=== PATIENT | male | born 1950 | race Caucasian/White ===

== ENCOUNTER 2022-04-16 14:15 | Outpatient (RCR) | payer OTHER, SELFPAY ==
[2022-03-26 13:40] VITALS: BP 141/83; PULSE 83; TEMP 36.6
--- NOTE | 2022-03-26 15:01 | HP.PCM_ITS ---
History of Present Illness Date of Service: 03/26/22 Chief Complaint: Non healing right leg ulcer History of Wound: Patient is 71 year old male who has had a non healing wound on his right anterior leg. He has had this ulcer for approximately 9 months. He has been cleaning it daily with hydrogen peroxide and then placing antibiotic ointment. He has issues with bilateral lower extremity edema. He states he wears compression socks and an MATT wrap to help his chronic edema. He does sleep in a recliner. He has a history of spinal stenosis with surgeries 12/05, 10/08, and 02/09 and hypothyroidism and polyneuropathy from the back pain, and also has lower extremity leg weakness from his back pain. Obtained a wound culture today, 03/26/22. Today he denies fever, chills, nausea and vomiting. He states he has a good appetite. Progress of Wound: Right leg ulcer is pink. He has significant edema present. [facility] Medical History (Updated 03/29/22 @ 22:28 by Adele Stanford SPICE ROOM WORKER, SPICE ROOM WORKER-C) Back pain with history of spinal surgery Edema of both lower extremities Hypothyroidism Polyneuropathy Spinal stenosis ROS Constitutional Constitutional: Denies chills or fever(s) Eyes Eyes: Reports none ENT HEENT: Reports none Cardiovascular Cardiovascular: Reports leg edema and leg ulcers; Denies chest pain, dyspnea or vomiting Respiratory/Chest Respiratory/Chest: Reports none Gastrointestinal Gastrointestinal: Denies diarrhea, nausea or vomiting Musculoskeletal Musculoskeletal: Reports back pain and muscle weakness Integumentary Integumentary: Reports skin ulcer and skin swelling Neurologic Neurologic: Reports weakness and other Details: History of polyneuropathy Psychiatric Psychiatric: Reports none Endocrine Endocrinology: Reports other Details: History of hypothyroidism Vital Signs Vital Signs Vital Signs: 03/26/22 13:40 Temperature 97.8 F Temperature Source Temporal Pulse Rate 83 Blood Pressure 141/83 H Blood Pressure Mean 102 Blood Pressure Source Monitor Blood Pressure Position Sitting Blood Pressure Location Right Arm Physical Exam Const alert, oriented x3 and no apparent distress General Appearance: cooperative HEENT normocephalic Neck full ROM Resp normal respiratory effort, normal air movement and clear to auscultation bilaterally Effort and Inspection: able to speak in complete sentences Cardio regular rate and regular rhythm GI normal to inspection, nondistended, normoactive bowel sounds, soft to palpation and non-tender Extremity normal capillary refill Extremity Narrative: Bilateral lower extremity edema which is worse on the the right than the left Skin Wound Narrative: Right anterior leg ulcer is superficial in depth. It is tender to palpation. Neuro oriented x3 and moves all extremities Psych mental status grossly normal Debridement Note Debridement Note Wound debrided: anterior leg ulcer Laterality: Right Type of Debridement: Excisional debridement Anesthesia Used: 5% Lidocaine Gel Depth: Down to and including healthy tissue and in the subcutaneous layer Percentage of wound debrided: 100 Instrument Used: 5mm curette Tissue Removed: Devitalized tissue and slough Severity: Fat Layer Exposed Amount of bleeding with debridement: Mild Bleeding Controlled with: Pressure and Compression and gauze Patient tolerated procedure: Patient tolerated procedure well Post-Debridement Measurements and Additional Note: Post-Debridement Measurements/Treatment - Nurse 1 - General Ulcer Assessment Start: 03/26/22 13:40 Freq: Status: Active Protocol: GREGORY Activity Type Activity Date Activity User E-sign Co-sign Detail Recorded Client Recorded Date Recorded By Document 03/26/22 13:40 CHUCK [id number] 03/26/22 13:51 CHUCK 03/26/22 13:40 WC - Today's Visit Information Type of service Follow-up Visit (Physician/PROCESS ENVIRONMENTAL TECHNICIAN ) Arrival Mode Ambulatory Patient Identification Verified (Name & Yes ) Vital Signs Temperature (97.8 F-99.1 F) 97.8 F Temperature Source Temporal Pulse Rate (60-100) 83 Pulse Location Monitor Blood Pressure (90/60-120/80) 141/83 H Blood Pressure Mean 102 Source Monitor Position Sitting Blood Pressure Location Right Arm History Since Last Visit- (Skip if this is Patient's initial visit) Have you changed medications since your No last visit? Any new allergies or adverse reactions No Had a fall/change in ADL's that may No increase risk of falls Signs or symptoms of abuse and/or No neglect since last visit Have you been in the hospital since your No last visit? Has dressing in place as prescribed No Has compression in place as prescribed N/A Has offloadiing in place as prescribed N/A Experienced any changes in pain level or No management Left Footwear Regular Shoe Right Footwear Regular Shoe Pain Scale: 0-10 Numeric Is Patient Pain Free? Yes - Nurse 1 - General Ulcer Measurement Start: 03/26/22 13:40 Freq: Status: Active Protocol: Activity Type Activity Date Activity User E-sign Co-sign Detail Recorded Client Recorded Date Recorded By Document 03/26/22 13:40 [id number] 03/26/22 13:51 03/26/22 13:40 Wound Center Nurse 1 #1 Right Gallegos -Current Size (cm) - Length 3.6 -Current Size (cm) - Width 2.2 -Current Size (cm) - Depth 0.1 -Total Square Cm 7.92 -Exudate Amt Medium -Exudate Type Serosanguineous -Wound Margin Distinct, Outline Attached -Granulation Amt Medium (34-66%) -Granulation Quality [place] -Necrosis Amt Small (1-33%) -Necrotic Tissue Type Adherent Slough -Texture (Taylor-wound Skin Appearance) Assessed, Scarring -Moisture (Taylor-wound Skin Appearance) No Abnormality, Assessed -Color (Taylor-wound Skin Appearance) No Abnormality, Assessed -Temperature (Taylor-wound Skin No Abnormality Appearance) (Pt Warm) -Tenderness on Palpation (Taylor-wound No Skin Appearance) -Ulcer Cleansing Rinsed/ Irrigated with Saline -Foul Odor after Cleansing No -Anesthetic Used 5% Lidocaine Gel Right Calf (cm) 44 Right Ankle (cm) 28.5 Left Calf (cm) 37.5 Left Ankle (cm) 24 - Nurse 3 - General Ulcer D/C NN Start: 03/26/22 13:40 Freq: Status: Active Protocol: Activity Type Activity Date Activity User E-sign Co-sign Detail Recorded Client Recorded Date Recorded By Document 03/26/22 14:44 [facility] [id number] 03/26/22 14:45 [facility] 03/26/22 14:44 Wound Care Nurse 3 #1 Right Gallegos -Ulcer Cleansing Rinsed/ Irrigated with Saline -Foul Odor after Cleansing No -Primary Dressing Applied Promogran Jayna Matter -Other Dressing DRSG PER [place] ELEVATOR INSTALLER APPRENTICE -Primary Dressing Covered/Secured with Dry Gauze & Roll Gauze, Secured with Tape -Promogran Jayna Matter 1 Treatment Response Procedure Tolerated Well Pain Scale: 0-10 Numeric Is Patient Pain Free? Yes WC - Visit Discharge Discharge Condition Stable Ambulatory Status Wheelchair Transportation Private Auto Accompanied by Charges/Coding Visit Charges Office Visits / Consults: 45847 OV L4 Est (25 modifier) Procedures Integumentary 111xxx-113xx: [id number] Ani subq tissue 20 sq cm/< Assessment/Plan Assessment/Plan (1) Ulcer of right lower extremity with fat layer exposed: CODE(S): L97.912 - Non-pressure chronic ulcer of unspecified part of right lower leg with fat layer exposed (2) Edema of both lower extremities: CODE(S): R60.0 - Localized edema (3) Polyneuropathy: CODE(S): G62.9 - Polyneuropathy, unspecified PLAN: Plan Patient was evaluated at the wound healing center and a subcutaneous debridement was performed as documented. Wound care - Wash ulcer with soap and water daily and pat dry. Place Jayna to the ulcer and cover with dry gauze daily. Compression - Continue compression socks with MATT wraps as previously have been applying. Wound culture obtained today, 03/26/22. Depending on the results of the culture, it may necessitate the need for treatment with antibiotics. Will order vascular studies since he has had this non healing ulcer for at least 9 months. Follow up on week.
[2022-04-02 13:36] VITALS: BP 145/91; PULSE 86; RESP 16
--- NOTE | 2022-04-02 14:25 | PCM.WC.PN ---
History of Present Illness Date of Service: 04/02/22 Chief Complaint: Non healing right leg ulcer History of Wound: Patient is 71 year old male who has had a non healing wound on his right anterior leg. He has had this ulcer for approximately 9 months. He has been cleaning it daily with hydrogen peroxide and then placing antibiotic ointment. He has issues with bilateral lower extremity edema. He states he wears compression socks and an MATT wrap to help his chronic edema. He does sleep in a recliner. He has a history of spinal stenosis with surgeries 12/05, 10/08, and 02/09 and hypothyroidism and polyneuropathy from the back pain, and also has lower extremity leg weakness from his back pain. Obtained a wound culture today, 03/26/22. Today he denies fever, chills, nausea and vomiting. He states he has a good appetite. Progress of Wound: Right leg ulcer is pink. He has significant edema present. Objective Data Objective Data Vital Signs: Vital Signs Temp Pulse Resp BP O2 Del Method 97.8 F 86 16 145/91 H Room Air 03/26/22 13:40 04/02/22 13:36 04/02/22 13:36 04/02/22 13:36 04/02/22 13:36 Oxygen Delivery Method Room Air Lab / Micro Data Micro: Microbiology 03/26/22 14:30 Wound - Leg, Right Gram Stain - Final 03/26/22 14:30 Wound - Leg, Right Wound Culture - Final Staphylococcus aureus 03/26/22 14:30 Wound - Leg, Right Anaerobic Culture - Final Debridement Note Debridement Note Post-Debridement Measurements and Additional Note: Post-Debridement Measurements/Treatment - Nurse 1 - General Ulcer Assessment Start: 03/26/22 13:40 Freq: Status: Active Protocol: LUIZ.LOWLUKET Activity Type Activity Date Activity User E-sign Co-sign Detail Recorded Client Recorded Date Recorded By Document 03/26/22 13:40 KR [id number] 03/26/22 13:51 KR Document 04/02/22 13:[address] [facility] [id number] 04/02/22 13:51 BMF 03/26/22 04/02/22 13:40 13:36 - Today's Visit Information Type of service Follow-up Visit Follow-up Visit (Physician/SYSTEMS TEST ANALYST (Physician/SYSTEMS TEST ANALYST ) ) Arrival Mode Ambulatory Wheelchair Transfer Assistance Other Transfer Assist (Other) 1 Patient Identification Verified (Name & Yes Yes ) Patient Requires Transmission-Based No Precautions Vital Signs Temperature (97.8 F-99.1 F) 97.8 F Temperature Source Temporal Pulse Rate (60-100) 83 86 Pulse Location Monitor Monitor Respiratory Rate (12-18) 16 Respiratory rate source Observation Oxygen Delivery Method Room Air Blood Pressure (90/60-120/80) 141/83 H 145/91 H Blood Pressure Mean (mm Hg) 102 109 Source Monitor Monitor Position Sitting Sitting Blood Pressure Location Right Arm Left Arm History Since Last Visit- (Skip if this is Patient's initial visit) Have you changed medications since your No No last visit? Any new allergies or adverse reactions No No Had a fall/change in ADL's that may No No increase risk of falls Signs or symptoms of abuse and/or No No neglect since last visit Have you been in the hospital since your No No last visit? Has dressing in place as prescribed No No Has compression in place as prescribed N/A No Has offloadiing in place as prescribed N/A N/A Experienced any changes in pain level or No No management Left Footwear Regular Shoe Regular Shoe Right Footwear Regular Shoe Regular Shoe Pain Scale: 0-10 Numeric Is Patient Pain Free? Yes Yes - Nurse 1 - General Ulcer Measurement Start: 03/26/22 13:40 Freq: Status: Active Protocol: Activity Type Activity Date Activity User E-sign Co-sign Detail Recorded Client Recorded Date Recorded By Document 03/26/22 13:40 [id number] 03/26/22 13:51 KR Document 04/02/22 13:[address] [facility] [id number] 04/02/22 13:[address] [facility] 03/26/22 04/02/22 13:40 13:36 Wound Center Nurse 1 #1 Right Gallegos -Combined with other wound No -Current Size (cm) - Length 3.6 3.5 -Current Size (cm) - Width 2.2 5.8 -Current Size (cm) - Depth 0.1 0.1 -Total Square Cm 7.92 20.30 -Photo Taken No -Epithelialization None Present -Tunneling No -Undermining/Tunneling No -Circular Undermining No -Exudate Amt Medium Large -Exudate Type Serosanguineous Serosanguineous -Wound Margin Distinct, Distinct, Outline Outline Attached Attached -Granulation Amt Medium (34-66%) Large (67-100%) -Granulation Quality [place] Red -Slough/Fibrin Yes -Necrosis Amt Small (1-33%) Small (1-33%) -Necrotic Tissue Type Adherent Slough Adherent Slough -Texture (Taylor-wound Skin Appearance) Assessed, Assessed, Scarring Excoriation, Scarring -Moisture (Taylor-wound Skin Appearance) No Abnormality, Assessed, Assessed Maceration -Color (Taylor-wound Skin Appearance) No Abnormality, Assessed, Assessed Erythema,Palor -Temperature (Taylor-wound Skin No Abnormality No Abnormality Appearance) (Pt Warm) (Pt Warm) -Tenderness on Palpation (Taylor-wound No No Skin Appearance) -Ulcer Cleansing Rinsed/ Soap and Water Irrigated with Saline -Foul Odor after Cleansing No No -Anesthetic Used 5% Lidocaine 4% Lidocaine Gel Solution Lower Limb Edema Present Yes Right Calf (cm) 44 Right Ankle (cm) 28.5 Left Calf (cm) 37.5 43.8 Left Ankle (cm) 24 28.5 WC - Nurse 2 - General Ulcer CM Notes Start: 03/26/22 13:40 Freq: Status: Active Protocol: Activity Type Activity Date Activity User E-sign Co-sign Detail Recorded Client Recorded Date Recorded By Document 03/26/22 15:21 PL [id number] 03/26/22 15:22 PL Document 04/02/22 14:14 MW [id number] 04/02/22 14:21 MW 03/26/22 04/02/22 15:21 14:14 Wound Center Nurse 2 #2 RIGHT LATERAL GALLEGOS -Time 14:20 -Correct Patient Yes -Correct Side, Site, Position Yes -Correct Procedure Yes -Procedure Performed Yes -Type of Procedure Debridement -Clinical Debridement Subcutaneous -Tissue Removed Subcutaneous -Post Debridement (cm) - Length 0.6 -Post Debridement (cm) - Width 0.6 -Post Debridement (cm) - Depth 0.1 -Total Square (Post) (cm) 0.36 -Area of Debridement (cm) - Length 0.6 -Area of Debridement (cm) - Width 0.6 -Total Square (Area) (cm) 0.36 -Tunneling No -Undermining/Tunneling No -Circular Undermining No -Wound/Ulcer Outcome Not Healed -Ulcer Cleansing Rinsed/ Irrigated with Saline -Foul Odor after Cleansing No -Bioengineered Tissue No -Bleeding Controlled with Pressure -Treatment Response Procedure Tolerated Well -Offloading No -Debridement - Subq, 1st 20sq cm No #1 Right Gallegos -Time 14:22 14:15 -Correct Patient Yes Yes -Correct Side, Site, Position Yes Yes -Correct Procedure Yes Yes -Procedure Performed Yes Yes -Type of Procedure Debridement Debridement -Clinical Debridement Subcutaneous Subcutaneous -Tissue Removed Subcutaneous Subcutaneous -Post Debridement (cm) - Length 3.8 3.8 -Post Debridement (cm) - Width 3.2 2.6 -Post Debridement (cm) - Depth 0.1 0.1 -Total Square (Post) (cm) 12.16 9.88 -Area of Debridement (cm) - Length 3.8 3.8 -Area of Debridement (cm) - Width 3.2 2.6 -Total Square (Area) (cm) 12.16 9.88 -Tunneling No No -Undermining/Tunneling No No -Circular Undermining No No -Wound/Ulcer Outcome Not Healed Not Healed -Ulcer Cleansing Rinsed/ Rinsed/ Irrigated with Irrigated with Saline Saline -Foul Odor after Cleansing No No -Bioengineered Tissue No No -Bleeding Controlled with Pressure Pressure -Treatment Response Procedure Procedure Tolerated Well Tolerated Well -Offloading No -Debridement - Subq, 1st 20sq cm Yes Yes Pain Scale: 0-10 Numeric Is Patient Pain Free? Yes Yes - Nurse 3 - General Ulcer D/C NN Start: 03/26/22 13:40 Freq: Status: Active Protocol: Activity Type Activity Date Activity User E-sign Co-sign Detail Recorded Client Recorded Date Recorded By Document 03/26/22 14:[address] [facility] [id number] 03/26/22 14:[address] [facility] 03/26/22 14:44 Wound Care Nurse 3 #1 Right Gallegos -Ulcer Cleansing Rinsed/ Irrigated with Saline -Foul Odor after Cleansing No -Primary Dressing Applied Promogran Jayna Matter -Other Dressing DRSG PER [place] MAINTENANCE PERSON -Primary Dressing Covered/Secured with Dry Gauze & Roll Gauze, Secured with Tape -Promogran Jayna Matter 1 Treatment Response Procedure Tolerated Well Pain Scale: 0-10 Numeric Is Patient Pain Free? Yes - Visit Discharge Discharge Condition Stable Ambulatory Status Wheelchair Transportation Private Auto Accompanied by
[2022-04-09 13:26] VITALS: BP 150/86; PULSE 82; RESP 18; TEMP 36.6
--- NOTE | 2022-04-09 15:15 | PN.PCM_ITS ---
History of Present Illness Date of Service: 04/09/22 Chief Complaint: Non healing right leg ulcer History of Wound: Patient is 71 year old male who has had a non healing wound on his right anterior leg. He has had this ulcer for approximately 9 months. He has been cleaning it daily with hydrogen peroxide and then placing antibiotic ointment. He has issues with bilateral lower extremity edema. He states he wears compression socks and an MATT wrap to help his chronic edema. He does sleep in a recliner. He has a history of spinal stenosis with surgeries 12/05, 10/08, and 02/09 and hypothyroidism and polyneuropathy from the back pain, and also has lower extremity leg weakness from his back pain. Obtained a wound culture today, 03/26/22. Wound care - Alireza covered with superabsorber/ABD. Wear compression stockings with and MATT wrap over the the right compression stocking. Today he denies fever, chills, nausea and vomiting. He states he has a good appetite. Progress of Wound: Right leg lateral leg ulcer and anterior leg ulcers are stable. . He continues to have significant edema present. Objective Data Objective Data Vital Signs: Vital Signs Temp Pulse Resp BP O2 Del Method 97.8 F 82 18 150/86 H Room Air 04/09/22 13:26 04/09/22 13:26 04/09/22 13:26 04/09/22 13:26 04/02/22 13:36 Oxygen Delivery Method Room Air Lab / Micro Data Micro: Microbiology 03/26/22 14:30 Wound - Leg, Right Gram Stain - Final 03/26/22 14:30 Wound - Leg, Right Wound Culture - Final Staphylococcus aureus 03/26/22 14:30 Wound - Leg, Right Anaerobic Culture - Final Charges/Coding Procedures Integumentary [id number]: [id number] Ani subq tissue 20 sq cm/< Physical Exam Const alert and oriented x3 General Appearance: cooperative HEENT normocephalic Neck full ROM Resp normal respiratory effort Effort and Inspection: able to speak in complete sentences Cardio regular rate Extremity normal capillary refill Extremity Narrative: Bilateral lower extremity edema which is worse on the the right than the left. Right has +3 pitting edema. Skin Wound Narrative: Right anterior leg ulcer is stable, the base is pink. The right lateral leg ulcer is stable and the base is pink. Neuro oriented x3 and moves all extremities Psych mental status grossly normal Debridement Note Debridement Note Wound debrided: anterior leg ulcer Laterality: Right Type of Debridement: Excisional debridement Anesthesia Used: 5% Lidocaine Gel Depth: Down to and including healthy tissue and in the subcutaneous layer Percentage of wound debrided: 100 Instrument Used: 5mm curette Tissue Removed: Devitalized tissue and slough Severity: Fat Layer Exposed Amount of bleeding with debridement: Mild Bleeding Controlled with: Pressure and Compression and gauze Patient tolerated procedure: Patient tolerated procedure well Post-Debridement Measurements and Additional Note: Post-Debridement Measurements/Treatment - Nurse 1 - General Ulcer Assessment Start: 03/26/22 13:40 Freq: Status: Active Protocol: LUIZSnooxNarcisa Activity Type Activity Date Activity User E-sign Co-sign Detail Recorded Client Recorded Date Recorded By Document 03/26/22 13:40 KR [id number] 03/26/22 13:51 KR Document 04/02/22 13:36 BMF [id number] 04/02/22 13:51 BMF Document 04/09/22 13:26 DL [id number] 04/09/22 13:32 DL 03/26/22 04/02/22 04/09/22 13:40 13:36 13:26 - Today's Visit Information Type of service Follow-up Visit Follow-up Visit Follow-up Visit (Physician/CHAIR INSPECTOR AND LEVELER (Physician/CHAIR INSPECTOR AND LEVELER (Physician/CHAIR INSPECTOR AND LEVELER ) ) ) Arrival Mode Ambulatory Wheelchair Wheelchair Transfer Assistance Other Transfer Assist (Other) 1 x1 Patient Identification Verified (Name & Yes Yes Yes ) Patient Requires Transmission-Based No No Precautions Vital Signs Temperature (97.8 F-99.1 F) 97.8 F 97.8 F Temperature Source Temporal Temporal Pulse Rate (60-100) 83 86 82 Pulse Location Monitor Monitor Monitor Respiratory Rate (12-18) 16 18 Respiratory rate source Observation Observation Oxygen Delivery Method Room Air Blood Pressure (90/60-120/80) 141/83 H 145/91 H 150/86 H Blood Pressure Mean (mm Hg) 102 109 107 Source Monitor Monitor Monitor Position Sitting Sitting Blood Pressure Location Right Arm Left Arm History Since Last Visit- (Skip if this is Patient's initial visit) Have you changed medications since your No No No last visit? Any new allergies or adverse reactions No No No Had a fall/change in ADL's that may No No No increase risk of falls Signs or symptoms of abuse and/or No No No neglect since last visit Have you been in the hospital since your No No Yes last visit? Has dressing in place as prescribed No No Has compression in place as prescribed N/A No N/A Has offloadiing in place as prescribed N/A N/A Yes Experienced any changes in pain level or No No No management Left Footwear Regular Shoe Regular Shoe Right Footwear Regular Shoe Regular Shoe Pain Scale: 0-10 Numeric Is Patient Pain Free? Yes Yes Yes WC - Nurse 1 - General Ulcer Measurement Start: 03/26/22 13:40 Freq: Status: Active Protocol: Activity Type Activity Date Activity User E-sign Co-sign Detail Recorded Client Recorded Date Recorded By Document 03/26/22 13:40 KR [id number] 03/26/22 13:51 KR Document 04/02/22 13:36 BMF [id number] 04/02/22 13:51 BMF Document 04/09/22 13:26 DL [id number] 04/09/22 13:32 DL 03/26/22 04/02/22 04/09/22 13:40 13:36 13:26 Wound Center Nurse 1 #2 RIGHT LATERAL GALLEGOS -Current Size (cm) - Length 0.4 -Current Size (cm) - Width 0.8 -Current Size (cm) - Depth 0.1 -Total Square Cm 0.32 -Photo Taken No -Exudate Amt Medium -Exudate Type Serosanguineous -Wound Margin Distinct, Outline Attached -Granulation Quality Pale -Necrosis Amt None Present (0 %) -Structure Exposed N/A -Texture (Taylor-wound Skin Appearance) Scarring -Moisture (Taylor-wound Skin Appearance) Dry/Scaly -Color (Taylor-wound Skin Appearance) Hemosiderin Staining -Temperature (Taylor-wound Skin No Abnormality Appearance) (Pt Warm) -Tenderness on Palpation (Taylor-wound No Skin Appearance) -Ulcer Cleansing Soap and Water -Foul Odor after Cleansing No -Anesthetic Used 5% Lidocaine Gel #1 Right Gallegos -Combined with other wound No -Current Size (cm) - Length 3.6 3.5 3.8 -Current Size (cm) - Width 2.2 5.8 3 -Current Size (cm) - Depth 0.1 0.1 0.1 -Total Square Cm 7.92 20.30 11.4 -Photo Taken No No -Epithelialization None Present -Tunneling No -Undermining/Tunneling No -Circular Undermining No -Exudate Amt Medium Large Medium -Exudate Type Serosanguineous Serosanguineous Serosanguineous -Wound Margin Distinct, Distinct, Distinct, Outline Outline Outline Attached Attached Attached -Granulation Amt Medium (34-66%) Large (67-100%) Large (67-100%) -Granulation Quality [employer] Red Red -Slough/Fibrin Yes -Necrosis Amt Small (1-33%) Small (1-33%) -Necrotic Tissue Type Adherent Slough Adherent Slough Adherent Slough -Structure Exposed N/A -Texture (Taylor-wound Skin Appearance) Assessed, Assessed, Scarring Scarring Excoriation, Scarring -Moisture (Taylor-wound Skin Appearance) No Abnormality, Assessed, Dry/Scaly Assessed Maceration -Color (Taylor-wound Skin Appearance) No Abnormality, Assessed, Hemosiderin Assessed Erythema,Palor Staining -Temperature (Taylor-wound Skin No Abnormality No Abnormality No Abnormality Appearance) (Pt Warm) (Pt Warm) (Pt Warm) -Tenderness on Palpation (Taylor-wound No No No Skin Appearance) -Ulcer Cleansing Rinsed/ Soap and Water Soap and Water Irrigated with Saline -Foul Odor after Cleansing No No Yes, Due to Product Use -Anesthetic Used 5% Lidocaine 4% Lidocaine 5% Lidocaine Gel Solution Gel Lower Limb Edema Present Yes Right Calf (cm) 44 Right Ankle (cm) 28.5 Left Calf (cm) 37.5 43.8 Left Ankle (cm) 24 28.5 WC - Nurse 2 - General Ulcer CM Notes Start: 03/26/22 13:40 Freq: Status: Active Protocol: Activity Type Activity Date Activity User E-sign Co-sign Detail Recorded Client Recorded Date Recorded By Document 03/26/22 15:21 PL [id number] 03/26/22 15:22 PL Document 04/02/22 14:14 MW [id number] 04/02/22 14:21 MW Document 04/09/22 13:48 MW [id number] 08/18/22 14:08 MW 03/26/22 04/02/22 08 15:21 14:14 13:48 Wound Center Nurse 2 #2 RIGHT LATERAL GALLEGOS -Time 14:20 13:49 -Correct Patient Yes Yes -Correct Side, Site, Position Yes Yes -Correct Procedure Yes Yes -Procedure Performed Yes Yes -Type of Procedure Debridement Debridement -Clinical Debridement Subcutaneous Subcutaneous -Tissue Removed Subcutaneous Subcutaneous -Post Debridement (cm) - Length 0.6 0.8 -Post Debridement (cm) - Width 0.6 0.8 -Post Debridement (cm) - Depth 0.1 0.2 -Total Square (Post) (cm) 0.36 0.64 -Area of Debridement (cm) - Length 0.6 0.8 -Area of Debridement (cm) - Width 0.6 0.8 -Total Square (Area) (cm) 0.36 0.64 -Tunneling No No -Undermining/Tunneling No No -Circular Undermining No No -Wound/Ulcer Outcome Not Healed Not Healed -Ulcer Cleansing Rinsed/ Rinsed/ Irrigated with Irrigated with Saline Saline -Foul Odor after Cleansing No No -Bioengineered Tissue No No -Bleeding Controlled with Pressure Pressure -Treatment Response Procedure Procedure Tolerated Well Tolerated Well -Offloading No No -Debridement - Subq, 1st 20sq cm No Yes #1 Right Gallegos -Time 14:22 14:15 13:50 -Correct Patient Yes Yes Yes -Correct Side, Site, Position Yes Yes Yes -Correct Procedure Yes Yes Yes -Procedure Performed Yes Yes Yes -Type of Procedure Debridement Debridement Debridement -Clinical Debridement Subcutaneous Subcutaneous Subcutaneous -Tissue Removed Subcutaneous Subcutaneous Subcutaneous -Post Debridement (cm) - Length 3.8 3.8 3.8 -Post Debridement (cm) - Width 3.2 2.6 2.7 -Post Debridement (cm) - Depth 0.1 0.1 0.1 -Total Square (Post) (cm) 12.16 9.88 10.26 -Area of Debridement (cm) - Length 3.8 3.8 3.8 -Area of Debridement (cm) - Width 3.2 2.6 2.7 -Total Square (Area) (cm) 12.16 9.88 10.26 -Tunneling No No No -Undermining/Tunneling No No No -Circular Undermining No No No -Wound/Ulcer Outcome Not Healed Not Healed Not Healed -Ulcer Cleansing Rinsed/ Rinsed/ Rinsed/ Irrigated with Irrigated with Irrigated with Saline Saline Saline -Foul Odor after Cleansing No No No -Bioengineered Tissue No No No -Bleeding Controlled with Pressure Pressure Pressure -Treatment Response Procedure Procedure Procedure Tolerated Well Tolerated Well Tolerated Well -Offloading No No -Debridement - Subq, 1st 20sq cm Yes Yes No Pain Scale: 0-10 Numeric Is Patient Pain Free? Yes Yes Yes - Nurse 3 - General Ulcer D/C NN Start: 03/26/22 13:40 Freq: Status: Active Protocol: Activity Type Activity Date Activity User E-sign Co-sign Detail Recorded Client Recorded Date Recorded By Document 03/26/22 14:44 [facility] [id number] 03/26/22 14:45 BM Document 04/02/22 14:35 DL [id number] 04/02/22 14:37 DL 03/26/22 04/02/22 14:44 14:35 Wound Care Nurse 3 #2 RIGHT LATERAL GALLEGOS -Ulcer Cleansing Rinsed/ Irrigated with Saline -Foul Odor after Cleansing No -Primary Dressing Applied Promogran Alireza Matter -Primary Dressing Covered/Secured with Dry Gauze & Roll Gauze, Secured with Tape -Promogran Alireza Matter 1 #1 Right Gallegos -Ulcer Cleansing Rinsed/ Rinsed/ Irrigated with Irrigated with Saline Saline -Foul Odor after Cleansing No No -Primary Dressing Applied Promogran Alireza Matter -Other Dressing DRSG [employer] alireza -Primary Dressing Covered/Secured with Dry Gauze & Dry Gauze & Roll Gauze, Roll Gauze, Secured with Secured with Tape Tape -Promogran Alireza Matter 1 Right -Stockings Yes Treatment Response Procedure Procedure Tolerated Well Tolerated Well Pain Scale: 0-10 Numeric Is Patient Pain Free? Yes Yes WC - Visit Discharge Discharge Condition Stable Stable Ambulatory Status Wheelchair Wheelchair Transportation Private Auto Private Auto Accompanied by Facility Type Home Health Orders Sent Yes Additional Wound Wound debrided: lateral leg ulcer Laterality: Right Type of Debridement: Excisional debridement Anesthesia Used: 5% Lidocaine Gel Depth: Down to and including healthy tissue and in the subcutaneous layer Percentage of wound debrided: 100 Instrument Used: 3mm curette Tissue Removed: Devitalized tissue and slough Severity: Fat Layer Exposed Amount of bleeding with debridement: Mild Bleeding Controlled with: Pressure and Compression and gauze Patient tolerated procedure: Patient tolerated procedure well Assessment/Plan Assessment/Plan (1) Ulcer of right lower extremity with fat layer exposed: CODE(S): L97.912 - Non-pressure chronic ulcer of unspecified part of right lower leg with fat layer exposed (2) Edema of both lower extremities: CODE(S): R60.0 - Localized edema (3) Polyneuropathy: CODE(S): G62.9 - Polyneuropathy, unspecified PLAN: Plan Patient was evaluated at the wound healing center and a subcutaneous debridement was performed as documented. Wound care - Wash ulcer with soap and water daily and pat dry. Place Alireza (do not moisten) to the ulcer and cover with dry gauze daily. Compression - Continue compression socks with MATT wraps as previously have been applying, on the right leg place MATT wrap over the compression stocking. Wound culture obtained on 03/26/22, which was positive for Staphylococcus aureus.? He is taking Doxycycline. Will order vascular studies since he has had this non healing ulcer for at least 9 months. Follow up on week.
[2022-04-16 14:23] VITALS: BP 132/68; PULSE 88; TEMP 36.5
--- NOTE | 2022-04-16 16:36 | PN.PCM_ITS ---
History of Present Illness Date of Service: 04/16/22 Chief Complaint: Non healing right leg ulcer History of Wound: Patient is 71 year old male who has had a non healing wound on his right anterior leg. He has had this ulcer for approximately 9 months. He has been cleaning it daily with hydrogen peroxide and then placing antibiotic ointment. He has issues with bilateral lower extremity edema. He states he wears compression socks and an KRISH wrap to help his chronic edema. He does sleep in a recliner. He has a history of spinal stenosis with surgeries 12/05, 10/08, and 02/09 and hypothyroidism and polyneuropathy from the back pain, and also has lower extremity leg weakness from his back pain. Obtained a wound culture today, 03/26/22. Wound care - Alireza covered with superabsorber/ABD. Wear compression stockings with and KRISH wrap over the the right compression stocking. Today he denies fever, chills, nausea and vomiting. He states he has a good appetite. Progress of Wound: Right lateral leg ulcer and right anterior leg ulcers are stable. . His edema is showing some improvement with the edema. Objective Data Objective Data Vital Signs: Vital Signs Temp Pulse Resp BP O2 Del Method 97.7 F L 88 18 132/68 H Room Air 04/16/22 14:23 04/16/22 14:23 04/09/22 13:26 04/16/22 14:23 04/02/22 13:36 Oxygen Delivery Method Room Air Lab / Micro Data Micro: Microbiology 03/26/22 14:30 Wound - Leg, Right Gram Stain - Final 03/26/22 14:30 Wound - Leg, Right Wound Culture - Final Staphylococcus aureus 03/26/22 14:30 Wound - Leg, Right Anaerobic Culture - Final Charges/Coding Procedures Integumentary 111xxx-113xx: [id number] Ani subq tissue 20 sq cm/< Physical Exam Const alert and oriented x3 General Appearance: cooperative HEENT normocephalic Neck full ROM Resp normal respiratory effort Effort and Inspection: able to speak in complete sentences Cardio regular rate Extremity normal capillary refill Extremity Narrative: Bilateral lower extremity edema which is worse on the the right than the left. Right has +2 pitting edema, which is an improvement compared to last week. Skin Wound Narrative: Right anterior leg ulcer and the right lateral leg ulcers are smaller in size with pink bases. Neuro oriented x3 and moves all extremities Psych mental status grossly normal Debridement Note Debridement Note Wound debrided: anterior leg ulcer Laterality: Right Type of Debridement: Excisional debridement Anesthesia Used: 5% Lidocaine Gel Depth: Down to and including healthy tissue and in the subcutaneous layer Percentage of wound debrided: 100 Instrument Used: 5mm curette Tissue Removed: Devitalized tissue and slough Severity: Fat Layer Exposed Amount of bleeding with debridement: Mild Bleeding Controlled with: Pressure and Compression and gauze Patient tolerated procedure: Patient tolerated procedure well Post-Debridement Measurements and Additional Note: Post-Debridement Measurements/Treatment - Nurse 1 - General Ulcer Assessment Start: 03/26/22 13:40 Freq: Status: Active Protocol: GREGORY Activity Type Activity Date Activity User E-sign Co-sign Detail Recorded Client Recorded Date Recorded By Document 03/26/22 13:40 KR [id number] 03/26/22 13:51 KR Document 04/02/22 13:36 BMF [id number] 04/02/22 13:51 BMF Document 04/09/22 13:26 DL [id number] 04/09/22 13:32 DL Document 04/16/22 14:23 AK [id number] 04/16/22 14:25 AK 03/26/22 04/02/22 04/09/22 13:40 13:36 13:26 - Today's Visit Information Type of service Follow-up Visit Follow-up Visit Follow-up Visit (Physician/UPTWIST SPINNER (Physician/UPTWIST SPINNER (Physician/UPTWIST SPINNER ) ) ) Arrival Mode Ambulatory Wheelchair Wheelchair Transfer Assistance Other Transfer Assist (Other) 1 x1 Patient Identification Verified (Name & Yes Yes Yes ) Patient Requires Transmission-Based No No Precautions Vital Signs Temperature (97.8 F-99.1 F) 97.8 F 97.8 F Temperature Source Temporal Temporal Pulse Rate (60-100) 83 86 82 Pulse Location Monitor Monitor Monitor Respiratory Rate (12-18) 16 18 Respiratory rate source Observation Observation Oxygen Delivery Method Room Air Blood Pressure (90/60-120/80) 141/83 H 145/91 H 150/86 H Blood Pressure Mean (mm Hg) 102 109 107 Source Monitor Monitor Monitor Position Sitting Sitting Blood Pressure Location Right Arm Left Arm History Since Last Visit- (Skip if this is Patient's initial visit) Have you changed medications since your No No No last visit? Any new allergies or adverse reactions No No No Had a fall/change in ADL's that may No No No increase risk of falls Signs or symptoms of abuse and/or No No No neglect since last visit Have you been in the hospital since your No No Yes last visit? Has dressing in place as prescribed No No Has compression in place as prescribed N/A No N/A Has offloadiing in place as prescribed N/A N/A Yes Experienced any changes in pain level or No No No management Left Footwear Regular Shoe Regular Shoe Right Footwear Regular Shoe Regular Shoe Pain Scale: 0-10 Numeric Is Patient Pain Free? Yes Yes Yes 04/16/22 14:23 WC - Today's Visit Information Type of service Follow-up Visit (Physician/UPTWIST SPINNER ) Arrival Mode Transfer Assistance Transfer Assist (Other) Patient Identification Verified (Name & ) Patient Requires Transmission-Based Precautions Vital Signs Temperature (97.8 F-99.1 F) 97.7 F L Temperature Source Temporal Pulse Rate (60-100) 88 Pulse Location Monitor Respiratory Rate (12-18) Respiratory rate source Oxygen Delivery Method Blood Pressure (90/60-120/80) 132/68 H Blood Pressure Mean (mm Hg) 89 Source Monitor Position Blood Pressure Location History Since Last Visit- (Skip if this is Patient's initial visit) Have you changed medications since your No last visit? Any new allergies or adverse reactions No Had a fall/change in ADL's that may No increase risk of falls Signs or symptoms of abuse and/or No neglect since last visit Have you been in the hospital since your No last visit? Has dressing in place as prescribed Yes Has compression in place as prescribed N/A Has offloadiing in place as prescribed N/A Experienced any changes in pain level or No management Left Footwear Regular Shoe Right Footwear Regular Shoe Pain Scale: 0-10 Numeric Is Patient Pain Free? Yes - Nurse 1 - General Ulcer Measurement Start: 03/26/22 13:40 Freq: Status: Active Protocol: Activity Type Activity Date Activity User E-sign Co-sign Detail Recorded Client Recorded Date Recorded By Document 03/26/22 13:40 KR [id number] 03/26/22 13:51 KR Document 04/02/22 13:36 BMF [id number] 04/02/22 13:51 BMF Document 04/09/22 13:26 DL [id number] 04/09/22 13:32 DL Document 04/16/22 14:23 AK [id number] 04/16/22 14:25 AK 03/26/22 04/02/22 04/09/22 13:40 13:36 13:26 Wound Center Nurse 1 #2 RIGHT LATERAL GALLEGOS -Combined with other wound -Current Size (cm) - Length 0.4 -Current Size (cm) - Width 0.8 -Current Size (cm) - Depth 0.1 -Total Square Cm 0.32 -Photo Taken No -Tunneling -Undermining/Tunneling -Circular Undermining -Change in Wound Grade/Stage -Exudate Amt Medium -Exudate Type Serosanguineous -Wound Margin Distinct, Outline Attached -Granulation Amt -Granulation Quality Pale -Slough/Fibrin -Necrosis Amt None Present (0 %) -Necrotic Tissue Type -Structure Exposed N/A -Texture (Taylor-wound Skin Appearance) Scarring -Moisture (Taylor-wound Skin Appearance) Dry/Scaly -Color (Taylor-wound Skin Appearance) Hemosiderin Staining -Temperature (Taylor-wound Skin No Abnormality Appearance) (Pt Warm) -Tenderness on Palpation (Taylor-wound No Skin Appearance) -Ulcer Cleansing Soap and Water -Foul Odor after Cleansing No -Anesthetic Used 5% Lidocaine Gel #1 Right Gal[place]os -Combined with other wound No -Current Size (cm) - Length 3.6 3.5 3.8 -Current Size (cm) - Width 2.2 5.8 3 -Current Size (cm) - Depth 0.1 0.1 0.1 -Total Square Cm 7.92 20.30 11.4 -Photo Taken No No -Epithelialization None Present -Tunneling No -Undermining/Tunneling No -Circular Undermining No -Change in Wound Grade/Stage -Exudate Amt Medium Large Medium -Exudate Type Serosanguineous Serosanguineous Serosanguineous -Wound Margin Distinct, Distinct, Distinct, Outline Outline Outline Attached Attached Attached -Granulation Amt Medium (34-66%) Large (67-100%) Large (67-100%) -Granulation Quality [place] Red Red -Slough/Fibrin Yes -Necrosis Amt Small (1-33%) Small (1-33%) -Necrotic Tissue Type Adherent Slough Adherent Slough Adherent Slough -Structure Exposed N/A -Texture (Taylor-wound Skin Appearance) Assessed, Assessed, Scarring Scarring Excoriation, Scarring -Moisture (Taylor-wound Skin Appearance) No Abnormality, Assessed, Dry/Scaly Assessed Maceration -Color (Taylor-wound Skin Appearance) No Abnormality, Assessed, Hemosiderin Assessed Erythema,Palor Staining -Temperature (Taylor-wound Skin No Abnormality No Abnormality No Abnormality Appearance) (Pt Warm) (Pt Warm) (Pt Warm) -Tenderness on Palpation (Taylor-wound No No No Skin Appearance) -Ulcer Cleansing Rinsed/ Soap and Water Soap and Water Irrigated with Saline -Foul Odor after Cleansing No No Yes, Due to Product Use -Anesthetic Used 5% Lidocaine 4% Lidocaine 5% Lidocaine Gel Solution Gel Lower Limb Edema Present Yes Right Calf (cm) 44 Right Ankle (cm) 28.5 Left Calf (cm) 37.5 43.8 Left Ankle (cm) 24 28.5 04/16/22 14:23 Wound Center Nurse 1 #2 RIGHT LATERAL GALLEGOS -Combined with other wound No -Current Size (cm) - Length 0.5 -Current Size (cm) - Width 0.6 -Current Size (cm) - Depth 0.1 -Total Square Cm 0.30 -Photo Taken No -Tunneling No -Undermining/Tunneling No -Circular Undermining No -Change in Wound Grade/Stage No -Exudate Amt Medium -Exudate Type Serosanguineous -Wound Margin Distinct, Outline Attached -Granulation Amt Medium (34-66%) -Granulation Quality [place] -Slough/Fibrin Yes -Necrosis Amt Small (1-33%) -Necrotic Tissue Type Adherent Slough -Structure Exposed N/A -Texture (Taylor-wound Skin Appearance) No Abnormality, Assessed -Moisture (Taylor-wound Skin Appearance) No Abnormality, Assessed -Color (Taylor-wound Skin Appearance) No Abnormality, Assessed -Temperature (Taylor-wound Skin No Abnormality Appearance) (Pt Warm) -Tenderness on Palpation (Taylor-wound No Skin Appearance) -Ulcer Cleansing Rinsed/ Irrigated with Saline -Foul Odor after Cleansing No -Anesthetic Used 5% Lidocaine Gel #1 Right [place] -Combined with other wound No -Current Size (cm) - Length 3.6 -Current Size (cm) - Width 2.5 -Current Size (cm) - Depth 0.1 -Total Square Cm 9.00 -Photo Taken No -Epithelialization -Tunneling No -Undermining/Tunneling No -Circular Undermining No -Change in Wound Grade/Stage No -Exudate Amt Medium -Exudate Type Serosanguineous -Wound Margin Distinct, Outline Attached -Granulation Amt Medium (34-66%) -Granulation Quality [place],Red -Slough/Fibrin Yes -Necrosis Amt Medium (34-66%) -Necrotic Tissue Type Adherent Slough -Structure Exposed N/A -Texture (Taylor-wound Skin Appearance) No Abnormality, Assessed -Moisture (Taylor-wound Skin Appearance) No Abnormality, Assessed -Color (Taylor-wound Skin Appearance) No Abnormality, Assessed -Temperature (Taylor-wound Skin No Abnormality Appearance) (Pt Warm) -Tenderness on Palpation (Taylor-wound No Skin Appearance) -Ulcer Cleansing Rinsed/ Irrigated with Saline -Foul Odor after Cleansing No -Anesthetic Used 5% Lidocaine Gel Lower Limb Edema Present No Right Calf (cm) Right Ankle (cm) Left Calf (cm) 40 Left Ankle (cm) 24.5 WC - Nurse 2 - General Ulcer CM Notes Start: 03/26/22 13:40 Freq: Status: Active Protocol: Activity Type Activity Date Activity User E-sign Co-sign Detail Recorded Client Recorded Date Recorded By Document 03/26/22 15:21 PL [id number] 03/26/22 15:22 PL Document 04/02/22 14:14 MW [id number] 04/02/22 14:21 MW Document 04/09/22 13:48 MW [id number] 04/09/22 14:08 MW Document 04/16/22 14:38 PL [id number] 04/16/22 14:40 PL 03/26/22 04/02/22 04/09/22 15:21 14:14 13:48 Wound Center Nurse 2 #2 RIGHT LATERAL GALLEGOS -Time 14:20 13:49 -Correct Patient Yes Yes -Correct Side, Site, Position Yes Yes -Correct Procedure Yes Yes -Procedure Performed Yes Yes -Type of Procedure Debridement Debridement -Clinical Debridement Subcutaneous Subcutaneous -Tissue Removed Subcutaneous Subcutaneous -Post Debridement (cm) - Length 0.6 0.8 -Post Debridement (cm) - Width 0.6 0.8 -Post Debridement (cm) - Depth 0.1 0.2 -Total Square (Post) (cm) 0.36 0.64 -Area of Debridement (cm) - Length 0.6 0.8 -Area of Debridement (cm) - Width 0.6 0.8 -Total Square (Area) (cm) 0.36 0.64 -Tunneling No No -Undermining/Tunneling No No -Circular Undermining No No -Wound/Ulcer Outcome Not Healed Not Healed -Ulcer Cleansing Rinsed/ Rinsed/ Irrigated with Irrigated with Saline Saline -Foul Odor after Cleansing No No -Bioengineered Tissue No No -Bleeding Controlled with Pressure Pressure -Treatment Response Procedure Procedure Tolerated Well Tolerated Well -Offloading No No -Debridement - Subq, 1st 20sq cm No Yes #1 Right Gallegos -Time 14:22 14:15 13:50 -Correct Patient Yes Yes Yes -Correct Side, Site, Position Yes Yes Yes -Correct Procedure Yes Yes Yes -Procedure Performed Yes Yes Yes -Type of Procedure Debridement Debridement Debridement -Clinical Debridement Subcutaneous Subcutaneous Subcutaneous -Tissue Removed Subcutaneous Subcutaneous Subcutaneous -Post Debridement (cm) - Length 3.8 3.8 3.8 -Post Debridement (cm) - Width 3.2 2.6 2.7 -Post Debridement (cm) - Depth 0.1 0.1 0.1 -Total Square (Post) (cm) 12.16 9.88 10.26 -Area of Debridement (cm) - Length 3.8 3.8 3.8 -Area of Debridement (cm) - Width 3.2 2.6 2.7 -Total Square (Area) (cm) 12.16 9.88 10.26 -Tunneling No No No -Undermining/Tunneling No No No -Circular Undermining No No No -Wound/Ulcer Outcome Not Healed Not Healed Not Healed -Ulcer Cleansing Rinsed/ Rinsed/ Rinsed/ Irrigated with Irrigated with Irrigated with Saline Saline Saline -Foul Odor after Cleansing No No No -Bioengineered Tissue No No No -Bleeding Controlled with Pressure Pressure Pressure -Treatment Response Procedure Procedure Procedure Tolerated Well Tolerated Well Tolerated Well -Offloading No No -Debridement - Subq, 1st 20sq cm Yes Yes No Pain Scale: 0-10 Numeric Is Patient Pain Free? Yes Yes Yes 04/16/22 14:38 Wound Center Nurse 2 #2 RIGHT LATERAL GALLEGOS -Time 14:17 -Correct Patient Yes -Correct Side, Site, Position Yes -Correct Procedure Yes -Procedure Performed Yes -Type of Procedure Debridement -Clinical Debridement Subcutaneous -Tissue Removed Subcutaneous -Post Debridement (cm) - Length 0.6 -Post Debridement (cm) - Width 0.6 -Post Debridement (cm) - Depth 0.1 -Total Square (Post) (cm) 0.36 -Area of Debridement (cm) - Length 0.6 -Area of Debridement (cm) - Width 0.6 -Total Square (Area) (cm) 0.36 -Tunneling No -Undermining/Tunneling No -Circular Undermining No -Wound/Ulcer Outcome Not Healed -Ulcer Cleansing Rinsed/ Irrigated with Saline -Foul Odor after Cleansing No -Bioengineered Tissue No -Bleeding Controlled with Pressure -Treatment Response Procedure Tolerated Well -Offloading -Debridement - Subq, 1st 20sq cm No #1 Right Gal[place]os -Time 14:17 -Correct Patient Yes -Correct Side, Site, Position Yes -Correct Procedure Yes -Procedure Performed Yes -Type of Procedure Debridement -Clinical Debridement Subcutaneous -Tissue Removed Subcutaneous -Post Debridement (cm) - Length 3.5 -Post Debridement (cm) - Width 2.6 -Post Debridement (cm) - Depth 0.1 -Total Square (Post) (cm) 9.10 -Area of Debridement (cm) - Length 3.5 -Area of Debridement (cm) - Width 2.6 -Total Square (Area) (cm) 9.10 -Tunneling No -Undermining/Tunneling No -Circular Undermining No -Wound/Ulcer Outcome Not Healed -Ulcer Cleansing Rinsed/ Irrigated with Saline -Foul Odor after Cleansing No -Bioengineered Tissue No -Bleeding Controlled with Pressure -Treatment Response Procedure Tolerated Well -Offloading -Debridement - Subq, 1st 20sq cm Yes Pain Scale: 0-10 Numeric Is Patient Pain Free? Yes - Nurse 3 - General Ulcer D/C NN Start: 03/26/22 13:40 Freq: Status: Active Protocol: Activity Type Activity Date Activity User E-sign Co-sign Detail Recorded Client Recorded Date Recorded By Document 03/26/22 14:44 [facility] [id number] 03/26/22 14:45 BMF Document 04/02/22 14:35 DL [id number] 04/02/22 14:37 DL Document 04/16/22 15:02 VT [id number] 04/16/22 15:08 AK 03/26/22 04/02/22 04/16/22 14:44 14:35 15:02 Wound Care Nurse 3 #2 RIGHT LATERAL GALLEGOS -Ulcer Cleansing Rinsed/ Rinsed/ Irrigated with Irrigated with Saline Saline -Foul Odor after Cleansing No No -Negative Pressure Wound Therapy N/A -Primary Dressing Applied Promogran Promogran Alireza Matter Alireza Matter -Other Dressing ABD -Primary Dressing Covered/Secured with Dry Gauze & Secured with Roll Gauze, Tape Secured with Tape -Promogran Alireza Matter 1 1 #1 Right [place] -Ulcer Cleansing Rinsed/ Rinsed/ Rinsed/ Irrigated with Irrigated with Irrigated with Saline Saline Saline -Foul Odor after Cleansing No No No -Negative Pressure Wound Therapy N/A -Primary Dressing Applied Promogran Promogran Alireza Matter Alireza Matter -Other Dressing DRSG PER [place] MONKEY KEEPER alireza -Primary Dressing Covered/Secured with Dry Gauze & Dry Gauze & Dry Gauze & Roll Gauze, Roll Gauze, Roll Gauze, Secured with Secured with Secured with Tape Tape Tape -Promogran Alireza Matter 1 1 Right -Lotion applied to leg before No compression wrap -Compression Wrap Krish Wrap -Stockings Yes -Other own tubi Treatment Response Procedure Procedure Tolerated Well Tolerated Well Pain Scale: 0-10 Numeric Is Patient Pain Free? Yes Yes Yes WC - Visit Discharge Discharge Condition Stable Stable Stable Ambulatory Status Wheelchair Wheelchair Ambulatory Transportation Private Auto Private Auto Private Auto Accompanied by Medication Reconcilliation completed & No provided to patient/care provider Clinical Summary of Care Provided No Facility Type Home Health Orders Sent Yes Additional Wound Wound debrided: lateral leg ulcer Laterality: Right Type of Debridement: Excisional debridement Anesthesia Used: 5% Lidocaine Gel Depth: Down to and including healthy tissue and in the subcutaneous layer Percentage of wound debrided: 100 Instrument Used: 3mm curette Tissue Removed: Devitalized tissue and slough Severity: Fat Layer Exposed Amount of bleeding with debridement: Mild Bleeding Controlled with: Pressure and Compression and gauze Patient tolerated procedure: Patient tolerated procedure well Assessment/Plan Assessment/Plan (1) Ulcer of right lower extremity with fat layer exposed: CODE(S): L97.912 - Non-pressure chronic ulcer of unspecified part of right lower leg with fat layer exposed (2) Edema of both lower extremities: CODE(S): R60.0 - Localized edema (3) Polyneuropathy: CODE(S): G62.9 - Polyneuropathy, unspecified PLAN: Plan Patient was evaluated at the wound healing center and a subcutaneous debridement was performed as documented. Wound care - Wash ulcer with soap and water daily and pat dry. Place Alireza (do not moisten) to the ulcer and cover with dry gauze and kerlix daily. Compression - Continue compression socks with KRISH wraps as previously have been applying, on the right leg place KRISH wrap over the compression stocking. Wound culture obtained on 03/26/22, which was positive for Staphylococcus aureus.? He is taking Doxycycline. Will order vascular studies since he has had this non healing ulcer for at least 9 months. Follow up on week.
== END 2022-04-22 23:59 | disposition home or self-care (01) ==
LOC: WC 14:15
PROVIDERS: PCP Family Medicine; Visit Provider Nurse Practitioner Family
DX: L97.912 Non-pressure chronic ulcer of unspecified part of right lower leg with fat layer exposed (principal); M62.81 Muscle weakness (generalized); M54.9 Dorsalgia, unspecified; R60.0 Localized edema; G62.9 Polyneuropathy, unspecified
CPT/HCPCS: 11042; 87070; 87075; 87077; 87186; 87205; 99213; G0463

== ENCOUNTER 2022-05-20 14:45 | Outpatient (RCR) | payer OTHER, SELFPAY ==
[2022-04-23 00:42] VITALS: BP 132/68; PULSE 88; RESP 18; TEMP 36.5
[2022-04-23 13:23] VITALS: BP 144/75; PULSE 79; RESP 18; TEMP 36.1
--- NOTE | 2022-04-23 14:54 | PCM.WC.PN ---
History of Present Illness Date of Service: 04/23/22 Chief Complaint: Non healing right leg ulcer History of Wound: Patient is 71 year old male who has had a non healing wound on his right anterior leg. He has had this ulcer for approximately 9 months. He has been cleaning it daily with hydrogen peroxide and then placing antibiotic ointment. He has issues with bilateral lower extremity edema. He states he wears compression socks and an MATT wrap to help his chronic edema. He does sleep in a recliner. He has a history of spinal stenosis with surgeries 12/05, 10/08, and 02/09 and hypothyroidism and polyneuropathy from the back pain, and also has lower extremity leg weakness from his back pain. Obtained a wound culture today, 03/26/22. Wound care - Jayna covered with superabsorber/ABD. Wear compression stockings with and MATT wrap over the the right compression stocking. Today he denies fever, chills, nausea and vomiting. He states he has a good appetite. Progress of Wound: Right lateral leg ulcer and right anterior leg ulcer are improving in size, they have a beefy pink base. Edema is also improving Objective Data Objective Data Vital Signs: Vital Signs Temp Pulse Resp BP O2 Del Method 97 F L 79 18 144/75 H Room Air 04/23/22 13:23 04/23/22 13:23 04/23/22 13:23 04/23/22 13:23 04/23/22 13:23 Oxygen Delivery Method Room Air Charges/Coding Procedures Integumentary 111xxx-113xx: 89666 Ani subq tissue 20 sq cm/< Physical Exam Const alert and oriented x3 General Appearance: cooperative HEENT normocephalic Neck full ROM Resp normal respiratory effort Effort and Inspection: able to speak in complete sentences Cardio regular rate Extremity normal capillary refill Extremity Narrative: Bilateral lower extremity edema which is worse on the the right than the left. Right has +2 pitting edema, which is an improvement compared to last week. Skin Wound Narrative: Right anterior leg ulcer and the right lateral leg ulcers are smaller in size with pink bases. Neuro oriented x3 and moves all extremities Psych mental status grossly normal Debridement Note Debridement Note Wound debrided: anterior leg ulcer Laterality: Right Type of Debridement: Excisional debridement Anesthesia Used: 5% Lidocaine Gel Depth: Down to and including healthy tissue and in the subcutaneous layer Percentage of wound debrided: 100 Instrument Used: 5mm curette Tissue Removed: Devitalized tissue and slough Severity: Fat Layer Exposed Amount of bleeding with debridement: Mild Bleeding Controlled with: Pressure and Compression and gauze Patient tolerated procedure: Patient tolerated procedure well Post-Debridement Measurements and Additional Note: Post-Debridement Measurements/Treatment - Nurse 1 - General Ulcer Assessment Start: 04/23/22 13:23 Freq: Status: Active Protocol: GREGORY Activity Type Activity Date Activity User E-sign Co-sign Detail Recorded Client Recorded Date Recorded By Document 04/23/22 13:23 CA [id number] 04/23/22 13:31 CA 04/23/22 13:23 - Today's Visit Information Type of service 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 ) Arrival Mode Walker, Wheelchair Accompanied by Patient Identification Verified (Name & Yes ) Vital Signs Temperature (97.8 F-99.1 F) 97 F L Temperature Source Temporal Pulse Rate (60-100) 79 Pulse Location Monitor Respiratory Rate (12-18) 18 Respiratory rate source Observation Oxygen Delivery Method Room Air Blood Pressure (90/60-120/80) 144/75 H Blood Pressure Mean (mm Hg) 98 Source Monitor Position Sitting Blood Pressure Location Right Arm History Since Last Visit- (Skip if this is Patient's initial visit) Has dressing in place as prescribed Yes Has compression in place as prescribed Yes Has offloadiing in place as prescribed Yes Experienced any changes in pain level or Yes management Left Footwear Regular Shoe Right Footwear Regular Shoe Pain Scale: 0-10 Numeric Is Patient Pain Free? Yes [facility] Nurse 1 - General Ulcer Measurement Start: 04/23/22 13:23 Freq: Status: Active Protocol: Activity Type Activity Date Activity User E-sign Co-sign Detail Recorded Client Recorded Date Recorded By Document 04/23/22 13:23 CA [id number] 04/23/22 13:31 CA 04/23/22 13:23 Wound Center Nurse 1 #2 RIGHT LATERAL GALLEGOS -Current Size (cm) - Length 0.5 -Current Size (cm) - Width 0.5 -Current Size (cm) - Depth 0.1 -Total Square Cm 0.25 -Exudate Amt Small -Exudate Type Serosanguineous -Wound Margin Flat & Intact -Granulation Amt Large (67-100%) -Granulation Quality Red -Texture (Taylor-wound Skin Appearance) Assessed -Moisture (Taylor-wound Skin Appearance) Assessed -Color (Taylor-wound Skin Appearance) Assessed, Hemosiderin Staining -Temperature (Taylor-wound Skin No Abnormality Appearance) (Pt Warm) -Tenderness on Palpation (Taylor-wound No Skin Appearance) -Ulcer Cleansing Rinsed/ Irrigated with Saline -Foul Odor after Cleansing No -Anesthetic Used 4% Lidocaine Solution #1 Right Gallegos -Current Size (cm) - Length 3.5 -Current Size (cm) - Width 2.5 -Current Size (cm) - Depth 0.1 -Total Square Cm 8.75 -Exudate Amt Small -Exudate Type Serosanguineous -Wound Margin Flat & Intact -Granulation Amt Large (67-100%) -Granulation Quality Red -Necrosis Amt None Present (0 %) -Texture (Taylor-wound Skin Appearance) Assessed -Moisture (Taylor-wound Skin Appearance) Assessed -Color (Taylor-wound Skin Appearance) Assessed, Hemosiderin Staining -Temperature (Taylor-wound Skin No Abnormality Appearance) (Pt Warm) -Tenderness on Palpation (Taylor-wound No Skin Appearance) -Ulcer Cleansing Rinsed/ Irrigated with Saline -Foul Odor after Cleansing No -Anesthetic Used 4% Lidocaine Solution Right Calf (cm) 40 Right Ankle (cm) 24 WC - Nurse 2 - General Ulcer CM Notes Start: 04/23/22 13:23 Freq: Status: Active Protocol: Activity Type Activity Date Activity User E-sign Co-sign Detail Recorded Client Recorded Date Recorded By Document 04/23/22 14:11 MW [id number] 04/23/22 14:17 MW 04/23/22 14:11 Wound Center Nurse 2 #2 RIGHT LATERAL GALLEGOS -Time 14:11 -Correct Patient Yes -Correct Side, Site, Position Yes -Correct Procedure Yes -Procedure Performed Yes -Type of Procedure Debridement -Clinical Debridement Subcutaneous -Tissue Removed Subcutaneous -Post Debridement (cm) - Length 0.6 -Post Debridement (cm) - Width 0.6 -Post Debridement (cm) - Depth 0.1 -Total Square (Post) (cm) 0.36 -Area of Debridement (cm) - Length 0.6 -Area of Debridement (cm) - Width 0.6 -Total Square (Area) (cm) 0.36 -Tunneling No -Undermining/Tunneling No -Circular Undermining No -Wound/Ulcer Outcome Not Healed -Ulcer Cleansing Rinsed/ Irrigated with Saline -Foul Odor after Cleansing No -Bioengineered Tissue No -Bleeding Controlled with Pressure -Treatment Response Procedure Tolerated Well -Offloading No -Debridement - Subq, 1st 20sq cm Yes #1 Right Gallegos -Time 14:12 -Correct Patient Yes -Correct Side, Site, Position Yes -Correct Procedure Yes -Procedure Performed Yes -Type of Procedure Debridement -Clinical Debridement Subcutaneous -Tissue Removed Subcutaneous -Post Debridement (cm) - Length 3.5 -Post Debridement (cm) - Width 2.6 -Post Debridement (cm) - Depth 0.1 -Total Square (Post) (cm) 9.10 -Area of Debridement (cm) - Length 3.5 -Area of Debridement (cm) - Width 2.6 -Total Square (Area) (cm) 9.10 -Tunneling No -Undermining/Tunneling No -Circular Undermining No -Wound/Ulcer Outcome Not Healed -Ulcer Cleansing Rinsed/ Irrigated with Saline -Foul Odor after Cleansing No -Bioengineered Tissue No -Bleeding Controlled with Pressure -Treatment Response Procedure Tolerated Well -Offloading No -Debridement - Subq, 1st 20sq cm No Pain Scale: 0-10 Numeric Is Patient Pain Free? Yes Additional Wound Wound debrided: lateral leg ulcer Laterality: Right Type of Debridement: Excisional debridement Anesthesia Used: 5% Lidocaine Gel Depth: Down to and including healthy tissue and in the subcutaneous layer Percentage of wound debrided: 100 Instrument Used: 3mm curette Tissue Removed: Devitalized tissue and slough Severity: Fat Layer Exposed Amount of bleeding with debridement: Mild Bleeding Controlled with: Pressure and Compression and gauze Patient tolerated procedure: Patient tolerated procedure well Assessment/Plan Assessment/Plan (1) Ulcer of right lower extremity with fat layer exposed: CODE(S): L97.912 - Non-pressure chronic ulcer of unspecified part of right lower leg with fat layer exposed (2) Edema of both lower extremities: CODE(S): R60.0 - Localized edema (3) Polyneuropathy: CODE(S): G62.9 - Polyneuropathy, unspecified PLAN: Plan Patient was evaluated at the wound healing center and a subcutaneous debridement was performed as documented. Wound care - Wash ulcer with soap and water daily and pat dry. Place Jayna to the ulcer and cover with dry gauze and kerlix daily. Compression - Continue compression socks with MATT wraps as previously have been applying, on the right leg place MATT wrap over the compression stocking. Wound culture obtained on 03/26/22, which was positive for Staphylococcus aureus.? He completed Doxycycline. Vascular studies scheduled for 05/13/22. Follow up on week.
[2022-05-07 13:53] VITALS: BP 131/75; PULSE 87; TEMP 36.1
--- NOTE | 2022-05-07 14:25 | PN.PCM_ITS ---
History of Present Illness Date of Service: 05/07/22 Chief Complaint: Non healing right leg ulcer History of Wound: Patient is 71 year old male who has had a non healing wound on his right anterior leg. He has had this ulcer for approximately 9 months. He has been cleaning it daily with hydrogen peroxide and then placing antibiotic ointment. He has issues with bilateral lower extremity edema. He states he wears compression socks and an MATT wrap to help his chronic edema. He does sleep in a recliner. He has a history of spinal stenosis with surgeries 12/05, 10/08, and 02/09 and hypothyroidism and polyneuropathy from the back pain, and also has lower extremity leg weakness from his back pain. Obtained a wound culture today, 03/26/22. Wound care - Jayna covered with superabsorber/ABD. Wear compression stockings with and MATT wrap over the the right compression stocking. Today he denies fever, chills, nausea and vomiting. He states he has a good appetite. Progress of Wound: Right lateral leg ulcer is healed. Right anterior leg ulcer is smaller in size, it have a beefy pink base. Edema is also improving with compression. Objective Data Objective Data Vital Signs: Vital Signs Temp Pulse Resp BP O2 Del Method 97.0 F L 87 18 131/75 H Room Air 05/07/22 13:53 05/07/22 13:53 04/23/22 13:23 05/07/22 13:53 04/23/22 13:23 Oxygen Delivery Method Room Air Charges/Coding Procedures Integumentary 111xxx-113xx: 99272 Ani subq tissue 20 sq cm/< Physical Exam Const alert and oriented x3 General Appearance: cooperative HEENT normocephalic Neck full ROM Resp normal respiratory effort Effort and Inspection: able to speak in complete sentences Cardio regular rate Extremity normal capillary refill Extremity Narrative: Bilateral lower extremity edema which is worse on the the right than the left. Right has +2 pitting edema, which is an improvement compared to last week. Skin Wound Narrative: Right anterior leg ulcer and the right lateral leg ulcers are smaller in size with pink bases. Neuro oriented x3 and moves all extremities Psych mental status grossly normal Debridement Note Debridement Note Wound debrided: anterior leg ulcer Laterality: Right Type of Debridement: Excisional debridement Anesthesia Used: 5% Lidocaine Gel Depth: Down to and including healthy tissue and in the subcutaneous layer Percentage of wound debrided: 100 Instrument Used: 5mm curette Tissue Removed: Devitalized tissue and slough Severity: Fat Layer Exposed Amount of bleeding with debridement: Mild Bleeding Controlled with: Pressure and Compression and gauze Patient tolerated procedure: Patient tolerated procedure well Post-Debridement Measurements and Additional Note: Post-Debridement Measurements/Treatment LUIZ [facility] Nurse 1 - General Ulcer Assessment Start: 04/23/22 13:23 Freq: Status: Active Protocol: GREGORY Activity Type Activity Date Activity User E-sign Co-sign Detail Recorded Client Recorded Date Recorded By Document 04/23/22 13:23 MT [id number] 04/23/22 13:31 MT Document 05/07/22 13:53 KR [id number] 05/07/22 13:59 KR 04/23/22 05/07/22 13:23 13:53 LUIZ - Today's Visit Information Type of service Follow-up Visit 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/WIND POWER PROJECT MANAGER ) ) Arrival Mode Walker, Ambulatory Wheelchair Accompanied by Patient Identification Verified (Name & Yes Yes ) Vital Signs Temperature (97.8 F-99.1 F) 97 F L 97.0 F L Temperature Source Temporal Temporal Pulse Rate (60-100) 79 87 Pulse Location Monitor Monitor Respiratory Rate (12-18) 18 Respiratory rate source Observation Oxygen Delivery Method Room Air Blood Pressure (90/60-120/80) 144/75 H 131/75 H Blood Pressure Mean (mm Hg) 98 93 Source Monitor Monitor Position Sitting Sitting Blood Pressure Location Right Arm Right Arm History Since Last Visit- (Skip if this is Patient's initial visit) Have you changed medications since your No last visit? Any new allergies or adverse reactions No Had a fall/change in ADL's that may No increase risk of falls Signs or symptoms of abuse and/or No neglect since last visit Have you been in the hospital since your No last visit? Has dressing in place as prescribed Yes Yes Has compression in place as prescribed Yes Yes Has offloadiing in place as prescribed Yes N/A Experienced any changes in pain level or Yes No management Left Footwear Regular Shoe Regular Shoe Right Footwear Regular Shoe Regular Shoe Pain Scale: 0-10 Numeric Is Patient Pain Free? Yes Yes LUIZ [facility] Nurse 1 - General Ulcer Measurement Start: 04/23/22 13:23 Freq: Status: Active Protocol: Activity Type Activity Date Activity User E-sign Co-sign Detail Recorded Client Recorded Date Recorded By Document 04/23/22 13:23 MT [id number] 04/23/22 13:31 MT Document 05/07/22 13:53 KR [id number] 05/07/22 13:59 KR 04/23/22 05/07/22 13:23 13:53 Wound Center Nurse 1 #2 RIGHT LATERAL GALLEGOS -Current Size (cm) - Length 0.5 0.1 -Current Size (cm) - Width 0.5 0.1 -Current Size (cm) - Depth 0.1 0.1 -Total Square Cm 0.25 0.01 -Exudate Amt Small None Present -Exudate Type Serosanguineous -Wound Margin Flat & Intact Distinct, Outline Attached -Granulation Amt Large (67-100%) None Present (0 %) -Granulation Quality Red -Necrosis Amt None Present (0 %) -Texture (Taylor-wound Skin Appearance) Assessed Assessed, Scarring -Moisture (Taylor-wound Skin Appearance) Assessed Assessed,Dry/ Scaly -Color (Taylor-wound Skin Appearance) Assessed, No Abnormality, Hemosiderin Assessed Staining -Temperature (Taylor-wound Skin No Abnormality No Abnormality Appearance) (Pt Warm) (Pt Warm) -Tenderness on Palpation (Taylor-wound No No Skin Appearance) -Ulcer Cleansing Rinsed/ Rinsed/ Irrigated with Irrigated with Saline Saline -Foul Odor after Cleansing No No -Anesthetic Used 4% Lidocaine 5% Lidocaine Solution Gel #1 Right Gallegos -Current Size (cm) - Length 3.5 2.8 -Current Size (cm) - Width 2.5 1 -Current Size (cm) - Depth 0.1 1 -Total Square Cm 8.75 2.8 -Exudate Amt Small Medium -Exudate Type Serosanguineous Serosanguineous -Wound Margin Flat & Intact Distinct, Outline Attached -Granulation Amt Large (67-100%) Large (67-100%) -Granulation Quality Red Red -Necrosis Amt None Present (0 None Present (0 %) %) -Texture (Taylor-wound Skin Appearance) Assessed Assessed, Scarring -Moisture (Taylor-wound Skin Appearance) Assessed No Abnormality, Assessed -Color (Taylor-wound Skin Appearance) Assessed, No Abnormality, Hemosiderin Assessed Staining -Temperature (Taylor-wound Skin No Abnormality No Abnormality Appearance) (Pt Warm) (Pt Warm) -Tenderness on Palpation (Taylor-wound No No Skin Appearance) -Ulcer Cleansing Rinsed/ Rinsed/ Irrigated with Irrigated with Saline Saline -Foul Odor after Cleansing No No -Anesthetic Used 4% Lidocaine 5% Lidocaine Solution Gel Right Calf (cm) 40 36 Right Ankle (cm) 24 24.8 WC - Nurse 2 - General Ulcer CM Notes Start: 04/23/22 13:23 Freq: Status: Active Protocol: Activity Type Activity Date Activity User E-sign Co-sign Detail Recorded Client Recorded Date Recorded By Document 04/23/22 14:11 MW [id number] 04/23/22 14:17 MW Document 05/07/22 14:16 MW [id number] 05/07/22 14:21 MW 04/23/22 05/07/22 14:11 14:16 Wound Center Nurse 2 #2 RIGHT LATERAL GALLEGOS -Time 14:11 14:18 -Correct Patient Yes Yes -Correct Side, Site, Position Yes Yes -Correct Procedure Yes Yes -Procedure Performed Yes No -Type of Procedure Debridement -Clinical Debridement Subcutaneous -Tissue Removed Subcutaneous -Post Debridement (cm) - Length 0.6 0 -Post Debridement (cm) - Width 0.6 0 -Post Debridement (cm) - Depth 0.1 0 -Total Square (Post) (cm) 0.36 0 -Area of Debridement (cm) - Length 0.6 -Area of Debridement (cm) - Width 0.6 -Total Square (Area) (cm) 0.36 -Tunneling No -Undermining/Tunneling No -Circular Undermining No -Wound/Ulcer Outcome Not Healed Healed- Epithelialized -Ulcer Cleansing Rinsed/ Irrigated with Saline -Foul Odor after Cleansing No -Bioengineered Tissue No -Bleeding Controlled with Pressure -Treatment Response Procedure Tolerated Well -Offloading No -Debridement - Subq, 1st 20sq cm Yes #1 Right Gallegos -Time 14:12 14:18 -Correct Patient Yes Yes -Correct Side, Site, Position Yes Yes -Correct Procedure Yes Yes -Procedure Performed Yes Yes -Type of Procedure Debridement Debridement -Clinical Debridement Subcutaneous Subcutaneous -Tissue Removed Subcutaneous Subcutaneous -Post Debridement (cm) - Length 3.5 3.2 -Post Debridement (cm) - Width 2.6 2.5 -Post Debridement (cm) - Depth 0.1 0.1 -Total Square (Post) (cm) 9.10 8.00 -Area of Debridement (cm) - Length 3.5 3.2 -Area of Debridement (cm) - Width 2.6 2.5 -Total Square (Area) (cm) 9.10 8.00 -Tunneling No No -Undermining/Tunneling No No -Circular Undermining No No -Wound/Ulcer Outcome Not Healed Not Healed -Ulcer Cleansing Rinsed/ Rinsed/ Irrigated with Irrigated with Saline Saline -Foul Odor after Cleansing No No -Bioengineered Tissue No No -Bleeding Controlled with Pressure Pressure -Treatment Response Procedure Procedure Tolerated Well Tolerated Well -Offloading No No -Debridement - Subq, 1st 20sq cm No Yes Pain Scale: 0-10 Numeric Is Patient Pain Free? Yes Yes Assessment/Plan Assessment/Plan (1) Ulcer of right lower extremity with fat layer exposed: CODE(S): L97.912 - Non-pressure chronic ulcer of unspecified part of right lower leg with fat layer exposed (2) Edema of both lower extremities: CODE(S): R60.0 - Localized edema (3) Polyneuropathy: CODE(S): G62.9 - Polyneuropathy, unspecified PLAN: Plan Patient was evaluated at the wound healing center and a subcutaneous debridement was performed as documented. Wound care - Wash ulcer with soap and water daily and pat dry. Place Jayna to the ulcer and cover with dry gauze and kerlix daily. Compression - Continue compression socks with MATT wraps as previously have been applying, on the right leg place MATT wrap over the compression stocking. Wound culture obtained on 03/26/22, which was positive for Staphylococcus aureus.? He completed Doxycycline. Vascular studies scheduled for 05/13/22. Follow up on week.
--- NOTE | 2022-05-13 12:33 | ART_ITS ---
Reason For Study: Edema Procedure A bilateral lower extremity continuous wave Doppler with analog waveform analysis,segmental pressures,and ankle brachial indexes without exercise. Left Segmental Pressures Left brachial= 132mmHg. Left posterior tibial artery = 194mmHg. Left dorsalis pedis artery = 170mmHg. Left digit = 156 mmHg. Right Segmental Pressures Right brachial= 133mmHg. Right posterior tibial artery = 197mmHg. Right dorsalis pedis artery = 165mmHg. Right digit = 129 mmHg. Indices The right ankle brachial index by the posterior tibial artery is 1.48. The right ankle brachial index by the dorsalis pedis is 1.24. The right digital-brachial index is 0.97. The left ankle brachial index by the posterior tibial artery is 1.46. The left ankle brachial index by the dorsalis pedis is 1.28. The left digital-brachial index is 1.17. VL/Lower Ext Art Exam w/o Exercis Interpretation Summary Right SINDY 1.48, normal. Doppler/PVR waveforms of the right leg normal at rest. Left SINDY 1.46, normal. Doppler/PVR waveforms of the left leg normal at rest. Ordering Physician: Adele Stanford Referring Physician: Channing Clement Performed By: Mai Baptiste RDCS/RVT
--- NOTE | 2022-05-13 12:33 | VDLE_ITS ---
Reason For Study: Edema RIGHT LEFT CFV is compressible, spontaneous, phasic, CFV is compressible, spontaneous, phasic, competent and demonstrates normal competent, and demonstrates normal augmentation. augmentation. FV is compressible, spontaneous, phasic, FV is compressible, spontaneous, phasic, competent and demonstrates normal competent and demonstrates normal augmentation. augmentation. POP V is compressible, spontaneous, phasic, POP V is compressible, spontaneous, phasic, competent and demonstrates normal competent and demonstrates normal augmentation. augmentation. T/P Trunk is compressible. T/P Trunk is compressible. PTV is compressible. PTV is compressible. RT PerV is compressible. LT PerV is compressible. SFJ is competent and measures 0.55cm x 0.53 SFJ is INCOMPETENT and measures 0.65cmx 0.65 cm. cm. GSV proximal thigh measures 0.46cm x 0.48 cm. GSV proximal thigh measures 0.48cm x 0.47 cm. GSV at knee measures 0.45cm x 0.42 cm. GSV at knee measures 0.42cm x 0.41 cm. GSV above knee is competent. GSV INCOMPETENT throughout for greater than GSV below knee is INCOMPETENT for greater 0.5 seconds. than 0.5 seconds. SSV proximal calf is competent and measures SSV proximal calf is competent and measures 0.31cm x 0.31 cm. 0.23cm x 0.22 cm. Lt GSV is partially compressible with bright Rt T/P Trunk is partially compressible with intraluminal echoes consistent with chronic bright intraluminal echoes consistent with SVT chronic DVT Lt ASV prox calf is Incompetent. Rt ASV mid calf is Incompetent. Procedure This is a venous duplex using B-mode, color flow and spectral Doppler. Exam performed in department. A preliminary report was called and/or faxed to [facility]. VL/Venous Duplex US - Ronnie Extrem Interpretation Summary Chronic deep vein thrombosis is noted in the right tibio-peroneal trunk. Chronic superficial vein thrombosis is noted in the left greater saphenous vein Deep veins of the left lower extremity are patent and compressible segmentally. There is no evidence of left lower extremity deep vein thrombosis. The right greater saphenous vein demonstrates valvular incompetence below the k nee. The right accessory saphenous vein demonstrates valvular incompetence The left saphenofemoral junction, greater saphenous vein, and accessory sapheno us vein demonstrate valvular incompetence Ordering Physician: Adele Stanford Referring Physician: Channing Clement Performed By: Mai Baptiste, RAMON, RVT
[2022-05-13 14:44] VITALS: BP 141/81; PULSE 91; RESP 16; TEMP 36.9
--- NOTE | 2022-05-13 15:22 | PCM.WC.PN ---
History of Present Illness Date of Service: 05/13/22 Chief Complaint: Non healing right leg ulcer History of Wound: Patient is 71 year old male who has had a non healing wound on his right anterior leg. He has had this ulcer for approximately 9 months. He has been cleaning it daily with hydrogen peroxide and then placing antibiotic ointment. He has issues with bilateral lower extremity edema. He states he wears compression socks and an KRISH wrap to help his chronic edema. He does sleep in a recliner. He has a history of spinal stenosis with surgeries 12/05, 10/08, and 02/09 and hypothyroidism and polyneuropathy from the back pain, and also has lower extremity leg weakness from his back pain. Obtained a wound culture on 03/26/22 which was positive for Staphylococcus aureus and he was treated Doxycycline. Venous studies obtained 05/13/22 which showed Chronic deep vein thrombosis is noted in the right tibio-peroneal trunk. Chronic superficial vein thrombosis is noted in the left greater saphenous vein. The right greater saphenous vein demonstrates valvular incompetence below the knee. The right accessory saphenous vein demonstrates valvular incompetence. The left saphenofemoral junction, greater saphenous vein, and accessory saphenous vein demonstrate valvular incompetence. Arterial studies obtained on 05/13/22 show Right SINDY 1.48 and Left SINDY 1.46 with Dopppler/PVR waveforms normal at rest bilaterally. Wound care - Jayan covered with Mantador SAP dressing. Wear compression stockings with and KRISH wrap over the the right compression stocking. Today he denies fever, chills, nausea and vomiting. He states he has a good appetite. Progress of Wound: Right lateral leg ulcer is healed. Right anterior leg ulcer is smaller in size, it have a beefy pink base. Edema is also improving with compression. Objective Data Objective Data Vital Signs: Vital Signs Temp Pulse Resp BP O2 Del Method 98.5 F 91 16 141/81 H Room Air 05/13/22 14:44 05/13/22 14:44 05/13/22 14:44 05/13/22 14:44 05/13/22 14:44 Oxygen Delivery Method Room Air Charges/Coding Procedures Integumentary 111xxx-113xx: [id number] Ani subq tissue 20 sq cm/< Physical Exam Const alert and oriented x3 General Appearance: cooperative HEENT normocephalic Neck full ROM Resp normal respiratory effort Effort and Inspection: able to speak in complete sentences Cardio regular rate Extremity normal capillary refill Extremity Narrative: Bilateral lower extremity edema is improving. +1 pitting edema bilaterally. Skin Wound Narrative: Right anterior leg ulcer is smaller in size with pink base. Neuro oriented x3 and moves all extremities Psych mental status grossly normal Debridement Note Debridement Note Wound debrided: anterior leg ulcer Laterality: Right Type of Debridement: Excisional debridement Anesthesia Used: 5% Lidocaine Gel Depth: Down to and including healthy tissue and in the subcutaneous layer Percentage of wound debrided: 100 Instrument Used: 3mm curette Tissue Removed: Devitalized tissue and slough Severity: Fat Layer Exposed Amount of bleeding with debridement: Mild Bleeding Controlled with: Pressure and Compression and gauze Patient tolerated procedure: Patient tolerated procedure well Post-Debridement Measurements and Additional Note: Post-Debridement Measurements/Treatment - Nurse 1 - General Ulcer Assessment Start: 04/23/22 13:23 Freq: Status: Active Protocol: GREGORY Activity Type Activity Date Activity User E-sign Co-sign Detail Recorded Client Recorded Date Recorded By Document 04/23/22 13:23 VT [id number] 04/23/22 13:31 VT Document 05/07/22 13:53 [id number] 05/07/22 13:59 KR Document 05/13/22 14:44 [facility] [id number] 05/13/22 14:55 [facility] 04/23/22 05/07/22 05/13/22 13:23 13:53 14:44 - Today's Visit Information Type of service Follow-up Visit Follow-up Visit Follow-up Visit (Physician/RETAIL [employer]AD (Physician/RETAIL COVERAGE [employer]CH[employer]IS[employer] LEAD (Physician/RETAIL C[employer]AGE [employer] LEAD ) ) ) Arrival Mode Walker, Ambulatory Wheelchair Wheelchair Transfer Assistance None Transfer Assist (Other) 2 Accompanied by Patient Identification Verified (Name & Yes Yes Yes ) Patient Requires Transmission-Based No Precautions Height and Weight Weight Measurement Method Estimated by Patient Vital Signs Temperature (97.8 F-99.1 F) 97 F L 97.0 F L 98.5 F Temperature Source Temporal Temporal Temporal Pulse Rate (60-100) 79 87 91 Pulse Location Monitor Monitor Monitor Respiratory Rate (12-18) 18 16 Respiratory rate source Observation Observation Oxygen Delivery Method Room Air Room Air Blood Pressure (90/60-120/80) 144/75 H 131/75 H 141/81 H Blood Pressure Mean (mm Hg) 98 93 101 Source Monitor Monitor Monitor Position Sitting Sitting Sitting Blood Pressure Location Right Arm Right Arm Right Forearm History Since Last Visit- (Skip if this is Patient's initial visit) Have you changed medications since your No No last visit? Any new allergies or adverse reactions No No Had a fall/change in ADL's that may No No increase risk of falls Signs or symptoms of abuse and/or No No neglect since last visit Have you been in the hospital since your No No last visit? Has dressing in place as prescribed Yes Yes Yes Has compression in place as prescribed Yes Yes No Has offloadiing in place as prescribed Yes N/A N/A Experienced any changes in pain level or Yes No No management Left Footwear Regular Shoe Regular Shoe Custom Shoe Right Footwear Regular Shoe Regular Shoe Custom Shoe Other Footwear DRSGS REMOVED IN VASCULAR PRIOR TO VISIT Pain Scale: 0-10 Numeric Is Patient Pain Free? Yes Yes Yes - Nurse 1 - General Ulcer Measurement Start: 04/23/22 13:23 Freq: Status: Active Protocol: Activity Type Activity Date Activity User E-sign Co-sign Detail Recorded Client Recorded Date Recorded By Document 04/23/22 13:23 VT [id number] 04/23/22 13:31 VT Document 05/07/22 13:53 [id number] 05/07/22 13:59 KR Document 05/13/22 14:44 [facility] [id number] 05/13/22 14:55 [facility] 04/23/22 05/07/22 05/13/22 13:23 13:53 14:44 Wound Center Nurse 1 #2 RIGHT LATERAL GALLEGOS -Current Size (cm) - Length 0.5 0.1 -Current Size (cm) - Width 0.5 0.1 -Current Size (cm) - Depth 0.1 0.1 -Total Square Cm 0.25 0.01 -Exudate Amt Small None Present -Exudate Type Serosanguineous -Wound Margin Flat & Intact Distinct, Outline Attached -Granulation Amt Large (67-100%) None Present (0 %) -Granulation Quality Red -Necrosis Amt None Present (0 %) -Texture (Taylor-wound Skin Appearance) Assessed Assessed, Scarring -Moisture (Taylor-wound Skin Appearance) Assessed Assessed,Dry/ Scaly -Color (Taylor-wound Skin Appearance) Assessed, No Abnormality, Hemosiderin Assessed Staining -Temperature (Taylor-wound Skin No Abnormality No Abnormality Appearance) (Pt Warm) (Pt Warm) -Tenderness on Palpation (Taylor-wound No No Skin Appearance) -Ulcer Cleansing Rinsed/ Rinsed/ Irrigated with Irrigated with Saline Saline -Foul Odor after Cleansing No No -Anesthetic Used 4% Lidocaine 5% Lidocaine Solution Gel #1 Right Gallegos -Combined with other wound No -Current Size (cm) - Length 3.5 2.8 3 -Current Size (cm) - Width 2.5 1 2.1 -Current Size (cm) - Depth 0.1 1 0.2 -Total Square Cm 8.75 2.8 6.3 -Date of Last Picture (Recall this 05/13/22 field) -Photo Taken Yes -Epithelialization None Present -Tunneling No -Undermining/Tunneling No -Circular Undermining No -Exudate Amt Small Medium Medium -Exudate Type Serosanguineous Serosanguineous Serosanguineous -Wound Margin Flat & Intact Distinct, Distinct, Outline Outline Attached Attached -Granulation Amt Large (67-100%) Large (67-100%) Medium (34-66%) -Granulation Quality Red Red Red -Slough/Fibrin Yes -Necrosis Amt None Present (0 None Present (0 Medium (34-66%) %) %) -Necrotic Tissue Type Adherent Slough -Texture (Taylor-wound Skin Appearance) Assessed Assessed, Assessed, Scarring Scarring -Moisture (Taylor-wound Skin Appearance) Assessed No Abnormality, Assessed Assessed -Color (Taylor-wound Skin Appearance) Assessed, No Abnormality, Assessed, Hemosiderin Assessed Hemosiderin Staining Staining -Temperature (Taylor-wound Skin No Abnormality No Abnormality No Abnormality Appearance) (Pt Warm) (Pt Warm) (Pt Warm) -Tenderness on Palpation (Taylor-wound No No No Skin Appearance) -Ulcer Cleansing Rinsed/ Rinsed/ Rinsed/ Irrigated with Irrigated with Irrigated with Saline Saline Saline -Foul Odor after Cleansing No No No -Anesthetic Used 4% Lidocaine 5% Lidocaine 5% Lidocaine Solution Gel Gel Lower Limb Edema Present Yes Right Calf (cm) 40 36 41.4 Right Ankle (cm) 24 24.8 24.5 WC - Nurse 2 - General Ulcer CM Notes Start: 04/23/22 13:23 Freq: Status: Active Protocol: Activity Type Activity Date Activity User E-sign Co-sign Detail Recorded Client Recorded Date Recorded By Document 04/23/22 14:11 [id number] 04/23/22 14:17 MW Document 05/07/22 14:16 [id number] 05/07/22 14:21 MW Document 05/13/22 15:09 [id number] 05/13/22 15:12 04/23/22 05/07/22 05/13/22 14:11 14:16 15:09 Wound Center Nurse 2 #2 RIGHT LATERAL GALLEGOS -Time 14:11 14:18 -Correct Patient Yes Yes -Correct Side, Site, Position Yes Yes -Correct Procedure Yes Yes -Procedure Performed Yes No -Type of Procedure Debridement -Clinical Debridement Subcutaneous -Tissue Removed Subcutaneous -Post Debridement (cm) - Length 0.6 0 -Post Debridement (cm) - Width 0.6 0 -Post Debridement (cm) - Depth 0.1 0 -Total Square (Post) (cm) 0.36 0 -Area of Debridement (cm) - Length 0.6 -Area of Debridement (cm) - Width 0.6 -Total Square (Area) (cm) 0.36 -Tunneling No -Undermining/Tunneling No -Circular Undermining No -Wound/Ulcer Outcome Not Healed Healed- Epithelialized -Ulcer Cleansing Rinsed/ Irrigated with Saline -Foul Odor after Cleansing No -Bioengineered Tissue No -Bleeding Controlled with Pressure -Treatment Response Procedure Tolerated Well -Offloading No -Debridement - Subq, 1st 20sq cm Yes #1 Right Gallegos -Time 14:12 14:18 15:11 -Correct Patient Yes Yes Yes -Correct Side, Site, Position Yes Yes Yes -Correct Procedure Yes Yes Yes -Procedure Performed Yes Yes Yes -Type of Procedure Debridement Debridement Debridement -Clinical Debridement Subcutaneous Subcutaneous Subcutaneous -Tissue Removed Subcutaneous Subcutaneous Subcutaneous -Post Debridement (cm) - Length 3.5 3.2 3.0 -Post Debridement (cm) - Width 2.6 2.5 2.3 -Post Debridement (cm) - Depth 0.1 0.1 0.1 -Total Square (Post) (cm) 9.10 8.00 6.90 -Area of Debridement (cm) - Length 3.5 3.2 3.0 -Area of Debridement (cm) - Width 2.6 2.5 2.3 -Total Square (Area) (cm) 9.10 8.00 6.90 -Tunneling No No No -Undermining/Tunneling No No No -Circular Undermining No No No -Wound/Ulcer Outcome Not Healed Not Healed Not Healed -Ulcer Cleansing Rinsed/ Rinsed/ Rinsed/ Irrigated with Irrigated with Irrigated with Saline Saline Saline -Foul Odor after Cleansing No No No -Bioengineered Tissue No No No -Bleeding Controlled with Pressure Pressure Pressure -Treatment Response Procedure Procedure Procedure Tolerated Well Tolerated Well Tolerated Well -Offloading No No No -Debridement - Subq, 1st 20sq cm No Yes Yes Pain Scale: 0-10 Numeric Is Patient Pain Free? Yes Yes Yes - Nurse 3 - General Ulcer D/C NN Start: 04/23/22 13:23 Freq: Status: Active Protocol: Activity Type Activity Date Activity User E-sign Co-sign Detail Recorded Client Recorded Date Recorded By Document 05/07/22 14:28 [facility] [id number] 05/07/22 14:29 [facility] Document 05/13/22 15:18 [facility] [id number] 05/13/22 15:19 [facility] 05/07/22 05/13/22 14:28 15:18 Wound Care Nurse 3 #1 Right Gallegos -Ulcer Cleansing Rinsed/ Rinsed/ Irrigated with Irrigated with Saline Saline -Foul Odor after Cleansing No No -Primary Dressing Applied Optilok 6.5x10, Promogran Promogran Jayna Matter Jayna Matter -Other Dressing EXCEL SAP BORDER SAMPLE -Primary Dressing Covered/Secured with Dry Gauze & Roll Gauze, Secured with Tape -Other Covering drsg per [place] lawn service worker DRSG PER MW RN -Optilok 6.5x10 1 -Promogran Jayna Matter 1 1 Right -Compression Wrap Krish Wrap Krish Wrap -Other pts own PLUS PTS OWN compression COMPRESSION stocking STOCKING, PER applied MW RN Treatment Response Procedure Tolerated Well Pain Scale: 0-10 Numeric Is Patient Pain Free? Yes Yes WC - Visit Discharge Discharge Condition Stable Stable Ambulatory Status Wheelchair Wheelchair Transportation Private Auto Private Auto Accompanied by Assessment/Plan Assessment/Plan (1) Ulcer of right lower extremity with fat layer exposed: CODE(S): L97.912 - Non-pressure chronic ulcer of unspecified part of right lower leg with fat layer exposed (2) Edema of both lower extremities: CODE(S): R60.0 - Localized edema (3) Polyneuropathy: CODE(S): G62.9 - Polyneuropathy, unspecified PLAN: Plan Patient was evaluated at the wound healing center and a subcutaneous debridement was performed as documented. Wound care - Wash ulcer with soap and water daily and pat dry. Place Jayna to the ulcer and cover with dry gauze and kerlix daily. Compression - Continue compression socks with KRISH wraps as previously have been applying, on the right leg place KRISH wrap over the compression stocking. Wound culture obtained on 03/26/22, which was positive for Staphylococcus aureus.? He completed Doxycycline. Vascular studies obtained today, 05/13/22 results noted in HPI, will discuss further with patient next week. Follow up on week.
[2022-05-20 14:21] VITALS: BP 153/62; PULSE 49; TEMP 36.6
--- NOTE | 2022-05-21 09:30 | PCM.WC.PN ---
History of Present Illness Date of Service: 05/20/22 Chief Complaint: Non healing right leg ulcer History of Wound: Patient is 71 year old male who has had a non healing wound on his right anterior leg. He has had this ulcer for approximately 9 months. He has been cleaning it daily with hydrogen peroxide and then placing antibiotic ointment. He has issues with bilateral lower extremity edema. He states he wears compression socks and an KRISH wrap to help his chronic edema. He does sleep in a recliner. He has a history of spinal stenosis with surgeries 12/05, 10/08, and 02/09 and hypothyroidism and polyneuropathy from the back pain, and also has lower extremity leg weakness from his back pain. Obtained a wound culture on 03/26/22 which was positive for Staphylococcus aureus and he was treated Doxycycline. Venous studies obtained 05/13/22 which showed Chronic deep vein thrombosis is noted in the right tibio-peroneal trunk. Chronic superficial vein thrombosis is noted in the left greater saphenous vein. The right greater saphenous vein demonstrates valvular incompetence below the knee. The right accessory saphenous vein demonstrates valvular incompetence. The left saphenofemoral junction, greater saphenous vein, and accessory saphenous vein demonstrate valvular incompetence. Arterial studies obtained on 05/13/22 show Right SINDY 1.48 and Left SINDY 1.46 with Dopppler/PVR waveforms normal at rest bilaterally. Will refer him to Dr. Pang for further evaluation. Wound care - Jayna covered with Eagle SAP dressing. Wear compression stockings with and KRISH wrap over the the right compression stocking. Today he denies fever, chills, nausea and vomiting. He states he has a good appetite. Progress of Wound: Right anterior leg ulcer is smaller in size, it have a beefy pink base. He has a new wound on the right medial leg where his compression rubbed against his leg. It is very superficial. Edema is also improving with compression. Objective Data Objective Data Vital Signs: Vital Signs Temp Pulse Resp BP O2 Del Method 97.8 F 49 L 16 153/62 H Room Air 05/20/22 14:21 05/20/22 14:21 05/13/22 14:44 05/20/22 14:05/13/22 14:44 Oxygen Delivery Method Room Air Charges/Coding Procedures Integumentary 111xxx-113xx: 37210 Ani subq tissue 20 sq cm/< Physical Exam Const alert and oriented x3 General Appearance: cooperative HEENT normocephalic Neck full ROM Resp normal respiratory effort Effort and Inspection: able to speak in complete sentences Cardio regular rate Extremity normal capillary refill Extremity Narrative: Bilateral lower extremity edema is improving. +1 pitting edema bilaterally. Skin Wound Narrative: Right anterior leg ulcer is smaller in size, it have a beefy pink base. He has a new wound on the right medial leg where his compression rubbed against his leg. It is very superficial. Neuro oriented x3 and moves all extremities Psych mental status grossly normal Debridement Note Debridement Note Wound debrided: anterior leg ulcer Laterality: Right Type of Debridement: Excisional debridement Anesthesia Used: 5% Lidocaine Gel Depth: Down to and including healthy tissue and in the subcutaneous layer Percentage of wound debrided: 100 Instrument Used: 3mm curette Tissue Removed: Devitalized tissue and slough Severity: Fat Layer Exposed Amount of bleeding with debridement: Mild Bleeding Controlled with: Pressure and Compression and gauze Patient tolerated procedure: Patient tolerated procedure well Post-Debridement Measurements and Additional Note: Post-Debridement Measurements/Treatment - Nurse 1 - General Ulcer Assessment Start: 04/23/22 13:23 Freq: Status: Active Protocol: GREGORY Activity Type Activity Date Activity User E-sign Co-sign Detail Recorded Client Recorded Date Recorded By Document 04/23/22 13:23 NE [id number] 04/23/22 13:31 NE Document 05/07/22 13:53 KR [id number] 05/07/22 13:59 KR Document 05/13/22 14:44 [facility] [id number] 05/13/22 14:55 [facility] Document 05/20/22 14:21 AK [id number] 05/20/22 14:26 AK 04/23/22 05/07/22 05/13/22 13:23 13:53 14:44 - Today's Visit Information Type of service Follow-up Visit Follow-up Visit Follow-up Visit (Physician/MECHANICAL ARTIST (Physician/MECHANICAL ARTIST (Physician/MECHANICAL ARTIST ) ) ) Arrival Mode Walker, Ambulatory Wheelchair Wheelchair Transfer Assistance None Transfer Assist (Other) 2 Accompanied by Patient Identification Verified (Name & Yes Yes Yes ) Patient Requires Transmission-Based No Precautions Height and Weight Weight Measurement Method Estimated by Patient Vital Signs Temperature (97.8 F-99.1 F) 97 F L 97.0 F L 98.5 F Temperature Source Temporal Temporal Temporal Pulse Rate (60-100) 79 87 91 Pulse Location Monitor Monitor Monitor Respiratory Rate (12-18) 18 16 Respiratory rate source Observation Observation Oxygen Delivery Method Room Air Room Air Blood Pressure (90/60-120/80) 144/75 H 131/75 H 141/81 H Blood Pressure Mean (mm Hg) 98 93 101 Source Monitor Monitor Monitor Position Sitting Sitting Sitting Blood Pressure Location Right Arm Right Arm Right Forearm History Since Last Visit- (Skip if this is Patient's initial visit) Have you changed medications since your No No last visit? Any new allergies or adverse reactions No No Had a fall/change in ADL's that may No No increase risk of falls Signs or symptoms of abuse and/or No No neglect since last visit Have you been in the hospital since your No No last visit? Has dressing in place as prescribed Yes Yes Yes Has compression in place as prescribed Yes Yes No Has offloadiing in place as prescribed Yes N/A N/A Experienced any changes in pain level or Yes No No management Left Footwear Regular Shoe Regular Shoe Custom Shoe Right Footwear Regular Shoe Regular Shoe Custom Shoe Other Footwear DRSGS REMOVED IN VASCULAR PRIOR TO VISIT Pain Scale: 0-10 Numeric Is Patient Pain Free? Yes Yes Yes 05/20/22 14:21 WC - Today's Visit Information Type of service Follow-up Visit (Physician/MECHANICAL ARTIST ) Arrival Mode Walker, Wheelchair Transfer Assistance Transfer Assist (Other) 2 assist Accompanied by Patient Identification Verified (Name & Yes ) Patient Requires Transmission-Based No Precautions Height and Weight Weight Measurement Method Vital Signs Temperature (97.8 F-99.1 F) 97.8 F Temperature Source Temporal Pulse Rate (60-100) 49 L Pulse Location Monitor Respiratory Rate (12-18) Respiratory rate source Oxygen Delivery Method Blood Pressure (90/60-120/80) 153/62 H Blood Pressure Mean (mm Hg) 92 Source Monitor Position Blood Pressure Location History Since Last Visit- (Skip if this is Patient's initial visit) Have you changed medications since your No last visit? Any new allergies or adverse reactions No Had a fall/change in ADL's that may No increase risk of falls Signs or symptoms of abuse and/or No neglect since last visit Have you been in the hospital since your No last visit? Has dressing in place as prescribed Yes Has compression in place as prescribed Yes Has offloadiing in place as prescribed Yes Experienced any changes in pain level or No management Left Footwear Regular Shoe Right Footwear Regular Shoe Other Footwear Pain Scale: 0-10 Numeric Is Patient Pain Free? Yes WC - Nurse 1 - General Ulcer Measurement Start: 04/23/22 13:23 Freq: Status: Active Protocol: Activity Type Activity Date Activity User E-sign Co-sign Detail Recorded Client Recorded Date Recorded By Document 04/23/22 13:23 MT [id number] 04/23/22 13:31 MT Document 05/07/22 13:53 KR [id number] 05/07/22 13:59 KR Document 05/13/22 14:44 BM [id number] 05/13/22 14:55 BMF Document 05/20/22 14:21 AK [id number] 05/20/22 14:26 AK Document 05/20/22 14:32 AK [id number] 05/20/22 14:34 AK 04/23/22 05/07/22 05/13/22 13:23 13:53 14:44 Wound Center Nurse 1 #2 RIGHT medial GALLEGOS -Current Size (cm) - Length 0.5 0.1 -Current Size (cm) - Width 0.5 0.1 -Current Size (cm) - Depth 0.1 0.1 -Total Square Cm 0.25 0.01 -Photo Taken -Tunneling -Undermining/Tunneling -Circular Undermining -Change in Wound Grade/Stage -Exudate Amt Small None Present -Exudate Type Serosanguineous -Wound Margin Flat & Intact Distinct, Outline Attached -Granulation Amt Large (67-100%) None Present (0 %) -Granulation Quality Red -Slough/Fibrin -Necrosis Amt None Present (0 %) -Necrotic Tissue Type -Structure Exposed -Texture (Taylor-wound Skin Appearance) Assessed Assessed, Scarring -Moisture (Taylor-wound Skin Appearance) Assessed Assessed,Dry/ Scaly -Color (Taylor-wound Skin Appearance) Assessed, No Abnormality, Hemosiderin Assessed Staining -Temperature (Taylor-wound Skin No Abnormality No Abnormality Appearance) (Pt Warm) (Pt Warm) -Tenderness on Palpation (Taylor-wound No No Skin Appearance) -Ulcer Cleansing Rinsed/ Rinsed/ Irrigated with Irrigated with Saline Saline -Foul Odor after Cleansing No No -Anesthetic Used 4% Lidocaine 5% Lidocaine Solution Gel #1 Right Gal[place]os -Combined with other wound No -Current Size (cm) - Length 3.5 2.8 3 -Current Size (cm) - Width 2.5 1 2.1 -Current Size (cm) - Depth 0.1 1 0.2 -Total Square Cm 8.75 2.8 6.3 -Date of Last Picture (Recall this 05/13/22 field) -Photo Taken Yes -Epithelialization None Present -Tunneling No -Undermining/Tunneling No -Circular Undermining No -Change in Wound Grade/Stage -Exudate Amt Small Medium Medium -Exudate Type Serosanguineous Serosanguineous Serosanguineous -Wound Margin Flat & Intact Distinct, Distinct, Outline Outline Attached Attached -Granulation Amt Large (67-100%) Large (67-100%) Medium (34-66%) -Granulation Quality Red Red Red -Slough/Fibrin Yes -Necrosis Amt None Present (0 None Present (0 Medium (34-66%) %) %) -Necrotic Tissue Type Adherent Slough -Structure Exposed -Texture (Taylor-wound Skin Appearance) Assessed Assessed, Assessed, Scarring Scarring -Moisture (Taylor-wound Skin Appearance) Assessed No Abnormality, Assessed Assessed -Color (Taylor-wound Skin Appearance) Assessed, No Abnormality, Assessed, Hemosiderin Assessed Hemosiderin Staining Staining -Temperature (Taylor-wound Skin No Abnormality No Abnormality No Abnormality Appearance) (Pt Warm) (Pt Warm) (Pt Warm) -Tenderness on Palpation (Taylor-wound No No No Skin Appearance) -Ulcer Cleansing Rinsed/ Rinsed/ Rinsed/ Irrigated with Irrigated with Irrigated with Saline Saline Saline -Foul Odor after Cleansing No No No -Anesthetic Used 4% Lidocaine 5% Lidocaine 5% Lidocaine Solution Gel Gel Lower Limb Edema Present Yes Right Calf (cm) 40 36 41.4 Right Ankle (cm) 24 24.8 24.5 05/20/22 05/20/22 14:21 14:32 Wound Center Nurse 1 #2 RIGHT medial GALLEGOS -Current Size (cm) - Length 1 -Current Size (cm) - Width 0.5 -Current Size (cm) - Depth 0.1 -Total Square Cm 0.5 -Photo Taken No -Tunneling No -Undermining/Tunneling No -Circular Undermining No -Change in Wound Grade/Stage No -Exudate Amt Medium -Exudate Type Serosanguineous -Wound Margin Distinct, Outline Attached -Granulation Amt None Present (0 %) -Granulation Quality N/A -Slough/Fibrin Yes -Necrosis Amt Small (1-33%) -Necrotic Tissue Type Adherent Slough -Structure Exposed N/A -Texture (Taylor-wound Skin Appearance) No Abnormality, Assessed -Moisture (Taylor-wound Skin Appearance) No Abnormality, Assessed -Color (Taylor-wound Skin Appearance) No Abnormality, Assessed -Temperature (Taylor-wound Skin No Abnormality Appearance) (Pt Warm) -Tenderness on Palpation (Taylor-wound No Skin Appearance) -Ulcer Cleansing Rinsed/ Irrigated with Saline -Foul Odor after Cleansing No -Anesthetic Used 5% Lidocaine Gel #1 Right [place]os -Combined with other wound No -Current Size (cm) - Length 3 -Current Size (cm) - Width 2 -Current Size (cm) - Depth 0.1 -Total Square Cm 6 -Date of Last Picture (Recall this field) -Photo Taken No -Epithelialization -Tunneling No -Undermining/Tunneling No -Circular Undermining No -Change in Wound Grade/Stage No -Exudate Amt Medium -Exudate Type Serosanguineous -Wound Margin Distinct, Outline Attached -Granulation Amt Medium (34-66%) -Granulation Quality [place],Red -Slough/Fibrin Yes -Necrosis Amt Small (1-33%) -Necrotic Tissue Type Adherent Slough -Structure Exposed N/A -Texture (Taylor-wound Skin Appearance) No Abnormality, Assessed -Moisture (Taylor-wound Skin Appearance) No Abnormality, Assessed -Color (Taylor-wound Skin Appearance) No Abnormality, Assessed -Temperature (Taylor-wound Skin No Abnormality Appearance) (Pt Warm) -Tenderness on Palpation (Taylor-wound No Skin Appearance) -Ulcer Cleansing Rinsed/ Irrigated with Saline -Foul Odor after Cleansing No -Anesthetic Used 5% Lidocaine Gel Lower Limb Edema Present No Right Calf (cm) 42 Right Ankle (cm) 23 WC - Nurse 2 - General Ulcer CM Notes Start: 04/23/22 13:23 Freq: Status: Active Protocol: Activity Type Activity Date Activity User E-sign Co-sign Detail Recorded Client Recorded Date Recorded By Document 04/23/22 14:11 [id number] 04/23/22 14:17 MW Document 05/07/22 14:16 [id number] 05/07/22 14:21 MW Document 05/13/22 15:09 [id number] 05/13/22 15:12 Document 05/20/22 15:05 [id number] 05/20/22 15:09 04/23/22 05/07/22 05/13/22 14:11 14:16 15:09 Wound Center Nurse 2 #2 RIGHT medial GALLEGOS -Time 14:11 14:18 -Correct Patient Yes Yes -Correct Side, Site, Position Yes Yes -Correct Procedure Yes Yes -Procedure Performed Yes No -Type of Procedure Debridement -Clinical Debridement Subcutaneous -Tissue Removed Subcutaneous -Post Debridement (cm) - Length 0.6 0 -Post Debridement (cm) - Width 0.6 0 -Post Debridement (cm) - Depth 0.1 0 -Total Square (Post) (cm) 0.36 0 -Area of Debridement (cm) - Length 0.6 -Area of Debridement (cm) - Width 0.6 -Total Square (Area) (cm) 0.36 -Tunneling No -Undermining/Tunneling No -Circular Undermining No -Wound/Ulcer Outcome Not Healed Healed- Epithelialized -Ulcer Cleansing Rinsed/ Irrigated with Saline -Foul Odor after Cleansing No -Bioengineered Tissue No -Bleeding Controlled with Pressure -Treatment Response Procedure Tolerated Well -Offloading No -Debridement - Subq, 1st 20sq cm Yes #1 Right Gallegos -Time 14:12 14:18 15:11 -Correct Patient Yes Yes Yes -Correct Side, Site, Position Yes Yes Yes -Correct Procedure Yes Yes Yes -Procedure Performed Yes Yes Yes -Type of Procedure Debridement Debridement Debridement -Clinical Debridement Subcutaneous Subcutaneous Subcutaneous -Tissue Removed Subcutaneous Subcutaneous Subcutaneous -Post Debridement (cm) - Length 3.5 3.2 3.0 -Post Debridement (cm) - Width 2.6 2.5 2.3 -Post Debridement (cm) - Depth 0.1 0.1 0.1 -Total Square (Post) (cm) 9.10 8.00 6.90 -Area of Debridement (cm) - Length 3.5 3.2 3.0 -Area of Debridement (cm) - Width 2.6 2.5 2.3 -Total Square (Area) (cm) 9.10 8.00 6.90 -Tunneling No No No -Undermining/Tunneling No No No -Circular Undermining No No No -Wound/Ulcer Outcome Not Healed Not Healed Not Healed -Ulcer Cleansing Rinsed/ Rinsed/ Rinsed/ Irrigated with Irrigated with Irrigated with Saline Saline Saline -Foul Odor after Cleansing No No No -Bioengineered Tissue No No No -Bleeding Controlled with Pressure Pressure Pressure -Treatment Response Procedure Procedure Procedure Tolerated Well Tolerated Well Tolerated Well -Offloading No No No -Debridement - Subq, 1st 20sq cm No Yes Yes Pain Scale: 0-10 Numeric Is Patient Pain Free? Yes Yes Yes 05/20/22 15:05 Wound Center Nurse 2 #2 RIGHT medial GALLEGOS -Time 15:07 -Correct Patient Yes -Correct Side, Site, Position Yes -Correct Procedure Yes -Procedure Performed Yes -Type of Procedure Debridement -Clinical Debridement Subcutaneous -Tissue Removed Subcutaneous -Post Debridement (cm) - Length 2.2 -Post Debridement (cm) - Width 0.7 -Post Debridement (cm) - Depth 0.1 -Total Square (Post) (cm) 1.54 -Area of Debridement (cm) - Length 2.2 -Area of Debridement (cm) - Width 0.7 -Total Square (Area) (cm) 1.54 -Tunneling No -Undermining/Tunneling No -Circular Undermining No -Wound/Ulcer Outcome Not Healed -Ulcer Cleansing Rinsed/ Irrigated with Saline -Foul Odor after Cleansing No -Bioengineered Tissue No -Bleeding Controlled with Pressure -Treatment Response Procedure Tolerated Well -Offloading No -Debridement - Subq, 1st 20sq cm No #1 Right Gallegos -Time 15:08 -Correct Patient Yes -Correct Side, Site, Position Yes -Correct Procedure Yes -Procedure Performed Yes -Type of Procedure Debridement -Clinical Debridement Subcutaneous -Tissue Removed Subcutaneous -Post Debridement (cm) - Length 2.9 -Post Debridement (cm) - Width 2.0 -Post Debridement (cm) - Depth 0.1 -Total Square (Post) (cm) 5.80 -Area of Debridement (cm) - Length 2.9 -Area of Debridement (cm) - Width 2.0 -Total Square (Area) (cm) 5.80 -Tunneling No -Undermining/Tunneling No -Circular Undermining No -Wound/Ulcer Outcome Not Healed -Ulcer Cleansing Rinsed/ Irrigated with Saline -Foul Odor after Cleansing No -Bioengineered Tissue No -Bleeding Controlled with Pressure -Treatment Response Procedure Tolerated Well -Offloading No -Debridement - Subq, 1st 20sq cm Yes Pain Scale: 0-10 Numeric Is Patient Pain Free? Yes WC - Nurse 3 - General Ulcer D/C NN Start: 04/23/22 13:23 Freq: Status: Active Protocol: Activity Type Activity Date Activity User E-sign Co-sign Detail Recorded Client Recorded Date Recorded By Document 05/07/22 14:28 [facility] [id number] 05/07/22 14:29 [facility] Document 05/13/22 15:18 BMF [id number] 05/13/22 15:19 BM Document 05/20/22 15:25 DL [id number] 05/20/22 15:28 DL 05/07/22 05/13/22 05/20/22 14:28 15:18 15:25 Wound Care Nurse 3 #2 RIGHT medial GALLEGOS -Ulcer Cleansing Rinsed/ Irrigated with Saline -Foul Odor after Cleansing No -Primary Dressing Applied C Hydrogel ($) -Primary Dressing Covered/Secured with Dry Gauze & Roll Gauze, Secured with Tape #1 Right Gal[place] -Ulcer Cleansing Rinsed/ Rinsed/ Rinsed/ Irrigated with Irrigated with Irrigated with Saline Saline Saline -Foul Odor after Cleansing No No No -Primary Dressing Applied Optilok 6.5x10, Promogran Promogran Promogran Jayna Matter Jayna Matter Jayna Matter -Other Dressing EXCEL SAP BORDER SAMPLE -Primary Dressing Covered/Secured with Dry Gauze & Dry Gauze & Roll Gauze, Roll Gauze, Secured with Secured with Tape Tape -Other Covering drsg per [place] clinical operations consultant DRSG PER MW RN -Optilok 6.5x10 1 -Promogran Jayna Matter 1 1 1 Right -Compression Wrap Krish Wrap Krish Wrap Krish Wrap -Stockings Yes -Other pts own PLUS PTS OWN compression COMPRESSION stocking STOCKING, PER applied TK RN Treatment Response Procedure Procedure Tolerated Well Tolerated Well Pain Scale: 0-10 Numeric Is Patient Pain Free? Yes Yes Yes WC - Visit Discharge Discharge Condition Stable Stable Stable Ambulatory Status Wheelchair Wheelchair Ambulatory Transportation Private Auto Private Auto Private Auto Accompanied by Notes: Dressing applied per Lauri Kahn LPN today. Additional Wound Wound debrided: medial leg wound Laterality: Right Type of Debridement: Excisional debridement Anesthesia Used: 5% Lidocaine Gel Depth: Down to and including healthy tissue and in the subcutaneous layer Percentage of wound debrided: 100 Instrument Used: 3mm curette Tissue Removed: Devitalized tissue and slough Severity: Limited To Skin Breakdown Amount of bleeding with debridement: Mild Bleeding Controlled with: Compression and gauze Patient tolerated procedure: Patient tolerated procedure well Assessment/Plan Assessment/Plan (1) Ulcer of right lower extremity with fat layer exposed: CODE(S): L97.912 - Non-pressure chronic ulcer of unspecified part of right lower leg with fat layer exposed (2) Wound of right lower extremity: CODE(S): S81.801A - Unspecified open wound, right lower leg, initial encounter (3) Edema of both lower extremities: CODE(S): R60.0 - Localized edema (4) Polyneuropathy: CODE(S): G62.9 - Polyneuropathy, unspecified PLAN: Plan Patient was evaluated at the wound healing center and a subcutaneous debridement was performed as documented. Wound care - Wash ulcer with soap and water daily and pat dry. Place Jayna to the right anterior leg ulcer and cover with dry gauze and kerlix daily. To the right medial leg wound place collagen hydrogel covered with adaptic and topped with dry gauze daily. Compression - Continue compression socks with KRISH wraps as previously have been applying, on the right leg place KRISH wrap over the compression stocking. Wound culture obtained on 03/26/22, which was positive for Staphylococcus aureus.? He completed Doxycycline. Vascular studies obtained today, 05/13/22 results noted in HPI. Discussed results with patient and his . Will refer him to Dr. Pang for further evaluation. Follow up on week.
== END 2022-05-22 23:59 | disposition home or self-care (01) ==
LOC: WC 14:45
PROVIDERS: PCP Family Medicine; Referring Provider Nurse Practitioner Family; Visit Provider Nurse Practitioner Family
DX: L97.912 Non-pressure chronic ulcer of unspecified part of right lower leg with fat layer exposed (principal); I82.551 Chronic embolism and thrombosis of right peroneal vein; G62.9 Polyneuropathy, unspecified; R60.0 Localized edema; I82.811 Embolism and thrombosis of superficial veins of right lower extremity; R53.1 Weakness
CPT/HCPCS: 11042; 93923; 93970

== ENCOUNTER 2022-06-09 14:15 | Outpatient (RCR) | payer MEDICARE, SELFPAY ==
[2022-05-23 01:34] VITALS: BP 153/62; PULSE 49; RESP 16; TEMP 36.6
[2022-05-27 14:20] VITALS: BP 153/71; PULSE 88; TEMP 36.7
--- NOTE | 2022-05-27 14:40 | PCM.WC.PN ---
History of Present Illness Date of Service: 05/27/22 Chief Complaint: Non healing right leg ulcer History of Wound: Patient is 71 year old male who has had a non healing wound on his right anterior leg. He has had this ulcer for approximately 9 months. He has been cleaning it daily with hydrogen peroxide and then placing antibiotic ointment. He has issues with bilateral lower extremity edema. He states he wears compression socks and an MATT wrap to help his chronic edema. He does sleep in a recliner. He has a history of spinal stenosis with surgeries 12/05, 10/08, and 02/09 and hypothyroidism and polyneuropathy from the back pain, and also has lower extremity leg weakness from his back pain. Obtained a wound culture on 03/26/22 which was positive for Staphylococcus aureus and he was treated Doxycycline. Venous studies obtained 05/13/22 which showed Chronic deep vein thrombosis is noted in the right tibio-peroneal trunk. Chronic superficial vein thrombosis is noted in the left greater saphenous vein. The right greater saphenous vein demonstrates valvular incompetence below the knee. The right accessory saphenous vein demonstrates valvular incompetence. The left saphenofemoral junction, greater saphenous vein, and accessory saphenous vein demonstrate valvular incompetence. Arterial studies obtained on 05/13/22 show Right SINDY 1.48 and Left SINDY 1.46 with Dopppler/PVR waveforms normal at rest bilaterally. Will refer him to Dr. Pang for further evaluation. Wound care - Jayna covered with [place] SAP dressing. Wear compression stockings with and MATT wrap over the the right compression stocking. Today he denies fever, chills, nausea and vomiting. He states he has a good appetite. Progress of Wound: Right medial leg ulcer is smaller in size. Right anterior leg ulcer is healed. Objective Data Objective Data Vital Signs: Vital Signs Temp Pulse Resp BP 98.1 F 88 16 153/71 H 05/27/22 14:20 05/27/22 14:20 05/23/22 01:34 05/27/22 14:20 Charges/Coding Procedures Integumentary 111xxx-113xx: [id number] Ani subq tissue 20 sq cm/< Physical Exam Const alert and oriented x3 General Appearance: cooperative HEENT normocephalic Neck full ROM Resp normal respiratory effort Effort and Inspection: able to speak in complete sentences Cardio regular rate Extremity normal capillary refill Extremity Narrative: Bilateral lower extremity edema is improving. +1 pitting edema bilaterally. Skin Wound Narrative: Right anterior leg ulcer is healed. The right medial leg where his compression rubbed against his leg is smaller. Neuro oriented x3 and moves all extremities Psych mental status grossly normal Debridement Note Debridement Note Wound debrided: Medial leg ulcer Laterality: Right Type of Debridement: Excisional debridement Anesthesia Used: 5% Lidocaine Gel Depth: Down to and including healthy tissue and in the subcutaneous layer Percentage of wound debrided: 100 Instrument Used: 3mm curette Tissue Removed: Devitalized tissue and slough Severity: Fat Layer Exposed Amount of bleeding with debridement: Mild Bleeding Controlled with: Pressure and Compression and gauze Patient tolerated procedure: Patient tolerated procedure well Post-Debridement Measurements and Additional Note: Post-Debridement Measurements/Treatment - Nurse 1 - General Ulcer Assessment Start: 05/27/22 14:19 Freq: Status: Active Protocol: LUIZ.TOBY Activity Type Activity Date Activity User E-sign Co-sign Detail Recorded Client Recorded Date Recorded By Document 05/27/22 14:20 FAWAD [id number] 05/27/22 14:23 FAWAD 05/27/22 14:20 - Today's Visit Information Type of service 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 Any new allergies or adverse reactions No Had a fall/change in ADL's that may No increase risk of falls Signs or symptoms of abuse and/or No neglect since last visit Have you been in the hospital since your No last visit? Has dressing in place as prescribed Yes Has compression in place as prescribed Yes Has offloadiing in place as prescribed N/A Experienced any changes in pain level or No management Left Footwear Regular Shoe Right Footwear Regular Shoe Pain Scale: 0-10 Numeric Is Patient Pain Free? Yes - Nurse 1 - General Ulcer Measurement Start: 05/27/22 14:19 Freq: Status: Active Protocol: Activity Type Activity Date Activity User E-sign Co-sign Detail Recorded Client Recorded Date Recorded By Document 05/27/22 14:20 FAWAD [id number] 05/27/22 14:23 FAWAD 05/27/22 14:20 Wound Center Nurse 1 #1 Right Gallegos -Current Size (cm) - Length 1.2 -Current Size (cm) - Width 0.4 -Current Size (cm) - Depth 0.1 -Total Square Cm 0.48 -Photo Taken No -Tunneling No -Undermining/Tunneling No -Circular Undermining No -Change in Wound Grade/Stage No -Exudate Amt Small -Exudate Type Serosanguineous -Wound Margin Distinct, Outline Attached -Granulation Amt None Present (0 %) -Granulation Quality N/A -Slough/Fibrin No -Necrosis Amt None Present (0 %) -Structure Exposed N/A -Texture (Taylor-wound Skin Appearance) No Abnormality, Assessed -Moisture (Taylor-wound Skin Appearance) No Abnormality, Assessed -Color (Taylor-wound Skin Appearance) No Abnormality, Assessed -Temperature (Taylor-wound Skin No Abnormality Appearance) (Pt Warm) -Tenderness on Palpation (Taylor-wound No Skin Appearance) -Ulcer Cleansing Rinsed/ Irrigated with Saline -Foul Odor after Cleansing No -Anesthetic Used 4% Lidocaine Solution #2 RIGHT medial GALLEGOS -Combined with other wound No -Current Size (cm) - Length 2.4 -Current Size (cm) - Width 1.5 -Current Size (cm) - Depth 0.1 -Total Square Cm 3.60 -Photo Taken No -Tunneling No -Undermining/Tunneling No -Circular Undermining No -Change in Wound Grade/Stage No -Exudate Amt Medium -Exudate Type Serosanguineous -Wound Margin Distinct, Outline Attached -Granulation Amt Small (1-33%) -Granulation Quality [place] -Slough/Fibrin Yes -Necrosis Amt Small (1-33%) -Necrotic Tissue Type Adherent Slough -Structure Exposed N/A -Texture (Taylor-wound Skin Appearance) No Abnormality, Assessed -Moisture (Taylor-wound Skin Appearance) No Abnormality, Assessed -Color (Taylor-wound Skin Appearance) No Abnormality, Assessed -Temperature (Taylor-wound Skin No Abnormality Appearance) (Pt Warm) -Tenderness on Palpation (Taylor-wound No Skin Appearance) -Ulcer Cleansing Rinsed/ Irrigated with Saline -Foul Odor after Cleansing No -Anesthetic Used 4% Lidocaine Solution Right Calf (cm) 41 Right Ankle (cm) 23 WC - Nurse 2 - General Ulcer CM Notes Start: 05/27/22 14:19 Freq: Status: Active Protocol: Activity Type Activity Date Activity User E-sign Co-sign Detail Recorded Client Recorded Date Recorded By Document 05/27/22 14:29 [id number] 05/27/22 14:31 05/27/22 14:29 Wound Center Nurse 2 #2 RIGHT medial GALLEGOS -Time 14:30 -Correct Patient Yes -Correct Side, Site, Position Yes -Correct Procedure Yes -Procedure Performed Yes -Type of Procedure Debridement -Clinical Debridement Subcutaneous -Tissue Removed Subcutaneous -Post Debridement (cm) - Length 2.7 -Post Debridement (cm) - Width 1.8 -Post Debridement (cm) - Depth 0.1 -Total Square (Post) (cm) 4.86 -Area of Debridement (cm) - Length 2.7 -Area of Debridement (cm) - Width 1.8 -Total Square (Area) (cm) 4.86 -Tunneling No -Undermining/Tunneling No -Circular Undermining No -Wound/Ulcer Outcome Not Healed -Ulcer Cleansing Rinsed/ Irrigated with Saline -Foul Odor after Cleansing No -Bioengineered Tissue No -Bleeding Controlled with Pressure -Treatment Response Procedure Tolerated Well -Offloading No -Debridement - Subq, 1st 20sq cm Yes Pain Scale: 0-10 Numeric Is Patient Pain Free? Yes Assessment/Plan Assessment/Plan (1) Ulcer of right lower extremity with fat layer exposed: CODE(S): L97.912 - Non-pressure chronic ulcer of unspecified part of right lower leg with fat layer exposed (2) Wound of right lower extremity: CODE(S): S81.801A - Unspecified open wound, right lower leg, initial encounter (3) Edema of both lower extremities: CODE(S): R60.0 - Localized edema (4) Polyneuropathy: CODE(S): G62.9 - Polyneuropathy, unspecified PLAN: Plan Patient was evaluated at the wound healing center and a subcutaneous debridement was performed as documented. Wound care - Wash ulcer with soap and water daily and pat dry. Place Jayna to the right anterior leg ulcer and cover with dry gauze and kerlix daily. To the right medial leg wound place collagen hydrogel covered with adaptic and topped with dry gauze daily. Compression - Continue compression socks with MATT wraps as previously have been applying, on the right leg place MATT wrap over the compression stocking. Wound culture obtained on 03/26/22, which was positive for Staphylococcus aureus.? He completed Doxycycline. Vascular studies obtained today, 05/13/22 results noted in HPI. Discussed results with patient and his . Will refer him to Dr. Pang for further evaluation. Follow up on week.
[2022-06-02 13:49] VITALS: BP 138/86; PULSE 80; RESP 20; TEMP 36.1
--- NOTE | 2022-06-02 16:32 | PCM.WC.PN ---
History of Present Illness Date of Service: 06/02/22 Chief Complaint: Non healing right leg ulcer History of Wound: Patient is 71 year old male who has had a non healing wound on his right anterior leg. He has had this ulcer for approximately 9 months. He has been cleaning it daily with hydrogen peroxide and then placing antibiotic ointment. He has issues with bilateral lower extremity edema. He states he wears compression socks and an KRISH wrap to help his chronic edema. He does sleep in a recliner. He has a history of spinal stenosis with surgeries 12/05, 10/08, and 02/09 and hypothyroidism and polyneuropathy from the back pain, and also has lower extremity leg weakness from his back pain. Obtained a wound culture on 03/26/22 which was positive for Staphylococcus aureus and he was treated Doxycycline. Venous studies obtained 05/13/22 which showed Chronic deep vein thrombosis is noted in the right tibio-peroneal trunk. Chronic superficial vein thrombosis is noted in the left greater saphenous vein. The right greater saphenous vein demonstrates valvular incompetence below the knee. The right accessory saphenous vein demonstrates valvular incompetence. The left saphenofemoral junction, greater saphenous vein, and accessory saphenous vein demonstrate valvular incompetence. Arterial studies obtained on 05/13/22 show Right SINDY 1.48 and Left SINDY 1.46 with Dopppler/PVR waveforms normal at rest bilaterally. Will refer him to Dr. Pang for further evaluation. Wound care - Moistened Jayna covered with gauze. Wear compression stockings with and KRISH wrap over the the right compression stocking. Today he denies fever, chills, nausea and vomiting. He states he has a good appetite. Progress of Wound: Right medial leg ulcer is smaller in size. His wound bed is beefy pink. Objective Data Objective Data Vital Signs: Vital Signs Temp Pulse Resp BP 97 F L 80 20 H 138/86 H 06/02/22 13:49 06/02/22 13:49 06/02/22 13:49 06/02/22 13:49 Charges/Coding Procedures Integumentary 111xxx-113xx: [id number] Ani subq tissue 20 sq cm/< Debridement Note Debridement Note Wound debrided: Medial leg ulcer Laterality: Right Type of Debridement: Excisional debridement Anesthesia Used: 5% Lidocaine Gel Depth: Down to and including healthy tissue and in the subcutaneous layer Percentage of wound debrided: 100 Instrument Used: 3mm curette Tissue Removed: Devitalized tissue and slough Severity: Fat Layer Exposed Amount of bleeding with debridement: Mild Bleeding Controlled with: Pressure and Compression and gauze Patient tolerated procedure: Patient tolerated procedure well Post-Debridement Measurements and Additional Note: Post-Debridement Measurements/Treatment LUIZ - Nurse 1 - General Ulcer Assessment Start: 05/27/22 14:19 Freq: Status: Active Protocol: GREGORY Activity Type Activity Date Activity User E-sign Co-sign Detail Recorded Client Recorded Date Recorded By Document 05/27/22 14:20 [place] [id number] 05/27/22 14:23 AK Document 06/02/22 13:49 DL [id number] 06/02/22 13:55 DL 05/27/22 06/02/22 14:20 13:49 LUIZ - Today's Visit Information Type of service Follow-up Visit 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 ) ) Arrival Mode Wheelchair Wheelchair Arrival Mode (Other) 1 person assist Transfer Assistance None Accompanied by Patient Identification Verified (Name & Yes Yes ) Patient Requires Transmission-Based No Precautions Vital Signs Temperature (97.8 F-99.1 F) 98.1 F 97 F L Temperature Source Temporal Temporal Pulse Rate (60-100) 88 80 Pulse Location Monitor Monitor Respiratory Rate (12-18) 20 H Respiratory rate source Observation Blood Pressure (90/60-120/80) 153/71 H 138/86 H Blood Pressure Mean (mm Hg) 98 103 Source Monitor Monitor History Since Last Visit- (Skip if this is Patient's initial visit) Have you changed medications since your No No last visit? Any new allergies or adverse reactions No No Had a fall/change in ADL's that may No No increase risk of falls Signs or symptoms of abuse and/or No No neglect since last visit Have you been in the hospital since your No No last visit? Has dressing in place as prescribed Yes Yes Has compression in place as prescribed Yes Yes Has offloadiing in place as prescribed N/A N/A Experienced any changes in pain level or No No management Left Footwear Regular Shoe Right Footwear Regular Shoe Pain Scale: 0-10 Numeric Is Patient Pain Free? Yes Yes LUIZ - Nurse 1 - General Ulcer Measurement Start: 05/27/22 14:19 Freq: Status: Active Protocol: Activity Type Activity Date Activity User E-sign Co-sign Detail Recorded Client Recorded Date Recorded By Document 05/27/22 14:20 AK [id number] 05/27/22 14:23 AK Document 06/02/22 13:49 DL [id number] 06/02/22 13:55 DL 05/27/22 06/02/22 14:20 13:49 Wound Center Nurse 1 #1 Right Gallegos -Current Size (cm) - Length 1.2 -Current Size (cm) - Width 0.4 -Current Size (cm) - Depth 0.1 -Total Square Cm 0.48 -Photo Taken No -Tunneling No -Undermining/Tunneling No -Circular Undermining No -Change in Wound Grade/Stage No -Exudate Amt Small -Exudate Type Serosanguineous -Wound Margin Distinct, Outline Attached -Granulation Amt None Present (0 %) -Granulation Quality N/A -Slough/Fibrin No -Necrosis Amt None Present (0 %) -Structure Exposed N/A -Texture (Taylor-wound Skin Appearance) No Abnormality, Assessed -Moisture (Taylor-wound Skin Appearance) No Abnormality, Assessed -Color (Taylor-wound Skin Appearance) No Abnormality, Assessed -Temperature (Taylor-wound Skin No Abnormality Appearance) (Pt Warm) -Tenderness on Palpation (Taylor-wound No Skin Appearance) -Ulcer Cleansing Rinsed/ Irrigated with Saline -Foul Odor after Cleansing No -Anesthetic Used 4% Lidocaine Solution #2 RIGHT medial GALLEGSO -Combined with other wound No -Current Size (cm) - Length 2.4 2 -Current Size (cm) - Width 1.5 1.5 -Current Size (cm) - Depth 0.1 0.1 -Total Square Cm 3.60 3.0 -Photo Taken No Yes -Tunneling No -Undermining/Tunneling No -Circular Undermining No -Change in Wound Grade/Stage No -Exudate Amt Medium Medium -Exudate Type Serosanguineous -Wound Margin Distinct, Distinct, Outline Outline Attached Attached -Granulation Amt Small (1-33%) Large (67-100%) -Granulation Quality [place] Red -Slough/Fibrin Yes -Necrosis Amt Small (1-33%) Small (1-33%) -Necrotic Tissue Type Adherent Slough Adherent Slough -Structure Exposed N/A -Texture (Taylor-wound Skin Appearance) No Abnormality, Scarring Assessed -Moisture (Taylor-wound Skin Appearance) No Abnormality, Maceration Assessed -Color (Taylor-wound Skin Appearance) No Abnormality, Hemosiderin Assessed Staining -Temperature (Taylor-wound Skin No Abnormality No Abnormality Appearance) (Pt Warm) (Pt Warm) -Tenderness on Palpation (Taylor-wound No No Skin Appearance) -Ulcer Cleansing Rinsed/ Rinsed/ Irrigated with Irrigated with Saline Saline -Foul Odor after Cleansing No No -Anesthetic Used 4% Lidocaine 5% Lidocaine Solution Gel Right Calf (cm) 41 38 Right Ankle (cm) 23 23 WC - Nurse 2 - General Ulcer CM Notes Start: 05/27/22 14:19 Freq: Status: Active Protocol: Activity Type Activity Date Activity User E-sign Co-sign Detail Recorded Client Recorded Date Recorded By Document 05/27/22 14:29 [id number] 05/27/22 14:31 Document 06/02/22 14:14 [id number] 06/02/22 14:18 05/27/22 06/02/22 14:29 14:14 Wound Center Nurse 2 #2 RIGHT medial GALLEGOS -Time 14:30 14:14 -Correct Patient Yes Yes -Correct Side, Site, Position Yes Yes -Correct Procedure Yes Yes -Procedure Performed Yes Yes -Type of Procedure Debridement Debridement -Clinical Debridement Subcutaneous Subcutaneous -Tissue Removed Subcutaneous Subcutaneous -Post Debridement (cm) - Length 2.7 2.5 -Post Debridement (cm) - Width 1.8 1.8 -Post Debridement (cm) - Depth 0.1 0.1 -Total Square (Post) (cm) 4.86 4.50 -Area of Debridement (cm) - Length 2.7 2.5 -Area of Debridement (cm) - Width 1.8 1.8 -Total Square (Area) (cm) 4.86 4.50 -Tunneling No No -Undermining/Tunneling No No -Circular Undermining No No -Wound/Ulcer Outcome Not Healed Not Healed -Ulcer Cleansing Rinsed/ Rinsed/ Irrigated with Irrigated with Saline Saline -Foul Odor after Cleansing No No -Bioengineered Tissue No No -Bleeding Controlled with Pressure Pressure -Treatment Response Procedure Procedure Tolerated Well Tolerated Well -Offloading No No -Debridement - Subq, 1st 20sq cm Yes Yes Pain Scale: 0-10 Numeric Is Patient Pain Free? Yes Yes - Nurse 3 - General Ulcer D/C NN Start: 05/27/22 14:19 Freq: Status: Active Protocol: Activity Type Activity Date Activity User E-sign Co-sign Detail Recorded Client Recorded Date Recorded By Document 06/02/22 14:25 [facility] [id number] 06/02/22 14:26 [facility] 06/02/22 14:25 Wound Care Nurse 3 #2 RIGHT medial GALLEGOS -Ulcer Cleansing Rinsed/ Irrigated with Saline -Foul Odor after Cleansing No -Primary Dressing Applied Optilok 6.5x10, Promogran Jayna Matter -Primary Dressing Covered/Secured with Dry Gauze & Roll Gauze, Secured with Tape -Other Covering DRSG PER [place] INTERACTIVE DIGITAL MEDIA SPECIALIST -Optilok 6.5x10 1 -Promogran Jayna Matter 1 Right -Compression Wrap Krish Wrap -Other PTS OWN COMPRESSION STOCKING Treatment Response Procedure Tolerated Well Pain Scale: 0-10 Numeric Is Patient Pain Free? Yes - Visit Discharge Discharge Condition Stable Ambulatory Status Ambulatory Transportation Private Auto Assessment/Plan Assessment/Plan (1) Ulcer of right lower extremity with fat layer exposed: CODE(S): L97.912 - Non-pressure chronic ulcer of unspecified part of right lower leg with fat layer exposed (2) Wound of right lower extremity: CODE(S): S81.801A - Unspecified open wound, right lower leg, initial encounter (3) Edema of both lower extremities: CODE(S): R60.0 - Localized edema (4) Polyneuropathy: CODE(S): G62.9 - Polyneuropathy, unspecified PLAN: Plan Patient was evaluated at the wound healing center and a subcutaneous debridement was performed as documented. Wound care - Wash ulcer with soap and water daily and pat dry. Place Moistened Jayna to the right anterior leg ulcer and cover with dry gauze daily. Massage the healed right medial leg ulcer with lotion daily to help soften the scarring. Compression - Continue compression socks with KRISH wraps as previously have been applying, on the right leg place KRISH wrap over the compression stocking. Wound culture obtained on 03/26/22, which was positive for Staphylococcus aureus.? He completed Doxycycline. Vascular studies obtained today, 05/13/22 results noted in HPI. He saw Dr. Pang 05/28/22 for evaluation and will continue to monitor and will have him follow up in 2 months. He would benefit from an advanced wound healing product such as Epifix to help expedite his wound healing. We will apply to his insurance company for approval. The patient would like more information about the cost before he would consider using the product. Follow up on week.
[2022-06-09 14:09] VITALS: BP 149/85; PULSE 81; TEMP 36.4
--- NOTE | 2022-06-09 16:15 | PCM.WC.PN ---
History of Present Illness Date of Service: 06/09/22 Chief Complaint: Non healing right leg ulcer History of Wound: Patient is 71 year old male who has had a non healing wound on his right anterior leg. He has had this ulcer for approximately 9 months. He has been cleaning it daily with hydrogen peroxide and then placing antibiotic ointment. He has issues with bilateral lower extremity edema. He states he wears compression socks and an KRISH wrap to help his chronic edema. He does sleep in a recliner. He has a history of spinal stenosis with surgeries 12/05, 10/08, and 02/09 and hypothyroidism and polyneuropathy from the back pain, and also has lower extremity leg weakness from his back pain. Obtained a wound culture on 03/26/22 which was positive for Staphylococcus aureus and he was treated Doxycycline. Venous studies obtained 05/13/22 which showed Chronic deep vein thrombosis is noted in the right tibio-peroneal trunk. Chronic superficial vein thrombosis is noted in the left greater saphenous vein. The right greater saphenous vein demonstrates valvular incompetence below the knee. The right accessory saphenous vein demonstrates valvular incompetence. The left saphenofemoral junction, greater saphenous vein, and accessory saphenous vein demonstrate valvular incompetence. Arterial studies obtained on 05/13/22 show Right SINDY 1.48 and Left SINDY 1.46 with Dopppler/PVR waveforms normal at rest bilaterally. He saw Dr. Pang on 05/28/22 and he states that the patient's wounds are improving with compression, he will hold further imaging/intervention unless wounds regress or recur and the patient is to follow up with him in 2 months or sooner if things worsen. Wound care - Moistened Jayna covered with gauze. Wear compression stockings with and KRISH wrap over the the right compression stocking. Today he denies fever, chills, nausea and vomiting. He states he has a good appetite. Progress of Wound: Right medial leg ulcer is smaller in size. His wound bed is beefy pink. Objective Data Objective Data Vital Signs: Vital Signs Temp Pulse Resp BP 97.6 F L 81 20 H 149/85 H 06/09/22 14:09 06/09/22 14:09 06/02/22 13:49 06/09/22 14:09 Charges/Coding Procedures Integumentary [id number]: [id number] Ani subq tissue 20 sq cm/< Debridement Note Debridement Note Wound debrided: Medial leg ulcer Laterality: Right Type of Debridement: Excisional debridement Anesthesia Used: 5% Lidocaine Gel Depth: Down to and including healthy tissue and in the subcutaneous layer Percentage of wound debrided: 100 Instrument Used: 3mm curette Tissue Removed: Devitalized tissue and slough Severity: Fat Layer Exposed Amount of bleeding with debridement: Mild Bleeding Controlled with: Pressure and Compression and gauze Patient tolerated procedure: Patient tolerated procedure well Post-Debridement Measurements and Additional Note: Post-Debridement Measurements/Treatment - Nurse 1 - General Ulcer Assessment Start: 05/27/22 14:19 Freq: Status: Active Protocol: GREGORY Activity Type Activity Date Activity User E-sign Co-sign Detail Recorded Client Recorded Date Recorded By Document 05/27/22 14:20 AK [id number] 05/27/22 14:23 AK Document 06/02/22 13:49 DL [id number] 06/02/22 13:55 DL Document 06/09/22 14:09 KR [id number] 06/09/22 14:12 KR 05/27/22 06/02/22 06/09/22 14:20 13:49 14:09 - Today's Visit Information Type of service Follow-up Visit Follow-up Visit Follow-up Visit (Physician/WOMEN'S HEALTH CARE NURSE PRACTITIONER (Physician/WOMEN'S HEALTH CARE NURSE PRACTITIONER (Physician/WOMEN'S HEALTH CARE NURSE PRACTITIONER ) ) ) Arrival Mode Wheelchair Wheelchair Wheelchair Arrival Mode (Other) 1 person assist Transfer Assistance None Accompanied by Patient Identification Verified (Name & Yes Yes Yes ) Patient Requires Transmission-Based No Precautions Vital Signs Temperature (97.8 F-99.1 F) 98.1 F 97 F L 97.6 F L Temperature Source Temporal Temporal Temporal Pulse Rate (60-100) 88 80 81 Pulse Location Monitor Monitor Monitor Respiratory Rate (12-18) 20 H Respiratory rate source Observation Blood Pressure (90/60-120/80) 153/71 H 138/86 H 149/85 H Blood Pressure Mean (mm Hg) 98 103 106 Source Monitor Monitor Monitor Position Sitting Blood Pressure Location Right Arm History Since Last Visit- (Skip if this is Patient's initial visit) Have you changed medications since your No No No last visit? Any new allergies or adverse reactions No No No Had a fall/change in ADL's that may No No No increase risk of falls Signs or symptoms of abuse and/or No No No neglect since last visit Have you been in the hospital since your No No No last visit? Has dressing in place as prescribed Yes Yes Yes Has compression in place as prescribed Yes Yes Yes Has offloadiing in place as prescribed N/A N/A N/A Experienced any changes in pain level or No No No management Left Footwear Regular Shoe Regular Shoe Right Footwear Regular Shoe Regular Shoe Pain Scale: 0-10 Numeric Is Patient Pain Free? Yes Yes Yes WC - Nurse 1 - General Ulcer Measurement Start: 05/27/22 14:19 Freq: Status: Active Protocol: Activity Type Activity Date Activity User E-sign Co-sign Detail Recorded Client Recorded Date Recorded By Document 05/27/22 14:20 AK [id number] 05/27/22 14:23 AK Document 06/02/22 13:49 DL [id number] 06/02/22 13:55 DL Document 06/09/22 14:09 KR [id number] 06/09/22 14:12 KR 05/27/22 06/02/22 06/09/22 14:20 13:49 14:09 Wound Center Nurse 1 #1 Right Gal[place]os -Current Size (cm) - Length 1.2 -Current Size (cm) - Width 0.4 -Current Size (cm) - Depth 0.1 -Total Square Cm 0.48 -Photo Taken No -Tunneling No -Undermining/Tunneling No -Circular Undermining No -Change in Wound Grade/Stage No -Exudate Amt Small -Exudate Type Serosanguineous -Wound Margin Distinct, Outline Attached -Granulation Amt None Present (0 %) -Granulation Quality N/A -Slough/Fibrin No -Necrosis Amt None Present (0 %) -Structure Exposed N/A -Texture (Taylor-wound Skin Appearance) No Abnormality, Assessed -Moisture (Taylor-wound Skin Appearance) No Abnormality, Assessed -Color (Taylor-wound Skin Appearance) No Abnormality, Assessed -Temperature (Taylor-wound Skin No Abnormality Appearance) (Pt Warm) -Tenderness on Palpation (Taylor-wound No Skin Appearance) -Ulcer Cleansing Rinsed/ Irrigated with Saline -Foul Odor after Cleansing No -Anesthetic Used 4% Lidocaine Solution #2 RIGHT medial GALLEGOS -Combined with other wound No -Current Size (cm) - Length 2.4 2 2.1 -Current Size (cm) - Width 1.5 1.5 1.3 -Current Size (cm) - Depth 0.1 0.1 0.1 -Total Square Cm 3.60 3.0 2.73 -Photo Taken No Yes -Tunneling No -Undermining/Tunneling No -Circular Undermining No -Change in Wound Grade/Stage No -Exudate Amt Medium Medium Small -Exudate Type Serosanguineous Serosanguineous -Wound Margin Distinct, Distinct, Distinct, Outline Outline Outline Attached Attached Attached -Granulation Amt Small (1-33%) Large (67-100%) Medium (34-66%) -Granulation Quality [place] Red Red -Slough/Fibrin Yes -Necrosis Amt Small (1-33%) Small (1-33%) Medium (34-66%) -Necrotic Tissue Type Adherent Slough Adherent Slough Adherent Slough -Structure Exposed N/A -Texture (Taylor-wound Skin Appearance) No Abnormality, Scarring Assessed, Assessed Scarring -Moisture (Taylor-wound Skin Appearance) No Abnormality, Maceration No Abnormality, Assessed Assessed -Color (Taylor-wound Skin Appearance) No Abnormality, Hemosiderin No Abnormality, Assessed Staining Assessed -Temperature (Taylor-wound Skin No Abnormality No Abnormality No Abnormality Appearance) (Pt Warm) (Pt Warm) (Pt Warm) -Tenderness on Palpation (Taylor-wound No No No Skin Appearance) -Ulcer Cleansing Rinsed/ Rinsed/ Soap and Water Irrigated with Irrigated with Saline Saline -Foul Odor after Cleansing No No No -Anesthetic Used 4% Lidocaine 5% Lidocaine 5% Lidocaine Solution Gel Gel Right Calf (cm) 41 38 Right Ankle (cm) 23 23 WC - Nurse 2 - General Ulcer CM Notes Start: 05/27/22 14:19 Freq: Status: Active Protocol: Activity Type Activity Date Activity User E-sign Co-sign Detail Recorded Client Recorded Date Recorded By Document 05/27/22 14:29 HILL [id number] 05/27/22 14:31 HILL Document 06/02/22 14:14 HILL [id number] 06/02/22 14:18 Document 06/09/22 14:49 HILL [id number] 06/09/22 14:56 JF 05/27/22 06/02/22 06/09/22 14:29 14:14 14:49 Wound Center Nurse 2 #2 RIGHT medial GALLEGOS -Time 14:30 14:14 14:49 -Correct Patient Yes Yes Yes -Correct Side, Site, Position Yes Yes Yes -Correct Procedure Yes Yes Yes -Procedure Performed Yes Yes Yes -Type of Procedure Debridement Debridement Debridement -Clinical Debridement Subcutaneous Subcutaneous Subcutaneous -Tissue Removed Subcutaneous Subcutaneous Subcutaneous -Post Debridement (cm) - Length 2.7 2.5 2.2 -Post Debridement (cm) - Width 1.8 1.8 1.5 -Post Debridement (cm) - Depth 0.1 0.1 0.1 -Total Square (Post) (cm) 4.86 4.50 3.30 -Area of Debridement (cm) - Length 2.7 2.5 2.2 -Area of Debridement (cm) - Width 1.8 1.8 1.5 -Total Square (Area) (cm) 4.86 4.50 3.30 -Tunneling No No No -Undermining/Tunneling No No No -Circular Undermining No No No -Wound/Ulcer Outcome Not Healed Not Healed Not Healed -Ulcer Cleansing Rinsed/ Rinsed/ Rinsed/ Irrigated with Irrigated with Irrigated with Saline Saline Saline -Foul Odor after Cleansing No No No -Bioengineered Tissue No No No -Bleeding Controlled with Pressure Pressure Pressure -Treatment Response Procedure Procedure Procedure Tolerated Well Tolerated Well Tolerated Well -Offloading No No No -Debridement - Subq, 1st 20sq cm Yes Yes Yes Pain Scale: 0-10 Numeric Is Patient Pain Free? Yes Yes Yes - Nurse 3 - General Ulcer D/C NN Start: 05/27/22 14:19 Freq: Status: Active Protocol: Activity Type Activity Date Activity User E-sign Co-sign Detail Recorded Client Recorded Date Recorded By Document 06/02/22 14:25 [facility] [id number] 06/02/22 14:26 [facility] 06/02/22 14:25 Wound Care Nurse 3 #2 RIGHT medial GALLEGOS -Ulcer Cleansing Rinsed/ Irrigated with Saline -Foul Odor after Cleansing No -Primary Dressing Applied Optilok 6.5x10, Promogran Jayna Matter -Primary Dressing Covered/Secured with Dry Gauze & Roll Gauze, Secured with Tape -Other Covering DRSG PER [place] MEDICAL RECORDS COORDINATOR -Optilok 6.5x10 1 -Promogran Jayna Matter 1 Right -Compression Wrap Krish Wrap -Other PTS OWN COMPRESSION STOCKING Treatment Response Procedure Tolerated Well Pain Scale: 0-10 Numeric Is Patient Pain Free? Yes WC - Visit Discharge Discharge Condition Stable Ambulatory Status Ambulatory Transportation Private Auto Assessment/Plan Assessment/Plan (1) Ulcer of right lower extremity with fat layer exposed: CODE(S): L97.912 - Non-pressure chronic ulcer of unspecified part of right lower leg with fat layer exposed (2) Wound of right lower extremity: CODE(S): S81.801A - Unspecified open wound, right lower leg, initial encounter (3) Edema of both lower extremities: CODE(S): R60.0 - Localized edema (4) Polyneuropathy: CODE(S): G62.9 - Polyneuropathy, unspecified PLAN: Plan Patient was evaluated at the wound healing center and a subcutaneous debridement was performed as documented. Wound care - Wash ulcer with soap and water daily and pat dry. Place Moistened Jayna to the right anterior leg ulcer and cover with [place] SAP dressing daily. Massage the healed right medial leg ulcer with lotion daily to help soften the scarring. Compression - Continue compression socks with KRISH wraps as previously have been applying, on the right leg place KRISH wrap over the compression stocking. Wound culture obtained on 03/26/22, which was positive for Staphylococcus aureus.? He completed Doxycycline. Vascular studies obtained today, 05/13/22 results noted in HPI. He saw Dr. Pang 05/28/22 for evaluation and will continue to monitor and will have him follow up in 2 months. He would benefit from an advanced wound healing product such as Epifix to help expedite his wound healing. We applied for approval, but the patient would like to continue conservative treatment at this time since his ulcer continues to make progress. Follow up two weeks, per patient request.
== END 2022-06-22 23:59 | disposition home or self-care (01) ==
LOC: WC 14:15
PROVIDERS: PCP Family Medicine; Referring Provider Nurse Practitioner Family; Visit Provider Nurse Practitioner Family
DX: L97.912 Non-pressure chronic ulcer of unspecified part of right lower leg with fat layer exposed (principal); I82.551 Chronic embolism and thrombosis of right peroneal vein; G62.9 Polyneuropathy, unspecified; R60.0 Localized edema; I82.811 Embolism and thrombosis of superficial veins of right lower extremity; R53.1 Weakness
CPT/HCPCS: 11042

== ENCOUNTER 2022-07-21 13:45 | Outpatient (RCR) | payer MEDICARE, SELFPAY ==
[2022-06-23 00:31] VITALS: BP 149/85; PULSE 81; RESP 20; TEMP 36.4
[2022-06-23 13:45] VITALS: BP 152/78; PULSE 81; RESP 16; TEMP 36.3
--- NOTE | 2022-06-23 17:16 | PN.PCM_ITS ---
History of Present Illness Date of Service: 06/23/22 Chief Complaint: Non healing right leg ulcer History of Wound: Patient is 71 year old male who has had a non healing wound on his right anterior leg. He has had this ulcer for approximately 9 months. He has been cleaning it daily with hydrogen peroxide and then placing antibiotic ointment. He has issues with bilateral lower extremity edema. He states he wears compression socks and an MATT wrap to help his chronic edema. He does sleep in a recliner. He has a history of spinal stenosis with surgeries 12/05, 10/08, and 02/09 and hypothyroidism and polyneuropathy from the back pain, and also has lower extremity leg weakness from his back pain. Obtained a wound culture on 03/26/22 which was positive for Staphylococcus aureus and he was treated Doxycycline. Venous studies obtained 05/13/22 which showed Chronic deep vein thrombosis is noted in the right tibio-peroneal trunk. Chronic superficial vein thrombosis is noted in the left greater saphenous vein. The right greater saphenous vein demonstrates valvular incompetence below the knee. The right accessory saphenous vein demonstrates valvular incompetence. The left saphenofemoral junction, greater saphenous vein, and accessory saphenous vein demonstrate valvular incompetence. Arterial studies obtained on 05/13/22 show Right SINDY 1.48 and Left SINDY 1.46 with Dopppler/PVR waveforms normal at rest bilaterally. He saw Dr. Pang on 05/28/22 and he states that the patient's wounds are im proving with compression, he will hold further imaging/intervention unless wounds regress or recur and the patient is to follow up with him in 2 months or sooner if things worsen. Wound care - Moistened Jayna covered with gauze. Wear compression stockings with and MATT wrap over the the right compression stocking. Today he denies fever, chills, nausea and vomiting. He states he has a good ap petite. Progress of Wound: Right leg ulcer is smaller in size. His wound bed is beefy pink. Objective Data Objective Data Vital Signs: Vital Signs Temp Pulse Resp BP O2 Del Method 97.3 F L 81 16 152/78 H Room Air 06/23/22 13:45 06/23/22 13:45 06/23/22 13:45 06/23/22 13:45 06/23/22 13:45 Oxygen Delivery Method Room Air Charges/Coding Procedures Integumentary 111xxx-113xx: [id number] Ani subq tissue 20 sq cm/< Debridement Note Debridement Note Wound debrided: Medial leg ulcer Laterality: Right Type of Debridement: Excisional debridement Anesthesia Used: 5% Lidocaine Gel Depth: Down to and including healthy tissue and in the subcutaneous layer Percentage of wound debrided: 100 Instrument Used: 3mm curette Tissue Removed: Devitalized tissue and slough Severity: Fat Layer Exposed Amount of bleeding with debridement: Mild Bleeding Controlled with: Pressure and Compression and gauze Patient tolerated procedure: Patient tolerated procedure well Post-Debridement Measurements and Additional Note: Post-Debridement Measurements/Treatment - Nurse 1 - General Ulcer Assessment Start: 06/23/22 13:45 Freq: Status: Active Protocol: GREGORY Activity Type Activity Date Activity User E-sign Co-sign Detail Recorded Client Recorded Date Recorded By Document 06/23/22 13:45 [id number] 06/23/22 14:02 06/23/22 13:45 WC - Today's Visit Information Type of service Follow-up Visit (Physician/MATHEMATICS DEPARTMENT CHAIR ) Arrival Mode Ambulatory Transfer Assistance None Accompanied by Patient Identification Verified (Name & Yes ) Patient Requires Transmission-Based No Precautions Safety Precautions Fall Prevention Vital Signs Temperature (97.8 F-99.1 F) 97.3 F L Temperature Source Temporal Pulse Rate (60-100) 81 Pulse Location Monitor Respiratory Rate (12-18) 16 Respiratory rate source Observation Oxygen Delivery Method Room Air Blood Pressure (90/60-120/80) 152/78 H Blood Pressure Mean (mm Hg) 102 Source Monitor Position Sitting Blood Pressure Location Right Arm History Since Last Visit- (Skip if this is Patient's initial visit) Have you changed medications since your No last visit? Any new allergies or adverse reactions No Had a fall/change in ADL's that may No increase risk of falls Signs or symptoms of abuse and/or No neglect since last visit Have you been in the hospital since your No last visit? Has dressing in place as prescribed Yes Has compression in place as prescribed Yes Has offloadiing in place as prescribed N/A Experienced any changes in pain level or No management Left Footwear Regular Shoe Right Footwear Regular Shoe Pain Scale: 0-10 Numeric Is Patient Pain Free? Yes - Nurse 1 - General Ulcer Measurement Start: 06/23/22 13:45 Freq: Status: Active Protocol: Activity Type Activity Date Activity User E-sign Co-sign Detail Recorded Client Recorded Date Recorded By Document 06/23/22 13:45 [id number] 06/23/22 14:02 MW 06/23/22 13:45 Wound Center Nurse 1 #2 RIGHT medial SAHA -Combined with other wound No -Current Size (cm) - Length 1.3 -Current Size (cm) - Width 0.8 -Current Size (cm) - Depth 0.1 -Total Square Cm 1.04 -Date of Last Picture (Recall this 06/23/22 field) -Photo Taken Yes -Epithelialization Small 1-33% -Tunneling No -Undermining/Tunneling No -Circular Undermining No -Exudate Amt Medium -Exudate Type Serosanguineous -Wound Margin Flat & Intact -Granulation Amt Large (67-100%) -Granulation Quality Red -Slough/Fibrin Yes -Necrosis Amt Small (1-33%) -Necrotic Tissue Type Adherent Slough -Structure Exposed Fat Layer Exposed -Texture (Taylor-wound Skin Appearance) Assessed, Localized Edema ,Scarring -Moisture (Taylor-wound Skin Appearance) Assessed, Maceration -Color (Taylor-wound Skin Appearance) Assessed -Temperature (Taylor-wound Skin No Abnormality Appearance) (Pt Warm) -Tenderness on Palpation (Taylor-wound No Skin Appearance) -Ulcer Cleansing Soap and Water -Foul Odor after Cleansing No -Anesthetic Used 5% Lidocaine Gel Lower Limb Edema Present Yes Right Calf (cm) 41.0 Right Ankle (cm) 23.4 - Nurse 2 - General Ulcer CM Notes Start: 06/23/22 13:45 Freq: Status: Active Protocol: Activity Type Activity Date Activity User E-sign Co-sign Detail Recorded Client Recorded Date Recorded By Document 06/23/22 14:15 [id number] 06/23/22 14:18 HILL 06/23/22 14:15 Wound Center Nurse 2 #2 RIGHT medial SAHA -Time 14:15 -Correct Patient Yes -Correct Side, Site, Position Yes -Correct Procedure Yes -Procedure Performed Yes -Type of Procedure Debridement -Clinical Debridement Subcutaneous -Tissue Removed Subcutaneous -Post Debridement (cm) - Length 1.3 -Post Debridement (cm) - Width 0.9 -Post Debridement (cm) - Depth 0.1 -Total Square (Post) (cm) 1.17 -Area of Debridement (cm) - Length 1.3 -Area of Debridement (cm) - Width 0.9 -Total Square (Area) (cm) 1.17 -Tunneling No -Undermining/Tunneling No -Circular Undermining No -Wound/Ulcer Outcome Not Healed -Ulcer Cleansing Rinsed/ Irrigated with Saline -Foul Odor after Cleansing No -Bioengineered Tissue No -Bleeding Controlled with Pressure -Treatment Response Procedure Tolerated Well -Offloading No -Debridement - Subq, 1st 20sq cm Yes Pain Scale: 0-10 Numeric Is Patient Pain Free? Yes - Nurse 3 - General Ulcer D/C NN Start: 06/23/22 13:45 Freq: Status: Active Protocol: Activity Type Activity Date Activity User E-sign Co-sign Detail Recorded Client Recorded Date Recorded By Document 06/23/22 14:35 [facility] [id number] 06/23/22 14:36 [facility] 06/23/22 14:35 Wound Care Nurse 3 #2 RIGHT medial SAHA -Ulcer Cleansing Rinsed/ Irrigated with Saline -Foul Odor after Cleansing No -Primary Dressing Applied Promogran Jayna Matter -Other Dressing DRSG PER MW RN -Primary Dressing Covered/Secured with Dry Gauze & Roll Gauze, Secured with Tape -Promogran Jayna Matter 1 Right -Other PTS OWN COMPRESSION AND MATT APPLIED PER MW RN Treatment Response Procedure Tolerated Well Pain Scale: 0-10 Numeric Is Patient Pain Free? Yes - Visit Discharge Discharge Condition Stable Ambulatory Status Wheelchair Transportation Private Auto Accompanied by Assessment/Plan Assessment/Plan (1) Ulcer of right lower extremity with fat layer exposed: CODE(S): L97.912 - Non-pressure chronic ulcer of unspecified part of right lower leg with fat layer exposed (2) Wound of right lower extremity: CODE(S): S81.801A - Unspecified open wound, right lower leg, initial encounter (3) Edema of both lower extremities: CODE(S): R60.0 - Localized edema (4) Polyneuropathy: CODE(S): G62.9 - Polyneuropathy, unspecified PLAN: Plan Patient was evaluated at the wound healing center and a subcutaneous debridement was performed as documented. Wound care - Wash ulcer with soap and water daily and pat dry. Place Moistened Jayna to the right anterior leg ulcer and cover with [place] SAP dressing daily. Massage the healed right medial leg ulcer with lotion daily to help soften the scarring. Compression - Continue compression socks with MATT wraps as previously have been applying, on the right leg place MATT wrap over the compression stocking. Wound culture obtained on 03/26/22, which was positive for Staphylococcus aureus.? He completed Doxycycline. Vascular studies obtained today, 05/13/22 results noted in HPI. He saw Dr. Pang 05/28/22 for evaluation and will continue to monitor and will have him follow up in 2 months. He would benefit from an advanced wound healing product such as Epifix to help expedite his wound healing. We applied for approval, but the patient would like to continue conservative treatment at this time since his ulcer continues to make progress. Follow up two weeks, per patient request.
[2022-07-07 13:20] VITALS: BP 141/82; PULSE 80; RESP 16
--- NOTE | 2022-07-07 15:22 | PCM.WC.PN ---
History of Present Illness Date of Service: 07/07/22 Chief Complaint: Non healing right leg ulcer History of Wound: Patient is 71 year old male who has had a non healing wound on his right anterior leg. He has had this ulcer for approximately 9 months. He has been cleaning it daily with hydrogen peroxide and then placing antibiotic ointment. He has issues with bilateral lower extremity edema. He states he wears compression socks and an MATT wrap to help his chronic edema. He does sleep in a recliner. He has a history of spinal stenosis with surgeries 12/05, 10/08, and 02/09 and hypothyroidism and polyneuropathy from the back pain, and also has lower extremity leg weakness from his back pain. Obtained a wound culture on 03/26/22 which was positive for Staphylococcus aureus and he was treated Doxycycline. Venous studies obtained 05/13/22 which showed Chronic deep vein thrombosis is noted in the right tibio-peroneal trunk. Chronic superficial vein thrombosis is noted in the left greater saphenous vein. The right greater saphenous vein demonstrates valvular incompetence below the knee. The right accessory saphenous vein demonstrates valvular incompetence. The left saphenofemoral junction, greater saphenous vein, and accessory saphenous vein demonstrate valvular incompetence. Arterial studies obtained on 05/13/22 show Right SINDY 1.48 and Left SINDY 1.46 with Dopppler/PVR waveforms normal at rest bilaterally. He saw Dr. Pang on 05/28/22 and he states that the patient's wounds are improving with compression, he will hold further imaging/intervention unless wounds regress or recur and the patient is to follow up with him in 2 months or sooner if things worsen. Wound care - Moistened Jayna covered with gauze. Wear compression stockings with and MATT wrap over the the right compression stocking. Today he denies fever, chills, nausea and vomiting. He states he has a good appetite. Progress of Wound: Right leg ulcer is smaller in size. His wound bed is beefy pink. His edema is well controlled. Objective Data Objective Data Vital Signs: Vital Signs Temp Pulse Resp BP O2 Del Method 97.3 F L 80 16 141/82 H Room Air 06/23/22 13:45 07/07/22 13:20 07/07/22 13:20 07/07/22 13:20 07/07/22 13:20 Oxygen Delivery Method Room Air Charges/Coding Procedures Integumentary 111xxx-113xx: 09095 Ani subq tissue 20 sq cm/< Debridement Note Debridement Note Wound debrided: Medial leg ulcer Laterality: Right Type of Debridement: Excisional debridement Anesthesia Used: 5% Lidocaine Gel Depth: Down to and including healthy tissue and in the subcutaneous layer Percentage of wound debrided: 100 Instrument Used: 3mm curette Tissue Removed: Devitalized tissue and slough Severity: Fat Layer Exposed Amount of bleeding with debridement: Mild Bleeding Controlled with: Pressure and Compression and gauze Patient tolerated procedure: Patient tolerated procedure well Post-Debridement Measurements and Additional Note: Post-Debridement Measurements/Treatment - Nurse 1 - General Ulcer Assessment Start: 06/23/22 13:45 Freq: Status: Active Protocol: GREGORY Activity Type Activity Date Activity User E-sign Co-sign Detail Recorded Client Recorded Date Recorded By Document 06/23/22 13:45 [id number] 06/23/22 14:02 Document 07/07/22 13:20 [facility] [id number] 07/07/22 13:31 [facility] 06/23/22 07/07/22 13:45 13:20 - Today's Visit Information Type of service Follow-up Visit Follow-up Visit (Physician/COMPUTER AIDED DESIGN TECHNICIAN (Physician/COMPUTER AIDED DESIGN TECHNICIAN ) ) Arrival Mode Ambulatory Wheelchair Transfer Assistance None None Accompanied by Patient Identification Verified (Name & Yes Yes ) Patient Requires Transmission-Based No No Precautions Safety Precautions Fall Prevention Vital Signs Temperature (97.8 F-99.1 F) 97.3 F L Temperature Source Temporal Pulse Rate (60-100) 81 80 Pulse Location Monitor Monitor Respiratory Rate (12-18) 16 16 Respiratory rate source Observation Observation Oxygen Delivery Method Room Air Room Air Blood Pressure (90/60-120/80) 152/78 H 141/82 H Blood Pressure Mean (mm Hg) 102 101 Source Monitor Monitor Position Sitting Sitting Blood Pressure Location Right Arm Right Forearm History Since Last Visit- (Skip if this is Patient's initial visit) Have you changed medications since your No No last visit? Any new allergies or adverse reactions No No Had a fall/change in ADL's that may No No increase risk of falls Signs or symptoms of abuse and/or No No neglect since last visit Have you been in the hospital since your No No last visit? Has dressing in place as prescribed Yes Yes Has compression in place as prescribed Yes Yes Has offloadiing in place as prescribed N/A N/A Experienced any changes in pain level or No No management Left Footwear Regular Shoe Custom Shoe Right Footwear Regular Shoe Custom Shoe Pain Scale: 0-10 Numeric Is Patient Pain Free? Yes Yes WC - Nurse 1 - General Ulcer Measurement Start: 06/23/22 13:45 Freq: Status: Active Protocol: Activity Type Activity Date Activity User E-sign Co-sign Detail Recorded Client Recorded Date Recorded By Document 06/23/22 13:45 MW [id number] 06/23/22 14:02 MW Document 07/07/22 13:20 BMF [id number] 07/07/22 13:31 BMF 06/23/22 07/07/22 13:45 13:20 Wound Center Nurse 1 #2 RIGHT medial SAHA -Combined with other wound No No -Current Size (cm) - Length 1.3 0.5 -Current Size (cm) - Width 0.8 0.3 -Current Size (cm) - Depth 0.1 0.1 -Total Square Cm 1.04 0.15 -Date of Last Picture (Recall this 06/23/22 07/07/22 field) -Photo Taken Yes Yes -Epithelialization Small 1-33% Small 1-33% -Tunneling No No -Undermining/Tunneling No No -Circular Undermining No No -Exudate Amt Medium Small -Exudate Type Serosanguineous Serosanguineous -Wound Margin Flat & Intact Distinct, Outline Attached -Granulation Amt Large (67-100%) Large (67-100%) -Granulation Quality Red Red -Slough/Fibrin Yes Yes -Necrosis Amt Small (1-33%) Small (1-33%) -Necrotic Tissue Type Adherent Slough Adherent Slough -Structure Exposed Fat Layer Exposed -Texture (Taylor-wound Skin Appearance) Assessed, Assessed, Localized Edema Scarring ,Scarring -Moisture (Taylor-wound Skin Appearance) Assessed, Assessed Maceration -Color (Taylor-wound Skin Appearance) Assessed Assessed -Temperature (Taylor-wound Skin No Abnormality No Abnormality Appearance) (Pt Warm) (Pt Warm) -Tenderness on Palpation (Taylor-wound No No Skin Appearance) -Ulcer Cleansing Soap and Water Rinsed/ Irrigated with Saline -Foul Odor after Cleansing No No -Anesthetic Used 5% Lidocaine 5% Lidocaine Gel Gel Lower Limb Edema Present Yes Yes Right Calf (cm) 41.0 43 Right Ankle (cm) 23.4 23 - Nurse 2 - General Ulcer CM Notes Start: 06/23/22 13:45 Freq: Status: Active Protocol: Activity Type Activity Date Activity User E-sign Co-sign Detail Recorded Client Recorded Date Recorded By Document 06/23/22 14:15 [id number] 06/23/22 14:18 Document 07/07/22 14:04 [id number] 07/07/22 14:06 06/23/22 07/07/22 14:15 14:04 Wound Center Nurse 2 #2 RIGHT medial SAHA -Time 14:15 14:04 -Correct Patient Yes Yes -Correct Side, Site, Position Yes Yes -Correct Procedure Yes Yes -Procedure Performed Yes Yes -Type of Procedure Debridement Debridement -Clinical Debridement Subcutaneous Subcutaneous -Tissue Removed Subcutaneous Subcutaneous -Post Debridement (cm) - Length 1.3 0.7 -Post Debridement (cm) - Width 0.9 0.6 -Post Debridement (cm) - Depth 0.1 0.1 -Total Square (Post) (cm) 1.17 0.42 -Area of Debridement (cm) - Length 1.3 0.7 -Area of Debridement (cm) - Width 0.9 0.6 -Total Square (Area) (cm) 1.17 0.42 -Tunneling No No -Undermining/Tunneling No No -Circular Undermining No No -Wound/Ulcer Outcome Not Healed Not Healed -Ulcer Cleansing Rinsed/ Rinsed/ Irrigated with Irrigated with Saline Saline -Foul Odor after Cleansing No No -Bioengineered Tissue No No -Bleeding Controlled with Pressure Pressure -Treatment Response Procedure Procedure Tolerated Well Tolerated Well -Offloading No No -Debridement - Subq, 1st 20sq cm Yes Yes Pain Scale: 0-10 Numeric Is Patient Pain Free? Yes Yes - Nurse 3 - General Ulcer D/C NN Start: 06/23/22 13:45 Freq: Status: Active Protocol: Activity Type Activity Date Activity User E-sign Co-sign Detail Recorded Client Recorded Date Recorded By Document 06/23/22 14:35 [facility] [id number] 06/23/22 14:36 [facility] Document 07/07/22 14:17 [facility] [id number] 07/07/22 14:18 [facility] 06/23/22 07/07/22 14:35 14:17 Wound Care Nurse 3 #2 RIGHT medial SAHA -Ulcer Cleansing Rinsed/ Rinsed/ Irrigated with Irrigated with Saline Saline -Foul Odor after Cleansing No No -Primary Dressing Applied Promogran Jayna Matter -Other Dressing DRSG PER MW RN hydrogel -Primary Dressing Covered/Secured with Dry Gauze & Dry Gauze & Roll Gauze, Roll Gauze, Secured with Secured with Tape Tape -Promogran Jayna Matter 1 Right -Other PTS OWN pts own COMPRESSION AND compression and MATT APPLIED matt applied; PER MW RN refuses matt over foot Treatment Response Procedure Procedure Tolerated Well Tolerated Well Pain Scale: 0-10 Numeric Is Patient Pain Free? Yes Yes WC - Visit Discharge Discharge Condition Stable Stable Ambulatory Status Wheelchair Wheelchair Transportation Private Auto Private Auto Accompanied by Assessment/Plan Assessment/Plan (1) Ulcer of right lower extremity with fat layer exposed: CODE(S): L97.912 - Non-pressure chronic ulcer of unspecified part of right lower leg with fat layer exposed (2) Wound of right lower extremity: CODE(S): S81.801A - Unspecified open wound, right lower leg, initial encounter (3) Edema of both lower extremities: CODE(S): R60.0 - Localized edema (4) Polyneuropathy: CODE(S): G62.9 - Polyneuropathy, unspecified PLAN: Plan Patient was evaluated at the wound healing center and a subcutaneous debridement was performed as documented. Wound care - Wash ulcer with soap and water daily and pat dry. Place Moistened Jayna to the right anterior leg ulcer and cover with [place] SAP dressing daily. Massage the healed right medial leg ulcer with lotion daily to help soften the scarring. Compression - Continue compression socks with MATT wraps as previously have been applying, on the right leg place MATT wrap over the compression stocking. Wound culture obtained on 03/26/22, which was positive for Staphylococcus aureus.? He completed Doxycycline. Vascular studies obtained today, 05/13/22 results noted in HPI. He saw Dr. Pang 05/28/22 for evaluation and will continue to monitor and will have him follow up in 2 months. He would benefit from an advanced wound healing product such as Epifix to help expedite his wound healing. We applied for approval, but the patient would like to continue conservative treatment at this time since his ulcer continues to make progress. Follow up two weeks, per patient request.
[2022-07-21 13:39] VITALS: BP 149/91; PULSE 88; RESP 16; TEMP 36.4
--- NOTE | 2022-07-21 15:24 | PCM.WC.PN ---
History of Present Illness Date of Service: 07/21/22 Chief Complaint: Non healing right leg ulcer History of Wound: Patient is 71 year old male who has had a non healing wound on his right anterior leg. He has had this ulcer for approximately 9 months. He has been cleaning it daily with hydrogen peroxide and then placing antibiotic ointment. He has issues with bilateral lower extremity edema. He states he wears compression socks and an KRISH wrap to help his chronic edema. He does sleep in a recliner. He has a history of spinal stenosis with surgeries 12/05, 10/08, and 02/09 and hypothyroidism and polyneuropathy from the back pain, and also has lower extremity leg weakness from his back pain. Obtained a wound culture on 03/26/22 which was positive for Staphylococcus aureus and he was treated Doxycycline. Venous studies obtained 05/13/22 which showed Chronic deep vein thrombosis is noted in the right tibio-peroneal trunk. Chronic superficial vein thrombosis is noted in the left greater saphenous vein. The right greater saphenous vein demonstrates valvular incompetence below the knee. The right accessory saphenous vein demonstrates valvular incompetence. The left saphenofemoral junction, greater saphenous vein, and accessory saphenous vein demonstrate valvular incompetence. Arterial studies obtained on 05/13/22 show Right SINDY 1.48 and Left SINDY 1.46 with Dopppler/PVR waveforms normal at rest bilaterally. He saw Dr. Pang on 05/28/22 and he states that the patient's wounds are improving with compression, he will hold further imaging/intervention unless wounds regress or recur and the patient is to follow up with him in 2 months or sooner if things worsen. Wound care - Moistened Jayna covered with gauze. Wear compression stockings with and KRISH wrap over the the right compression stocking. Today he denies fever, chills, nausea and vomiting. He states he has a good appetite. Progress of Wound: Right leg ulcer is now a cluster due to multiple areas that were caused from removing tape. Objective Data Objective Data Vital Signs: Vital Signs Temp Pulse Resp BP O2 Del Method 97.5 F L 88 16 149/91 H Room Air 07/21/22 13:39 07/21/22 13:39 07/21/22 13:39 07/21/22 13:39 07/21/22 13:39 Oxygen Delivery Method Room Air Charges/Coding Procedures Integumentary 111xxx-113xx: 37089 Ani subq tissue 20 sq cm/< Add On Codes: 87157 Ani subq tissue add-on (x2) Debridement Note Debridement Note Wound debrided: Medial leg ulcer Laterality: Right Type of Debridement: Excisional debridement Anesthesia Used: 5% Lidocaine Gel Depth: Down to and including healthy tissue and in the subcutaneous layer Percentage of wound debrided: 100 Instrument Used: 3mm curette Tissue Removed: Devitalized tissue and slough Severity: Fat Layer Exposed Amount of bleeding with debridement: Mild Bleeding Controlled with: Pressure and Compression and gauze Patient tolerated procedure: Patient tolerated procedure well Post-Debridement Measurements and Additional Note: Post-Debridement Measurements/Treatment - Nurse 1 - General Ulcer Assessment Start: 06/23/22 13:45 Freq: Status: Active Protocol: GREGORY Activity Type Activity Date Activity User E-sign Co-sign Detail Recorded Client Recorded Date Recorded By Document 06/23/22 13:45 [id number] 06/23/22 14:02 Document 07/07/22 13:20 [facility] [id number] 07/07/22 13:31 [facility] Document 07/21/22 13:39 [facility] [id number] 07/21/22 13:49 [facility] 06/23/22 07/07/22 07/21/22 13:45 13:20 13:39 - Today's Visit Information Type of service Follow-up Visit Follow-up Visit Follow-up Visit (Physician/FIRST COOK (Physician/FIRST COOK (Physician/FIRST COOK ) ) ) Arrival Mode Ambulatory Wheelchair Wheelchair Transfer Assistance None None None Accompanied by Patient Identification Verified (Name & Yes Yes Yes ) Patient Requires Transmission-Based No No No Precautions Safety Precautions Fall Prevention Vital Signs Temperature (97.8 F-99.1 F) 97.3 F L 97.5 F L Temperature Source Temporal Temporal Pulse Rate (60-100) 81 80 88 Pulse Location Monitor Monitor Monitor Respiratory Rate (12-18) 16 16 16 Respiratory rate source Observation Observation Observation Oxygen Delivery Method Room Air Room Air Room Air Blood Pressure (90/60-120/80) 152/78 H 141/82 H 149/91 H Blood Pressure Mean (mm Hg) 102 101 110 Source Monitor Monitor Monitor Position Sitting Sitting Sitting Blood Pressure Location Right Arm Right Forearm Left Arm History Since Last Visit- (Skip if this is Patient's initial visit) Have you changed medications since your No No No last visit? Any new allergies or adverse reactions No No No Had a fall/change in ADL's that may No No No increase risk of falls Signs or symptoms of abuse and/or No No No neglect since last visit Have you been in the hospital since your No No No last visit? Has dressing in place as prescribed Yes Yes Yes Has compression in place as prescribed Yes Yes Yes Has offloadiing in place as prescribed N/A N/A N/A Experienced any changes in pain level or No No No management Left Footwear Regular Shoe Custom Shoe Custom Shoe Right Footwear Regular Shoe Custom Shoe Custom Shoe Pain Scale: 0-10 Numeric Is Patient Pain Free? Yes Yes Yes WC - Nurse 1 - General Ulcer Measurement Start: 06/23/22 13:45 Freq: Status: Active Protocol: Activity Type Activity Date Activity User E-sign Co-sign Detail Recorded Client Recorded Date Recorded By Document 06/23/22 13:45 [id number] 06/23/22 14:02 Document 07/07/22 13:20 BM [id number] 07/07/22 13:31 BMF Document 07/21/22 13:39 [facility] [id number] 07/21/22 13:49 BM 06/23/22 07/07/22 07/21/22 13:45 13:20 13:39 Wound Center Nurse 1 #3- R MED HOROWITZ CLUSTER -Combined with other wound No -Current Size (cm) - Length 6.7 -Current Size (cm) - Width 6.7 -Current Size (cm) - Depth 0.1 -Total Square Cm 44.89 -Date of Last Picture (Recall this 07/21/22 field) -Photo Taken Yes -Epithelialization None Present -Tunneling No -Undermining/Tunneling No -Circular Undermining No -Exudate Amt Medium -Exudate Type Sanguineous -Wound Margin Distinct, Outline Attached -Granulation Amt Large (67-100%) -Granulation Quality Red -Slough/Fibrin No -Necrosis Amt None Present (0 %) -Texture (Taylor-wound Skin Appearance) Assessed, Scarring -Moisture (Taylor-wound Skin Appearance) Assessed -Color (Taylor-wound Skin Appearance) Assessed, Erythema -Temperature (Taylor-wound Skin No Abnormality Appearance) (Pt Warm) -Tenderness on Palpation (Taylor-wound No Skin Appearance) -Ulcer Cleansing Rinsed/ Irrigated with Saline -Foul Odor after Cleansing No -Anesthetic Used 5% Lidocaine Gel #2 RIGHT anterior horowitz cluster -Combined with other wound No No No -Current Size (cm) - Length 1.3 0.5 0.8 -Current Size (cm) - Width 0.8 0.3 0.6 -Current Size (cm) - Depth 0.1 0.1 0.1 -Total Square Cm 1.04 0.15 0.48 -Date of Last Picture (Recall this 06/23/22 07/07/22 07/21/22 field) -Photo Taken Yes Yes Yes -Epithelialization Small 1-33% Small 1-33% None Present -Tunneling No No No -Undermining/Tunneling No No No -Circular Undermining No No No -Exudate Amt Medium Small Medium -Exudate Type Serosanguineous Serosanguineous Serosanguineous -Wound Margin Flat & Intact Distinct, Distinct, Outline Outline Attached Attached -Granulation Amt Large (67-100%) Large (67-100%) Large (67-100%) -Granulation Quality Red Red Red -Slough/Fibrin Yes Yes No -Necrosis Amt Small (1-33%) Small (1-33%) None Present (0 %) -Necrotic Tissue Type Adherent Slough Adherent Slough -Structure Exposed Fat Layer Exposed -Texture (Taylor-wound Skin Appearance) Assessed, Assessed, Assessed, Localized Edema Scarring Scarring ,Scarring -Moisture (Taylor-wound Skin Appearance) Assessed, Assessed Assessed Maceration -Color (Taylor-wound Skin Appearance) Assessed Assessed Assessed -Temperature (Taylor-wound Skin No Abnormality No Abnormality No Abnormality Appearance) (Pt Warm) (Pt Warm) (Pt Warm) -Tenderness on Palpation (Taylor-wound No No No Skin Appearance) -Ulcer Cleansing Soap and Water Rinsed/ Rinsed/ Irrigated with Irrigated with Saline Saline -Foul Odor after Cleansing No No No -Anesthetic Used 5% Lidocaine 5% Lidocaine 5% Lidocaine Gel Gel Gel Lower Limb Edema Present Yes Yes Yes Right Calf (cm) 41.0 43 42.1 Right Ankle (cm) 23.4 23 23.9 - Nurse 2 - General Ulcer CM Notes Start: 06/23/22 13:45 Freq: Status: Active Protocol: Activity Type Activity Date Activity User E-sign Co-sign Detail Recorded Client Recorded Date Recorded By Document 06/23/22 14:15 [id number] 06/23/22 14:18 Document 07/07/22 14:04 [id number] 07/07/22 14:06 Document 07/21/22 14:23 [id number] 07/21/22 14:29 06/23/22 07/07/22 07/21/22 14:15 14:04 14:23 Wound Center Nurse 2 #2 RIGHT anterior horowitz cluster -Time 14:15 14:04 14:26 -Correct Patient Yes Yes Yes -Correct Side, Site, Position Yes Yes Yes -Correct Procedure Yes Yes Yes -Procedure Performed Yes Yes Yes -Type of Procedure Debridement Debridement Debridement -Clinical Debridement Subcutaneous Subcutaneous Subcutaneous -Tissue Removed Subcutaneous Subcutaneous Subcutaneous -Post Debridement (cm) - Length 1.3 0.7 7.0 -Post Debridement (cm) - Width 0.9 0.6 7.4 -Post Debridement (cm) - Depth 0.1 0.1 0.1 -Total Square (Post) (cm) 1.17 0.42 51.80 -Area of Debridement (cm) - Length 1.3 0.7 7.0 -Area of Debridement (cm) - Width 0.9 0.6 7.4 -Total Square (Area) (cm) 1.17 0.42 51.80 -Tunneling No No No -Undermining/Tunneling No No No -Circular Undermining No No No -Wound/Ulcer Outcome Not Healed Not Healed Not Healed -Ulcer Cleansing Rinsed/ Rinsed/ Rinsed/ Irrigated with Irrigated with Irrigated with Saline Saline Saline -Foul Odor after Cleansing No No No -Bioengineered Tissue No No No -Bleeding Controlled with Pressure Pressure Pressure -Treatment Response Procedure Procedure Procedure Tolerated Well Tolerated Well Tolerated Well -Offloading No No No -Debridement - Subq, 1st 20sq cm Yes Yes Yes -Debridement, SubQ, ea addt'l 20sq cm 2 or part thereof Pain Scale: 0-10 Numeric Is Patient Pain Free? Yes Yes Yes WC - Nurse 3 - General Ulcer D/C NN Start: 06/23/22 13:45 Freq: Status: Active Protocol: Activity Type Activity Date Activity User E-sign Co-sign Detail Recorded Client Recorded Date Recorded By Document 06/23/22 14:35 [facility] [id number] 06/23/22 14:36 [facility] Document 07/07/22 14:17 [facility] [id number] 07/07/22 14:18 [facility] Document 07/21/22 14:52 [id number] 07/21/22 14:52 06/23/22 07/07/22 07/21/22 14:35 14:17 14:52 Wound Care Nurse 3 #2 RIGHT anterior horowitz cluster -Ulcer Cleansing Rinsed/ Rinsed/ Rinsed/ Irrigated with Irrigated with Irrigated with Saline Saline Saline -Foul Odor after Cleansing No No No -Negative Pressure Wound Therapy N/A -Primary Dressing Applied Promogran C Hydrogel ($), Jayna Matter NonAdherent Contact Layer -Other Dressing DRSG PER MW RN hydrogel -Primary Dressing Covered/Secured with Dry Gauze & Dry Gauze & Dry Gauze & Roll Gauze, Roll Gauze, Roll Gauze, Secured with Secured with Secured with Tape Tape Tape -Promogran Jayna Matter 1 Right -Lotion applied to leg before No compression wrap -Compression Wrap Krish Wrap -Stockings Yes -Other PTS OWN pts own COMPRESSION AND compression and KRISH APPLIED krish applied; PER MW RN refuses krish over foot Treatment Response Procedure Procedure Procedure Tolerated Well Tolerated Well Tolerated Well Pain Scale: 0-10 Numeric Is Patient Pain Free? Yes Yes Yes Teaching: Wound Center Dressing Your Wound -Person Taught Patient,Family -Teaching Method Discussion, Demonstration -Response to teaching Verbalize understanding WC - Visit Discharge Discharge Condition Stable Stable Stable Ambulatory Status Wheelchair Wheelchair Ambulatory Transportation Private Auto Private Auto Private Auto Accompanied by Medication Reconcilliation completed & No provided to patient/care provider Clinical Summary of Care Provided Yes Assessment/Plan Assessment/Plan (1) Ulcer of right lower extremity with fat layer exposed: CODE(S): L97.912 - Non-pressure chronic ulcer of unspecified part of right lower leg with fat layer exposed (2) Wound of right lower extremity: CODE(S): S81.801A - Unspecified open wound, right lower leg, initial encounter (3) Edema of both lower extremities: CODE(S): R60.0 - Localized edema (4) Polyneuropathy: CODE(S): G62.9 - Polyneuropathy, unspecified PLAN: Plan Patient was evaluated at the wound healing center. Wound care - Wash ulcer with soap and water daily and pat dry. Place Collagen Hydrogel covered with adaptic then wrap with conforming gauze to the right anterior leg ulcer cluster daily. Massage the healed right medial leg ulcer with lotion daily to help soften the scarring. Compression - Continue compression socks with KRISH wraps as previously have been applying, on the right leg place KIRSH wrap over the compression stocking. Wound culture obtained on 03/26/22, which was positive for Staphylococcus aureus.? He completed Doxycycline. Vascular studies obtained today, 05/13/22 results noted in HPI. He saw Dr. Pang 05/28/22 for evaluation and will continue to monitor and will have him follow up in 2 months. He would benefit from an advanced wound healing product such as Epifix to help expedite his wound healing. We applied for approval, but the patient would like to continue conservative treatment at this time since his ulcer continues to make progress. Follow up two weeks, per patient request.
== END 2022-07-22 23:59 | disposition home or self-care (01) ==
LOC: WC 13:45
PROVIDERS: PCP Family Medicine; Referring Provider Nurse Practitioner Family; Visit Provider Nurse Practitioner Family
DX: L97.912 Non-pressure chronic ulcer of unspecified part of right lower leg with fat layer exposed (principal); R60.0 Localized edema; M62.81 Muscle weakness (generalized); G62.9 Polyneuropathy, unspecified; I82.812 Embolism and thrombosis of superficial veins of left lower extremity; M54.9 Dorsalgia, unspecified
CPT/HCPCS: 11042; 11045

== ENCOUNTER 2022-08-04 13:03 | Outpatient (RCR) | payer MEDICARE, SELFPAY ==
[2022-07-23 00:29] VITALS: BP 149/91; PULSE 88; RESP 16; TEMP 36.4
[2022-08-04 13:19] VITALS: BP 131/83; PULSE 78; RESP 16; TEMP 36.1
--- NOTE | 2022-08-04 16:06 | PCM.WC.PN ---
History of Present Illness Date of Service: 08/04/22 Chief Complaint: Non healing right leg ulcer History of Wound: Patient is 71 year old male who has had a non healing wound on his right anterior leg. He has had this ulcer for approximately 9 months. He has been cleaning it daily with hydrogen peroxide and then placing antibiotic ointment. He has issues with bilateral lower extremity edema. He states he wears compression socks and an MATT wrap to help his chronic edema. He does sleep in a recliner. He has a history of spinal stenosis with surgeries 12/05, 10/08, and 02/09 and hypothyroidism and polyneuropathy from the back pain, and also has lower extremity leg weakness from his back pain. Obtained a wound culture on 03/26/22 which was positive for Staphylococcus aureus and he was treated Doxycycline. Venous studies obtained 05/13/22 which showed Chronic deep vein thrombosis is noted in the right tibio-peroneal trunk. Chronic superficial vein thrombosis is noted in the left greater saphenous vein. The right greater saphenous vein demonstrates valvular incompetence below the knee. The right accessory saphenous vein demonstrates valvular incompetence. The left saphenofemoral junction, greater saphenous vein, and accessory saphenous vein demonstrate valvular incompetence. Arterial studies obtained on 05/13/22 show Right SINDY 1.48 and Left SINDY 1.46 with Dopppler/PVR waveforms normal at rest bilaterally. He saw Dr. Pang on 05/28/22 and he states that the patient's wounds are improving with compression, he will hold further imaging/intervention unless wounds regress or recur and the patient is to follow up with him in 2 months or sooner if things worsen. Wound care - Collagen hydrogel covered with [place] SAP. Wear compression stockings with and MATT wrap over the the right compression stocking. Today he denies fever, chills, nausea and vomiting. He states he has a good appetite. Progress of Wound: Right leg original ulcer is healed. The right upper leg skin tear is smaller. He has new skin tear on his right lateral leg from a dressing that he purchased on line. Objective Data Objective Data Vital Signs: Vital Signs Temp Pulse Resp BP O2 Del Method 96.9 F L 78 16 131/83 H Room Air 08/04/22 13:19 08/04/22 13:19 08/04/22 13:19 08/04/22 13:19 08/04/22 13:19 Oxygen Delivery Method Room Air Charges/Coding Procedures Integumentary 111xxx-113xx: 69193 Ani subq tissue 20 sq cm/< Debridement Note Debridement Note Wound debrided: upper leg skin tear and right medial leg skin tear Laterality: Right Wound Grade/Stage: Stage II Type of Debridement: Excisional debridement Anesthesia Used: 5% Lidocaine Gel Depth: Down to and including healthy tissue and in the subcutaneous layer Percentage of wound debrided: 100 Instrument Used: 3mm curette Tissue Removed: Devitalized tissue and slough Severity: Limited To Skin Breakdown Amount of bleeding with debridement: Mild Bleeding Controlled with: Pressure and Compression and gauze Patient tolerated procedure: Patient tolerated procedure well Post-Debridement Measurements and Additional Note: Post-Debridement Measurements/Treatment - Nurse 1 - General Ulcer Assessment Start: 08/04/22 13:16 Freq: Status: Active Protocol: GREGORY Activity Type Activity Date Activity User E-sign Co-sign Detail Recorded Client Recorded Date Recorded By Document 08/04/22 13:19 [id number] 08/04/22 13:29 08/04/22 13:19 WC - Today's Visit Information Type of service Initial Visit Arrival Mode Wheelchair Transfer Assistance None Accompanied by Patient Identification Verified (Name & Yes ) Patient Requires Transmission-Based No Precautions Safety Precautions Fall Prevention Vital Signs Temperature (97.8 F-99.1 F) 96.9 F L Temperature Source Temporal Pulse Rate (60-100) 78 Pulse Location Monitor Respiratory Rate (12-18) 16 Respiratory rate source Observation Oxygen Delivery Method Room Air Blood Pressure (90/60-120/80) 131/83 H Blood Pressure Mean (mm Hg) 99 Source Monitor Position Sitting Blood Pressure Location Right Arm History Since Last Visit- (Skip if this is Patient's initial visit) Have you changed medications since your No last visit? Any new allergies or adverse reactions No Had a fall/change in ADL's that may No increase risk of falls Signs or symptoms of abuse and/or No neglect since last visit Have you been in the hospital since your No last visit? Has dressing in place as prescribed Yes Has compression in place as prescribed Yes Has offloadiing in place as prescribed N/A Experienced any changes in pain level or No management Left Footwear Regular Shoe Right Footwear Regular Shoe Pain Scale: 0-10 Numeric Is Patient Pain Free? Yes WC - Nurse 1 - General Ulcer Measurement Start: 08/04/22 13:16 Freq: Status: Active Protocol: Activity Type Activity Date Activity User E-sign Co-sign Detail Recorded Client Recorded Date Recorded By Document 08/04/22 13:19 MW [id number] 08/04/22 13:29 MW 08/04/22 13:19 Wound Center Nurse 1 #2 RIGHT anterior horowitz cluster -Combined with other wound No -Current Size (cm) - Length 2.0 -Current Size (cm) - Width 2.5 -Current Size (cm) - Depth 0.1 -Total Square Cm 5.00 -Date of Last Picture (Recall this 08/04/22 field) -Photo Taken Yes -Epithelialization None Present -Tunneling No -Undermining/Tunneling No -Circular Undermining No -Exudate Amt Small -Exudate Type Serosanguineous -Wound Margin Flat & Intact -Granulation Amt Large (67-100%) -Granulation Quality Red -Slough/Fibrin Yes -Necrosis Amt Small (1-33%) -Necrotic Tissue Type Adherent Slough -Structure Exposed N/A -Texture (Taylor-wound Skin Appearance) Assessed, Localized Edema ,Scarring -Moisture (Taylor-wound Skin Appearance) No Abnormality, Assessed -Color (Talyor-wound Skin Appearance) Assessed, Hemosiderin Staining -Temperature (Taylor-wound Skin No Abnormality Appearance) (Pt Warm) -Tenderness on Palpation (Taylor-wound No Skin Appearance) -Ulcer Cleansing Rinsed/ Irrigated with Saline -Foul Odor after Cleansing No -Anesthetic Used 5% Lidocaine Gel Lower Limb Edema Present Yes Right Calf (cm) 44.0 Right Ankle (cm) 22.5 WC - Nurse 2 - General Ulcer CM Notes Start: 08/04/22 13:16 Freq: Status: Active Protocol: Activity Type Activity Date Activity User E-sign Co-sign Detail Recorded Client Recorded Date Recorded By Document 08/04/22 13:49 [id number] 08/04/22 13:52 [facility] 08/04/22 13:49 Wound Center Nurse 2 #2 RIGHT anterior horowitz cluster -Time 13:50 -Correct Patient Yes -Correct Side, Site, Position Yes -Correct Procedure Yes -Procedure Performed Yes -Type of Procedure Debridement -Clinical Debridement Subcutaneous -Tissue Removed Subcutaneous -Post Debridement (cm) - Length 0.9 -Post Debridement (cm) - Width 2.7 -Post Debridement (cm) - Depth 0.1 -Total Square (Post) (cm) 2.43 -Area of Debridement (cm) - Length 0.9 -Area of Debridement (cm) - Width 2.7 -Total Square (Area) (cm) 2.43 -Tunneling No -Undermining/Tunneling No -Circular Undermining No -Wound/Ulcer Outcome Not Healed -Ulcer Cleansing Rinsed/ Irrigated with Saline -Foul Odor after Cleansing No -Bioengineered Tissue No -Bleeding Controlled with Pressure -Treatment Response Procedure Tolerated Well -Offloading No -Debridement - Subq, 1st 20sq cm Yes Pain Scale: 0-10 Numeric Is Patient Pain Free? Yes - Nurse 3 - General Ulcer D/C NN Start: 08/04/22 13:16 Freq: Status: Active Protocol: Activity Type Activity Date Activity User E-sign Co-sign Detail Recorded Client Recorded Date Recorded By Document 08/04/22 13:59 [facility] [id number] 08/04/22 14:00 [facility] 08/04/22 13:59 Wound Care Nurse 3 #2 RIGHT anterior horowitz cluster -Ulcer Cleansing Rinsed/ Irrigated with Saline -Foul Odor after Cleansing No -Primary Dressing Applied NonAdherent Contact Layer -Other Dressing HYDROGEL -Other Covering DRSG PER [employer] Treatment Response Procedure Tolerated Well Pain Scale: 0-10 Numeric Is Patient Pain Free? Yes - Visit Discharge Discharge Condition Stable Ambulatory Status Wheelchair Transportation Private Auto Accompanied by Assessment/Plan Assessment/Plan (1) Ulcer of right lower extremity with fat layer exposed: CODE(S): L97.912 - Non-pressure chronic ulcer of unspecified part of right lower leg with fat layer exposed (2) Wound of right lower extremity: CODE(S): S81.801A - Unspecified open wound, right lower leg, initial encounter (3) Edema of both lower extremities: CODE(S): R60.0 - Localized edema (4) Polyneuropathy: CODE(S): G62.9 - Polyneuropathy, unspecified (5) Tear of skin of multiple sites of right lower extremity: CODE(S): S81.811A - Laceration without foreign body, right lower leg, initial encounter QUALIFIERS: Encounter type: initial encounter Qualified Code(s): S81.811A - Laceration without foreign body, right lower leg, initial encounter PLAN: Plan Patient was evaluated at the wound healing center. Wound care - Wash ulcer with soap and water daily and pat dry. Place Collagen Hydrogel covered [place] SAP to the right upper anterior leg and right medial leg skin tears daily. Instructed to only use silicone tape or dressing with silicone to prevent further skin tears. Massage the healed ulcer with lotion daily to help soften the scarring. Compression - Continue compression socks with MATT wraps as previously have been applying, on the right leg place MATT wrap over the compression stocking. Wound culture obtained on 03/26/22, which was positive for Staphylococcus aureus.? He completed Doxycycline. Vascular studies obtained 05/13/22 results noted in HPI. He saw Dr. Pang 07/28/22 for evaluation and will continue to monitor and will have him follow up in 3 months. Follow up three weeks, per patient request.
== END 2022-08-22 23:59 | disposition home or self-care (01) ==
LOC: WC 13:03
PROVIDERS: PCP Family Medicine; Referring Provider Nurse Practitioner Family; Visit Provider Nurse Practitioner Family
DX: L97.912 Non-pressure chronic ulcer of unspecified part of right lower leg with fat layer exposed (principal); S81.811A Laceration without foreign body, right lower leg, initial encounter; M62.81 Muscle weakness (generalized); R60.0 Localized edema; G62.9 Polyneuropathy, unspecified; M54.9 Dorsalgia, unspecified
CPT/HCPCS: 11042

== ENCOUNTER 2022-09-01 13:06 | Outpatient (RCR) | payer MEDICARE, SELFPAY ==
[2022-08-23 00:24] VITALS: BP 131/83; PULSE 78; RESP 16; TEMP 36.1
[2022-09-01 13:21] VITALS: BP 140/79; PULSE 86; RESP 18; TEMP 36.3
--- NOTE | 2022-09-01 14:18 | PCM.WC.PN ---
History of Present Illness Date of Service: 09/01/22 Chief Complaint: Non healing right leg ulcer History of Wound: Patient is 71 year old male who has had a non healing wound on his right anterior leg. He has had this ulcer for approximately 9 months. He has been cleaning it daily with hydrogen peroxide and then placing antibiotic ointment. He has issues with bilateral lower extremity edema. He states he wears compression socks and an MATT wrap to help his chronic edema. He does sleep in a recliner. He has a history of spinal stenosis with surgeries 12/05, 10/08, and 02/09 and hypothyroidism and polyneuropathy from the back pain, and also has lower extremity leg weakness from his back pain. Obtained a wound culture on 03/26/22 which was positive for Staphylococcus aureus and he was treated Doxycycline. Venous studies obtained 05/13/22 which showed Chronic deep vein thrombosis is noted in the right tibio-peroneal trunk. Chronic superficial vein thrombosis is noted in the left greater saphenous vein. The right greater saphenous vein demonstrates valvular incompetence below the knee. The right accessory saphenous vein demonstrates valvular incompetence. The left saphenofemoral junction, greater saphenous vein, and accessory saphenous vein demonstrate valvular incompetence. Arterial studies obtained on 05/13/22 show Right SINDY 1.48 and Left SINDY 1.46 with Dopppler/PVR waveforms normal at rest bilaterally. He saw Dr. Pang on 05/28/22 and he states that the patient's wounds are improving with compression, he will hold further imaging/intervention unless wounds regress or recur and the patient is to follow up with him in 2 months or sooner if things worsen. Wound care - Collagen hydrogel covered with [place] SAP. Wear compression stockings with and MATT wrap over the the right compression stocking. Today he denies fever, chills, nausea and vomiting. He states he has a good appetite. Progress of Wound: Right leg ulcer and skin tears are all healed today. His edema is well controlled with his compression stockings and MATT wrap. Objective Data Objective Data Vital Signs: Vital Signs Temp Pulse Resp BP 97.4 F L 86 18 140/79 H 09/01/22 13:21 09/01/22 13:21 09/01/22 13:21 09/01/22 13:21 Charges/Coding Visit Charges Office Visits / Consults: [id number] OV L3 Est Physical Exam Const alert, oriented x3 and no apparent distress General Appearance: cooperative HEENT normocephalic Head and Scalp: atraumatic Neck full ROM Lymph Lymphatic: no lymphedema noted Resp normal respiratory effort Effort and Inspection: able to speak in complete sentences Cardio regular rate and regular rhythm GI non-tender Extremity normal capillary refill Skin Wound Narrative: Right leg ulcers and skin tears are healed today. Neuro oriented x3 and moves all extremities Psych mental status grossly normal and affect normal Appearance: well kempt Debridement Note Debridement Note No debridement was completed: No debridement was completed today Post-Debridement Measurements and Additional Note: Post-Debridement Measurements/Treatment WC - Nurse 1 - General Ulcer Assessment Start: 09/01/22 13:21 Freq: Status: Active Protocol: GREGORY Activity Type Activity Date Activity User E-sign Co-sign Detail Recorded Client Recorded Date Recorded By Document 09/01/22 13:21 DL [id number] 09/01/22 13:27 DL 09/01/22 13:21 WC - Today's Visit Information Type of service Follow-up Visit (Physician/[facility]ET[facility] ) Arrival Mode Wheelchair Transfer Assistance None Patient Identification Verified (Name & Yes ) Vital Signs Temperature (97.8 F-99.1 F) 97.4 F L Temperature Source Temporal Pulse Rate (60-100) 86 Pulse Location Monitor Respiratory Rate (12-18) 18 Respiratory rate source Observation Blood Pressure (90/60-120/80) 140/79 H Blood Pressure Mean (mm Hg) 99 Source Monitor History Since Last Visit- (Skip if this is Patient's initial visit) Have you changed medications since your No last visit? Any new allergies or adverse reactions No Had a fall/change in ADL's that may No increase risk of falls Signs or symptoms of abuse and/or No neglect since last visit Have you been in the hospital since your No last visit? Has dressing in place as prescribed No Has compression in place as prescribed Yes Has offloadiing in place as prescribed N/A Experienced any changes in pain level or Yes management Pain Scale: 0-10 Numeric Is Patient Pain Free? Yes LUIZ - Nurse 1 - General Ulcer Measurement Start: 09/01/22 13:21 Freq: Status: Active Protocol: Activity Type Activity Date Activity User E-sign Co-sign Detail Recorded Client Recorded Date Recorded By Document 09/01/22 13:21 DL [id number] 09/01/22 13:27 DL 09/01/22 13:21 Wound Center Nurse 1 #2 RIGHT anterior horowitz cluster -Current Size (cm) - Length 0 -Current Size (cm) - Width 0 -Current Size (cm) - Depth 0 -Total Square Cm 0 -Photo Taken Yes -Exudate Amt None Present -Wound Margin Flat & Intact -Granulation Amt Large (67-100%) -Granulation Quality Dobbins -Necrosis Amt None Present (0 %) -Structure Exposed N/A -Texture (Taylor-wound Skin Appearance) Scarring -Moisture (Taylor-wound Skin Appearance) No Abnormality -Color (Taylor-wound Skin Appearance) Hemosiderin Staining -Temperature (Taylor-wound Skin No Abnormality Appearance) (Pt Warm) -Tenderness on Palpation (Taylor-wound No Skin Appearance) -Ulcer Cleansing Not Cleansed -Foul Odor after Cleansing No Right Calf (cm) 38 Right Ankle (cm) 23 Assessment/Plan Assessment/Plan (1) Ulcer of right lower extremity with fat layer exposed: CODE(S): L97.912 - Non-pressure chronic ulcer of unspecified part of right lower leg with fat layer exposed (2) Wound of right lower extremity: CODE(S): S81.801A - Unspecified open wound, right lower leg, initial encounter (3) Edema of both lower extremities: CODE(S): R60.0 - Localized edema (4) Polyneuropathy: CODE(S): G62.9 - Polyneuropathy, unspecified (5) Tear of skin of multiple sites of right lower extremity: CODE(S): S81.811A - Laceration without foreign body, right lower leg, initial encounter QUALIFIERS: Encounter type: initial encounter Qualified Code(s): S81.811A - Laceration without foreign body, right lower leg, initial encounter PLAN: Plan Patient was evaluated at the wound healing center. Right leg ulcer and skin tears are all healed. Encouraged to continue to moisturize healed area and massage lotion daily to help soften scarring. Compression - Continue compression stockings with MATT wraps as previously have been applying, on the right leg place MATT wrap over the compression stocking. Wound culture obtained on 03/26/22, which was positive for Staphylococcus aureus.? He completed Doxycycline. Vascular studies obtained 05/13/22 results noted in HPI. He saw Dr. Pang 07/28/22 for evaluation and will continue to monitor and will have him follow up in 3 months. Follow up as needed.
== END 2022-09-01 16:09 | disposition home or self-care (01) ==
LOC: WC 13:06
PROVIDERS: PCP Family Medicine; Referring Provider Nurse Practitioner Family; Visit Provider Nurse Practitioner Family
DX: L97.912 Non-pressure chronic ulcer of unspecified part of right lower leg with fat layer exposed (principal); R60.0 Localized edema; M62.81 Muscle weakness (generalized); S81.811A Laceration without foreign body, right lower leg, initial encounter; G62.9 Polyneuropathy, unspecified
CPT/HCPCS: 99213; G0463

== ENCOUNTER → 2023-04-15 | Day surgery (SDC) | payer MEDICARE, SELFPAY ==
[2023-04-14 08:31] VITALS: BMI 29.9
[2023-04-15 07:11] LABS: Hemoglobin 13.9 g/dL (13.0-16.5); Mean Corp Hgb Conc 33.1 g/dL (32-36); Mean Corpuscular Volume 93.5 fL (80-94); Mean Platelet Vol. 9.1 fl (6.2-12.0); Platelet Count 297 K/mm3 (150-450); RBC Distribution Width CV 13.4 % (11.6-14.6); RBC Distribution Width SD 45.8 fl (35.1-43.9); Red Blood Count 4.49 M/mm3 (4.6-6.2); White Blood Count 9.7 K/mm3 (4.4-11.0)
[2023-04-15 07:25] LABS: Anion Gap 6 (5-15); BUN 21 mg/dL (7-18); BUN/Creat Ratio 42.4 RATIO (10-20); Calcium,Total 9.3 mg/dL (8.5-10.1); Chloride 99 mmol/L (98-107); EST Glomerular Filtration Rate 176 mL/min (>60); Est Glom Filt Rate - Afr Amer 212 mL/min (>60); Estimated Creatinine Clearance 71.12 ml/min; Glucose 90 mg/dL (74-106); Potassium 4.1 mmol/L (3.5-5.1); Sodium Level 133 mmol/L (136-145)
--- NOTE | 2023-04-15 08:54 | PCM.OPRPT ---
Report of Operation Date of Procedure: 04/15/23 Pre-Operative Diagnosis: Venous insufficiency with ulceration of the left lower extremity Post-Operative Diagnosis: Same Surgery/Procedure Performed:: Venogram of the inferior vena cava Intravascular ultrasound of the inferior vena cava, right common and external iliac veins, left common and external iliac veins Description of Surgical Findings:: Moderate compression of the right external iliac vein, 52%. No significant compression of the left iliac vein system. Surgeon: Brandt Pang Type of Anesthesia: Local and Sedation,Conscious Estimated Blood Loss (mL): 1 Description of Procedure: HPI: Patient is a 72-year-old male with recurrent venous ulcerations and chronic skin changes of the bilateral extremities. He had imaging that revealed reflux but given the severity and recurrence of his wounds central venous evaluation is warranted. He is taken now for venogram with intravascular ultrasound and possible invention. Description of procedure: Upon obtaining form consent and verification correct patient procedure site patient was taken to the [facility] where he was positioned prepped and draped in usual sterile fashion. Time was performed conscious sedation administered with Versed and fentanyl. Skin overlying the right common femoral was anesthetized 1% lidocaine and the vessel accessed under ultrasound guidance with a micropuncture needle wire. This then changed for micropuncture sheath through which injection ilio caval venogram was performed which revealed a area of mild stenosis in the external iliac vein. Bentson wire was advanced to the micropuncture sheath and micropuncture sheath exchanged for a 10 [place] sheath. Next skin overlying the left common femoral vein was anesthetized 1% lidocaine and the vessel accessed under ultrasound guidance with a micropuncture needle wire. This was then exchanged for micropuncture sheath through which injection ilio caval venogram was performed which revealed widening of the left common iliac vein. Bentson was then advanced and the micropuncture sheath exchanged for a 10 [place] sheath. Intravascular sound then advanced via the right femoral access sheath into the vena cava and recorded pullback of the IVC, right common iliac vein, right external iliac vein was performed. This revealed normal caliber noncompressed inferior vena cava, normal caliber and noncompressed common iliac vein, and a 52% compressed mid external iliac vein. The probe was then withdrawn and advanced via the left femoral access sheath and recorded pullback of the IVC, left common iliac vein, left external vein was performed. This revealed a dilated left common iliac vein with no significant compression, approximately 5% compression at the superior aspect of the vessel. The external iliac vein was small in caliber but not compressed. See no lesions that warranted intervention the wires were withdrawn and a silk suture U stitch placed at each of the access sites. The sutures were then secured and the sheath withdrawn followed by 5 minutes of manual pressure. Patient was then taken to recovery room for bedrest prior to discharge home.
== END | disposition home or self-care (01) ==
PROVIDERS: PCP Family Medicine; Referring Provider Surgery Trauma Surgery; Visit Provider Surgery Trauma Surgery
DX: I83.028 Varicose veins of left lower extremity with ulcer other part of lower leg (principal); L97.929 Non-pressure chronic ulcer of unspecified part of left lower leg with unspecified severity; L97.919 Non-pressure chronic ulcer of unspecified part of right lower leg with unspecified severity; I83.018 Varicose veins of right lower extremity with ulcer other part of lower leg; I87.2 Venous insufficiency (chronic) (peripheral); Z79.82 Long term (current) use of aspirin; Z79.890 Hormone replacement therapy; Z79.899 Other long term (current) drug therapy; E03.9 Hypothyroidism, unspecified; I87.1 Compression of vein
CPT/HCPCS: 36010; 36415; 37252; 37253; 75825; 76937; 80048; 85027; 99152; 99153; C1753; C1769; C1894; J7040; Q9967

== ENCOUNTER 2023-05-19 10:55 | Day surgery (SDC) | payer MEDICARE, SELFPAY ==
[2023-05-18 09:54] VITALS: BMI 29.9
[2023-05-19 11:27] LABS: Hematocrit 41.3 % (40-54); Hemoglobin 13.7 g/dL (13.0-16.5); Mean Corp Hgb Conc 33.2 g/dL (32-36); Mean Corpuscular Hgb 30.7 pg (27.0-32.0); Mean Corpuscular Volume 92.6 fL (80-94); Mean Platelet Vol. 9.4 fl (6.2-12.0); Platelet Count 326 K/mm3 (150-450); RBC Distribution Width CV 13.3 % (11.6-14.6); RBC Distribution Width SD 45.3 fl (35.1-43.9); Red Blood Count 4.46 M/mm3 (4.6-6.2); White Blood Count 9.3 K/mm3 (4.4-11.0)
[2023-05-19 11:33] LABS: Anion Gap 7 (5-15); BUN 16 mg/dL (7-18); BUN/Creat Ratio 34.5 RATIO (10-20); Calcium,Total 9.6 mg/dL (8.5-10.1); Chloride 97 mmol/L (98-107); Creatinine, Serum 0.46 mg/dL (0.70-1.30); EST Glomerular Filtration Rate 189 mL/min (>60); Est Glom Filt Rate - Afr Amer 229 mL/min (>60); Estimated Creatinine Clearance 71.12 ml/min; Glucose 95 mg/dL (74-106); Sodium Level 131 mmol/L (136-145)
--- NOTE | 2023-05-19 16:32 | OP.PCM_ITS ---
Report of Operation Date of Procedure: 05/19/23 Pre-Operative Diagnosis: venous insufficiency with ulceration, left lower extre mity Post-Operative Diagnosis: same Surgery/Procedure Performed:: RF ablation left great saphenous vein Surgeon: Brandt Pang Type of Anesthesia: Local and Sedation,Conscious Estimated Blood Loss (mL): 2
--- NOTE | 2023-05-19 16:32 | PCM.OPRPT ---
Report of Operation Date of Procedure: 05/19/23 Pre-Operative Diagnosis: venous insufficiency with ulceration, left lower extremity Post-Operative Diagnosis: same Surgery/Procedure Performed:: RF ablation left great saphenous vein Surgeon: Brandt Pang Type of Anesthesia: Local and Sedation,Conscious Estimated Blood Loss (mL): 2 Description of Procedure: HPI: Patient is a 72-year-old male with chronic recurrent venous ulcerations of the left lower extremity great saphenous vein reflux from the saphenofemoral junction to the medial malleolus. Given the extent of his reflux ideally he would be treated with chemical ablation of the entire length of the saphenous vein however insurance company refused to acknowledge chemical ablation as appropriate moderate therapy. Instead we will take him for a radiofrequency ablation of the great saphenous vein in the thigh. Description of procedure: Upon obtaining form consent and verification correct patient procedure site patient taken the [facility] [employer] where he was positioned prepped and draped in usual fashion. Time was performed conscious sedation ministered with Versed and fentanyl. The saphenous vein was evaluated with ultrasound and he was noted to have wall thickening in this chronic SVT of the saphenous vein at the knee. There was a 4 lm patent so in an effort to treat the maximal length of vessel we attempted to access the saphenous inferior to this chronic SVT. Skin overlying the saphenous vein was anesthetized 1% lidocaine the vessel accessed in retrograde fashion with a micropuncture needle wire we are unable to traverse the wire beyond the area of SVT despite multiple efforts to redirect. We then withdrew the wire and attempted to cross with a command 18 wire hoping that the hydrophilic tip would give us some better cross ability. We still were unable to traverse this area so the wire and needle withdrawn a minute pressure held. Next skin overlying the vein was anesthetized just above the knee and the vessel accessed with a micropuncture needle wire. This then exchanged for micropuncture sheath. Through the micropuncture sheath the RF ablation probe was advanced to the saphenofemoral junction and a longitudinal view obtained in order to withdraw the tip down to 2.5 cm inferior to the saphenofemoral junction. Next tumescent solution was injected by hand along the course of the saphenous vein from the access site up to the saphenofemoral junction. Once adequate tumescent solution was infused circumferentially around the saphenous vein and the ablation catheter our distance to saphenofemoral junction and then reconfirmed and the ablation probe activated along the entire length of the treatment zone. After completing the treatment length the ablation probe and sheath were withdrawn and manual pressure held for 5 minutes after which are satisfactory stasis. The saphenofemoral junction and common femoral vein were then assessed and found to be patent, compressible with no evidence of deep vein thrombosis. Dry sterile dressing, Kerlix, and Krish wrap were then applied the patient was taken recovery anticipated discharged home.
== END 2023-05-19 17:36 | disposition home or self-care (01) ==
PROVIDERS: PCP Family Medicine; Referring Provider Surgery Trauma Surgery; Visit Provider Surgery Trauma Surgery
DX: I87.2 Venous insufficiency (chronic) (peripheral) (principal); L97.929 Non-pressure chronic ulcer of unspecified part of left lower leg with unspecified severity; L97.919 Non-pressure chronic ulcer of unspecified part of right lower leg with unspecified severity; I83.019 Varicose veins of right lower extremity with ulcer of unspecified site; R60.0 Localized edema; Z79.01 Long term (current) use of anticoagulants; I10 Essential (primary) hypertension
CPT/HCPCS: 36415; 36475; 80048; 85027; 99152; 99153; C1769; C1888; C1894; J7040

== ENCOUNTER → 2023-05-26 | Outpatient (CLI) | payer MEDICARE, SELFPAY ==
--- NOTE | 2023-05-26 09:32 | VDLE_ITS ---
Reason For Study: LT GSV RF Ablation Procedure LEFT This is a venous duplex using B-mode, color CFV is compressible, spontaneous, phasic, flow and spectral Doppler. competent, and demonstrates normal Exam performed in department. augmentation. The exam was diagnostic. FV is compressible, spontaneous, phasic, competent and demonstrates normal augmentation. POP V is compressible, spontaneous, phasic, competent and demonstrates normal augmentation. T/P Trunk is compressible. PTV is compressible. LT PerV is compressible. RT GSV Junction to dist thigh is noncompressible with bright intraluminal echoes consistent with recent RF ablation procedure. GSV knee is partially compressible with intraluminal echoes consistent with chronic SVT. GSV from prox calf to ankle is compressible. VL/Venous Duplex US, Unilateral Interpretation Summary Deep veins of the left lower extremity are patent and compressible segmentally. There is no evidence of left lower extremity deep vein thrombosis. Occlusion of left great saphenous vein consistent with recent ablation. Distal thigh great saphenous with chronic thrombus visualized. Ordering Physician: Aurora Aceves Referring Physician: Channing Clement Performed By: Héctor Aceves RVT
== END | disposition home or self-care (01) ==
LOC: CVS 09:32
PROVIDERS: PCP Family Medicine; Referring Provider Physician Assistant; Visit Provider Physician Assistant
DX: I87.2 Venous insufficiency (chronic) (peripheral) (principal); R22.42 Localized swelling, mass and lump, left lower limb
CPT/HCPCS: 93971

== ENCOUNTER → 2023-06-09 | Outpatient (CLI) | payer MEDICARE, SELFPAY ==
[2023-06-09 13:46] LABS: Absolute Lymphocyte Count 1.82 X10^3/uL (0.83-4.51); Basophil# 0.03 X10^3/uL; Basophil% 0.3 % (0-1); Eosinophil# 0.14 X10^3/uL; Eosinophils% 1.4 % (0-5); Hematocrit 42.2 % (40-54); Hemoglobin 13.7 g/dL (13.0-16.5); Lymphocyte # 1.82 X10^3/ul (0.83-4.51); Lymphocyte % 18.8 % (19-41); Mean Corp Hgb Conc 32.5 g/dL (32-36); Mean Corpuscular Hgb 30.6 pg (27.0-32.0); Mean Corpuscular Volume 94.4 fL (80-94); Mean Platelet Vol. 9.7 fl (6.2-12.0); Monocyte# 0.64 X10^3/uL; Monocyte% 6.6 % (0-10); NRBC Flagged by Analyzer 0 % (0-5); Neutrophil # 7.01 X10^3/uL (2.7-7.7); Neutrophil % 72.6 % (47-70); Platelet Count 362 K/mm3 (150-450); RBC Distribution Width CV 13.7 % (11.6-14.6); RBC Distribution Width SD 47.8 fl (35.1-43.9); Red Blood Count 4.47 M/mm3 (4.6-6.2); White Blood Count 9.7 K/mm3 (4.4-11.0)
[2023-06-09 13:50] LABS: Color, Urine Yellow (Yellow); Glucose, Dipstick Normal (Normal); Ketone-Dipstick Negative (Negative); Leukocyte Esterase-Dipstick 500 /ul (Negative); Nitrite-Dipstick Positive (Negative); Occult Blood-Urine 25 /ul (Negative); Protein-Dipstick Negative (Negative); Specific Gravity, Urine 1.015 (1.002-1.030); Urine Bilirubin Dipstick Negative (Negative); Urine Clarity Clear (Clear); Urine Urobilinogen Normal (Normal)
[2023-06-09 14:37] LABS: ALB/GLOB Ratio 0.7 RATIO (0.9-2.4); AST(SGOT) 30 U/L (15-37); Alanine Aminotransfer ALT/SGPT 35 U/L (16-61); Albumin, Serum 3.4 g/dL (3.2-5.0); Alkaline Phosphatase 157 U/L (45-117); Anion Gap 8 (5-15); BUN 20 mg/dL (7-18); BUN/Creat Ratio 35.1 RATIO (10-20); Calcium,Total 9.3 mg/dL (8.5-10.1); Chloride 102 mmol/L (98-107); Creatinine, Serum 0.57 mg/dL (0.70-1.30); EST Glomerular Filtration Rate 149 mL/min (>60); Est Glom Filt Rate - Afr Amer 181 mL/min (>60); Globulin 4.7 g/dL (2.2-4.2); Glucose 94 mg/dL (74-106); Potassium 4.1 mmol/L (3.5-5.1); Protein, Total 8.1 g/dL (6.4-8.2); Sodium Level 135 mmol/L (136-145)
== END | disposition home or self-care (01) ==
PROVIDERS: PCP Family Medicine; Referring Provider Physician Assistant; Visit Provider Physician Assistant
DX: I83.019 Varicose veins of right lower extremity with ulcer of unspecified site (principal); L97.919 Non-pressure chronic ulcer of unspecified part of right lower leg with unspecified severity; R30.0 Dysuria; S81.811A Laceration without foreign body, right lower leg, initial encounter; X58.XXXA Exposure to other specified factors, initial encounter
CPT/HCPCS: 36415; 80053; 81002; 85025

== ENCOUNTER 2023-07-21 10:00 | Outpatient (RCR) | payer MEDICARE, SELFPAY ==
[2023-07-14 09:19] VITALS: BP 118/76; PULSE 93; RESP 18; TEMP 36.4; BMI 29.4
--- NOTE | 2023-07-14 10:03 | PCM.WC.HP ---
History of Present Illness Date of Service: 07/14/23 Chief Complaint: Non healing right leg ulcer History of Wound: Patient is 71 year old male who has had a non healing wound on his right anterior leg. He has had this ulcer for approximately 9 months. He has been cleaning it daily with hydrogen peroxide and then placing antibiotic ointment. He has issues with bilateral lower extremity edema. He states he wears compression socks and an MATT wrap to help his chronic edema. He does sleep in a recliner. He has a history of spinal stenosis with surgeries 12/05, 10/08, and 02/09 and hypothyroidism and polyneuropathy from the back pain, and also has lower extremity leg weakness from his back pain. Obtained a wound culture on 03/26/22 which was positive for Staphylococcus aureus and he was treated Doxycycline. Venous studies obtained 05/13/22 which showed Chronic deep vein thrombosis is noted in the right tibio-peroneal trunk. Chronic superficial vein thrombosis is noted in the left greater saphenous vein. The right greater saphenous vein demonstrates valvular incompetence below the knee. The right accessory saphenous vein demonstrates valvular incompetence. The left saphenofemoral junction, greater saphenous vein, and accessory saphenous vein demonstrate valvular incompetence. Arterial studies obtained on 05/13/22 show Right SINDY 1.48 and Left SINDY 1.46 with Dopppler/PVR waveforms normal at rest bilaterally. He saw Dr. Pang on 05/28/22 and he states that the patient's wounds are improving with compression, he will hold further imaging/intervention unless wounds regress or recur and the patient is to follow up with him in 2 months or sooner if things worsen. Wound care - Collagen hydrogel covered with Vandervoort SAP. Wear compression stockings with and MATT wrap over the the right compression stocking. Today he denies fever, chills, nausea and vomiting. He states he has a good appetite. Progress of Wound: Mr. Walsh is a 47-year-old male following up to clinic for second opinion to left digital ulcerations and maceration. Patient was seen by outside vascular surgery who has placed the patient on antifungal cream as well as oral antibiotics. Patient seems to have reaction to either the antibiotic, fungal cream or both. He has stopped all medications at this time. He has a well history of peripheral arterial as well as vascular disease. His wounds are appreciated to the first and second digit and unsure how that happened. He also complains of interdigital maceration that was treated with antifungal without improvement. He denies trauma. He does not ambulate well. He denies constitutional symptoms. No other pedal complaints at this time. [facility] Medical History Back pain with history of spinal surgery Edema of both lower extremities Hypothyroidism Polyneuropathy Spinal stenosis Home Medications aspirin 325 mg tablet,delayed release 325 mg PO DAILY 05/28/22 [History Last Taken 04/14/23] levothyroxine 25 mcg tablet 25 mcg PO DAILY 05/28/22 [History Last Taken Unknown] kncrhfmmqgyt-mnpwrjuw-dzpqrb tablet 1 tab PO DAILY 05/28/22 [History Last Taken Unknown] pantoprazole 40 mg tablet,delayed release 40 mg PO DAILY 05/28/22 [History Last Taken Unknown] triamterene 37.5 mg-hydrochlorothiazide 25 mg tablet 1 tab PO DAILY 05/28/22 [History Last Taken Unknown] vitamin B complex 1 tab PO DAILY 05/28/22 [History Last Taken Unknown] pravastatin 10 mg tablet mg PO DAILY gerd 04/14/23 [History Last Taken Unknown] clotrimazole 1 % topical cream 1 applic topical BID #45 grams 06/30/23 [Rx Last Taken Unknown] doxycycline hyclate 100 mg capsule 100 mg PO BID 14 days #28 caps 07/08/23 [Rx Last Taken Unknown] Lactobacillus acidophilus-Bifidobac.animalis 2.5 billion cell capsule (Daily Probiotic) cap PO DAILY 07/14/23 [History Last Taken Unknown] Allergy/AdvReac Type Severity Reaction Status Date / Time No Known Allergies Allergy Verified 07/14/23 09:58 Surgical History H/O lumbosacral spine surgery (~11/2014) Social History Smoking Status: Never smoker Vital Signs Vital Signs Vital Signs: 07/14/23 09:19 Temperature 97.6 F L Temperature Source Temporal Pulse Rate 93 Respiratory Rate 18 Blood Pressure 118/76 Blood Pressure Mean 90 Weight Weight: 95.708 kg Body Mass Index (BMI) 29.4 Physical Exam Narrative Vascular: DP and PT pulses are palpable. CFT is brisk. Blanchable erythema appreciated to the dorsal aspect of the right foot. Nonpitting edema appreciated to the left lower extremity. Skin temperature gradient warm to warm from proximal ankle to distal digit. Neurological: Light touch intact. Patient responds to painful stimuli. Dermatological: Full-thickness ulceration appreciated to the hallux measuring 2.2 x 1.5 x 0.1 cm. Wound base is fibrogranular nature. No drainage. Full-thickness ulceration appreciated to the second digit to the left foot measuring 1.5 x 1.4 x 0.1 cm. Wound base is fibrogranular nature. No drainage. Both wounds show no evidence of probe to bone or sign of infection at this time. Evidence of interdigital maceration in all 4 webspaces of the left foot. Malodor is appreciated to the interspaces. Excisional debridement down to and including subcutaneous tissue with a number 5 mm dermal curette to the left hallux. Predebridement measurement is 2.1 x 1.4 x 0.1 cm. Postdebridement measurement is 2.2 x 1.5 x 0.1 cm. Excision debridement down to and including subcutaneous tissue with a number 5 mm dermal curette to the left second digit. Predebridement measurement is 1.4 x 1.3 x 0.1 cm. Postdebridement measurement is 1.5 x 1.4 x 0.1 cm. Musculoskeletal: Moderate palpatory tenderness appreciated to the hallux and second digit full-thickness ulceration. No pain with calf compression. Debridement Note Debridement Note Debridement Free Text: Excisional debridement down to and including subcutaneous tissue with a number 5 mm dermal curette to the left hallux. Predebridement measurement is 2.1 x 1.4 x 0.1 cm. Postdebridement measurement is 2.2 x 1.5 x 0.1 cm. Excision debridement down to and including subcutaneous tissue with a number 5 mm dermal curette to the left second digit. Predebridement measurement is 1.4 x 1.3 x 0.1 cm. Postdebridement measurement is 1.5 x 1.4 x 0.1 cm. Post-Debridement Measurements and Additional Note: Post-Debridement Measurements/Treatment WC - Nurse 1 - General Ulcer Assessment Start: 07/14/23 09:15 Freq: Status: Active Protocol: GREGORY Activity Type Activity Date Activity User E-sign Co-sign Detail Recorded Client Recorded Date Recorded By Document 07/14/23 09:19 PL Tablet 07/14/23 09:32 PL 07/14/23 09:19 WC - Today's Visit Information Type of service Initial Visit Arrival Mode Wheelchair Transfer Assistance None Patient Identification Verified (Name & Yes ) Patient Requires Transmission-Based No Precautions Safety Precautions NA Height and Weight Height 5 ft 11 in Weight 95.708 kg Weight in Pounds 211.0 lbs Weight Measurement Method Estimated by Patient Body Mass Index (BMI) 29.4 BMI Classification Overweight BSA - Keke 2.16 Vital Signs Temperature (97.8 F-99.1 F) 97.6 F L Temperature Source Temporal Pulse Rate (60-100) 93 Respiratory Rate (12-18) 18 Blood Pressure (90/60-120/80) 118/76 Blood Pressure Mean 90 History Since Last Visit- (Skip if this is Patient's initial visit) Have you changed medications since your No last visit? Any new allergies or adverse reactions No Had a fall/change in ADL's that may No increase risk of falls Signs or symptoms of abuse and/or No neglect since last visit Have you been in the hospital since your No last visit? Pain Scale: 0-10 Numeric Is Patient Pain Free? Yes LUIZ - Nurse 1 - General Ulcer Measurement Start: 07/14/23 09:15 Freq: Status: Active Protocol: Activity Type Activity Date Activity User E-sign Co-sign Detail Recorded Client Recorded Date Recorded By Document 07/14/23 09:19 PL Tablet 07/14/23 09:32 PL 07/14/23 09:19 Wound Center Nurse 1 #5 1st left toe -Current Size (cm) - Length 2.0 -Current Size (cm) - Width 1.0 -Current Size (cm) - Depth 0.1 -Total Square Cm 2.00 #4 Hallux med -Current Size (cm) - Length 2.5 -Current Size (cm) - Width 2.5 -Current Size (cm) - Depth 0.1 -Total Square Cm 6.25 LUIZ - Nurse 3 - General Ulcer D/C NN Start: 07/14/23 09:15 Freq: Status: Active Protocol: Activity Type Activity Date Activity User E-sign Co-sign Detail Recorded Client Recorded Date Recorded By Document 07/14/23 09:52 Desktop 07/14/23 09:53 07/14/23 09:52 Wound Care Center Nurse 3 #5 1st left toe -Ulcer Cleansing Not Cleansed -Foul Odor after Cleansing No -Primary Dressing Covered/Secured with Dry Gauze & Roll Gauze, Secured with Tape #4 Hallux med -Ulcer Cleansing Not Cleansed -Foul Odor after Cleansing No -Primary Dressing Covered/Secured with Dry Gauze & Roll Gauze, Secured with Tape Pain Scale: 0-10 Numeric Is Patient Pain Free? Yes Teaching: Wound Center Dressing Your Wound -Person Taught Patient,Family -Teaching Method Discussion, Demonstration -Response to teaching Verbalize understanding WC - Visit Discharge Discharge Condition Stable Ambulatory Status Wheelchair Transportation Private Auto Medication Reconcilliation completed & Yes provided to patient/care provider Clinical Summary of Care Provided Yes Assessment/Plan Assessment/Plan (1) Non-pressure chronic ulcer of other part of left foot with fat layer exposed: CODE(S): L97.522 - Non-pressure chronic ulcer of other part of left foot with fat layer exposed PLAN: Patient was examined evaluated. All findings were discussed with the patient. All questions were answered to the patient's satisfaction Excisional debridement down to and including subcutaneous tissue with a number 5 mm dermal curette to the left hallux. Predebridement measurement is 2.1 x 1.4 x 0.1 cm. Postdebridement measurement is 2.2 x 1.5 x 0.1 cm. Excision debridement down to and including subcutaneous tissue with a number 5 mm dermal curette to the left second digit. Predebridement measurement is 1.4 x 1.3 x 0.1 cm. Postdebridement measurement is 1.5 x 1.4 x 0.1 cm. Educated the patient to stop his antifungal cream as well as antibiotic. A culture was taken from the ulcerations and we will give her antibiotics based on microbiology culture and sensitivity. The left foot and ulcerations were dressed with a Betadine paint and gauze placed in between all interspaces. Followed by dry sterile dressing. Patient is to change dressing daily. He will follow-up in 1 week for evaluation. He left the office pleased with the visit. (2) Tinea pedis: CODE(S): B35.3 - Tinea pedis QUALIFIERS: Laterality: left Qualified Code(s): B35.3 - Tinea pedis (3) Edema of left lower extremity due to peripheral venous insufficiency: CODE(S): I87.2 - Venous insufficiency (chronic) (peripheral) PLAN: Patient is continue to wear his compression wraps. Educated the patient continue to rest and elevate his by the lower extremity to help decrease leg swelling. He was understanding of this.
[2023-07-21 09:44] VITALS: BP 120/81; PULSE 95; RESP 16; TEMP 36.6; BMI 29.4
--- NOTE | 2023-07-21 10:12 | PCM.WC.PN ---
History of Present Illness Date of Service: 07/21/23 Chief Complaint: Non healing right leg ulcer History of Wound: Patient is 71 year old male who has had a non healing wound on his right anterior leg. He has had this ulcer for approximately 9 months. He has been cleaning it daily with hydrogen peroxide and then placing antibiotic ointment. He has issues with bilateral lower extremity edema. He states he wears compression socks and an MATT wrap to help his chronic edema. He does sleep in a recliner. He has a history of spinal stenosis with surgeries 12/05, 10/08, and 02/09 and hypothyroidism and polyneuropathy from the back pain, and also has lower extremity leg weakness from his back pain. Obtained a wound culture on 03/26/22 which was positive for Staphylococcus aureus and he was treated Doxycycline. Venous studies obtained 05/13/22 which showed Chronic deep vein thrombosis is noted in the right tibio-peroneal trunk. Chronic superficial vein thrombosis is noted in the left greater saphenous vein. The right greater saphenous vein demonstrates valvular incompetence below the knee. The right accessory saphenous vein demonstrates valvular incompetence. The left saphenofemoral junction, greater saphenous vein, and accessory saphenous vein demonstrate valvular incompetence. Arterial studies obtained on 05/13/22 show Right SINDY 1.48 and Left SINDY 1.46 with Dopppler/PVR waveforms normal at rest bilaterally. He saw Dr. Pang on 05/28/22 and he states that the patient's wounds are improving with compression, he will hold further imaging/intervention unless wounds regress or recur and the patient is to follow up with him in 2 months or sooner if things worsen. Wound care - Collagen hydrogel covered with [place] SAP. Wear compression stockings with and MATT wrap over the the right compression stocking. Today he denies fever, chills, nausea and vomiting. He states he has a good appetite. Progress of Wound: Mr. Walsh is a 47-year-old male following up to clinic for second opinion to left digital ulcerations and maceration. Patient was seen by outside vascular surgery who has placed the patient on antifungal cream as well as oral antibiotics. Patient seems to have reaction to either the antibiotic, fungal cream or both. He has stopped all medications at this time. He has a well history of peripheral arterial as well as vascular disease. His wounds are appreciated to the first and second digit and unsure how that happened. He also complains of interdigital maceration that was treated with antifungal without improvement. He denies trauma. He does not ambulate well. He denies constitutional symptoms. No other pedal complaints at this time. Subjective Subjective Mr. Walsh is a 72-year-old male presenting to clinic today for follow-up and evaluation of full-thickness ulceration and venous insufficiency to the left lower extremity. Patient has been doing his home dressing changes with Betadine dry sterile dressing and compression wrap uneventfully. He admits to great improvement to his wounds. He presents today for evaluation and culture follow-up. He denies trauma. Denies constitutional symptoms. No other pedal complaints at this time. Objective Data Objective Data Vital Signs: Vital Signs Temp Pulse Resp BP O2 Del Method 97.8 F 95 16 120/81 H Room Air 07/21/23 09:44 07/21/23 09:44 07/21/23 09:44 07/21/23 09:44 07/21/23 09:44 Oxygen Delivery Method Room Air Weight: 95.708 kg Body Mass Index (BMI) 29.4 Lab / Micro Data Attestation: I reviewed the patient's lab results. Micro: Microbiology 07/14/23 09:40 Wound - Toe Gram Stain - Final 07/14/23 09:40 Wound - Toe Wound Culture - Final Pseudomonas aeruginosa 07/14/23 09:40 Wound - Toe Anaerobic Culture - Final No anaerobic bacteria isolated. Physical Exam Narrative Vascular: DP and PT pulses are palpable. CFT is brisk. Blanchable erythema appreciated to the dorsal aspect of the right foot. Nonpitting edema appreciated to the left lower extremity. Skin temperature gradient warm to warm from proximal ankle to distal digit. Neurological: Light touch intact. Patient responds to painful stimuli. Dermatological: Full-thickness ulceration appreciated to the hallux measuring 2.5 x 1.4 x 0.1 cm. Wound base is fibrogranular nature. No drainage. Full-thickness ulceration appreciated to the second digit to the left foot measuring 1.8 x 1.7 x 0.1 cm. Wound base is granular nature. No drainage. Both wounds show no evidence of probe to bone or sign of infection at this time. Evidence of interdigital maceration in all 4 webspaces of the left foot. Malodor improved. Excisional debridement down to and including subcutaneous tissue with a number 5 mm dermal curette to the left hallux. Predebridement measurement is 2.3 x 1.3 x 0.1 cm. Postdebridement measurement is 2.5 x 1.4 x 0.1 cm. Excision debridement down to and including subcutaneous tissue with a number 5 mm dermal curette to the left second digit. Predebridement measurement is 1.7 x 1.6 x 0.1 cm. Postdebridement measurement is 1.8 x 1.7 x 0.1 cm. Musculoskeletal: Moderate palpatory tenderness appreciated to the hallux and second digit full-thickness ulceration. No pain with calf compression. Debridement Note Debridement Note Debridement Free Text: Excisional debridement down to and including subcutaneous tissue with a number 5 mm dermal curette to the left hallux. Predebridement measurement is 2.3 x 1.3 x 0.1 cm. Postdebridement measurement is 2.5 x 1.4 x 0.1 cm. Excision debridement down to and including subcutaneous tissue with a number 5 mm dermal curette to the left second digit. Predebridement measurement is 1.7 x 1.6 x 0.1 cm. Postdebridement measurement is 1.8 x 1.7 x 0.1 cm. Post-Debridement Measurements and Additional Note: Post-Debridement Measurements/Treatment WC - Nurse 1 - General Ulcer Assessment Start: 07/14/23 09:15 Freq: Status: Active Protocol: WC.LOWNADER Activity Type Activity Date Activity User E-sign Co-sign Detail Recorded Client Recorded Date Recorded By Document 07/14/23 09:19 PL Tablet 07/14/23 09:32 PL Document 07/21/23 09:44 MW Desktop 07/21/23 09:50 MW 07/14/23 07/21/23 09:19 09:44 WC - Today's Visit Information Type of service Initial Visit Follow-up Visit (Physician/[employer] ) Arrival Mode Wheelchair Wheelchair Transfer Assistance None None Accompanied by Patient Identification Verified (Name & Yes Yes ) Patient Requires Transmission-Based No No Precautions Safety Precautions NA NA Height and Weight Height 5 ft 11 in Weight 95.708 kg Weight in Pounds 211.0 lbs Weight Measurement Method Estimated by Patient Body Mass Index (BMI) 29.4 29.4 BMI Classification Overweight Overweight BSA - Keke 2.16 Vital Signs Temperature (97.8 F-99.1 F) 97.6 F L 97.8 F Temperature Source Temporal Temporal Pulse Rate (60-100) 93 95 Pulse Location Monitor Respiratory Rate (12-18) 18 16 Respiratory rate source Observation Oxygen Delivery Method Room Air Blood Pressure (90/60-120/80) 118/76 120/81 H Blood Pressure Mean (mm Hg) 90 94 Source Monitor Position Sitting Blood Pressure Location Left Forearm History Since Last Visit- (Skip if this is Patient's initial visit) Have you changed medications since your No No last visit? Any new allergies or adverse reactions No No Had a fall/change in ADL's that may No No increase risk of falls Signs or symptoms of abuse and/or No No neglect since last visit Have you been in the hospital since your No No last visit? Has dressing in place as prescribed Yes Has compression in place as prescribed Yes Has offloadiing in place as prescribed N/A Experienced any changes in pain level or No management Left Footwear Regular Shoe Right Footwear Regular Shoe Pain Scale: 0-10 Numeric Is Patient Pain Free? Yes Yes WC - Nurse 1 - General Ulcer Measurement Start: 07/14/23 09:15 Freq: Status: Active Protocol: Activity Type Activity Date Activity User E-sign Co-sign Detail Recorded Client Recorded Date Recorded By Document 07/14/23 09:19 PL Tablet 07/14/23 09:32 PL Document 07/21/23 09:44 MW Desktop 07/21/23 09:50 MW 07/14/23 07/21/23 09:19 09:44 Wound Center Nurse 1 #5 2nd toe -Combined with other wound No -Current Size (cm) - Length 2.0 1.5 -Current Size (cm) - Width 1.0 1.5 -Current Size (cm) - Depth 0.1 0.1 -Total Square Cm 2.00 2.25 -Photo Taken No -Epithelialization None Present -Tunneling No -Undermining/Tunneling No -Circular Undermining No -Exudate Amt Medium -Exudate Type Serosanguineous -Wound Margin Flat & Intact -Granulation Amt Large (67-100%) -Granulation Quality Red -Slough/Fibrin Yes -Necrosis Amt Small (1-33%) -Necrotic Tissue Type Adherent Slough -Structure Exposed N/A -Texture (Taylor-wound Skin Appearance) Assessed, Localized Edema -Moisture (Taylor-wound Skin Appearance) No Abnormality, Assessed -Color (Taylor-wound Skin Appearance) Assessed,Rubor -Temperature (Taylor-wound Skin No Abnormality Appearance) (Pt Warm) -Tenderness on Palpation (Taylor-wound No Skin Appearance) -Ulcer Cleansing Soap and Water -Foul Odor after Cleansing No -Anesthetic Used 5% Lidocaine Gel #4 Hallux med -Combined with other wound No -Current Size (cm) - Length 2.5 2.5 -Current Size (cm) - Width 2.5 1.0 -Current Size (cm) - Depth 0.1 0.1 -Total Square Cm 6.25 2.50 -Photo Taken No -Epithelialization None Present -Tunneling No -Undermining/Tunneling No -Circular Undermining No -Exudate Amt Medium -Exudate Type Serosanguineous -Wound Margin Flat & Intact -Granulation Amt Large (67-100%) -Granulation Quality Red -Slough/Fibrin Yes -Necrosis Amt Small (1-33%) -Necrotic Tissue Type Adherent Slough -Structure Exposed N/A -Texture (Taylor-wound Skin Appearance) Assessed, Localized Edema -Moisture (Taylor-wound Skin Appearance) No Abnormality, Assessed -Color (Taylor-wound Skin Appearance) Assessed,Rubor -Temperature (Taylor-wound Skin No Abnormality Appearance) (Pt Warm) -Tenderness on Palpation (Taylor-wound No Skin Appearance) -Ulcer Cleansing Soap and Water -Foul Odor after Cleansing No -Anesthetic Used 5% Lidocaine Gel Lower Limb Edema Present Yes Left Calf (cm) 35.1 Left Ankle (cm) 25.1 WC - Nurse 2 - General Ulcer CM Notes Start: 07/14/23 09:15 Freq: Status: Active Protocol: Activity Type Activity Date Activity User E-sign Co-sign Detail Recorded Client Recorded Date Recorded By Document 07/14/23 10:10 PL Tablet 07/14/23 10:15 PL Document 07/21/23 09:59 Laptop 07/21/23 10:06 07/14/23 07/21/23 10:10 09:59 Wound Center Nurse 2 #5 2nd toe -Time 09:15 10:00 -Correct Patient Yes Yes -Correct Side, Site, Position Yes Yes -Correct Procedure Yes Yes -Procedure Performed Yes Yes -Type of Procedure Debridement Debridement -Clinical Debridement Subcutaneous Subcutaneous -Tissue Removed Subcutaneous Subcutaneous -Post Debridement (cm) - Length 2.2 1.8 -Post Debridement (cm) - Width 1.5 1.7 -Post Debridement (cm) - Depth 0.1 0.1 -Total Square (Post) (cm) 3.30 3.06 -Area of Debridement (cm) - Length 2.2 1.8 -Area of Debridement (cm) - Width 1.5 1.7 -Total Square (Area) (cm) 3.30 3.06 -Tunneling No No -Undermining/Tunneling No No -Circular Undermining No No -Wound/Ulcer Outcome Not Healed Not Healed -Ulcer Cleansing Rinsed/ Rinsed/ Irrigated with Irrigated with Saline Saline -Foul Odor after Cleansing No No -Bioengineered Tissue No No -Bleeding Controlled with Pressure Pressure -Treatment Response Procedure Procedure Tolerated Well Tolerated Well -Offloading No -Debridement - Subq, 1st 20sq cm No No #4 Hallux med -Time 09:15 10:00 -Correct Patient Yes Yes -Correct Side, Site, Position Yes Yes -Correct Procedure Yes Yes -Procedure Performed Yes Yes -Type of Procedure Debridement Debridement -Clinical Debridement Subcutaneous Subcutaneous -Tissue Removed Subcutaneous Subcutaneous -Post Debridement (cm) - Length 1.5 2.5 -Post Debridement (cm) - Width 1.4 1.4 -Post Debridement (cm) - Depth 0.1 0.1 -Total Square (Post) (cm) 2.10 3.50 -Area of Debridement (cm) - Length 1.5 2.5 -Area of Debridement (cm) - Width 1.4 1.4 -Total Square (Area) (cm) 2.10 3.50 -Tunneling No No -Undermining/Tunneling No No -Circular Undermining No No -Wound/Ulcer Outcome Not Healed Not Healed -Ulcer Cleansing Rinsed/ Rinsed/ Irrigated with Irrigated with Saline Saline -Foul Odor after Cleansing No No -Bioengineered Tissue No No -Bleeding Controlled with Pressure Pressure -Treatment Response Procedure Procedure Tolerated Well Tolerated Well -Offloading No -Debridement - Subq, 1st 20sq cm Yes Yes Pain Scale: 0-10 Numeric Is Patient Pain Free? Yes Yes WC - Nurse 3 - General Ulcer D/C NN Start: 07/14/23 09:15 Freq: Status: Active Protocol: Activity Type Activity Date Activity User E-sign Co-sign Detail Recorded Client Recorded Date Recorded By Document 07/14/23 09:52 Desktop 07/14/23 09:53 07/14/23 09:52 Wound Care Center Nurse 3 #5 2nd toe -Ulcer Cleansing Not Cleansed -Foul Odor after Cleansing No -Primary Dressing Covered/Secured with Dry Gauze & Roll Gauze, Secured with Tape #4 Hallux med -Ulcer Cleansing Not Cleansed -Foul Odor after Cleansing No -Primary Dressing Covered/Secured with Dry Gauze & Roll Gauze, Secured with Tape Pain Scale: 0-10 Numeric Is Patient Pain Free? Yes Teaching: Wound Center Dressing Your Wound -Person Taught Patient,Family -Teaching Method Discussion, Demonstration -Response to teaching Verbalize understanding WC - Visit Discharge Discharge Condition Stable Ambulatory Status Wheelchair Transportation Private Auto Medication Reconcilliation completed & Yes provided to patient/care provider Clinical Summary of Care Provided Yes Assessment/Plan Assessment/Plan (1) Non-pressure chronic ulcer of other part of left foot with fat layer exposed: CODE(S): L97.522 - Non-pressure chronic ulcer of other part of left foot with fat layer exposed PLAN: Patient was examined evaluated. All findings were discussed with the patient. All questions were answered to the patient's satisfaction Excisional debridement down to and including subcutaneous tissue with a number 5 mm dermal curette to the left hallux. Predebridement measurement is 2.3 x 1.3 x 0.1 cm. Postdebridement measurement is 2.5 x 1.4 x 0.1 cm. Excision debridement down to and including subcutaneous tissue with a number 5 mm dermal curette to the left second digit. Predebridement measurement is 1.7 x 1.6 x 0.1 cm. Postdebridement measurement is 1.8 x 1.7 x 0.1 cm. Betadine paint was applied to all web spaces to the left foot followed by Betadine soaked gauze to the first and second digit of the left foot. Followed by 4 x 4's and dry sterile dressing and compression wrap. Patient was instructed to change his dressing daily. He was understanding of this. Patient will follow-up in 2 weeks. Patient will be placed on ciprofloxacin due to his bacterial growth based on the microbiology ensitivity and culture results. Patient is grateful for his care. (2) Tinea pedis: CODE(S): B35.3 - Tinea pedis QUALIFIERS: Laterality: left Qualified Code(s): B35.3 - Tinea pedis (3) Edema of left lower extremity due to peripheral venous insufficiency: CODE(S): I87.2 - Venous insufficiency (chronic) (peripheral) (4) Cellulitis of left foot: CODE(S): L03.116 - Cellulitis of left lower limb
== END 2023-07-22 23:59 | disposition home or self-care (01) ==
LOC: WC 10:00
PROVIDERS: PCP Family Medicine; Referring Provider Physician Assistant; Visit Provider Podiatrist Foot & Ankle Surgery
DX: L97.522 Non-pressure chronic ulcer of other part of left foot with fat layer exposed (principal); R60.0 Localized edema; R29.898 Other symptoms and signs involving the musculoskeletal system; Z79.82 Long term (current) use of aspirin; I82.812 Embolism and thrombosis of superficial veins of left lower extremity; L03.116 Cellulitis of left lower limb; B35.3 Tinea pedis; I87.2 Venous insufficiency (chronic) (peripheral)
CPT/HCPCS: 11042; 87070; 87075; 87077; 87101; 87186; 87205; 99213; G0463

== ENCOUNTER 2023-08-18 10:00 | Outpatient (RCR) | payer MEDICARE, SELFPAY ==
[2023-07-23 00:25] VITALS: BP 120/81; PULSE 95; RESP 16; TEMP 36.6; BMI 29.4
--- NOTE | 2023-08-02 09:26 | WC ---
Patient called concerned that the [facility] physician stopped his ATB and wasnt sure why. Dr Calixto had patient on Cipro. Faxed over Dr Calixto's note and patient's recent wound culture. Encourage staff from [facility] to call with any questions. Patient is scheduled here at wound center on . Spoke to patient who got admitted to [facility] for rehab due to bad knee.
[2023-08-04 10:15] VITALS: BP 112/60; PULSE 86; RESP 16; TEMP 36.2; BMI 29.4
--- NOTE | 2023-08-04 12:35 | PN.PCM_ITS ---
History of Present Illness Date of Service: 08/04/23 Chief Complaint: Non healing right leg ulcer History of Wound: Patient is 71 year old male who has had a non healing wound on his right anterior leg. He has had this ulcer for approximately 9 months. He has been cleaning it daily with hydrogen peroxide and then placing antibiotic ointment. He has issues with bilateral lower extremity edema. He states he wears compression socks and an MATT wrap to help his chronic edema. He does sleep in a recliner. He has a history of spinal stenosis with surgeries 12/05, 10/08, and 02/09 and hypothyroidism and polyneuropathy from the back pain, and also has lower extremity leg weakness from his back pain. Obtained a wound culture on 03/26/22 which was positive for Staphylococcus aureus and he was treated Doxycycline. Venous studies obtained 05/13/22 which showed Chronic deep vein thrombosis is noted in the right tibio-peroneal trunk. Chronic superficial vein thrombosis is noted in the left greater saphenous vein. The right greater saphenous vein demonstrates valvular incompetence below the knee. The right accessory saphenous vein demonstrates valvular incompetence. The left saphenofemoral junction, greater saphenous vein, and accessory saphenous vein demonstrate valvular incompetence. Arterial studies obtained on 05/13/22 show Right SINDY 1.48 and Left SINDY 1.46 with Dopppler/PVR waveforms normal at rest bilaterally. He saw Dr. Pang on 05/28/22 and he states that the patient's wounds are im proving with compression, he will hold further imaging/intervention unless wounds regress or recur and the patient is to follow up with him in 2 months or sooner if things worsen. Wound care - Collagen hydrogel covered with [place] SAP. Wear compression stockings with and MATT wrap over the the right compression stocking. Today he denies fever, chills, nausea and vomiting. He states he has a good appetite. Subjective Subjective Mr. Walsh is a 72-year-old male presenting to wound care center today for follow-up evaluation of left digital wounds. Patient was seen last week at [facility] where he was admitted for knee pain and eventually presorted to a group home facility for rehab. Since being at the rehab the patient has rest and elevate his left lower extremity has noticed his swelling has improved as well as his wounds. He has been getting dressing changes at the facility as well as taking his oral ciprofloxacin antibiotic that was prescribed by Dr. Calixto. he denies any trauma. Denies constitutional symptoms. No other pedal complaints at this time. Objective Data Objective Data Vital Signs: Vital Signs Temp Pulse Resp BP O2 Del Method 97.1 F L 86 16 112/60 Room Air 08/04/23 10:15 08/04/23 10:15 08/04/23 10:15 08/04/23 10:15 08/04/23 10:15 Oxygen Delivery Method Room Air Weight: 95.708 kg Body Mass Index (BMI) 29.4 Physical Exam Narrative Vascular: DP and PT pulses are palpable. CFT is brisk. Blanchable erythema appreciated to the dorsal aspect of the right foot, improved. Nonpitting edema appreciated to the left lower extremity, improved. Skin temperature gradient warm to warm from proximal ankle to distal digit. Neurological: Light touch intact. Patient responds to painful stimuli. Dermatological: Full-thickness ulceration appreciated to the hallux measuring 2.0 x 0.5 x 0.1 cm. Wound base is fibrogranular nature. No drainage. Full- thickness ulceration appreciated to the second digit to the left foot measuring 1.0 x 0.7 x 0.1 cm. Wound base is granular nature. No drainage. Both wounds show no evidence of probe to bone or sign of infection at this time. Evidence of interdigital maceration in all 4 webspaces of the left foot. Malodor improved. Excisional debridement down to and including subcutaneous tissue with a number 5 mm dermal curette to the left hallux. Predebridement measurement is 1.9 x 0.4 x 0.1 cm. Postdebridement measurement is 2.0 x 0.5 x 0.1 cm. Excision debridement down to and including subcutaneous tissue with a number 5 mm dermal curette to the left second digit. Predebridement measurement is 0.8 x 0.5 x 0.1 cm. Postdebridement measurement is 1.0 x 0.7 x 0.1 cm. Musculoskeletal: Moderate palpatory tenderness appreciated to the hallux and second digit full-thickness ulceration. No pain with calf compression. Debridement Note Debridement Note Debridement Free Text: Excisional debridement down to and including subcutaneous tissue with a number 5 mm dermal curette to the left hallux. Predebridement measurement is 1.9 x 0.4 x 0.1 cm. Postdebridement measurement is 2.0 x 0.5 x 0.1 cm. Excision debridement down to and including subcutaneous tissue with a number 5 mm dermal curette to the left second digit. Predebridement measurement is 0.8 x 0.5 x 0.1 cm. Postdebridement measurement is 1.0 x 0.7 x 0.1 cm. Post-Debridement Measurements and Additional Note: Post-Debridement Measurements/Treatment WC - Nurse 1 - General Ulcer Assessment Start: 08/04/23 10:14 Freq: Status: Active Protocol: [email or web address] Activity Type Activity Date Activity User E-sign Co-sign Detail Recorded Client Recorded Date Recorded By Document 08/04/23 10:15 [facility] Desktop 08/04/23 10:27 [facility] 08/04/23 10:15 WC - Today's Visit Information Type of service Follow-up Visit (Physician/COMMUNITY ENGAGEMENT REPRESENTATIVE ) Arrival Mode Wheelchair Transfer Assistance None Accompanied by stays in chair Patient Identification Verified (Name & Yes ) Patient Requires Transmission-Based No Precautions Height and Weight Body Mass Index (BMI) 29.4 BMI Classification Overweight Vital Signs Temperature (97.8 F-99.1 F) 97.1 F L Temperature Source Temporal Pulse Rate (60-100) 86 Pulse Location Monitor Respiratory Rate (12-18) 16 Respiratory rate source Observation Oxygen Delivery Method Room Air Blood Pressure (90/60-120/80) 112/60 Blood Pressure Mean (mm Hg) 77 Source Monitor Position Sitting Blood Pressure Location Right Arm History Since Last Visit- (Skip if this is Patient's initial visit) Have you changed medications since your No last visit? Any new allergies or adverse reactions No Had a fall/change in ADL's that may No increase risk of falls Signs or symptoms of abuse and/or No neglect since last visit Have you been in the hospital since your Yes last visit? Has dressing in place as prescribed Yes Has compression in place as prescribed N/A Has offloadiing in place as prescribed N/A Experienced any changes in pain level or No management Left Footwear Slipper Right Footwear Slipper Pain Scale: 0-10 Numeric Is Patient Pain Free? Yes - Nurse 1 - General Ulcer Measurement Start: 08/04/23 10:14 Freq: Status: Active Protocol: Activity Type Activity Date Activity User E-sign Co-sign Detail Recorded Client Recorded Date Recorded By Document 08/04/23 10:15 [facility] Desktop 08/04/23 10:27 [facility] 08/04/23 10:15 Wound Center Nurse 1 #5 2nd toe -Combined with other wound No -Current Size (cm) - Length 0.8 -Current Size (cm) - Width 0.4 -Current Size (cm) - Depth 0.1 -Total Square Cm 0.32 -Date of Last Picture (Recall this 08/04/23 field) -Photo Taken Yes -Epithelialization Large 67-100% -Tunneling No -Undermining/Tunneling No -Circular Undermining No -Exudate Amt Small -Exudate Type Serous -Wound Margin Distinct, Outline Attached -Granulation Amt Medium (34-66%) -Granulation Quality Red -Slough/Fibrin Yes -Necrosis Amt Medium (34-66%) -Necrotic Tissue Type Eschar -Texture (Taylor-wound Skin Appearance) Assessed, Scarring -Moisture (Taylor-wound Skin Appearance) Assessed,Dry/ Scaly -Color (Taylor-wound Skin Appearance) Assessed -Temperature (Taylor-wound Skin No Abnormality Appearance) (Pt Warm) -Tenderness on Palpation (Taylor-wound No Skin Appearance) -Ulcer Cleansing Rinsed/ Irrigated with Saline -Foul Odor after Cleansing No -Anesthetic Used 5% Lidocaine Gel #4 Hallux med -Combined with other wound No -Current Size (cm) - Length 0.5 -Current Size (cm) - Width 0.3 -Current Size (cm) - Depth 0.1 -Total Square Cm 0.15 -Date of Last Picture (Recall this 08/04/23 field) -Photo Taken Yes -Epithelialization Large 67-100% -Tunneling No -Undermining/Tunneling No -Circular Undermining No -Exudate Amt Small -Exudate Type Serous -Wound Margin Distinct, Outline Attached -Granulation Amt Medium (34-66%) -Granulation Quality Red -Slough/Fibrin Yes -Necrosis Amt Medium (34-66%) -Necrotic Tissue Type Eschar -Texture (Taylor-wound Skin Appearance) Assessed, Localized Edema -Moisture (Taylor-wound Skin Appearance) Assessed,Dry/ Scaly -Color (Taylor-wound Skin Appearance) Assessed -Temperature (Taylor-wound Skin No Abnormality Appearance) (Pt Warm) -Tenderness on Palpation (Taylor-wound No Skin Appearance) -Ulcer Cleansing Rinsed/ Irrigated with Saline -Foul Odor after Cleansing No -Anesthetic Used 5% Lidocaine Gel WC - Nurse 2 - General Ulcer CM Notes Start: 08/04/23 10:14 Freq: Status: Active Protocol: Activity Type Activity Date Activity User E-sign Co-sign Detail Recorded Client Recorded Date Recorded By Document 08/04/23 10:35 [facility] Desktop 08/04/23 10:36 [facility] 08/04/23 10:35 Wound Center Nurse 2 #5 2nd toe -Time 10:35 -Correct Patient Yes -Correct Side, Site, Position Yes -Correct Procedure Yes -Procedure Performed Yes -Type of Procedure Debridement -Clinical Debridement Subcutaneous -Tissue Removed Subcutaneous -Post Debridement (cm) - Length 1 -Post Debridement (cm) - Width 0.7 -Post Debridement (cm) - Depth 0.1 -Total Square (Post) (cm) 0.7 -Area of Debridement (cm) - Length 1.0 -Area of Debridement (cm) - Width 0.7 -Total Square (Area) (cm) 0.70 -Tunneling No -Undermining/Tunneling No -Circular Undermining No -Wound/Ulcer Outcome Not Healed -Ulcer Cleansing Rinsed/ Irrigated with Saline -Foul Odor after Cleansing No -Bioengineered Tissue No -Bleeding Controlled with Pressure -Treatment Response Procedure Tolerated Well -Offloading No -Debridement - Subq, 1st 20sq cm Yes #4 Hallux med -Time 10:36 -Correct Patient Yes -Correct Side, Site, Position Yes -Correct Procedure Yes -Procedure Performed Yes -Type of Procedure Debridement -Clinical Debridement Subcutaneous -Tissue Removed Subcutaneous -Post Debridement (cm) - Length 2.0 -Post Debridement (cm) - Width 0.5 -Post Debridement (cm) - Depth 0.1 -Total Square (Post) (cm) 1.00 -Area of Debridement (cm) - Length 2.0 -Area of Debridement (cm) - Width 0.5 -Total Square (Area) (cm) 1.00 -Tunneling No -Undermining/Tunneling No -Circular Undermining No -Wound/Ulcer Outcome Not Healed -Ulcer Cleansing Rinsed/ Irrigated with Saline -Foul Odor after Cleansing No -Bioengineered Tissue No -Bleeding Controlled with Pressure -Treatment Response Procedure Tolerated Well -Offloading No -Debridement - Subq, 1st 20sq cm No Pain Scale: 0-10 Numeric Is Patient Pain Free? Yes WC - Nurse 3 - General Ulcer D/C NN Start: 08/04/23 10:14 Freq: Status: Active Protocol: Activity Type Activity Date Activity User E-sign Co-sign Detail Recorded Client Recorded Date Recorded By Document 08/04/23 11:09 [facility] Desktop 08/04/23 11:09 [facility] 08/04/23 11:09 Wound Care Center Nurse 3 #5 2nd toe -Primary Dressing Covered/Secured with Dry Gauze & Roll Gauze, Secured with Tape #4 Hallux med -Primary Dressing Covered/Secured with Dry Gauze & Roll Gauze, Secured with Tape Pain Scale: 0-10 Numeric Is Patient Pain Free? Yes Assessment/Plan Assessment/Plan (1) Non-pressure chronic ulcer of other part of left foot with fat layer exposed: CODE(S): L97.522 - Non-pressure chronic ulcer of other part of left foot with fat layer exposed PLAN: Patient was examined and evaluated. All findings were discussed with the patient. All questions were answered to the patient's satisfaction. Excisional debridement down to and including subcutaneous tissue with a number 5 mm dermal curette to the left hallux. Predebridement measurement is 1.9 x 0.4 x 0.1 cm. Postdebridement measurement is 2.0 x 0.5 x 0.1 cm. Excision debridement down to and including subcutaneous tissue with a number 5 mm dermal curette to the left second digit. Predebridement measurement is 0.8 x 0.5 x 0.1 cm. Postdebridement measurement is 1.0 x 0.7 x 0.1 cm. Both wounds were dressed with Betadine wet-to-dry. Educated the patient that he will need to have the nurses at the facility change these daily as well as continue take his oral antibiotic, ciprofloxacin as written. Patient will follow-up with Dr. Pang for procedure on 08/25/2023. Follow-up in 2 weeks. (2) Venous insufficiency of left lower extremity: CODE(S): I87.2 - Venous insufficiency (chronic) (peripheral) (3) Cellulitis of left foot: CODE(S): L03.116 - Cellulitis of left lower limb
[2023-08-18 10:43] VITALS: BP 118/67; PULSE 79; RESP 18; TEMP 36.2; BMI 29.4
--- NOTE | 2023-08-18 11:28 | PN.PCM_ITS ---
History of Present Illness Date of Service: 08/18/23 Chief Complaint: Non healing right leg ulcer History of Wound: Patient is 71 year old male who has had a non healing wound on his right anterior leg. He has had this ulcer for approximately 9 months. He has been cleaning it daily with hydrogen peroxide and then placing antibiotic ointment. He has issues with bilateral lower extremity edema. He states he wears compression socks and an MATT wrap to help his chronic edema. He does sleep in a recliner. He has a history of spinal stenosis with surgeries 12/05, 10/08, and 02/09 and hypothyroidism and polyneuropathy from the back pain, and also has lower extremity leg weakness from his back pain. Obtained a wound culture on 03/26/22 which was positive for Staphylococcus aureus and he was treated Doxycycline. Venous studies obtained 05/13/22 which showed Chronic deep vein thrombosis is noted in the right tibio-peroneal trunk. Chronic superficial vein thrombosis is noted in the left greater saphenous vein. The right greater saphenous vein demonstrates valvular incompetence below the knee. The right accessory saphenous vein demonstrates valvular incompetence. The left saphenofemoral junction, greater saphenous vein, and accessory saphenous vein demonstrate valvular incompetence. Arterial studies obtained on 05/13/22 show Right SINDY 1.48 and Left SINDY 1.46 with Dopppler/PVR waveforms normal at rest bilaterally. He saw Dr. Pang on 05/28/22 and he states that the patient's wounds are im proving with compression, he will hold further imaging/intervention unless wounds regress or recur and the patient is to follow up with him in 2 months or sooner if things worsen. Wound care - Collagen hydrogel covered with Lincoln SAP. Wear compression stockings with and MATT wrap over the the right compression stocking. Today he denies fever, chills, nausea and vomiting. He states he has a good appetite. Subjective Subjective Mr. Walsh is a 72-year-old male presenting to wound care center today for follow-up evaluation of left digital wounds. Patient has been doing his home dressing changes as instructed. He is following up with Dr. Pang sometime in the new year. He states great improvement to his wound. He denies trauma. Denies constitutional symptoms. He states that he is getting a small rash on his bilateral arms secondary to the antibiotic and will stop that because of the pruritus. He denies trauma. Denies constitutional symptoms. No other pedal complaints at this time. Objective Data Objective Data Vital Signs: Vital Signs Temp Pulse Resp BP O2 Del Method 97.2 F L 79 18 118/67 Room Air 08/18/23 10:43 08/18/23 10:43 08/18/23 10:43 08/18/23 10:43 08/18/23 10:43 Oxygen Delivery Method Room Air Weight: 95.708 kg Body Mass Index (BMI) 29.4 Physical Exam Narrative Vascular: DP and PT pulses are palpable. CFT is brisk. Blanchable erythema appreciated to the dorsal aspect of the right foot, improved. Nonpitting edema appreciated to the left lower extremity, improved. Skin temperature gradient warm to warm from proximal ankle to distal digit. Neurological: Light touch intact. Patient responds to painful stimuli. Dermatological: Full-thickness ulceration appreciated to the hallux which is healed. Full-thickness ulceration appreciated to the second digit to the left foot measuring 0.8 x 0.4 x 0.1 cm. Wound base is granular nature. No drainage. Evidence of interdigital maceration in all 4 webspaces of the left foot, improved. Excision debridement down to and including subcutaneous tissue with a number 5 mm dermal curette to the left second digit. Predebridement measurement is 0.6 x 0.3 x 0.1 cm. Postdebridement measurement is 0.8 x 0.4 x 0.1 cm. Musculoskeletal: Moderate palpatory tenderness appreciated to the hallux and second digit full-thickness ulceration. No pain with calf compression. Debridement Note Debridement Note Debridement Free Text: Excision debridement down to and including subcutaneous tissue with a number 5 mm dermal curette to the left second digit. Predebridement measurement is 0.6 x 0.3 x 0.1 cm. Postdebridement measurement is 0.8 x 0.4 x 0.1 cm. Post-Debridement Measurements and Additional Note: Post-Debridement Measurements/Treatment WC - Nurse 1 - General Ulcer Assessment Start: 08/04/23 10:14 Freq: Status: Active Protocol: GREGORY Activity Type Activity Date Activity User E-sign Co-sign Detail Recorded Client Recorded Date Recorded By Document 08/04/23 10:15 [facility] Desktop 08/04/23 10:27 [facility] Document 08/18/23 10:43 Desktop 08/18/23 10:50 08/04/23 08/18/23 10:15 10:43 - Today's Visit Information Type of service Follow-up Visit Follow-up Visit (Physician/INTERVIEWING CLERK (Physician/INTERVIEWING CLERK ) ) Arrival Mode Wheelchair Wheelchair Transfer Assistance None None Accompanied by stays in chair Patient Identification Verified (Name & Yes Yes ) Patient Requires Transmission-Based No No Precautions Height and Weight Body Mass Index (BMI) 29.4 29.4 BMI Classification Overweight Overweight Vital Signs Temperature (97.8 F-99.1 F) 97.1 F L 97.2 F L Temperature Source Temporal Temporal Pulse Rate (60-100) 86 79 Pulse Location Monitor Monitor Respiratory Rate (12-18) 16 18 Respiratory rate source Observation Observation Oxygen Delivery Method Room Air Room Air Blood Pressure (90/60-120/80) 112/60 118/67 Blood Pressure Mean (mm Hg) 77 84 Source Monitor Monitor Position Sitting Sitting Blood Pressure Location Right Arm Right Arm History Since Last Visit- (Skip if this is Patient's initial visit) Have you changed medications since your No No last visit? Any new allergies or adverse reactions No No Had a fall/change in ADL's that may No No increase risk of falls Signs or symptoms of abuse and/or No No neglect since last visit Have you been in the hospital since your Yes last visit? Has dressing in place as prescribed Yes Yes Has compression in place as prescribed N/A Yes Has offloadiing in place as prescribed N/A Yes Experienced any changes in pain level or No No management Left Footwear Slipper Other Footwear (Comment) Right Footwear Slipper No Footwear Other Footwear socks over matt wrap Pain Scale: 0-10 Numeric Is Patient Pain Free? Yes No - Nurse 1 - General Ulcer Measurement Start: 08/04/23 10:14 Freq: Status: Active Protocol: Activity Type Activity Date Activity User E-sign Co-sign Detail Recorded Client Recorded Date Recorded By Document 08/04/23 10:15 [facility] Desktop 08/04/23 10:27 [facility] Document 08/18/23 10:43 Desktop 08/18/23 10:50 08/04/23 08/18/23 10:15 10:43 Wound Center Nurse 1 #4 Hallux med -Combined with other wound No -Current Size (cm) - Length 0.5 1.0 -Current Size (cm) - Width 0.3 0.5 -Current Size (cm) - Depth 0.1 0.1 -Total Square Cm 0.15 0.50 -Date of Last Picture (Recall this 08/04/23 field) -Photo Taken Yes No -Epithelialization Large 67-100% Small 1-33% -Tunneling No No -Undermining/Tunneling No No -Circular Undermining No No -Exudate Amt Small -Exudate Type Serous -Wound Margin Distinct, Distinct, Outline Outline Attached Attached -Granulation Amt Medium (34-66%) Medium (34-66%) -Granulation Quality Red Red -Slough/Fibrin Yes -Necrosis Amt Medium (34-66%) Medium (34-66%) -Necrotic Tissue Type Eschar -Structure Exposed N/A -Texture (Taylor-wound Skin Appearance) Assessed, Assessed Localized Edema -Moisture (Taylor-wound Skin Appearance) Assessed,Dry/ Assessed Scaly -Color (Taylor-wound Skin Appearance) Assessed Assessed -Temperature (Taylor-wound Skin No Abnormality No Abnormality Appearance) (Pt Warm) (Pt Warm) -Tenderness on Palpation (Taylor-wound No No Skin Appearance) -Ulcer Cleansing Rinsed/ Soap and Water Irrigated with Saline -Foul Odor after Cleansing No No -Anesthetic Used 5% Lidocaine 5% Lidocaine Gel Gel #5 2nd toe -Combined with other wound No -Current Size (cm) - Length 0.8 1.0 -Current Size (cm) - Width 0.4 1.0 -Current Size (cm) - Depth 0.1 0.1 -Total Square Cm 0.32 1.00 -Date of Last Picture (Recall this 08/04/23 field) -Photo Taken Yes No -Epithelialization Large 67-100% Medium 34-66% -Tunneling No No -Undermining/Tunneling No No -Circular Undermining No No -Exudate Amt Small Medium -Exudate Type Serous Yellow/Green -Wound Margin Distinct, Distinct, Outline Outline Attached Attached -Granulation Amt Medium (34-66%) Medium (34-66%) -Granulation Quality Red Red -Slough/Fibrin Yes -Necrosis Amt Medium (34-66%) Small (1-33%) -Necrotic Tissue Type Eschar Adherent Slough -Structure Exposed None/Limited to Skin Breakdown -Texture (Taylor-wound Skin Appearance) Assessed, Assessed Scarring -Moisture (Taylor-wound Skin Appearance) Assessed,Dry/ Assessed Scaly -Color (Taylor-wound Skin Appearance) Assessed Assessed -Temperature (Taylor-wound Skin No Abnormality No Abnormality Appearance) (Pt Warm) (Pt Warm) -Tenderness on Palpation (Taylor-wound No Skin Appearance) -Ulcer Cleansing Rinsed/ Soap and Water Irrigated with Saline -Foul Odor after Cleansing No -Anesthetic Used 5% Lidocaine 5% Lidocaine Gel Gel Left Calf (cm) 35.5 Left Ankle (cm) 23.5 WC - Nurse 2 - General Ulcer CM Notes Start: 08/04/23 10:14 Freq: Status: Active Protocol: Activity Type Activity Date Activity User E-sign Co-sign Detail Recorded Client Recorded Date Recorded By Document 08/04/23 10:35 Desktop 08/04/23 10:36 Document 08/18/23 10:58 Laptop 08/18/23 11:01 08/04/23 08/18/23 10:35 10:58 Wound Center Nurse 2 #4 [facility] med -Time 10:36 -Correct Patient Yes No -Correct Side, Site, Position Yes No -Correct Procedure Yes No -Procedure Performed Yes No -Type of Procedure Debridement -Clinical Debridement Subcutaneous -Tissue Removed Subcutaneous -Post Debridement (cm) - Length 2.0 0 -Post Debridement (cm) - Width 0.5 0 -Post Debridement (cm) - Depth 0.1 0 -Total Square (Post) (cm) 1.00 0 -Area of Debridement (cm) - Length 2.0 0 -Area of Debridement (cm) - Width 0.5 0 -Total Square (Area) (cm) 1.00 0 -Tunneling No -Undermining/Tunneling No -Circular Undermining No -Wound/Ulcer Outcome Not Healed Healed- Epithelialized -Ulcer Cleansing Rinsed/ Irrigated with Saline -Foul Odor after Cleansing No -Bioengineered Tissue No -Bleeding Controlled with Pressure -Treatment Response Procedure Tolerated Well -Offloading No -Debridement - Subq, 1st 20sq cm No #5 2nd toe -Time 10:35 11:00 -Correct Patient Yes Yes -Correct Side, Site, Position Yes Yes -Correct Procedure Yes Yes -Procedure Performed Yes Yes -Type of Procedure Debridement Debridement -Clinical Debridement Subcutaneous Subcutaneous -Tissue Removed Subcutaneous Subcutaneous -Post Debridement (cm) - Length 1 0.8 -Post Debridement (cm) - Width 0.7 0.4 -Post Debridement (cm) - Depth 0.1 0.1 -Total Square (Post) (cm) 0.7 0.32 -Area of Debridement (cm) - Length 1.0 0.8 -Area of Debridement (cm) - Width 0.7 0.4 -Total Square (Area) (cm) 0.70 0.32 -Tunneling No No -Undermining/Tunneling No No -Circular Undermining No No -Wound/Ulcer Outcome Not Healed Not Healed -Ulcer Cleansing Rinsed/ Rinsed/ Irrigated with Irrigated with Saline Saline -Foul Odor after Cleansing No No -Bioengineered Tissue No No -Bleeding Controlled with Pressure Pressure -Treatment Response Procedure Procedure Tolerated Well Tolerated Well -Offloading No No -Debridement - Subq, 1st 20sq cm Yes Yes Pain Scale: 0-10 Numeric Is Patient Pain Free? Yes Yes - Nurse 3 - General Ulcer D/C NN Start: 08/04/23 10:14 Freq: Status: Active Protocol: Activity Type Activity Date Activity User E-sign Co-sign Detail Recorded Client Recorded Date Recorded By Document 08/04/23 11:09 Desktop 08/04/23 11:09 08/04/23 11:09 Wound Care Center Nurse 3 #4 Hallux med -Primary Dressing Covered/Secured with Dry Gauze & Roll Gauze, Secured with Tape #5 2nd toe -Primary Dressing Covered/Secured with Dry Gauze & Roll Gauze, Secured with Tape Pain Scale: 0-10 Numeric Is Patient Pain Free? Yes Assessment/Plan Assessment/Plan (1) Non-pressure chronic ulcer of other part of left foot with fat layer exposed: CODE(S): L97.522 - Non-pressure chronic ulcer of other part of left foot with fat layer exposed PLAN: Patient was examined and evaluated. All findings were discussed with the patient. All questions were answered to the patient's satisfaction. Excision debridement down to and including subcutaneous tissue with a number 5 mm dermal curette to the left second digit. Predebridement measurement is 0.6 x 0.3 x 0.1 cm. Postdebridement measurement is 0.8 x 0.4 x 0.1 cm. Continue Betadine paint and gauze with compression to the left lower extremity. Follow-up at the wound care center with Dr. Calixto in 2 week. (2) Venous insufficiency of left lower extremity: CODE(S): I87.2 - Venous insufficiency (chronic) (peripheral)
== END 2023-08-22 23:59 | disposition home or self-care (01) ==
LOC: WC 10:00
PROVIDERS: PCP Family Medicine; Referring Provider Physician Assistant; Visit Provider Podiatrist Foot & Ankle Surgery
DX: L97.522 Non-pressure chronic ulcer of other part of left foot with fat layer exposed (principal); R60.0 Localized edema; I87.2 Venous insufficiency (chronic) (peripheral); L03.116 Cellulitis of left lower limb; Z86.718 Personal history of other venous thrombosis and embolism
CPT/HCPCS: 11042

== ENCOUNTER → 2025-04-30 | Outpatient (CLI) | payer MEDICARE, SELFPAY ==
--- OUTSIDE RECORDS SUMMARY | 2025-04-30 04:33 | XMS RPT_ITS | CCD ---
Author Organization [facility] Care Team Providers Care Otolaryngologist Name Role Phone PAPARIZOS, BRIA C Unavailable Unavailable PAPARIZOS, BRIA C Unavailable Unavailable PAPARIZOS, BRIA C Unavailable Unavailable PAPARIZOS, BRIA C Unavailable Unavailable Hien COMMUNITY SERVICE TECHNICIAN, COMMUNITY SERVICE TECHNICIAN-C Adele E Attending Provider [phone] Hien COMMUNITY SERVICE TECHNICIAN, COMMUNITY SERVICE TECHNICIAN-C Adele E Referring Provider [phone] Hien COMMUNITY SERVICE TECHNICIAN, COMMUNITY SERVICE TECHNICIAN-C Adele E Other Provider Dr. Samson Clement Primary Care Provider Dr. Brandt Pang Attending Provider [phone] Samson Clement Referring Provider Hien COMMUNITY SERVICE TECHNICIAN, COMMUNITY SERVICE TECHNICIAN-C Adele E Attending Provider [phone] Hien COMMUNITY SERVICE TECHNICIAN, COMMUNITY SERVICE TECHNICIAN-C Adele E Referring Provider Hien COMMUNITY SERVICE TECHNICIAN, COMMUNITY SERVICE TECHNICIAN-C Adele E Other Provider Dr. Samson Clement Primary Care Provider Dr. Brandt Pang Attending Provider Dr. Samson Clement Referring Provider Hien COMMUNITY SERVICE TECHNICIAN, COMMUNITY SERVICE TECHNICIAN-C Adele E Attending Provider Hien COMMUNITY SERVICE TECHNICIAN, COMMUNITY SERVICE TECHNICIAN-C Adele E Referring Provider Hien COMMUNITY SERVICE TECHNICIAN, COMMUNITY SERVICE TECHNICIAN-C Adele E Other Provider Dr. Samson Clement Primary Care Provider Dr. Samson Clement Primary Care Provider Dr. Samson Clement Referring Provider Dr. Brandt Pang Attending Provider [phone] Brandt Pang Referring Provider [phone] Brandt Pang Other Provider RENÉE CLEMENT DO Primary Care Physician Genoveva PT, Sabrina Unavailable Unavailable JORDI Aceves Attending Provider [phone] Samson Clement Primary Care Provider Dr. Brandt Pang Attending Provider [phone] Brandt Pang Referring Provider [phone] Brandt Pang Other Provider Dr. Samson Clement Referring Provider JORDI Aceves Attending Provider [phone] JORDI Aceves Referring Provider [phone] Samson Clement Primary Care Provider Dr. Brandt Pang Attending Provider [phone] Brandt Pang Referring Provider [phone] Brandt Pang Other Provider Dr. Samson Clement Referring Provider JORDI Aceves Attending Provider [phone] Tobias Pickard MD Primary Care Provider DA QUINTANILLA, TACOS Horn Primary Care Physician RENÉE CLEMENT DO Primary Care UnavailDALTON Mensah MD Attending Unavailable DA QUINTANILLA, TACOS Horn Attending Unavailable TACOS DYE MD Primary Care Unavailable RENÉE CLEMENT DO Primary Care Unavailmarily NIXON PROCESS SAFETY MANAGEMENT ENGINEER-DIRECTOR OF SUPPLY CHAIN, SABRINA M Admitting Unavaila abbe NIXON APRN-DIRECTOR OF SUPPLY CHAIN, SABRINA M Attending Unavaila abbe BARTLETT MD, DR TACOS Garcia Consulting Unavailab brent CABELLO MD, HORTENCIA Referring Unavailable TACOS DYE MD Attending Unavailable TACOS DYE MD Primary Care Unavailable Gisselle Saenz S Unavailable Unavailable Tacos Dye MD Primary Care Provider [phone] HUSSAIN PROCESS SAFETY MANAGEMENT ENGINEER-DIRECTOR OF SUPPLY CHAIN, SABRINA Galvez Admitting Unavailalexsander abbe THRASHER MISBAH PARKER Attending Unavailable TACOS DYE MD Primary Care Unavailable TACOS DYE MD Primary Care Unavailable PRATIMA WILLETT-CHACE, JOSUÉ Andrade Attending RENA Perez Admitting Unavailable RENA LEUNG Attending Unavailable GINGER ANDRES Referring Unavailable TACOS DYE Primary Care Unavailable STAN ANGEL Consulting Unavailable Samson Clement Primary Care Unavailable Evelia NGUYEN, Margoth Referring Unavailable Evelia COMMUNITY SERVICE TECHNICIAN, Margoth Attending Unavailable Medications Current Medications Medication Drug Class(es) Dates Sig (Normalized) Sig (Original) acetaminophen 325 mg oral capsule (7 sources) Start: 09-07-2023 Tylenol 325 mg oral capsule Dose : 650 mg = 2 cap(s), Oral, q4h, PRN for pain, 0 Refill(s) Start Date: 09/07/23 Status: Ordered take 1 tablet by betzaida th every eight hours as needed acetaminophen (TYLENOL EXTRA STRENGTH) 5 00 mg tablet Take 500 mg by mouth every 8 hours as needed. Active aspirin 81 mg oral tablet (20 sources) Platelet Aggregation Inhibitor, Nonsteroidal Anti-inflammatory Drug Start: 03-16-2025 End: 03-30-2025 take 1 tablet by mouth once daily Aspirin 81 mg tab Take 1 tablet by mouth once daily for 14 days. 14 tablet 03/16/2025 03/30/2025 Active Start: 05-28-2022 take 325 mg by mouth once philippe y Aspirin Active 325 MG PO DAILY May 27, 2022 11:00pm Start: 01-15-2021 aspirin 325 mg oral tablet Dose : 325 mg = 1 tab(s), Oral, Daily, 0 Refill(s) Start Date: 01/15/21 Status: Ordered aspirin (ASPIR-8 1 ORAL) Take by mouth. Active aspirin (ASPIR-8 1 ORAL) Take by mouth. 0 Active ciprofloxacin 500 mg oral tablet (5 sources) Quinolone Antimicrobial Start: 07-10-2024 End: 07-15-2024 Cipro 500 mg oral tablet Dose : 500 mg = 1 tab(s), Oral, q12h, X 5 day(s), # 10 tab(s), 0 Refill(s), 07/15/24 12:13:00 PM EST, Pharmacy: [facility] #[id number], UTI (urinary tract infection), 180, cm, 04/26/24 14:51:00 EDT, Height, 95.45, kg, 04/26/24 14:51:00 EDT, Dosing Weight Start Date: 07/10/24 Stop Date: 07/15/24 Status: Ordered Start: 03-22-2024 End: 04-01-2024 ciprofloxacin 750 mg oral ta blet Dose : 750 mg = 1 tab(s), Oral, q12h, X 10 day(s), # 20 tab(s), 0 Refill(s), 04/01/24 2:55:00 PM EDT, Pharmacy: [facility] #[id number], Spinal stenosis Chronic polyneuropathy, 180, cm, 03/22/24 14:52:00 EDT, Height, 95.45, kg, 03/22/24 14:52:00 EDT, Dosing Weight Start Date: 03/22/24 Stop Date: 04/01/24 Status: Ordered Start: 07-25-2023 ciprofloxacin 750 mg oral tablet See Instructions, 1 tab(s) Oral q12h, 0 Refill(s), 94.54 Start Date: 07/25/23 Status: Ordered Start: 07-21-2023 take 750 mg by mouth twice daily Ciprofloxacin Hcl Active 750 MG PO TWICE A DAY July 21, 2023 12:00am clotrimazole 10 mg/ml topical cream (2 sources) Azole Antifungal Start: 06-30-2023 Clotrimazole Active 1 APPLIC TOPICAL TWICE A DAY June 30, 2023 12:00am diphenhydrAMINE hydrochloride 25 mg oral capsule (5 sources) Histamine-1 Receptor Antagonist take 1 capsule by mouth every twenty-four hours as needed diphenhydrAMINE (ZZZQUIL) 25 mg capsule Take 25 mg by mouth at bedtime as needed. Active fluticasone propionate 0.05 mg/actuat metered dose nasal spray (2 sources) Corticosteroid take 1 spray(s) nasal route once daily fluticasone (FLONASE ALLERGY RELIEF) 50 mcg/actuation nasal spray Use 1 Disputanta in each nostril once daily. 0 Active Food Supplement, Lactose-Free (ENSURE ACTIVE PROTEIN-MUSCLE) liqd (3 sources) Food Supplement, Lactose-Free (ENSURE ACTIVE PROTEIN-MUSCLE) liqd Take 8 ounces by mouth once daily. Active hydroCHLOROthiazide 25 mg / triamterene 37.5 mg oral tablet (20 sources) Potassium-sparing Diuretic, Thiazide Diuretic Start: 05-28-2022 take 1 tablet by mouth once daily Triamterene-Hydroch lorothiazid Active 1 TABLET PO DAILY May 28, 2022 2:37pm Start: 05-28-2022 End: 05-28-2022 Triamterene-Hydrochlorothiaz id Discontinued TAB PO May 27, 2022 11:00pm May 28, 2022 2:37pm Start: 05-11-2021 End: 03-30-2025 take 1 tablet by mouth once daily triamterene-hydroCHLOROthiazide (MAXZIDE -25) 37.5-25 mg per tablet Take 1 tablet by mouth once daily for 14 days. 14 tablet 03/16/2025 03/30/2025 Active ibuprofen 200 mg oral tablet (5 sources) Nonsteroidal Anti-inflammatory Drug take 1 tablet by mouth every six hours as needed ibuprofen (ADVIL) 200 mg tablet Take 200 mg by mouth every 6 hours as needed. Active L. Acidophilus/Bifid. Animalis (Daily Probiotic) 2.5 billion cell capsule (2 sources) Start: 07-14-20 take 1 capsule by mouth once daily, then take 2.5 capsules by mouth once daily L. Acidophilus/Bifid. Animalis (Daily Probiotic) 2.5 billion cell capsule Active CAP PO DAILY July 14, 2023 12:00am Multiple Vitamins oral tablet (6 sources) Start: 01-16-20 take 1 tablet by mouth once daily Multiple Vitamins oral tablet Dose = 1 tab(s), Oral, Daily, # 30 tab(s), 0 Refill(s) Start Date: 01/15/21 Status: Ordered Medication Dispense Status: Completed Quantity: 30.0 Unit: tab(s) Total Allowed Fills: 1 Fills Dispensed: 0 Start: 01-15-2021 take 1 tablet by betzaida th once daily Multiple Vitamins oral tablet Dose = 1 tab(s), Oral, Daily, # 30 tab(s), 0 Refill(s) Start Date: 01/15/21 Status: Ordered Quantity: 30.0 Unit: tab(s) Repeat number: 1 Start: 01-15-2021 take 1 tablet by betzaida th once daily Multiple Vitamins oral tablet Dose = 1 tab(s), Oral, Daily, # 30 tab(s), 0 Refill(s) Start Date: 01/15/21 Status: Ordered multivit-min/FA/lycopen/lute in (CENTRUM SILVER MEN ORAL) (5 sources) multivit-min/FA/ lycopen/lutein (CENTRUM SILVER MEN ORAL) Take by mouth. Active multivit-min/FA/ lycopen/lutein (CENTRUM SILVER MEN ORAL) Take by mouth. 0 Active Wefjudkfoeph-Lnglctkb-Dtpmth (8 sources) Start: 05-28-2022 take 1 tablet by mouth once daily Kvdspinlwvtj-Haqdojxu-Naehsn Active 1 TABLET PO DAILY May 27, 2022 11:00pm Start: 05-28-2022 take 1 tablet by betzaida once daily Pgdwkdkufauo-Imzcnsqn-Nthqgh Active 1 TA BLET PO DAILY May 28, 2022 12:00am oxyCODONE hydrochloride 5 mg oral tablet (2 sources) Opioid Agonist Start: 03-10-2025 End: 03-17-2025 take 1 tablet by mouth every eight hours as needed oxyCODONE IR (ROXICODONE) 5 mg immediate release tablet Indications: History of lumbar fusion Take 1 tablet by mouth every 8 hours as needed for up to 7 days. 7 tablet 03/10/2025 03/17/2025 Active pantoprazole 40 mg delayed release oral tablet (20 sources) Proton Pump Inhibitor Start: 02-20-2019 End: 03-30-2025 take 1 tablet by mouth once daily pantoprazole DR (PROTONIX) 40 mg tablet Take 1 tablet by mouth once daily for 14 days. 14 tablet 03/16/2025 03/30/2025 Active polyethylene glycol 3350 71442 mg powder for oral solution (5 sources) Osmotic Laxative Start: 02-29-2020 take 1 dose by mouth once daily as needed polyethylene glycol 3350 (MIRALAX, GLYCOLAX) 17 gram packet Take 1 Packet by mouth once daily as needed. 02/29/2020 Active polyethylene glycol 400 4 mg/ml / propylene glycol 3 mg/ml ophthalmic solution (2 sources) PEG 400-propylen e glycol (SYSTANE ULTRA) 0.4-0.3 % ophthalmic solution Use in both eyes as needed. 0 Active pravastatin sodium 10 mg oral tablet (20 sources) HMG-CoA Reductase Inhibitor Start: 04-14-2023 take 1 mg by mouth once daily Pravastatin Active MG PO DAILY April 13, 2023 11:00pm Start: 04-09-2021 End: 03-30-2025 take 1 tablet by mouth once daily pravastatin (PRAVACHOL) 10 mg tablet Take 1 tablet by mouth once daily for 14 days. 14 tablet 03/16/2025 03/30/2025 Active predniSONE 10 mg oral tablet (1 source) Start: 07-27-2023 End: 08-10-2023 prednisone 10mg tab (TAPER) 59-79-85-52-37-33-5mg x 2days/dose, Oral, qDay, 2S5yeda,9D0lyjh,9Y4mnbt,4K3dqhy,3G7cplr,9H1mqco, X2 days., # 43 tab(s), 0 Refill(s), other reason (Rx) Start Date: 07/27/23 Stop Date: 08/10/23 Status: Ordered Probiotic (1 source) Start: 07-25-2023 Probiotic q24h, 0 Refill(s) Start Date: 07/25/23 Status: Ordered Super B Complex oral tablet (4 sources) Start: 03-22-2024 take 1 tablet by mouth once daily Super B Complex oral tablet Dose = 1 tab (s), Oral, qDay, 0 Refill(s) Start Date: 03/22/24 Status: Ordered Medication Dispense Status: Completed Total Allowed Fills: 1 Fills Dispensed: 0 Start: 03-22-2024 take 1 tablet by betzaida th once daily Super B Complex oral tablet Dose = 1 tab(s), Oral, qDay, 0 Refill(s) Start Date: 03/22/24 Status: Ordered Repeat number: 1 Start: 03-22-2024 take 1 tablet by betzaida th once daily Super B Complex oral tablet Dose = 1 tab(s), Oral, qDay, 0 Refill(s) Start Date: 03/22/24 Status: Ordered Vitamin B Complex (13 sources) Start: 05-28-2022 take 1 tablet by betzaida th once daily Vitamin B Complex Active 1 TABLET PO DAILY May 27, 2022 11:00pm Start: 05-28-2022 take 1 tablet by mouth once da arthur Vitamin B Complex Active 1 TABLET PO DAILY May 28, 2022 12:00am VITAMIN B COMPLE X (B-COMPLEX ORAL) Take by mouth once daily. Active VITAMIN B COMPLE X (B-COMPLEX ORAL) Take by mouth once daily. 0 Active Vitamin B Complex oral capsule (2 sources) Start: 01-15-2021 take 1 capsule by mouth once daily Vitamin B Complex oral capsule Dose = 1 cap(s), Oral, Daily, 0 Refill(s) Start Date: 01/15/21 Status: Ordered Completed/Discontinued Medications Medication Drug Class(es) Dates Sig (Normalized) Sig (Original) cephalexin 500 mg oral capsule (5 sources) Cephalosporin Antibacterial Start: 06-18-2023 End: 06-23-2023 take 500 mg by mouth every six hours Cephalexin Discontinued 500 MG PO EVERY 6 HOURS 09 01June 17, 2023 11:00pm June 22, 2023 11:05pm Start: 06-09-2023 End: 06-14-2023 take 500 mg by mouth every six hours Cephalexin Discontinued 500 MG PO EVERY 6 HOURS 09 01June 08, 2023 11:00pm June 13, 2023 11:04pm doxycycline hyclate 100 mg oral capsule (12 sources) Tetracycline-class Drug Start: 07-08-2023 End: 07-22-2023 take 100 mg by mouth twice daily Doxycycline Hyclate Discontinued 100 MG PO TWICE A DAY July 08, 2023 12:00am July 22, 2023 12:04am Start: 04-02-2022 End: 05-28-2022 take 100 mg by mouth twice daily Doxycycline Monohydrate Discontinued 100 MG PO TWICE A DAY April 01, 2022 11:00pm May 28, 2022 2:04pm levothyroxine sodium 0.025 mg oral tablet (20 sources) l-Thyroxine Start: 03-22-2024 End: 03-17-2025 levothyroxine 25 mcg (0.025 mg) oral tablet Dose : 25 mcg = 1 tab(s), Oral, qDay, # 90 tab(s), 3 Refill(s), Pharmacy: [facility] #[id number], 180, cm, 03/22/24 14:52:00 EDT, Height, kg, 03/22/24 14:52:00 EDT, Dosing Weight Start Date: 03/22/24 Stop Date: 03/17/25 Status: Ordered Medication Dispense Status: Completed Quantity: 90.0 Unit: tab(s) Total Allowed Fills: 4 Fills Dispensed: 0 Start: 04-14-2023 levothyroxine 25 mcg (0.025 mg) oral tablet Dose : 25 mcg = 1 tab(s), Oral, qDay, # 90 tab(s), 2 Refill(s), Pharmacy: [facility] #[id number], 180.3, cm, 03/23/23 12:51:00 EDT, Height, kg, 03/23/23 12:51:00 EDT, Dosing Weight Start Date: 04/14/23 Status: Ordered Start: 03-10-2021 End: 03-30-2025 take 1 tablet by mouth once daily levothyroxine (SYNTHROID) 25 mcg tablet Take 1 tablet by mouth once daily for 14 days. 14 tablet 03/16/2025 03/30/2025 Active sulfamethoxazole 800 mg / trimethoprim 160 mg oral tablet (5 sources) Dihydrofolate Reductase Inhibitor Antibacterial, Sulfonamide Antimicrobial Start: 06-18-2023 End: 06-25-2023 take 1 tablet by mouth twice daily Sulfamethoxazole-Trimethoprim (Bactrim Ds) 800-160 mg tablet Discontinued 1 TABLET PO TWICE A DAY 14 June 17, 2023 11:00pm June 24, 2023 11:05pm Start: 06-09-2023 End: 06-16-2023 take 1 tablet by mouth twice daily Sulfamethoxazole-Trimethoprim (Bactrim D s) 800-160 mg tablet Discontinued 1 TABLET PO TWICE A DAY 14 June 08, 2023 11:00pm June 15, 2023 11:10pm Problems Active Problems Problem Classification Problem Date Documented Da te Episodic/Chronic Cataract (20 sources) Combined 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, left eye; Translations: [Combined 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, right eye] Onset: 7 Resolved: 8 08-24-2017 Chronic Chronic ulcer of skin (20 sources) Ulcer of lower extremity; Translations: [Non-pressure chronic ulcer of unspecified part of right lower leg with fat layer exposed] Onset: 4 Chronic Disorders of lipid metabolism (8 sources) Hyperlipidemia; Translations: [Hyperlipidemia, unspecified] 01-15-2021 Chronic E Codes: Fall (6 sources) Fall in home 03-31-2021 Esophageal disorders (7 sources) Gastroesophageal reflux disease without esophagitis; Translations: [Gastro-esophageal reflux disease without esophagitis] Onset: 6 10-19-2019 Chronic Essential hypertension (11 sources) Hypertensive disorder; Translations: [Essential hypertension] Onset: 3 01-15-2021 Chronic Fracture of lower limb (6 sources) Fracture of ankle 03-31-2021 Episodic Malaise and fatigue (12 sources) Asthenia; Translations: [Weakness] Onset: 5 Resolved: 5 Episodic Mycoses (4 sources) Tinea pedis; Translations: [Tinea pedis] 07-14-2023 Episodic Open wounds of extremities (20 sources) Injury of lower extremity; Translations: [Unspecified open wound, right lower leg, initial encounter] Episodic Open wounds of extremities (8 sources) Disorder of foot; Translations: [Unspecified open wound, left foot, initial encounter] 06-10-2023 Episodic Open wounds of head; neck; and trunk (3 sources) Laceration without foreign body of scalp, initial encounter; Translations: [Open wound of scalp, without mention of complication] 05-26-2023 Episodic Other congenital anomalies (5 sources) Congenital spondylolisthesis; Translations: [Congenital spondylolisthesis] Onset: 0 10-19-2019 Chronic Other connective tissue disease (6 sources) Muscle weakness of limb 03-18-2023 Episodic Other connective tissue disease (4 sources) Muscle weakness of upper limb 03-22-2024 Episodic Other connective tissue disease (2 sources) Other symptoms and signs involving the musculoskeletal system; Translations: [Other symptoms and signs involving the musculoskeletal system] Onset: 4 Episodic Other connective tissue disease (3 sources) Recurrent falls ; Translations: [Repeated falls] Onset: 5 Episodic Other connective tissue disease (1 source) Repeated falls; Translations: [Repeated falls] Onset: 5 Episodic Other connective tissue disease (1 source) Arthrodesis status; Translations: [History of lumbar fusion] Onset: 5 Episodic Other diseases of veins and lymphatics (3 sources) Venous stasis edema of left lower limb; Translations: [Venous insufficiency (chronic) (peripheral)] 04-28-2023 Episodic Other diseases of veins and lymphatics (11 sources) Venous insufficiency (chronic) (peripheral); Translations: [Venous (peripheral) insufficiency, unspecified] 05-26-2023 Episodic Other diseases of veins and lymphatics (1 source) Venous insufficiency of leg; Translations: [Venous insufficiency (chronic) (peripheral)] 07-27-2023 Episodic Other gastrointestinal disorders (7 sources) Dysphagia; Translations: [Dysphagia, unspecified] Onset: 5 03-22-2024 Episodic Other gastrointestinal disorders (1 source) Dysphagia, unspecified; Translations: [Dysphagia, unspecified] Onset: 5 Episodic Other liver diseases (6 sources) Enzyme level - finding 02-03-2021 Episodic Other lower respiratory disease (6 sources) Cough 03-31-2021 Episodic Other male genital disorders (3 sources) Pain in scrotum ; Translations: [Scrotal pain] Onset: 5 Episodic Other male genital disorders (1 source) Scrotal pain; Translations: [Scrotal pain] Onset: 5 Episodic Other nervous system disorders (17 sources) Polyneuropathy; Translations: [Polyneuropathy, unspecified] Onset: 3 03-29-2022 Chronic Other nervous system disorders (20 sources) Polyneuropathy, unspecified; Translations: [Unspecified hereditary and idiopathic peripheral neuropathy] Onset: 4 Chronic Other nervous system disorders (6 sources) Drug-induced myopathy 03-23-2023 Episodic Other non-traumatic joint disorders (6 sources) Knee pain 06-16-2021 Episodic Other non-traumatic joint disorders (1 source) Joint derangement; Translations: [Joint derangement, unspecified] Onset: 5 Episodic Other non-traumatic joint disorders (2 sources) Knee joint hypermobility 07-05-2025 Episodic Other non-traumatic joint disorders (1 source) Joint derangement, unspecified; Translations: [Joint derangement, unspecified] Onset: 5 Episodic Other nutritional; endocrine; and metabolic disorders (5 sources) Obese class I; Translations: [Obesity, unspecified] Onset: 0 02-22-2020 Chronic Other screening for suspected conditions (not mental disorders or infectious disease) (1 source) Encounter for screening, unspecified; Translations: [Encounter for screening, unspecified] Onset: 5 Episodic Other upper respiratory infections (4 sources) Chronic sinusitis 03-22-2024 Chronic Residual codes; unclassified (10 sources) Bilateral lower limb edema; Translations: [Localized edema] 03-29-2022 Episodic Residual codes; unclassified (20 sources) Localized edema; Translations: [Edema] Episodic Residual codes; unclassified (6 sources) Bilateral lower leg edema 01-15-2021 Episodic Residual codes; unclassified (6 sources) Noncompliance with treatment 03-16-2022 Episodic Residual codes; unclassified (3 sources) Edema of foot; Translations: [Localized edema] 06-10-2023 Episodic Skin and subcutaneous tissue infections (5 sources) Cellulitis of left foot; Translations: [Cellulitis of left lower limb] 07-21-2023 Episodic Spondylosis; intervertebral disc disorders; other back problems (20 sources) Lumbar post-laminectomy syndrome; Translations: [Lumbosacral spondylosis without myelopathy] Onset: 0 03-18-2023 Chronic Spondylosis; intervertebral disc disorders; other back problems (20 sources) Spinal stenosis; Translations: [Thoracic and lumbosacral neuritis] Onset: 6 01-15-2021 Episodic Thyroid disorders (20 sources) Hypothyroidism; Translations: [Hypothyroidism, unspecified] Onset: 3 03-29-2022 Chronic Unclassified (12 sources) Patient encounter status 01-15-2021 Unclassified (3 sources) Serum testosterone below reference range 04-05-2024 Unclassified (2 sources) Osteoarthritis of joint of bilateral hands 07-25-2024 Unclassified (1 source) OPENED IN ERROR 03-19-2025 Varicose veins of lower extremity (18 sources) Venous stasis ulcer of leg; Translations: [Varicose veins of right lower extremity with ulcer of unspecified site] Episodic Past or Other Problems Problem Classification Problem Date Documented Da te Episodic/Chronic Blindness and vision defects (5 sources) Refractive amblyopia of left eye; Translations: [Refractive amblyopia, left eye] Onset: 07-13-2017 07-13-2017 Episodic Genitourinary symptoms and ill-defined conditions (8 sources) Dysuria; Translations: [Dysuria] Onset: 07-07-2024 06-10-2023 Episodic Other acquired deformities (5 sources) Dorsiflexion deformity of foot; Translations: [Flexion deformity, left ankle and toes] Onset: 10-19-2019 10-19-2019 Episodic Other connective tissue disease (3 sources) History of lumbar fusion; Translations: [Arthrodesis status] Onset: 03-01-2025 Resolved: 03-10-2025 03-10-2025 Episodic Spinal cord injury (3 sources) Injury of thoracic spinal cord; Translations: [Unspecified injury at unspecified level of thoracic spinal cord, initial encounter] Onset: 03-01-2025 Resolved: 03-10-2025 03-10-2025 Chronic Results Test Name Value Interpretation Reference Range Facility CBC W Auto Differential pane l (Bld)on 03-14-2025 Basophils (Bld) [#/Vol] 0.03 10*3/uL Normal <0.11 [facility] Comment on above: Order Comment: Donavon medina Type: BLOOD SPECIMENOrdering Facility: [facility] Address: [address] [place] [address] Performed By: #### 5 7021-8 ####[facility] LABORATORYCLIA [id number] [place] [address] [place] Basophils/100 WBC (Bld) 0.3 % Normal [facility] Comment on above: Order Comment: Donavon medina Type: BLOOD SPECIMENOrdering Facility: [facility] Address: [address] [place] [address] Performed By: #### 5 7021-8 ####[facility] LABORATORYCLIA [id number] [place] [address] [place] Differential cell count method Nom (Bld) Auto Normal [facility] Comment on above: Order Comment: Speci men Type: BLOOD SPECIMENOrdering Facility: [facility] Address: [address] [place] [address] Performed By: #### 5 7021-8 ####[facility] LABORATORYCLIA [id number] [address] [place] Eosinophils (Bld) [#/Vol] 0.18 10*3/uL Normal <0.46 [facility] Comment on above: Order Comment: Speci men Type: BLOOD SPECIMENOrdering Facility: [facility] Address: [address] [place] [address] Performed By: #### 5 7021-8 ####[facility] LABORATORYCLIA [id number] [address] [place] Eosinophils/100 WBC (Bld) 2.1 % Normal [facility] Comment on above: Order Comment: Speci men Type: BLOOD SPECIMENOrdering Facility: [facility] Address: [address] [place] [address] Performed By: #### 5 7021-8 ####[facility] [facility]ATORYCLIA [id number] [address] [place] Erythrocyte distribution width (RBC) [Ratio] 13.2 % Normal 11.5-15.0 [facility] Comment on above: Order Comment: Speci men Type: BLOOD SPECIMENOrdering Facility: [facility] Address: [address] [place] [address] Performed By: #### 5 7021-8 ####[facility] LABORATORYCLIA [id number] [address] [place] Hematocrit (Bld) [Volume fraction] 48.1 % Normal 39.0-51.0 [facility] Comment on above: Order Comment: Speci men Type: BLOOD SPECIMENOrdering Facility: [facility] Address: [address] [place] [address] Performed By: #### 5 7021-8 ####[facility] LABORATORYCLIA [id number] [place] [address] [place] Hemoglobin (Bld) [Mass/Vol] 15.8 g/dL Normal 13.0-17.0 [facility] Comment on above: Order Comment: Speci men Type: BLOOD SPECIMENOrdering Facility: [facility] Address: [address] [place] [address] Performed By: #### 5 7021-8 ####[facility] LABORATORYCLIA [id number] [place] [address] [place] Immature granulocytes (Bld) [#/Vol] 0.05 10*3/uL Normal <0.10 [facility] Comment on above: Order Comment: Speci men Type: BLOOD SPECIMENOrdering Facility: [facility] Address: [address] [place] [address] Performed By: #### 5 7021-8 ####[facility] LABORATORYCLIA [id number] [place] [address] [place] Immature granulocytes/100 WBC (Bld) 0.6 % Normal [facility] Comment on above: Order Comment: Speci men Type: BLOOD SPECIMENOrdering Facility: [facility] Address: [address] [place] [address] Performed By: #### 5 7021-8 ####[facility] LABORATORYCLIA [id number] [place] [address] [place] Lymphocytes (Bld) [#/Vol] 1.87 10*3/uL Normal 1.00-4.00 [facility] Comment on above: Order Comment: Speci men Type: BLOOD SPECIMENOrdering Facility: [facility] Address: [address] [place] [address] Performed By: #### 5 7021-8 ####[facility] LABORATORYCLIA [id number] [place] [address] [place] Lymphocytes/100 WBC (Bld) 21.6 % Normal [facility] Comment on above: Order Comment: Speci men Type: BLOOD SPECIMENOrdering Facility: [facility] Address: [address] [place] [address] Performed By: #### 5 7021-8 ####[facility] LABORATORYCLIA [id number] [address] MCH (RBC) [Entitic mass] 31.7 pg Normal 26.0-34.0 [facility] Comment on above: Order Comment: Speci men Type: BLOOD SPECIMENOrdering Facility: [facility] Address: [address] [place] [address] Performed By: #### 5 7021-8 ####[facility] LABORATORYCLIA [id number] [address] MCHC (RBC) [Mass/Vol] 32.8 g/dL Normal 30.5-36.0 [facility] Comment on above: Order Comment: Speci men Type: BLOOD SPECIMENOrdering Facility: [facility] Address: [address] [place] [address] Performed By: #### 5 7021-8 ####[facility] LABORATORYCLIA [id number] [address] [place] MCV (RBC) [Entitic vol] 96.6 fL Normal 80.0-100.0 [facility] Comment on above: Order Comment: Speci men Type: BLOOD SPECIMENOrdering Facility: [facility] Address: [address] [place] [address] Performed By: #### 5 7021-8 ####[facility] LABORATORYCLIA [id number] [address] Monocytes (Bld) [#/Vol] 0.74 10*3/uL Normal <0.87 [facility] Comment on above: Order Comment: Speci men Type: BLOOD SPECIMENOrdering Facility: [facility] Address: [address] [place] [address] Performed By: #### 5 7021-8 ####[facility] LABORATORYCLIA [id number] [place] [address] [place] Monocytes/100 WBC (Bld) 8.5 % Normal [facility] Comment on above: Order Comment: Speci men Type: BLOOD SPECIMENOrdering Facility: [facility] Address: [address] [place] [address] Performed By: #### 5 7021-8 ####[facility] LABORATORYCLIA [id number] [place] [address] [place] Neutrophils (Bld) [#/Vol] 5.79 10*3/uL Normal 1.45-7.50 [facility] Comment on above: Order Comment: Speci men Type: BLOOD SPECIMENOrdering Facility: [facility] Address: [address] [place] [address] Performed By: #### 5 7021-8 ####[facility] LABORATORYCLIA [id number] [place] [address] [place] Neutrophils/100 WBC (Bld) 66.9 % Normal [facility] Comment on above: Order Comment: Speci men Type: BLOOD SPECIMENOrdering Facility: [facility] Address: [address] [place] [address] Performed By: #### 5 7021-8 ####[facility] LABORATORYCLIA [id number] [place] [address] [place] Nucleated RBC (Bld) [#/Vol] 10*3/uL Normal <0.01 [facility] Comment on above: Order Comment: Speci men Type: BLOOD SPECIMENOrdering Facility: [facility] Address: [address] [place] [address] Performed By: #### 5 7021-8 ####[facility] LABORATORYCLIA [id number] [place] [address] [place] Nucleated RBC/100 WBC (Bld) [Ratio] 0.0 /100 WBC Normal [facility] Comment on above: Order Comment: Speci men Type: BLOOD SPECIMENOrdering Facility: [facility] Address: [address] [place] [address] Performed By: #### 5 7021-8 ####[facility] LABORATORYCLIA [id number] [place] [id number] [place] Platelet mean volume (Bld) [Entitic vol] 10.3 fL Normal 9.0-12.7 [facility] Comment on above: Order Comment: Speci men Type: BLOOD SPECIMENOrdering Facility: [facility] Address: [address] [place] [address] Performed By: #### 5 7021-8 ####[facility] LABORATORYCLIA [id number] [place] [id number] [place] Platelets (Bld) [#/Vol] 291 10*3/uL Normal 150-400 [facility] Comment on above: Order Comment: Speci men Type: BLOOD SPECIMENOrdering Facility: [facility] Address: [address] [place] [address] Performed By: #### 5 7021-8 ####[facility] LABORATORYCLIA [id number] [address] [place] RBC (Bld) [#/Vol] 4.98 10*6/uL Normal 4.20-6.00 [facility] Comment on above: Order Comment: Speci men Type: BLOOD SPECIMENOrdering Facility: [facility] Address: [address] [place] [address] Performed By: #### 5 7021-8 ####[facility] LABORATORYCLIA [id number] [address] [place] WBC (Bld) [#/Vol] 8.66 10*3/uL Normal 3.70-11.00 [facility] Comment on above: Order Comment: Speci men Type: BLOOD SPECIMENOrdering Facility: [facility] Address: [address] [place] [address] Performed By: #### 5 7021-8 ####[facility] LABORATORYCLIA [id number] [place] [id number] [place] Comprehensive metabolic 2000 panelon 03-14-2025 Albumin [Mass/Vol] 3.2 g/dL Normal 3.2-5.0 [facility] Comment on above: Order Comment: Speci men Type: BLOOD SPECIMEN [facility] Address: [address] [place] [address] Performed By: #### 2 4323-8, 09559-4 #### [facility] CLIA [id number] [address] [place] [address] [place] ALP [Catalytic activity/Vol] 179 U/L High 45-117 [facility] Comment on above: Order Comment: Speci men Type: BLOOD SPECIMEN Ordering Facility: [facility] Address: [address] [place] [address] Performed By: #### 2 4323-8, #### [facility] CLIA [id number] [address] [place] [address] ALT [Catalytic activity/Vol] 37 U/L Normal 13-61 [facility] Comment on above: Order Comment: Speci men Type: BLOOD SPECIMEN [facility]ing Facility: [facility] Address: [address] [place] [address] Result Comment: Resu lts may be falsely depressed after the administration of Sulfasalazine and/or Sulfapyridine. Performed By: #### 2 4323-8, #### [facility] CLIA [id number] [address] [place], [place] [id number] [place] Anion gap [Moles/Vol] 14 mmol/L Normal 5-16 [facility] Comment on above: Order Comment: Speci men Type: BLOOD SPECIMEN [facility]ing [facility]: [facility] Address: [address] [place] [address] Performed By: #### 2 4323-8, #### [facility] CLIA [id number] [address] [place], [place] [address] [place] [facility] AST [Catalytic activity/Vol] Normal [facility] Comment on above: Order Comment: Speci men Type: BLOOD SPECIMEN Ordering Facility: [facility] Address: [address] [place] [address] Result Comment: Unab le to assay due to interference from hemolysis. Suggest reorder as clinically indicated. Results may be falsely depressed after the administration of Sulfasalazine and/or Sulfapyridine. Performed By: #### 2 4323-8, #### [facility] CLIA [id number] [address] [place] [address] [place] Bilirubin [Mass/Vol] 0.5 mg/dL Normal 0.2-1.0 [facility] Comment on above: Order Comment: Speci men Type: BLOOD SPECIMEN [facility]ing Facility: [facility] Address: [address] [place] [address] Performed By: #### 2 4323-8, #### [facility] CLIA [id number] [address] [place] [address] [place] Calcium [Mass/Vol] 9.0 mg/dL Normal 8.5-10.5 [facility] Comment on above: Order Comment: Speci men Type: BLOOD SPECIMEN Ordering Facility: [facility] Address: [address] [place] [address] Performed By: #### 2 4323-8, #### [facility] CLIA [id number] [address] [place] [address] [place] Chloride [Moles/Vol] 98 mmol/L Normal 98-107 [facility] Comment on above: Order Comment: Speci men Type: BLOOD SPECIMEN Ordering Facility: [facility] Address: [address] [place] [address] Performed By: #### 2 4323-8, #### [facility] CLIA [id number] [address] [place], [place] [address] [place] CO2 [Moles/Vol] 20 mmol/L Low 21-32 [facility] Comment on above: Order Comment: Speci men Type: BLOOD SPECIMEN [facility]ing Facility: [facility] Address: [address] [place] [address] Performed By: #### 2 4323-8, 50394-9 #### [facility] CLIA [id number] [address] [place] [address] [place] Creatinine [Mass/Vol] 0.50 mg/dL Normal 0.50-1.40 [facility] Comment on above: Order Comment: [place] Type: BLOOD SPECIMEN Ordering Facility: [facility] Address: [address] [place] [address] Result Comment: Seema ents receiving either N-Acetylcysteine (NAC) or Metamizole prior to venipuncture, may have falsely depressed results. Performed By: #### 2 4323-8, #### [facility] CLIA [id number] [address] [place] [address] [place] eGFRcr SerPlBld CKD-EPI 2020 107 mL/min/1.73m??? Normal >=60 [facility] Comment on above: Order Comment: [place] Type: BLOOD SPECIMEN [facility]ing Facility: [facility] Address: [address] [place] [address] Result Comment: Verito mated Glomerular Filtration Rate (eGFR) is calculated using the 2020 CKD-EPI creatinine equation. This equation utilizes serum creatinine, sex, and age as parameters. The creatinine assay has traceable calibration to isotope dilution-mass spectrometry. Refer to KDIGO guidelines for clinical interpretation. In patients with unstable renal function, e.g. those with acute kidney injury, the eGFR may not accurately reflect actual GFR. Performed By: #### 2 4323-8, #### [facility] CLIA [id number] [address] [place], [place] [address] [place] Glucose [Mass/Vol] 130 mg/dL High 70-100 [facility] Comment on above: Order Comment: [place] Type: BLOOD SPECIMEN [facility]: [facility] Address: [address] [place] [address] Result Comment: The [place] [employer] (ADA) provides guidance for cutoff values for fasting glucose and random glucose. The ADA defines fasting as no caloric intake for at least 8 hours. Fasting plasma glucose results between 100 to 125 mg/dL indicate increased risk for diabetes (prediabetes). Fasting plasma glucose results greater than or equal to 126 mg/dL meet the criteria for diagnosis of diabetes. In the absence of unequivocal hyperglycemia, results should be confirmed by repeat testing. In a patient with classic symptoms of hyperglycemia or hyperglycemic crisis, random plasma glucose results greater than or equal to 200 mg/dL meet the criteria for diagnosis of diabetes. Reference: Standards of Medical Care in Diabetes 2016, [place] [employer]. Diabetes Care. 2016.39(Suppl 1). Results may be falsely elevated after the administration of Sulfapyridine. Results may be falsely depressed after the administration of Sulfasalazine. Performed By: #### 2 4323-8, #### [facility] CLIA [id number] [address] [place], [place] [address] [place] Potassium [Moles/Vol] Normal [facility] Comment on above: Order Comment: [place] Type: BLOOD SPECIMEN [facility] Address: [address] [place] [address] Result Comment: Unab le to assay due to interference from hemolysis. Suggest reorder as clinically indicated. Performed By: #### 2 432-8, #### [facility] CLIA [id number] [address] [place] [address] [place] Protein [Mass/Vol] 7.0 g/dL Normal 6.0-8.5 [facility] Comment on above: Order Comment: [place] Type: BLOOD SPECIMEN [facility] Address: [address] [place] [address] Performed By: #### 2 43210-28, #### [facility] CLIA [id number] [address] [place], [place] [address] [place] Sodium [Moles/Vol] 132 mmol/L Low 136-145 [facility] Comment on above: Order Comment: [place] Type: BLOOD SPECIMEN [facility]: [facility] Address: [address] [place], [place] [address] Performed By: #### 2 4323-8, #### [facility] CLIA [id number] [address] [place] [id number] [place] Urea nitrogen [Mass/Vol] 20 mg/dL Normal 7-26 [facility] Comment on above: Order Comment: Speci men Type: BLOOD SPECIMEN [facility]: [facility] Address: [address] [place] [address] Performed By: #### 2 4323-8, 52431-4 #### [facility] CLIA [id number] [address] [place] [address] [place] CBC panel Auto (Bld)on 03-10 Erythrocyte distribution width (RBC) [Ratio] 13.5 % Normal 11.5-15.0 [facility] Comment on above: Order Comment: Speci men Type: BLOOD SPECIMENOrdering Facility: [facility] Address: [address] [place] [address] Performed By: #### 5 8410-2 ####[facility] LABORATORYCLIA [id number] [place] [id number] [place] Hematocrit (Bld) [Volume fraction] 38.1 % Low 39.0-51.0 [facility] Comment on above: Order Comment: Speci men Type: BLOOD SPECIMENOrdering Facility: [facility] Address: [address] [place] [address] Performed By: #### 5 8410-2 ####[facility] LABORATORYCLIA [id number] [place] [id number] [place] Hemoglobin (Bld) [Mass/Vol] 13.1 g/dL Normal 13.0-17.0 [facility] Comment on above: Order Comment: Speci men Type: BLOOD SPECIMENOrdering Facility: [facility] Address: [address] [place] [address] Performed By: #### 5 8410-2 ####[facility] LABORATORYCLIA [id number] [place] [id number] [place] MCH (RBC) [Entitic mass] 32.6 pg Normal 26.0-34.0 [facility] Comment on above: Order Comment: Speci men Type: BLOOD SPECIMENOrdering Facility: [facility] Address: [address] [place] [address] Performed By: #### 5 8410-2 ####[facility] LABORATORYCLIA [id number] [place] [id number] [place] MCHC (RBC) [Mass/Vol] 34.4 g/dL Normal 30.5-36.0 [facility] Comment on above: Order Comment: Speci men Type: BLOOD SPECIMENOrdering Facility: [facility] Address: [address] [place] [address] Performed By: #### 5 8410-2 ####[facility] LABORATORYCLIA [id number] [place] [address] [place] MCV (RBC) [Entitic vol] 94.8 fL Normal 80.0-100.0 [facility] Comment on above: Order Comment: Speci men Type: BLOOD SPECIMENOrdering Facility: [facility] Address: [address] [place] [address] Performed By: #### 5 8410-2 ####[facility] LABORATORYCLIA [id number] [place] [address] [place] Nucleated RBC (Bld) [#/Vol] 10*3/uL Normal <0.01 [facility] Comment on above: Order Comment: Speci men Type: BLOOD SPECIMENOrdering Facility: [facility] Address: [address] [place] [address] Performed By: #### 5 8410-2 ####[facility] LABORATORYCLIA [id number] [place] [address] [place] Platelet mean volume (Bld) [Entitic vol] 9.7 fL Normal 9.0-12.7 [facility] Comment on above: Order Comment: Speci men Type: BLOOD SPECIMENOrdering Facility: [facility] Address: [address] [place] [address] Performed By: #### 5 8410-2 ####[facility] LABORATORYCLIA [id number] [place] [id number] [place] Platelets (Bld) [#/Vol] 252 10*3/uL Normal 150-400 [facility] Comment on above: Order Comment: Speci men Type: BLOOD SPECIMENOrdering Facility: [facility] Address: [address] [place] [address] Performed By: #### 5 8410-2 ####[facility] LABORATORYCLIA [id number] [place] [id number] [place] RBC (Bld) [#/Vol] 4.02 10*6/uL Low 4.20-6.00 [facility] Comment on above: Order Comment: Speci men Type: BLOOD SPECIMENOrdering Facility: [facility] Address: [address] [place], [place] [address] Performed By: #### 5 8410-2 ####[facility] LABORATORYCLIA [id number] [place] [id number] [facility] WBC (Bld) [#/Vol] 6.09 10*3/uL Normal 3.70-11.00 [facility] Comment on above: Order Comment: Speci men Type: BLOOD SPECIMENOrdering Facility: [facility] Address: [address] [place], [place] [address] Performed By: #### 5 8410-2 ####[facility] LABORATORYCLIA [id number] [place] [id number] [facility] CNDSon 03-10-2025 CNDS HNO ID: [id number] Author: RENA LEUNG DO Service: Hospital Medicine Author Type: Physician Type: Discharge Summary Filed: 03/10/2025 15:42 Note Text: DISCHARGE SUMMARY PATIENT NAME: Tam Walsh ADMISSION DATE: 02/26/2025 DISCHARGE DATE: 03/10/2025 ATTENDING PHYSICIAN: Rena Leung DO Code Status: Full Code CONSULTING TEAMS DURING HOSPITALIZATION: Neurology Neurosurgery REASON FOR HOSPITALIZATION: Weakness, multiple falls DIAGNOSIS: Weakness Multiple falls Cervical spine stenosis Hypertension Hyperlipidemia Hypothyroidism Neuropathy GERD OPERATIONS/PROCEDURES DURING HOSPITALIZATION: None HOSPITAL COURSE: Weakness Multiple falls [facility] to [facility] weakness and multiple falls Plan was for him to work with PT/OT with possible placement on discharge He was transferred [facility] to [facility] due to facility's inability to perform MRIs with anesthesia Neurology consulted Following their evaluation and review of imaging lower extremity weakness and falls were believed to be due to increasing debility in an older gentleman with prior back surgeries, upper extremity weakness was thought to be due to spinal stenosis (see below) Patient worked with PT/OT here, placement was recommended on discharge and he was agreeable Cervical spine stenosis This was thought to be contributing [facility] MRI was recommended but was unable to be done as the patient wished to have it done with anesthesia MRI of the cervical spine with anesthesia done here on 02/28, severe foraminal narrowing seen at C4-C5 MRIs and CTs of the thoracic and lumbar spine also done, findings showed extensive postoperative changes but no significant stenosis Spine surgery consutled They were not convinced patient's symptoms could be explained by stenosis alone MRI brain ordered and found to be largely unrevealing Outpatient EMG recommended, neurology referral made on discharge Chronic comorbidities Hypertension Hyperlipidemia Hypothyroidism Neuropathy GERD Patient discharged to SNF on 03/10. PHYSICAL EXAM: BP 134/73 Pulse 75 Temp (Src) 97.8 (Oral) Resp 16 Ht 5' 11 (1.80m) Wt 191 lb 5.8 oz (86.8kg) SpO2 97% BMI 26.70 kg/(m2). General: alert and oriented x3, resting comfortably Neck: supple, no hepatojugular reflux or jugular venous distention, no carotid bruits Lungs: clear to auscultation bilaterally, no wheezing, rales, or rhonchi Cardiac: regular rate and rhythm, normal S1 and S2, no murmurs, gallops, or rubs Abdomen: soft, nontender, nondistended, bowel sounds present Extremities: no edema, cyanosis, or clubbing Skin: no rashes or breakdown Lymphatic: no cervical or supraclavicular lymphadenopathy Neurologic: bilateral lower extremity weakness, cranial nerves II-XII are grossly intact Psychiatry: normal affect, no hallucinations, no suicidal ideation DISCHARGE MEDICATION: Medication List START taking these medications oxyCODONE IR 5 mg immediate release tablet Commonly known as: ROXICODONE Take 1 tablet by mouth every 8 hours as needed for up to 7 days. CHANGE how you take these medications ASPIR-81 ORAL What changed: Another medication with the same name was removed. Continue taking this medication, and follow the directions you see here. CONTINUE taking these medications AdviL 200 mg tablet Generic drug: ibuprofen B-COMPLEX PO CENTRUM SILVER MEN PO ENSURE ACTIVE PROTEIN-MUSCLE Liqd Generic drug: Food Supplement, Lactose-Free levothyroxine 25 mcg tablet Commonly known as: SYNTHROID pantoprazole DR 40 mg tablet Commonly known as: PROTONIX polyethylene glycol 3350 17 gram packet Take 1 Packet by mouth once daily as needed. pravastatin 10 mg tablet Commonly known as: PRAVACHOL triamterene-hydroCHLOROt hiazide 37.5-25 mg per tablet Commonly known as: MAXZIDE-25 TYLENOL EXTRA STRENGTH 500 mg tablet Generic drug: acetaminophen ZzzQuiL 25 mg capsule Generic drug: diphenhydrAMINE STOP taking these medications FLONASE ALLERGY RELIEF 50 mcg/actuation nasal spray Generic drug: fluticasone SYSTANE ULTRA 0.4-0.3 % ophthalmic solution Generic drug: PEG 400-propylene glycol Where to Get Your Medications You can get these medications from any pharmacy Bring a paper prescription for each of these medications oxyCODONE IR 5 mg immediate release tablet FUTURE APPOINTMENTS: No future appointments. Follow Up Appointments Follow-up Appointment When: In: Comment - once discharged from [facility] [place] Dye MD [phone] [facility] [address] PCP Requested Referral Follow-up Appointment When: In 2 weeks Kristina Blanco DO [phone] [address] PCP Requested Referral PATIENT CONDITION AT DISCHARGE: Stable DISCHARGE DISPOSITION: [facility] DISCHARGE TIME: 33 mi (more content not included)... Normal [facility] Comprehensive metabolic 2000 panelon 03-10-2025 Albumin [Mass/Vol] 2.9 g/dL Low 3.2-5.0 [facility] Comment on above: Order Comment: Speci men Type: BLOOD SPECIMENOrdering Facility: [facility] Address: [address] [place] [address] Performed By: #### 2 4323-8, 59131-4 ####[facility] LABORATORYCLIA [id number] [place] [address] [place] ALP [Catalytic activity/Vol] 168 U/L High 45-117 [facility] Comment on above: Order Comment: Speci men Type: BLOOD SPECIMENOrdering Facility: [facility] Address: [address] [place] [address] Performed By: #### 2 4323-8, ####[facility] LABORATORYCLIA [id number] [place] [id number] [place] ALT [Catalytic activity/Vol] 32 U/L Normal 13-61 [facility] Comment on above: Order Comment: Speci men Type: BLOOD SPECIMENOrdering Facility: [facility] Address: [address] [place] [address] Result Comment: Resu lts may be falsely depressed after the administration of Sulfasalazine and/or Sulfapyridine. Performed By: #### 2 4323-8, ####[facility] LABORATORYCLIA [id number] [place] [id number] [place] Anion gap [Moles/Vol] 10 mmol/L Normal 5-16 [facility] Comment on above: Order Comment: Speci men Type: BLOOD SPECIMENOrdering Facility: [facility] Address: [address] [place] [address] Performed By: #### 2 4323-8, ####[facility] LABORATORYCLIA [id number] [place] [id number] [place] AST [Catalytic activity/Vol] 28 U/L Normal 8-34 [facility] Comment on above: Order Comment: Speci men Type: BLOOD SPECIMENOrdering Facility: [facility] Address: [address] [place] [address] Result Comment: Resu lts may be falsely depressed after the administration of Sulfasalazine and/or Sulfapyridine. Performed By: #### 2 4323-8, ####[facility] LABORATORYCLIA [id number] [place] [id number] [place] Bilirubin [Mass/Vol] 0.8 mg/dL Normal 0.2-1.0 [facility] Comment on above: Order Comment: Speci men Type: BLOOD SPECIMENOrdering Facility: [facility] Address: [address] [place] [id number] Performed By: #### 2 4323-8, ####[facility] LABORATORYCLIA [id number] [place] [id number] [place] Calcium [Mass/Vol] 8.7 mg/dL Normal 8.5-10.5 [facility] Comment on above: Order Comment: Speci men Type: BLOOD SPECIMENOrdering Facility: [facility] Address: [address] [place] [address] Performed By: #### 2 4323-8, ####[facility] LABORATORYCLIA [id number] [place] [id number] [place] Chloride [Moles/Vol] 101 mmol/L Normal 98-107 [facility] Comment on above: Order Comment: Speci men Type: BLOOD SPECIMENOrdering Facility: [facility] Address: [address] [place] [address] Performed By: #### 2 432-8, ####[facility] LABORATORYCLIA [id number] [place] [id number] [place] CO2 [Moles/Vol] 25 mmol/L Normal 21-32 [facility] Comment on above: Order Comment: Speci men Type: BLOOD SPECIMENOrdering Facility: [facility] Address: [address] [place] [address] Performed By: #### 2 4323-8, ####[facility] LABORATORYCLIA [id number] [place] [id number] [place] Creatinine [Mass/Vol] 0.32 mg/dL Low 0.50-1.40 [facility] Comment on above: Order Comment: Speci men Type: BLOOD SPECIMENOrdering Facility: [facility] Address: [address] [place] [address] Result Comment: Seema ents receiving either N-Acetylcysteine (NAC) or Metamizole prior to venipuncture, may have falsely depressed results. Performed By: #### 2 432-8, ####[facility] LABORATORYCLIA [id number] [place] [address] [place] eGFRcr SerPlBld CKD-EPI 2020 122 mL/min/1.73m??? Normal >=60 [facility] Comment on above: Order Comment: Donavon medina Type: BLOOD SPECIMENOrdering Facility: [facility] Address: [address] [place] [address] Result Comment: Verito mated Glomerular Filtration Rate (eGFR) is calculated using the 2020 CKD-EPI creatinine equation. This equation utilizes serum creatinine, sex, and age as parameters. The creatinine assay has traceable calibration to isotope dilution-mass spectrometry. Refer to KDIGO guidelines for clinical interpretation. In patients with unstable renal function, e.g. those with acute kidney injury, the eGFR may not accurately reflect actual GFR. Performed By: #### 2 4323-8, 33651-4 ####[facility] LABORATORYCLIA [id number] [place] [address] [place] Glucose [Mass/Vol] 83 mg/dL Normal 70-100 [facility] Comment on above: Order Comment: Donavon medina Type: BLOOD SPECIMENOrdering Facility: [facility] Address: [address] [place] [address] Result Comment: The [place] Diabetes [employer] (ADA) provides guidance for cutoff values for fasting glucose and random glucose. The ADA defines fasting as no caloric intake for at least 8 hours. Fasting plasma glucose results between 100 to 125 mg/dL indicate increased risk for diabetes (prediabetes). Fasting plasma glucose results greater than or equal to 126 mg/dL meet the criteria for diagnosis of diabetes. In the absence of unequivocal hyperglycemia, results should be confirmed by repeat testing. In a patient with classic symptoms of hyperglycemia or hyperglycemic crisis, random plasma glucose results greater than or equal to 200 mg/dL meet the criteria for diagnosis of diabetes. Reference: Standards of Medical Care in Diabetes 2016, [place] Diabetes Association. Diabetes Care. 2016.39(Suppl 1). Results may be falsely elevated after the administration of Sulfapyridine. Results may be falsely depressed after the administration of Sulfasalazine. Performed By: #### 2 4323-8, 95250-9 ####[facility] LABORATORYCLIA [id number] [place] [id number] [place] Potassium [Moles/Vol] 4.1 mmol/L Normal 3.5-5.1 [facility] Comment on above: Order Comment: Speci men Type: BLOOD SPECIMENOrdering Facility: [facility] Address: [address] [place], [place] [address] Performed By: #### 2 4323-8, ####[facility] LABORATORYCLIA [id number] [place] [id number] [place] Protein [Mass/Vol] 6.2 g/dL Normal 6.0-8.5 [facility] Comment on above: Order Comment: Speci men Type: BLOOD SPECIMENOrdering Facility: [facility] Address: [address] [place], [place] [address] Performed By: #### 2 4323-8, ####[facility] LABORATORYCLIA [id number] [place] [address] [place] Sodium [Moles/Vol] 136 mmol/L Normal 136-145 [facility] Comment on above: Order Comment: Speci men Type: BLOOD SPECIMENOrdering Facility: [facility] Address: [address] [place] [address] Performed By: #### 2 4323-8, ####[facility] LABORATORYCLIA [id number] [place] [id number] [place] Urea nitrogen [Mass/Vol] 19 mg/dL Normal 7-26 [facility] Comment on above: Order Comment: Speci men Type: BLOOD SPECIMENOrdering Facility: [facility] Address: [address] [place] [address] Performed By: #### 2 4323-8, ####[facility] LABORATORYCLIA [id number] [place] [id number] [place] Magnesium SerPl-mCncon 03-10 Magnesium [Mass/Vol] 1.9 mg/dL Normal 1.6-2.6 [facility] Comment on above: Order Comment: Speci men Type: BLOOD SPECIMENOrdering Facility: [facility] Address: [facility] [place] [address] Performed By: #### 2 4323-8, 04023-9 ####[facility] LABORATORYCLIA [id number] [place] [id number] [facility] ALLIED HEALTHon 03-09-2025 ALLIED HEALTH HNO ID: [id number] Author: ADRIANNA GOMES Chaplain Service: Spiritual Care Author Type: Type: Allied Health Filed: 03/09/2025 10:02 Note Text: SPIRITUAL CARE ASSESSMENT SERVICE DATE: 03/09/2025 SERVICE TIME: :25 Visit with: Patient Length of visit (minutes): 10 Mormonism / Spirituality: None Reason: Pre-surgery visit ASSESSMENT Emotional Disposition: Nervous, Sadness, and scared Relational Concerns: Not assessed Spiritual Concerns: None INTERVENTIONS Empowerment: Encouraged adherence to treatment plan and Provided anticipatory guidance Exploration: Explored emotional needs and resources, Explored hope, Explored spiritual needs and resources, and Facilitated story telling Relationship Building: None / Not Applicable Ritual: Provided prayer OUTCOMES Patient tearfully processed emotions, Patient experienced catharsis, and Patient expressed gratitude PLAN Will follow as circumstances allow COMMENTS: SIGNATURE: Chaplain Miguel PATIENT NAME: Tam Walsh DATE: March 09, 2025 TIME: 10:00 AM PAGER/CONTACT #: [phone] [facility] ANES POSTPROC EVALon 025 ANES POSTPROC EVAL HNO ID: [id number] Author: MORENO CID DO Service: Anesthesiology Author Type: Anesthesiologist Type: Anesthesia Postprocedure Evaluation Filed: 03/09/2025 17:58 Note Text: POST ANESTHESIA EVALUATION NOTE : 1950 Procedure Summary Date: 03/09/25 Room / Location: MR MRI / MR IR Anesthesia Start: 1423 Anesthesia Stop: 152 Procedure: MRI ANESTHESIA BRAIN W/WO Diagnosis: Weakness (Weakness [R53.1]) Surgeons: Yara Etienne MD Responsible Provider: Jose Roberto Argueta MD Anesthesia Type: general ASA Status: 2 Anesthesia Type: general Airway Type: LMA Last Vitals Vitals Value Taken Time BP 141/60 03/09/25 1530 Temp 36.9 ?C (98.5 ?F) 03/09/25 1525 Pulse 80 03/09/25 1540 Resp 16 03/09/25 1525 SpO2 97 % 03/09/25 1540 Vitals shown include unfiled device data. Post Anesthesia Patient Status Patient Evaluation: PACU. PACU/ICU Patient Condition: stable. Anticipated Disposition: inpatient floor planned admission. Neurological Status: aware and responsive. Pulmonary Status: breathing comfortably on room air Airway Control: returned to baseline unsupported. Cardiovascular Status: stable. Pain Management: clinically adequate Postoperative Hydration: acceptable. Intraoperative Events: no significant anesthesia events Post Operative Nausea/Vomiting Status: no significant post operative nausea or vomiting Recommendation: continue current plan of care. Anesthesia Observations No Documentation SIGNATURE: Moreno Cid DO PATIENT NAME: Tam Cervantes Eclem DATE: March 09, 2025 TIME: 5:58 PM CSN: [id number] [facility] ANES PRE-OPon 03-09-2025 ANES PRE-OP HNO ID: [id number] Author: JOSE ROBERTO ARGUETA MD Service: Anesthesiology Author Type: Anesthesiologist Type: Anesthesia Preprocedure Evaluation Filed: 03/09/2025 13:47 Note Text: ANESTHESIOLOGY DAY OF SURGERY NOTE : 1950 Procedure Information Date/Time: 03/09/25 1400 Procedure: MRI ANESTHESIA BRAIN W/WO - DR STAN ANGEL, 1400 (ROSENDA) BS 03/05/25 *Branden from 03/06/25* Location: MR MRI / MR IR Surgeons: Yara Etienne MD Estimated body mass index is 26.69 kg/m? as calculated from the following: Height as of this encounter: 180.3 cm (5' 11). Weight as of this encounter: 86.8 kg (191 lb 5.8 oz). Most recent hematocrit and potassium results: Hematocrit 39.4 03/09/2025 Potassium 4.1 03/09/2025 Relevant Problems GI (+) Gastro-esophageal reflux disease without esophagitis hypothyroid I - PHYSICAL EVALUATION AIRWAY Patient intubated: No. Tracheostomy tube not present Mallampati: II. TM distance: >3 FB. Neck ROM: full ROM without neurological symptoms. Mouth opening: adequate. Short neck: no. Thick neck: no II - ANESTHESIA PLAN ASA Score: 2 Anesthetic Plan: general Airway type: LMA The patient is not a current smoker. NPO Status: adequate Beta Johnnie Monitoring Plan Monitoring plan: standard ASA. Post Procedure Analgesic Plan Postoperative analgesic plan: per surgical service. Informed Consent Anesthetic risks, benefits, alternatives, personnel and consent discussed: yes. Patient / Responsible [employer] Party agrees to proceed: yes Patient / Surrogate agrees to blood products: blood products not planned Vitals Value Taken Time BP 146/70 03/09/25 1341 Pulse 82 03/09/25 1343 Resp Temp SpO2 98 % 03/09/25 1343 Vitals shown include unfiled device data. Facility-Administered Medications as of 03/09/2025 Medication Dose Route Frequency - [] iv contrast (radiology procedure) INTRAVENOUS DIRECTED PRN - oxyCODONE IR 5 mg tab(s) (ROXICODONE) 5 mg ORAL q 8 H PRN - NaCl 0.9% iv flush bag 20 mL INTRAVENOUS PRN - aspirin 81 mg chewable tab(s) 81 mg ORAL DAILY - pantoprazole DR 40 mg tab(s) (PROTONIX) 40 mg ORAL DAILY - polyethylene glycol 3350 17 g packet 17 g ORAL DAILY PRN - acetaminophen 500 mg tab(s) (TYLENOL) 500 mg ORAL q 8 H PRN - diphenhydrAMINE 25 mg capsule (BENADRYL) 25 mg ORAL AT BEDTIME PRN - levothyroxine 25 mcg tab(s) (SYNTHROID) 25 mcg ORAL DAILY (6 AM) - heparin 5,000 Units injection 5,000 Units SUBCUTANEOUS q 12 H Outpatient Medications as of 03/09/2025 Medication Sig - levothyroxine (SYNTHROID) 25 mcg tablet - aspirin 325 mg cap Take 1 capsule by mouth once daily. - acetaminophen (TYLENOL EXTRA STRENGTH) 500 mg tablet Take 500 mg by mouth every 8 hours as needed. - multivit-min/FA/lycopen/ lutein (CENTRUM SILVER MEN ORAL) Take by mouth. - polyethylene glycol 3350 (MIRALAX, GLYCOLAX) 17 gram packet Take 1 Packet by mouth once daily as needed. - diphenhydrAMINE (ZZZQUIL) 25 mg capsule Take 25 mg by mouth at bedtime as needed. - VITAMIN B COMPLEX (B-COMPLEX ORAL) Take by mouth once daily. - pravastatin (PRAVACHOL) 10 mg tablet - triamterene-hydroCHLOROt hiazide (MAXZIDE-25) 37.5-25 mg per tablet Take 1 tablet by mouth once daily. - ibuprofen (ADVIL) 200 mg tablet Take 200 mg by mouth every 6 hours as needed. - aspirin (ASPIR-81 ORAL) Take by mouth. - fluticasone (FLONASE ALLERGY RELIEF) 50 mcg/actuation nasal spray Use 1 [place] in each nostril once daily. (Patient not taking: Reported on 06/03/2021 ) - PEG 400-propylene glycol (SYSTANE ULTRA) 0.4-0.3 % ophthalmic solution Use in both eyes as needed. (Patient not taking: Reported on 06/03/2021 ) - pantoprazole DR (PROTONIX) 40 mg tablet Take 40 mg by mouth once daily. I have interviewed and examined the patient. I have reviewed the medical record and/or the pre-anesthesia evaluation, pertinent labs, and test results. This contains updated information obtained within 48 hours of Surgery/Procedure. SIGNATURE: Jose Roberto Argueta MD PATIENT NAME: Tam Cervantes Eclgriselda DATE: March 09, 2025 TIME: 1:45 PM CSN: [id number] Normal [facility] CBC panel Auto (Bld)on 03-09 Erythrocyte distribution width (RBC) [Ratio] 13.6 % Normal 11.5-15.0 [facility] Comment on above: Order Comment: Donavon medina Type: BLOOD SPECIMENOrdering Facility: [facility] Address: [address] [place] [address] Performed By: #### 5 8410-2 ####[facility] LABORATORYCLIA [id number] [place] [address] [place] Hematocrit (Bld) [Volume fraction] 39.4 % Normal 39.0-51.0 [facility] Comment on above: Order Comment: Donavon medina Type: BLOOD SPECIMENOrdering Facility: [facility] Address: [address] [place] [address] Performed By: #### 5 8410-2 ####[facility] LABORATORYCLIA [id number] [place] [address] [place] Hemoglobin (Bld) [Mass/Vol] 13.5 g/dL Normal 13.0-17.0 [facility] Comment on above: Order Comment: Speci men Type: BLOOD SPECIMENOrdering Facility: [facility] Address: [address] [place] [address] Performed By: #### 5 8410-2 ####[facility] LABORATORYCLIA [id number] [address] [place] MCH (RBC) [Entitic mass] 32.1 pg Normal 26.0-34.0 [facility] Comment on above: Order Comment: Speci men Type: BLOOD SPECIMENOrdering Facility: [facility] Address: [address] [place] [address] Performed By: #### 5 8410-2 ####[facility] LABORATORYCLIA [id number] [address] MCHC (RBC) [Mass/Vol] 34.3 g/dL Normal 30.5-36.0 [facility] Comment on above: Order Comment: Speci men Type: BLOOD SPECIMENOrdering Facility: [facility] Address: [address] [place] [address] Performed By: #### 5 8410-2 ####[facility] LABORATORYCLIA [id number] [address] [place] MCV (RBC) [Entitic vol] 93.6 fL Normal 80.0-100.0 [facility] Comment on above: Order Comment: Speci men Type: BLOOD SPECIMENOrdering Facility: [facility] Address: [address] [place] [address] Performed By: #### 5 8410-2 ####[facility] LABORATORYCLIA [id number] [address] Nucleated RBC (Bld) [#/Vol] 10*3/uL Normal <0.01 [facility] Comment on above: Order Comment: Speci men Type: BLOOD SPECIMENOrdering Facility: [facility] Address: [address] [place] [address] Performed By: #### 5 8410-2 ####[facility] LABORATORYCLIA [id number] [place] [id number] [facility] [place] Platelet mean volume (Bld) [Entitic vol] 9.7 fL Normal 9.0-12.7 [facility] Comment on above: Order Comment: Speci men Type: BLOOD SPECIMENOrdering Facility: [facility] Address: [address] [place] [address] Performed By: #### 5 8410-2 ####[facility] LABORATORYCLIA [id number] [place] [id number] [facility] [place] Platelets (Bld) [#/Vol] 275 10*3/uL Normal 150-400 [facility] Comment on above: Order Comment: Speci men Type: BLOOD SPECIMENOrdering Facility: [facility] Address: [address] [place] [address] Performed By: #### 5 8410-2 ####[facility] LABORATORYCLIA [id number] [place] [id number] [facility] [place] RBC (Bld) [#/Vol] 4.21 10*6/uL Normal 4.20-6.00 [facility] Comment on above: Order Comment: Speci men Type: BLOOD SPECIMENOrdering Facility: [facility] Address: [address] [place] [address] Performed By: #### 5 8410-2 ####[facility] LABORATORYCLIA [id number] [place] [id number] [place] WBC (Bld) [#/Vol] 6.89 10*3/uL Normal 3.70-11.00 [facility] Comment on above: Order Comment: Speci men Type: BLOOD SPECIMENOrdering Facility: [facility] Address: [address] [place] [address] Performed By: #### 5 8410-2 ####[facility] LABORATORYCLIA [id number] [place] [id number] [facility] [place] Comprehensive metabolic 2000 panelon 03-09-2025 Albumin [Mass/Vol] 3.0 g/dL Low 3.2-5.0 [facility] Comment on above: Order Comment: Speci men Type: BLOOD SPECIMENOrdering Facility: [facility] Address: [address] [place] [id number] Performed By: #### 2 4323-8, ####[facility] LABORATORYCLIA [id number] [place] [id number] [place] ALP [Catalytic activity/Vol] 185 U/L High 45-117 [facility] Comment on above: Order Comment: Speci men Type: BLOOD SPECIMENOrdering Facility: [facility] Address: [address] [place] [address] Performed By: #### 2 4323-8, ####[facility] LABORATORYCLIA [id number] [address] [place] ALT [Catalytic activity/Vol] 37 U/L Normal 13-61 [facility] Comment on above: Order Comment: Speci men Type: BLOOD SPECIMENOrdering Facility: [facility] Address: [address] [place] [address] Result Comment: Resu lts may be falsely depressed after the administration of Sulfasalazine and/or Sulfapyridine. Performed By: #### 2 4323-8, ####[facility] LABORATORYCLIA [id number] [place] [id number] [place] Anion gap [Moles/Vol] 9 mmol/L Normal 5-16 [facility] Comment on above: Order Comment: Speci men Type: BLOOD SPECIMENOrdering Facility: [facility] Address: [address] [place] [address] Performed By: #### 2 4323-8, ####[facility] LABORATORYCLIA [id number] [place] [id number] [place] AST [Catalytic activity/Vol] 30 U/L Normal 8-34 [facility] Comment on above: Order Comment: Speci men Type: BLOOD SPECIMENOrdering Facility: [facility] Address: [address] [place] [address] [place] [address] Result Comment: Resu lts may be falsely depressed after the administration of Sulfasalazine and/or Sulfapyridine. Performed By: #### 2 4323-8, ####[facility] LABORATORYCLIA [id number] [place] [id number] [place] Bilirubin [Mass/Vol] 0.7 mg/dL Normal 0.2-1.0 [facility] Comment on above: Order Comment: Speci men Type: BLOOD SPECIMENOrdering Facility: [facility] Address: [address] [place] [address] Performed By: #### 2 4328, ####[facility] LABORATORYCLIA [id number] [place] [address] [place] Calcium [Mass/Vol] 9.2 mg/dL Normal 8.5-10.5 [facility] Comment on above: Order Comment: Speci men Type: BLOOD SPECIMENOrdering Facility: [facility] Address: [address] [place] [address] Performed By: #### 2 4328, ####[facility] LABORATORYCLIA [id number] [place] [address] [place] Chloride [Moles/Vol] 100 mmol/L Normal 98-107 [facility] Comment on above: Order Comment: Speci men Type: BLOOD SPECIMENOrdering Facility: [facility] Address: [address] [place] [address] Performed By: #### 2 4323-8, ####[facility] LABORATORYCLIA [id number] [place] [id number] [place] CO2 [Moles/Vol] 26 mmol/L Normal 21-32 [facility] Comment on above: Order Comment: Speci men Type: BLOOD SPECIMENOrdering Facility: [facility] Address: [address] [place] [address] Performed By: #### 2 4323-8, ####[facility] LABORATORYCLIA [id number] [place] [id number] [place] [facility] Creatinine [Mass/Vol] 0.32 mg/dL Low 0.50-1.40 [facility] Comment on above: Order Comment: Donavon medina Type: BLOOD SPECIMENOrdering Facility: [facility] Address: [address] [place] [address] Result Comment: Seema ents receiving either N-Acetylcysteine (NAC) or Metamizole prior to venipuncture, may have falsely depressed results. Performed By: #### 2 4323-8, ####[facility] LABORATORYCLIA [id number] [address] [place] eGFRcr SerPlBld CKD-EPI 2020 122 mL/min/1.73m??? Normal >=60 [facility] Comment on above: Order Comment: Donavon medina Type: BLOOD SPECIMENOrdering Facility: [facility] Address: [address] [place] [address] Result Comment: Verito mated Glomerular Filtration Rate (eGFR) is calculated using the 2020 CKD-EPI creatinine equation. This equation utilizes serum creatinine, sex, and age as parameters. The creatinine assay has traceable calibration to isotope dilution-mass spectrometry. Refer to KDIGO guidelines for clinical interpretation. In patients with unstable renal function, e.g. those with acute kidney injury, the eGFR may not accurately reflect actual GFR. Performed By: #### 2 4323-8, 74512-0 ####[facility] LABORATORYCLIA [id number] [place] [id number] [place] Glucose [Mass/Vol] 86 mg/dL Normal 70-100 [facility] Comment on above: Order Comment: Donavon adam Type: BLOOD SPECIMENOrdering Facility: [facility] Address: [address] [place] [address] Result Comment: The [place] Diabetes Association (ADA) provides guidance for cutoff values for fasting glucose and random glucose. The ADA defines fasting as no caloric intake for at least 8 hours. Fasting plasma glucose results between 100 to 125 mg/dL indicate increased risk for diabetes (prediabetes). Fasting plasma glucose results greater than or equal to 126 mg/dL meet the criteria for diagnosis of diabetes. In the absence of unequivocal hyperglycemia, results should be confirmed by repeat testing. In a patient with classic symptoms of hyperglycemia or hyperglycemic crisis, random plasma glucose results greater than or equal to 200 mg/dL meet the criteria for diagnosis of diabetes. Reference: Standards of Medical Care in Diabetes 2016, [place] [employer]. Diabetes Care. 2016.39(Suppl 1). Results may be falsely elevated after the administration of Sulfapyridine. Results may be falsely depressed after the administration of Sulfasalazine. Performed By: #### 2 4323-8, ####[facility] LABORATORYCLIA [id number] [place] [id number] [place] Potassium [Moles/Vol] 4.1 mmol/L Normal 3.5-5.1 [facility] Comment on above: Order Comment: Donavon medina Type: BLOOD SPECIMENOrdering Facility: [facility] Address: [address] [place] [address] Performed By: #### 2 4328, ####[facility] LABORATORYCLIA [id number] [place] [id number] [place] Protein [Mass/Vol] 6.3 g/dL Normal 6.0-8.5 [facility] Comment on above: Order Comment: Donavon medina Type: BLOOD SPECIMENOrdering Facility: [facility] Address: [address] [place] [address] Performed By: #### 2 4323-8, ####[facility] LABORATORYCLIA [id number] [place] [id number] [place] Sodium [Moles/Vol] 135 mmol/L Low 136-145 [facility] Comment on above: Order Comment: Donavon medina Type: BLOOD SPECIMENOrdering Facility: [facility] Address: [address] [place] [address] Performed By: #### 2 4323-8, ####[facility] LABORATORYCLIA [id number] [place] [id number] [place] Urea nitrogen [Mass/Vol] 20 mg/dL Normal 7-26 [facility] Comment on above: Order Comment: Speci men Type: BLOOD SPECIMENOrdering Facility: [facility] Address: [address] [place] [address] Performed By: #### 2 4323-8, 10420-7 ####[facility] LABORATORYCLIA [id number] [place] [address] [place] MRI BRAIN WO/W IVCONon 03-09 MRI BRAIN WO/W IVCON * * *Final Report* * * DATE OF EXAM: Mar 09 2025 3:17PM [facility] 0295 - MRI BRAIN WO/W IVCON / PROCEDURE REASON: Numbness or tingling, paresthesia (Ped 0-18y) * * * * Physician Interpretation * * * * EXAMINATION: MRI BRAIN WO/W IVCON CLINICAL HISTORY: Numbness or tingling, paresthesia (Ped 0-18y) TECHNIQUE: Routine brain MRI protocol without and with contrast including diffusion images. MQ: [id number] Contrast: 8 cc of Elucirem given iv by tmb @ 1505 no reaction mL Elucirem COMPARISON: None. RESULT: Acute Change: There is no evidence of restricted diffusion to suggest an acute infarct. Hemorrhage: No evidence of prior parenchymal hemorrhage on the susceptibility weighted images. Mass Lesion/ Mass Effect: No evidence of an intracranial mass or extra-axial fluid collection. No abnormal parenchymal or leptomeningeal enhancement is noted following contrast administration. No significant mass effect. Chronic Change: Scattered punctate foci of increased T2 and FLAIR signal are noted in the supratentorial white matter which is a nonspecific finding, but likely represents minimal chronic microvascular ischemia. 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 Parenchyma: There is mild generalized parenchymal volume loss. The brain parenchyma is otherwise within normal limits of signal intensity and morphology. Ventricles: Ventriculomegaly corresponds to the degree of parenchymal volume loss. Skull Base: Hypothalamic and pituitary region are grossly normal. Craniocervical junction is normal. No significant marrow replacement process. Vasculature: Major intracranial arterial structures, and dural venous sinuses show typical flow void, suggesting patency by spin echo criteria. Other: The visualized paranasal sinuses and mastoid air cells are clear. There are bilateral lens implants. The orbits and extracranial soft tissues are otherwise unremarkable. IMPRESSION: No acute findings. No acute infarction, intracranial hemorrhage, intracranial mass lesion or abnormal intracranial enhancement. 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 Transcribe Date/Time: Mar 09 2025 3:41P Dictated by : JAHAIRA VARGAS MD This examination was interpreted and the report reviewed and electronically signed by: JAHAIRA VARGAS MD on Mar 09 2025 3:48PM EST [id number] Normal [facility] Magnesium SerPl-mCncon 03-09 Magnesium [Mass/Vol] 1.9 mg/dL Normal 1.6-2.6 [facility] Comment on above: Order Comment: Speci men Type: BLOOD SPECIMENOrdering Facility: [facility] Address: [address] [place] [address] Performed By: #### 2 4323-8, 72120-5 ####[facility] LABORATORYCLIA [id number] [place] [id number] [place] CBC panel Auto (Bld)on 03-08 Erythrocyte distribution width (RBC) [Ratio] 13.5 % Normal 11.5-15.0 [facility] Comment on above: Order Comment: Speci men Type: BLOOD SPECIMENOrdering Facility: [facility] Address: [address] [place] [address] Performed By: #### 5 8410-2 ####[facility] LABORATORYCLIA [id number] [place] [id number] [place] Hematocrit (Bld) [Volume fraction] 38.6 % Low 39.0-51.0 [facility] Comment on above: Order Comment: Speci men Type: BLOOD SPECIMENOrdering Facility: [facility] Address: [address] [place] [address] Performed By: #### 5 8410-2 ####[facility] LABORATORYCLIA [id number] [place] [id number] [place] Hemoglobin (Bld) [Mass/Vol] 13.2 g/dL Normal 13.0-17.0 [facility] Comment on above: Order Comment: Speci men Type: BLOOD SPECIMENOrdering Facility: [facility] Address: [address] [place] [address] Performed By: #### 5 8410-2 ####[facility] LABORATORYCLIA [id number] [address] MCH (RBC) [Entitic mass] 31.9 pg Normal 26.0-34.0 [facility] Comment on above: Order Comment: Speci men Type: BLOOD SPECIMENOrdering Facility: [facility] Address: [address] [place] [address] Performed By: #### 5 8410-2 ####[facility] LABORATORYCLIA [id number] [address] MCHC (RBC) [Mass/Vol] 34.2 g/dL Normal 30.5-36.0 [facility] Comment on above: Order Comment: Speci men Type: BLOOD SPECIMENOrdering Facility: [facility] Address: [address] [place] [address] Performed By: #### 5 8410-2 ####[facility] LABORATORYCLIA [id number] [address] [place] MCV (RBC) [Entitic vol] 93.2 fL Normal 80.0-100.0 [facility] Comment on above: Order Comment: Speci men Type: BLOOD SPECIMENOrdering Facility: [facility] Address: [address] [place] [address] Performed By: #### 5 8410-2 ####[facility] LABORATORYCLIA [id number] [address] Nucleated RBC (Bld) [#/Vol] 10*3/uL Normal <0.01 [facility] Comment on above: Order Comment: Speci men Type: BLOOD SPECIMENOrdering Facility: [facility] Address: [address] [place] [address] Performed By: #### 5 8410-2 ####[facility] LABORATORYCLIA [id number] [address] [place] Platelet mean volume (Bld) [Entitic vol] 9.7 fL Normal 9.0-12.7 [facility] Comment on above: Order Comment: Speci men Type: BLOOD SPECIMENOrdering Facility: [facility] Address: [address] [place] [address] Performed By: #### 5 8410-2 ####[facility] LABORATORYCLIA [id number] [place] [id number] [place] Platelets (Bld) [#/Vol] 275 10*3/uL Normal 150-400 [facility] Comment on above: Order Comment: Speci men Type: BLOOD SPECIMENOrdering Facility: [facility] Address: [address] [place] [address] Performed By: #### 5 8410-2 ####[facility] LABORATORYCLIA [id number] [place] [id number] [place] RBC (Bld) [#/Vol] 4.14 10*6/uL Low 4.20-6.00 [facility] Comment on above: Order Comment: Speci men Type: BLOOD SPECIMENOrdering Facility: [facility] Address: [address] [place] [address] Performed By: #### 5 8410-2 ####[facility] LABORATORYCLIA [id number] [place] [id number] [facility] WBC (Bld) [#/Vol] 7.51 10*3/uL Normal 3.70-11.00 [facility] Comment on above: Order Comment: Speci men Type: BLOOD SPECIMENOrdering Facility: [facility] Address: [address] [place] [address] Performed By: #### 5 8410-2 ####[facility] LABORATORYCLIA [id number] [place] [id number] [facility] [place] Comprehensive metabolic 2000 panelon 03-08-2025 Albumin [Mass/Vol] 3.1 g/dL Low 3.2-5.0 [facility] Comment on above: Order Comment: Speci men Type: BLOOD SPECIMENOrdering Facility: [facility] Address: [address] [place] [address] Performed By: #### 2 4323-8, ####[facility] LABORATORYCLIA [id number] [place] [id number] [place] ALP [Catalytic activity/Vol] 186 U/L High 45-117 [facility] Comment on above: Order Comment: Speci men Type: BLOOD SPECIMENOrdering Facility: [facility] Address: [address] [place] [address] Performed By: #### 2 4323-8, ####[facility] LABORATORYCLIA [id number] [place] [id number] [place] ALT [Catalytic activity/Vol] 43 U/L Normal 13-61 [facility] Comment on above: Order Comment: Speci men Type: BLOOD SPECIMENOrdering Facility: [facility] Address: [address] [place] [address] Result Comment: Resu lts may be falsely depressed after the administration of Sulfasalazine and/or Sulfapyridine. Performed By: #### 2 4323-8, ####[facility] LABORATORYCLIA [id number] [place] [address] [place] Anion gap [Moles/Vol] 9 mmol/L Normal 5-16 [facility] Comment on above: Order Comment: Speci men Type: BLOOD SPECIMENOrdering Facility: [facility] Address: [address] [place] [address] Performed By: #### 2 4323-8, ####[facility] LABORATORYCLIA [id number] [place] [id number] [place] AST [Catalytic activity/Vol] 29 U/L Normal 8-34 [facility] Comment on above: Order Comment: Speci men Type: BLOOD SPECIMENOrdering Facility: [facility] Address: [address] [place] [address] Result Comment: Resu lts may be falsely depressed after the administration of Sulfasalazine and/or Sulfapyridine. Performed By: #### 2 4323, ####[facility] LABORATORYCLIA [id number] [place] [address] [place] Bilirubin [Mass/Vol] 0.7 mg/dL Normal 0.2-1.0 [facility] Comment on above: Order Comment: Speci men Type: BLOOD SPECIMENOrdering Facility: [facility] Address: [address] [place] [address] Performed By: #### 2 43210-28, ####[facility] LABORATORYCLIA [id number] [place] [id number] [place] Calcium [Mass/Vol] 9.2 mg/dL Normal 8.5-10.5 [facility] Comment on above: Order Comment: Speci men Type: BLOOD SPECIMENOrdering Facility: [facility] Address: [address] [place] [address] Performed By: #### 2 43210-28, ####[facility] LABORATORYCLIA [id number] [place] [address] [place] Chloride [Moles/Vol] 102 mmol/L Normal 98-107 [facility] Comment on above: Order Comment: Speci men Type: BLOOD SPECIMENOrdering Facility: [facility] Address: [address] [place] [address] Performed By: #### 2 43210-28, ####[facility] LABORATORYCLIA [id number] [place] [id number] [place] CO2 [Moles/Vol] 27 mmol/L Normal 21-32 [facility] Comment on above: Order Comment: Speci men Type: BLOOD SPECIMENOrdering Facility: [facility] Address: [address] [place] [address] Performed By: #### 2 4323-8, ####[facility] LABORATORYCLIA [id number] [place] [id number] [place] Creatinine [Mass/Vol] 0.45 mg/dL Low 0.50-1.40 [facility] Comment on above: Order Comment: Speci men Type: BLOOD SPECIMENOrdering Facility: [facility] Address: [address] [place] [id number] Result Comment: Seema ents receiving either N-Acetylcysteine (NAC) or Metamizole prior to venipuncture, may have falsely depressed results. Performed By: #### 2 4323-8, ####[facility] LABORATORYCLIA [id number] [place] [id number] [place] eGFRcr SerPlBld CKD-EPI 2020 110 mL/min/1.73m??? Normal >=60 [facility] Comment on above: Order Comment: Donavon medina Type: BLOOD SPECIMENOrdering Facility: [facility] Address: [address] [place] [address] Result Comment: Verito mated Glomerular Filtration Rate (eGFR) is calculated using the 2020 CKD-EPI creatinine equation. This equation utilizes serum creatinine, sex, and age as parameters. The creatinine assay has traceable calibration to isotope dilution-mass spectrometry. Refer to KDIGO guidelines for clinical interpretation. In patients with unstable renal function, e.g. those with acute kidney injury, the eGFR may not accurately reflect actual GFR. Performed By: #### 2 4323-8, ####[facility] LABORATORYCLIA [id number] [place] [address] [place] Glucose [Mass/Vol] 93 mg/dL Normal 70-100 [facility] Comment on above: Order Comment: Donavon medina Type: BLOOD SPECIMENOrdering Facility: [facility] Address: [address] [place] [phone] Result Comment: The [place] Diabetes Association (ADA) provides guidance for cutoff values for fasting glucose and random glucose. The ADA defines fasting as no caloric intake for at least 8 hours. Fasting plasma glucose results between 100 to 125 mg/dL indicate increased risk for diabetes (prediabetes). Fasting plasma glucose results greater than or equal to 126 mg/dL meet the criteria for diagnosis of diabetes. In the absence of unequivocal hyperglycemia, results should be confirmed by repeat testing. In a patient with classic symptoms of hyperglycemia or hyperglycemic crisis, random plasma glucose results greater than or equal to 200 mg/dL meet the criteria for diagnosis of diabetes. Reference: Standards of Medical Care in Diabetes 2016, [place] [employer]. Diabetes Care. 2016.39(Suppl 1). Results may be falsely elevated after the administration of Sulfapyridine. Results may be falsely depressed after the administration of Sulfasalazine. Performed By: #### 2 4323-8, ####[facility] LABORATORYCLIA [id number] [place] [id number] [place] Potassium [Moles/Vol] 4.4 mmol/L Normal 3.5-5.1 [facility] Comment on above: Order Comment: Speci men Type: BLOOD SPECIMENOrdering Facility: [facility] Address: [address] [place], [place] [address] Performed By: #### 2 4328, ####[facility] LABORATORYCLIA [id number] [place] [id number] [place] Protein [Mass/Vol] 6.5 g/dL Normal 6.0-8.5 [facility] Comment on above: Order Comment: Speci men Type: BLOOD SPECIMENOrdering Facility: [facility] Address: [address] [place] [address] Performed By: #### 2 432-8, ####[facility] LABORATORYCLIA [id number] [place] [id number] [place] Sodium [Moles/Vol] 138 mmol/L Normal 136-145 [facility] Comment on above: Order Comment: Speci men Type: BLOOD SPECIMENOrdering Facility: [facility] Address: [address] [place] [address] Performed By: #### 2 4328, ####[facility] LABORATORYCLIA [id number] [place] [id number] [place] Urea nitrogen [Mass/Vol] 21 mg/dL Normal 7-26 [facility] Comment on above: Order Comment: Speci men Type: BLOOD SPECIMENOrdering Facility: [facility] Address: [address] [place] [address] Performed By: #### 2 432-, 61364-9 ####[facility] LABORATORYCLIA [id number] [place] [address] [place] Magnesium SerPl-mCncon 03-08 Magnesium [Mass/Vol] 2.0 mg/dL Normal 1.6-2.6 [facility] Comment on above: Order Comment: Speci men Type: BLOOD SPECIMENOrdering Facility: [facility] Address: [address] [place] [address] Performed By: #### 2 4323-8, ####[facility] LABORATORYCLIA [id number] [place] [id number] [place] CBC panel Auto (Bld)on 03-07 Erythrocyte distribution width (RBC) [Ratio] 13.9 % Normal 11.5-15.0 [facility] Comment on above: Order Comment: Speci men Type: BLOOD SPECIMENOrdering Facility: [facility] Address: [address] [place] [address] Performed By: #### 5 8410-2 ####[facility] LABORATORYCLIA [id number] [place] [id number] [place] Hematocrit (Bld) [Volume fraction] 40.2 % Normal 39.0-51.0 [facility] Comment on above: Order Comment: Speci men Type: BLOOD SPECIMENOrdering Facility: [facility] Address: [address] [place] [address] Performed By: #### 5 8410-2 ####[facility] LABORATORYCLIA [id number] [place] [id number] [place] Hemoglobin (Bld) [Mass/Vol] 13.6 g/dL Normal 13.0-17.0 [facility] Comment on above: Order Comment: Speci men Type: BLOOD SPECIMENOrdering Facility: [facility] Address: [address] [place] [address] Performed By: #### 5 8410-2 ####[facility] LABORATORYCLIA [id number] [place] [id number] [place] MCH (RBC) [Entitic mass] 32.4 pg Normal 26.0-34.0 [facility] Comment on above: Order Comment: Speci men Type: BLOOD SPECIMENOrdering Facility: [facility] Address: [address] [place] [address] Performed By: #### 5 8410-2 ####[facility] LABORATORYCLIA [id number] [place] [address] [place] MCHC (RBC) [Mass/Vol] 33.8 g/dL Normal 30.5-36.0 [facility] Comment on above: Order Comment: Speci men Type: BLOOD SPECIMENOrdering Facility: [facility] Address: [address] [place] [address] Performed By: #### 5 8410-2 ####[facility] LABORATORYCLIA [id number] [address] [place] MCV (RBC) [Entitic vol] 95.7 fL Normal 80.0-100.0 [facility] Comment on above: Order Comment: Speci men Type: BLOOD SPECIMENOrdering Facility: [facility] Address: [address] [place] [address] Performed By: #### 5 8410-2 ####[facility] LABORATORYCLIA [id number] [address] [place] Nucleated RBC (Bld) [#/Vol] 10*3/uL Normal <0.01 [facility] Comment on above: Order Comment: Speci men Type: BLOOD SPECIMENOrdering Facility: [facility] Address: [address] [place] [address] Performed By: #### 5 8410-2 ####[facility] LABORATORYCLIA [id number] [address] [place] Platelet mean volume (Bld) [Entitic vol] 9.4 fL Normal 9.0-12.7 [facility] Comment on above: Order Comment: Speci men Type: BLOOD SPECIMENOrdering Facility: [facility] Address: [address] [place] [address] Performed By: #### 5 8410-2 ####[facility] LABORATORYCLIA [id number] [place] [id number] [facility] Platelets (Bld) [#/Vol] 263 10*3/uL Normal 150-400 [facility] Comment on above: Order Comment: Speci men Type: BLOOD SPECIMENOrdering Facility: [facility] Address: [address] [place] [address] Performed By: #### 5 8410-2 ####[facility] LABORATORYCLIA [id number] [address] RBC (Bld) [#/Vol] 4.20 10*6/uL Normal 4.20-6.00 [facility] Comment on above: Order Comment: Speci men Type: BLOOD SPECIMENOrdering Facility: [facility] Address: [address] [place] [address] Performed By: #### 5 8410-2 ####[facility] LABORATORYCLIA [id number] [address] WBC (Bld) [#/Vol] 7.32 10*3/uL Normal 3.70-11.00 [facility] Comment on above: Order Comment: Speci men Type: BLOOD SPECIMENOrdering Facility: [facility] Address: [address] [place] [address] Performed By: #### 5 8410-2 ####[facility] LABORATORYCLIA [id number] [place] [id number] [facility] Comprehensive metabolic 2000 panelon 03-07-2025 Albumin [Mass/Vol] 3.0 g/dL Low 3.2-5.0 [facility] Comment on above: Order Comment: Speci men Type: BLOOD SPECIMENOrdering Facility: [facility] Address: [address] [place] [address] Performed By: #### 2 4323-8, 08481-4 ####[facility] LABORATORYCLIA [id number] [place] [id number] [facility] ALP [Catalytic activity/Vol] 185 U/L High 45-117 [facility] Comment on above: Order Comment: Speci men Type: BLOOD SPECIMENOrdering Facility: [facility] Address: [address] [place] [address] Performed By: #### 2 4323-8, ####[facility] LABORATORYCLIA [id number] [place] [id number] [place] ALT [Catalytic activity/Vol] 51 U/L Normal 13-61 [facility] Comment on above: Order Comment: Speci men Type: BLOOD SPECIMENOrdering Facility: [facility] Address: [address] [place] [address] Result Comment: Resu lts may be falsely depressed after the administration of Sulfasalazine and/or Sulfapyridine. Performed By: #### 2 4323-8, ####[facility] LABORATORYCLIA [id number] [place] [id number] [place] Anion gap [Moles/Vol] 6 mmol/L Normal 5-16 [facility] Comment on above: Order Comment: Speci men Type: BLOOD SPECIMENOrdering Facility: [facility] Address: [address] [place] [address] Performed By: #### 2 4323-8, ####[facility] LABORATORYCLIA [id number] [place] [id number] [place] AST [Catalytic activity/Vol] 36 U/L High 8-34 [facility] Comment on above: Order Comment: Speci men Type: BLOOD SPECIMENOrdering Facility: [facility] Address: [address] [place] [address] Result Comment: Resu lts may be falsely depressed after the administration of Sulfasalazine and/or Sulfapyridine. Performed By: #### 2 4323-8, ####[facility] LABORATORYCLIA [id number] [place] [id number] [place] Bilirubin [Mass/Vol] 0.6 mg/dL Normal 0.2-1.0 [facility] Comment on above: Order Comment: Speci men Type: BLOOD SPECIMENOrdering Facility: [facility] Address: [address] [place] [address] Performed By: #### 2 4323-8, ####[facility] LABORATORYCLIA [id number] [place] [id number] [place] Calcium [Mass/Vol] 8.9 mg/dL Normal 8.5-10.5 [facility] Comment on above: Order Comment: Speci men Type: BLOOD SPECIMENOrdering Facility: [facility] Address: [address] [place] [address] Performed By: #### 2 4323-8, ####[facility] LABORATORYCLIA [id number] [place] [id number] [place] Chloride [Moles/Vol] 103 mmol/L Normal 98-107 [facility] Comment on above: Order Comment: Speci men Type: BLOOD SPECIMENOrdering Facility: [facility] Address: [address] [place] [address] Performed By: #### 2 4323-8, ####[facility] LABORATORYCLIA [id number] [place] [id number] [place] CO2 [Moles/Vol] 28 mmol/L Normal 21-32 [facility] Comment on above: Order Comment: Speci men Type: BLOOD SPECIMENOrdering Facility: [facility] Address: [address] [place] [address] Performed By: #### 2 4323-8, ####[facility] LABORATORYCLIA [id number] [place] [id number] [place] Creatinine [Mass/Vol] 0.39 mg/dL Low 0.50-1.40 [facility] Comment on above: Order Comment: Speci men Type: BLOOD SPECIMENOrdering Facility: [facility] Address: [address] [place] [address] Result Comment: Seema ents receiving either N-Acetylcysteine (NAC) or Metamizole prior to venipuncture, may have falsely depressed results. Performed By: #### 2 4323-8, ####[facility] LABORATORYCLIA [id number] [place] [id number] [place] eGFRcr SerPlBld CKD-EPI 2020 115 mL/min/1.73m??? Normal >=60 [facility] Comment on above: Order Comment: Donavon medina Type: BLOOD SPECIMENOrdering Facility: [facility] Address: [address] [place] [address] Result Comment: Verito mated Glomerular Filtration Rate (eGFR) is calculated using the 2020 CKD-EPI creatinine equation. This equation utilizes serum creatinine, sex, and age as parameters. The creatinine assay has traceable calibration to isotope dilution-mass spectrometry. Refer to KDIGO guidelines for clinical interpretation. In patients with unstable renal function, e.g. those with acute kidney injury, the eGFR may not accurately reflect actual GFR. Performed By: #### 2 4323-8, 63061-1 ####[facility] LABORATORYCLIA [id number] [place] [address] [place] Glucose [Mass/Vol] 96 mg/dL Normal 70-100 [facility] Comment on above: Order Comment: Donavon medina Type: BLOOD SPECIMENOrdering Facility: [facility] Address: [address] [place] [address] Result Comment: The [place] [employer] (ADA) provides guidance for cutoff values for fasting glucose and random glucose. The ADA defines fasting as no caloric intake for at least 8 hours. Fasting plasma glucose results between 100 to 125 mg/dL indicate increased risk for diabetes (prediabetes). Fasting plasma glucose results greater than or equal to 126 mg/dL meet the criteria for diagnosis of diabetes. In the absence of unequivocal hyperglycemia, results should be confirmed by repeat testing. In a patient with classic symptoms of hyperglycemia or hyperglycemic crisis, random plasma glucose results greater than or equal to 200 mg/dL meet the criteria for diagnosis of diabetes. Reference: Standards of Medical Care in Diabetes 2016, [place] [employer] Association. Diabetes Care. 2016.39(Suppl 1). Results may be falsely elevated after the administration of Sulfapyridine. Results may be falsely depressed after the administration of Sulfasalazine. Performed By: #### 2 4323-8, ####[facility] LABORATORYCLIA [id number] [place] [address] [place] Potassium [Moles/Vol] 4.2 mmol/L Normal 3.5-5.1 [facility] Comment on above: Order Comment: Speci men Type: BLOOD SPECIMENOrdering Facility: [facility] Address: [address] [place] [address] Performed By: #### 2 4328, ####[facility] LABORATORYCLIA [id number] [place] [id number] [place] Protein [Mass/Vol] 6.3 g/dL Normal 6.0-8.5 [facility] Comment on above: Order Comment: Speci men Type: BLOOD SPECIMENOrdering Facility: [facility] Address: [address] [place] [address] Performed By: #### 2 4328, ####[facility] LABORATORYCLIA [id number] [place] [id number] [place] Sodium [Moles/Vol] 137 mmol/L Normal 136-145 [facility] Comment on above: Order Comment: Speci men Type: BLOOD SPECIMENOrdering Facility: [facility] Address: [address] [place] [address] Performed By: #### 2 4328, ####[facility] LABORATORYCLIA [id number] [place] [id number] [place] Urea nitrogen [Mass/Vol] 23 mg/dL Normal 7-26 [facility] Comment on above: Order Comment: Speci men Type: BLOOD SPECIMENOrdering Facility: [facility] Address: [address] [place], [place] [address] Performed By: #### 2 432-8, ####[facility] LABORATORYCLIA [id number] [place] [id number] [place] Magnesium SerPl-mCncon 03-07 Magnesium [Mass/Vol] 1.9 mg/dL Normal 1.6-2.6 [facility] Comment on above: Order Comment: Speci men Type: BLOOD SPECIMENOrdering Facility: [facility] Address: [address] [place] [id number] Performed By: #### 2 4323-8, 33745-9 ####[facility] LABORATORYCLIA [id number] [place] [address] [facility] NUTRITIONon 03-07-2025 NUTRITION HNO ID: [id number] Author: MONICA MORAN RD Service: Nutrition Therapy Author Type: Registered Dietitian Type: Nutrition Filed: 03/07/2025 13:49 Note Text: NUTRITION THERAPY SCREEN NOTE SERVICE DATE: 03/07/2025 SERVICE TIME: Start Time: 1206 Care Plan: Continue current diet Supplements: Ensure Max once daily Discharge Recommendations: Diet Diet: Regular Monitor and Evaluation: Monitor labs, I/Os, vital signs, weight, Monitor bowel function, Monitor fluid/electrolyte balance, Meet greater than 75% of estimated needs Intake History: Nutrition Intake Prior to Admission: Greater than 75% estimated energy needs greater than or equal to 3 months (Pt reports he was eating well [employer]. Takes Premier Protein shakes once daily at home and requested to continue them while admitted.) Current Nutrition Intake: Greater than 75% estimated energy needs Current Intake Over time: Greater than or equal to 7 days (8 days LOS. Recorded meal intakes 50-100% over admission and taking supplements BID. Would like to have supplement changed to E Max once daily as he does not feel he needs the high calorie option TID) Diet Orders (From admission, onward) Start Ordered 03/05/25 1200 DIET REGULAR START NOW 03/05/25 1145 02/26/25 1800 DIET SUPPLEMENTS START NOW Question Answer Comment Supplement 1 ENSURE PLUS HIGH PROTEIN CHOCOLATE Supplement 1 Frequency THREE TIMES/DAY WITH MEALS 02/26/25 1756 Anthropometrics: Height: 180.3 cm (5' 11) Weight: 90.1 kg (198 lb 10.2 oz) Usual Weight: 90.7 kg (200 lb) (200-210 lb) Usual Weight Obtained From: Patient Weight change percentage over time: No wt hx available per EMR. Pt unsure of UBW as he is not able to stand without support at home to get an accurate reading. Believes it is close to 200 lb Weight Change: Stable weight(s) MNT Billing: $ Routine Care : 1 unit Time Spent (mins): 6 SIGNATURE: Monica Moran RD PATIENT NAME: Tam Walsh DATE: March 07, 2025 TIME: 1:49 PM [facility] THERAPY NTon 03-07-2025 THERAPY NT HNO ID: [id number] Author: CHINA MOORE OTR/L Service: Occupational Therapy Author Type: Public Health Dentist Type: Therapy (PT/OT/Speech/Resp) Filed: 03/07/2025 12:45 Note Text: -------- Attestation signed by China Moore OTR/L at 03/07/2025 12:45 PM I reviewed and agree with the assessment as documented above. SIGNATURE: JERALD Puckett DATE: March 07, 2025 TIME: 12:45 PM -------- Occupational Therapy Treatment Summary SERVICE DATE: 03/07/2025 SERVICE TIME: 1021 to 1103 ROOM: [id number] OT 6 Clicks Score: 10 DISCHARGE RECOMMENDATIONS Subacute/SNF Recommended Discharge Disposition Comments: To maximize safety and level of IND during functional task completion Recommended Discharge Disposition Due to: Patient requires daily (5x/week) skilled therapy at next level of care. Anticipated Discharge Needs: Physical Assist at Home, Supervision at Home Physical Assist at Home for: Transfers, Ambulation, Cleaning, Laundry, Meals, Safety, Shopping, Transportation Supervision at Home due to: Decreased safety awareness ASSESSMENT Response to Therapy Interventions: Improved Ability to [place], Improved Tolerance for Activity, Multiple Ongoing Medical Issues, Needs Frequent Redirection or Reinstruction, Requires Additional Time to Complete Activities, Requires Encouragement to Complete Activities, Slow Progression with ADLs/IADLs, Slow Progression with Functional Activities/Skills progressing slowly, req hands on when up and is at a risk for falls PRECAUTIONS Bed/Chair Alarm, Fall Risk x2A CURRENT HOSPITAL COURSE Pt presents to [facility] with recurrent falls and generalized weakness Relevant Past Medical History: Spinal stenosis, HTN, HLD, GERD HOME LIVING Patient Lives With: Spouse Assistance Available: 24-Hour Entry To Home: Ramp Number Of Stairs To Bed/Bath: 0 Tub/Shower Type: Walk-in shower (sponge bathes) Laundry: Spouse completes Equipment Owned: Wheelchair- Power, Other: See Comment, Rollator, Lift Chair, Hospital Bed (mechanical lift system called dignity lift, sit to stand device) PRIOR FUNCTIONAL LEVEL Required Assistance Assistance Required With: Transfers, Ambulation, Cleaning, Laundry, Meals, Medication Management, Stairs, Safety, Self Care, Transportation, Shopping Pt reports he has multiple devices to help with transfers including multiple lift chairs, sit to stand device, and mechanical lift device he calls the dignity lift. Pt reports that he was able to ambulate using a rollator with the brakes locked approximately 30 ft by dragging his feet. Pt reports that his assists with IADLs and ADLs at baseline. SUBJECTIVE i just dont have any strength in my legs COGNITION Orientation Deficits: (A+O x 4) Responsiveness: Alert, Awake Follows Commands: 2-step Commands, Cueing Needed Cueing to Follow Commands: Moderate Attention Deficits: Distractible, Divided, Redirected with Cues THERAPY DIAGNOSIS Decreased activities of daily living (ADL) TREATMENT INTERVENTIONS Therapeutic Activity (38548), Self Assisted Management (10205) Timed Code Treatment (minutes): 40 Skilled Treatment Time (minutes): 40 TRAINING AND EDUCATION PROVIDED Bed Mobility, Benefits of In-Hospital Mobility, Discharge Planning, Functional Mobility Involving ADLs, Lower Extremity Dressing, Positioning, Role of Occupational Therapy, Sitting Balance to Improve [place] with ADLs/Self-Care, Transfer - Sit to Stand THERAPEUTIC SKILLS USED Activity Dosing, Bilateral UE Integration, Cues for Sequencing/Proper Technique for Activity, Cuing Tactile, Cuing Verbal, Cuing Visual, Facilitation of Joint Range of Motion, Movement Facilitation, Physical Assist, Therapeutic Use of Self FUNCTIONAL STATUS Activities of Daily Living Assist Level Additional Information Feeding Minimal Assistance, Additional Information opening containers Grooming Minimal Assistance, Additional Information as above Bathing Upper Body Moderate Assistance, Additional Information full adls sitting upright in bed Bathing Lower Body Total Assistance Dressing Upper Body Moderate Assistance, Additional Information gown Dressing Lower Body Total Assistance Toileting Total Assistance Mobility Assist Level Additional Information Bed Mobility Rolling: Maximal Assistance, Additional Information max a x2 Supine To Sit: Maximal Assistance, Additional Information max a x2. placed bles in proper sitting position, ble knees blocks, conpleted 24 mins unsupported eob sitting balance w/ functional adl tasks Sit To Supine: Maximal Assistance, Additional Information x2 ble mgmt, minimal ble movement Sit to Stand Total Assistance, Additional Information attempted w/ gait belt to shift patients hips anteriorly to bear weight on bled to at (more content not included)... Normal [facility] CBC panel Auto (Bld)on 03-06 Erythrocyte distribution width (RBC) [Ratio] 13.6 % Normal 11.5-15.0 [facility] Comment on above: Order Comment: Donavon medina Type: BLOOD SPECIMEN [facility] Address: [address] [place] [address] Performed By: #### 2 4323-8, #### [facility] CLIA [id number] [address] [place] [address] [place] Hematocrit (Bld) [Volume fraction] 37.4 % Low 39.0-51.0 [facility] Comment on above: Order Comment: Donavon medina Type: BLOOD SPECIMEN [facility] Address: [address] [place] [address] Performed By: #### 2 4323-8, #### [facility] CLIA [id number] [address] [place] [address] [place] Hemoglobin (Bld) [Mass/Vol] 12.9 g/dL Low 13.0-17.0 [facility] Comment on above: Order Comment: Varuni adam Type: BLOOD SPECIMEN [facility] Address: [address] [place] [address] Performed By: #### 2 4323-8, #### [facility] CLIA [id number] [address] [place] [address] MCH (RBC) [Entitic mass] 32.1 pg Normal 26.0-34.0 [facility] Comment on above: Order Comment: Speci men Type: BLOOD SPECIMEN [facility] Address: [address] [place] [address] Performed By: #### 2 432-8, #### [facility] CLIA [id number] [address] [place] [address] [place] MCHC (RBC) [Mass/Vol] 34.5 g/dL Normal 30.5-36.0 [facility] Comment on above: Order Comment: Speci men Type: BLOOD SPECIMEN [facility] Address: [address] [place] [address] Performed By: #### 2 432-8, #### [facility] CLIA [id number] [address] [place] [address] [place] MCV (RBC) [Entitic vol] 93.0 fL Normal 80.0-100.0 [facility] Comment on above: Order Comment: Speci men Type: BLOOD SPECIMEN [facility] Address: [address] [place] [address] Performed By: #### 2 4328, #### [facility] CLIA [id number] [address] [place] [address] [place] Nucleated RBC (Bld) [#/Vol] 10*3/uL Normal <0.01 [facility] Comment on above: Order Comment: Speci men Type: BLOOD SPECIMEN [facility] Address: [address] [place] [address] Performed By: #### 2 4323-8, #### [facility] CLIA [id number] [address] [place], [place] [id number] [place] Platelet mean volume (Bld) [Entitic vol] 10.2 fL Normal 9.0-12.7 [facility] Comment on above: Order Comment: Speci men Type: BLOOD SPECIMEN [facility] Address: [address] [place] [address] Performed By: #### 2 4323-8, 64467-4 #### [facility] CLIA [id number] [address] [place], [place] [id number] [place] Platelets (Bld) [#/Vol] 276 10*3/uL Normal 150-400 [facility] Comment on above: Order Comment: Speci men Type: BLOOD SPECIMEN [facility] Address: [address] [place] [address] Performed By: #### 2 4323-8, #### [facility] CLIA [id number] [address] [place] [address] [place] RBC (Bld) [#/Vol] 4.02 10*6/uL Low 4.20-6.00 [facility] Comment on above: Order Comment: Speci men Type: BLOOD SPECIMEN [facility] Address: [address] [place] [address] Performed By: #### 2 4323-8, 82518-5 #### [facility] CLIA [id number] [address] [place], [place] [id number] [place] WBC (Bld) [#/Vol] 6.15 10*3/uL Normal 3.70-11.00 [facility] Comment on above: Order Comment: Speci men Type: BLOOD SPECIMEN [facility] Address: [address] [place] [address] Performed By: #### 2 4323-8, #### [facility] CLIA [id number] [address] [place], [place] [id number] [facility] [place] Comprehensive metabolic 2000 panelon 03-06-2025 Albumin [Mass/Vol] 2.9 g/dL Low 3.2-5.0 [facility] Comment on above: Order Comment: Speci men Type: BLOOD SPECIMENOrdering Facility: [facility] Address: [address] [place] [address] Performed By: #### 2 4323-8, ####[facility] LABORATORYCLIA [id number] [place] [id number] [place] ALP [Catalytic activity/Vol] 185 U/L High 45-117 [facility] Comment on above: Order Comment: Speci men Type: BLOOD SPECIMENOrdering Facility: [facility] Address: [address] [place] [address] Performed By: #### 2 4323-8, ####[facility] LABORATORYCLIA [id number] [address] [place] ALT [Catalytic activity/Vol] 58 U/L Normal 13-61 [facility] Comment on above: Order Comment: Speci men Type: BLOOD SPECIMENOrdering Facility: [facility] Address: [address] [place] [address] Result Comment: Resu lts may be falsely depressed after the administration of Sulfasalazine and/or Sulfapyridine. Performed By: #### 2 4323-8, ####[facility] LABORATORYCLIA [id number] [address] STATES OF [facility] Anion gap [Moles/Vol] 8 mmol/L Normal 5-16 [facility] Comment on above: Order Comment: Speci men Type: BLOOD SPECIMENOrdering Facility: [facility] Address: [address] [place] [address] Performed By: #### 2 4323-8, ####[facility] LABORATORYCLIA [id number] [place] [id number] [place] AST [Catalytic activity/Vol] 40 U/L High 8-34 [facility] Comment on above: Order Comment: Speci men Type: BLOOD SPECIMENOrdering Facility: [facility] Address: [address] [place] [address] Result Comment: Resu lts may be falsely depressed after the administration of Sulfasalazine and/or Sulfapyridine. Performed By: #### 2 4323-8, ####[facility] LABORATORYCLIA [id number] [place] [id number] [place] Bilirubin [Mass/Vol] 0.6 mg/dL Normal 0.2-1.0 [facility] Comment on above: Order Comment: Speci men Type: BLOOD SPECIMENOrdering Facility: [facility] Address: [address] [place] [address] Performed By: #### 2 4328, ####[facility] LABORATORYCLIA [id number] [place] [id number] [place] Calcium [Mass/Vol] 8.7 mg/dL Normal 8.5-10.5 [facility] Comment on above: Order Comment: Speci men Type: BLOOD SPECIMENOrdering Facility: [facility] Address: [address] [place] [address] Performed By: #### 2 4328, ####[facility] LABORATORYCLIA [id number] [place] [address] [place] Chloride [Moles/Vol] 101 mmol/L Normal 98-107 [facility] Comment on above: Order Comment: Speci men Type: BLOOD SPECIMENOrdering Facility: [facility] Address: [address] [place] [address] Performed By: #### 2 4328, ####[facility] LABORATORYCLIA [id number] [place] [id number] [place] CO2 [Moles/Vol] 28 mmol/L Normal 21-32 [facility] Comment on above: Order Comment: Speci men Type: BLOOD SPECIMENOrdering Facility: [facility] Address: [facility] [place] [address] Performed By: #### 2 4323-8, ####[facility] LABORATORYCLIA [id number] [place] [id number] [place] Creatinine [Mass/Vol] 0.40 mg/dL Low 0.50-1.40 [facility] Comment on above: Order Comment: Donavon medina Type: BLOOD SPECIMENOrdering Facility: [facility] Address: [address] [place] [id number] Result Comment: Seema ents receiving either N-Acetylcysteine (NAC) or Metamizole prior to venipuncture, may have falsely depressed results. Performed By: #### 2 4323-8, ####[facility] LABORATORYCLIA [id number] [address] Creatinine and Glomerular filtration rate.predicted panel (S/P/Bld) 114 mL/min/1.73m??? Normal >=60 [facility] Comment on above: Order Comment: Donavon medina Type: BLOOD SPECIMENOrdering Facility: [facility] Address: [address] [place] [address] Result Comment: Verito mated Glomerular Filtration Rate (eGFR) is calculated using the 2020 CKD-EPI creatinine equation. This equation utilizes serum creatinine, sex, and age as parameters. The creatinine assay has traceable calibration to isotope dilution-mass spectrometry. Refer to KDIGO guidelines for clinical interpretation. In patients with unstable renal function, e.g. those with acute kidney injury, the eGFR may not accurately reflect actual GFR. Performed By: #### 2 4323-8, ####[facility] LABORATORYCLIA [id number] [place] [address] [place] Glucose [Mass/Vol] 102 mg/dL High 70-100 [facility] Comment on above: Order Comment: Donavon medina Type: BLOOD SPECIMENOrdering Facility: [facility] Address: [address] [id number] Result Comment: The [place] [employer] (ADA) provides guidance for cutoff values for fasting glucose and random glucose. The ADA defines fasting as no caloric intake for at least 8 hours. Fasting plasma glucose results between 100 to 125 mg/dL indicate increased risk for diabetes (prediabetes). Fasting plasma glucose results greater than or equal to 126 mg/dL meet the criteria for diagnosis of diabetes. In the absence of unequivocal hyperglycemia, results should be confirmed by repeat testing. In a patient with classic symptoms of hyperglycemia or hyperglycemic crisis, random plasma glucose results greater than or equal to 200 mg/dL meet the criteria for diagnosis of diabetes. Reference: Standards of Medical Care in Diabetes 2016, [place] [employer]. Diabetes Care. 2016.39(Suppl 1). Results may be falsely elevated after the administration of Sulfapyridine. Results may be falsely depressed after the administration of Sulfasalazine. Performed By: #### 2 4323-8, ####[facility] LABORATORYCLIA [id number] [place] [id number] [place] Potassium [Moles/Vol] 4.2 mmol/L Normal 3.5-5.1 [facility] Comment on above: Order Comment: Speci men Type: BLOOD SPECIMENOrdering Facility: [facility] Address: [address] [place] [address] Performed By: #### 2 43238, ####[facility] LABORATORYCLIA [id number] [place] [id number] [place] Protein [Mass/Vol] 6.2 g/dL Normal 6.0-8.5 [facility] Comment on above: Order Comment: Speci men Type: BLOOD SPECIMENOrdering Facility: [facility] Address: [address] [place] [address] Performed By: #### 2 4323-8, ####[facility] LABORATORYCLIA [id number] [place] [id number] [place] Sodium [Moles/Vol] 137 mmol/L Normal 136-145 [facility] Comment on above: Order Comment: Speci men Type: BLOOD SPECIMENOrdering Facility: [facility] Address: [address] [place] [address] Performed By: #### 2 4323-8, ####[facility] LABORATORYCLIA [id number] [place] [id number] [place] Urea nitrogen [Mass/Vol] 27 mg/dL High 7-26 [facility] Comment on above: Order Comment: Speci men Type: BLOOD SPECIMENOrdering Facility: [facility] Address: [address] [place] [address] Performed By: #### 2 4323-8, 90723-4 ####[facility] LABORATORYCLIA [id number] [place] [address] [facility] Magnesium SerPl-mCncon 03-06 Magnesium [Mass/Vol] 1.9 mg/dL Normal 1.6-2.6 [facility] Comment on above: Order Comment: Speci men Type: BLOOD SPECIMENOrdering Facility: [facility] Address: [address] [place] [address] Performed By: #### 2 4323-8, 72083-3 ####[facility] LABORATORYCLIA [id number] [place] [address] [facility] THERAPY NTon 03-05-2025 THERAPY NT HNO ID: [id number] Author: SCHUYLER MA PT Service: ? Author Type: Physical Therapist Type: Therapy (PT/OT/Speech/Resp) Filed: 03/05/2025 15:51 Note Text: Physical Therapy Evaluation Summary SERVICE DATE: 03/05/2025 SERVICE TIME: 1402 to 1430 ROOM: [place] [address] PT 6 Clicks Score: 8 DISCHARGE RECOMMENDATIONS Subacute/SNF Recommended Discharge Disposition Comments: Pt would benefit from continued skilled care to improve functional deficits and safety within the home Recommended Discharge Disposition Due to: Patient requires daily (5x/week) skilled therapy at next level of care. Anticipated Discharge Needs: Physical Assist at Home, Supervision at Home Physical Assist at Home for: Transfers, Ambulation, Cleaning, Laundry, Meals, Safety, Shopping, Transportation Supervision at Home due to: Decreased safety awareness Recommended Discharge Equipment: To Be Determined ASSESSMENT Response to Therapy Interventions: Good Participation in Activities, Low Activity Tolerance Pt demonstrated good participation in therapy interventions performed this date. Pt was able to complete bed mobility with max A x2 including rolling and supine to sit. Pt demonstrated deficits in gross strength and had sensation deficits in the C3-T4 distribution of his upper body. Pt was unable to perform a STS transfer without total assist from 2 therapists and was only able to maintain the position for approximately 10 seconds before needing to sit down. Pt would not be safe to return home at this time due to safety concerns with his functional mobility. PRECAUTIONS Bed/Chair Alarm, Fall Risk x2A CURRENT HOSPITAL COURSE Pt presents to [facility] with recurrent falls and generalized weakness Relevant Past Medical History: Spinal stenosis, HTN, HLD, GERD HOME LIVING Patient Lives With: Spouse Assistance Available: 24-Hour Entry To Home: Ramp Number Of Stairs To Bed/Bath: 0 Tub/Shower Type: Walk-in shower (sponge bathes) Laundry: Spouse completes Equipment Owned: Wheelchair- Power, Other: See Comment, Rollator, Lift Chair, Hospital Bed (mechanical lift system called dignity lift, sit to stand device) PRIOR FUNCTIONAL LEVEL Required Assistance Assistance Required With: Transfers, Ambulation, Cleaning, Laundry, Meals, Medication Management, Stairs, Safety, Self Care, Transportation, Shopping Pt reports he has multiple devices to help with transfers including multiple lift chairs, sit to stand device, and mechanical lift device he calls the dignity lift. Pt reports that he was able to ambulate using a rollator with the brakes locked approximately 30 ft by dragging his feet. Pt reports that his assists with IADLs and ADLs at baseline. SUBJECTIVE Pt agreeable to therapy interventions THERAPY DIAGNOSIS Reduced mobility-other TREATMENT INTERVENTIONS Evaluation, Therapeutic Exercise (65982) Timed Code Treatment (minutes): 13 Skilled Treatment Time (minutes): 28 TRAINING AND EDUCATION PROVIDED Assistive Device Use, Bed Mobility, Benefits of In-Hospital Mobility, Discharge Planning, Disease Specific Education, Energy Conservation, Expected Functional Level, Falls Prevention, Home Safety, Role of Physical Therapy, Sitting Balance, Transfers THERAPEUTIC SKILLS USED Activity Dosing, Cues for Sequencing/Proper Technique for Activity, Cuing Verbal, Cuing Visual, Movement Facilitation, Physical Assist FUNCTIONAL STATUS Bed Mobility Rolling: Maximal Assistance, Additional Information LE management Supine To Sit: Maximal Assistance, Additional Information Max x2 for LE management and UE management. Sit to Supine: Maximal Assistance, Additional Information max A x2 Scooting: Maximal Assistance Transfers Sit To Stand: Total Assistance, Additional Information Pt unable to provide any physical assist and was a total assist to perform STS transfer with 2 therapists. Stand To Sit: Total Assistance Bed to Chair Gait Stairs GOALS Patient will demonstrate progress with functional mobility to allow safe discharge to home with available support and/or physical assistance. Rolling with: Minimal Assistance Transfer Supine to/from Sit with: Minimal Assistance Rehab Potential: Fair Fair Rehab Potential Due To: Limited tolerance to activity Progress Toward Goals: Progressing as expected ACUTE CARE TREATMENT PLAN PT Frequency: 5 Times Per Week Treatment Interventions: Education, Energy Conservation Training, Strengthening, Functional Mobility Training, Balance Training, Neuromuscular Re-education Plan for Next Visit: Bed Mobility, Sit to Stand Transfers, Standing Tolerance SIGNATURE: Schuyler Ma PT PATIENT NAME: Tam Cervantes Eclem DATE: March 05, 2025 TIME: 3:50 PM Normal [facility] THERAPY NT HNO ID: [id number] Author: CHINA MOORE OTR/L Service: Occupational Therapy Author Type: Occupational Therapist Type: Therapy (PT/OT/Speech/Resp) Filed: 03/05/2025 14:57 Note Text: Occupational Therapy Evaluation Summary SERVICE DATE: 03/05/2025 SERVICE TIME: 1356 to 1428 ROOM: [place] [address] OT 6 Clicks Score: 10 DISCHARGE RECOMMENDATIONS Subacute/SNF Recommended Discharge Disposition Comments: To maximize safety and level of IND during functional task completion Recommended Discharge Disposition Due to: Patient requires daily (5x/week) skilled therapy at next level of care. ASSESSMENT Response to Therapy Interventions: Low Activity Tolerance Pt with fair tolerance to OT evaluation. Pt is highly motivated to participate. He presents with generalized weakness and decreased activity tolerance which are limiting his ability to function at baseline. Pt currently req Max A x 2 for bed mobility and Total A x 2 for attempt at STS. May benefit from trialing build-up handles/adaptive utensils and head loader strength HEP next session to promote increased ease with BADL completion. PRECAUTIONS Bed/Chair Alarm, Fall Risk x2A CURRENT HOSPITAL COURSE Pt presents to [facility] with recurrent falls and generalized weakness Relevant Past Medical History: Spinal stenosis, HTN, HLD, GERD HOME LIVING Patient Lives With: Spouse Assistance Available: 24-Hour Entry To Home: Ramp Number Of Stairs To Bed/Bath: 0 Tub/Shower Type: Walk-in shower (Sponge-bathing) Laundry: Spouse completes Equipment Owned: Wheelchair- Power, Other: See Comment, Rollator, Lift Chair, Hospital Bed (Mechanical lift system, sit to stand device) PRIOR FUNCTIONAL LEVEL Required Assistance Assistance Required With: Transfers, Ambulation, Cleaning, Laundry, Meals, Medication Management, Stairs, Safety, Self Care, Transportation, Shopping Some difficulty gathering hx on pts PLOF as he is very tangential. Pt reports having multiple lift chairs, mechanical lift devices, and a sit to stand device to assist with functional transfes. Pt reports once standing, he was able to ambulate ~30 ft with a rollator by dragging his feet. Spouse assists with all I/ADL completion at baseline. SUBJECTIVE Pt agreeable to OT evaluation COGNITION Orientation Deficits: (A+O x 4) Responsiveness: Alert, Awake Follows Commands: 2-step Commands, Cueing Needed Cueing to Follow Commands: Moderate Attention Deficits: Distractible, Divided THERAPY DIAGNOSIS Reduced mobility-other, Decreased activities of daily living (ADL), Muscle Weakness (generalized) TREATMENT INTERVENTIONS Evaluation Skilled Treatment Time (minutes): 32 TRAINING AND EDUCATION PROVIDED Bed Mobility, Benefits of In-Hospital Mobility, Discharge Planning, Functional Mobility Involving ADLs, Lower Extremity Dressing, Positioning, Role of Occupational Therapy, Sitting Balance to Improve [place] with ADLs/Self-Care, Transfer - Sit to Stand THERAPEUTIC SKILLS USED Activity Dosing, Bilateral UE Integration, Cues for Sequencing/Proper Technique for Activity, Cuing Tactile, Cuing Verbal, Cuing Visual, Facilitation of Joint Range of Motion, Movement Facilitation, Physical Assist, Therapeutic Use of Self FUNCTIONAL STATUS Activities of Daily Living Assist Level Additional Information Feeding Minimal Assistance Grooming Moderate Assistance Bathing Upper Body Maximal Assistance Bathing Lower Body Total Assistance Dressing Upper Body Maximal Assistance Dressing Lower Body Total Assistance Toileting Total Assistance Mobility Assist Level Additional Information Bed Mobility Supine To Sit: Maximal Assistance, Additional Information x2 - pt with limited active movement to L LE, req assist with azalea LEs and trunk to transition from supine to sitting Sit To Supine: Maximal Assistance, Additional Information x2 Sit to Stand Total Assistance, Additional Information Attempt STS from EOB with arm in arm assist and azalea knee blocking, pt unable to achieve full stand Stand to Sit Total Assistance Bed to Chair Toilet/Commode Shower Functional Mobility GOALS Patient will demonstrate progress to optimize self-care activities, cognitive and/or coping to maximize function upon discharge. Feeding with: Set Up Grooming with: Set Up Upper Body Dressing with: Minimal Assistance Lower Body Dressing with: Moderate Assistance Toilet Hygiene with: Moderate Assistance Chair Transfer with: Maximal Assistance Rehab Potential: Fair Fair Rehab Potential Due To: Multiple co- morbidities, Limited tolerance to activity ACUTE CARE TREATMENT PLAN OT Frequency: 3 Times Per Week Treatment Interventions: Education, Self Care/Home Management, Energy Conservation Training, Functional Mobility Training, Balance Training Plan for Next Visit: Bathing Training, Bed Mobility, Dressing Training, Equipment Needed (specify), Fall Prevention, Feeding Training, Groomin (more content not included)... Normal [facility] Basic metabolic 2000 panelon 03-04-2025 Anion gap [Moles/Vol] 9 mmol/L Normal 5-16 [facility] Comment on above: Order Comment: Speci men Type: BLOOD SPECIMEN [facility] Address: [address] [place] [address] Performed By: #### 2 4323-8, #### [facility] CLIA [id number] [address] [place] [address] [place] Calcium [Mass/Vol] 9.1 mg/dL Normal 8.5-10.5 [facility] Comment on above: Order Comment: Speci men Type: BLOOD SPECIMEN [facility] Address: [address] [place] [address] Performed By: #### 2 4323-8, #### [facility] CLIA [id number] [address] [place] [address] [place] Chloride [Moles/Vol] 100 mmol/L Normal 98-107 [facility] Comment on above: Order Comment: Speci men Type: BLOOD SPECIMEN [facility] Address: [address] [place] [address] Performed By: #### 2 4323-8, #### [facility] CLIA [id number] [address] [place] [address] [place] CO2 [Moles/Vol] 28 mmol/L Normal 21-32 [facility] Comment on above: Order Comment: Speci men Type: BLOOD SPECIMEN [facility] Address: [address] [place] [address] Performed By: #### 2 4323-8, #### [facility] CLIA [id number] [address] [place] [address] [place] Creatinine [Mass/Vol] 0.36 mg/dL Low 0.50-1.40 [facility] Comment on above: Order Comment: Donavon medina Type: BLOOD SPECIMEN [facility] Address: [address] [id number] Result Comment: Seema ents receiving either N-Acetylcysteine (NAC) or Metamizole prior to venipuncture, may have falsely depressed results. Performed By: #### 2 4323-8, #### [facility] CLIA [id number] [address] [place] [address] [facility] Creatinine and Glomerular filtration rate.predicted panel (S/P/Bld) 118 mL/min/1.73m??? Normal >=60 [facility] Comment on above: Order Comment: Donavon medina Type: BLOOD SPECIMEN [facility] Address: [address] [place] [address] Result Comment: Verito mated Glomerular Filtration Rate (eGFR) is calculated using the 2020 CKD-EPI creatinine equation. This equation utilizes serum creatinine, sex, and age as parameters. The creatinine assay has traceable calibration to isotope dilution-mass spectrometry. Refer to KDIGO guidelines for clinical interpretation. In patients with unstable renal function, e.g. those with acute kidney injury, the eGFR may not accurately reflect actual GFR. Performed By: #### 2 4323-8, #### [facility] CLIA [id number] [address] [place] [address] [place] Glucose [Mass/Vol] 93 mg/dL Normal 70-100 [facility] Comment on above: Order Comment: Donavon medina Type: BLOOD SPECIMEN [facility] Address: [address] [id number] Result Comment: The [place] Diabetes [employer] (ADA) provides guidance for cutoff values for fasting glucose and random glucose. The ADA defines fasting as no caloric intake for at least 8 hours. Fasting plasma glucose results between 100 to 125 mg/dL indicate increased risk for diabetes (prediabetes). Fasting plasma glucose results greater than or equal to 126 mg/dL meet the criteria for diagnosis of diabetes. In the absence of unequivocal hyperglycemia, results should be confirmed by repeat testing. In a patient with classic symptoms of hyperglycemia or hyperglycemic crisis, random plasma glucose results greater than or equal to 200 mg/dL meet the criteria for diagnosis of diabetes. Reference: Standards of Medical Care in Diabetes 2016, [place] [employer]. Diabetes Care. 2016.39(Suppl 1). Results may be falsely elevated after the administration of Sulfapyridine. Results may be falsely depressed after the administration of Sulfasalazine. Performed By: #### 2 4323-8, #### [facility] CLIA [id number] [address] [place] [address] [place] Potassium [Moles/Vol] 4.2 mmol/L Normal 3.5-5.1 [facility] Comment on above: Order Comment: Donavon medina Type: BLOOD SPECIMEN [facility] Address: [address] [place] [address] Performed By: #### 2 4328, #### [facility] CLIA [id number] [address] [place] [address] [place] Sodium [Moles/Vol] 137 mmol/L Normal 136-145 [facility] Comment on above: Order Comment: Donavon medina Type: BLOOD SPECIMEN [facility] Address: [address] [place] [address] Performed By: #### 2 4328, #### [facility] CLIA [id number] [address] [place] [address] [place] Urea nitrogen [Mass/Vol] 24 mg/dL Normal 7-26 [facility] Comment on above: Order Comment: Donavon medina Type: BLOOD SPECIMEN [facility] Address: [address] [place] [address] Performed By: #### 2 43238, #### [facility] CLIA [id number] [address] [place] [address] [place] CBC W Auto Differential pane l (Bld)on 03-04-2025 Basophils (Bld) [#/Vol] 10*3/uL Normal <0.11 [facility] Comment on above: Order Comment: Speci men Type: BLOOD SPECIMEN [facility] Address: [address] [place] [address] Performed By: #### 2 4323-03, #### [facility] CLIA [id number] [address] [place] [address] [place] Basophils/100 WBC (Bld) 0.3 % Normal [facility] Comment on above: Order Comment: Speci men Type: BLOOD SPECIMEN [facility] Address: [address] [place] [address] Performed By: #### 2 4323-03, #### [facility] CLIA [id number] [address] [place], [place] [id number] [place] Differential cell count method Nom (Bld) Auto Normal [facility] Comment on above: Order Comment: Speci men Type: BLOOD SPECIMEN [facility] Address: [address] [place] [address] Performed By: #### 2 4323-03, #### [facility] CLIA [id number] [address] [place] [address] [place] Eosinophils (Bld) [#/Vol] 0.20 10*3/uL Normal <0.46 [facility] Comment on above: Order Comment: Speci men Type: BLOOD SPECIMEN [facility] Address: [address] [place] [address] Performed By: #### 2 8, #### [facility] CLIA [id number] [address] [place], [place] [id number] [place] Eosinophils/100 WBC (Bld) 3.1 % Normal [facility] Comment on above: Order Comment: Speci men Type: BLOOD SPECIMEN [facility] Address: [address] [place] [address] Performed By: #### 2 4323-03, #### [facility] CLIA [id number] [address] [place], [place] [id number] [place] Erythrocyte distribution width (RBC) [Ratio] 13.6 % Normal 11.5-15.0 [facility] Comment on above: Order Comment: Speci men Type: BLOOD SPECIMEN [facility] Address: [address] [place] [address] Performed By: #### 2 4323-8, 56646-1 #### [facility] CLIA [id number] [address] [place] [address] [place] Hematocrit (Bld) [Volume fraction] 36.8 % Low 39.0-51.0 [facility] Comment on above: Order Comment: Speci men Type: BLOOD SPECIMEN [facility] Address: [address] [place] [address] Performed By: #### 2 4323-8, 66514-5 #### [facility] CLIA [id number] [address] [place] [address] [place] Hemoglobin (Bld) [Mass/Vol] 12.5 g/dL Low 13.0-17.0 [facility] Comment on above: Order Comment: Speci men Type: BLOOD SPECIMEN [facility] Address: [address] [place] [address] Performed By: #### 2 4323-8, 42153-3 #### [facility] CLIA [id number] [address] [place] [address] [place] Immature granulocytes (Bld) [#/Vol] 0.04 10*3/uL Normal <0.10 [facility] Comment on above: Order Comment: Speci men Type: BLOOD SPECIMEN [facility] Address: [address] [place] [address] Performed By: #### 2 4323-8, #### [facility] CLIA [id number] [address] [place], [place] [id number] [place] Immature granulocytes/100 WBC (Bld) 0.6 % Normal [facility] Comment on above: Order Comment: Speci men Type: BLOOD SPECIMEN [facility] Address: [address] [place] [address] Performed By: #### 2 432-8, #### [facility] CLIA [id number] [address] [place] [address] [place] Lymphocytes (Bld) [#/Vol] 2.46 10*3/uL Normal 1.00-4.00 [facility] Comment on above: Order Comment: Speci men Type: BLOOD SPECIMEN [facility] Address: [address] [place] [address] Performed By: #### 2 4328, #### [facility] CLIA [id number] [address] [place] [address] [place] Lymphocytes/100 WBC (Bld) 37.7 % Normal [facility] Comment on above: Order Comment: Speci men Type: BLOOD SPECIMEN [facility] Address: [address] [place] [address] Performed By: #### 2 4328, #### [facility] CLIA [id number] [address] [place] [address] [place] MCH (RBC) [Entitic mass] 32.1 pg Normal 26.0-34.0 [facility] Comment on above: Order Comment: Speci men Type: BLOOD SPECIMEN [facility] Facility: [facility] Address: [address] [place] [address] Performed By: #### 2 8, #### [facility] CLIA [id number] [address] [place], [place] [id number] [place] MCHC (RBC) [Mass/Vol] 34.0 g/dL Normal 30.5-36.0 [facility] Comment on above: Order Comment: Speci men Type: BLOOD SPECIMEN Ordering Facility: [facility] Address: [address] [place] [address] Performed By: #### 2 4323-03, #### [facility] CLIA [id number] [address] [place] [address] [place] MCV (RBC) [Entitic vol] 94.6 fL Normal 80.0-100.0 [facility] Center Comment on above: Order Comment: Speci men Type: BLOOD SPECIMEN Ordering Facility: [facility] Address: [address] [place] [address] Performed By: #### 2 4323-8, #### [facility] CLIA [id number] [address] [place], [place] [id number] [place] Monocytes (Bld) [#/Vol] 0.77 10*3/uL Normal <0.87 [facility] Comment on above: Order Comment: Speci men Type: BLOOD SPECIMEN Ordering Facility: [facility] Address: [address] [place] [address] Performed By: #### 2 4328, #### [facility] CLIA [id number] [address] [place], [place] [id number] [place] Monocytes/100 WBC (Bld) 11.8 % Normal [facility] Comment on above: Order Comment: Speci men Type: BLOOD SPECIMEN Ordering Facility: [facility] Address: [address] [place] [address] Performed By: #### 2 4328, #### [facility] CLIA [id number] [address] [place], [place] [id number] [place] Neutrophils (Bld) [#/Vol] 3.03 10*3/uL Normal 1.45-7.50 [facility] Comment on above: Order Comment: Speci men Type: BLOOD SPECIMEN Ordering Facility: [facility] Address: [address] [place] [address] Performed By: #### 2 4323-8, #### [facility] CLIA [id number] [address] [place], [place] [address] [place] Neutrophils/100 WBC (Bld) 46.5 % Normal [facility] Comment on above: Order Comment: Speci men Type: BLOOD SPECIMEN Ordering Facility: [facility] Address: [address] [place] [address] Performed By: #### 2 4323-8, #### [facility] CLIA [id number] [address] [place] [address] [place] Nucleated RBC (Bld) [#/Vol] 10*3/uL Normal <0.01 [facility] Comment on above: Order Comment: Speci men Type: BLOOD SPECIMEN Ordering Facility: [facility] Address: [address] [id number] Performed By: #### 2 4328, #### [facility] CLIA [id number] [address] [place], [place] [id number] [place] Nucleated RBC/100 WBC (Bld) [Ratio] 0.0 /100 WBC Normal [facility] Comment on above: Order Comment: Speci men Type: BLOOD SPECIMEN Ordering Facility: [facility] Address: [address] [id number] Performed By: #### 2 4328, #### [facility] CLIA [id number] [address] [place], [place] [address] [place] Platelet mean volume (Bld) [Entitic vol] 9.9 fL Normal 9.0-12.7 [facility] Comment on above: Order Comment: Speci men Type: BLOOD SPECIMEN Ordering Facility: [facility] Address: [address] [place] [address] Performed By: #### 2 4323-8, #### [facility] CLIA [id number] [address] [place] [address] [place] Platelets (Bld) [#/Vol] 260 10*3/uL Normal 150-400 [facility] Comment on above: Order Comment: Speci men Type: BLOOD SPECIMEN Ordering Facility: [facility] Address: [address] [place] [address] Performed By: #### 2 4328, #### [facility] CLIA [id number] [address] [place], [place] [address] [place] RBC (Bld) [#/Vol] 3.89 10*6/uL Low 4.20-6.00 [facility] Comment on above: Order Comment: Donavon medina Type: BLOOD SPECIMEN Ordering Facility: [facility] Address: [address] [place] [address] Performed By: #### 2 4323-8, 77053-0 #### [facility] CLIA [id number] [address] [place], [place] [address] [place] WBC (Bld) [#/Vol] 6.52 10*3/uL Normal 3.70-11.00 [facility] Comment on above: Order Comment: Donavon medina Type: BLOOD SPECIMEN Ordering Facility: [facility] Address: [address] [place] [address] Performed By: #### 2 4323-8, 44755-4 #### [facility] CLIA [id number] [address] [place], [place] [id number] [place] ACETYLCHOLINE RECEPTOR MODUL ATING ANTIBODYon 03-03-2025 ACETYLCHOLINE RECEPT/MODULATING 0 % Normal <=45 [facility] Comment on above: Order Comment: Donavon medina Type: BLOOD SPECIMENOrdering Facility: [facility] Address: [address] [place] [address] Result Comment: INTE RPRETIVE INFORMATION: Acetylcholine Modulating Ab Negative .......... 0-45 percent modulating Positive .......... 46 percent or greater modulating Approximately 85-90 percent of patients with myasthenia gravis (MG) express antibodies to the acetylcholine receptor (AChR), which can be divided into binding, blocking, and modulating antibodies. Binding antibody can activate complement and lead to loss of AChR. Blocking antibody may impair binding of acetylcholine to the receptor, leading to poor muscle contraction. Modulating antibody causes receptor endocytosis resulting in loss of AChR expression, which correlates most closely with clinical severity of disease. Approximately 10-15 percent of individuals with confirmed myasthenia gravis have no measurable binding, blocking, or modulating antibodies. This test was developed and its performance characteristics determined by [employer]. It has not been cleared or approved by the [place] Food and Drug Administration. This test was performed in a CLIA certified laboratory and is intended for clinical purposes. Performed By: [facility] [address] [place] [address] Writer Producer: Rena Paige MD, PhD CLIA Number: [id number] Performed By: #### A CEMOD ####[facility] [id number] [place] [address] CBC panel Auto (Bld)on 03-03 Erythrocyte distribution width (RBC) [Ratio] 13.6 % Normal 11.5-15.0 [facility] Comment on above: Order Comment: Speci adam Type: BLOOD SPECIMEN Ordering Facility: [facility] Address: [address] [place] [address] Performed By: #### 5 8410-2 #### [facility] CLIA [id number] [address] [place] [address] [place] Hematocrit (Bld) [Volume fraction] 39.0 % Normal 39.0-51.0 [facility] Comment on above: Order Comment: Speci adam Type: BLOOD SPECIMEN Ordering Facility: [facility] Address: [address] [place] [address] Performed By: #### 5 8410-2 #### [facility] CLIA [id number] [address] [place] [address] [place] Hemoglobin (Bld) [Mass/Vol] 13.2 g/dL Normal 13.0-17.0 [facility] Comment on above: Order Comment: Speci men Type: BLOOD SPECIMEN Ordering Facility: [facility] Address: [address] [place] [address] Performed By: #### 5 8410-2 #### [facility] CLIA [id number] [address] [place] [address] [place] MCH (RBC) [Entitic mass] 32.5 pg Normal 26.0-34.0 [facility] Comment on above: Order Comment: Speci men Type: BLOOD SPECIMEN Ordering Facility: [facility] Address: [address] [place] [address] Performed By: #### 5 8410-2 #### [facility] CLIA [id number] [address] [place] [address] [place] MCHC (RBC) [Mass/Vol] 33.8 g/dL Normal 30.5-36.0 [facility] Comment on above: Order Comment: Speci men Type: BLOOD SPECIMEN Ordering Facility: [facility] Address: [address] [place] [address] Performed By: #### 5 8410-2 #### [facility] CLIA [id number] [address] [place] [address] [place] MCV (RBC) [Entitic vol] 96.1 fL Normal 80.0-100.0 [facility] Comment on above: Order Comment: Speci men Type: BLOOD SPECIMEN Ordering Facility: [facility] Address: [address] [place] [address] Performed By: #### 5 8410-2 #### [facility] CLIA [id number] [address] [place] [address] [place] Nucleated RBC (Bld) [#/Vol] 10*3/uL Normal <0.01 [facility] Comment on above: Order Comment: Speci men Type: BLOOD SPECIMEN Ordering Facility: [facility] Address: [address] [place] [address] Performed By: #### 5 8410-2 #### [facility] CLIA [id number] [address] [place] [address] [place] Platelet mean volume (Bld) [Entitic vol] 9.7 fL Normal 9.0-12.7 [facility] Comment on above: Order Comment: Speci men Type: BLOOD SPECIMEN Ordering Facility: [facility] Address: [address] [place] [address] Performed By: #### 5 8410-2 #### [facility] CLIA [id number] [address] [place] [address] [place] Platelets (Bld) [#/Vol] 254 10*3/uL Normal 150-400 [facility] Comment on above: Order Comment: Speci men Type: BLOOD SPECIMEN Ordering Facility: [facility] Address: [address] [place] [address] Performed By: #### 5 8410-2 #### [facility] CLIA [id number] [address] [place] [address] [place] RBC (Bld) [#/Vol] 4.06 10*6/uL Low 4.20-6.00 [facility] Comment on above: Order Comment: Speci men Type: BLOOD SPECIMEN Ordering Facility: [facility] Address: [address] [place] [address] Performed By: #### 5 8410-2 #### [facility] CLIA [id number] [address] [place] [address] WBC (Bld) [#/Vol] 8.68 10*3/uL Normal 3.70-11.00 [facility] Comment on above: Order Comment: Speci men Type: BLOOD SPECIMEN Ordering Facility: [facility] Address: [address] [place] [address] Performed By: #### 5 8410-2 #### [facility] CLIA [id number] [address] [place] [address] OF [facility] CK SerPl-cCncon 03-03-2025 CK [Catalytic activity/Vol] 98 U/L Normal 26-192 [facility] Comment on above: Order Comment: Speci men Type: BLOOD SPECIMEN Ordering Facility: [facility] Address: [address] [place] [address] Performed By: #### 2 4323-8, 11004-0 #### [facility] CLIA [id number] [address] [place] [address] CONSULTon 03-03-2025 CONSULT HNO ID: [id number] Author: STAN ANGEL MD Service: Neurology General Author Type: Physician Type: Consults Filed: 03/03/2025 17:37 Note Text: NEUROLOGY CONSULT NOTE SERVICE DATE: 03/03/2025 Current Attending Provider: Lakshmi Washington DO CHIEF COMPLAINT: Weakness HPI: Patient is a 74 year old male with history of lumbar spinal stenosis s/p multiple lower thoracic/lumbar laminectomies with fusion admitted for worsening weakness and falls. MRI spine was performed thought to not reveal significant spinal stenosis to explain his symptoms, so Neurology was consulted. The patient states that the weakness in his legs began 5 or 10 years ago during a time when he was having lower back surgeries. At that time, he reports not having significant weakness in his arms. However he thinks he began to notice weakness in his arms and hands around one year ago, but that this weakness has progressed over the last 6 months to the point where he cannot write or even hold the weights to do his therapy. He also has had progressive weakness involving his legs as well since this time. When questioned, he admits to having difficulty swallowing that also began around a year ago as well. He denies any facial weakness, however bilateral facial weakness is apparent on examination. He denies any double vision. He denies any numbness in his arms or legs. He denies worsening of his weakness at any particular time of day or shortness of breath. He denies the weakness starting more on one side than the other. ROS: 10-point review of systems negative except as noted, unless unobtainable. PAST MEDICAL HISTORY Diagnosis Date Amblyopia Ankle fracture 01/21/2021 left Lumbar stenosis Pseudophakia, both eyes Spondylosis with myelopathy, lumbar region PAST SURGICAL HISTORY Procedure Laterality Date BACK SURGERY HX 12/17/2015 L3-5 lami, T11-L3 fusion by Drs. Oscar Gauthier and Brenton Mccabe BACK SURGERY HX 09/2014 L3-5 decompression, fusion by Dr. Mccabe BACK SURGERY HX 02/22/2020 lumbar re-exploration, removal of hardware (pedicle screws at L5 AND cross-link between L4/L5), L4- S1 TLIF with PSF per Dr. Sanna Porras CATARACT EXTRACTION W/ INTRAOCULAR LENS IMPLANT HX Right 08/05/2017 Dr. Morejon CATARACT EXTRACTION W/ INTRAOCULAR LENS IMPLANT HX Left 08/12/2017 Dr. Morejon HAND SURGERY HX Left 1974 Social History Tobacco Use Smoking status: Never Smokeless tobacco: Never Vaping Use Vaping status: Never Used Substance Use Topics Alcohol use: No Drug use: Never FAMILY HISTORY Problem Relation Age of Onset Cataract Mother Ovarian cancer Mother Diabetes Paternal Grandfather other (SOFT TISSUE SARCOMA) Father ALLERGIES No Known Allergies Prior to Admission Medications Prescriptions Last Dose Informant Patient Reported? Taking? Food Supplement, Lactose-Free (ENSURE ACTIVE PROTEIN-MUSCLE) liqd Yes Yes Sig: Take 8 ounces by mouth once daily. PEG 400-propylene glycol (SYSTANE ULTRA) 0.4-0.3 % ophthalmic solution Yes No Sig: Use in both eyes as needed. Patient not taking: Reported on 06/03/2021 VITAMIN B COMPLEX (B-COMPLEX ORAL) Yes Yes Sig: Take by mouth once daily. acetaminophen (TYLENOL EXTRA STRENGTH) 500 mg tablet Yes Yes Sig: Take 500 mg by mouth every 8 hours as needed. aspirin (ASPIR-81 ORAL) Yes No Sig: Take by mouth. aspirin 325 mg cap Yes Yes Sig: Take 1 capsule by mouth once daily. diphenhydrAMINE (ZZZQUIL) 25 mg capsule Yes Yes Sig: Take 25 mg by mouth at bedtime as needed. fluticasone (FLONASE ALLERGY RELIEF) 50 mcg/actuation nasal spray Yes No Sig: Use 1 Disputanta in each nostril once daily. Patient not taking: Reported on 06/03/2021 ibuprofen (ADVIL) 200 mg tablet Yes No Sig: Take 200 mg by mouth every 6 hours as needed. levothyroxine (SYNTHROID) 25 mcg tablet Yes Yes multivit-min/FA/lycopen/ lutein (CENTRUM SILVER MEN ORAL) Yes Yes Sig: Take by mouth. pantoprazole DR (PROTONIX) 40 mg tablet Yes No Sig: Take 40 mg by mouth once daily. polyethylene glycol 3350 (MIRALAX, GLYCOLAX) 17 gram packet No Yes Sig: Take 1 Packet by mouth once daily as needed. pravastatin (PRAVACHOL) 10 mg tablet Yes No triamterene-hydroCHLOROt hiazide (MAXZIDE-25) 37.5-25 mg per tablet Yes No Sig: Take 1 tablet by mouth once daily. Facility-Administered Medications: None Current Facility-Administered Medications Medication Dose Route Frequency NaCl 0.9% iv flush bag 20 mL INTRAVENOUS PRN aspirin 81 mg chewable tab(s) 81 mg ORAL DAILY pantoprazole DR 40 mg tab(s) (PROTONIX) 40 mg ORAL DAILY polyethylene glycol 3350 17 g packet 17 g ORAL DAILY PRN acetaminophen 500 mg tab(s) (TYLENOL) 500 mg ORAL q 8 H PRN diphenhydrAMINE 25 mg capsule (BENADRYL) 25 mg ORAL AT BEDTIME PRN levothyroxine 25 mcg tab(s) (SYNTHROID) 25 mcg ORAL DAILY (6 AM) heparin 5,000 Units injection 5,000 Units SUBCUTANEOUS q 12 H oxyCODONE IR 5 mg tab(s) (ROXICODONE) 5 mg ORAL q 8 H PRN (more content not included)... Normal [facility] Comprehensive metabolic 2000 panelon 03-03-2025 Albumin [Mass/Vol] 2.9 g/dL Low 3.2-5.0 [facility] Comment on above: Order Comment: Donavon medina Type: BLOOD SPECIMEN Ordering Facility: [facility] Address: [address] [place] [address] Performed By: #### 2 4323-8, #### [facility] CLIA [id number] [address] [place] [address] [place] ALP [Catalytic activity/Vol] 159 U/L High 45-117 [facility] Comment on above: Order Comment: Donavon medina Type: BLOOD SPECIMEN Ordering Facility: [facility] Address: [address] [place] [address] Performed By: #### 2 4323-8, #### [facility] CLIA [id number] [address] [place], [place] [id number] [place] ALT [Catalytic activity/Vol] 55 U/L Normal 13-61 [facility] Comment on above: Order Comment: Donavon medina Type: BLOOD SPECIMEN Ordering Facility: [facility] Address: [address] [place] [address] Result Comment: Resu lts may be falsely depressed after the administration of Sulfasalazine and/or Sulfapyridine. Performed By: #### 2 4323-8, #### [facility] CLIA [id number] [address] [place], [place] [id number] [place] Anion gap [Moles/Vol] 8 mmol/L Normal 5-16 [facility] Comment on above: Order Comment: Speci men Type: BLOOD SPECIMEN Ordering Facility: [facility] Address: [address] [place] [address] Performed By: #### 2 4323-8, #### [facility] CLIA [id number] [address] [place], [place] [address] [place] AST [Catalytic activity/Vol] 37 U/L High 8-34 [facility] Comment on above: Order Comment: Speci men Type: BLOOD SPECIMEN Ordering Facility: [facility] Address: [address] [place] [address] Result Comment: Resu lts may be falsely depressed after the administration of Sulfasalazine and/or Sulfapyridine. Performed By: #### 2 4323-8, #### [facility] CLIA [id number] [address] [place] [address] [place] Bilirubin [Mass/Vol] 0.8 mg/dL Normal 0.2-1.0 [facility] Comment on above: Order Comment: Speci men Type: BLOOD SPECIMEN Ordering Facility: [facility] Address: [address] [place] [address] Performed By: #### 2 4323-8, #### [facility] CLIA [id number] [address] [place] [address] [place] Calcium [Mass/Vol] 9.2 mg/dL Normal 8.5-10.5 [facility] Comment on above: Order Comment: Speci men Type: BLOOD SPECIMEN Ordering Facility: [facility] Address: [address] [place] [address] Performed By: #### 2 4323-8, #### [facility] CLIA [id number] [address] [place], [place] [id number] [place] Chloride [Moles/Vol] 101 mmol/L Normal 98-107 [facility] Comment on above: Order Comment: Speci men Type: BLOOD SPECIMEN Ordering Facility: [facility] Address: [address] [place] [address] Performed By: #### 2 4323-8, #### [facility] CLIA [id number] [address] [place] [address] [place] CO2 [Moles/Vol] 29 mmol/L Normal 21-32 [facility] Comment on above: Order Comment: Speci men Type: BLOOD SPECIMEN Ordering Facility: [facility] Address: [address] [place] [address] Performed By: #### 2 4323-8, #### [facility] CLIA [id number] [address] [place] [address] [place] Creatinine [Mass/Vol] 0.41 mg/dL Low 0.50-1.40 [facility] Comment on above: Order Comment: Speci men Type: BLOOD SPECIMEN Ordering Facility: [facility] Address: [address] [place] [address] Result Comment: Seema ents receiving either N-Acetylcysteine (NAC) or Metamizole prior to venipuncture, may have falsely depressed results. Performed By: #### 2 4323-8, #### [facility] CLIA [id number] [address] [place] [address] [place] Creatinine and Glomerular filtration rate.predicted panel (S/P/Bld) 114 mL/min/1.73m??? Normal >=60 [facility] Comment on above: Order Comment: Speci men Type: BLOOD SPECIMEN Ordering Facility: [facility] Address: [address] [place] [address] Result Comment: Verito mated Glomerular Filtration Rate (eGFR) is calculated using the 2020 CKD-EPI creatinine equation. This equation utilizes serum creatinine, sex, and age as parameters. The creatinine assay has traceable calibration to isotope dilution-mass spectrometry. Refer to KDIGO guidelines for clinical interpretation. In patients with unstable renal function, e.g. those with acute kidney injury, the eGFR may not accurately reflect actual GFR. Performed By: #### 2 4323-8, #### [facility] CLIA [id number] [address] [place] [address] [place] Glucose [Mass/Vol] 91 mg/dL Normal 70-100 [facility] Comment on above: Order Comment: Donavon medina Type: BLOOD SPECIMEN Ordering Facility: [facility] Address: [address] [place] [address] Result Comment: The [place] [employer] (ADA) provides guidance for cutoff values for fasting glucose and random glucose. The ADA defines fasting as no caloric intake for at least 8 hours. Fasting plasma glucose results between 100 to 125 mg/dL indicate increased risk for diabetes (prediabetes). Fasting plasma glucose results greater than or equal to 126 mg/dL meet the criteria for diagnosis of diabetes. In the absence of unequivocal hyperglycemia, results should be confirmed by repeat testing. In a patient with classic symptoms of hyperglycemia or hyperglycemic crisis, random plasma glucose results greater than or equal to 200 mg/dL meet the criteria for diagnosis of diabetes. Reference: Standards of Medical Care in Diabetes 2016, [place] [employer]. Diabetes Care. 2016.39(Suppl 1). Results may be falsely elevated after the administration of Sulfapyridine. Results may be falsely depressed after the administration of Sulfasalazine. Performed By: #### 2 4323-8, #### [facility] CLIA [id number] [address] [place] [address] [place] Potassium [Moles/Vol] 4.2 mmol/L Normal 3.5-5.1 [facility] Comment on above: Order Comment: Donavon medina Type: BLOOD SPECIMEN Ordering Facility: [facility] Address: [address] [id number] Performed By: #### 2 4323-8, #### [facility] CLIA [id number] [address] [place] [address] [place] Protein [Mass/Vol] 6.2 g/dL Normal 6.0-8.5 [facility] Comment on above: Order Comment: Donavon medina Type: BLOOD SPECIMEN Ordering Facility: [facility] Address: [address] [id number] Performed By: #### 2 4323-8, #### [facility] CLIA [id number] [address] [place] [address] [place] Sodium [Moles/Vol] 138 mmol/L Normal 136-145 [facility] Comment on above: Order Comment: Speci men Type: BLOOD SPECIMEN Ordering Facility: [facility] Address: [address] [place] [address] [place] [address] Performed By: #### 2 4323-8, 20947-7 #### [facility] CLIA [id number] [address] [place] [address] [place] Urea nitrogen [Mass/Vol] 22 mg/dL Normal 7-26 [facility] Comment on above: Order Comment: Speci men Type: BLOOD SPECIMEN Ordering Facility: [facility] Address: [address] [place] [address] [place] [address] Performed By: #### 2 4323-8, 24723-2 #### [facility] CLIA [id number] [address] [place] [address] [place] ESR Westergren method (Bld) [Velocity]on 03-03-2025 ESR (Bld) [Velocity] 28 mm/h High 0-20 [facility] Comment on above: Order Comment: Speci men Type: BLOOD SPECIMEN [facility] [facility] Address: [address] [place] [address] Performed By: #### 2 4323-8, 00848-4 #### [facility] CLIA [id number] [address] [place] [address] [place] MUSCLE-SPECIFIC KINASE (MUSK ) AUTOANTIBODY, SERUMon 03-03-2025 MUSK ANTIBODY 0.00 nmol/L Normal 0.00-0.02 [facility] Comment on above: Order Comment: Speci men Type: BLOOD SPECIMENOrdering Facility: [facility] Address: [address] [place] [address] [place] [address] Result Comment: ADDITIONAL INFORMATION This test was developed using an analyte specific reagent. Its performance characteristics were determined by [facility] in a manner consistent with CLIA requirements. This test has not been cleared or approved by the U.S. Food and Drug Administration. Test Performed by: [facility] - [facility] [address] [place] [address] Metal Bench Patternmaker: Lucie Fatima Ph.D.; CLIA# [id number] Performed By: #### M USK ####[facility] LABCLIA [id number] [place] [address] Magnesium SerPl-mCncon 03-03 Magnesium [Mass/Vol] 1.8 mg/dL Normal 1.6-2.6 [facility] Comment on above: Order Comment: Speci men Type: BLOOD SPECIMEN Ordering Facility: [facility] Address: [address] [place] [address] Performed By: #### 2 4323-8, 51424-7 #### [facility] CLIA [id number] [address] [place] [address] [place] Methylmalonate SerPl-sCncon 03-03-2025 Methylmalonate [Moles/Vol] 0.14 umol/L Normal <=0.40 [facility] Comment on above: Order Comment: Speci men Type: BLOOD SPECIMENOrdering Facility: [facility] Address: [address] [place] [address] Result Comment: This test was developed, and its performance characteristics determined by the [facility] Department of Pathology and Laboratory Medicine. It has not been cleared or approved by the FDA. The [facility] Department of Pathology and Laboratory Medicine is regulated under CLIA as qualified to perform high-complexity testing. This test is used for clinical purposes. It should not be regarded as investigational or for research. Performed By: #### 1 3964-2 ####[facility] [id number] [place] [address] [place] TSH W/REFLEX FT4on 5 TSH Qn 2.293 m[IU]/L Normal 0.358-3.740 [facility] Comment on above: Order Comment: Speci men Type: BLOOD SPECIMEN Ordering Facility: [facility] Address: [address] [place] [address] Result Comment: 3rd generation ultra sensitive TSH. Performed By: #### 2 4323-8, 75319-6 #### [facility] CLIA [id number] [address] [facility] [place] [address] [place] Vit B12 SerPl-ncon 03-03- 025 Cobalamin (Vitamin B12) [Mass/Vol] 1160 pg/mL High 193-986 [facility] Comment on above: Order Comment: Speci men Type: BLOOD SPECIMEN Ordering Facility: [facility] Address: [address] [place] [address] [place] [address] Performed By: #### 2 4323-8, 88262-7 #### [facility] CLIA [id number] [address] [place] [address] [place] ALLIED HEALTHon 03-02-2025 ALLIED HEALTH HNO ID: [id number] Author: RUKHSANA BARRIGA Tech Service: Radiology Author Type: Technologist Type: Allied Health Filed: 03/02/2025 16:21 Note Text: -------- Summary: ct -------- Radiology Service Progress Note PATIENT NAME: Tam Walsh DATE OF SERVICE: March 02, 2025 TIME: 4:21 PM PATIENT IDENTITY VERIFICATION COMPLETED USING TWO (2) IDENTIFIERS: Name and Date of confirmed by patient verbally. FALL SCREENING: Has the patient had 2 falls in the last year or 1 fall with injury or currently using an Ambulatory Assistive Device (Walker, Cane, Wheelchair, Crutches, etc.)? No PATIENT GENDER DATA: Assigned male at PATIENT RELEVANT IMPLANT DATA REVIEWED: Yes PATIENT PRESENTS WITH AN IMPLANTABLE OR ATTACHED MARKET INTELLIGENCE CONSULTANT: No RADIOLOGY DEPARTMENT: CT; Exam(s) Completed: Spine PERIPHERAL IV DATA: Not applicable SIGNED BY: Meliza Singer March 02, 2025 4:21 PM [facility] ANES POSTPROC EVALon 025 ANES POSTPROC EVAL HNO ID: [id number] Author: SHA REDMOND MD Service: Anesthesiology Author Type: Anesthesiologist Type: Anesthesia Postprocedure Evaluation Filed: 03/02/2025 16:40 Note Text: POST ANESTHESIA EVALUATION NOTE : 1950 Procedure Summary Date: 03/02/25 Room / Location: MR MRI / MR IR Anesthesia Start: 1448 Anesthesia Stop: 161 Procedure: mri with anesthesia lumbar spine cervical spine thoracic spine (Pending) Diagnosis: Abnormal neurological exam (Abnormal neurological exam [R29.90]) Surgeons: Missael Arteaga MD Responsible Provider: Sha Redmond MD Anesthesia Type: general ASA Status: 3 Anesthesia Type: general Airway Type: LMA Last Vitals Vitals Value Taken Time BP 143/68 03/02/25 1631 Temp 36.6 ?C (97.9 ?F) 03/02/25 1613 Pulse 92 03/02/25 1638 Resp 20 03/02/25 1630 SpO2 96 % 03/02/25 1638 Vitals shown include unfiled device data. Post Anesthesia Patient Status Patient Evaluation: PACU. Anticipated Disposition: inpatient floor planned admission. Neurological Status: aware and responsive. Pulmonary Status: breathing comfortably on room air Airway Control: returned to baseline unsupported. Cardiovascular Status: stable. Pain Management: clinically adequate Postoperative Hydration: acceptable. Intraoperative Events: no significant anesthesia events Post Operative Nausea/Vomiting Status: no significant post operative nausea or vomiting Recommendation: further care per PACU/ICU/floor team. Anesthesia Observations No Documentation SIGNATURE: Sha Redmond MD PATIENT NAME: Tam Walsh DATE: March 02, 2025 TIME: 4:40 PM CSN: [id number] [facility] ANES PRE-OPon 03-02-2025 ANES PRE-OP HNO ID: [id number] Author: SHA REDMOND MD Service: Anesthesiology Author Type: Anesthesiologist Type: Anesthesia Preprocedure Evaluation Filed: 03/02/2025 13:20 Note Text: ANESTHESIOLOGY DAY OF SURGERY NOTE : 1950 Procedure Information Date/Time: 03/02/25 1200 Procedure: mri with anesthesia lumbar spine cervical spine thoracic spine (Pending) - carlton dhillon do per rosenda put on snap board .03/02/25 at 12:00 ab 03/02/25 02/28/2025 was cancelled Location: MR MRI / MR IR Surgeons: Missael Arteaga MD Estimated body mass index is 28.6 kg/m? as calculated from the following: Height as of this encounter: 180.3 cm (5' 11). Weight as of this encounter: 93 kg (205 lb 0.4 oz). Most recent hematocrit and potassium results: Hematocrit 39.3 02/27/2025 Potassium 4.0 02/26/2025 Relevant Problems ANESTHESIA (within normal limits) CARDIO (within normal limits) ENDO (within normal limits) GI (+) Gastro-esophageal reflux disease without esophagitis -RENAL (within normal limits) NEURO-PSYCH (within normal limits) PULMONARY (within normal limits) I - PHYSICAL EVALUATION AIRWAY Patient intubated: No. Tracheostomy tube not present Mallampati: II. TM distance: >3 FB. Neck ROM: full ROM without neurological symptoms. Mouth opening: adequate. Short neck: no. Thick neck: no DENTAL Dental findings: teeth intact. Additional exam findings: no II - ANESTHESIA PLAN ASA Score: 3 Anesthetic Plan: general Airway type: LMA The patient is not a current smoker. NPO Status: adequate Beta Johnnie Monitoring Plan Monitoring plan: standard ASA. Post Procedure Analgesic Plan Postoperative analgesic plan: parenteral or oral opioids. Informed Consent Anesthetic risks, benefits, alternatives, personnel and consent discussed: yes. Patient / Responsible Constitution Party agrees to proceed: yes Patient / Surrogate agrees to blood products: Yes Potential Anesthesia issues that may suggest increased risk of complications or contraindication to planned procedure: none. Vitals Value Taken Time BP 132/75 03/02/25 1315 Pulse 78 03/02/25 1318 Resp 19 03/02/25 1151 Temp 36.9 ?C (98.4 ?F) 03/02/25 1151 SpO2 97 % 03/02/25 1318 Vitals shown include unfiled device data. Facility-Administered Medications as of 03/02/2025 Medication Dose Route Frequency - oxyCODONE IR 5 mg tab(s) (ROXICODONE) 5 mg ORAL q 8 H PRN - NaCl 0.9% iv flush bag 20 mL INTRAVENOUS PRN - aspirin 81 mg chewable tab(s) 81 mg ORAL DAILY - pantoprazole DR 40 mg tab(s) (PROTONIX) 40 mg ORAL DAILY - polyethylene glycol 3350 17 g packet 17 g ORAL DAILY PRN - acetaminophen 500 mg tab(s) (TYLENOL) 500 mg ORAL q 8 H PRN - diphenhydrAMINE 25 mg capsule (BENADRYL) 25 mg ORAL AT BEDTIME PRN - levothyroxine 25 mcg tab(s) (SYNTHROID) 25 mcg ORAL DAILY (6 AM) - heparin 5,000 Units injection 5,000 Units SUBCUTANEOUS q 12 H Outpatient Medications as of 03/02/2025 Medication Sig - levothyroxine (SYNTHROID) 25 mcg tablet - aspirin 325 mg cap Take 1 capsule by mouth once daily. - acetaminophen (TYLENOL EXTRA STRENGTH) 500 mg tablet Take 500 mg by mouth every 8 hours as needed. - multivit-min/FA/lycopen/ lutein (CENTRUM SILVER MEN ORAL) Take by mouth. - polyethylene glycol 3350 (MIRALAX, GLYCOLAX) 17 gram packet Take 1 Packet by mouth once daily as needed. - diphenhydrAMINE (ZZZQUIL) 25 mg capsule Take 25 mg by mouth at bedtime as needed. - VITAMIN B COMPLEX (B-COMPLEX ORAL) Take by mouth once daily. - pravastatin (PRAVACHOL) 10 mg tablet - triamterene-hydroCHLOROt hiazide (MAXZIDE-25) 37.5-25 mg per tablet Take 1 tablet by mouth once daily. - ibuprofen (ADVIL) 200 mg tablet Take 200 mg by mouth every 6 hours as needed. - aspirin (ASPIR-81 ORAL) Take by mouth. - fluticasone (FLONASE ALLERGY RELIEF) 50 mcg/actuation nasal spray Use 1 [place] in each nostril once daily. (Patient not taking: Reported on 06/03/2021 ) - PEG 400-propylene glycol (SYSTANE ULTRA) 0.4-0.3 % ophthalmic solution Use in both eyes as needed. (Patient not taking: Reported on 06/03/2021 ) - pantoprazole DR (PROTONIX) 40 mg tablet Take 40 mg by mouth once daily. I have interviewed and examined the patient. I have reviewed the medical record and/or the pre-anesthesia evaluation, pertinent labs, and test results. This contains updated information obtained within 48 hours of Surgery/Procedure. SIGNATURE: Sha Redmond MD PATIENT NAME: Tam Walsh DATE: March 02, 2025 TIME: 1:19 PM CSN: [id number] [facility] CT LUMBAR SPINE WO IVCONon 0 03-02-2025 CT LUMBAR SPINE WO IVCON * * *Final Report* * * DATE OF EXAM: Mar 02 2025 4:26PM [facility] 0508 - CT LUMBAR SPINE WO IVCON / PROCEDURE REASON: Spine fracture, lumbar, traumatic * * * * Physician Interpretation * * * * EXAMINATION: CT THORACIC SPINE WO IVCON, CT LUMBAR SPINE WO IVCON CLINICAL HISTORY: Spine fracture, thoracic, pathological TECHNIQUE: Spiral, high resolution axial unenhanced images were obtained from the cervicothoracic junction to the sacrum with sagittal and coronal planar reconstructions. MQ: CTTLWO_3 CT Radiation dose: Integrated Dose-Length Product (DLP) for this visit = 2001.85 mGy*cm. CT Dose Reduction Employed: Automated exposure control(AEC) and iterative recon COMPARISON: Thoracic and lumbar MRI 03/02/2025. RESULT: THORACIC: Counting reference: Cervicothoracic and lumbosacral junctions. Assume first thoracic rib is the T1 level. For the purposes of this report, L4-5 is considered the level of the iliac crest and assume there are 5 lumbar-type vertebrae. Anatomic variant: None. Vault Clerk (topogram) images: Unremarkable Alignment: Alignment is anatomic. Bone marrow / fracture: Cervical fusion and T11 extending caudally through the lumbar spine detailed below. The transpedicular screw at left T11 is somewhat cranially oriented, extending into the T10-11 intervertebral space. There is questionable lucency about the T11 transpedicular screws. This could indicate loosening. No acute fracture or compression deformities. Diffuse idiopathic skeletal hyperostosis of the mid and lower thoracic spine. Thoracic soft tissues: The paraspinal soft tissues planes are maintained. Canal and foramina: The bony thoracic canal and foramina are patent. LUMBAR: Counting reference: Cervicothoracic and lumbosacral junctions. Assume first thoracic rib is the T1 level. For the purposes of this report, L4-5 is considered the level of the iliac crest and assume there are 5 lumbar-type vertebrae. Anatomic variant: None. Vault Clerk (topogram) images: Unremarkable Alignment: 1.2 cm retrolisthesis L4 on 5. Bone marrow / fracture: Generalized bone demineralization. No acute fracture. No chronic compression deformity. Surgical changes related to decompressive laminectomies L1-L2 and L4-5 with posterior fusion from T11 through S1. The vertical stabilizing rods are discontinuous bilaterally at L4-5. When correlated with the 02/22/[address] this likely reflects fracture. There is solid osseous fusion across the disc spaces and/or posterior elements from T11 through S1. Paraspinal soft tissues: Expected surgical changes in the soft tissues. L1-L2: Central canal dorsally decompressed. Canal and foramina are patent. L2-L3: Moderate bilateral foraminal stenosis due to facet hypertrophy. Central canal is patent. L3-L4: Canal and foramina are patent L4-L5: Canal and foramina are patent. Central canal dorsally decompressed. L5-S1: Mild central and severe bilateral foraminal stenosis greater on the right, due to degenerative disc and facet hypertrophy Sacrum and iliac wings: The visualized sacrum and iliac wings are within normal limits. The presacral soft tissues are normal in appearance. IMPRESSION: 1. Posterior fusion T11-S1. The left T11 transpedicular screw is somewhat cranially oriented, extending into the T10-11 intervertebral space. There is questionable lucency about the T11 transpedicular screws. This could indicate loosening. 2. The vertical stabilizing rods are fractured bilaterally at L4-5. 3. Degenerative changes described above. 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: LIZETTE Transcribe Date/Time: Mar 02 2025 9:12P Dictated by : AZUL LOWE MD This examination was interpreted and the report reviewed and electronically signed by: AZUL LOWE MD on Mar 02 2025 9:29PM EST [id number] [facility] CT THORACIC SPINE WO IVCONon 03-02-2025 CT THORACIC SPINE WO IVCON * * *Final Report* * * DATE OF EXAM: Mar 02 2025 4:26PM [facility] 0514 - CT THORACIC SPINE WO IVCON / PROCEDURE REASON: Spine fracture, thoracic, pathological * * * * Physician Interpretation * * * * EXAMINATION: CT THORACIC SPINE WO IVCON, CT LUMBAR SPINE WO IVCON CLINICAL HISTORY: Spine fracture, thoracic, pathological TECHNIQUE: Spiral, high resolution axial unenhanced images were obtained from the cervicothoracic junction to the sacrum with sagittal and coronal planar reconstructions. MQ: CTTLWO_3 CT Radiation dose: Integrated Dose-Length Product (DLP) for this visit = 2001.85 mGy*cm. CT Dose Reduction Employed: Automated exposure control(AEC) and iterative recon COMPARISON: Thoracic and lumbar MRI 03/02/2025. RESULT: THORACIC: Counting reference: Cervicothoracic and lumbosacral junctions. Assume first thoracic rib is the T1 level. For the purposes of this report, L4-5 is considered the level of the iliac crest and assume there are 5 lumbar-type vertebrae. Anatomic variant: None. Vault Clerk (topogram) images: Unremarkable Alignment: Alignment is anatomic. Bone marrow / fracture: Cervical fusion and T11 extending caudally through the lumbar spine detailed below. The transpedicular screw at left T11 is somewhat cranially oriented, extending into the T10-11 intervertebral space. There is questionable lucency about the T11 transpedicular screws. This could indicate loosening. No acute fracture or compression deformities. Diffuse idiopathic skeletal hyperostosis of the mid and lower thoracic spine. Thoracic soft tissues: The paraspinal soft tissues planes are maintained. Canal and foramina: The bony thoracic canal and foramina are patent. LUMBAR: Counting reference: Cervicothoracic and lumbosacral junctions. Assume first thoracic rib is the T1 level. For the purposes of this report, L4-5 is considered the level of the iliac crest and assume there are 5 lumbar-type vertebrae. Anatomic variant: None. Vault Clerk (topogram) images: Unremarkable Alignment: 1.2 cm retrolisthesis L4 on 5. Bone marrow / fracture: Generalized bone demineralization. No acute fracture. No chronic compression deformity. Surgical changes related to decompressive laminectomies L1-L2 and L4-5 with posterior fusion from T11 through S1. The vertical stabilizing rods are discontinuous bilaterally at L4-5. When correlated with the 02/22/[address] this likely reflects fracture. There is solid osseous fusion across the disc spaces and/or posterior elements from T11 through S1. Paraspinal soft tissues: Expected surgical changes in the soft tissues. L1-L2: Central canal dorsally decompressed. Canal and foramina are patent. L2-L3: Moderate bilateral foraminal stenosis due to facet hypertrophy. Central canal is patent. L3-L4: Canal and foramina are patent L4-L5: Canal and foramina are patent. Central canal dorsally decompressed. L5-S1: Mild central and severe bilateral foraminal stenosis greater on the right, due to degenerative disc and facet hypertrophy Sacrum and iliac wings: The visualized sacrum and iliac wings are within normal limits. The presacral soft tissues are normal in appearance. IMPRESSION: 1. Posterior fusion T11-S1. The left T11 transpedicular screw is somewhat cranially oriented, extending into the T10-11 intervertebral space. There is questionable lucency about the T11 transpedicular screws. This could indicate loosening. 2. The vertical stabilizing rods are fractured bilaterally at L4-5. 3. Degenerative changes described above. 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: LIZETTE Transcribe Date/Time: Mar 02 2025 9:12P Dictated by : AZUL LOWE MD This examination was interpreted and the report reviewed and electronically signed by: AZUL LOWE MD on Mar 02 2025 9:29PM EST [id number] [facility] MRI LUMBAR SPINE WO IVCONon 03-02-2025 MRI LUMBAR SPINE WO IVCON * * *Final Report* * * DATE OF EXAM: Mar 02 2025 3:51PM [facility] 0303 - MRI LUMBAR SPINE WO IVCON / PROCEDURE REASON: Back trauma, abnormal neuro exam, CT or xray positive (Age >= 16y) * * * * Physician Interpretation * * * * EXAMINATION: MRI LUMBAR SPINE WO IVCON, MRI THORACIC SPINE WO IVCON CLINICAL HISTORY: Back trauma, abnormal neuro exam, CT or x-ray positive (Age >= 16y); falls with increasing thickness TECHNIQUE: Routine lumbosacral and thoracic spine MR protocol without gadolinium. MQ: MRTLWO_3 COMPARISON: Cervical spine MRI, 02/28/2025, lumbar spine CT, 02/22/2020 lumbar spine MRI, 12/28/2019 RESULT: Counting reference: Craniocervical and lumbosacral junctions. For the purposes of this report, L4-5 is considered the level of the iliac crest and assume there are 5 lumbar-type vertebrae. Anatomic variant: None. Localizer images: Unchanged elevation of the right hemidiaphragm. Degenerative changes in the hips. Colonic diverticulosis. T2 hyperintense renal cysts. Dependent atelectasis in the lungs, worse on the right. Cervical spine degenerative changes, better evaluated previously. THORACIC: Alignment: Exaggeration of the normal thoracic kyphosis with mild anterolisthesis at T3-4. Cord: The thoracic spinal cord is within normal limits of signal intensity and morphology. Bone marrow signal/fracture: Posterior fusion hardware with associated susceptibility artifact at T11 and T12. Degenerative endplate changes without associated marrow edema. Mild multilevel anterior wedging with partial vertebral body fusion at T8-11, no associated marrow edema. Vertebral body heights are otherwise preserved. No focal marrow lesion. Thoracic soft tissues: The paraspinal soft tissues are within normal limits. Canal and foramina: The thoracic canal and foramina are patent. LUMBAR: Alignment: Grade 1 anterolisthesis at L3-4 and L4-5, similar to previous. Bone marrow signal/fracture: Changes of T12-S1 laminectomy, L3-4 and L4-5 discectomy and interbody fusion, and and T11-S1 posterior fusion with associated susceptibility artifact, similar to previous. Degenerative endplate changes, no edema in the visualized marrow. No focal marrow lesion. No evidence of prior fracture. Conus: The visualized spinal cord is normal in morphology and signal intensity. The cauda equina is unremarkable. Paraspinal soft tissues: Postoperative changes with associated granulation tissue and paraspinal muscular atrophy. Nonspecific ill-defined T2 hyperdense signal in the superficial soft tissues overlying the surgical site, increased from previous and possibly representing edema. A small heterogeneous T2 signal intensity collection at the level of L4-5 is similar to previous. No other fluid collection. L1-L2: Postoperative changes with facet hypertrophy, resulting in moderate bilateral neural foramen narrowing. L2-L3: Postoperative changes with facet hypertrophy, resulting in moderate right and severe left neural foramen narrowing. L3-L4: Postoperative changes with a disc osteophyte complex and facet hypertrophy, resulting in mild bilateral neural foramen narrowing. L4-L5: Postoperative changes with a disc osteophyte complex and facet hypertrophy, resulting in moderate bilateral neural foramen narrowing which is similar to previous. L5-S1: Postoperative changes with a disc osteophyte complex and facet hypertrophy, resulting in mild narrowing of both subarticular recesses and moderate left and severe right neural foramen narrowing which is similar to previous. Sacrum and iliac wings: The visualized sacrum and iliac wings are within normal limits. The presacral soft tissues are normal in appearance. IMPRESSION: Extensive postoperative changes in the lower thoracic and lumbosacral spine. Degenerative changes with multilevel lumbar foraminal narrowing, no significant spinal canal narrowing or abnormal cord signal. Anatomic Thoracic/Lumbar Variant: None. L4-5 is considered the level of the iliac crest and assume there are 5 lumbar-type vertebrae. 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: [email or web address] Transcribe Date/Time: Mar 02 2025 3:54P Dictated by : KASSANDRA DIETRICH MD This examination was interpreted and the report reviewed and electronically signed by: KASSANDRA DIETRICH MD on Mar 02 2025 4:09PM EST [id number] Normal [facility] MRI THORACIC SPINE WO IVCONo n 03-02-2025 MRI THORACIC SPINE WO IVCON * * *Final Report* * * DATE OF EXAM: Mar 02 2025 3:51PM [facility] 0325 - MRI THORACIC SPINE WO IVCON / PROCEDURE REASON: Back trauma, abnormal neuro exam, CT or xray positive (Age >= 16y) * * * * Physician Interpretation * * * * EXAMINATION: MRI LUMBAR SPINE WO IVCON, MRI THORACIC SPINE WO IVCON CLINICAL HISTORY: Back trauma, abnormal neuro exam, CT or x-ray positive (Age >= 16y); falls with increasing thickness TECHNIQUE: Routine lumbosacral and thoracic spine MR protocol without gadolinium. MQ: MRTLWO_3 COMPARISON: Cervical spine MRI, 02/28/2025, lumbar spine CT, 02/22/2020 lumbar spine MRI, 12/28/2019 RESULT: Counting reference: Craniocervical and lumbosacral junctions. For the purposes of this report, L4-5 is considered the level of the iliac crest and assume there are 5 lumbar-type vertebrae. Anatomic variant: None. Localizer images: Unchanged elevation of the right hemidiaphragm. Degenerative changes in the hips. Colonic diverticulosis. T2 hyperintense renal cysts. Dependent atelectasis in the lungs, worse on the right. Cervical spine degenerative changes, better evaluated previously. THORACIC: Alignment: Exaggeration of the normal thoracic kyphosis with mild anterolisthesis at T3-4. Cord: The thoracic spinal cord is within normal limits of signal intensity and morphology. Bone marrow signal/fracture: Posterior fusion hardware with associated susceptibility artifact at T11 and T12. Degenerative endplate changes without associated marrow edema. Mild multilevel anterior wedging with partial vertebral body fusion at T8-11, no associated marrow edema. Vertebral body heights are otherwise preserved. No focal marrow lesion. Thoracic soft tissues: The paraspinal soft tissues are within normal limits. Canal and foramina: The thoracic canal and foramina are patent. LUMBAR: Alignment: Grade 1 anterolisthesis at L3-4 and L4-5, similar to previous. Bone marrow signal/fracture: Changes of T12-S1 laminectomy, L3-4 and L4-5 discectomy and interbody fusion, and and T11-S1 posterior fusion with associated susceptibility artifact, similar to previous. Degenerative endplate changes, no edema in the visualized marrow. No focal marrow lesion. No evidence of prior fracture. Conus: The visualized spinal cord is normal in morphology and signal intensity. The cauda equina is unremarkable. Paraspinal soft tissues: Postoperative changes with associated granulation tissue and paraspinal muscular atrophy. Nonspecific ill-defined T2 hyperdense signal in the superficial soft tissues overlying the surgical site, increased from previous and possibly representing edema. A small heterogeneous T2 signal intensity collection at the level of L4-5 is similar to previous. No other fluid collection. L1-L2: Postoperative changes with facet hypertrophy, resulting in moderate bilateral neural foramen narrowing. L2-L3: Postoperative changes with facet hypertrophy, resulting in moderate right and severe left neural foramen narrowing. L3-L4: Postoperative changes with a disc osteophyte complex and facet hypertrophy, resulting in mild bilateral neural foramen narrowing. L4-L5: Postoperative changes with a disc osteophyte complex and facet hypertrophy, resulting in moderate bilateral neural foramen narrowing which is similar to previous. L5-S1: Postoperative changes with a disc osteophyte complex and facet hypertrophy, resulting in mild narrowing of both subarticular recesses and moderate left and severe right neural foramen narrowing which is similar to previous. Sacrum and iliac wings: The visualized sacrum and iliac wings are within normal limits. The presacral soft tissues are normal in appearance. IMPRESSION: Extensive postoperative changes in the lower thoracic and lumbosacral spine. Degenerative changes with multilevel lumbar foraminal narrowing, no significant spinal canal narrowing or abnormal cord signal. Anatomic Thoracic/Lumbar Variant: None. L4-5 is considered the level of the iliac crest and assume there are 5 lumbar-type vertebrae. 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 Transcribe Date/Time: Mar 02 2025 3:54P Dictated by : KASSANDRA DIETRICH MD This examination was interpreted and the report reviewed and electronically signed by: KASSANDRA DIETRICH MD on Mar 02 2025 4:09PM EST [id number] [facility] THERAPY NTon 03-02-2025 THERAPY NT HNO ID: [id number] Author: MADELINE HOLLOWAY PT, DPT Service: Physical Therapy Author Type: Physical Therapist Type: Therapy (PT/OT/Speech/Resp) Filed: 03/02/2025 15:39 Note Text: PHYSICAL THERAPY MISSED VISIT SERVICE DATE: 03/02/2025 SERVICE TIME: 1539 ROOM: [place] [address] ([facility]) Patient not seen due to Test / Procedure. SIGNATURE: Madeline Holloway PT DPNarcisa PATIENT NAME: Tam Walsh DATE: March 02, 2025 TIME: 3:39 PM [facility] CONSULTon 03-01-2025 CONSULT HNO ID: [id number] Author: KRISTOFER BALDWIN MD Service: Orthopaedic Surgery Author Type: Physician Type: Consults Filed: 03/01/2025 14:27 Note Text: Orthopaedic Spine Surgery Attending Addendum I personally saw and evaluated the patient. I agree with the history, physical examination, assessment, and plan as documented in Larissa Nelson' note with the following additions/changes: 74 year old male with history as below presenting with worsening upper and lower extremity weakness. Patient with history of multiple thoracolumbar surgeries performed by Dr. Mccabe and subsequently by Dr. Porras. Patient reports chronic weakness in the lower extremities since that time of his last 2nd surgery (he ultimately underwent three surgeries) that has been progressively worsening over the past 1-2 years. Endorses dragging his feet to ambulate with the walker. On February 22 the patient sustained a ground level fall. He states he has been unable to ambulate or move his lower extremities since that time. Denies any new pain in the lower extremities. Additionally endorses some pain and numbness in the bilateral upper extremities. Denies incontinence. Patient also endorses significant dysphagia that has worsened over the past years. He is unable to lie flat due to risk of aspiration. Spine Inspection: Well-healed posterior midline thoracolumbar incisions. Palpation: No midline or paraspinal tenderness to palpation. No palpable step-offs. Sensation: Sensation intact to light touch in C5-T1 and L1-S1 dermatomes. Motor: Upper Extremities Right Left Deltoid (C5) 3 4 Biceps (C6) 4 4 Triceps (C7) 4 4 Sales And Marketing Intern (C8) 3 3 Interossei (T1) 4 4 Lower Extremities Right Left Psoas (L2) 1 2 Quadriceps (L3) 1 1 Dorsiflexion (L4) 0 0 EHL (L5) 0 0 Plantarflexion (S1) 0 0 Reflexes: Triceps, biceps, and brachioradialis reflexes 2+ bilaterally. Quadriceps and Achilles reflexes 2+ bilaterally. Special Tests: Nava's absent, Babinski down-going, clonus absent. Reviewed imaging including MRI of the cervical spine. Imaging demonstrates mild C4-5 central stenosis. Moderate bilateral C4-7 foraminal stenosis. No severe stenosis or cord compression. Radiology reports also reviewed. Prior x-rays of the lumbar spine (2020) reviewed. Imaging demonstrates T11-L4 PSF and L5-S1 PSF with interbodies L3-S1. Discontinuity of rods at L4-5 (appears to be separate constructs based on libertad ends). Cervical stenosis without cord compression does not explain severity of symptoms, specifically in the lower extremities. Given extensive thoracolumbar surgery and recent fall more concerning for thoracic adjacent segment disease or proximal junctional kyphosis. Recommend STAT MRI of thoracic and lumbar spine with sedation. Final recommendations pending imaging. Discussed with patient. Kristofer Baldwin MD Orthopaedic Spine Surgery Consultation requested by Carlton Dhillon DO. A summary of my findings and recommendations will be communicated back to the requesting physician via the shared electronic medical record. Please see Larissa Nelson' note for full details. Separate note entered to change note type. [facility] CONSULT PROGoaraceli 03-01-2025 CONSULT PROG HNO ID: [id number] Author: KRISTOFER BALDWIN MD Service: Orthopaedic Surgery Author Type: Physician Type: Consult Progress Note Filed: 03/01/2025 14:24 Note Text: Orthopaedic Spine Surgery Attending Addendum I personally saw and evaluated the patient. I agree with the history, physical examination, assessment, and plan as documented in Larissa Nelson' note with the following additions/changes: 74 year old male with history as below presenting with worsening upper and lower extremity weakness. Patient with history of multiple thoracolumbar surgeries performed by Dr. Mccabe and subsequently by Dr. Porras. Patient reports chronic weakness in the lower extremities since that time of his last 2nd surgery (he ultimately underwent three surgeries) that has been progressively worsening over the past 1-2 years. Endorses dragging his feet to ambulate with the walker. On February 22 the patient sustained a ground level fall. He states he has been unable to ambulate or move his lower extremities since that time. Denies any new pain in the lower extremities. Additionally endorses some pain and numbness in the bilateral upper extremities. Denies incontinence. Patient also endorses significant dysphagia that has worsened over the past years. He is unable to lie flat due to risk of aspiration. Spine Inspection: Well-healed posterior midline thoracolumbar incisions. Palpation: No midline or paraspinal tenderness to palpation. No palpable step-offs. Sensation: Sensation intact to light touch in C5-T1 and L1-S1 dermatomes. Motor: Upper Extremities Right Left Deltoid (C5) 3 4 Biceps (C6) 4 4 Triceps (C7) 4 4 Sales And Marketing Intern (C8) 3 3 Interossei (T1) 4 4 Lower Extremities Right Left Psoas (L2) 1 2 Quadriceps (L3) 1 1 Dorsiflexion (L4) 0 0 EHL (L5) 0 0 Plantarflexion (S1) 0 0 Reflexes: Triceps, biceps, and brachioradialis reflexes 2+ bilaterally. Quadriceps and Achilles reflexes 2+ bilaterally. Special Tests: Nava's absent, Babinski down-going, clonus absent. Reviewed imaging including MRI of the cervical spine. Imaging demonstrates mild C4-5 central stenosis. Moderate bilateral C4-7 foraminal stenosis. No severe stenosis or cord compression. Radiology reports also reviewed. Prior x-rays of the lumbar spine (2020) reviewed. Imaging demonstrates T11-L4 PSF and L5-S1 PSF with interbodies L3-S1. Discontinuity of rods at L4-5 (appears to be separate constructs based on libertad ends). Cervical stenosis without cord compression does not explain severity of symptoms, specifically in the lower extremities. Given extensive thoracolumbar surgery and recent fall more concerning for thoracic adjacent segment disease or proximal junctional kyphosis. Recommend STAT MRI of thoracic and lumbar spine with sedation. Final recommendations pending imaging. Discussed with patient. Kristofer Baldwin MD Orthopaedic Spine Surgery Consultation requested by Carlton Dhillon DO. A summary of my findings and recommendations will be communicated back to the requesting physician via the shared electronic medical record. Larissa Nelson, PROCESS SAFETY MANAGEMENT ENGINEER-[facility] Orthopaedic Surgery Consultation Note Reason for Consultation: Multilevel cervical spine degenerative changes, severe narrowing on the right at C4-5 Requesting Provider: Dr.Neha Alejo MD Date: March 01, 2025 Time: 12:05 PM History of Present Illness 74 year old male being evaluated today regarding severe narrowing on the right at C4-5. Pt states that he has been experiencing progressive weakness, numbness and tingling in bilateral arms, hands and fingers. Pt states that this has been progressively getting worse over the last few months. Pt states that if there is a surgery to correct this, that he is interested in it. States no heart conditions or diabetes. States that this has severely impacted his quality of life and if there is anything that can improve his condition, he is wanting that. History PAST MEDICAL HISTORY Diagnosis Date Amblyopia Ankle fracture 01/21/2021 left Lumbar stenosis Pseudophakia, both eyes Spondylosis with myelopathy, lumbar region PAST SURGICAL HISTORY Procedure Laterality Date BACK SURGERY HX 12/17/2015 L3-5 lami, T11-L3 fusion by Drs. Oscar Gauthier and Brenton Mccabe BACK SURGERY HX 09/2014 L3-5 decompression, fusion by Dr. Mccabe BACK SURGERY HX 02/22/2020 lumbar re-exploration, removal of hardware (pedicle screws at L5 AND cross-link between L4/L5), L4- S1 TLIF with PSF per Dr. Sanna Porras CATARACT EXTRACTION W/ INTRAOCULAR LENS IMPLANT HX Right 08/05/2017 Dr. Morejon CATARACT EXTRACTION W/ INTRAOCULAR LENS IMPLANT HX Left 08/12/2017 Dr. Morejon HAND SURGERY HX Left 1974 Depression Screening Never done Anxiety Screening Never done Hepatitis C Screening Never done Lipid Screening Never done Shingrix Vaccine(1 of 2) Never done RSV Vaccine(1 - Risk 60-74 years 1-dose series) Never done Covid-19 Vacc (more content not included)... [facility] THERAPY NTon 03-01-2025 THERAPY NT HNO ID: [id number] Author: MADELINE HOLLOWAY, ANGELA DPT Service: Physical Therapy Author Type: Physical Therapist Type: Therapy (PT/OT/Speech/Resp) Filed: 03/01/2025 14:53 Note Text: PHYSICAL THERAPY MISSED VISIT SERVICE DATE: 03/01/2025 SERVICE TIME: 1451 ROOM: [place] [address] Patient not seen due to Clinical Appropriateness (Per ortho spine note; pending stat MRI or T and L spine. Will await results and POC prior to initiating PT). SIGNATURE: Madeline Holloway PT DPNarcisa PATIENT NAME: Tam Cervantes Eclem DATE: March 01, 2025 TIME: 2:53 PM [facility] THERAPY NT HNO ID: [id number] Author: CHINA MOORE, OTR/L Service: Occupational Therapy Author Type: Occupational Therapist Type: Therapy (PT/OT/Speech/Resp) Filed: 03/01/2025 14:42 Note Text: OCCUPATIONAL THERAPY MISSED VISIT SERVICE DATE: 03/01/2025 SERVICE TIME: 1440 ROOM: [place] [address] Patient not seen due to Clinical Appropriateness (Pt pending further imaging of spine to determine POC per nsgy note. Will hold at this time and re-attempt OT evaluation as appropriate.). SIGNATURE: China Moore OTR/L PATIENT NAME: Tam Cervantes Eclem DATE: March 01, 2025 TIME: 2:42 PM [facility] ANES POSTPROC EVALon 025 ANES POSTPROC EVAL HNO ID: [id number] Author: SHA REDMOND MD Service: Anesthesiology Author Type: Anesthesiologist Type: Anesthesia Postprocedure Evaluation Filed: 02/28/2025 13:36 Note Text: POST ANESTHESIA EVALUATION NOTE : 1950 Procedure Summary Date: 02/28/25 Room / Location: MR MRI / MR IR Anesthesia Start: 1220 Anesthesia Stop: 1325 Procedure: MRI ANESTHESIA CERVICAL WO IVCON Diagnosis: Spinal stenosis in cervical region (Spinal stenosis in cervical region [M48.02]) Surgeons: Haydee De Leon MD Responsible Provider: Tam Ragsdale DO Anesthesia Type: general ASA Status: 2 Anesthesia Type: general Airway Type: LMA Last Vitals Vitals Value Taken Time BP 126/59 02/28/25 1330 Temp 36.8 ?C (98.2 ?F) 02/28/25 1316 Pulse 83 02/28/25 1334 Resp 17 02/28/25 1330 SpO2 96 % 02/28/25 1334 Vitals shown include unfiled device data. Post Anesthesia Patient Status Patient Evaluation: PACU. Anticipated Disposition: inpatient floor planned admission. Neurological Status: aware and responsive. Pulmonary Status: breathing comfortably on room air Airway Control: returned to baseline unsupported. Cardiovascular Status: stable. Pain Management: clinically adequate Postoperative Hydration: acceptable. Intraoperative Events: no significant anesthesia events Post Operative Nausea/Vomiting Status: no significant post operative nausea or vomiting Recommendation: further care per PACU/ICU/floor team. Anesthesia Observations No Documentation SIGNATURE: Sha Redmond MD PATIENT NAME: Tam Cervantes Eclem DATE: February 28, 2025 TIME: 1:36 PM CSN: [id number] [facility] ANES PRE-OPon 02-28-2025 ANES PRE-OP HNO ID: [id number] Author: TAM RAGSDALE DO Service: Anesthesiology Author Type: Anesthesiologist Type: Anesthesia Preprocedure Evaluation Filed: 02/28/2025 12:12 Note Text: ANESTHESIOLOGY DAY OF SURGERY NOTE : 1950 Procedure Information Date/Time: 02/28/25 1200 Procedure: MRI ANESTHESIA CERVICAL WO IVC - DR LEUNG, 1200 SCAN TIME BS 02/27/25 Location: MR MRI / MR IR Surgeons: Haydee De Leon MD Estimated body mass index is 28.69 kg/m? as calculated from the following: Height as of this encounter: 180.3 cm (5' 11). Weight as of this encounter: 93.3 kg (205 lb 11 oz). Most recent hematocrit and potassium results: Hematocrit 39.3 02/27/2025 Potassium 4.0 02/26/2025 Relevant Problems GI (+) Gastro-esophageal reflux disease without esophagitis Patient is a 74 year old male with a past medical history of GERD, cervical spinal stenosis presenting for MRI of cervical spine with general anesthesia I - PHYSICAL EVALUATION AIRWAY Patient intubated: No. Tracheostomy tube not present Mallampati: II. TM distance: >3 FB. Neck ROM: full ROM without neurological symptoms. Mouth opening: adequate. Short neck: no. Thick neck: no DENTAL Dental findings: teeth intact. Additional exam findings: no II - ANESTHESIA PLAN ASA Score: 2 Anesthetic Plan: general Airway type: LMA The patient is not a current smoker. NPO Status: adequate Beta Johnnie Monitoring Plan Monitoring plan: Standard ASA. Post Procedure Analgesic Plan Postoperative analgesic plan: parenteral or oral opioids and multimodal analgesia. Informed Consent Anesthetic risks, benefits, alternatives, personnel and consent discussed: yes. Patient / Responsible Constitution Party agrees to proceed: yes Patient / Surrogate agrees to blood products: yes DNR status not reviewed with patient and/or family prior to surgery. Significant changes in the patient condition since the History and Physical, not otherwise documented in primary service progress note: no. Potential Anesthesia issues that may suggest increased risk of complications or contraindication to planned procedure: none. Discussed the possibility of lip / dental damage: yes Vitals Value Taken Time BP 161/74 02/28/25 1149 Pulse 85 02/28/25 1206 Resp 20 02/28/25 1149 Temp 37.9 ?C (100.2 ?F) 02/28/25 1149 SpO2 96 % 02/28/25 1206 Vitals shown include unfiled device data. Facility-Administered Medications as of 02/28/2025 Medication Dose Route Frequency oxyCODONE IR 5 mg tab(s) (ROXICODONE) 5 mg ORAL q 8 H PRN NaCl 0.9% iv flush bag 20 mL INTRAVENOUS PRN aspirin 81 mg chewable tab(s) 81 mg ORAL DAILY pantoprazole DR 40 mg tab(s) (PROTONIX) 40 mg ORAL DAILY polyethylene glycol 3350 17 g packet 17 g ORAL DAILY PRN acetaminophen 500 mg tab(s) (TYLENOL) 500 mg ORAL q 8 H PRN diphenhydrAMINE 25 mg capsule (BENADRYL) 25 mg ORAL AT BEDTIME PRN levothyroxine 25 mcg tab(s) (SYNTHROID) 25 mcg ORAL DAILY (6 AM) heparin 5,000 Units injection 5,000 Units SUBCUTANEOUS q 12 H Outpatient Medications as of 02/28/2025 Medication Sig levothyroxine (SYNTHROID) 25 mcg tablet aspirin 325 mg cap Take 1 capsule by mouth once daily. acetaminophen (TYLENOL EXTRA STRENGTH) 500 mg tablet Take 500 mg by mouth every 8 hours as needed. multivit-min/FA/lycopen/ lutein (CENTRUM SILVER MEN ORAL) Take by mouth. polyethylene glycol 3350 (MIRALAX, GLYCOLAX) 17 gram packet Take 1 Packet by mouth once daily as needed. diphenhydrAMINE (ZZZQUIL) 25 mg capsule Take 25 mg by mouth at bedtime as needed. VITAMIN B COMPLEX (B-COMPLEX ORAL) Take by mouth once daily. pravastatin (PRAVACHOL) 10 mg tablet triamterene-hydroCHLOROt hiazide (MAXZIDE-25) 37.5-25 mg per tablet Take 1 tablet by mouth once daily. ibuprofen (ADVIL) 200 mg tablet Take 200 mg by mouth every 6 hours as needed. aspirin (ASPIR-81 ORAL) Take by mouth. fluticasone (FLONASE ALLERGY RELIEF) 50 mcg/actuation nasal spray Use 1 [place] in each nostril once daily. (Patient not taking: Reported on 06/03/2021 ) PEG 400-propylene glycol (SYSTANE ULTRA) 0.4-0.3 % ophthalmic solution Use in both eyes as needed. (Patient not taking: Reported on 06/03/2021 ) pantoprazole DR (PROTONIX) 40 mg tablet Take 40 mg by mouth once daily. Hemoglobin Date Value 02/27/2025 13.4 g/dL 03/04/2020 13.6 G/DL Hematocrit (%) Date Value 02/27/2025 39.3 03/04/2020 40.8 WBC Date Value 02/27/2025 9.85 k/uL 03/04/2020 7.7 K/CUMM Platelet Count Date Value 02/27/2025 242 k/uL 03/04/2020 349 K/CU MM CMP: Glucose 90 02/27/2025 BUN 14 02/27/2025 Creatinine 0.34 02/27/2025 Sodium 136 02/27/2025 Potassium 4.0 02/26/2025 Chloride 100 02/27/2025 CO2 25 02/27/2025 Protein, Total 6.1 02/27/2025 Albumin 3.0 02/27/2025 Calcium 8.9 02/27/2025 Alkaline Phosphatase 147 02/27/2025 Bilirubin, Total 1.3 02/27/2025 AST 55 02/26/2025 ALT 48 02/27/2025 INR Date Value Ref Range Status 02/15/2020 0.92 0.90 - 1.30 Final Comment: Vi (more content not included)... Normal [facility] MRI CERVICAL SPINE WO IVCONo n 02-28-2025 MRI CERVICAL SPINE WO IVCON * * *Final Report* * * DATE OF EXAM: Feb 28 2025 1:01PM [facility] 0297 - MRI CERVICAL SPINE WO IVCON / PROCEDURE REASON: Spinal stenosis, cervical * * * * Physician Interpretation * * * * EXAMINATION: MRI CERVICAL SPINE WO IVCON CLINICAL HISTORY: Spinal stenosis, cervical Generalized weakness, increasing. Multiple falls. TECHNIQUE: Routine cervical spine MR protocol without gadolinium. MQ: [id number] COMPARISON: None. RESULT: Counting reference: Craniocervical junction. Anatomic Variants: None. Localizer images: No additional findings. Alignment: Slight retrolisthesis of C4 on C5 and C5 on C6. Craniocervical junction: Focal T2/STIR hyperintense and T1 hypointense area of signal alteration in the right aspect of the odontoid process, most likely reflecting degenerative cystic change. Additional smaller cystic focus also present slightly more superiorly on the right. Mild surrounding edema and the odontoid process, favored to be degenerative/mechanical. No clear linear T1 hypointensity to suggest fracture line. Trace effusions at the right C1-2 lateral mass articulation and right atlantooccipital articulation, likely degenerative. Craniocervical junction alignment is otherwise maintained. Cord: The visualized cord is within normal limits of signal intensity and morphology. Bone marrow signal/fracture: See above regarding C2. Otherwise, No focal aggressive marrow lesion or confluent marrow signal replacement. No evidence of prior fracture. Cervical soft tissues: The paraspinal soft tissues are within normal limits. Airway device noted in place. Canal and foramina: Following degrees of canal and foraminal narrowing related to disc osteophyte complexes, and facet and uncovertebral arthropathy, respectively, unless otherwise specified. C2-C3: Canal and foramina are patent. C3-C4: Shallow disc bulge with slight ventral cord contact otherwise overall minimal left eccentric canal narrowing. Moderate left foraminal narrowing. Right foramen is patent. C4-C5: Mild canal narrowing. Abutment of the ventral cord. Severe right and moderate left foraminal narrowing. C5-C6: Right eccentric disc osteophyte complex with mild canal narrowing and abutment of the ventral cord. Moderate bilateral foraminal narrowing. C6-C7: Mild canal narrowing. Abutment of the ventral cord. Moderate bilateral foraminal narrowing. C7-T1: Canal and foramina are patent. Visualized upper thoracic canal and foramina are patent to the level of T5-6. 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 IMPRESSION: Multilevel cervical spine degenerative changes as detailed, without high-grade canal narrowing. Varying degrees of foraminal narrowing as detailed, noting severe foraminal narrowing on the right at C4-5. Focal area of signal alteration in the right aspect of the odontoid process, most likely reflecting degenerative cystic change. Alternate lesion not excluded, although felt less likely. Mild surrounding marrow edema, favored to be degenerative/mechanical. Anatomic Variant: None. Assume 7 cervical vertebrae with counting from the craniocervical junction. 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 Author Type: Occupational Therapist Type: Therapy (PT/OT/Speech/Resp) Filed: 02/28/2025 08:08 Note Text: OCCUPATIONAL THERAPY MISSED VISIT SERVICE DATE: 02/28/2025 SERVICE TIME: 806 ROOM: [id number] Patient not seen due to Clinical Appropriateness (Awaiting cervical spine MRI. Will continue to follow as able). SIGNATURE: ABA Luo/Raymnod PATIENT NAME: Tam Walsh DATE: February 28, 2025 TIME: 8:08 AM [facility] THERAPY NT HNO ID: [id number] Author: VIRI FERNANDEZ, PT, DPT Service: Physical Therapy Author Type: Physical Therapist Type: Therapy (PT/OT/Speech/Resp) Filed: 02/28/2025 08:08 Note Text: PHYSICAL THERAPY MISSED VISIT SERVICE DATE: 02/28/2025 SERVICE TIME: 0808 ROOM: [id number] Patient not seen due to Clinical Appropriateness (Pt pending MRI of spine. Will continue to follow). SIGNATURE: Viri Fernandez PT, DPT PATIENT NAME: Tam Cervantes Eclem DATE: February 28, 2025 TIME: 8:08 AM Normal [facility] CBC panel Auto (Bld)on 02-27 Erythrocyte distribution width (RBC) [Ratio] 13.4 % Normal 11.5-15.0 [facility] Comment on above: Order Comment: Speci men Type: BLOOD SPECIMEN Ordering Facility: [facility] Address: [id number] [place] [address] Performed By: #### 5 8410-2 #### [facility] CLIA [id number] [address] [place] [address] [place] Hematocrit (Bld) [Volume fraction] 39.3 % Normal 39.0-51.0 [facility] Comment on above: Order Comment: Speci men Type: BLOOD SPECIMEN Ordering Facility: [facility] Address: [address] [place] [address] Performed By: #### 5 8410-2 #### [facility] CLIA [id number] [address] [place] [address] [place] Hemoglobin (Bld) [Mass/Vol] 13.4 g/dL Normal 13.0-17.0 [facility] Comment on above: Order Comment: Speci men Type: BLOOD SPECIMEN Ordering Facility: [facility] Address: [address] [place] [address] Performed By: #### 5 8410-2 #### [facility] CLIA [id number] [address] [place] [address] [place] MCH (RBC) [Entitic mass] 32.5 pg Normal 26.0-34.0 [facility] Comment on above: Order Comment: Speci men Type: BLOOD SPECIMEN Ordering Facility: [facility] Address: [address] [place] [address] Performed By: #### 5 8410-2 #### [facility] CLIA [id number] [address] [place] [address] [place] MCHC (RBC) [Mass/Vol] 34.1 g/dL Normal 30.5-36.0 [facility] Comment on above: Order Comment: Speci men Type: BLOOD SPECIMEN Ordering Facility: [facility] Address: [address] [place] [address] Performed By: #### 5 8410-2 #### [facility] CLIA [id number] [address] [place] [address] [place] MCV (RBC) [Entitic vol] 95.4 fL Normal 80.0-100.0 [facility] Comment on above: Order Comment: Speci men Type: BLOOD SPECIMEN Ordering Facility: [facility] Address: [address] [place] [address] Performed By: #### 5 8410-2 #### [facility] CLIA [id number] [address] [place] [address] [place] Nucleated RBC (Bld) [#/Vol] 10*3/uL Normal <0.01 [facility] Comment on above: Order Comment: Speci men Type: BLOOD SPECIMEN Ordering Facility: [facility] Address: [address] [place] [address] Performed By: #### 5 8410-2 #### [facility] CLIA [id number] [address] [place] [address] [place] Platelet mean volume (Bld) [Entitic vol] 9.7 fL Normal 9.0-12.7 [facility] Comment on above: Order Comment: Speci men Type: BLOOD SPECIMEN Ordering Facility: [facility] Address: [address] [place] [address] Performed By: #### 5 8410-2 #### [facility] CLIA [id number] [address] [place] [address] [place] Platelets (Bld) [#/Vol] 242 10*3/uL Normal 150-400 [facility] Comment on above: Order Comment: Speci men Type: BLOOD SPECIMEN Ordering Facility: [facility] Address: [address] [place] [address] Performed By: #### 5 8410-2 #### [facility] CLIA [id number] [address] [place], [place] [id number] [facility] RBC (Bld) [#/Vol] 4.12 10*6/uL Low 4.20-6.00 [facility] Comment on above: Order Comment: Speci men Type: BLOOD SPECIMEN Ordering Facility: [facility] Address: [address] [place] [address] Performed By: #### 5 8410-2 #### [facility] CLIA [id number] [address] [place] [address] WBC (Bld) [#/Vol] 9.85 10*3/uL Normal 3.70-11.00 [facility] Comment on above: Order Comment: Speci men Type: BLOOD SPECIMEN Ordering Facility: [facility] Address: [address] [place] [address] Performed By: #### 5 8410-2 #### [facility] CLIA [id number] [address] [place], [place] [address] [place] [facility] Comprehensive metabolic 2000 panelon 02-27-2025 Albumin [Mass/Vol] 3.0 g/dL Low 3.2-5.0 [facility] Comment on above: Order Comment: Speci men Type: BLOOD SPECIMEN Ordering Facility: [facility] Address: [address] [place], [place] [address] Performed By: #### 2 4323-8, 26270-0 #### [facility] CLIA [id number] [address] [place], [place] [address] [place] ALP [Catalytic activity/Vol] 147 U/L High 45-117 [facility] Comment on above: Order Comment: Speci men Type: BLOOD SPECIMEN Ordering Facility: [facility] Address: [address] [place] [address] Performed By: #### 2 4323-8 #### [facility] CLIA [id number] [address] [place] [address] [place] ALT [Catalytic activity/Vol] 48 U/L Normal 13-61 [facility] Comment on above: Order Comment: Donavon medina Type: BLOOD SPECIMEN Ordering Facility: [facility] Address: [address] [place] [address] Result Comment: Resu lts may be falsely depressed after the administration of Sulfasalazine and/or Sulfapyridine. Performed By: #### 2 432-8, #### [facility] CLIA [id number] [address] [place] [address] [place] Anion gap [Moles/Vol] 11 mmol/L Normal 5-16 [facility] Comment on above: Order Comment: Donavon medina Type: BLOOD SPECIMEN Ordering Facility: [facility] Address: [address] [place] [address] Performed By: #### 2 4328, #### [facility] CLIA [id number] [address] [place] [address] [place] AST [Catalytic activity/Vol] Normal [facility] Comment on above: Order Comment: Donavon medina Type: BLOOD SPECIMEN Ordering Facility: [facility] Address: [address] [place] [address] Result Comment: Unab le to assay due to interference from hemolysis. Suggest reorder as clinically indicated. Results may be falsely depressed after the administration of Sulfasalazine and/or Sulfapyridine. Performed By: #### 2 4323-8, #### [facility] CLIA [id number] [address] [place] [address] [place] Bilirubin [Mass/Vol] 1.3 mg/dL High 0.2-1.0 [facility] Comment on above: Order Comment: Donavon medina Type: BLOOD SPECIMEN Ordering Facility: [facility] Address: [address] [place] [address] Performed By: #### 2 4323-8, #### [facility] CLIA [id number] [address] [place], [place] [address] [place] Calcium [Mass/Vol] 8.9 mg/dL Normal 8.5-10.5 [facility] Comment on above: Order Comment: Speci men Type: BLOOD SPECIMEN Ordering Facility: [facility] Address: [address] [place] [address] Performed By: #### 2 4323-8, #### [facility] CLIA [id number] [address] [place] [address] [place] Chloride [Moles/Vol] 100 mmol/L Normal 98-107 [facility] Comment on above: Order Comment: Speci men Type: BLOOD SPECIMEN Ordering Facility: [facility] Address: [address] [place] [address] Performed By: #### 2 4323-8, #### [facility] CLIA [id number] [address] [place] [address] [place] CO2 [Moles/Vol] 25 mmol/L Normal 21-32 [facility] Comment on above: Order Comment: Speci men Type: BLOOD SPECIMEN Ordering Facility: [facility] Address: [address] [place] [address] Performed By: #### 2 4323-8, #### [facility] CLIA [id number] [address] [place], [place] [address] [place] Creatinine [Mass/Vol] 0.34 mg/dL Low 0.50-1.40 [facility] Comment on above: Order Comment: Speci men Type: BLOOD SPECIMEN Ordering Facility: [facility] Address: [address] [place] [address] Result Comment: Seema ents receiving either N-Acetylcysteine (NAC) or Metamizole prior to venipuncture, may have falsely depressed results. Performed By: #### 2 4323-8, #### [facility] CLIA [id number] [address] [place] [address] [place] Creatinine and Glomerular filtration rate.predicted panel (S/P/Bld) 120 mL/min/1.73m??? Normal >=60 [facility] Comment on above: Order Comment: Donavon medina Type: BLOOD SPECIMEN Ordering Facility: [facility] Address: [address] [place] [address] Result Comment: Verito mated Glomerular Filtration Rate (eGFR) is calculated using the 2020 CKD-EPI creatinine equation. This equation utilizes serum creatinine, sex, and age as parameters. The creatinine assay has traceable calibration to isotope dilution-mass spectrometry. Refer to KDIGO guidelines for clinical interpretation. In patients with unstable renal function, e.g. those with acute kidney injury, the eGFR may not accurately reflect actual GFR. Performed By: #### 2 4323-8, 46340-1 #### [facility] CLIA [id number] [address] [place], [place] [address] [place] Glucose [Mass/Vol] 90 mg/dL Normal 70-100 [facility] Comment on above: Order Comment: Donavon medina Type: BLOOD SPECIMEN Ordering Facility: [facility] Address: [address] [place] [address] Result Comment: The [place] [employer] (ADA) provides guidance for cutoff values for fasting glucose and random glucose. The ADA defines fasting as no caloric intake for at least 8 hours. Fasting plasma glucose results between 100 to 125 mg/dL indicate increased risk for diabetes (prediabetes). Fasting plasma glucose results greater than or equal to 126 mg/dL meet the criteria for diagnosis of diabetes. In the absence of unequivocal hyperglycemia, results should be confirmed by repeat testing. In a patient with classic symptoms of hyperglycemia or hyperglycemic crisis, random plasma glucose results greater than or equal to 200 mg/dL meet the criteria for diagnosis of diabetes. Reference: Standards of Medical Care in Diabetes 2016, [place] [employer]. Diabetes Care. 2016.39(Suppl 1). Results may be falsely elevated after the administration of Sulfapyridine. Results may be falsely depressed after the administration of Sulfasalazine. Performed By: #### 2 4323-8, 13129-8 #### [facility] CLIA [id number] [address] [place], [place] [address] [place] Potassium [Moles/Vol] Normal [facility] Comment on above: Order Comment: Speci men Type: BLOOD SPECIMEN Ordering Facility: [facility] Address: [address] [place] [address] Result Comment: Unab le to assay due to interference from hemolysis. Suggest reorder as clinically indicated. Performed By: #### 2 4323-8, #### [facility] CLIA [id number] [address] [place] [address] [place] Protein [Mass/Vol] 6.1 g/dL Normal 6.0-8.5 [facility] Comment on above: Order Comment: Speci men Type: BLOOD SPECIMEN Ordering Facility: [facility] Address: [address] [place] [address] Performed By: #### 2 4323-8, #### [facility] CLIA [id number] [address] [place] [address] [place] Sodium [Moles/Vol] 136 mmol/L Normal 136-145 [facility] Comment on above: Order Comment: Speci men Type: BLOOD SPECIMEN Ordering Facility: [facility] Address: [address] [place] [address] Performed By: #### 2 4323-8, #### [facility] CLIA [id number] [address] [place] [address] [place] Urea nitrogen [Mass/Vol] 14 mg/dL Normal 7-26 [facility] Comment on above: Order Comment: Speci men Type: BLOOD SPECIMEN Ordering Facility: [facility] Address: [address] [place] [address] Performed By: #### 2 4323-8, #### [facility] CLIA [id number] [address] [place], [place] [address] [place] Magnesium SerPl-mCncon 02-27 Magnesium [Mass/Vol] 1.9 mg/dL Normal 1.6-2.6 [facility] Comment on above: Order Comment: Speci men Type: BLOOD SPECIMEN Ordering Facility: [facility] Address: [address] [place], [place] [address] Performed By: #### 2 4323-8, 82770-1 #### [facility] CLIA [id number] [address] [place] [address] [place] .GFRon 02-26-2025 Estimated Glomerular Filtration Rate 116 ml/min/1.73sqm Normal [facility] Comment on above: Result Comment: Stages of Chronic Kidney Disease (CKD) Stage Description eGFR(ml/min/1.73 sq.m.) CKD 1 Normal kidney function or >=90 normal kindney function with possible kidney damage (ex. Proteinuria) CKD 2 Kidney damage with mild loss 60-89 of kidney function CKD 3a Mild to moderate loss of kidney 45-59 function CKD 3b Moderate to severe loss of 30-44 of kindey function CKD 4 Severe loss of kidney function 15-29 CKD 5 Kidney failure <15 Note: (go live 2024) the eGFR calculation was updated to the 2020 CKD-EPI creatinine equation without a race factor to calculate the eGFR results. Performed By: #### M G, GFR, BMP #### [address] [address] BMPon 02-26-2025 BUN/Creatinine Ratio 63 ratio High 7-27 [facility] Comment on above: Performed By: #### M G, GFR, BMP #### [address] [address] Calcium [Mass/Vol] 8.8 mg/dL Normal 8.4-10.2 [facility] Comment on above: Performed By: #### M G, GFR, BMP #### [address] [address] Chloride [Moles/Vol] 103 mmol/L Normal 98-107 [facility] Comment on above: Performed By: #### M G, GFR, BMP #### [address] [address] CO2 [Moles/Vol] 28 mmol/L Normal 23-31 [facility] Comment on above: Performed By: #### M G, GFR, BMP #### [address] [place] [address] Creatinine [Mass/Vol] 0.38 mg/dL Low 0.67-1.17 [facility] Comment on above: Performed By: #### M G, GFR, BMP #### [address] [address] Electrolyte Balance 7.0 mEq/L Normal 4.0-15.0 [facility] Comment on above: Performed By: #### M Billie, GFR, BMP #### [place] [address] [address] Glucose [Mass/Vol] 97 mg/dL Normal 83-110 [facility] Comment on above: Performed By: #### M Billie, GFR, BMP #### [place] [address] [address] Potassium [Moles/Vol] 4.0 mmol/L Normal 3.5-5.1 [facility] Comment on above: Performed By: #### Lenny Wise, GFR, BMP #### [address] [address] Sodium [Moles/Vol] 138 mmol/L Normal 136-145 [facility] Comment on above: Performed By: #### M Billie, GFR, BMP #### [place] [address] [address] Urea nitrogen [Mass/Vol] 24 mg/dL High 7-18 [facility] Comment on above: Performed By: #### M G, GFR, BMP #### [place] [address] [address] CBC panel Auto (Bld)on 02-26 Erythrocyte distribution width (RBC) [Ratio] 13.3 % Normal 11.5-15.0 [facility] Comment on above: Order Comment: Speci men Type: BLOOD SPECIMEN Ordering Facility: [facility] Address: [address] [place] [address] Performed By: #### 5 8410-2 #### [facility] CLIA [id number] [address] [place] [address] [place] Hematocrit (Bld) [Volume fraction] 41.1 % Normal 39.0-51.0 [facility] Comment on above: Order Comment: Speci men Type: BLOOD SPECIMEN Ordering Facility: [facility] Address: [address] [place] [address] Performed By: #### 5 8410-2 #### [facility] CLIA [id number] [address] [place] [address] [place] Hemoglobin (Bld) [Mass/Vol] 14.1 g/dL Normal 13.0-17.0 [facility] Comment on above: Order Comment: Speci men Type: BLOOD SPECIMEN Ordering Facility: [facility] Address: [address] [place] [address] Performed By: #### 5 8410-2 #### [facility] CLIA [id number] [address] [place] [address] [place] MCH (RBC) [Entitic mass] 32.3 pg Normal 26.0-34.0 [facility] Comment on above: Order Comment: Speci men Type: BLOOD SPECIMEN Ordering Facility: [facility] Address: [address] [place] [address] Performed By: #### 5 8410-2 #### [facility] CLIA [id number] [address] [place] [address] [place] MCHC (RBC) [Mass/Vol] 34.3 g/dL Normal 30.5-36.0 [facility] Comment on above: Order Comment: Speci men Type: BLOOD SPECIMEN Ordering Facility: [facility] Address: [address] [place] [address] Performed By: #### 5 8410-2 #### [facility] CLIA [id number] [address] [place] [address] [place] MCV (RBC) [Entitic vol] 94.1 fL Normal 80.0-100.0 [facility] Comment on above: Order Comment: Speci men Type: BLOOD SPECIMEN Ordering Facility: [facility] Address: [address] [place] [address] Performed By: #### 5 8410-2 #### [facility] CLIA [id number] [address] [place] [address] [place] Nucleated RBC (Bld) [#/Vol] 10*3/uL Normal <0.01 [facility] Comment on above: Order Comment: Speci men Type: BLOOD SPECIMEN Ordering Facility: [facility] Address: [address] [place] [address] Performed By: #### 5 8410-2 #### [facility] CLIA [id number] [address] [place] [address] [place] Platelet mean volume (Bld) [Entitic vol] 9.7 fL Normal 9.0-12.7 [facility] Comment on above: Order Comment: Speci men Type: BLOOD SPECIMEN Ordering Facility: [facility] Address: [address] [place] [address] Performed By: #### 5 8410-2 #### [facility] CLIA [id number] [address] [place] [address] [place] Platelets (Bld) [#/Vol] 244 10*3/uL Normal 150-400 [facility] Comment on above: Order Comment: Speci men Type: BLOOD SPECIMEN Ordering Facility: [facility] Address: [address] [place] [address] Performed By: #### 5 8410-2 #### [facility] CLIA [id number] [address] [place] [address] [place] RBC (Bld) [#/Vol] 4.37 10*6/uL Normal 4.20-6.00 [facility] Comment on above: Order Comment: Speci men Type: BLOOD SPECIMEN Ordering Facility: [facility] Address: [address] [place] [address] Performed By: #### 5 8410-2 #### [facility] CLIA [id number] [address] [place], [place] [id number] [place] WBC (Bld) [#/Vol] 8.52 10*3/uL Normal 3.70-11.00 [facility] Comment on above: Order Comment: Speci men Type: BLOOD SPECIMEN Ordering Facility: [facility] Address: [address] [place] [address] Performed By: #### 5 8410-2 #### [facility] CLIA [id number] [address] [place] [address] [facility] Comprehensive metabolic 2000 panelon 02-26-2025 Albumin [Mass/Vol] 3.2 g/dL Normal 3.2-5.0 [facility] Comment on above: Order Comment: Speci men Type: BLOOD SPECIMEN Ordering Facility: [facility] Address: [address] [place] [address] Performed By: #### 2 4323-8, 69601-2 #### [facility] CLIA [id number] [address] [place] [address] [place] ALP [Catalytic activity/Vol] 151 U/L High 45-117 [facility] Comment on above: Order Comment: Speci men Type: BLOOD SPECIMEN Ordering Facility: [facility] Address: [address] [place] [address] Performed By: #### 2 4323-8, 60299-8 #### [facility] CLIA [id number] [address] [place] [address] [place] ALT [Catalytic activity/Vol] 53 U/L Normal 13-61 [facility] Comment on above: Order Comment: Speci men Type: BLOOD SPECIMEN Ordering Facility: [facility] Address: [address] [place] [address] Result Comment: Resu lts may be falsely depressed after the administration of Sulfasalazine and/or Sulfapyridine. Performed By: #### 2 4323-8, 07052-0 #### [facility] CLIA [id number] [address] [place] [address] [place] Anion gap [Moles/Vol] 8 mmol/L Normal 5-16 [facility] Comment on above: Order Comment: Speci men Type: BLOOD SPECIMEN Ordering Facility: [facility] Address: [address] [place], [place] [address] Performed By: #### 2 4323-8, #### [facility] CLIA [id number] [address] [place], [place] [address] [place] AST [Catalytic activity/Vol] 55 U/L High 8-34 [facility] Comment on above: Order Comment: Speci men Type: BLOOD SPECIMEN Ordering Facility: [facility] Address: [address] [place] [address] Result Comment: Resu lts may be falsely depressed after the administration of Sulfasalazine and/or Sulfapyridine. Performed By: #### 2 4323-8, #### [facility] CLIA [id number] [address] [place] [address] [place] Bilirubin [Mass/Vol] 1.3 mg/dL High 0.2-1.0 [facility] Comment on above: Order Comment: Speci men Type: BLOOD SPECIMEN Ordering Facility: [facility] Address: [address] [place] [address] Performed By: #### 2 4323-8, #### [facility] CLIA [id number] [address] [place] [address] [place] Calcium [Mass/Vol] 8.7 mg/dL Normal 8.5-10.5 [facility] Comment on above: Order Comment: Speci men Type: BLOOD SPECIMEN Ordering Facility: [facility] Address: [address] [place] [address] Performed By: #### 2 4323-8, #### [facility] CLIA [id number] [address] [place], [place] [id number] [place] Chloride [Moles/Vol] 103 mmol/L Normal 98-107 [facility] Comment on above: Order Comment: Speci men Type: BLOOD SPECIMEN Ordering Facility: [facility] Address: [address] [place] [address] Performed By: #### 2 4323-8, #### [facility] CLIA [id number] [address] [place] [address] [place] CO2 [Moles/Vol] 25 mmol/L Normal 21-32 [facility] Comment on above: Order Comment: Speci men Type: BLOOD SPECIMEN Ordering Facility: [facility] Address: [address] [place] [address] Performed By: #### 2 4323-8, 40442-9 #### [facility] CLIA [id number] [address] [place] [address] [place] Creatinine [Mass/Vol] 0.33 mg/dL Low 0.50-1.40 [facility] Comment on above: Order Comment: Speci men Type: BLOOD SPECIMEN Ordering Facility: [facility] Address: [address] [place] [address] Result Comment: Seema ents receiving either N-Acetylcysteine (NAC) or Metamizole prior to venipuncture, may have falsely depressed results. Performed By: #### 2 4323-8, #### [facility] CLIA [id number] [address] [place] [address] [place] [facility] Creatinine and Glomerular filtration rate.predicted panel (S/P/Bld) 121 mL/min/1.73m??? Normal >=60 [facility] Comment on above: Order Comment: Speci men Type: BLOOD SPECIMEN Ordering Facility: [facility] Address: [address] [place] [address] Result Comment: Verito mated Glomerular Filtration Rate (eGFR) is calculated using the 2020 CKD-EPI creatinine equation. This equation utilizes serum creatinine, sex, and age as parameters. The creatinine assay has traceable calibration to isotope dilution-mass spectrometry. Refer to KDIGO guidelines for clinical interpretation. In patients with unstable renal function, e.g. those with acute kidney injury, the eGFR may not accurately reflect actual GFR. Performed By: #### 2 4323-8, 55525-9 #### [facility] CLIA [id number] [address] [place], [place] [id number] [place] Glucose [Mass/Vol] 93 mg/dL Normal 70-100 [facility] Comment on above: Order Comment: Speci men Type: BLOOD SPECIMEN Ordering Facility: [facility] Address: [address] [place], [place] [id number] Result Comment: The [place] Diabetes Association (ADA) provides guidance for cutoff values for fasting glucose and random glucose. The ADA defines fasting as no caloric intake for at least 8 hours. Fasting plasma glucose results between 100 to 125 mg/dL indicate increased risk for diabetes (prediabetes). Fasting plasma glucose results greater than or equal to 126 mg/dL meet the criteria for diagnosis of diabetes. In the absence of unequivocal hyperglycemia, results should be confirmed by repeat testing. In a patient with classic symptoms of hyperglycemia or hyperglycemic crisis, random plasma glucose results greater than or equal to 200 mg/dL meet the criteria for diagnosis of diabetes. Reference: Standards of Medical Care in Diabetes 2016, [place] Diabetes Association. Diabetes Care. 2016.39(Suppl 1). Results may be falsely elevated after the administration of Sulfapyridine. Results may be falsely depressed after the administration of Sulfasalazine. Performed By: #### 2 4323-8, #### [facility] CLIA [id number] [address] [place] [address] [place] Potassium [Moles/Vol] 4.0 mmol/L Normal 3.5-5.1 [facility] Comment on above: Order Comment: Donavon medina Type: BLOOD SPECIMEN Ordering Facility: [facility] Address: [address] [place] [address] Performed By: #### 2 4323-8, #### [facility] CLIA [id number] [address] [place] [address] [place] Protein [Mass/Vol] 6.6 g/dL Normal 6.0-8.5 [facility] Comment on above: Order Comment: Donavon medina Type: BLOOD SPECIMEN Ordering Facility: [facility] Address: [address] [place] [address] Performed By: #### 2 4323-8, #### [facility] CLIA [id number] [address] [place], [place] [id number] [place] Sodium [Moles/Vol] 136 mmol/L Normal 136-145 [facility] Comment on above: Order Comment: Speci men Type: BLOOD SPECIMEN Ordering Facility: [facility] Address: [address] [place] [address] Performed By: #### 2 4323-8, #### [facility] CLIA [id number] [address] [place], [place] [id number] [facility] Urea nitrogen [Mass/Vol] 16 mg/dL Normal 7-26 [facility] Comment on above: Order Comment: Speci men Type: BLOOD SPECIMEN Ordering Facility: [facility] Address: [address] [place] [address] Performed By: #### 2 4323-8, #### [facility] CLIA [id number] [address] [place], [place] [id number] [facility] HISTORY PHYSICALon HISTORY PHYSICAL HNO ID: [id number] Author: RENA LEUNG DO Service: Hospital Medicine Author Type: Physician Type: H&P Filed: 02/27/2025 10:35 Note Text: HISTORY AND PHYSICAL SERVICE DATE: 02/26/2025 SERVICE TIME: 3:38 PM PRIMARY CARE PHYSICIAN: Tobias Pickard MD Subjective CHIEF COMPLAINT: Weakness HPI: Patient is a 74-year-old male who initially presented to the [facility] emergency department on February 23, 2025, for further evaluation of increasing weakness. He had also had multiple recent falls and admitted to utilizing his lift chair at home more frequently. He was admitted, and per my discussion with the floor provider there the plan was for the patient to work with therapy with plans for potential placement on discharge. While admitted there were concerns that the patient's known cervical spine stenosis may have been contributing to some of his symptoms. MRI was ordered, but the patient refused to have it done because he requested to have it done with anesthesia. Because of that the decision was made to transfer the patient. He personally requested to come here to [facility] instead of [facility]. PAST MEDICAL HISTORY: Hypertension Hyperlipidemia Hypothyroidism Cervical spine stenosis Neuropathy GERD PAST SURGICAL HISTORY: Spinal fusion Tyronza teeth extraction FAMILY HISTORY: Mother: Hypertension SOCIAL HISTORY: Denies tobacco, EtOH, illicits MEDICATIONS: pravastatin (PRAVACHOL) 10 mg tablet, , Disp: , Rfl: levothyroxine (SYNTHROID) 25 mcg tablet, , Disp: , Rfl: triamterene-hydroCHLOROt hiazide (MAXZIDE-25) 37.5-25 mg per tablet, Take 1 tablet by mouth once daily. , Disp: , Rfl: aspirin 325 mg cap, Take 1 capsule by mouth once daily., Disp: , Rfl: acetaminophen (TYLENOL EXTRA STRENGTH) 500 mg tablet, Take 500 mg by mouth every 8 hours as needed., Disp: , Rfl: ibuprofen (ADVIL) 200 mg tablet, Take 200 mg by mouth every 6 hours as needed., Disp: , Rfl: aspirin (ASPIR-81 ORAL), Take by mouth., Disp: , Rfl: multivit-min/FA/lycopen/ lutein (CENTRUM SILVER MEN ORAL), Take by mouth., Disp: , Rfl: polyethylene glycol 3350 (MIRALAX, GLYCOLAX) 17 gram packet, Take 1 Packet by mouth once daily as needed. (Patient not taking: Reported on 06/03/2021 ), Disp: , Rfl: fluticasone (FLONASE ALLERGY RELIEF) 50 mcg/actuation nasal spray, Use 1 Disputanta in each nostril once daily. (Patient not taking: Reported on 06/03/2021 ), Disp: , Rfl: PEG 400-propylene glycol (SYSTANE ULTRA) 0.4-0.3 % ophthalmic solution, Use in both eyes as needed. (Patient not taking: Reported on 06/03/2021 ), Disp: , Rfl: pantoprazole DR (PROTONIX) 40 mg tablet, Take 40 mg by mouth once daily., Disp: , Rfl: diphenhydrAMINE (ZZZQUIL) 25 mg capsule, Take 25 mg by mouth at bedtime as needed. (Patient not taking: Reported on 06/03/2021 ), Disp: , Rfl: VITAMIN B COMPLEX (B-COMPLEX ORAL), Take by mouth once daily., Disp: , Rfl: ALLERGIES: No Known Allergies REVIEW OF SYSTEMS: Constitutional: admits to weakness, no fever/chills/sweats, no fatigue, no weight gain/loss HEENT: no vision changes, no hearing loss, no nasal congestion/drainage, no sore throat Cardiovascular: no chest pain, no palpitations, no orthopnea, no leg swelling, no syncope Respiratory: no shortness of breath, no cough, no sputum production, no wheezing, no hemoptysis Gastrointestinal: no abdominal pain, no nausea/vomiting, no diarrhea, no constipation, no bloody stool, no loss of appetite Genitourinary: no dysuria, no hematuria, no retention, no urgency, no penile/vaginal discharge, no vaginal bleeding Musculoskeletal: no joint pain/swelling, no back pain, no muscle aches Skin: no rashes Lymphatic: no enlarged lymph nodes Endocrine: no polyuria, no polydipsia, no temperature intolerance Neurology: no headache, no dizziness, no numbness, no weakness, no tingling, no difficulty with speech Psychiatry: no anxiety, no depression, no suicidal ideation Objective BP 155/85 Pulse 80 Resp 18 SpO2 97% O2 Therapy: Room Air PHYSICAL EXAM: General: alert and oriented x3, resting comfortably Neck: supple, no hepatojugular reflux or jugular venous distention, no carotid bruits Lungs: clear to auscultation bilaterally, no wheezing, rales, or rhonchi Cardiac: regular rate and rhythm, normal S1 and S2, no murmurs, gallops, or rubs Abdomen: soft, nontender, nondistended, bowel sounds present Extremities: no edema, cyanosis, or clubbing Skin: no rashes or breakdown Lymphatic: no cervical or supraclavicular lymphadenopathy Neurologic: cranial nerves II-XII are grossly intact Psychiatry: normal affect, no hallucinations, no suicidal ideation DATA: Recent Results (from the past 24 hours) COMPLETE BLOOD COUNT Collection Time: 02/26/25 3:24 PM Result Value Ref Range WBC 8.52 3.70 - 11.00 k/uL RBC 4.37 4.20 - 6.00 m/uL Hemoglobin 14.1 13.0 - 17.0 g/dL Hematocrit 41.1 39.0 (more content not included)... Normal [facility] LABORATORYOrdered By: SYSTEM SYSTEM on 02-26-2025 Calcium [Mass/Vol] 8.8 mg/dL Normal 8.4 - 10. 2 mg/dL AO ADM SS Chloride [Moles/Vol] 103 mmol/L Normal 98 - 10 7 mmol/L AO ADM SS CO2 [Moles/Vol] 28 mmol/L Normal 23 - 31 mmol/L AO ADM SS Creatinine [Mass/Vol] 0.38 mg/dL Low 0.67 - 1.17 mg/dL AO ADM SS Electrolyte Balance 7.0 mEq/L Normal 4.0 - 15 .0 mEq/L AO ADM SS Estimated Glomerular Filtration Rate 116 ml/min/1.73sqm Invalid Interpretation Code AO Chemistry S Comment on above: Interpretive Data: Stages of Chronic Kidney Disease (CKD) Stage Description eGFR(ml/min/1.73 sq.m.) CKD 1 Normal kidney function or >=90 normal kindney function with possible kidney damage (ex. Proteinuria) CKD 2 Kidney damage with mild loss 60-89 of kidney function CKD 3a Mild to moderate loss of kidney 45-59 function CKD 3b Moderate to severe loss of 30-44 of kindey function CKD 4 Severe loss of kidney function 15-29 CKD 5 Kidney failure <15 Note: (go live 2024) the eGFR calculation was updated to the 2020 CKD-EPI creatinine equation without a race factor to calculate the eGFR results. Glucose [Mass/Vol] 97 mg/dL Normal 83 - 110 mg/dL AO ADM SS Magnesium [Mass/Vol] 1.7 mg/dL Low 1.8 - 2 .4 mg/dL AO ADM SS Potassium [Moles/Vol] 4.0 mmol/L Normal 3.5 - 5.1 mmol/L AO ADM SS Sodium [Moles/Vol] 138 mmol/L Normal 136 - 145 mmol/L AO ADM SS Urea nitrogen [Mass/Vol] 24 mg/dL High 7 - 18 mg/dL AO ADM SS Urea nitrogen/Creatinine [Mass ratio] 63 ratio High 7 - 27 ratio AO ADM SS MGon 02-26-2025 Magnesium [Mass/Vol] 1.7 mg/dL Low 1.8-2.4 [facility] Comment on above: Performed By: #### M G, GFR, BMP #### [address] [place], [place] [address] Magnesium SerPl-mCncon 02-26 Magnesium [Mass/Vol] 2.2 mg/dL Normal 1.6-2.6 [facility] Comment on above: Order Comment: Speci men Type: BLOOD SPECIMEN Ordering Facility: [facility] Address: [address] [place] [address] Performed By: #### 2 4323-8, 51608-0 #### [facility] CLIA [id number] [address] [place] [address] [place] XR SPINE CERVICAL AP/LATon 0 02-26-2025 XR SPINE CERVICAL AP/LAT ORIGINAL EXAMINATION: 4 XRAY VIEWS OF THE CERVICAL SPINE 02/26/2025 11:08 am COMPARISON: CT dated 05/15/2023 HISTORY: ORDERING SYSTEM PROVIDED HISTORY: Reason for Exam: Neck pain FINDINGS: Lung apices are aerated. Mild straightening of the cervical spine. Severe cervical spondylosis most pronounced from C4 through C7 with disc space narrowing, facet and uncovertebral joint arthropathy. There is no significant spondylolisthesis. Vertebral body heights are maintained. Prevertebral soft tissues are within normal limits. Calcifications in the bilateral paracervical soft tissues which may be related to underlying vascular/carotid calcifications. Odontoid view is suboptimal. IMPRESSION: Severe cervical spondylosis most pronounced from C4 through C7. Additional findings as above. Interpreted by: Ginna De La Cruz Preliminary Report By: Ginna De La Cruz Electronically signed By Ginna De La Cruz Dictated Date: 02/26/2025 11:21:43 AM Prelim Date: 02/26/2025 11:23:35 AM Sign Date: 02/26/2025 11:23:35 AM Ordering Provider: GINGER ANDRES Interpreted by: Ginna De La Cruz Preliminary Report By: Ginna De La Cruz Electronically signed By Ginna De La Cruz Dictated Date: 02/26/2025 11:21:43 AM Prelim Date: 02/26/2025 11:23:35 AM Sign Date: 02/26/2025 11:23:35 AM Ordering Provider: GINGER ANDRES [facility] .GFRon 02-25-2025 Estimated Glomerular Filtration Rate 116 ml/min/1.73sqm [facility] Comment on above: Result Comment: Stages of Chronic Kidney Disease (CKD) Stage Description eGFR(ml/min/1.73 sq.m.) CKD 1 Normal kidney function or >=90 normal kindney function with possible kidney damage (ex. Proteinuria) CKD 2 Kidney damage with mild loss 60-89 of kidney function CKD 3a Mild to moderate loss of kidney 45-59 function CKD 3b Moderate to severe loss of 30-44 of kindey function CKD 4 Severe loss of kidney function 15-29 CKD 5 Kidney failure <15 Note: (go live 2024) the eGFR calculation was updated to the 2020 CKD-EPI creatinine equation without a race factor to calculate the eGFR results. Performed By: #### M G, CK, GFR, BMP #### [address] [address] BMPon 02-25-2025 BUN/Creatinine Ratio 47 ratio High 7-27 [facility] Comment on above: Performed By: #### M G, CK, GFR, BMP #### [address] [address] Calcium [Mass/Vol] 8.5 mg/dL Normal 8.4-10.2 [facility] Comment on above: Performed By: #### M G, CK, GFR, BMP #### [address] [address] Chloride [Moles/Vol] 105 mmol/L Normal 98-107 [facility] Comment on above: Performed By: #### M G, CK, GFR, BMP #### [address] [address] CO2 [Moles/Vol] 29 mmol/L Normal 23-31 [facility] Comment on above: Performed By: #### M G, CK, GFR, BMP #### [address] [address] Creatinine [Mass/Vol] 0.38 mg/dL Low 0.67-1.17 [facility] Comment on above: Performed By: #### M G, CK, GFR, BMP #### [address] [address] Electrolyte Balance 5.0 mEq/L Normal 4.0-15.0 [facility] Comment on above: Performed By: #### M G, CK, GFR, BMP #### [address] [address] Glucose [Mass/Vol] 86 mg/dL Normal 83-110 [facility] Comment on above: Performed By: #### M G, CK, GFR, BMP #### [address] [place], [place] [address] Potassium [Moles/Vol] 4.2 mmol/L Normal 3.5-5.1 [facility] Comment on above: Performed By: #### M G, CK, GFR, BMP #### [address] [place], [place] [address] Sodium [Moles/Vol] 139 mmol/L Normal 136-145 [facility] Comment on above: Performed By: #### M G, CK, GFR, BMP #### [address] [place], [place] [address] Urea nitrogen [Mass/Vol] 18 mg/dL Normal 7-18 [facility] Comment on above: Performed By: #### M G, CK, GFR, BMP #### [address] [place], [place] [address] LABORATORYOrdered By: SYSTEM SYSTEM on 02-25-2025 Calcium [Mass/Vol] 8.5 mg/dL Normal 8.4 - 10. 2 mg/dL AO ADM SS Chloride [Moles/Vol] 105 mmol/L Normal 98 - 10 7 mmol/L AO ADM SS CO2 [Moles/Vol] 29 mmol/L Normal 23 - 31 mmol/L AO ADM SS Creatinine [Mass/Vol] 0.38 mg/dL Low 0.67 - 1.17 mg/dL AO ADM SS Electrolyte Balance 5.0 mEq/L Normal 4.0 - 15 .0 mEq/L AO ADM SS Estimated Glomerular Filtration Rate 116 ml/min/1.73sqm Invalid Interpretation Code AO Chemistry S Comment on above: Interpretive Data: Stages of Chronic Kidney Disease (CKD) Stage Description eGFR(ml/min/1.73 sq.m.) CKD 1 Normal kidney function or >=90 normal kindney function with possible kidney damage (ex. Proteinuria) CKD 2 Kidney damage with mild loss 60-89 of kidney function CKD 3a Mild to moderate loss of kidney 45-59 function CKD 3b Moderate to severe loss of 30-44 of kindey function CKD 4 Severe loss of kidney function 15-29 CKD 5 Kidney failure <15 Note: (go live 2024) the eGFR calculation was updated to the 2020 CKD-EPI creatinine equation without a race factor to calculate the eGFR results. Glucose [Mass/Vol] 86 mg/dL Normal 83 - 110 mg/dL AO ADM SS Magnesium [Mass/Vol] 1.7 mg/dL Low 1.8 - 2 .4 mg/dL AO ADM SS Potassium [Moles/Vol] 4.2 mmol/L Normal 3.5 - 5.1 mmol/L AO ADM SS Sodium [Moles/Vol] 139 mmol/L Normal 136 - 145 mmol/L AO ADM SS Urea nitrogen [Mass/Vol] 18 mg/dL Normal 7 - 18 mg/dL AO ADM SS Urea nitrogen/Creatinine [Mass ratio] 47 ratio High 7 - 27 ratio AO ADM SS MGon 02-25-2025 Magnesium [Mass/Vol] 1.7 mg/dL Low 1.8-2.4 [facility] Comment on above: Performed By: #### M G, CK, GFR, BMP #### [address] [address] .GFRon 02-24-2025 Estimated Glomerular Filtration Rate 115 ml/min/1.73sqm Normal [facility] Comment on above: Result Comment: Stages of Chronic Kidney Disease (CKD) Stage Description eGFR(ml/min/1.73 sq.m.) CKD 1 Normal kidney function or >=90 normal kindney function with possible kidney damage (ex. Proteinuria) CKD 2 Kidney damage with mild loss 60-89 of kidney function CKD 3a Mild to moderate loss of kidney 45-59 function CKD 3b Moderate to severe loss of 30-44 of kindey function CKD 4 Severe loss of kidney function 15-29 CKD 5 Kidney failure <15 Note: (go live 2024) the eGFR calculation was updated to the 2020 CKD-EPI creatinine equation without a race factor to calculate the eGFR results. Performed By: #### M G, CK, GFR, BMP #### [address] [address] BMPon 02-24-2025 BUN/Creatinine Ratio 41 ratio High 7-27 [facility] Comment on above: Performed By: #### M G, CK, GFR, BMP #### [address] [address] Calcium [Mass/Vol] 8.4 mg/dL Normal 8.4-10.2 [facility] Comment on above: Performed By: #### M G, CK, GFR, BMP #### [address] [address] Chloride [Moles/Vol] 106 mmol/L Normal 98-107 [facility] Comment on above: Performed By: #### M G, CK, GFR, BMP #### [address] [address] CO2 [Moles/Vol] 28 mmol/L Normal 23-31 [facility] Comment on above: Performed By: #### M G, CK, GFR, BMP #### [address] [address] Creatinine [Mass/Vol] 0.39 mg/dL Low 0.67-1.17 [facility] Comment on above: Performed By: #### M G, CK, GFR, BMP #### [address] [address] Electrolyte Balance 6.0 mEq/L Normal 4.0-15.0 [facility] Comment on above: Performed By: #### M G, CK, GFR, BMP #### [address] [address] Glucose [Mass/Vol] 91 mg/dL Normal 83-110 [facility] Comment on above: Performed By: #### M G, CK, GFR, BMP #### [address] [address] Potassium [Moles/Vol] 4.4 mmol/L Normal 3.5-5.1 [facility] Comment on above: Performed By: #### M G, CK, GFR, BMP #### [address] [address] Sodium [Moles/Vol] 140 mmol/L Normal 136-145 [facility] Comment on above: Performed By: #### M G, CK, GFR, BMP #### [address] [address] Urea nitrogen [Mass/Vol] 16 mg/dL Normal 7-18 [facility] Comment on above: Performed By: #### M G, CK, GFR, BMP #### [address] [place], [place] [address] CKon 02-24-2025 CK [Catalytic activity/Vol] 199 U/L Normal 39-308 [facility] Comment on above: Performed By: #### M G, CK, GFR, BMP #### [address] [place], [place] [address] LABORATORYOrdered By: SYSTEM SYSTEM on 02-24-2025 Calcium [Mass/Vol] 8.4 mg/dL Normal 8.4 - 10. 2 mg/dL AO ADM SS Chloride [Moles/Vol] 106 mmol/L Normal 98 - 10 7 mmol/L AO ADM SS CK [Catalytic activity/Vol] 199 U/L Normal 39 - 308 U/L AO ADM SS CO2 [Moles/Vol] 28 mmol/L Normal 23 - 31 mmol/L AO ADM SS Creatinine [Mass/Vol] 0.39 mg/dL Low 0.67 - 1.17 mg/dL AO ADM SS Electrolyte Balance 6.0 mEq/L Normal 4.0 - 15 .0 mEq/L AO ADM SS Estimated Glomerular Filtration Rate 115 ml/min/1.73sqm Invalid Interpretation Code AO Chemistry S Comment on above: Interpretive Data: Stages of Chronic Kidney Disease (CKD) Stage Description eGFR(ml/min/1.73 sq.m.) CKD 1 Normal kidney function or >=90 normal kindney function with possible kidney damage (ex. Proteinuria) CKD 2 Kidney damage with mild loss 60-89 of kidney function CKD 3a Mild to moderate loss of kidney 45-59 function CKD 3b Moderate to severe loss of 30-44 of kindey function CKD 4 Severe loss of kidney function 15-29 CKD 5 Kidney failure <15 Note: (go live 2024) the eGFR calculation was updated to the 2020 CKD-EPI creatinine equation without a race factor to calculate the eGFR results. Glucose [Mass/Vol] 91 mg/dL Normal 83 - 110 mg/dL AO ADM SS Magnesium [Mass/Vol] 1.8 mg/dL Normal 1.8 - 2 .4 mg/dL AO ADM SS Potassium [Moles/Vol] 4.4 mmol/L Normal 3.5 - 5.1 mmol/L AO ADM SS Sodium [Moles/Vol] 140 mmol/L Normal 136 - 145 mmol/L AO ADM SS Urea nitrogen [Mass/Vol] 16 mg/dL Normal 7 - 18 mg/dL AO ADM SS Urea nitrogen/Creatinine [Mass ratio] 41 ratio High 7 - 27 ratio AO ADM SS MGon 02-24-2025 Magnesium [Mass/Vol] 1.8 mg/dL Normal 1.8-2.4 [facility] Comment on above: Performed By: #### M G, CK, GFR, BMP #### [address] [address] .Auto Diffon 02-23-2025 Basophil, Absolute 0.0 10 3/mcL Normal 0.0-0.3 [facility] Comment on above: Performed By: #### M G, CK, GFR, BMP #### [address] [address] Basophils/100 WBC (Bld) 0.3 % Normal 0.0-2.5 [facility] Comment on above: Performed By: #### M G, CK, GFR, BMP #### [address] [address] Eosinophil, Absolute 0.1 10 3/mcL Normal 0.0-0.7 [facility] Comment on above: Performed By: #### M G, CK, GFR, BMP #### [address] [address] Eosinophils/100 WBC (Bld) 1.3 % Normal 0.0-6.0 [facility] Comment on above: Performed By: #### M G, CK, GFR, BMP #### [address] [address] Lymphocyte, Absolute 1.2 10 3/mcL Normal 0.9-4.3 [facility] Comment on above: Performed By: #### M G, CK, GFR, BMP #### [address] [address] Lymphocytes/100 WBC (Bld) 20.1 % Normal 20.0-40.0 [facility] Comment on above: Performed By: #### M G, CK, GFR, BMP #### [address] [address] Monocyte, Absolute 0.6 10 3/mcL Normal 0.1-1.4 [facility] Comment on above: Performed By: #### M G, CK, GFR, BMP #### [address] [address] Monocytes/100 WBC (Bld) 10.1 % Normal 2.0-13.0 [facility] Comment on above: Performed By: #### M G, CK, GFR, BMP #### [address] [address] Neutrophils/100 WBC (Bld) 68.2 % Normal 50.0-75.0 [facility] Comment on above: Performed By: #### M G, CK, GFR, BMP #### [address] [address] .GFRon 02-23-2025 Estimated Glomerular Filtration Rate 119 ml/min/1.73sqm Normal [facility] Comment on above: Result Comment: Stages of Chronic Kidney Disease (CKD) Stage Description eGFR(ml/min/1.73 sq.m.) CKD 1 Normal kidney function or >=90 normal kindney function with possible kidney damage (ex. Proteinuria) CKD 2 Kidney damage with mild loss 60-89 of kidney function CKD 3a Mild to moderate loss of kidney 45-59 function CKD 3b Moderate to severe loss of 30-44 of kindey function CKD 4 Severe loss of kidney function 15-29 CKD 5 Kidney failure <15 Note: (go live 2024) the eGFR calculation was updated to the 2020 CKD-EPI creatinine equation without a race factor to calculate the eGFR results. Performed By: #### M G, CK, GFR, BMP #### [address] [address] .MDWon 02-23-2025 Monocyte Distribution Width 17.75 Normal 0.00-20.00 [facility] Comment on above: Result Comment: For ED adult patients suspected of sepsis, MDW<=20.0 does not rule out sepsis or risk of sepsis Performed By: #### M G, CK, GFR, BMP #### [address] [address] .NEUABSon 02-23-2025 Neutrophil, Absolute 4.2 10 3/mcL Normal 2.3-8.1 [facility] Comment on above: Performed By: #### M G, CK, GFR, BMP #### [address] [address] BMPon 02-23-2025 BUN/Creatinine Ratio 57 ratio High 7-27 [facility] Comment on above: Performed By: #### M G, CK, GFR, BMP #### [address] [address] Calcium [Mass/Vol] 8.9 mg/dL Normal 8.4-10.2 [facility] Comment on above: Performed By: #### M G, CK, GFR, BMP #### [address] [address] Chloride [Moles/Vol] 104 mmol/L Normal 98-107 [facility] Comment on above: Performed By: #### M G, CK, GFR, BMP #### [address] [address] CO2 [Moles/Vol] 29 mmol/L Normal 23-31 [facility] Comment on above: Performed By: #### M G, CK, GFR, BMP #### [address] [address] [address] Creatinine [Mass/Vol] 0.35 mg/dL Low 0.67-1.17 [facility] Comment on above: Performed By: #### M G, CK, GFR, BMP #### [address] [address] Electrolyte Balance 7.0 mEq/L Normal 4.0-15.0 [facility] Comment on above: Performed By: #### M G, CK, GFR, BMP #### [address] [address] Glucose [Mass/Vol] 99 mg/dL Normal 83-110 [facility] Comment on above: Performed By: #### M G, CK, GFR, BMP #### [address] [address] Potassium [Moles/Vol] 4.6 mmol/L Normal 3.5-5.1 [facility] Comment on above: Performed By: #### M G, CK, GFR, BMP #### [address] [address] Sodium [Moles/Vol] 140 mmol/L Normal 136-145 [facility] Comment on above: Performed By: #### M G, CK, GFR, BMP #### [address] [address] Urea nitrogen [Mass/Vol] 20 mg/dL High 7-18 [facility] Comment on above: Performed By: #### M G, CK, GFR, BMP #### [address] [address] CBCon 02-23-2025 Erythrocyte distribution width (RBC) [Ratio] 13.9 % Normal 11.5-15.5 [facility] Comment on above: Performed By: #### M G, CK, GFR, BMP #### [address] [address] Hematocrit (Bld) [Volume fraction] 42.1 % Normal 40.0-52.0 [facility] Comment on above: Performed By: #### M G, CK, GFR, BMP #### [address] [address] Hgb 14.3 G/dL Normal 13.0-17.5 [facility] Comment on above: Performed By: #### M G, CK, GFR, BMP #### [address] [address] MCH (RBC) [Entitic mass] 32.3 pg Normal 27.0-33.0 [facility] Comment on above: Performed By: #### M G, CK, GFR, BMP #### [address] [address] MCHC 34.1 G/dL Normal 32.0-36.0 [facility] Comment on above: Performed By: #### M G, CK, GFR, BMP #### [address] [address] MCV (RBC) [Entitic vol] 94.7 fL Normal 81.0-100.0 [facility] Comment on above: Performed By: #### M G, CK, GFR, BMP #### [address] [address] Platelet 259 10 3/mcL Normal 150-450 [facility] Comment on above: Performed By: #### M G, CK, GFR, BMP #### [address] [address] Platelet mean volume (Bld) [Entitic vol] 8.0 fL Normal 6.4-10.5 [facility] Comment on above: Performed By: #### M G, CK, GFR, BMP #### [address] [address] RBC 4.44 10 6/mcL Low 4.50-6.00 [facility] Comment on above: Performed By: #### M G, CK, GFR, BMP #### [address] [address] WBC 6.1 10 3/mcL Normal 4.5-10.8 [facility] Comment on above: Performed By: #### M G, CK, GFR, BMP #### [address] [address] CKon 02-23-2025 CK [Catalytic activity/Vol] 320 U/L High 39-308 [facility] Comment on above: Performed By: #### C K #### [address] [address] LABORATORYOrdered By: Bryant Hurt on 02-23-2025 Appearance (U) Clear (02/23/25 11:04 AM) Normal Clear AO Auto Urine SS Bilirubin Ql (U) Negative (02/23/25 11:04 AM) Normal Negative AO Auto Urine SS Color (U) Yellow (02/23/25 11:04 AM) Normal AO Auto Urine SS Glucose Test strip (U) [Mass/Vol] Negative Normal Negative AO Auto Urine SS Hemoglobin Auto test strip (U) [Mass/Vol] Negative (02/23/25 11:04 AM) Normal Negative AO Auto Urine SS Ketones Ql (U) Negative Normal Negative AO Auto Urine SS UA Leuk Est Negative (02/23/25 11:04 AM) Normal Negative AO Auto Urine SS UA Nitrite Negative (02/23/25 11:04 AM) Normal Negative AO Auto Urine SS UA pH 6.0 (02/23/25 11:04 AM) Normal 5.0 - 8.0 AO Auto Urine SS UA Protein Negative Normal Negative AO Auto Urine SS UA Spec Grav <=1.005 *ABN* (02/23/25 11:04 AM) Invalid Interpretation Code 1.015-1.025 AO Auto Urine SS UA Specimen Type Clean Catch (02/23/25 11:04 AM) Normal AO Auto Urine SS UA Urobilinogen 0.2 E.U./dL Normal 0.2-1.0 AO Auto Urine SS LABORATORYOrdered By: SYSTEM SYSTEM on 02-23-2025 Basophils (Bld) [#/Vol] 0.0 103/mcL Normal 0.0 - 0.3 10^3/mcL AO Workflow SS Basophils/100 WBC (Bld) 0.3 % Normal 0.0 - 2.5 % AO Workflow SS CK [Catalytic activity/Vol] 320 U/L High 39 - 308 U/L AO ADM SS Eosinophil, Absolute 0.1 103/mcL Normal 0.0 - 0 .7 10^3/mcL AO Workflow SS Eosinophils/100 WBC (Bld) 1.3 % Normal 0.0 - 6.0 % AO Workflow SS Erythrocyte distribution width (RBC) [Ratio] 13.9 % Normal 11.5 - 15.5 % AO Workflow SS Hematocrit (Bld) [Volume fraction] 42.1 % Normal 40.0 - 52.0 % AO Workflow SS Hemoglobin (Bld) [Mass/Vol] 14.3 G/dL Normal 13.0 - 17.5 G/dL AO Workflow SS Lymphocytes (Bld) [#/Vol] 1.2 103/mcL Normal 0.9 - 4.3 10^3/mcL AO Workflow SS Lymphocytes/100 WBC (Bld) 20.1 % Normal 20.0 - 40.0 % AO Workflow SS MCH (RBC) [Entitic mass] 32.3 pg Normal 27.0 - 33.0 pg AO Workflow SS MCHC 34.1 G/dL Normal 32.0 - 36.0 G/dL AO Workflow SS MCV (RBC) [Entitic vol] 94.7 fL Normal 81.0 - 100.0 fL AO Workflow SS Monocyte distribution width Auto (Bld) [Entitic vol] 17.75 1 Normal 0.00 - 20.00 AO Workflow SS Comment on above: Result Comment: For ED adult patients suspected of sepsis, MDW<=20.0 does not rule out sepsis or risk of sepsis Monocytes (Bld) [#/Vol] 0.6 103/mcL Normal 0.1 - 1.4 10^3/mcL AO Workflow SS Monocytes/100 WBC (Bld) 10.1 % Normal 2.0 - 13.0 % AO Workflow SS Neutrophils (Bld) [#/Vol] 4.2 103/mcL Normal 2.3 - 8.1 10^3/mcL AO Workflow SS Neutrophils/100 WBC (Bld) 68.2 % Normal 50.0 - 75.0 % AO Workflow SS Platelet mean volume (Bld) [Entitic vol] 8.0 fL Normal 6.4 - 10.5 fL AO Workflow SS Platelets (Bld) [#/Vol] 259 103/mcL Normal 150 - 450 10^3/mcL AO Workflow SS RBC (Bld) [#/Vol] 4.44 106/mcL Low 4.50 - 6.0 0 10^6/mcL AO Workflow SS Troponin I.cardiac DL <= 0.01 ng/mL [Mass/Vol] 39 ng/L Normal 0 - 76 ng/L AO ADM SS Comment on above: Interpretive Data: H igh Sensitive Troponin I Reference Ranges: Female: 0-51 ng/L Male: 0-76 ng/L Testing performed on Beeline using a homogeneous sandwich chemiluminescent immunoassay based on [employer] technology. WBC (Bld) [#/Vol] 6.1 103/mcL Normal 4.5 - 10.8 10^3/mcL AO Workflow SS MGon 02-23-2025 Magnesium [Mass/Vol] 1.8 mg/dL Normal 1.8-2.4 [facility] Comment on above: Performed By: #### M G, CK, GFR, BMP #### [address] [address] TROPHSon 02-23-2025 High Sensitivity Troponin I 39 ng/L Normal 0-76 [facility] Comment on above: Result Comment: High Sensitive Troponin I Reference Ranges: Female: 0-51 ng/L Male: 0-76 ng/L Testing performed on Beeline using a homogeneous sandwich chemiluminescent immunoassay based on [employer] technology. Performed By: #### M G, CK, GFR, BMP #### [place] [id number] UAon 02-23-2025 Color (U) Yellow Normal [facility] Comment on above: Performed By: #### U A #### [place] [address] Glucose (U) [Mass/Vol] Negative Normal Negative [facility] Comment on above: Performed By: #### U A #### [place] [address] Ketones Ql (U) Negative Normal Negative [facility] Comment on above: Performed By: #### U A #### [place] [address] UA Appear Clear Normal Clear [facility] Comment on above: Performed By: #### U A #### [address] [address] UA Blood Negative Normal Negative [facility] Comment on above: Performed By: #### U A #### [place] [address] UA Leuk Est Negative Normal Negative [facility] Comment on above: Performed By: #### U A #### [place] [address] UA Nitrite Negative Normal Negative [facility] Comment on above: Performed By: #### U A #### [place] [address] UA pH 6.0 Normal 5.0 - 8.0 [facility] Comment on above: Performed By: #### U A #### [place] [address] UA Protein Negative Normal Negative [facility] Comment on above: Performed By: #### U A #### [place] [address] UA Spec Grav <=1.005 Abnormal 1.015-1.025 [facility] Comment on above: Performed By: #### U A #### [place] [address] UA Specimen Type Clean Catch Normal [facility] Comment on above: Performed By: #### U A #### [place] [address] UA Urobilinogen 0.2 E.U./dL Normal 0.2-1.0 [facility] Comment on above: Performed By: #### U A #### [place] [address] Urobilinogen (U) [Mass/Vol] Negative Normal Negative [facility] Comment on above: Performed By: #### U A #### [place] [address] XR CHEST 1 VIEWon 02-23-2025 XR CHEST 1 VIEW ORIGINAL EXAMINATION: ONE XRAY VIEW OF THE CHEST02/23/2025 11:19 am CHEST ONE VIEW AP/PA COMPARISON: None HISTORY: ORDERING SYSTEM PROVIDED HISTORY: Reason for Exam: weakness FINDINGS: The cardiomediastinal contours are normal. There is linear atelectasis in the right lung base. There is no focal consolidation, pleural effusion, or pneumothorax. No acute osseous abnormality. There are degenerative and postoperative changes in the spine.. IMPRESSION: Linear atelectasis in the right lung base. Otherwise, no acute radiographic findings. Interpreted by: Sanford Barton MD Preliminary Report By: Sanford Barton MD Electronically signed By Sanford Barton MD Dictated Date: 02/23/2025 11:50:59 AM Prelim Date: 02/23/2025 11:51:46 AM Sign Date: 02/23/2025 11:51:46 AM Ordering Provider: GREER SANCHEZ Interpreted by: Sanford Barton MD Preliminary Report By: Sanford Barton MD Electronically signed By Sanford Barton MD Dictated Date: 02/23/2025 11:50:59 AM Prelim Date: 02/23/2025 11:51:46 AM Sign Date: 02/23/2025 11:51:46 AM Ordering Provider: GREER SANCHEZ [facility] RIFAMPIN:SUSC:PT:ISOLATE:ORD QN:MICon 07-07-2024 rifAMPin ROBERT [Susc] >100,000 cfu/ml Enterococcus faecalis [facility] Work Phone: rifAMPin ROBERT [Susc]on 2023 Enterococcus faecalis Enterococcus faecalis [facility] Work Phone: TFTESTon 03-24-2024 Free Testost Direct 2.4 pg/mL Low 6.6-18.1 Formerly [facility], 1928–[facility] ([place]) Comment on above: Result Comment: Perf ormed At: [facility] [address] [id number] Ronn Gates MD Ph:[phone] Performed At: [facility] [address] [id number] Titi Dewitt PhD Ph:[phone] Performed By: #### B MP, CBC, CRP, ESR, GFR, ANEU, MG, ADIFF #### [address] [address] Testosterone Lvl 413 ng/dL Normal 264-276 [facility] ([place]) Comment on above: Result Comment: Adul t male reference interval is based on a population of healthy nonobese males (BMI <30) between 19 and 39 years old. dale Zacarias.al. JCEM 2017,102;3003-4318. PMID: [id number]. Performed By: #### B MP, CBC, CRP, ESR, GFR, ANEU, MG, ADIFF #### [address] [address] ANAon 03-23-2024 Nuclear Ab IF (S) [Titer] 40 {titer} Normal Neg 40 [facility] ([place]) Comment on above: Result Comment: ARNEL Screen and Titer methodology is an immunofluorescent technique utilizing Hep2 Substrate. Performed By: #### B MP, CBC, CRP, ESR, GFR, ANEU, MG, ADIFF #### [address] [address] .Auto Diffon 03-22-2024 Basophil, Absolute 0.0 10 3/mcL Normal 0.0-0.2 [facility] ([place]) Comment on above: Performed By: #### B MP, CBC, CRP, ESR, GFR, ANEU, MG, ADIFF #### [address] [address] Basophils/100 WBC (Bld) 0.4 % Normal 0.0-2.5 [facility] ([place]) Comment on above: Performed By: #### B MP, CBC, CRP, ESR, GFR, ANEU, MG, ADIFF #### [address] [address] Eosinophil, Absolute 0.1 10 3/mcL Normal 0.0-0.4 [facility] ([place]) Comment on above: Performed By: #### B MP, CBC, CRP, ESR, GFR, ANEU, MG, ADIFF #### [address] [address] Eosinophils/100 WBC (Bld) 0.9 % Normal 0.0-7.0 [facility] ([place]) Comment on above: Performed By: #### B MP, CBC, CRP, ESR, GFR, ANEU, MG, ADIFF #### [address] [address] Lymphocyte, Absolute 1.8 10 3/mcL Normal 0.8-3.9 [facility] ([place]) Comment on above: Performed By: #### B MP, CBC, CRP, ESR, GFR, ANEU, MG, ADIFF #### [address] [address] Lymphocytes/100 WBC (Bld) 23.6 % Normal 10.0-50.0 [facility] ([place]) Comment on above: Performed By: #### B MP, CBC, CRP, ESR, GFR, ANEU, MG, ADIFF #### [address] [address] Monocyte, Absolute 0.5 10 3/mcL Normal 0.2-1.0 [facility] ([place]) Comment on above: Performed By: #### B MP, CBC, CRP, ESR, GFR, ANEU, MG, ADIFF #### [address] [address] Monocytes/100 WBC (Bld) 6.8 % Normal 1.7-13.0 [facility] ([place]) Comment on above: Performed By: #### B MP, CBC, CRP, ESR, GFR, ANEU, MG, ADIFF #### [address] [address] Neutrophils/100 WBC (Bld) 68.3 % Normal 37.0-80.0 [facility] ([place]) Comment on above: Performed By: #### B MP, CBC, CRP, ESR, GFR, ANEU, MG, ADIFF #### [address] [address] .GFRon 03-22-2024 GFR 229 ml/min/1.73sqm Normal [facility] ([place]) Comment on above: Result Comment: GFR Population mean for , Non- Americans Ages 20-29 = 116 mL/min/1.73 sq.m. Ages 30-39 = 107 mL/min/1.73 sq.m. Ages 40-49 = 99 mL/min/1.73 sq.m. Ages 50-59 = 93 mL/min/1.73 sq.m. Ages 60-69 = 85 mL/min/1.73 sq.m. Ages 70+ = 75 mL/min/1.73 sq.m. Chronic Kidney Disease: Less than 60 mL/min/1.73 square meters End Stage Renal Disease: Less than 15 mL/min/1.73 square meters Performed By: #### B MP, CBC, CRP, ESR, GFR, ANEU, MG, ADIFF #### [address] [address] GFR Non- 189 ml/min/1.73sqm Normal [facility] ([place]) Comment on above: Result Comment: GFR Population mean for , Non- Americans Ages 20-29 = 116 mL/min/1.73 sq.m. Ages 30-39 = 107 mL/min/1.73 sq.m. Ages 40-49 = 99 mL/min/1.73 sq.m. Ages 50-59 = 93 mL/min/1.73 sq.m. Ages 60-69 = 85 mL/min/1.73 sq.m. Ages 70+ = 75 mL/min/1.73 sq.m. Chronic Kidney Disease: Less than 60 mL/min/1.73 square meters End Stage Renal Disease: Less than 15 mL/min/1.73 square meters Performed By: #### B MP, CBC, CRP, ESR, GFR, ANEU, MG, ADIFF #### [address] [address] .NEUABSon 03-22-2024 Neutrophil, Absolute 5.2 10 3/mcL Normal 2.9-6.2 [facility] ([place]) Comment on above: Performed By: #### B MP, CBC, CRP, ESR, GFR, ANEU, MG, ADIFF #### [address] [address] B12on 03-22-2024 Cobalamin (Vitamin B12) [Mass/Vol] 639 pg/mL Normal 211-911 [facility] ([place]) Comment on above: Performed By: #### B MP, CBC, CRP, ESR, GFR, ANEU, MG, ADIFF #### [address] [address] CBCon 03-22-2024 Erythrocyte distribution width (RBC) [Ratio] 14.5 % Normal 11.5-14.5 [facility] ([place]) Comment on above: Performed By: #### B MP, CBC, CRP, ESR, GFR, ANEU, MG, ADIFF #### [address] [address] Hematocrit (Bld) [Volume fraction] 42.1 % Normal 42.0-52.0 [facility] ([place]) Comment on above: Performed By: #### B MP, CBC, CRP, ESR, GFR, ANEU, MG, ADIFF #### [address] [address] Hgb 14.1 G/dL Normal 14.0-18.0 [facility] ([place]) Comment on above: Performed By: #### B MP, CBC, CRP, ESR, GFR, ANEU, MG, ADIFF #### [address] [address] MCH (RBC) [Entitic mass] 32.0 pg High 27.0-31.2 [facility] ([place]) Comment on above: Performed By: #### B MP, CBC, CRP, ESR, GFR, ANEU, MG, ADIFF #### [address] [address] MCHC 33.4 G/dL Normal 31.8-35.4 [facility] ([place]) Comment on above: Performed By: #### B MP, CBC, CRP, ESR, GFR, ANEU, MG, ADIFF #### [address] [address] MCV (RBC) [Entitic vol] 95.8 fL High 80.0-94.0 [facility] ([place]) Comment on above: Performed By: #### B MP, CBC, CRP, ESR, GFR, ANEU, MG, ADIFF #### [address] [address] Platelet 251 10 3/mcL Normal 130-400 [facility] ([place]) Comment on above: Performed By: #### B MP, CBC, CRP, ESR, GFR, ANEU, MG, ADIFF #### [address] [address] Platelet mean volume (Bld) [Entitic vol] 8.1 fL Normal 7.4-10.4 [facility] ([place]) Comment on above: Performed By: #### B MP, CBC, CRP, ESR, GFR, ANEU, MG, ADIFF #### [address] [address] RBC 4.40 10 6/mcL Normal 4.04-6.13 [facility] ([place]) Comment on above: Performed By: #### B MP, CBC, CRP, ESR, GFR, ANEU, MG, ADIFF #### [address] [address] WBC 7.5 10 3/mcL Normal 4.6-10.8 [facility] ([place]) Comment on above: Performed By: #### B MP, CBC, CRP, ESR, GFR, ANEU, MG, ADIFF #### [address] [address] CKon 03-22-2024 CK [Catalytic activity/Vol] 289 U/L Normal 39-308 [facility] ([place]) Comment on above: Performed By: #### B MP, CBC, CRP, ESR, GFR, ANEU, MG, ADIFF #### [address] [address] CMPon 03-22-2024 Albumin Level 3.7 G/dL Normal 3.4-4.8 [facility]) Comment on above: Performed By: #### B MP, CBC, CRP, ESR, GFR, ANEU, MG, ADIFF #### [address] [address] Albumin/Globulin [Mass ratio] 1.0 {ratio} Low 1.1-2.5 [facility] ([place]) Comment on above: Performed By: #### B MP, CBC, CRP, ESR, GFR, ANEU, MG, ADIFF #### [address] [address] ALP [Catalytic activity/Vol] 154 U/L High 40-135 [facility] ([place]) Comment on above: Performed By: #### B MP, CBC, CRP, ESR, GFR, ANEU, MG, ADIFF #### [address] [address] ALT [Catalytic activity/Vol] 53 U/L Normal 16-63 [facility] ([place]) Comment on above: Performed By: #### B MP, CBC, CRP, ESR, GFR, ANEU, MG, ADIFF #### [address] [address] AST [Catalytic activity/Vol] 39 U/L Normal 10-40 [facility] ([place]) Comment on above: Performed By: #### B MP, CBC, CRP, ESR, GFR, ANEU, MG, ADIFF #### [address] [address] Bili Total 1.1 mg/dL High 0.2-1.0 [facility] ([place]) Comment on above: Result Comment: Use of this assay is not recommended for patients undergoing treatment with eltrombopag due to the potential for falsely elevated results. Performed By: #### B MP, CBC, CRP, ESR, GFR, ANEU, MG, ADIFF #### [address] [address] BUN/Creatinine Ratio 50 ratio High 7-27 [facility] ([place]) Comment on above: Performed By: #### B MP, CBC, CRP, ESR, GFR, ANEU, MG, ADIFF #### [address] [address] Calcium [Mass/Vol] 9.5 mg/dL Normal 8.4-10.2 [facility] ([place]) Comment on above: Performed By: #### B MP, CBC, CRP, ESR, GFR, ANEU, MG, ADIFF #### [address] [address] Chloride [Moles/Vol] 105 mmol/L Normal 98-107 [facility] ([place]) Comment on above: Performed By: #### B MP, CBC, CRP, ESR, GFR, ANEU, MG, ADIFF #### [address] [address] CO2 [Moles/Vol] 29 mmol/L Normal 23-31 [facility] ([place]) Comment on above: Performed By: #### B MP, CBC, CRP, ESR, GFR, ANEU, MG, ADIFF #### [address] [address] Creatinine [Mass/Vol] 0.44 mg/dL Low 0.70-1.30 [facility] ([place]) Comment on above: Performed By: #### B MP, CBC, CRP, ESR, GFR, ANEU, MG, ADIFF #### [address] [address] Electrolyte Balance 8.0 mEq/L Normal 4.0-15.0 [facility], 1928–[facility] ([place]) Comment on above: Performed By: #### B MP, CBC, CRP, ESR, GFR, ANEU, MG, ADIFF #### [place] [address] Globulin 3.6 G/dL Normal [facility] ([place]) Comment on above: Performed By: #### B MP, CBC, CRP, ESR, GFR, ANEU, MG, ADIFF #### [address] [address] Glucose [Mass/Vol] 84 mg/dL Normal 83-110 [facility] ([place]) Comment on above: Performed By: #### B MP, CBC, CRP, ESR, GFR, ANEU, MG, ADIFF #### [address] [address] Potassium [Moles/Vol] 4.0 mmol/L Normal 3.5-5.1 [facility] ([place]) Comment on above: Performed By: #### B MP, CBC, CRP, ESR, GFR, ANEU, MG, ADIFF #### [address] [address] Sodium [Moles/Vol] 142 mmol/L Normal 136-145 [facility] ([place]) Comment on above: Performed By: #### B MP, CBC, CRP, ESR, GFR, ANEU, MG, ADIFF #### [address] [address] Total Protein 7.3 G/dL Normal 6.4-8.2 [facility] ([place]) Comment on above: Performed By: #### B MP, CBC, CRP, ESR, GFR, ANEU, MG, ADIFF #### [address] [address] Urea nitrogen [Mass/Vol] 22 mg/dL High 7-18 [facility] ([place]) Comment on above: Performed By: #### B MP, CBC, CRP, ESR, GFR, ANEU, MG, ADIFF #### [address] [address] CRPon 03-22-2024 C-Reactive Protein 0.2 mg/dL Normal 0.0-0.3 [facility] ([place]) Comment on above: Performed By: #### B MP, CBC, CRP, ESR, GFR, ANEU, MG, ADIFF #### [address] [address] ESRon 03-22-2024 Erythrocyte Sed Rate 22 mm/hr High 0-20 [facility]) Comment on above: Performed By: #### B MP, CBC, CRP, ESR, GFR, ANEU, MG, ADIFF #### [address] [address] Armando 03-22-2024 Ferritin [Mass/Vol] 148.0 ng/mL Normal 26.0-388.0 [facility]) Comment on above: Performed By: #### B MP, CBC, CRP, ESR, GFR, ANEU, MG, ADIFF #### [address] [address] FT4on 03-22-2024 Free T4 [Mass/Vol] 1.11 ng/dL Normal 0.76-1.46 [facility]) Comment on above: Performed By: #### B MP, CBC, CRP, ESR, GFR, ANEU, MG, ADIFF #### [address] [address] LABORATORYOrdered By: SYSTEM SYSTEM on 03-22-2024 25-hydroxyvitamin D3 [Mass/Vol] 53.5 ng/mL Invalid Interpretation Code AO ADM SS Comment on above: Interpretive Data: I nterpretive Values Based on Total 25(OH) Vitamin D: Deficient <20 ng/mL Insufficient 20 - <30 ng/mL Sufficient 30-100 ng/mL Albumin BCP dye [Mass/Vol] 3.7 G/dL Normal 3.4 - 4.8 G/dL AO ADM SS Albumin/Globulin [Mass ratio] 1.0 {ratio} Low 1.1 - 2.5 ratio AO ADM SS ALP [Catalytic activity/Vol] 154 U/L High 40 - 135 U/L AO ADM SS ALT With P-5'-P [Catalytic activity/Vol] 53 U/L Normal 16 - 63 U/L AO ADM SS AST With P-5'-P [Catalytic activity/Vol] 39 U/L Normal 10 - 40 U/L AO ADM SS Basophil, Absolute 0.0 103/mcL Normal 0.0 - 0.2 10^3/mcL AO Workflow SS Basophils/100 WBC (Bld) 0.4 % Normal 0.0 - 2.5 % AO Workflow SS Bilirubin [Mass/Vol] 1.1 mg/dL High 0.2 - 1 .0 mg/dL AO ADM SS Comment on above: Interpretive Data: U se of this assay is not recommended for patients undergoing treatment with eltrombopag due to the potential for falsely elevated results. Calcium [Mass/Vol] 9.5 mg/dL Normal 8.4 - 10. 2 mg/dL AO ADM SS Chloride [Moles/Vol] 105 mmol/L Normal 98 - 10 7 mmol/L AO ADM SS CK [Catalytic activity/Vol] 289 U/L Normal 39 - 308 U/L AO ADM SS CO2 [Moles/Vol] 29 mmol/L Normal 23 - 31 mmol/L AO ADM SS Cobalamin (Vitamin B12) [Mass/Vol] 639 pg/mL Normal 211 - 911 pg/mL AH ADM SS Creatinine [Mass/Vol] 0.44 mg/dL Low 0.70 - 1.30 mg/dL AO ADM SS CRP [Mass/Vol] 0.2 mg/dL Normal 0.0 - 0.3 mg/dL AO ADM SS Electrolyte Balance 8.0 mEq/L Normal 4.0 - 15 .0 mEq/L AO ADM SS Eosinophil, Absolute 0.1 103/mcL Normal 0.0 - 0 .4 10^3/mcL AO Workflow SS Eosinophils/100 WBC (Bld) 0.9 % Normal 0.0 - 7.0 % AO Workflow SS Erythrocyte distribution width (RBC) [Ratio] 14.5 % Normal 11.5 - 14.5 % AO Workflow SS Ferritin [Mass/Vol] 148.0 ng/mL Normal 26.0 - 388.0 ng/mL AO ADM SS Free T4 [Mass/Vol] 1.11 ng/dL Normal 0.76 - 1. 46 ng/dL AO ADM SS GFR/1.73 sq M.predicted among blacks MDRD (S/P/Bld) [Vol rate/Area] 229 ml/min/1.73sqm Invalid Interpretation Code AO Chemistry S Comment on above: Interpretive Data: GFR Population mean for , Non- Americans Ages 20-29 = 116 mL/min/1.73 sq.m. Ages 30-39 = 107 mL/min/1.73 sq.m. Ages 40-49 = 99 mL/min/1.73 sq.m. Ages 50-59 = 93 mL/min/1.73 sq.m. Ages 60-69 = 85 mL/min/1.73 sq.m. Ages 70+ = 75 mL/min/1.73 sq.m. Chronic Kidney Disease: Less than 60 mL/min/1.73 square meters End Stage Renal Disease: Less than 15 mL/min/1.73 square meters GFR/1.73 sq M.predicted among non-blacks MDRD (S/P/Bld) [Vol rate/Area] 189 ml/min/1.73sqm Invalid Interpretation Code AO Chemistry S Comment on above: Interpretive Data: GFR Population mean for , Non- Americans Ages 20-29 = 116 mL/min/1.73 sq.m. Ages 30-39 = 107 mL/min/1.73 sq.m. Ages 40-49 = 99 mL/min/1.73 sq.m. Ages 50-59 = 93 mL/min/1.73 sq.m. Ages 60-69 = 85 mL/min/1.73 sq.m. Ages 70+ = 75 mL/min/1.73 sq.m. Chronic Kidney Disease: Less than 60 mL/min/1.73 square meters End Stage Renal Disease: Less than 15 mL/min/1.73 square meters Globulin 3.6 G/dL Invalid Interpretation Code AO ADM SS Glucose [Mass/Vol] 84 mg/dL Normal 83 - 110 mg/dL AO ADM SS Hematocrit (Bld) [Volume fraction] 42.1 % Normal 42.0 - 52.0 % AO Workflow SS Hemoglobin (Bld) [Mass/Vol] 14.1 G/dL Normal 14.0 - 18.0 G/dL AO Workflow SS Lymphocyte, Absolute 1.8 103/mcL Normal 0.8 - 3 .9 10^3/mcL AO Workflow SS Lymphocytes/100 WBC (Bld) 23.6 % Normal 10.0 - 50.0 % AO Workflow SS MCH (RBC) [Entitic mass] 32.0 pg High 27.0 - 31.2 pg AO Workflow SS MCHC 33.4 G/dL Normal 31.8 - 35.4 G/dL AO Workflow SS MCV (RBC) [Entitic vol] 95.8 fL High 80.0 - 94.0 fL AO Workflow SS Monocyte, Absolute 0.5 103/mcL Normal 0.2 - 1.0 10^3/mcL AO Workflow SS Monocytes/100 WBC (Bld) 6.8 % Normal 1.7 - 13.0 % AO Workflow SS Neutrophil, Absolute 5.2 103/mcL Normal 2.9 - 6 .2 10^3/mcL AO Workflow SS Neutrophils/100 WBC (Bld) 68.3 % Normal 37.0 - 80.0 % AO Workflow SS Platelet mean volume (Bld) [Entitic vol] 8.1 fL Normal 7.4 - 10.4 fL AO Workflow SS Platelets (Bld) [#/Vol] 251 103/mcL Normal 130 - 400 10^3/mcL AO Workflow SS Potassium [Moles/Vol] 4.0 mmol/L Normal 3.5 - 5.1 mmol/L AO ADM SS Protein [Mass/Vol] 7.3 G/dL Normal 6.4 - 8.2 G/dL AO ADM SS RBC (Bld) [#/Vol] 4.40 106/mcL Normal 4.04 - 6.1 3 10^6/mcL AO Workflow SS Sodium [Moles/Vol] 142 mmol/L Normal 136 - 145 mmol/L AO ADM SS TSH Qn 2.90 m[IU]/L Normal 0.36 - 3.74 mcIU/mL AO ADM SS Urea nitrogen [Mass/Vol] 22 mg/dL High 7 - 18 mg/dL AO ADM SS Urea nitrogen/Creatinine [Mass ratio] 50 ratio High 7 - 27 ratio AO ADM SS WBC (Bld) [#/Vol] 7.5 103/mcL Normal 4.6 - 10.8 10^3/mcL AO Workflow SS LABORATORYOrdered By: Fransisca Walker on 03-22-2024 Cholesterol [Mass/Vol] 240 mg/dL High 0 - 2 00 mg/dL AO ADM SS Comment on above: Interpretive Data: C holesterol Reference Interval: Less than 200 Desirable 200-239 Borderline high risk 240 and above High risk Cholesterol in HDL [Mass/Vol] 81 mg/dL High 40 - 60 mg/dL AO ADM SS Cholesterol in LDL [Mass/Vol] 146 mg/dL High 0 - 130 mg/dL AO ADM SS Triglyceride [Mass/Vol] 67 mg/dL Normal 0 - 150 mg/dL AO ADM SS Comment on above: Interpretive Data: T riglyceride Reference Interval: Less than 150 Normal 150-199 Borderline high risk 200-499 High risk 500 or higher Very high risk LABORATORYOrdered By: Juan Carlos Rdorigez on 03-22-2024 ESR Photometric method (Bld) [Velocity] 22 mm/hr High 0 - 20 mm/hr AO Man Heme SS LABORATORYOrdered By: [employer] P CONTRIBUTOR_SYSTEM on 03-22-2024 Free Testost Direct (LC) 2.4 pg/mL Low 6.6-18.1 AO Sendouts SS Comment on above: Result Comment: Perf ormed At: [facility] [address] [id number] Ronn Gates MD Ph:[phone] Performed At: [facility] [address] [id number] Titi Dewitt PhD Ph:[phone] Testosterone Lvl (LC) 413 ng/dL Invalid Interpretation Code 264-620 AO Sendouts SS Comment on above: Result Comment: Adul t male reference interval is based on a population of healthy nonobese males (BMI <30) between 19 and 39 years old. dale Zacarias.al. JCEM 2017,102;4733-1443. PMID: [id number]. LABORATORYOrdered By: Jaun Vera on 03-22-2024 Nuclear Ab IF Ql (S) Neg 40 3 (03/22/24 4:32 PM) Normal Neg 40 AH Man Viro/Sero SS Comment on above: Interpretive Data: A NA Screen and Titer methodology is an immunofluorescent technique utilizing Hep2 Substrate. LIPIDon 03-22-2024 Cholesterol [Mass/Vol] 240 mg/dL High 0-200 [facility] ([place]) Comment on above: Result Comment: Chol esterol Reference Interval: Less than 200 Desirable 200-239 Borderline high risk 240 and above High risk Performed By: #### B MP, CBC, CRP, ESR, GFR, ANEU, MG, ADIFF #### [address] [address] Cholesterol in HDL [Mass/Vol] 81 mg/dL High 40-60 [facility] ([place]) Comment on above: Performed By: #### B MP, CBC, CRP, ESR, GFR, ANEU, MG, ADIFF #### [address] [address] Cholesterol in LDL [Mass/Vol] 146 mg/dL High 0-130 [facility] ([place]) Comment on above: Performed By: #### B MP, CBC, CRP, ESR, GFR, ANEU, MG, ADIFF #### [address] [address] Triglyceride [Mass/Vol] 67 mg/dL Normal 0-150 [facility] ([place]) Comment on above: Result Comment: Trig lyceride Reference Interval: Less than 150 Normal 150-199 Borderline high risk 200-499 High risk 500 or higher Very high risk Performed By: #### B MP, CBC, CRP, ESR, GFR, ANEU, MG, ADIFF #### [address] [address] TSHon 03-22-2024 TSH Qn 2.90 m[IU]/L Normal 0.36-3.74 [facility] ([place]) Comment on above: Performed By: #### B MP, CBC, CRP, ESR, GFR, ANEU, MG, ADIFF #### [address] [address] VIDHon 03-22-2024 Vit. D 25-Hydroxy 53.5 ng/mL Normal [facility] ([place]) Comment on above: Result Comment: Inte rpretive Values Based on Total 25(OH) Vitamin D: Deficient <20 ng/mL Insufficient 20 - <30 ng/mL Sufficient 30-100 ng/mL Performed By: #### B MP, CBC, CRP, ESR, GFR, ANEU, MG, ADIFF #### [address] [address] .Auto Diffon 07-26-2023 Basophil, Absolute 0.0 10 3/mcL Normal 0.0-0.2 [facility] ([place]) Comment on above: Performed By: #### B MP, CBC, CRP, ESR, GFR, ANEU, MG, ADIFF #### [address] [address] Basophils/100 WBC (Bld) 0.5 % Normal 0.0-2.5 [facility] ([place]) Comment on above: Performed By: #### B MP, CBC, CRP, ESR, GFR, ANEU, MG, ADIFF #### [address] [address] Eosinophil, Absolute 0.3 10 3/mcL Normal 0.0-0.4 [facility] ([place]) Comment on above: Performed By: #### B MP, CBC, CRP, ESR, GFR, ANEU, MG, ADIFF #### [address] [address] Eosinophils/100 WBC (Bld) 5.3 % Normal 0.0-7.0 [facility] ([place]) Comment on above: Performed By: #### B MP, CBC, CRP, ESR, GFR, ANEU, MG, ADIFF #### [address] [address] Lymphocyte, Absolute 2.1 10 3/mcL Normal 0.8-3.9 [facility] ([place]) Comment on above: Performed By: #### B MP, CBC, CRP, ESR, GFR, ANEU, MG, ADIFF #### [address] [address] Lymphocytes/100 WBC (Bld) 33.1 % Normal 10.0-50.0 [facility] ([place]) Comment on above: Performed By: #### B MP, CBC, CRP, ESR, GFR, ANEU, MG, ADIFF #### [address] [address] Monocyte, Absolute 0.7 10 3/mcL Normal 0.2-1.0 [facility] ([place]) Comment on above: Performed By: #### B MP, CBC, CRP, ESR, GFR, ANEU, MG, ADIFF #### [address] [address] Monocytes/100 WBC (Bld) 10.8 % Normal 1.7-13.0 [facility] ([place]) Comment on above: Performed By: #### B MP, CBC, CRP, ESR, GFR, ANEU, MG, ADIFF #### [address] [address] Neutrophils/100 WBC (Bld) 50.3 % Normal 37.0-80.0 [facility] ([place]) Comment on above: Performed By: #### B MP, CBC, CRP, ESR, GFR, ANEU, MG, ADIFF #### [address] [address] .GFRon 07-26-2023 GFR 137 ml/min/1.73sqm Normal [facility] ([place]) Comment on above: Result Comment: GFR Population mean for , Non- Americans Ages 20-29 = 116 mL/min/1.73 sq.m. Ages 30-39 = 107 mL/min/1.73 sq.m. Ages 40-49 = 99 mL/min/1.73 sq.m. Ages 50-59 = 93 mL/min/1.73 sq.m. Ages 60-69 = 85 mL/min/1.73 sq.m. Ages 70+ = 75 mL/min/1.73 sq.m. Chronic Kidney Disease: Less than 60 mL/min/1.73 square meters End Stage Renal Disease: Less than 15 mL/min/1.73 square meters Performed By: #### B MP, CBC, CRP, ESR, GFR, ANEU, MG, ADIFF #### [address] [address] GFR Non- 113 ml/min/1.73sqm Normal [facility] ([place]) Comment on above: Result Comment: GFR Population mean for , Non- Americans Ages 20-29 = 116 mL/min/1.73 sq.m. Ages 30-39 = 107 mL/min/1.73 sq.m. Ages 40-49 = 99 mL/min/1.73 sq.m. Ages 50-59 = 93 mL/min/1.73 sq.m. Ages 60-69 = 85 mL/min/1.73 sq.m. Ages 70+ = 75 mL/min/1.73 sq.m. Chronic Kidney Disease: Less than 60 mL/min/1.73 square meters End Stage Renal Disease: Less than 15 mL/min/1.73 square meters Performed By: #### B MP, CBC, CRP, ESR, GFR, ANEU, MG, ADIFF #### [address] [address] .NEUABSon 07-26-2023 Neutrophil, Absolute 3.1 10 3/mcL Normal 2.9-6.2 [facility] ([place]) Comment on above: Performed By: #### B MP, CBC, CRP, ESR, GFR, ANEU, MG, ADIFF #### [address] [address] BMPon 07-26-2023 BUN/Creatinine Ratio 23 ratio Normal 7-27 [facility] ([place]) Comment on above: Performed By: #### B MP, CBC, CRP, ESR, GFR, ANEU, MG, ADIFF #### [address] [address] Calcium [Mass/Vol] 8.6 mg/dL Normal 8.4-10.2 [facility] ([place]) Comment on above: Performed By: #### B MP, CBC, CRP, ESR, GFR, ANEU, MG, ADIFF #### [address] [place], [place] [address] Chloride [Moles/Vol] 103 mmol/L Normal 98-107 [facility] ([place]) Comment on above: Performed By: #### B MP, CBC, CRP, ESR, GFR, ANEU, MG, ADIFF #### [address] [address] CO2 [Moles/Vol] 28 mmol/L Normal 23-31 [facility] ([place]) Comment on above: Performed By: #### B MP, CBC, CRP, ESR, GFR, ANEU, MG, ADIFF #### [address] [address] Creatinine [Mass/Vol] 0.69 mg/dL Low 0.70-1.30 [facility] ([place]) Comment on above: Performed By: #### B MP, CBC, CRP, ESR, GFR, ANEU, MG, ADIFF #### [address] [address] Electrolyte Balance 7.0 mEq/L Normal 4.0-15.0 [facility] 1928[facility] ([place]) Comment on above: Performed By: #### B MP, CBC, CRP, ESR, GFR, ANEU, MG, ADIFF #### [address] [address] Glucose [Mass/Vol] 96 mg/dL Normal 83-110 [facility] ([place]) Comment on above: Performed By: #### B MP, CBC, CRP, ESR, GFR, ANEU, MG, ADIFF #### [address] [address] Potassium [Moles/Vol] 4.2 mmol/L Normal 3.5-5.1 [facility] ([place]) Comment on above: Performed By: #### B MP, CBC, CRP, ESR, GFR, ANEU, MG, ADIFF #### [address] [address] Sodium [Moles/Vol] 138 mmol/L Normal 136-145 [facility] ([place]) Comment on above: Performed By: #### B MP, CBC, CRP, ESR, GFR, ANEU, MG, ADIFF #### [address] [address] Urea nitrogen [Mass/Vol] 16 mg/dL Normal 7-18 [facility] ([place]) Comment on above: Performed By: #### B MP, CBC, CRP, ESR, GFR, ANEU, MG, ADIFF #### [address] [address] CBCon 07-26-2023 Erythrocyte distribution width (RBC) [Ratio] 13.9 % Normal 11.5-14.5 [facility] ([place]) Comment on above: Performed By: #### B MP, CBC, CRP, ESR, GFR, ANEU, MG, ADIFF #### [address] [address] Hematocrit (Bld) [Volume fraction] 35.8 % Low 42.0-52.0 [facility] ([place]) Comment on above: Performed By: #### B MP, CBC, CRP, ESR, GFR, ANEU, MG, ADIFF #### [address] [address] Hgb 12.1 G/dL Low 14.0-18.0 [facility] ([place]) Comment on above: Performed By: #### B MP, CBC, CRP, ESR, GFR, ANEU, MG, ADIFF #### [address] [address] MCH (RBC) [Entitic mass] 31.0 pg Normal 27.0-31.2 [facility] ([place]) Comment on above: Performed By: #### B MP, CBC, CRP, ESR, GFR, ANEU, MG, ADIFF #### [address] [address] MCHC 33.7 G/dL Normal 31.8-35.4 [facility] ([place]) Comment on above: Performed By: #### B MP, CBC, CRP, ESR, GFR, ANEU, MG, ADIFF #### [address] [address] MCV (RBC) [Entitic vol] 92.0 fL Normal 80.0-94.0 [facility] ([place]) Comment on above: Performed By: #### B MP, CBC, CRP, ESR, GFR, ANEU, MG, ADIFF #### [address] [address] Platelet 279 10 3/mcL Normal 130-400 [facility] ([place]) Comment on above: Performed By: #### B MP, CBC, CRP, ESR, GFR, ANEU, MG, ADIFF #### [address] [address] Platelet mean volume (Bld) [Entitic vol] 7.5 fL Normal 7.4-10.4 [facility] ([place]) Comment on above: Performed By: #### B MP, CBC, CRP, ESR, GFR, ANEU, MG, ADIFF #### [place] [address] RBC 3.90 10 6/mcL Low 4.04-6.13 [facility] ([place]) Comment on above: Performed By: #### B MP, CBC, CRP, ESR, GFR, ANEU, MG, ADIFF #### [address] [address] WBC 6.2 10 3/mcL Normal 4.6-10.8 [facility] ([place]) Comment on above: Performed By: #### B MP, CBC, CRP, ESR, GFR, ANEU, MG, ADIFF #### [address] [address] CRPon 07-26-2023 C-Reactive Protein 0.4 mg/dL High 0.0-0.3 [facility] ([place]) Comment on above: Performed By: #### B MP, CBC, CRP, ESR, GFR, ANEU, MG, ADIFF #### [address] [address] ESRon 07-26-2023 Erythrocyte Sed Rate 30 mm/hr High 0-20 [facility] ([place]) Comment on above: Performed By: #### B MP, CBC, CRP, ESR, GFR, ANEU, MG, ADIFF #### [address] [address] LABORATORYOrdered By: SYSTEM SYSTEM on 07-26-2023 Basophil, Absolute 0.0 103/mcL Normal 0.0 - 0.2 10^3/mcL AO Workflow SS Basophils/100 WBC (Bld) 0.5 % Normal 0.0 - 2.5 % AO Workflow SS Calcium [Mass/Vol] 8.6 mg/dL Normal 8.4 - 10. 2 mg/dL AO ADM SS Chloride [Moles/Vol] 103 mmol/L Normal 98 - 10 7 mmol/L AO ADM SS CO2 [Moles/Vol] 28 mmol/L Normal 23 - 31 mmol/L AO ADM SS Creatinine [Mass/Vol] 0.69 mg/dL Low 0.70 - 1.30 mg/dL AO ADM SS CRP [Mass/Vol] 0.4 mg/dL High 0.0 - 0.3 mg/dL AO ADM SS Electrolyte Balance 7.0 mEq/L Normal 4.0 - 15 .0 mEq/L AO ADM SS Eosinophil, Absolute 0.3 103/mcL Normal 0.0 - 0 .4 10^3/mcL AO Workflow SS Eosinophils/100 WBC (Bld) 5.3 % Normal 0.0 - 7.0 % AO Workflow SS Erythrocyte distribution width (RBC) [Ratio] 13.9 % Normal 11.5 - 14.5 % AO Workflow SS GFR/1.73 sq M.predicted among blacks MDRD (S/P/Bld) [Vol rate/Area] 137 ml/min/1.73sqm Invalid Interpretation Code AO Chemistry S Comment on above: Interpretive Data: GFR Population mean for , Non- Americans Ages 20-29 = 116 mL/min/1.73 sq.m. Ages 30-39 = 107 mL/min/1.73 sq.m. Ages 40-49 = 99 mL/min/1.73 sq.m. Ages 50-59 = 93 mL/min/1.73 sq.m. Ages 60-69 = 85 mL/min/1.73 sq.m. Ages 70+ = 75 mL/min/1.73 sq.m. Chronic Kidney Disease: Less than 60 mL/min/1.73 square meters End Stage Renal Disease: Less than 15 mL/min/1.73 square meters GFR/1.73 sq M.predicted among non-blacks MDRD (S/P/Bld) [Vol rate/Area] 113 ml/min/1.73sqm Invalid Interpretation Code AO Chemistry S Comment on above: Interpretive Data: GFR Population mean for , Non- Americans Ages 20-29 = 116 mL/min/1.73 sq.m. Ages 30-39 = 107 mL/min/1.73 sq.m. Ages 40-49 = 99 mL/min/1.73 sq.m. Ages 50-59 = 93 mL/min/1.73 sq.m. Ages 60-69 = 85 mL/min/1.73 sq.m. Ages 70+ = 75 mL/min/1.73 sq.m. Chronic Kidney Disease: Less than 60 mL/min/1.73 square meters End Stage Renal Disease: Less than 15 mL/min/1.73 square meters Glucose [Mass/Vol] 96 mg/dL Normal 83 - 110 mg/dL AO ADM SS Hematocrit (Bld) [Volume fraction] 35.8 % Low 42.0 - 52.0 % AO Workflow SS Hemoglobin (Bld) [Mass/Vol] 12.1 G/dL Low 14.0 - 18.0 G/dL AO Workflow SS Lymphocyte, Absolute 2.1 103/mcL Normal 0.8 - 3 .9 10^3/mcL AO Workflow SS Lymphocytes/100 WBC (Bld) 33.1 % Normal 10.0 - 50.0 % AO Workflow SS Magnesium [Mass/Vol] 1.8 mg/dL Normal 1.8 - 2 .4 mg/dL AO ADM SS MCH (RBC) [Entitic mass] 31.0 pg Normal 27.0 - 31.2 pg AO Workflow SS MCHC 33.7 G/dL Normal 31.8 - 35.4 G/dL AO Workflow SS MCV (RBC) [Entitic vol] 92.0 fL Normal 80.0 - 94.0 fL AO Workflow SS Monocyte, Absolute 0.7 103/mcL Normal 0.2 - 1.0 10^3/mcL AO Workflow SS Monocytes/100 WBC (Bld) 10.8 % Normal 1.7 - 13.0 % AO Workflow SS Neutrophil, Absolute 3.1 103/mcL Normal 2.9 - 6 .2 10^3/mcL AO Workflow SS Neutrophils/100 WBC (Bld) 50.3 % Normal 37.0 - 80.0 % AO Workflow SS Platelet mean volume (Bld) [Entitic vol] 7.5 fL Normal 7.4 - 10.4 fL AO Workflow SS Platelets (Bld) [#/Vol] 279 103/mcL Normal 130 - 400 10^3/mcL AO Workflow SS Potassium [Moles/Vol] 4.2 mmol/L Normal 3.5 - 5.1 mmol/L AO ADM SS RBC (Bld) [#/Vol] 3.90 106/mcL Low 4.04 - 6.1 3 10^6/mcL AO Workflow SS Sodium [Moles/Vol] 138 mmol/L Normal 136 - 145 mmol/L AO ADM SS Urea nitrogen [Mass/Vol] 16 mg/dL Normal 7 - 18 mg/dL AO ADM SS Urea nitrogen/Creatinine [Mass ratio] 23 ratio Normal 7 - 27 ratio AO ADM SS WBC (Bld) [#/Vol] 6.2 103/mcL Normal 4.6 - 10.8 10^3/mcL AO Workflow SS LABORATORYOrdered By: Farrah Flemingus on 07-26-2023 ESR Photometric method (Bld) [Velocity] 30 mm/hr High 0 - 20 mm/hr AO Man Heme SS MGon 07-26-2023 Magnesium [Mass/Vol] 1.8 mg/dL Normal 1.8-2.4 [facility] ([place]) Comment on above: Performed By: #### B MP, CBC, CRP, ESR, GFR, ANEU, MG, ADIFF #### [address] [address] MRI KNEE W/O CONTRAST LEFTon 07-26-2023 MRI KNEE W/O CONTRAST LEFT ORIGINAL EXAMINATION: MRI OF THE LEFT KNEE WITHOUT CONTRAST 07/26/2023 10:24 am TECHNIQUE: Multiplanar multisequence MRI of the left knee was performed without the administration of intravenous contrast. COMPARISON: None. HISTORY: ORDERING SYSTEM PROVIDED HISTORY: Reason for Exam: left knee pain . Swelling. No reported trauma FINDINGS: Increased signal noted in the anterior cruciate ligament. The posterior cruciate ligament is grossly unremarkable. The medial collateral ligament, lateral collateral ligament and iliotibial band are intact. Mild thinning of the lateral tibiofemoral cartilage noted. Complex tearing is seen of the anterior horn and body of the lateral meniscus. Discoid configuration noted of the medial meniscus. Moderate attenuation of the medial tibiofemoral cartilage. No medial meniscus tear. Increased signal noted of the patellar tendon. The quadriceps tendon is normal. Fluid signal noted in the anterior patella. Moderate to high-grade patellofemoral cartilage loss seen. There is lateral tilt of the patella. A moderate joint effusion seen. A small Jean-Baptiste's cyst is identified. Edema seen in the popliteus muscle. Popliteus tendon, pes anserine tendons and conjoined tendon are intact. Prominent subchondral edema is noted near the tibial spines and lateral plateau of the tibia. No visible fracture lines seen. Mild edema noted near the anterior aspect of the medial femoral condyle/trochlea IMPRESSION: Prominent edema involving the tibial spines and lateral plateau of the tibia without a definite fracture line. There may be a subchondral cyst in this region. With further concern, CT may be obtained Complex degenerative tearing involving the anterior horn and body of the lateral meniscus Prominent degenerative signal in the anterior cruciate ligament Multifocal cartilage loss is most severe in the patellofemoral compartment Moderate joint effusion Edema in the popliteus muscle could relate to a strain Tendinosis of the patellar tendon. Nonspecific subchondral edema noted in the anterior patella Small Jean-Baptiste's cyst Interpreted by: Angus Luis MD Preliminary Report By: Angus Luis MD Electronically signed By Angus Luis MD Dictated Date: 07/26/2023 12:30:25 PM Prelim Date: 07/26/2023 12:44:43 PM Sign Date: 07/26/2023 12:44:43 PM Ordering Provider: SABRINA NIXON [facility]) XR KNEE 1 OR 2 VIEWS LEFTon 07-25-2023 XR KNEE 1 OR 2 VIEWS LEFT ORIGINAL EXAMINATION: TWO XRAY VIEWS OF THE LEFT KNEE 07/25/2023 1:06 pm COMPARISON: June 16, 2021 HISTORY: ORDERING SYSTEM PROVIDED HISTORY: Reason for Exam: Pain FINDINGS: No bone, joint or soft tissue abnormality identified. IMPRESSION: No acute finding seen. Interpreted by: Yara Acosta MD Preliminary Report By: Yara Acosta MD Electronically signed By Yara Acosta MD Dictated Date: 07/25/2023 1:13:44 PM Prelim Date: 07/25/2023 1:14:13 PM Sign Date: 07/25/2023 1:14:13 PM Ordering Provider: TALIB LUCAS [facility]) Anaerobic cultureOrdered By: Rena Calixto on 07-14-2023 Bacteria identified Anaer cx Nom (Unsp spec) No anaerobic bacteria isolated. [facility] Bacteria identified Cx Nom ( Wound)Ordered By: Rena Calixto on 07-14-2023 Wound Culture Pseudomonas aeruginosa [facility] Fungus cultureOrdered By: Wanda Calixto on 07-14-2023 Fungus identified Cx Nom (Unsp spec) [facility] Gram stain for investigation of transfusion reactionOrdered By: Rena Calixto on 07-14-2023 Microscopic observation Gram stain Nom (Unsp spec) [facility] Absolute lymphocyte countOrd ered By: Aurora Aceves on 06-09-2023 Lymphocytes Auto (Unsp spec) [#/Vol] 1.82 10*3/uL 0.83-4.51 [facility] Basophil percentageOrdered B y: Aurora Aceves on 06-09-2023 Basophils/100 WBC (Bld) 0.3 % 0-1 [facility] Bilirubin [Mass/Vol] 0.60 mg/dL 0.20-1.00 [facility] Comment on above: For patients on eltr ombopag therapy, use of Dimension [place] TBIL is not recommended. Chloride [Moles/Vol] 102 mmol/L 98-107 [facility] Eosinophils/100 WBC (Bld) 1.4 % 0-5 [facility] Glucose [Mass/Vol] 94 mg/dL 74-106 [facility] Neutrophils (Bld) [#/Vol] 7.0 10*3/uL 2.0-7.7 [facility] Neutrophils/100 WBC (Bld) 72.6 % 47-70 [facility] Potassium [Moles/Vol] 4.1 mmol/L 3.5-5.1 [facility] Protein [Mass/Vol] 8.1 g/dL 6.4-8.2 [facility] Sodium [Moles/Vol] 135 mmol/L 136-145 [facility] WBC (Bld) [#/Vol] 9.7 10*3/uL 4.4-11.0 [facility] Bilirubin Test strip Ql (U)O rdered By: Aurora Aceves on 06-09-2023 Bilirubin Ql (U) Negative Negative [facility] Blood erythrocytes count (nu mber/volume)Ordered By: Aurora Aceves on 06-09-2023 RBC (Bld) [#/Vol] 4.47 10*6/uL 4.6-6.2 [facility] Blood hemoglobin measurement (mass/volume)Ordered By: Aurora Aceves on 06-09-2023 Hemoglobin (Bld) [Mass/Vol] 13.7 g/dL 13.0-16.5 [facility] Blood lymphocytes/100 leukoc ytesOrdered By: Aurora Aceves on 06-09-2023 Lymphocytes/100 WBC (Bld) 18.8 % 19-41 [facility] Blood monocytes/100 leukocyt esOrdered By: Aurorabryan Aceves on 06-09-2023 Monocytes/100 WBC (Bld) 6.6 % 0-10 [facility] Blood platelet mean volumeOr dered By: Aurora Aceves on 06-09-2023 Platelet mean volume (Bld) [Entitic vol] 9.7 fL 6.2-12.0 [facility] Determination of erythrocyte mean corpuscular volume (MCV)Ordered By: Aurora Aceves on 06-09-2023 MCV (RBC) [Entitic vol] 94.4 fL 80-94 [facility] Hematocrit Auto (Bld) [Volum e fraction]Ordered By: Aurora Aceves on 06-09-2023 Hematocrit (Bld) [Volume fraction] 42.2 % 40-54 [facility] Ketones Test strip Ql (U)Ord ered By: Aurora Aceves on 06-09-2023 Ketones Ql (U) Negative Negative [facility] Laboratory - Chemistry and C hemistry - challengeOrdered By: Aurora Aceves on 06-09-2023 ALP [Catalytic activity/Vol] 157 U/L 45-117 [facility] ALT [Catalytic activity/Vol] 35 U/L 16-61 [facility] CO2 [Moles/Vol] 25.0 mmol/L 21.0-32.0 [facility] Globulin (S) [Mass/Vol] 4.7 g/dL 2.2-4.2 [facility] Urea nitrogen/Creatinine [Mass ratio] 35.1 mg/mg 10-20 [facility] Laboratory - Hematology and Cell countsOrdered By: Aurora Aceves on 06-09-2023 Erythrocyte distribution width (RBC) [Entitic vol] 47.8 fL 35.1-43.9 [facility] Erythrocyte distribution width (RBC) [Ratio] 13.7 % 11.6-14.6 [facility] Immature granulocytes/100 WBC (Bld) 0.300 % 0.0-0.9 [facility] Comment on above: IG% - Immature Granu locytes (promyelocytes, myelocytes and metamyelocytes) > 1% indicates that a LEFT SHIFT is Present. MCH (RBC) [Entitic mass] 30.6 pg 27.0-32.0 [facility] Nucleated RBC/100 WBC (Bld) [Ratio] 0 % 0-5 [facility] MCHC Auto (RBC) [Mass/Vol]Or dered By: Aurora Aceves on 06-09-2023 MCHC (RBC) [Mass/Vol] 32.5 g/dL 32-36 [facility] Nitrite Test strip Ql (U)Ord ered By: Aurora Aceves on 06-09-2023 Nitrite Ql (U) Positive Negative [facility] No Panel InformationOrdered By: Aurora Aceves on 06-09-2023 Estimated GFR (MDRD) Amer 181 mL/min >60 [facility] Comment on above: GFR Calc Estimated GFR (MDRD) Non-Af Amer 149 mL/min >60 [facility] Comment on above: Non- GFR Calc Platelets bldOrdered By: Gian Aceves on 06-09-2023 Platelets (Bld) [#/Vol] 362 10*3/uL 150-450 [facility] Protein Test strip Ql (U)Ord ered By: Aurora Aceves on 06-09-2023 Protein Ql (U) Negative Negative [facility] Serum or plasma albumin elma urement (mass/volume)Ordered By: Aurora Aceves on 06-09-2023 Albumin [Mass/Vol] 3.4 g/dL 3.2-5.0 [facility] Serum or plasma albumin/glob ulin mass ratioOrdered By: Aurora Aceves on 06-09-2023 Albumin/Globulin [Mass ratio] 0.7 {ratio} 0.9-2.4 [facility] Serum or plasma calcium elma urement (mass/volume)Ordered By: Aurora Aceves on 06-09-2023 Calcium [Mass/Vol] 9.3 mg/dL 8.5-10.1 [facility] Serum or plasma creatinine m easurement (mass/volume)Ordered By: Aurora Aceves on 06-09-2023 Creatinine [Mass/Vol] 0.57 mg/dL 0.70-1.30 [facility] Comment on above: The validity of the calculated GFR & GFRAA in patients over 70 years has not been determined. Clinical correlation is essential. Serum or plasma urea nitroge n measurement (mass/volume)Ordered By: Aurora Aceves on 06-09-2023 Urea nitrogen [Mass/Vol] 20 mg/dL -18 [facility] Thin prep Papanicolaou smear with manual screeningOrdered By: Aurora Aceves on 06-09-2023 Thin prep Papanicolaou smear with manual screening 30 U/L 15-37 [facility] Thin prep Papanicolaou smear with manual screening 8 5-15 [facility] Urine blood detectionOrdered By: Aurora Aceves on 06-09-2023 RBC Ql (U) 25 /ul Negative [facility] Urine clarityOrdered By: Gian Aceves on 06-09-2023 Clarity (U) Clear Clear [facility] Urine color determinationOrd ered By: Aurora Aceves on 06-09-2023 Color (U) Yellow Yellow [facility] Urine glucose detectionOrder ed By: Aurora Aceves on 06-09-2023 Glucose Ql (U) Normal mg/dl Normal [facility] Urine leukocyte esterase det ection by dipstickOrdered By: Aurora Aceves on 06-09-2023 Leukocyte esterase Test strip Ql (U) 500 /ul Negative [facility] Urine pHOrdered By: Aurora Aceves on 06-09-2023 pH (U) 6.0 [pH] 5.0 - 8.0 [facility] Urine specific gravity measu rementOrdered By: Aurora Aceves on 06-09-2023 Specific gravity (U) [Rel density] 1.015 1.002-1.030 [facility] Urobilinogen Auto test strip Ql (U)Ordered By: Aurora Aceves on 06-09-2023 Urobilinogen Ql (U) Normal mg/dl Normal [facility] Basophil percentageOrdered B y: Brandt Pang on 05-19-2023 Chloride [Moles/Vol] 97 mmol/L 98-107 [facility] Glucose [Mass/Vol] 95 mg/dL 74-106 [facility] Potassium [Moles/Vol] 4.0 mmol/L 3.5-5.1 [facility] Sodium [Moles/Vol] 131 mmol/L 136-145 [facility] WBC (Bld) [#/Vol] 9.3 10*3/uL 4.4-11.0 [facility] Blood erythrocytes count (nu mber/volume)Ordered By: Brandt Pang on 05-19-2023 RBC (Bld) [#/Vol] 4.46 10*6/uL 4.6-6.2 [facility] Blood hemoglobin measurement (mass/volume)Ordered By: Brandt Pang on 05-19-2023 Hemoglobin (Bld) [Mass/Vol] 13.7 g/dL 13.0-16.5 [facility] Blood platelet mean volumeOr dered By: Brandt Pang on 05-19-2023 Platelet mean volume (Bld) [Entitic vol] 9.4 fL 6.2-12.0 [facility] Determination of erythrocyte mean corpuscular volume (MCV)Ordered By: Brandt Pang on 05-19-2023 MCV (RBC) [Entitic vol] 92.6 fL 80-94 [facility] Hematocrit Auto (Bld) [Volum e fraction]Ordered By: Brandt Pang on 05-19-2023 Hematocrit (Bld) [Volume fraction] 41.3 % 40-54 [facility] Laboratory - Chemistry and C hemistry - challengeOrdered By: Brandt Pang on 05-19-2023 CO2 [Moles/Vol] 27.0 mmol/L 21.0-32.0 [facility] Urea nitrogen/Creatinine [Mass ratio] 34.5 mg/mg 10-20 [facility] Laboratory - Hematology and Cell countsOrdered By: Brandt Pang on 05-19-2023 Erythrocyte distribution width (RBC) [Entitic vol] 45.3 fL 35.1-43.9 [facility] Erythrocyte distribution width (RBC) [Ratio] 13.3 % 11.6-14.6 [facility] MCH (RBC) [Entitic mass] 30.7 pg 27.0-32.0 [facility] MCHC Auto (RBC) [Mass/Vol]Or dered By: Brandt Pang on 05-19-2023 MCHC (RBC) [Mass/Vol] 33.2 g/dL 32-36 [facility] No Panel InformationOrdered By: Brandt Pang on 05-19-2023 Estimated Creatinine Clearance Calc 71.12 ml/min [facility] Estimated GFR (MDRD) Amer 229 mL/min >60 [facility] Comment on above: GFR Calc Estimated GFR (MDRD) Non-Af Amer 189 mL/min >60 [facility] Comment on above: Non- GFR Calc Platelets bldOrdered By: Disha Pang on 05-19-2023 Platelets (Bld) [#/Vol] 326 10*3/uL 150-450 [facility] Serum or plasma calcium elma urement (mass/volume)Ordered By: Brandt Pang on 05-19-2023 Calcium [Mass/Vol] 9.6 mg/dL 8.5-10.1 [facility] Serum or plasma creatinine m easurement (mass/volume)Ordered By: Brandt Pang on 05-19-2023 Creatinine [Mass/Vol] 0.46 mg/dL 0.70-1.30 [facility] Comment on above: The validity of the calculated GFR & GFRAA in patients over 70 years has not been determined. Clinical correlation is essential. Serum or plasma urea nitroge n measurement (mass/volume)Ordered By: Brandt Pang on 05-19-2023 Urea nitrogen [Mass/Vol] 16 mg/dL 7-18 [facility] Thin prep Papanicolaou smear with manual screeningOrdered By: Brandt Pang on 05-19-2023 Thin prep Papanicolaou smear with manual screening 7 5-[address] [facility] [address] HEAD OR BRAIN W/O CONTRAS Ton 05-15-2023 CT HEAD OR BRAIN W/O CONTRAST ORIGINAL EXAMINATION: CT OF THE HEAD WITHOUT CONTRAST 05/15/2023 3:10 pm TECHNIQUE: CT of the head was performed without the administration of intravenous contrast. Automated exposure control, iterative reconstruction, and/or weight based adjustment of the mA/kV was utilized to reduce the radiation dose to as low as reasonably achievable. COMPARISON: 02/19/2021 HISTORY: ORDERING SYSTEM PROVIDED HISTORY: Reason for Exam: PT FELL AND STRUCK POST HEAD REGION. POST HEAD LAC/SWELLING. HX SPINAL STENOSIS. LIMITED MOBILITY ON LEGS/WEAKNESS. DENIES LOC, DENIES NEURO HX. TAKES ASPIRIN DAILY fall FINDINGS: There is no acute intracranial hemorrhage, mass, mass effect or abnormal extra-axial fluid collection. There is no CT evidence of acute infarct. The density in the larger dural venous sinuses is grossly normal. Scattered parenchymal hypodensities in the cerebral white matter are nonspecific but statistically most consistent with mild chronic microvascular angiopathy. Atherosclerotic calcifications are present in the cavernous carotid arteries bilaterally. There is proportionate enlargement of the ventricular system and cortical sulci compatible with parenchymal volume loss. Lacunar type defects in the bilateral thalamus and bilateral basal ganglia regions are similar to the prior study. The skull base and calvarium demonstrate no abnormality. The paranasal sinuses are clear. Included mastoid air cells are clear. Posterior left parietal scalp contusion/laceration seen. IMPRESSION: Scalp laceration/contusion. 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 This exam was performed according to our departmental dose optimization program, and includes the following measures where applicable: automated exposure control, adjustment of the mAs and/or kVp according to patient size and/or exam, and an iterative reconstruction algorithm. FINDINGS: There are no acute fractures or dislocations. There is straightening of the upper cervical lordosis. The individual vertebral bodies are intact. The prevertebral soft tissues are unremarkable in appearance. IMPRESSION: No acute fracture. Interpreted by: Kevin Gaxiola MD Preliminary Report By: Kevin Gaxiola MD Electronically signed By Kevin Gaxiola MD Dictated Date: 05/15/2023 3:29:26 PM Prelim Date: 05/15/2023 3:30:36 PM Sign Date: 05/15/2023 3:30:36 PM Ordering Provider: [facility] [place] Basophil percentageOrdered B y: Brandt Pang on 04-15-2023 Chloride [Moles/Vol] 99 mmol/L 98-107 [facility] Glucose [Mass/Vol] 90 mg/dL 74-106 [facility] Potassium [Moles/Vol] 4.1 mmol/L 3.5-5.1 [facility] Sodium [Moles/Vol] 133 mmol/L 136-145 [facility] WBC (Bld) [#/Vol] 9.7 10*3/uL 4.4-11.0 [facility] Blood erythrocytes count (nu mber/volume)Ordered By: Brandtmichelle Pang on 04-15-2023 RBC (Bld) [#/Vol] 4.49 10*6/uL 4.6-6.2 [facility] Blood hemoglobin measurement (mass/volume)Ordered By: Brandt Pang on 04-15-2023 Hemoglobin (Bld) [Mass/Vol] 13.9 g/dL 13.0-16.5 [facility] Blood platelet mean volumeOr dered By: Brandt Pang on 04-15-2023 Platelet mean volume (Bld) [Entitic vol] 9.1 fL 6.2-12.0 [facility] Determination of erythrocyte mean corpuscular volume (MCV)Ordered By: Brandt Pang on 04-15-2023 MCV (RBC) [Entitic vol] 93.5 fL 80-94 [facility] Hematocrit Auto (Bld) [Volum e fraction]Ordered By: Brandtmichelle Pang on 04-15-2023 Hematocrit (Bld) [Volume fraction] 42.0 % 40-54 [facility] Laboratory - Chemistry and C hemistry - challengeOrdered By: Brandt Pang on 04-15-2023 CO2 [Moles/Vol] 28.0 mmol/L 21.0-32.0 [facility] Urea nitrogen/Creatinine [Mass ratio] 42.4 mg/mg 10-20 [facility] Laboratory - Hematology and Cell countsOrdered By: Brandt Pang on 04-15-2023 Erythrocyte distribution width (RBC) [Entitic vol] 45.8 fL 35.1-43.9 [facility] Erythrocyte distribution width (RBC) [Ratio] 13.4 % 11.6-14.6 [facility] MCH (RBC) [Entitic mass] 31.0 pg 27.0-32.0 [facility] MCHC Auto (RBC) [Mass/Vol]Or dered By: Brandt Pang on 04-15-2023 MCHC (RBC) [Mass/Vol] 33.1 g/dL 32-36 [facility] No Panel InformationOrdered By: Brandt Pang on 04-15-2023 Estimated Creatinine Clearance Calc 71.12 ml/min [facility] Estimated GFR (MDRD) Amer 212 mL/min >60 [facility] Comment on above: GFR Calc Estimated GFR (MDRD) Non-Af Amer 176 mL/min >60 [facility] Comment on above: Non- GFR Calc Platelets bldOrdered By: Disha Pang on 04-15-2023 Platelets (Bld) [#/Vol] 297 10*3/uL 150-450 [facility] Serum or plasma calcium elma urement (mass/volume)Ordered By: Brandt Pang on 04-15-2023 Calcium [Mass/Vol] 9.3 mg/dL 8.5-10.1 [facility] Serum or plasma creatinine m easurement (mass/volume)Ordered By: Brandt Pang on 04-15-2023 Creatinine [Mass/Vol] 0.50 mg/dL 0.70-1.30 [facility] Comment on above: The validity of the calculated GFR & GFRAA in patients over 70 years has not been determined. Clinical correlation is essential. Serum or plasma urea nitroge n measurement (mass/volume)Ordered By: Brandt Pang on 04-15-2023 Urea nitrogen [Mass/Vol] 21 mg/dL 7-18 [facility] Thin prep Papanicolaou smear with manual screeningOrdered By: Brandt Pang on 04-15-2023 Thin prep Papanicolaou smear with manual screening 6 5-15 [facility] CNOVon 06-03-2021 CNOV Office Visit ([place] ) -------- TAM WALSH ([id number]) 1950 M Date Time Provider Department 06/03/21 11:00 AM SYED PORRAS During your visit today, we recorded the following information about you: Temperature Pulse Blood pressure Weight 97.6 degrees 84/minute 129/84 93.9 kg Height 1.778 m Syed Porras MD 06/03/2021 11:04 AM Signed NEUROSURGERY FOLLOW UP OFFICE NOTE Syed Porras MD Date of visit: June 03, 2021 Patient Name: Mr.Mark Billy Walsh Date of : 1950 Current Age: [age] year old Sex: male MRN/E# [id number] Last Office Visit: Visit date not found Chief Complaint: Patient presents with: Established Patient SUBJECTIVE: Mr. Walsh presents to the office today for a routine follow up visit with imaging following a lumbar re-exploration, removal of hardware (pedicle screws at L5 AND cross-link between L4/L5), L4-?S1 TLIF with PSF on 02/22/2020. He was last seen on 07/26/2020 and noted continued right lower extremity weakness. He continued home exercises and was having gradual improvement. X-rays of the lumbar spine were reviewed and were satisfactory. He was asked to follow up in 6 months for routine x-rays and follow up, prompting his visit today. Today he states overall he continues to slowly improve. He had a setback this summer in which he fell and broke his left foot AND ankle. He continues to do home exercises and is pleased with this progress. He denies low back or leg pain. He presents for evaluation and plan of care. Symptoms: bilateral lower extremity weakness PREVIOUS CONSERVATIVE TREATMENTS: Physical therapy Home exercise ? PREVIOUS SURGERY: SURGERY #3:?lumbar re-exploration, removal of hardware (pedicle screws at L5 AND cross-link between L4/L5), L4-?S1 TLIF with PSF on 02/22/2020 ? SURGERY #2:?L1-L3 laminectomy, T11-L3 fusion on 12/18/[address] Oscar Gauthier and Brenton Mccabe ? ? SURGERY #1:?L3-5 decompression fusion in?09/[address] Brenton Mccabe PAIN EVALUATION No data found in the last 1 encounters. PAST MEDICAL HISTORY Diagnosis Date - Amblyopia - Ankle fracture 01/21/2021 left - Lumbar stenosis - Pseudophakia, both eyes - Spondylosis with myelopathy, lumbar region PAST SURGICAL HISTORY Procedure Laterality Date - BACK SURGERY HX 12/17/2015 L3-5 lami, T11-L3 fusion by Drs. Oscar Gauthier and Brenton Mccabe - BACK SURGERY HX 09/2014 L3-5 decompression, fusion by Dr. Mccabe - CATARACT EXTRACTION W/ INTRAOCULAR LENS IMPLANT HX Right 08/05/2017 Dr. Morejon - CATARACT EXTRACTION W/ INTRAOCULAR LENS IMPLANT HX Left 08/12/2017 Dr. Morejon - HAND SURGERY HX Left 1973 FAMILY HISTORY Problem Relation Age of Onset - Cataract Mother - Ovarian cancer Mother - Diabetes Paternal Grandfather - other (SOFT TISSUE SARCOMA) Father ALLERGIES No Known Allergies Current Outpatient Medications Medication Sig Dispense Refill - pravastatin (PRAVACHOL) 10 mg tablet - levothyroxine (SYNTHROID) 25 mcg tablet - triamterene-hydroCHLOROt hiazide (MAXZIDE-25) 37.5-25 mg per tablet Take 1 tablet by mouth once daily. - aspirin 325 mg cap Take 1 capsule by mouth once daily. - acetaminophen (TYLENOL EXTRA STRENGTH) 500 mg tablet Take 500 mg by mouth every 8 hours as needed. - ibuprofen (ADVIL) 200 mg tablet Take 200 mg by mouth every 6 hours as needed. - aspirin (ASPIR-81 ORAL) Take by mouth. - multivit-min/FA/lycopen/ lutein (CENTRUM SILVER MEN ORAL) Take by mouth. - pantoprazole DR (PROTONIX) 40 mg tablet Take 40 mg by mouth once daily. - VITAMIN B COMPLEX (B-COMPLEX ORAL) Take by mouth once daily. - polyethylene glycol 3350 (MIRALAX, GLYCOLAX) 17 gram packet Take 1 Packet by mouth once daily as needed. (Patient not taking: Reported on 06/03/2021 ) - fluticasone (FLONASE ALLERGY RELIEF) 50 mcg/actuation nasal spray Use 1 Disputanta in each nostril once daily. (Patient not taking: Reported on 06/03/2021 ) - PEG 400-propylene glycol (SYSTANE ULTRA) 0.4-0.3 % ophthalmic solution Use in both eyes as needed. (Patient not taking: Reported on 06/03/2021 ) - diphenhydrAMINE (ZZZQUIL) 25 mg capsule Take 25 mg by mouth at bedtime as needed. (Patient not taking: Reported on 06/03/2021 ) No current facility-administered medications for this visit. REVIEW OF SYSTEMS Review of Systems Constitutional: Negative for chills, diaphoresis and fever. HENT: Positive for postnasal drip. Negative for congestion, ear pain and sinus pressure. Eyes: Negative for discharge and redness. Respiratory: Negative for cough, shortness of breath and wheezing. Cardiovascular: Positive for leg swelling. Negative for chest pain and palpitations. Gastrointestinal: Positive for diarrhea. Negative for constipation and nausea. Endocrine: Negative for cold intolerance and heat intolerance. Genitourinary: Negative for difficul (more content not included)... Normal [facility] XR LUMBAR 2V AP/LATon 2020 XR LUMBAR 2V AP/LAT * * *Final Report* * * DATE OF EXAM: Jun 03 2021 10:37AM A1X 5229 - XR LUMBAR 2V AP/LAT / PROCEDURE REASON: Lumbar spondylosis * * * * Physician Interpretation * * * * EXAM: LUMBAR SPINE, 2 VIEWS CLINICAL: 70-year-old male with lumbar spondylosis status post surgery TECHNIQUE: AP, lateral COMPARISON: 07/26/2020 RESULTS: Counting reference: Anatomic Variant: None. L4-5 is considered the level of the iliac crest and assume there are 5 lumbar-type vertebrae. Status post T11-S1 posterior pedicle screw and libertad fixation. There is a gap in the posterior at the level of L4/L5 disc. Interbody fusion at L3/L4 through L5/S1. L4 is fused and grade 1 anterolisthesis relation L5. Status post L5 laminectomy. IMPRESSION: STATUS POST L1-L5 AND L3/L4 THROUGH L5/S1 POSTERIOR FUSION AND MULTIPLE LEVELS UNCHANGED COMPARED TO THE PREVIOUS EXAM. 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 Transcribe Date/Time: Jun 06 2021 12:26P Dictated by : RASHMI CARRERA MD This examination was interpreted and the report reviewed and electronically signed by: RASHMI CARRERA MD on Jun 06 2021 12:32PM EST [id number] Normal [facility] CNOVon 07-26-2020 CNOV Office Visit ([place] ) -------- TAM WALSH ([id number]) 1950 M Date Time Provider Department 07/26/20 11:15 AM SYED PORRAS During your visit today, we recorded the following information about you: Temperature 97 degrees Syed Porras MD 07/26/2020 12:05 PM Signed NEUROSURGERY FOLLOW UP OFFICE NOTE Syed Porras MD Date of visit: July 26, 2020 Patient Name: Mr.Mark Billy Walsh Date of : 1950 Current Age: [age] year old Sex: male MRN/E# [id number] Last Office Visit: 04/26/2020 Chief Complaint: Patient presents with: Follow Up Tests Results SUBJECTIVE: Mr. Walsh presents to the office today for a routine follow up visit with imaging following a lumbar re-exploration, removal of hardware (pedicle screws at L5 AND cross-link between L4/L5), L4-?S1 TLIF with PSF on 02/22/2020. He was last seen on 04/26/2020 by Qian Richardson CNP and noted some continued right lower extremity weakness. It was recommended that he continue to work with physical therapy and return in 3 months with xrays, prompting his visit today. Today he states symptoms are basically unchanged. He is doing home exercises with bands and has an exercise bike. Improvement is gradual. He presents for image review, evaluation and plan of care. Symptoms: low back pain, bilateral lower extremity weakness, right lateral leg pain? PREVIOUS CONSERVATIVE TREATMENTS: Physical therapy PREVIOUS SURGERY: SURGERY #3:?lumbar re-exploration, removal of hardware (pedicle screws at L5 AND cross-link between L4/L5), L4-?S1 TLIF with PSF on 02/22/2020 SURGERY #2:?L1-L3 laminectomy, T11-L3 fusion on 12/18/[address] Oscar Gauthier and Brenton Mccabe ? ? SURGERY #1:?L3-5 decompression fusion in?09/[address] Brenton Mccabe ? PAIN EVALUATION No data found in the last 1 encounters. PAST MEDICAL HISTORY Diagnosis Date - Amblyopia - Lumbar stenosis - Pseudophakia, both eyes - Spondylosis with myelopathy, lumbar region PAST SURGICAL HISTORY Procedure Laterality Date - BACK SURGERY HX 12/17/2015 L3-5 lami, T11-L3 fusion by Drs. Oscar Gauthier and Brenton Mccabe - BACK SURGERY HX 09/2014 L3-5 decompression, fusion by Dr. Mccabe - CATARACT EXTRACTION W/ INTRAOCULAR LENS IMPLANT HX Right 08/05/2017 Dr. Morejon - CATARACT EXTRACTION W/ INTRAOCULAR LENS IMPLANT HX Left 08/12/2017 Dr. Morejon - HAND SURGERY HX Left 1974 FAMILY HISTORY Problem Relation Age of Onset - Cataract Mother - Ovarian cancer Mother - Diabetes Paternal Grandfather - other (SOFT TISSUE SARCOMA) Father ALLERGIES No Known Allergies Current Outpatient Medications Medication Sig Dispense Refill - aspirin (ASPIR-81 ORAL) Take by mouth. - multivit-min/FA/lycopen/ lutein (CENTRUM SILVER MEN ORAL) Take by mouth. - polyethylene glycol 3350 (MIRALAX, GLYCOLAX) 17 gram packet Take 1 Packet by mouth once daily as needed. - fluticasone (FLONASE ALLERGY RELIEF) 50 mcg/actuation nasal spray Use 1 Disputanta in each nostril once daily. - PEG 400-propylene glycol (SYSTANE ULTRA) 0.4-0.3 % ophthalmic solution Use in both eyes as needed. - pantoprazole DR (PROTONIX) 40 mg tablet Take 40 mg by mouth once daily. - diphenhydrAMINE (ZZZQUIL) 25 mg capsule Take 25 mg by mouth at bedtime as needed. - VITAMIN B COMPLEX (B-COMPLEX ORAL) Take by mouth once daily. No current facility-administered medications for this visit. REVIEW OF SYSTEMS Review of Systems Constitutional: Negative for chills, diaphoresis (Negative for night sweats.) and fever. HENT: Negative for ear discharge and rhinorrhea. Eyes: Negative for discharge. Respiratory: Negative for cough, shortness of breath and wheezing. Cardiovascular: Negative for chest pain, palpitations and leg swelling. Gastrointestinal: Negative for constipation, diarrhea, nausea and vomiting. Endocrine: Negative for cold intolerance and heat intolerance. Genitourinary: Negative for frequency. Negative for urinary incontinence and urinary retention. Musculoskeletal: Positive for back pain and gait problem. Negative for joint swelling, myalgias and neck pain. Skin: Negative for rash (Negative for hives and skin lesions.). Allergic/Immunologic: Negative for environmental allergies and food allergies. Negative for contact allergy, seasonal allergies. Neurological: Positive for weakness and numbness (Negative for numbness in extremities.). Negative for dizziness, seizures, syncope, light-headedness and headaches. Hematological: Does not bruise/bleed easily. Psychiatric/Behavioral: The patient is not nervous/anxious. Negative for depression. OBJECTIVE: Temp 97 PHYSICAL EXAM: Mental State : Alert, memory function unremarkable. Attention span and concentration normal for patient's age. Speech normal, no receptive or expressive speech deficit. Recent and remote memory normal. (more content not included)... Normal [facility] XR LUMBAR 2V AP/LATon 2019 XR LUMBAR 2V AP/LAT Final Report DATE OF EXAM: Jul 26 2020 11:12AM A1X 5229 - XR LUMBAR 2V AP/LAT / PROCEDURE REASON: Lumbar spondylosis Physician Interpretation EXAMINATION: XR LUMBAR 2V AP/LAT HISTORY: follow up, back pain, difficulty walking, lower extremity weakness Lumbar spondylosis . TECHNIQUE: XR LUMBAR 2V AP/LAT Laterality: NOT APPLICABLE Number of different views (projections): 2 M: XB_1 COMPARISON: Radiograph 04/26/2020 RESULT: Extensive surgical hardware including pedicle screws and vertical stabilization bars spanning T11-S1. There are also disc spacing devices at L3-S1. Hardware appears intact and unchanged compared to April 2020. There is a 8mm anterolisthesis L4-L5, similar compared to prior. No additional subluxations are seen. Multilevel degenerative disc space narrowing, similar compared to prior. No other significant abnormality. IMPRESSION: Extensive surgical hardware and degenerative changes as detailed above. No radiographic change compared to April 2020. Further follow-up with MRI as clinical symptoms warrant. 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 Transcribe Date/Time: Jul 26 2020 12:44P Dictated by : FRANKLIN BUSTILLO MD This examination was interpreted and the report reviewed and electronically signed by: FRANKLIN BUSTILLO MD on Jul 26 2020 12:51PM EST [facility] ANES Sridevi 08-12-2017 ANES POST HNO ID: [id number]: Jonathan Singhe: AnesthesiologyAuthor Type: AnesthesiologistType: Anesthesia PostOpFiled: 08/12/2017 5:33 PMNote Text:POST ANESTHESIA EVALUATION NOTESERVICE DATE: 08/12/2017SERVICE TIME: 3DOB: 1950Vitals: 08/12/1713Temp: 36.6 ?C (97.9 ?F) 36.6 ?C (97.9 ?F) 08/12/1713BP: 140/84 119/77 132/82 08/12/1713Pulse: 73 69 74 08/12/1713Resp: 18 18 14 08/12/1713SpO2: 100% 98% 99%Validated Vital Signs: YesPOST ANES STATUS: No apparent anesthetic complications. The patient isappropriately hydrated with stable respiratory and cardiovascular status.Patient has safe and adequate airway control. The patient has appropriatepain relief and no significant post operative nausea or vomiting. Thepatient has achieved baseline mental status.Further assessment by Anesthesia Service: NoneOther Remarks:SIGNATURE: Jonathan Meza MD PATIENT NAME: Tam Cervantes EclemDATE: August 12, 2017 : 5:33 PM PAGER/CONTACT #: [phone] [facility] ANES PREOPon 08-12-2017 ANES PREOP HNO ID: [id number]: Jonathan Singhe: AnesthesiologyAuthor Type: AnesthesiologistType: Anesthesia PreOpFiled: 08/12/2017 12:44 PMNote Text: ANESTHESIOLOGY DAY OF SURGERY NOTESERVICE DATE: 08/12/2017SERVICE TIME: 12:44 PMDOB: 1Procedure(s) (LRB):PHACOEMULSIFICATIO N CATARACT IMPLANT INTRAOCULAR LENS (Left)Surgeon(s):Bria MckeonzosEstimated body mass index is 31.38 kg/(m2) as calculated from thefollowing: Height as of this encounter: 180.3 cm (5' 11). Weight as of this encounter: 102.1 kg (225 lb).Most recent hematocrit and potassium results:Hematocrit 36.6 12/19/2015Potassium 4.7 12/19/2015ANES DOS/PREOP NOTE: Vitals: BP: 140/84Pulse: 73Resp: 18Temp: 36.6 ?C (97.9 ?F)TempSrc: OralSpO2: 100%Weight: 102.1 kg (225 lb)Height: 180.3 cm (5' 11)ACTIVE PROBLEM LISTCombined Forms of Age-Related Cataract, BilateralRefractive Amblyopia of Left EyeCombined Forms of Age-Related Cataract of Left EyeExamination Following SurgeryPseudophakia of Right EyeNo past medical history on file.PAST SURGICAL HISTORYProcedure Laterality Date- BACK SURGERY HX- HAND SURGERY HXFAMILY HISTORYProblem Relation Age of Onset- Cataract Mother- Diabetes Paternal GrandfatherSocial History:Social HistorySubstance Use Topics- Smoking status: Never Smoker- Smokeless tobacco: Not on file- Alcohol use NoNo current facility-administered medications on file prior to encounter.Current Outpatient Prescriptions on File Prior to Encounter:diphenhydrAMIN E (ZZZQUIL) 25 mg capsule Take 25 mg by mouth at bedtime asneeded.aspirin 325 mg tablet Take 325 mg by mouth once daily.VITAMIN B COMPLEX (B-COMPLEX ORAL) Take by mouth once daily.FOLIC ACID/MULTIVIT-MIN/LUTEIN (CENTRUM SILVER ORAL) Take by mouth oncedaily.trimethoprim-p olymyxin eye drops (POLYTRIM) ophthalmic solution Use 1 Dropin the right eye four times daily.prednisoLONE acetate (PRED FORTE, ECONOPRED PLUS) 1 % ophthalmicsuspension Use 1 Drop in the right eye four times daily.ipratropium bromide (ATROVENT) 0.06 % nasal spray Use 2 Sprays in the nosetwice daily.ibuprofen (ADVIL) 200 mg tablet Take 400 mg by mouth every 6 hours asneeded. 2 tabetsNAPROXEN SODIUM (ALEVE ORAL) Take 220 mg by mouth as needed.Current Facility-Administered Medications:0.9% NaCl 2-10 mL 2-10 mL INTRAVENOUS q 12 H Bria Mckeonzos 2 mL at110/13/16 1225Allergies: ALLERGIESNo Known AllergiesDOS EXAM: Adequate NPO status: YesAnesthetic risks, benefits, alternatives, personnel and consent discussed:YesPatient agrees to proceed: YesPrevious Anesthesia: No history of adverse event.Airway Assessment: MP 2; Neck ROM: Full ROM without neurologic symptoms;Airway Evaluation: No significant abnormalitiesSymptoms of Sleep Apnea: NoneDentition: Teeth intactAdditional Physical Exam:Lungs: Patient health status unchanged since recent history and physical.See history and physical for exam findings.Cardiac: Patient health status unchanged since recent history andphysical. See history and physical for exam findings.Additional Pertinent Findings: N/ABlood Products: Not anticipated for this procedure.Anesthetic Plan: MACPain Management Plan: Parenteral or OralASA Class: 3Other Medical Problems:Chronic Beta Johnnie medication administered within 24 hours: N/AI have interviewed and examined the patient. I have reviewed the medicalrecord and/or the pre-anesthesia evaluation, pertinent labs, and testresults.Significant changes in the patient's condition since the History andPhysical, not otherwise documented in primary service progress notes: NoThis contains updated information obtained within 48 hours ofSurgery/Procedure.SIGN ATURE: Jonathan Meza MD PATIENT NAME: Tam Cervantes EclemDATE: August 12, 2017 : 12:44 PM CSN: [id number] [facility] BRIEF OP NOTon 08-12-2017 BRIEF OP NOT HNO ID: [id number]: Bria MckeonzosService: OphthalmologyAuthor Type: PhysicianType: Brief Op NoteFiled: 08/12/2017 1:38 PMNote Text:BRIEF OPERATIVE / PROCEDURE NOTELOG ID: [id number]/Procedure Date: 08/12/2017Incision/Proce dure Start Time: 1:23 PMIncision Close/Procedure End Time: 1:35 [address]MSurgeon(s)/[address](s) and Meter Maintenance Person(s):Surgeon(s) and Role: * Bria Morejon - PrimaryNo Additional StaffProcedure(s): Phacoemulsification of cataract with insertion of posteriorchamber intraocular lens, left eyeAnesthesia: Monitored Anesthesia CareFindings: Well dilated eye, combined cataractEstimated Blood Loss: 0 mlSpecimens: NoneComplications: NonePre-Op/Pre-Procedure Diagnosis: Combined 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,left eye [H25.812]Post-Op/Post-Pr ocedure Diagnosis: Combined 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,left eye [H25.812]SIGNATURE: Bria Morejon MD PATIENT NAME: Tam Cervantes EclemDATE: August 12, 2017 : 1:38 PM PAGER/CONTACT #: [facility] HISTORY PHYSICALon HISTORY PHYSICAL HNO ID: [id number]: Bria JiménezsService: OphthalmologyAuthor Type: PhysicianType: HANDPFiled: 08/12/2017 1:18 PMNote Text:UPDATED HISTORY AND PHYSICAL EXAMINATIONSERVICE DATE: 08/12/2017SERVICE TIME: 1:17 PMPHYSICAL EXAM MUST BE COMPLETED ON ADMISSIONThe History and Physical (completed in the past 30 days) has been reviewedand the patient has been examined. The contents accurately reflect thepatient's condition with the following additions or revisions since theHANDP was completed.Examination indicates no changes.This HANDP can be found in the scanned documents dated 07/27/2017.SIGNATURE: Bria Morejon MD PATIENT NAME: Tam Cervantes EclemDATE: August 12, 2017 : 1:17 PM PAGER: [phone] [facility] OPERATIVE NOon 08-12-2017 OPERATIVE NO HNO ID: [id number]: Bria Dos Santoservice: OphthalmologyAuthor Type: PhysicianType: Operative ReportFiled: 08/12/2017 2:23 PMNote Text:OPERATIVE REPORTDATE OF SERVICE: August 12, 2017SURGEON: Bria Morejon MDOPERATION: Phacoemulsification of cataract, insertion of posterior chamberintraocular lens implant, left eye.ANESTHESIA: Topical with monitored anesthesia care.PREOPERATIVE DIAGNOSIS: Combined age related cataract left eyePOSTOPERATIVE DIAGNOSIS: Combined age related cataract left eyeOPERATIVE INDICATIONS: This is a 66 year old male with history ofrefractive amblyopia in the left eye who presented to the clinic withcomplaints of decreased vision and glare from the left eye that interferedwith activities of daily living. Exam revealed a best corrected visualacuity of 20/40 that decreased to 20/70 under low glare testing and amoderate nuclear sclerotic and early posterior subcapsular cataract.Risks, benefits, and alternatives to cataract surgery were reviewed withthe patient, including the limited visual potential of this eye given theamblyopia. The patient appeared to understand and wished to proceed withthe procedure.OPERATIVE PROCEDURE: The patient and site were identified and verified.The patient was taken to the operating room and under monitored anesthesiacare, received 2% lidocaine gel to the left eye. The patient was thenprepped and draped in the usual sterile fashion for intraocular surgery.The operating microscope was brought into position and a lid speculum wasplaced. A paracentesis was created at the 5 o'clock position using aDiamatrix blade, and the anterior chamber was filled with viscoelastic. Atriplanar clear corneal incision was created from the 2 to 3 o'clockposition using a keratome blade. A continuous curvilinear capsulorrhexiswas created using cystotome and Utrata forceps. Gentle hydrodissection wasperformed. The nucleus was successfully removed using phacoemulsificationand residual cortical material was removed using irrigation aspiration.The anterior and posterior capsules were inspected and found to be free ofrents or tears. The bag was filled with viscoelastic and a +24.0 D [id number] was inserted into the bag and positioned. Viscoelastic was removedand the anterior chamber was reformed using balanced salt solution. Thewounds were checked and found to be free of leaks. The patient's eye wasshielded over steroid antibiotic, and he was taken to the postoperativearea having tolerated the procedure well. The patient knows to keep theshield on the eye and refrain from strenuous activity until seen in thee Clinic tomorrow morning.Dr. Morejon performed the entire procedure.Incision/Proce dure Start Time: 1:23 PMIncision Close/Procedure End Time: 1:35 PMCOMPLICATIONS: noneESTIMATED BLOOD LOSS: noneDRAINS: noneSPECIMENS: noneStella Danny Morejon MD [facility] ANE Sridevi 08-05-2017 ANES POST HNO ID: [id number]: Doc Haree: AnesthesiologyAuthor Type: AnesthesiologistType: Anesthesia PostOpFiled: 08/05/2017 1:43 PMNote Text:POST ANESTHESIA EVALUATION NOTESERVICE DATE: 08/05/2017SERVICE TIME: 1:43 PMDOB: 1950Vitals: 08/05/1713Temp: 36.6 ?C (97.9 ?F) 36.7 ?C (98.1 ?F) 08/05/1713P: 148/86 111/80 08/05/1713ulse: 76 80 08/05/1713esp: 16 16 08/05/1713pO2: 95% 96%Validated Vital Signs: YESNo apparent anesthetic complications. The patient is appropriatelyhydrated with stable respiratory and cardiovascular status. Patient hassafe and adequate airway control. The patient has appropriate pain reliefand no significant post operative nausea or vomiting. The patient hasachieved baseline mental status.Further assessment by Anesthesia Service: NoneOther Remarks:SIGNATURE: Doc Moser MD PATIENT NAME: Tam Cervantes EclemDATE: August 05, 2017 : 1:42 PM PAGER/CONTACT #: [phone] [facility] ANE PREOPon 08-05-2017 ANES PREOP HNO ID: [id number]: Doc Jolly: AnesthesiologyAuthor Type: AnesthesiologistType: Anesthesia PreOpFiled: 08/05/2017 12:20 PMNote Text: ANESTHESIOLOGY DAY OF SURGERY NOTESERVICE DATE: 08/05/2017SERVICE TIME: 12:19 PMDOB: 1Procedure(s) (LRB):PHACOEMULSIFICATIO N CATARACT IMPLANT INTRAOCULAR LENS (Right)Surgeon(s):Bria JiménezsEstimated body mass index is 31.38 kg/(m2) as calculated from thefollowing: Height as of this encounter: 180.3 cm (5' 11). Weight as of this encounter: 102.1 kg (225 lb).Most recent hematocrit and potassium results:Hematocrit 36.6 12/19/2015Potassium 4.7 12/19/2015ANES DOS/PREOP NOTE:Vitals: 156BP: 148/86Pulse: 76Resp: 16Temp: 36.6 ?C (97.9 ?F)TempSrc: OralSpO2: 95%Weight: 102.1 kg (225 lb)Height: 180.3 cm (5' 11)ACTIVE PROBLEM LISTCombined Forms of Age-Related Cataract, BilateralRefractive Amblyopia of Left EyeCombined Form of Age-Related Cataract, Right EyeCombined Form of Age-Related Cataract, Left EyeNo past medical history on file.PAST SURGICAL HISTORYProcedure Laterality Date- BACK SURGERY HX- HAND SURGERY HXFAMILY HISTORYProblem Relation Age of Onset- Cataract Mother- Diabetes Paternal GrandfatherSocial History:Social HistorySubstance Use Topics- Smoking status: Never Smoker- Smokeless tobacco: Not on file- Alcohol use NoNo current facility-administered medications on file prior to encounter.Current Outpatient Prescriptions on File Prior to Encounter:aspirin 325 mg tablet Take 325 mg by mouth once daily.VITAMIN B COMPLEX (B-COMPLEX ORAL) Take by mouth once daily.FOLIC ACID/MULTIVIT-MIN/LUTEIN (CENTRUM SILVER ORAL) Take by mouth oncedaily.trimethoprim-p olymyxin eye drops (POLYTRIM) ophthalmic solution Use 1 Dropin the right eye four times daily.prednisoLONE acetate (PRED FORTE, ECONOPRED PLUS) 1 % ophthalmicsuspension Use 1 Drop in the right eye four times daily.Current Facility-Administered Medications:0.9% NaCl 2-10 mL 2-10 mL INTRAVENOUS q 12 H Bria Morejon 3 mL at110/06/16 1200Allergies: ALLERGIESNo Known AllergiesDOS EXAM: Adequate NPO Status: YesAnesthetic Risks, Benefits, Alternatives, Personnel and Consent Discussed:YesPatient agrees to proceed: YesPrevious Anesthesia: No history of adverse eventAirway Assessment: MP 2; Neck ROM: Full ROM without neurologic symptoms;Airway Evaluation: No significant abnormalitiesSymptoms of Sleep Apnea: NoneDentition: Teeth intactAdditional Physical Exam:Lungs: Patient health status unchanged since recent history and physical.See history and physical for exam findings.Cardiac: Patient health status unchanged since recent history andphysical. See history and physical for exam findings.Additional Pertinent Findings: N/ABlood Products: Not anticipated for this procedureAnesthetic Plan: MAC with general as back upAnesthetic Monitoring: Standard ASA MonitorsPain Management Plan: Parenteral or OralASA Class: 2Other Medical Problems: NoneChronic Beta Johnnie medication administered within 24 hours: N/AI have interviewed and examined the patient. I have reviewed the medicalrecord and/or the pre-anesthesia evaluation, pertinent labs, and testresults.Significant changes in the patient's condition since the History andPhysical, not otherwise documented in primary service progress notes: NoThis contains updated information obtained within 48 hours ofSurgery/Procedure.SIGN ATURE: Doc Moser MD PATIENT NAME: Tam Cervantes EclemDATE: August 05, 2017 : 12:19 PM CSN: [id number] [facility] BRIEF OP NOTon 08-05-2017 BRIEF OP NOT HNO ID: [id number]: Bria Dos Santoservice: OphthalmologyAuthor Type: PhysicianType: Brief Op NoteFiled: 08/05/2017 1:55 PMNote Text:BRIEF OPERATIVE / PROCEDURE NOTELOG ID: [id number]/Procedure Date: 08/05/2017Incision/Proce dure Start Time: 1:15 PMIncision Close/Procedure End Time: 1:28 PMSurgeon(s)/Procedurali st(s) and Meter Maintenance Person(s):Surgeon(s) and Role: * Bria Lerner Additional StaffProcedure(s): Phacoemulsification of cataract with insertion of posteriorchamber intraocular lens, right eyeAnesthesia: Monitored Anesthesia CareFindings: Combined cataractEstimated Blood Loss: 0 mlSpecimens: NoneComplications: NonePre-Op/Pre-Procedure Diagnosis: Combined 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,right eye [H25.811]Post-Op/Post-Pr ocedure Diagnosis: Combined 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,right eye [H25.811]SIGNATURE: Bria Morejon MD PATIENT NAME: Tam Cervantes EclemDATE: August 05, 2017 : 1:54 PM PAGER/CONTACT #: [facility] HISTORY PHYSICALon 7 HISTORY PHYSICAL HNO ID: [id number]: Bria JiménezsService: OphthalmologyAuthor Type: PhysicianType: HANDPFiled: 08/05/2017 1:33 PMNote Text:UPDATED HISTORY AND PHYSICAL EXAMINATIONSERVICE DATE: 08/05/2017SERVICE TIME: 1:10 PMPHYSICAL EXAM MUST BE COMPLETED ON ADMISSIONThe History and Physical (completed in the past 30 days) has been reviewedand the patient has been examined. The contents accurately reflect thepatient's condition with the following additions or revisions since theHANDP was completed.Examination indicates no changes.This HANDP can be found in the Electronic Medical Record dated 07/27/2017.SIGNATURE: Bria Morejon MD PATIENT NAME: Tam Cervantes EclemDATE: August 05, 2017 : 1:10 PM PAGER: [phone] [facility] OPERATIVE NOon 08-05-2017 OPERATIVE NO HNO ID: [id number]: Bria Dos Santoservice: OphthalmologyAuthor Type: PhysicianType: Operative ReportFiled: 08/05/2017 4:30 PMNote Text:OPERATIVE REPORTDATE OF SERVICE: August 05, 2017SURGEON: Bria Morejon MDOPERATION: Phacoemulsification of cataract, insertion of posterior chamberintraocular lens implant, right eye.ANESTHESIA: Topical with monitored anesthesia care.PREOPERATIVE DIAGNOSIS: Combined nuclear sclerotic and posteriorsubcapsular cataract right eyePOSTOPERATIVE DIAGNOSIS: Combined nuclear sclerotic and posteriorsubcapsular cataract right eyeOPERATIVE INDICATIONS: This is a 66 year old male who presented to theclinic with complaints of decreased vision and glare from the right eyethat interfered with activities of daily living. Exam revealed a bestcorrected visual acuity of 20/50 after a myopic shift and a moderatenuclear sclerotic and dense posterior subcapsular cataract. Risks,benefits, and alternatives to cataract surgery were reviewed with thepatient, who appeared to understand and wished to proceed with theprocedure.OPERATIVE PROCEDURE: The patient and site were identified and verified.The patient was taken to the operating room and under monitored anesthesiacare, received 2% lidocaine gel to the right eye. The patient was thenprepped and draped in the usual sterile fashion for intraocular surgery.The operating microscope was brought into position and a lid speculum wasplaced. A paracentesis was created at the 11 o'clock position using aDiamatrix blade, and the anterior chamber was filled with viscoelastic. Atriplanar clear corneal incision was created from the 8 to 9 o'clockposition. A continuous curvilinear capsulorrhexis was created usingcystotome and Utrata forceps. Gentle hydrodissection was performed. Thenucleus was successfully removed using phacoemulsification and residualcortical material was removed using irrigation aspiration. The anteriorand posterior capsules were inspected and found to be free of rents ortears. The bag was filled with viscoelastic and a +21.5 D [id number] lens wasinserted into the bag and positioned. Viscoelastic was removed and theanterior chamber was reformed using balanced salt solution. The woundswere checked and found to be free of leaks. The patient's eye was shieldedover steroid antibiotic, and he was taken to the postoperative area havingtolerated the procedure well. The patient knows to keep the shield on theeye and refrain from strenuous activity until seen in the [facility] Clin[facility]omorrow morning.Dr. Morejon performed the entire procedure.Incision/Proce dure Start Time: 1:15 PMIncision Close/Procedure End Time: 1:28 PMCOMPLICATIONS: noneESTIMATED BLOOD LOSS: noneDRAINS: noneSPECIMENS: noneStella Danny Morejon MD [facility] HOSPon 07-13-2017 HOSP Patient:Tam Walsh MRN: Height:5' 11(1.803 m)Weight:225 lb (102.059 kg)Outpatient Medications as of 08/05/17:ipratropium bromide (ATROVENT) 0.06 % nasal sprayibuprofen (ADVIL) 200 mg tabletNAPROXEN SODIUM (ALEVE ORAL)diphenhydrAMINE (ZZZQUIL) 25 mg capsuleaspirin 325 mg tabletVITAMIN B COMPLEX (B-COMPLEX ORAL)FOLIC ACID/MULTIVIT-MIN/LUTEIN (CENTRUM SILVER ORAL)trimethoprim-polymy meri eye drops (POLYTRIM) ophthalmic solutionprednisoLONE acetate (PRED FORTE, ECONOPRED PLUS) 1 % ophthalmic suspensionAdmission/Clin ic Administered Medications as of 08/05/17:0.9% NaCl 2-10 mLProblem List:Combined 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, 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]Refractive amblyopia of left eye [H53.022]Combined 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, right eye [H25.811]Combined 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, left eye [H25.812]Allergies:No Known AllergiesDate Verified:08/05/17Lab ValuesNo results within the last 30 days for the following basenames: K,HCTProgress Notes ([facility] [place]):Rosa Kirby 08/04/2017 8:13 AM SignedINTRAOCULAR LENS ORDERPLEASE FORWARD THIS FORM TO:ATTN: [facility] PATIENTS NAME: Tam Walsh SURGERY DATE: 08/05/2017 EYE: ODSURGEON: Bria Morejon MD LENS: AcrySof IQ TAPE MACHINE TAILER: Arnulfo MODEL: [id number] POWER: + 21.5 ADDITIONAL NOTES:Progress Notes ([facility] [place]):Bria Morejon MD 07/27/2017 10:14 AM SignedCalled patient to review results of yesterday's measurements and discuss lensoptions. No answer. Left message for patient to call back.Bria Morejon MD07/27/201710:04 Vivi Morejon MD 07/27/2017 10:14 AM SignedPatient called back. Minimal astigmatism OD, recommend standard lens. Mildregular astigmatism OS, however given it is amblyopic eye, recommend standardlens.Answered all questions that patient had for me today regarding pre andpost-operative drops.Bria Morejon MD07/27/201710:14 AM [facility] HOSP Patient:Tam Walsh MRN: Height:5' 11(1.803 m)Weight:225 lb (102.059 kg)Outpatient Medications as of 08/12/17:ipratropium bromide (ATROVENT) 0.06 % nasal sprayibuprofen (ADVIL) 200 mg tabletNAPROXEN SODIUM (ALEVE ORAL)diphenhydrAMINE (ZZZQUIL) 25 mg capsuleaspirin 325 mg tabletVITAMIN B COMPLEX (B-COMPLEX ORAL)FOLIC ACID/MULTIVIT-MIN/LUTEIN (CENTRUM SILVER ORAL)trimethoprim-polymy meri eye drops (POLYTRIM) ophthalmic solutionprednisoLONE acetate (PRED FORTE, ECONOPRED PLUS) 1 % ophthalmic suspensionAdmission/Clin ic Administered Medications as of 08/12/17:0.9% NaCl 2-10 mLProblem List:Combined 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, 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]Refractive amblyopia of left eye [H53.022]Combined 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 of left eye [H25.812]Examination following surgery [Z09]Pseudophakia of right eye [Z96.1]Allergies:No Known AllergiesDate Verified:08/12/17Lab ValuesNo results within the last 30 days for the following basenames: K,HCTProgress Notes ([facility] [place]Rosa Kirby 08/10/2017 12:23 PM SignedINTRAOCULAR LENS ORDERPLEASE FORWARD THIS FORM TO:ATTN: [facility] PATIENTS NAME: Tam Walsh SURGERY DATE: 08/12/2017 EYE: OSSURGEON: Bria Morejon MD LENS: AcrySof IQ TAPE MACHINE TAILER: Arnulfo MODEL: [id number] POWER: + 24.0 ADDITIONAL NOTES:Progress Notes ([facility] [place]):Bria Morejon MD 08/06/2017 3:19 PM Signed(Z09) Examination following surgery (primary encounter diagnosis)Comment: 1 day s/p uncomplicated PEIOL OD, doing very well. Excellent visionPlan: The patient was educated and all questions were answered.Polytrim oph solution 1 drop to OD 4x daily.Prednisolone 1% oph solution 1 drop to OD 4x daily.Avoid rubbing the eye.No water directly into the eye.Wear shield when sleeping.Wear sunglasses in brightly lit conditions.No lifting greater than 20 lbsSigns and symptoms of infection and retinal detachment were reviewed.(Z96.1) Pseudophakia of right eyeComment: As abovePlan: As above(H25.812) Combined 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 of left eyeComment: Scheduled for surgery next weekPlan: NATALIIA LOUIS have confirmed and edited as necessary the relevant ophthalmic history, ROS,and the neuro exam findings as obtained by others. I have seen and examined thispatient.I have discussed the case and the management of this patient's care with theResident/Fellow/Optom etrist, if applicable. I also have reviewed and agree withthe assessment and plan as stated above and agree with all of its relevantcomponents.Renetta Morejon MD August 06, 2017 3:18 PM [facility] Anaerobic culture Bacteria identified Anaer cx Nom (Unsp spec) [facility] Work Phone: Bacteria identified Cx Nom ( Wound) Wound Culture Staphylococcus aureus [facility] Work Phone: Gram stain for investigation of transfusion reaction Microscopic observation Gram stain Nom (Unsp spec) [facility] Work Phone: Vital Signs Date Time Vital Sign Value Performing Clinician Facility 03-16-2025 08:14-0400 Diastolic blood pressure 69 mm[Hg] Mary Luis APRN.DIRECTOR OF SUPPLY CHAIN Work Phone: [facility] 03-16-2025 08:14-0400 Heart rate 69 /min Mary Luis APRN.DIRECTOR OF SUPPLY CHAIN Work Phone: [facility] 03-16-2025 08:14-0400 Respiratory rate 18 /min Mary Luis APRN.DIRECTOR OF SUPPLY CHAIN Work Phone: [facility] 03-16-2025 08:14-0400 SaO2% (BldA) [Mass fraction] 94 % Mary Luis APRN.DIRECTOR OF SUPPLY CHAIN Work Phone: [facility] 03-16-2025 08:14-0400 Systolic blood pressure 119 mm[Hg] Mary Luis PROCESS SAFETY MANAGEMENT ENGINEER.DIRECTOR OF SUPPLY CHAIN Work Phone: [facility] 03-14-2025 08:27-0400 Diastolic blood pressure 81 mm[Hg] Mary Luis PROCESS SAFETY MANAGEMENT ENGINEER.DIRECTOR OF SUPPLY CHAIN Work Phone: [facility] 03-14-2025 08:27-0400 Heart rate 78 /min Mary Luis PROCESS SAFETY MANAGEMENT ENGINEER.DIRECTOR OF SUPPLY CHAIN Work Phone: [facility] 03-14-2025 08:27-0400 Respiratory rate 20 /min Mary Luis PROCESS SAFETY MANAGEMENT ENGINEER.DIRECTOR OF SUPPLY CHAIN Work Phone: [facility] 03-14-2025 08:27-0400 SaO2% (BldA) [Mass fraction] 96 % Mary Luis PROCESS SAFETY MANAGEMENT ENGINEER.DIRECTOR OF SUPPLY CHAIN Work Phone: [facility] 03-14-2025 08:27-0400 Systolic blood pressure 123 mm[Hg] Mary Luis PROCESS SAFETY MANAGEMENT ENGINEER.DIRECTOR OF SUPPLY CHAIN Work Phone: [facility] 08-18-2023 10:43-0500 Body mass index (BMI) [Ratio] 29.4 kg/m2 Dr. Samson Clement Work Phone: [facility] 08-18-2023 10:43-0500 Body temperature 97.2 [degF] Dr. Samson Clement Work Phone: [facility] 08-18-2023 10:43-0500 Diastolic blood pressure 67 mm[Hg] Dr. Samson Clement Work Phone: [facility] 08-18-2023 10:43-0500 Heart rate 79 /min Dr. Samson Clement Work Phone: [facility] 08-18-2023 10:43-0500 Respiratory rate 18 /min Dr. Samson Clement Work Phone: [facility] 08-18-2023 10:43-0500 Systolic blood pressure 118 mm[Hg] Dr. Samson Clement Work Phone: [facility] 07-28-2023 14:45-0500 Body temperature 97.34 [degF] SABRINA KAPPER PROCESS SAFETY MANAGEMENT ENGINEER-DIRECTOR OF SUPPLY CHAIN [facility] 07-28-2023 14:45-0500 Diastolic Blood Pressure Non-Invasive 69 mm[Hg] SABRINA KAPPER PROCESS SAFETY MANAGEMENT ENGINEER-DIRECTOR OF SUPPLY CHAIN [facility] 07-28-2023 14:45-0500 Heart rate 79 /min SABRINA KAPPER PROCESS SAFETY MANAGEMENT ENGINEER-DIRECTOR OF SUPPLY CHAIN [facility] 07-28-2023 14:45-0500 Reason For Taking VItal Signs ASBRINA KAPPER PROCESS SAFETY MANAGEMENT ENGINEER-DIRECTOR OF SUPPLY CHAIN [facility] 07-28-2023 14:45-0500 Respiratory rate 18 /min SABRINA KAPPER PROCESS SAFETY MANAGEMENT ENGINEER-DIRECTOR OF SUPPLY CHAIN [facility] 07-28-2023 14:45-0500 Systolic Blood Pressure Non-Invasive 120 mm[Hg] SABRINA KAPPER PROCESS SAFETY MANAGEMENT ENGINEER-DIRECTOR OF SUPPLY CHAIN [facility] 07-28-2023 11:46-0500 Body temperature 97.16 [degF] SABRINA KAPPER PROCESS SAFETY MANAGEMENT ENGINEER-DIRECTOR OF SUPPLY CHAIN [facility] 07-28-2023 11:46-0500 Diastolic Blood Pressure Non-Invasive 58 mm[Hg] SABRINA KAPPER PROCESS SAFETY MANAGEMENT ENGINEER-DIRECTOR OF SUPPLY CHAIN [facility] 07-28-2023 11:46-0500 Reason For Taking VItal Signs SABRINA KAPPER PROCESS SAFETY MANAGEMENT ENGINEER-DIRECTOR OF SUPPLY CHAIN [facility] 07-28-2023 11:46-0500 Respiratory rate 18 /min SABRINA KAPPER PROCESS SAFETY MANAGEMENT ENGINEER-DIRECTOR OF SUPPLY CHAIN [facility] 07-28-2023 11:46-0500 Systolic Blood Pressure Non-Invasive 97 mm[Hg] SABRINA KAPPER PROCESS SAFETY MANAGEMENT ENGINEER-DIRECTOR OF SUPPLY CHAIN [facility] 07-28-2023 07:28-0500 Body temperature 97.7 [degF] SABRINA KAPPER PROCESS SAFETY MANAGEMENT ENGINEER-DIRECTOR OF SUPPLY CHAIN [facility] 07-28-2023 07:28-0500 Diastolic Blood Pressure Non-Invasive 74 mm[Hg] SABRINA CHAUER PROCESS SAFETY MANAGEMENT ENGINEER-DIRECTOR OF SUPPLY CHAIN [facility] 07-28-2023 07:28-0500 Heart rate 77 /min SABRINA KAPPER PROCESS SAFETY MANAGEMENT ENGINEER-DIRECTOR OF SUPPLY CHAIN [facility] 07-28-2023 07:28-0500 Reason For Taking VItal Signs SABRINA KAPPER PROCESS SAFETY MANAGEMENT ENGINEER-DIRECTOR OF SUPPLY CHAIN [facility] 07-28-2023 07:28-0500 Respiratory rate 18 /min SABRINA CHAUER PROCESS SAFETY MANAGEMENT ENGINEER-DIRECTOR OF SUPPLY CHAIN [facility] 07-28-2023 07:28-0500 Systolic Blood Pressure Non-Invasive 128 mm[Hg] SABRINA KAPPER PROCESS SAFETY MANAGEMENT ENGINEER-DIRECTOR OF SUPPLY CHAIN [facility] 07-28-2023 04:10-0500 Heart rate 72 /min SABRINA KAPPER PROCESS SAFETY MANAGEMENT ENGINEER-DIRECTOR OF SUPPLY CHAIN [facility] 07-28-2023 00:00-0500 Heart rate 77 /min SABRINA KAPPER PROCESS SAFETY MANAGEMENT ENGINEER-DIRECTOR OF SUPPLY CHAIN [facility] 07-27-2023 20:08-0500 Heart rate 100 /min SABRINA KAPPER PROCESS SAFETY MANAGEMENT ENGINEER-DIRECTOR OF SUPPLY CHAIN [facility] 07-27-2023 15:26-0500 Heart rate 86 /min SABRINA KAPPER PROCESS SAFETY MANAGEMENT ENGINEER-DIRECTOR OF SUPPLY CHAIN [facility] 07-27-2023 11:30-0500 Heart rate 93 /min SABRINA KAPPER PROCESS SAFETY MANAGEMENT ENGINEER-DIRECTOR OF SUPPLY CHAIN [facility] 07-25-2023 20:00-0500 Heart rate 88 /min SABRINA RITCHIEER PROCESS SAFETY MANAGEMENT ENGINEER-DIRECTOR OF SUPPLY CHAIN [facility] 07-25-2023 17:21-0500 Body height 180.3 cm SABRINA RITCHIEER PROCESS SAFETY MANAGEMENT ENGINEER-DIRECTOR OF SUPPLY CHAIN [facility] 07-25-2023 17:21-0500 Body weight 88 kg SABRINA RITCHIEER PROCESS SAFETY MANAGEMENT ENGINEER-DIRECTOR OF SUPPLY CHAIN [facility] 07-25-2023 17:21-0500 Body weight 27.07 kg/m2 SABRINA RITCHIEER PROCESS SAFETY MANAGEMENT ENGINEER-DIRECTOR OF SUPPLY CHAIN [facility] 07-25-2023 16:36-0500 Body weight 88 kg SABRINA RITCHIEER PROCESS SAFETY MANAGEMENT ENGINEER-DIRECTOR OF SUPPLY CHAIN [facility] 07-25-2023 16:15-0500 Heart rate 92 /min SABRINA NIXON PROCESS SAFETY MANAGEMENT ENGINEER-DIRECTOR OF SUPPLY CHAIN [facility] 07-25-2023 12:17-0500 Blood Pressure Location SABRINA RITCHIEER PROCESS SAFETY MANAGEMENT ENGINEER-DIRECTOR OF SUPPLY CHAIN [facility] 07-23-2023 00:25-0500 Body weight 95.[address] Samson Clement Work Phone: [facility] 07-21-2023 09:44-0500 Body mass index (BMI) [Ratio] 29.4 kg/m2 Dr. Samson Clement Work Phone: [facility] 07-21-2023 09:44-0500 Body temperature 97.8 [degF] Dr. Samson Clement Work Phone: [facility] 07-21-2023 09:44-0500 Diastolic blood pressure 81 mm[Hg] Dr. Samson Clement Work Phone: [facility] 07-21-2023 09:44-0500 Heart rate 95 /min Dr. Samson Clement Work Phone: [facility] 07-21-2023 09:44-0500 Respiratory rate 16 /min Dr. Samson Clement Work Phone: [facility] 07-21-2023 09:44-0500 Systolic blood pressure 120 mm[Hg] Dr. Samson Clement Work Phone: [facility] 07-14-2023 09:19-0500 Body height 180.[address] Samson Clement Work Phone: [facility] 07-14-2023 09:19-0500 Body weight 95.[address] Samson Clement Work Phone: [facility] 06-30-2023 10:19-0500 Body temperature 98 [degF] Dr. Samson Clement Work Phone: [facility] 06-30-2023 10:19-0500 Diastolic blood pressure 86 mm[Hg] Dr. Samson Clement Work Phone: [facility] 06-30-2023 10:19-0500 Heart rate 82 /min Dr. Samson Clement Work Phone: [facility] 06-30-2023 10:19-0500 Respiratory rate 18 /min Dr. Samson Clement Work Phone: [facility] 06-30-2023 10:19-0500 SaO2% (BldA) [Mass fraction] 98 % Dr. Samson Clement Work Phone: [facility] 06-30-2023 10:19-0500 Systolic blood pressure 125 mm[Hg] Dr. Samson Clement Work Phone: [facility] 06-10-2023 08:16-0400 Diastolic blood pressure 85 mm[Hg] Dr. Samson Clement Work Phone: [facility] 06-10-2023 08:16-0400 Systolic blood pressure 140 mm[Hg] Dr. Samson Clement Work Phone: [facility] 06-09-2023 11:24-0400 Body temperature 98.2 [degF] Dr. Samson Clement Work Phone: [facility] 06-09-2023 11:24-0400 Heart rate 85 /min Dr. Samson Clement Work Phone: [facility] 06-09-2023 11:24-0400 Respiratory rate 16 /min Dr. Samson Clement Work Phone: [facility] 06-09-2023 11:24-0400 SaO2% (BldA) [Mass fraction] 98 % Dr. Samson Clement Work Phone: [facility] 05-26-2023 10:26-0400 Body temperature 98.2 [degF] Dr. Samson Clement Work Phone: [facility] 05-26-2023 10:26-0400 Diastolic blood pressure 85 mm[Hg] Dr. Samson Clement Work Phone: [facility] 05-26-2023 10:26-0400 Heart rate 85 /min Dr. Samson Clement Work Phone: [facility] 05-26-2023 10:26-0400 Respiratory rate 16 /min Dr. Samson Clement Work Phone: [facility] 05-26-2023 10:26-0400 SaO2% (BldA) [Mass fraction] 97 % Dr. Samson Clement Work Phone: [facility] 05-26-2023 10:26-0400 Systolic blood pressure 135 mm[Hg] Dr. Samson Clmeent Work Phone: [facility] 05-19-2023 12:32-0400 Body height 180.[address] Samson Clement Work Phone: [facility] 05-19-2023 12:32-0400 Body weight 97.[address] Samson Clement Work Phone: [facility] 05-18-2023 09:54-0400 Body mass index (BMI) [Ratio] 29.9 kg/m2 Dr. Samson Clement Work Phone: [facility] 05-15-2023 16:57-0400 Diastolic Blood Pressure Non-Invasive 79 1 DALTON HOLDEN MD [facility] 05-15-2023 16:57-0400 Heart rate 83 /min DALTON HOLDEN MD [facility] 05-15-2023 16:57-0400 Respiratory rate 17 /min DALTON HOLDEN MD [facility] 05-15-2023 16:57-0400 Systolic Blood Pressure Non-Invasive 158 1 DALTON HOLDEN MD [facility] 05-15-2023 16:45-0400 Heart rate 83 /min DALTON HOLDEN MD [facility] 05-15-2023 16:45-0400 Respiratory rate 18 /min DALTON HOLDEN MD [facility] 05-15-2023 14:19-0400 Diastolic Blood Pressure Non-Invasive 84 1 DALTON HOLDEN MD [facility] 05-15-2023 14:19-0400 Heart rate 77 /min DALTON HOLDEN MD [facility] 05-15-2023 14:19-0400 Respiratory rate 16 /min DALTON HOLDEN MD [facility] 05-15-2023 14:19-0400 Systolic Blood Pressure Non-Invasive 182 1 DALTON HOLDEN MD [facility] 05-15-2023 13:05-0400 Body temperature 97.7 [degF] DALTON HOLDEN MD [facility] 05-15-2023 13:05-0400 Diastolic Blood Pressure Non-Invasive 91 1 DALTON HOLDEN MD [facility] 05-15-2023 13:05-0400 Heart rate 78 /min DALTON HOLDEN MD [facility] 05-15-2023 13:05-0400 Systolic Blood Pressure Non-Invasive 205 1 DALTON HOLDEN MD [facility] 04-21-2023 11:41-0400 Body temperature 98.2 [degF] Dr. Samson Clement Work Phone: [facility] 04-21-2023 11:41-0400 Diastolic blood pressure 87 mm[Hg] Dr. Samson Clement Work Phone: [facility] 04-21-2023 11:41-0400 Heart rate 69 /min Dr. Samson Clement Work Phone: [facility] 04-21-2023 11:41-0400 Respiratory rate 18 /min Dr. Samson Clement Work Phone: [facility] 04-21-2023 11:41-0400 SaO2% (BldA) [Mass fraction] 97 % Dr. Samson Clement Work Phone: [facility] 04-21-2023 11:41-0400 Systolic blood pressure 153 mm[Hg] Dr. Samson Clement Work Phone: [facility] 04-15-2023 07:21-0400 Body height 180.[address] Samson Clement Work Phone: [facility] 04-15-2023 07:21-0400 Body weight 97.[address] Samson Clement Work Phone: [facility] 04-14-2023 08:31-0400 Body mass index (BMI) [Ratio] 29.9 kg/m2 Dr. Samson Clement Work Phone: [facility] 03-17-2023 13:25-0400 Body temperature 98 [degF] Dr. Samson Clement Work Phone: [facility] 03-17-2023 13:25-0400 Diastolic blood pressure 83 mm[Hg] Dr. Samson Clement Work Phone: [facility] 03-17-2023 13:25-0400 Heart rate 77 /min Dr. Samson Clement Work Phone: [facility] 03-17-2023 13:25-0400 Respiratory rate 16 /min Dr. Samson Clement Work Phone: [facility] 03-17-2023 13:25-0400 SaO2% (BldA) [Mass fraction] 96 % Dr. Samson Clement Work Phone: [facility] 03-17-2023 13:25-0400 Systolic blood pressure 134 mm[Hg] Dr. Samson Clement Work Phone: [facility] 09-01-2022 13:21-0500 Body temperature 97.4 [degF] COMMUNITY SERVICE TECHNICIAN-C Adele Hien COMMUNITY SERVICE TECHNICIAN Work Phone: [facility] Work Phone: 09-01-2022 13:21-0500 Diastolic blood pressure 79 mm[Hg] COMMUNITY SERVICE TECHNICIAN-C Adele Hien COMMUNITY SERVICE TECHNICIAN Work Phone: [facility] Work Phone: 09-01-2022 13:21-0500 Heart rate 86 /min COMMUNITY SERVICE TECHNICIAN-C Adele Hien COMMUNITY SERVICE TECHNICIAN Work Phone: [facility] Work Phone: 09-01-2022 13:21-0500 Respiratory rate 18 /min COMMUNITY SERVICE TECHNICIAN-C Adele Hien COMMUNITY SERVICE TECHNICIAN Work Phone: [facility] Work Phone: 09-01-2022 13:21-0500 Systolic blood pressure 140 mm[Hg] COMMUNITY SERVICE TECHNICIAN-C Adele Hien COMMUNITY SERVICE TECHNICIAN Work Phone: [facility] Work Phone: 08-04-2022 13:19-0500 Body temperature 96.9 [degF] COMMUNITY SERVICE TECHNICIAN-C Adele Hien COMMUNITY SERVICE TECHNICIAN Work Phone: [facility] Work Phone: 08-04-2022 13:19-0500 Diastolic blood pressure 83 mm[Hg] COMMUNITY SERVICE TECHNICIAN-C Adele Hien COMMUNITY SERVICE TECHNICIAN Work Phone: [facility] Work Phone: 08-04-2022 13:19-0500 Heart rate 78 /min COMMUNITY SERVICE TECHNICIAN-C Adele Hien COMMUNITY SERVICE TECHNICIAN Work Phone: [facility] Work Phone: 08-04-2022 13:19-0500 Respiratory rate 16 /min COMMUNITY SERVICE TECHNICIAN-C Adele Hien COMMUNITY SERVICE TECHNICIAN Work Phone: [facility] Work Phone: 08-04-2022 13:19-0500 Systolic blood pressure 131 mm[Hg] COMMUNITY SERVICE TECHNICIAN-C Adele Hien COMMUNITY SERVICE TECHNICIAN Work Phone: [facility] Work Phone: 07-28-2022 14:05-0500 Body height 180.34 cm COMMUNITY SERVICE TECHNICIAN-C Adele Hien COMMUNITY SERVICE TECHNICIAN Work Phone: [facility] Work Phone: 07-28-2022 14:05-0500 Body mass index (BMI) [Ratio] 29.9 kg/m2 COMMUNITY SERVICE TECHNICIAN-C Adele Hien COMMUNITY SERVICE TECHNICIAN Work Phone: [facility] Work Phone: 07-28-2022 14:05-0500 Body temperature 98.2 [degF] COMMUNITY SERVICE TECHNICIAN-C Adele Hien COMMUNITY SERVICE TECHNICIAN Work Phone: [facility] Work Phone: 07-28-2022 14:05-0500 Body weight 97.52 kg COMMUNITY SERVICE TECHNICIAN-C Adele Hien COMMUNITY SERVICE TECHNICIAN Work Phone: [facility] Work Phone: 07-28-2022 14:05-0500 Diastolic blood pressure 82 mm[Hg] COMMUNITY SERVICE TECHNICIAN-C Adele Hien COMMUNITY SERVICE TECHNICIAN Work Phone: [facility] Work Phone: 07-28-2022 14:05-0500 Heart rate 79 /min COMMUNITY SERVICE TECHNICIAN-C Adele Hien COMMUNITY SERVICE TECHNICIAN Work Phone: [facility] Work Phone: 07-28-2022 14:05-0500 Respiratory rate 16 /min COMMUNITY SERVICE TECHNICIAN-C Adele Hien COMMUNITY SERVICE TECHNICIAN Work Phone: [facility] Work Phone: 07-28-2022 14:05-0500 SaO2% (BldA) [Mass fraction] 96 % COMMUNITY SERVICE TECHNICIAN-C Adele Hien COMMUNITY SERVICE TECHNICIAN Work Phone: [facility] Work Phone: 07-28-2022 14:05-0500 Systolic blood pressure 133 mm[Hg] COMMUNITY SERVICE TECHNICIAN-C Adele Hien COMMUNITY SERVICE TECHNICIAN Work Phone: [facility] Work Phone: 07-21-2022 13:39-0500 Body temperature 97.5 [degF] COMMUNITY SERVICE TECHNICIAN-C Adele Hien COMMUNITY SERVICE TECHNICIAN Work Phone: [facility] Work Phone: 07-21-2022 13:39-0500 Diastolic blood pressure 91 mm[Hg] COMMUNITY SERVICE TECHNICIAN-C Adele Hien COMMUNITY SERVICE TECHNICIAN Work Phone: [facility] Work Phone: 07-21-2022 13:39-0500 Heart rate 88 /min COMMUNITY SERVICE TECHNICIAN-C Adele Hien COMMUNITY SERVICE TECHNICIAN Work Phone: [facility] Work Phone: 07-21-2022 13:39-0500 Respiratory rate 16 /min COMMUNITY SERVICE TECHNICIAN-C Adele Hien COMMUNITY SERVICE TECHNICIAN Work Phone: [facility] Work Phone: 07-21-2022 13:39-0500 Systolic blood pressure 149 mm[Hg] COMMUNITY SERVICE TECHNICIAN-C Adele Hien COMMUNITY SERVICE TECHNICIAN Work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 this encounter [facility] 03-16-2025 Note HNO ID: [id number] Author: MARY LUIS APRN.CHACE Service: ? Author Type: Nurse Practitioner Type: Progress Notes Filed: 03/16/2025 12:15 Note Text: Connected Care Unit Discharge Summary SNF Connected Care Program [facility] [address], [address]) [place] [address] -- CONNECTED CARE DISCHARGE SUMMARY Service Date: 03/16/2025 Admission Date: 03/10/25 Discharge Date: 03/19/25 Facility: [facility] Level of Care: Skilled SNF Attending: Kevin Mckeon M.D. Connected Care Primary Care Physician: Tacos Dye MD Principal Diagnosis: Weakness (primary encounter diagnosis) Recurrent falls Cervical stenosis of spine Hypertension, unspecified type Other dysphagia Hyperlipidemia, unspecified hyperlipidemia type Hypothyroidism, unspecified type Gastroesophageal reflux disease, unspecified whether esophagitis present Debility Subacute Course: Patient admitted for debility and rehabilitation after hospitalization for weakness, recurrent falls, and spinal stenosis without intervention. Patient is nonweightbearing and has DME at home for therapy needs. He is being discharged home with spouse and home health care. Tests/Procedures: Latest Reference Range AND Units 03/14/25 14:42 Sodium 136 - 145 mmol/L 132 (L) Potassium See comment Chloride 98 - 107 mmol/L 98 CO2 21 - 32 mmol/L 20 (L) BUN 7 - 26 mg/dL 20 Creatinine 0.50 - 1.40 mg/dL 0.50 Glucose 70 - 100 mg/dL 130 (H) Protein, Total 6.0 - 8.5 g/dL 7.0 Calcium 8.5 - 10.5 mg/dL 9.0 Albumin 3.2 - 5.0 g/dL 3.2 Bilirubin, Total 0.2 - 1.0 mg/dL 0.5 Alkaline Phosphatase 45 - 117 U/L 179 (H) ALT 13 - 61 U/L 37 AST See comment Anion Gap 5 - 16 mmol/L 14 eGFR >=60 mL/min/1.73m? 107 WBC 3.70 - 11.00 k/uL 8.66 RBC 4.20 - 6.00 m/uL 4.98 Hemoglobin 13.0 - 17.0 g/dL 15.8 Hematocrit 39.0 - 51.0 % 48.1 Platelet Count 150 - 400 k/uL 291 MCV 80.0 - 100.0 fL 96.6 MCH 26.0 - 34.0 pg 31.7 MCHC 30.5 - 36.0 g/dL 32.8 MPV 9.0 - 12.7 fL 10.3 RDW-CV 11.5 - 15.0 % 13.2 DTYPE Auto Neut% % 66.9 Abs Neut (ANC) 1.45 - 7.50 k/uL 5.79 Lymph% % 21.6 Abs Lymph 1.00 - 4.00 k/uL 1.87 [place]% % 8.5 Abs [place] <0.87 k/uL 0.74 Eosin% % 2.1 Abs Eosin <0.46 k/uL 0.18 Baso% % 0.3 Abs Baso <0.11 k/uL 0.03 Immature Gran % % 0.6 IMMATURE GRANS (ABS) <0.10 k/uL 0.05 NRBC /100 WBC 0.0 Absolute nRBC <0.01 k/uL <0.01 (L): Data is abnormally low (H): Data is abnormally high Transitions of Care Critical Issues: Imaging follow-up: None Lab Monitoring Needed: None Specialists Follow-Up: Yes, Ortho Dr. Baldwin and Neuro Dr. Angel with EGMs Discharge Physical Exam: Physical Exam Constitutional: Appearance: Normal appearance. HENT: Head: Normocephalic. Eyes: Extraocular Movements: Extraocular movements intact. Cardiovascular: Rate and Rhythm: Normal rate and regular rhythm. Heart sounds: Normal heart sounds. Pulmonary: Effort: Pulmonary effort is normal. Breath sounds: Normal breath sounds. Abdominal: General: Abdomen is flat. Bowel sounds are normal. Palpations: Abdomen is soft. Musculoskeletal: General: Normal range of motion. Skin: General: Skin is warm and dry. Neurological: General: No focal deficit present. Mental Status: He is alert and oriented to person, place, and time. Motor: Weakness present. Psychiatric: Mood and Affect: Mood normal. Behavior: Behavior normal. Discharge Condition: Stable Discharge Disposition: Home/Community Discharge Medications: Aspirin 81 mg tab Take 1 tablet by mouth once daily for 14 days. levothyroxine (SYNTHROID) 25 mcg tablet Take 1 tablet by mouth once daily for [address] (PROTONIX) 40 mg tablet Take 1 tablet by mouth once daily for 14 days. pravastatin (PRAVACHOL) 10 mg tablet Take 1 tablet by mouth once daily for 14 days. triamterene-hydroCHLOROthiazide (MAXZIDE-25) 37.5-25 mg per tablet Take 1 tablet by mouth once daily for 14 days. oxyCODONE IR (ROXICODONE) 5 mg immediate release tablet Take 1 tablet by mouth every 8 hours as needed for up to 7 days. Food Supplement, Lactose-Free (ENSURE ACTIVE PROTEIN-MUSCLE) liqd Take 8 ounces by mouth once daily. acetaminophen (TYLENOL EXTRA STRENGTH) 500 mg tablet Take 500 mg by mouth every 8 hours as needed. ibuprofen (ADVIL) 200 mg tablet Take 200 mg by mouth every 6 hours as needed. aspirin (ASPIR-81 ORAL) Take by mouth. multivit-min/FA/lycopen/lutein (CENTRUM SILVER MEN ORAL) Take by mouth. polyethylene glycol 3350 (MIRALAX, GLYCOLAX) 17 gram packet Take 1 Packet by mouth once daily as needed. diphenhydrAMINE (ZZZQUIL) 25 mg capsule Take 25 mg by mouth at bedtime as needed. VITAMIN B COMPLEX (B-COMPLEX ORAL) Take by mouth once daily. Functional Status: Maximum assist [place] (more content not included)... [facility] 03-16-2025 History of Present illness Narrative Connected Care Unit Discharge Summary SNF Connected Care Program [place] [address], [address] ([address]) [place] [address] CONNECTED CARE DISCHARGE SUMMARY Service Date: 03/16/2025 Admission Date: 03/10/25 Discharge Date: 03/19/25 Facility: [facility] Level of Care: Skilled SNF Attending: Kevin Mckeon M.D. Connected Care Primary Care Physician: Tacos Dye MD Principal Diagnosis: Weakness (primary encounter diagnosis) Recurrent falls Cervical stenosis of spine Hypertension, unspecified type Other dysphagia Hyperlipidemia, unspecified hyperlipidemia type Hypothyroidism, unspecified type Gastroesophageal reflux disease, unspecified whether esophagitis present Debility Subacute Course: Patient admitted for debility and rehabilitation after hospitalization for weakness, recurrent falls, and spinal stenosis without intervention. Patient is nonweightbearing and has DME at home for therapy needs. He is being discharged home with spouse and home health care. Tests/Procedures: Latest Reference Range & Units 03/14/25 14:42 Sodium 136 - 145 mmol/L 132 (L) Potassium See comment Chloride 98 - 107 mmol/L 98 CO2 21 - 32 mmol/L 20 (L) BUN 7 - 26 mg/dL 20 Creatinine 0.50 - 1.40 mg/dL 0.50 Glucose 70 - 100 mg/dL 130 (H) Protein, Total 6.0 - 8.5 g/dL 7.0 Calcium 8.5 - 10.5 mg/dL 9.0 Albumin 3.2 - 5.0 g/dL 3.2 Bilirubin, Total 0.2 - 1.0 mg/dL 0.5 Alkaline Phosphatase 45 - 117 U/L 179 (H) ALT 13 - 61 U/L 37 AST See comment Anion Gap 5 - 16 mmol/L 14 eGFR >=60 mL/min/1.73m 107 WBC 3.70 - 11.00 k/uL 8.66 RBC 4.20 - 6.00 m/uL 4.98 Hemoglobin 13.0 - 17.0 g/dL 15.8 Hematocrit 39.0 - 51.0 % 48.1 Platelet Count 150 - 400 k/uL 291 MCV 80.0 - 100.0 fL 96.6 MCH 26.0 - 34.0 pg 31.7 MCHC 30.5 - 36.0 g/dL 32.8 MPV 9.0 - 12.7 fL 10.3 RDW-CV 11.5 - 15.0 % 13.2 DTYPE Auto Neut% % 66.9 Abs Neut (ANC) 1.45 - 7.50 k/uL 5.79 Lymph% % 21.6 Abs Lymph 1.00 - 4.00 k/uL 1.87 Magoffin% % 8.5 Abs Magoffin <0.87 k/uL 0.74 Eosin% % 2.1 Abs Eosin <0.46 k/uL 0.18 Baso% % 0.3 Abs Baso <0.11 k/uL 0.03 Immature Gran % % 0.6 IMMATURE GRANS (ABS) <0.10 k/uL 0.05 NRBC /100 WBC 0.0 Absolute nRBC <0.01 k/uL <0.01 (L): Data is abnormally low (H): Data is abnormally high Transitions of Care Critical Issues: Imaging follow-up: None Lab Monitoring Needed: None Specialists Follow-Up: Yes, Ortho Dr. Baldwin and Neuro Dr. Angel with EGMs Discharge Physical Exam: Physical Exam Constitutional: Appearance: Normal appearance. HENT: Head: Normocephalic. Eyes: Extraocular Movements: Extraocular movements intact. Cardiovascular: Rate and Rhythm: Normal rate and regular rhythm. Heart sounds: Normal heart sounds. Pulmonary: Effort: Pulmonary effort is normal. Breath sounds: Normal breath sounds. Abdominal: General: Abdomen is flat. Bowel sounds are normal. Palpations: Abdomen is soft. Musculoskeletal: General: Normal range of motion. Skin: General: Skin is warm and dry. Neurological: General: No focal deficit present. Mental Status: He is alert and oriented to person, place, and time. Motor: Weakness present. Psychiatric: Mood and Affect: Mood normal. Behavior: Behavior normal. Discharge Condition: Stable Discharge Disposition: Home/Community Discharge Medications: Aspirin 81 mg tab Take 1 tablet by mouth once daily for 14 days. levothyroxine (SYNTHROID) 25 mcg tablet Take 1 tablet by mouth once daily for [address] (PROTONIX) 40 mg tablet Take 1 tablet by mouth once daily for 14 days. pravastatin (PRAVACHOL) 10 mg tablet Take 1 tablet by mouth once daily for 14 days. triamterene-hydroCHLOROthiazide (MAXZIDE-25) 37.5-25 mg per tablet Take 1 tablet by mouth once daily for 14 days. oxyCODONE IR (ROXICODONE) 5 mg immediate release tablet Take 1 tablet by mouth every 8 hours as needed for up to 7 days. Food Supplement, Lactose-Free (ENSURE ACTIVE PROTEIN-MUSCLE) liqd Take 8 ounces by mouth once daily. acetaminophen (TYLENOL EXTRA STRENGTH) 500 mg tablet Take 500 mg by mouth every 8 hours as needed. ibuprofen (ADVIL) 200 mg tablet Take 200 mg by mouth every 6 hours as needed. aspirin (ASPIR-81 ORAL) Take by mouth. multivit-min/FA/lycopen/lutein (CENTRUM SILVER MEN ORAL) Take by mouth. polyethylene glycol 3350 (MIRALAX, GLYCOLAX) 17 gram packet Take 1 Packet by mouth once daily as needed. diphenhydrAMINE (ZZZQUIL) 25 mg capsule Take 25 mg by mouth at bedtime as needed. VITAMIN B COMPLEX (B-COMPLEX ORAL) Take by mouth once daily. Functional Status: Maximum assist [facility] Scheduled Future Appointments: No future appointments. Prior to discharge, staff to schedule follow up appointment for patient to see PCP within 7-10 days of discharge. I spent 45 minutes in the visit, with more than 50% of the total [id number] time of the visit in counseling / coordination of care. Mary Luis APRN.CHACE documented in this encounter [facility] 03-14-2025 Note HNO ID: [id number] Author: MARY LUIS APRN.CNP Service: ? Author Type: Nurse Practitioner Type: Progress Notes Filed: 03/14/2025 14:54 Note Text: Connected Care Unit Progress Note Patient Name: Tam Cervantes Eclgriselda Patient Facility: [facility] Admit Date 03/10/25 Level of Care: Skilled SNF Attending: Kevin Mckeon M.D. Service Date: 03/14/2025 Code Status: Full Chief Complaint: Evaluation regarding debility and rehabilitation ASSESSMENT AND PLAN (R53.1) Weakness (primary encounter diagnosis) (R29.6) Recurrent falls Encourage to ask for assistance for mobility Physical/occupational therapy (M48.02) Cervical stenosis of spine MRI and CT of thoracic and lumbar spine done during admission with no findings felt to be surgical candidate per spinal surgery Awaiting OP EMGs PRN Ibuprofen Follow up ortho, Dr. Baldwin Follow up neuro, Dr. Angel (I10) Hypertension, unspecified type (E78.5) Hyperlipidemia, unspecified hyperlipidemia type Continue Pravastatin and triamterene-HCTZ Monitor VS Monitor labs (E03.9) Hypothyroidism, unspecified type Continue Synthroid (K21.9) Gastroesophageal reflux disease, unspecified whether esophagitis present Continue PPI (R13.19) Other dysphagia Secondary to cervical stenosis Speech following (R53.81) Debility Certify therapies Maintain high falls risk precautions - pt/staff verbalize understanding validated via teach back Monitor safety awareness HPI: (Per hospital discharge 03/10/25) Weakness Multiple falls Patient was admitted to an [facility] due to increasing weakness and multiple falls Plan was for him to work with PT/OT with possible placement on discharge He was transferred here to [facility] due to facility's inability to perform MRIs with anesthesia Neurology consulted Following their evaluation and review of imaging lower extremity weakness and falls were believed to be due to increasing debility in an older gentleman with prior back surgeries, upper extremity weakness was thought to be due to spinal stenosis (see below) Patient worked with PT/OT here, placement was recommended on discharge and he was agreeable Cervical spine stenosis This was thought to be contributing to patient's falls at the [facility] MRI was recommended but was unable to be done as the patient wished to have it done with anesthesia MRI of the cervical spine with anesthesia done here on 02/28, severe foraminal narrowing seen at C4-C5 MRIs and CTs of the thoracic and lumbar spine also done, findings showed extensive postoperative changes but no significant stenosis Spine surgery consutled They were not convinced patient's symptoms could be explained by stenosis alone MRI brain ordered and found to be largely unrevealing Outpatient EMG recommended, neurology referral made on discharge Chronic comorbidities Hypertension Hyperlipidemia Hypothyroidism Neuropathy GERD Patient discharged to SNF on 03/10. 03/14/25 Tam Walsh is a 74-year-old male, with a history of multiple back surgeries and cervical stenosis, seen today for evaluation of current condition and therapy progress. Tam reports feeling sad due to his current situation in the facility. He has a history of three back surgeries performed at [facility], and his back is deteriorating along with the hardware. He mentions that there is nothing more that can be done surgically, and he expects his condition to slowly worsen. At home, Tam has three lift chairs and a setup that allows him to get up during the day with the help of a therapy belt and a chain hoist anchored to the ceiling. This setup enables him to perform some exercises, such as marching and deep knee bends. However, in the facility, he feels limited and unable to perform these activities. He will talk to therapy about some bed exercises he can perform in between sessions. Tam describes his therapy sessions as inconsistent. Two days ago, he was able to stand with the help of a stronger therapist, but yesterday, the attempt to stand was unsuccessful. He mentions that his legs are just about useless and that he relies on a lift chair or full assist to get up. He is curious about the oit-ls-udbth device that the facility plans to use, as he recently purchased one for home use as well. Tam also reports issues with swallowing due to cervical stenosis. He is very careful when swallowing and mentions that his body has adjusted to the slow onset of symptoms. Speech therapy followed inpatient and currently. His bowel movements are currently regular, and he is careful about his diet to avoid constipation or diarrhea. PAST MEDICAL HISTORY Diagnosis Date Amblyopia Ankle fracture 01/21/2021 left Lumbar stenosis Pseudophakia, both eyes Spondylosis with myelopathy, lumbar region SUBJECTIVE: Review of Systems Constitutional (more content not included)... [facility] 03-14-2025 History of Present illness Narrative Images from the original note were not included. Connected Care Unit Progress Note Patient Name: Tam Walsh Patient Facility: [facility] Admit Date 03/10/25 Level of Care: Skilled SNF Attending: Kevin Mckeon M.D. Service Date: 03/14/2025 Code Status: Full Chief Complaint: Evaluation regarding debility and rehabilitation ASSESSMENT AND PLAN (R53.1) Weakness (primary encounter diagnosis) (R29.6) Recurrent falls Encourage to ask for assistance for mobility Physical/occupational therapy (M48.02) Cervical stenosis of spine MRI and CT of thoracic and lumbar spine done during admission with no findings felt to be surgical candidate per spinal surgery Awaiting OP EMGs PRN Ibuprofen Follow up ortho, Dr. Baldwin Follow up neuro, Dr. Angel (I10) Hypertension, unspecified type (E78.5) Hyperlipidemia, unspecified hyperlipidemia type Continue Pravastatin and triamterene-HCTZ Monitor VS Monitor labs (E03.9) Hypothyroidism, unspecified type Continue Synthroid (K21.9) Gastroesophageal reflux disease, unspecified whether esophagitis present Continue PPI (R13.19) Other dysphagia Secondary to cervical stenosis Speech following (R53.81) Debility Certify therapies Maintain high falls risk precautions - pt/staff verbalize understanding validated via teach back Monitor safety awareness HPI: (Per hospital discharge 03/10/25) Weakness Multiple falls Patient was admitted to an [facility] due to increasing weakness and multiple falls Plan was for him to work with PT/OT with possible placement on discharge He was transferred here to [facility] due to facility's inability to perform MRIs with anesthesia Neurology consulted Following their evaluation and review of imaging lower extremity weakness and falls were believed to be due to increasing debility in an older gentleman with prior back surgeries, upper extremity weakness was thought to be due to spinal stenosis (see below) Patient worked with PT/OT here, placement was recommended on discharge and he was agreeable Cervical spine stenosis This was thought to be contributing to patient's falls at the [facility] MRI was recommended but was unable to be done as the patient wished to have it done with anesthesia MRI of the cervical spine with anesthesia done here on 02/28, severe foraminal narrowing seen at C4-C5 MRIs and CTs of the thoracic and lumbar spine also done, findings showed extensive postoperative changes but no significant stenosis Spine surgery consutled They were not convinced patient's symptoms could be explained by stenosis alone MRI brain ordered and found to be largely unrevealing Outpatient EMG recommended, neurology referral made on discharge Chronic comorbidities Hypertension Hyperlipidemia Hypothyroidism Neuropathy GERD Patient discharged to SNF on 03/10. 03/14/25 Tam Walsh is a 74-year-old male, with a history of multiple back surgeries and cervical stenosis, seen today for evaluation of current condition and therapy progress. Tam reports feeling sad due to his current situation in the facility. He has a history of three back surgeries performed at [facility], and his back is deteriorating along with the hardware. He mentions that there is nothing more that can be done surgically, and he expects his condition to slowly worsen. At home, Tam has three lift chairs and a setup that allows him to get up during the day with the help of a therapy belt and a chain hoist anchored to the ceiling. This setup enables him to perform some exercises, such as marching and deep knee bends. However, in the facility, he feels limited and unable to perform these activities. He will talk to therapy about some bed exercises he can perform in between sessions. Tam describes his therapy sessions as inconsistent. Two days ago, he was able to stand with the help of a stronger therapist, but yesterday, the attempt to stand was unsuccessful. He mentions that his legs are just about useless and that he relies on a lift chair or full assist to get up. He is curious about the yeh-cr-tiruo device that the facility plans to use, as he recently purchased one for home use as well. Tam also reports issues with swallowing due to cervical stenosis. He is very careful when swallowing and mentions that his body has adjusted to the slow onset of symptoms. Speech therapy followed inpatient and currently. His bowel movements are currently regular, and he is careful about his diet to avoid constipation or diarrhea. PAST MEDICAL HISTORY Diagnosis Date Amblyopia Ankle fracture 01/21/2021 left Lumbar stenosis Pseudophakia, both eyes Spondylosis with myelopathy, lumbar region SUBJECTIVE: Review of Systems Constitutional: Positive for activity change. Negative for appetite change and fever. HENT: Positive for trouble swallowing. Negative for congestion. Eyes: Negative for discharge and itching. Respiratory: Negative for cough, shortness of breath and wheezing. Cardiovascular: Negative for chest pain, palpitations and leg swelling. Gastrointestinal: Negative for abdominal distention, abdominal pain, constipation, diarrhea, nausea and vomiting. Endocrine: Negative for cold intolerance and heat intolerance. Genitourinary: Negative for difficulty urinating. Musculoskeletal: Positive for arthralgias, back pain and myalgias. Skin: Negative for color change, rash and wound. Neurological: Positive for weakness. Psychiatric/Behavioral: Negative for confusion. Medications: Medications listed in Epic during SNF admission may not be current. Refer to facility record. Patient records, current medications, most recent labs, family/social history (unchanged) Reviewed. Refer to facility records. OBJECTIVE: Labs/diagnostics: Latest Reference Range & Units 03/10/25 06:41 Sodium 136 - 145 mmol/L 136 Potassium 3.5 - 5.1 mmol/L 4.1 Chloride 98 - 107 mmol/L 101 CO2 21 - 32 mmol/L 25 BUN 7 - 26 mg/dL 19 Creatinine 0.50 - 1.40 mg/dL 0.32 (L) Glucose 70 - 100 mg/dL 83 Protein, Total 6.0 - 8.5 g/dL 6.2 Calcium 8.5 - 10.5 mg/dL 8.7 Magnesium 1.6 - 2.6 mg/dL 1.9 Albumin 3.2 - 5.0 g/dL 2.9 (L) Bilirubin, Total 0.2 - 1.0 mg/dL 0.8 Alkaline Phosphatase 45 - 117 U/L 168 (H) ALT 13 - 61 U/L 32 AST 8 - 34 U/L 28 Anion Gap 5 - 16 mmol/L 10 eGFR >=60 mL/min/1.73m 122 WBC 3.70 - 11.00 k/uL 6.09 RBC 4.20 - 6.00 m/uL 4.02 (L) Hemoglobin 13.0 - 17.0 g/dL 13.1 Hematocrit 39.0 - 51.0 % 38.1 (L) Platelet Count 150 - 400 k/uL 252 MCV 80.0 - 100.0 fL 94.8 MCH 26.0 - 34.0 pg 32.6 MCHC 30.5 - 36.0 g/dL 34.4 MPV 9.0 - 12.7 fL 9.7 RDW-CV 11.5 - 15.0 % 13.5 Absolute nRBC <0.01 k/uL <0.01 (L): Data is abnormally low (H): Data is abnormally high Vital Signs: BP 123/81 Pulse 78 Resp 20 SpO2 96% Physical Exam: Physical Exam Constitutional: Appearance: Normal appearance. HENT: Head: Normocephalic. Eyes: Extraocular Movements: Extraocular movements intact. Cardiovascular: Rate and Rhythm: Normal rate and regular rhythm. Heart sounds: Normal heart sounds. Pulmonary: Effort: Pulmonary effort is normal. Breath sounds: Normal breath sounds. Abdominal: General: Abdomen is flat. Bowel sounds are normal. Palpations: Abdomen is soft. Musculoskeletal: General: Normal range of motion. Skin: General: Skin is warm and dry. Neurological: General: No focal deficit present. Mental Status: He is alert and oriented to person, place, and time. Motor: Weakness present. Psychiatric: Mood and Affect: Mood normal. Behavior: Behavior normal. POC discussed with appropriate parties and nursing staff. I spent a total of 30 minutes on the date of the service which included preparing to see the patient, [id number] patient care, completing clinical documentation, obtaining and/or reviewing separately obtained history, performing a medically appropriate examination, counseling and educating the patient/family/caregiver, ordering medications, tests, or procedures, communicating with other HCPs (not separately reported), independently interpreting results (not separately reported), communicating results to the patient/family/caregiver, and care coordination (not separately reported). This note was partially generated using Neo[employer] recognition system. Electronically signed by Mary Luis APRN.DIRECTOR OF SUPPLY CHAIN documented in this encounter [facility] 03-10-2025 Note HNO ID: [id number] Author: CARISA LUIS RN Service: Nursing Author Type: Registered Nurse Type: Nursing Progress Note Filed: 03/10/2025 12:11 Note Text: Report called to [facility] bonita pike , pt and family aware. [facility] 03-10-2025 Note HNO ID: [id number] Author: CARROL SALAS LSW Service: Care Management Author Type: Charm Filter Operator Helper Type: Care Mgt Progress Note Filed: 03/10/2025 12:49 Note Text: CARE MANAGEMENT DISCHARGE NOTE SERVICE DATE: March 10, 2025 SERVICE TIME: 10:46 AM Admission Date: 02/26/2025 LOS: 12 days Discharge Arrangement: SNF Services Arranged: n/a Provider Name: Toñito Cardona Caregiver Assessment Transportation Arrangements: [place] [facility] [place] Handoff Communication: yes Additional Information: Patient is discharged today to [facility] Steve Cardona under a skilled level of care. Facility has been notified. Patient has already informed his family regarding the transition. This case is now closed. Discharge Information Row Name Admission (Current) from 02/26/2025 in [facility] Garry Cardona - [address] [address] SIGNATURE: RAJAT Ellison PATIENT NAME: Tam Cervantes Eclem DATE: March 10, 2025 TIME: 10:46 AM [facility] 03-09-2025 Note HNO ID: [id number] Author: VAIBHAV AUGUSTE AA Service: ? 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 Staffing Anesthesiologist: Jose Roberto Argueta MD CAA: Vaibhav Auguste AA Performed by: GRISELDA Indications and Patient Condition Indications for airway management: anesthesia Preoxygenated: yes anesthesia circuit Patient position: sniffing Method: asleep Final Airway Details Final airway type: supraglottic airway Number of attempts at approach: 1 Final Supraglottic Airway: i-gel Size 5 Seal Adequate: yes SIGNATURE: RUFINO Goldman PATIENT NAME: Tam Cervantes Eclem DATE: March 09, 2025 TIME: 3:27 PM CSN: [id number] [facility] 03-09-2025 Note HNO ID: [id number] Author: PAPA MIKE RT(Lito) Service: ? Author Type: Technologist Type: Progress Notes Filed: 03/09/2025 15:17 Note Text: Radiology Service Progress Note DATE OF SERVICE: March 09, 2025 TIME: 3:00 PM PATIENT IDENTITY VERIFICATION COMPLETED USING TWO (2) STANDARD IDENTIFIERS: Name and Date of confirmed by patient verbally. FALL SCREENING: Has the patient had 2 falls in the last year or 1 fall with injury or currently using an Ambulatory Assistive Device (Walker, Cane, Wheelchair, Crutches, etc.)? No PATIENT GENDER DATA: Assigned male at PATIENT RELEVANT IMPLANT DATA REVIEWED: Yes PATIENT PRESENTS WITH AN IMPLANTABLE OR ATTACHED MARKET INTELLIGENCE CONSULTANT: No ALLERGIES: Reviewed and unchanged CONTRAST ALLERGY: NO. EXAM: MRI - CONTRAST TYPE: GROUP II PERIPHERAL IV DATA: Inpatient - refer to [facility] documentation RADIOLOGY DEPARTMENT: MR; Exam(s) Completed: Head: Routine Brain. Aromatherapy Administered: No SIGNATURE: RT Bianka(R)(MR)(CT) PATIENT NAME: Tam Cervantes Eclem DATE: March 09, 2025 TIME: 3:00 PM 8 cc of Elucirem given iv by tmb5 @ 1505 no reaction [facility] 03-09-2025 Note HNO ID: [id number] Author: RENA LEUNG DO Service: Hospital Medicine Author Type: Physician Type: Progress Notes Filed: 03/09/2025 14:44 Note Text: PROGRESS NOTE SERVICE DATE: 03/09/2025 SERVICE TIME: 2:43 PM PRIMARY SERVICE: Internal Medicine CHIEF COMPLAINT: Weakness INTERVAL HPI: Patient seen and examined, discussed with house staff and RN. No significant overnight issues. BP 146/70 Pulse 71 Temp (Src) 97.9 (Temporal) Resp 16 Ht 5' 11 (1.80m) Wt 191 lb 5.8 oz (86.8kg) SpO2 98% BMI 26.70 kg/(m2). O2 Therapy: Room Air, Liters (Numeric Only): 10.7 PHYSICAL EXAM: General: alert and oriented x3, resting comfortably Neck: supple, no hepatojugular reflux or jugular venous distention, no carotid bruits Lungs: clear to auscultation bilaterally, no wheezing, rales, or rhonchi Cardiac: regular rate and rhythm, normal S1 and S2, no murmurs, gallops, or rubs Abdomen: soft, nontender, nondistended, bowel sounds present Extremities: no edema, cyanosis, or clubbing Skin: no rashes or breakdown Lymphatic: no cervical or supraclavicular lymphadenopathy Neurologic: bilateral lower extremity weakness, cranial nerves II-XII are grossly intact Psychiatry: normal affect, no hallucinations, no suicidal ideation Current Facility-Administered Medications Medication Dose Route Frequency NaCl 0.9% iv flush bag 20 mL INTRAVENOUS PRN aspirin 81 mg chewable tab(s) 81 mg ORAL DAILY pantoprazole DR 40 mg tab(s) (PROTONIX) 40 mg ORAL DAILY polyethylene glycol 3350 17 g packet 17 g ORAL DAILY PRN acetaminophen 500 mg tab(s) (TYLENOL) 500 mg ORAL q 8 H PRN diphenhydrAMINE 25 mg capsule (BENADRYL) 25 mg ORAL AT BEDTIME PRN levothyroxine 25 mcg tab(s) (SYNTHROID) 25 mcg ORAL DAILY (6 AM) heparin 5,000 Units injection 5,000 Units SUBCUTANEOUS q 12 H oxyCODONE IR 5 mg tab(s) (ROXICODONE) 5 mg ORAL q 8 H PRN Facility-Administered Medications Ordered in Other Encounters Medication Dose Route Frequency propofol injection (DIPRIVAN) INTRAVENOUS PRN lidocaine (PF) 20 mg/mL (2 %) injection (XYLOCAINE) INTRAVENOUS PRN DATA: WBC (k/uL) Date Value 03/09/2025 6.89 RBC (m/uL) Date Value 03/09/2025 4.21 Hemoglobin (g/dL) Date Value 03/09/2025 13.5 Hematocrit (%) Date Value 03/09/2025 39.4 MCV (fL) Date Value 03/09/2025 93.6 MCH (pg) Date Value 03/09/2025 32.1 MCHC (g/dL) Date Value 03/09/2025 34.3 RDW-CV (%) Date Value 03/09/2025 13.6 Platelet Count (k/uL) Date Value 03/09/2025 275 MPV (fL) Date Value 03/09/2025 9.7 Glucose (mg/dL) Date Value 03/09/2025 86 BUN (mg/dL) Date Value 03/09/2025 20 Creatinine (mg/dL) Date Value 03/09/2025 0.32 (L) Sodium (mmol/L) Date Value 03/09/2025 135 (L) Potassium (mmol/L) Date Value 03/09/2025 4.1 Chloride (mmol/L) Date Value 03/09/2025 100 CO2 (mmol/L) Date Value 03/09/2025 26 Protein, Total (g/dL) Date Value 03/09/2025 6.3 Albumin (g/dL) Date Value 03/09/2025 3.0 (L) Calcium, Total (mg/dL) Date Value 03/09/2025 9.2 Alkaline Phosphatase (U/L) Date Value 03/09/2025 185 (H) Bilirubin, Total (mg/dL) Date Value 03/09/2025 0.7 AST (U/L) Date Value 03/09/2025 30 ALT (U/L) Date Value 03/09/2025 37 ASSESSMENT AND PLAN: Weakness Multiple falls Patient was admitted to an [facility] due to increasing weakness and multiple falls Plan was for him to work with PT/OT with possible placement on discharge Patient has worked with PT/OT here, placement has been recommended and he is agreeable Appreciate case management assistance with discharge planning Neurology following Increasing lower extremity weakness and falls are believed to be due to increasing debility in an older gentleman with prior back surgeries, upper extremity weakness is believed to be due to spinal stenosis (see below) Cervical spine stenosis This was thought to be contributing to patient's falls at the [facility] MRI was recommended but was unable to be done as the patient wished to have it done with anesthesia MRI of the cervical spine with anesthesia done here on 02/28, severe foraminal narrowing seen at C4-C5 MRIs and CTs of the thoracic and lumbar spine also done, findings showed extensive postoperative changes but no significant stenosis Spine surgery following I spoke wit Dr. Baldwin on 03/06, he was not convinced patient's symptoms can be explained by stenosis alone, he recommended re-ordering MRI of the brain (to be done this afternoon) Chronic comorbidities Hypertension Hyperlipidemia Hypothyroidism Neuropathy GERD SIGNATURE: Rena Leung DO PATIENT NAME: Tam Cervantes Ayanagriselda DATE: March 09, 2025 TIME: 2:43 PM [facility] 03-09-2025 Note HNO ID: [id number] Author: TAWNYA WOLFE RN Service: Care Management Author Type: Registered Nurse Type: Care Mgt Progress Note Filed: 03/09/2025 16:39 Note Text: CARE MANAGEMENT PROGRESS NOTE SERVICE DATE: 03/09/2025 SERVICE TIME: 8:46 AM LOS: 11 days IMM Follow Up Copy Given: Yes Copy given to:: Patient Method: In Person Chart reviewed. Patient presented to [facility] ED with increasing weakness. Transferred from [facility] for MRI w/ Anesthesia needs. MRI with Anesthesia completed 02/28 which showed multiple concerns in the cervical spine to include budged discs with ventral cord contact and severe narrowing. Orthopaedic Surgery consulted and there is consideration of surgical intervention to which the patient is agreeable to. Patient is AANDOX4 from Home with Spouse. Patient reports they're functionally Independent with most ADLs utilizing his DME, but provides assistance, they share IADLs, provides transport at baseline. Has PCP Tacos Dye MD [phone]. Has medical and Rx coverage. Difficulty obtaining or affording medications denied. Reports Cane, BSC, Rollator (had breaks on), shower chair, Lift chair, stair lift chair, murray lift with gait belt as DME use. PT/OT are recommending SNF. [facility], [facility], or [facility]. CM sent referrals. [facility] has declined. [facility] pending. has been unable to receive a response. CM has spoken with [facility] at [phone] who directed me to [facility] at [phone]. left with call back information. 03/07 1430 [facility] available on Wednesday. Patient is agreeable. PASRR completed and all forms. Precert has been obtained and is valid 03/08-03/14. notified MD. Patient will need ambulance cot transport and is agreeable to any potential out of pocket costs associated with transport. DC packet on chart. Transport pended in [facility]. BARRIERS TO D/C: MRI of the Brain scheduled for 03/10. Bed available at [facility] after 1pm on 03/10. CM will continue to follow for d/c planning and needs. SIGNATURE: Tawnya oWlfe RN PATIENT NAME: Tam Cervantes Nico DATE: March 09, 2025 TIME: 8:46 AM [facility] 03-08-2025 Note HNO ID: [id number] Author: ROSENDA BERUMEN RT(R) Service: Radiology Author Type: Technologist Type: Progress Notes Filed: 03/08/2025 15:02 Note Text: Summary: MRI RADIOLOGY SERVICE PROGRESS NOTE DATE OF SERVICE: March 08, 2025 TIME OF SERVICE: 1501 EVENT: MRI BRAIN WITH ANESTHESIA SCHEDULED FOR 1400 03/09/25 ADDITIONAL EVENT DETAILS: N/A SIGNATURE: RT [place](R)(MR) PATIENT NAME: Tam Walsh DATE: March 08, 2025 TIME: 3:01 PM PAGER/CONTACT #: [facility] 03-08-2025 Note HNO ID: [id number] Author: RENA LEUNG DO Service: Hospital Medicine Author Type: Physician Type: Progress Notes Filed: 03/08/2025 11:26 Note Text: PROGRESS NOTE SERVICE DATE: 03/08/2025 SERVICE TIME: 11:25 AM PRIMARY SERVICE: Internal Medicine CHIEF COMPLAINT: Weakness INTERVAL HPI: Patient seen and examined, discussed with house staff and RN. No significant overnight issues. BP 119/64 Pulse 75 Temp (Src) 97.8 (Oral) Resp 16 Ht 5' 11 (1.80m) Wt 197 lb 5 oz (89.5kg) SpO2 95% BMI 27.53 kg/(m2). O2 Therapy: Room Air PHYSICAL EXAM: General: alert and oriented x3, resting comfortably Neck: supple, no hepatojugular reflux or jugular venous distention, no carotid bruits Lungs: clear to auscultation bilaterally, no wheezing, rales, or rhonchi Cardiac: regular rate and rhythm, normal S1 and S2, no murmurs, gallops, or rubs Abdomen: soft, nontender, nondistended, bowel sounds present Extremities: no edema, cyanosis, or clubbing Skin: no rashes or breakdown Lymphatic: no cervical or supraclavicular lymphadenopathy Neurologic: bilateral lower extremity weakness, cranial nerves II-XII are grossly intact Psychiatry: normal affect, no hallucinations, no suicidal ideation Current Facility-Administered Medications Medication Dose Route Frequency NaCl 0.9% iv flush bag 20 mL INTRAVENOUS PRN aspirin 81 mg chewable tab(s) 81 mg ORAL DAILY pantoprazole DR 40 mg tab(s) (PROTONIX) 40 mg ORAL DAILY polyethylene glycol 3350 17 g packet 17 g ORAL DAILY PRN acetaminophen 500 mg tab(s) (TYLENOL) 500 mg ORAL q 8 H PRN diphenhydrAMINE 25 mg capsule (BENADRYL) 25 mg ORAL AT BEDTIME PRN levothyroxine 25 mcg tab(s) (SYNTHROID) 25 mcg ORAL DAILY (6 AM) heparin 5,000 Units injection 5,000 Units SUBCUTANEOUS q 12 H oxyCODONE IR 5 mg tab(s) (ROXICODONE) 5 mg ORAL q 8 H PRN iv contrast (radiology procedure) INTRAVENOUS DIRECTED PRN DATA: WBC (k/uL) Date Value 03/08/2025 7.51 RBC (m/uL) Date Value 03/08/2025 4.14 (L) Hemoglobin (g/dL) Date Value 03/08/2025 13.2 Hematocrit (%) Date Value 03/08/2025 38.6 (L) MCV (fL) Date Value 03/08/2025 93.2 MCH (pg) Date Value 03/08/2025 31.9 MCHC (g/dL) Date Value 03/08/2025 34.2 RDW-CV (%) Date Value 03/08/2025 13.5 Platelet Count (k/uL) Date Value 03/08/2025 275 MPV (fL) Date Value 03/08/2025 9.7 Glucose (mg/dL) Date Value 03/08/2025 93 BUN (mg/dL) Date Value 03/08/2025 21 Creatinine (mg/dL) Date Value 03/08/2025 0.45 (L) Sodium (mmol/L) Date Value 03/08/2025 138 Potassium (mmol/L) Date Value 03/08/2025 4.4 Chloride (mmol/L) Date Value 03/08/2025 102 CO2 (mmol/L) Date Value 03/08/2025 27 Protein, Total (g/dL) Date Value 03/08/2025 6.5 Albumin (g/dL) Date Value 03/08/2025 3.1 (L) Calcium, Total (mg/dL) Date Value 03/08/2025 9.2 Alkaline Phosphatase (U/L) Date Value 03/08/2025 186 (H) Bilirubin, Total (mg/dL) Date Value 03/08/2025 0.7 AST (U/L) Date Value 03/08/2025 29 ALT (U/L) Date Value 03/08/2025 43 ASSESSMENT AND PLAN: Weakness Multiple falls Patient was admitted to [facility] due to increasing weakness and multiple falls Plan was for him to work with PT/OT with possible placement on discharge Patient has worked with PT/OT here, placement has been recommended and he is agreeable Appreciate case management assistance with discharge planning Neurology following Increasing lower extremity weakness and falls are believed to be due to increasing debility in an older gentleman with prior back surgeries, upper extremity weakness is believed to be due to spinal stenosis (see below) Cervical spine stenosis This was thought to be contributing to patient's falls at the [facility] MRI was recommended but was unable to be done as the patient wished to have it done with anesthesia MRI of the cervical spine with anesthesia done here on 02/28, severe foraminal narrowing seen at C4-C5 MRIs and CTs of the thoracic and lumbar spine also done, findings showed extensive postoperative changes but no significant stenosis Spine surgery following I spoke wit Dr. Baldwin on 03/06, he was not convinced patient's symptoms can be explained by stenosis alone, he recommended re-ordering MRI of the brain Chronic comorbidities Hypertension Hyperlipidemia Hypothyroidism Neuropathy GERD SIGNATURE: Rena Leung DO PATIENT NAME: Tam Cervantes Eclem DATE: March 08, 2025 TIME: 11:25 AM [facility] 03-08-2025 Note HNO ID: [id number] Author: TAWNYA WOLFE RN Service: Care Management Author Type: Registered Nurse Type: Care Mgt Progress Note Filed: 03/08/2025 23:09 Note Text: CARE MANAGEMENT PROGRESS NOTE SERVICE DATE: 03/08/2025 SERVICE TIME: 9:02 AM LOS: 10 days Chart reviewed. Patient presented to [facility] ED with increasing weakness. Transferred from [facility] for MRI w/ Anesthesia needs. MRI with Anesthesia completed 02/28 which showed multiple concerns in the cervical spine to include budged discs with ventral cord contact and severe narrowing. Orthopaedic Surgery consulted and there is consideration of surgical intervention to which the patient is agreeable to. Patient is AANDOX4 from Home with Spouse. Patient reports they're functionally Independent with most ADLs utilizing his DME, but provides assistance, they share IADLs, provides transport at baseline. Has PCP Tacos Dye MD [phone]. Has medical and Rx coverage. Difficulty obtaining or affording medications denied. Reports Cane, BSC, Rollator (had breaks on), shower chair, Lift chair, stair lift chair, murray lift with gait belt as DME use. PT/OT are recommending SNF. [facility], [facility], or [facility]. CM sent referrals. [facility] has declined. [facility] pending. has been unable to receive a response. MELANIE has spoken with [facility] at [phone] who directed me to [facility] at [phone]. left with call back information. 03/07 1430 [facility] notified CM that they will have a semi-private bed available on Wednesday. Patient is agreeable. PASRR completed and all forms. Facility has initiated precert. [facility] was tasked to follow. Patient will need ambulance cot transport and is agreeable to any potential out of pocket costs associated with transport. DC packet on chart. Transport pended in [facility]. BARRIERS TO D/C: MRI of the Brain. PRECERT PENDING TO SNF. CM will continue to follow for d/c planning and needs. UPDATE 1600 Precert approved for patient to admit to SNF [facility]. Valid 03/08-03/14. CM notified MD. Patient is still waiting for an MRI of the Brain with anesthesia. [facility] will have a bed ready on Wednesday AFTER 1pm. SIGNATURE: Tawnya Wolfe RN PATIENT NAME: Tam Cervantes [facility] DATE: March 08, 2025 TIME: 9:02 AM [facility] 03-08-2025 Note HNO ID: [id number] Author: KEYANA US RT(R) Service: Radiology Author Type: Technologist Type: Progress Notes Filed: 03/08/2025 06:34 Note Text: Summary: MRI RADIOLOGY SERVICE PROGRESS NOTE DATE OF SERVICE: March 08, 2025 TIME OF SERVICE: 06:34 EVENT: Need MRI Screening Sheet. ADDITIONAL EVENT DETAILS: N/A SIGNATURE: RT [place](R)() [facility] DATE: March 08, 2025 TIME: 6:34 AM PAGER/CONTACT #: [facility] 03-07-2025 Note HNO ID: [id number] Author: RENA LEUNG DO Service: Hospital Medicine Author Type: Physician Type: Progress Notes Filed: 03/07/2025 18:17 Note Text: PROGRESS NOTE SERVICE DATE: 03/07/2025 SERVICE TIME: 6:15 PM PRIMARY SERVICE: Internal Medicine CHIEF COMPLAINT: Weakness INTERVAL HPI: Patient seen and examined, discussed with house staff and RN. No significant overnight issues. BP 118/67 Pulse 81 Temp (Src) 98.5 (Oral) Resp 16 Ht 5' 11 (1.80m) Wt 198 lb 10.2 oz (90.1kg) SpO2 95% BMI 27.72 kg/(m2). O2 Therapy: Room Air PHYSICAL EXAM: General: alert and oriented x3, resting comfortably Neck: supple, no hepatojugular reflux or jugular venous distention, no carotid bruits Lungs: clear to auscultation bilaterally, no wheezing, rales, or rhonchi Cardiac: regular rate and rhythm, normal S1 and S2, no murmurs, gallops, or rubs Abdomen: soft, nontender, nondistended, bowel sounds present Extremities: no edema, cyanosis, or clubbing Skin: no rashes or breakdown Lymphatic: no cervical or supraclavicular lymphadenopathy Neurologic: bilateral lower extremity weakness, cranial nerves II-XII are grossly intact Psychiatry: normal affect, no hallucinations, no suicidal ideation Current Facility-Administered Medications Medication Dose Route Frequency NaCl 0.9% iv flush bag 20 mL INTRAVENOUS PRN aspirin 81 mg chewable tab(s) 81 mg ORAL DAILY pantoprazole DR 40 mg tab(s) (PROTONIX) 40 mg ORAL DAILY polyethylene glycol 3350 17 g packet 17 g ORAL DAILY PRN acetaminophen 500 mg tab(s) (TYLENOL) 500 mg ORAL q 8 H PRN diphenhydrAMINE 25 mg capsule (BENADRYL) 25 mg ORAL AT BEDTIME PRN levothyroxine 25 mcg tab(s) (SYNTHROID) 25 mcg ORAL DAILY (6 AM) heparin 5,000 Units injection 5,000 Units SUBCUTANEOUS q 12 H oxyCODONE IR 5 mg tab(s) (ROXICODONE) 5 mg ORAL q 8 H PRN iv contrast (radiology procedure) INTRAVENOUS DIRECTED PRN DATA: WBC (k/uL) Date Value 03/07/2025 7.32 RBC (m/uL) Date Value 03/07/2025 4.20 Hemoglobin (g/dL) Date Value 03/07/2025 13.6 Hematocrit (%) Date Value 03/07/2025 40.2 MCV (fL) Date Value 03/07/2025 95.7 MCH (pg) Date Value 03/07/2025 32.4 MCHC (g/dL) Date Value 03/07/2025 33.8 RDW-CV (%) Date Value 03/07/2025 13.9 Platelet Count (k/uL) Date Value 03/07/2025 263 MPV (fL) Date Value 03/07/2025 9.4 Glucose (mg/dL) Date Value 03/07/2025 96 BUN (mg/dL) Date Value 03/07/2025 23 Creatinine (mg/dL) Date Value 03/07/2025 0.39 (L) Sodium (mmol/L) Date Value 03/07/2025 137 Potassium (mmol/L) Date Value 03/07/2025 4.2 Chloride (mmol/L) Date Value 03/07/2025 103 CO2 (mmol/L) Date Value 03/07/2025 28 Protein, Total (g/dL) Date Value 03/07/2025 6.3 Albumin (g/dL) Date Value 03/07/2025 3.0 (L) Calcium, Total (mg/dL) Date Value 03/07/2025 8.9 Alkaline Phosphatase (U/L) Date Value 03/07/2025 185 (H) Bilirubin, Total (mg/dL) Date Value 03/07/2025 0.6 AST (U/L) Date Value 03/07/2025 36 (H) ALT (U/L) Date Value 03/07/2025 51 ASSESSMENT AND PLAN: Weakness Multiple falls Patient was admitted to [facility] due to increasing weakness and multiple falls Plan was for him to work with PT/OT with possible placement on discharge Patient has worked with PT/OT here, placement has been recommended and he is agreeable Appreciate case management assistance with discharge planning Neurology following Increasing lower extremity weakness and falls are believed to be due to increasing debility in an older gentleman with prior back surgeries, upper extremity weakness is believed to be due to spinal stenosis (see below) Cervical spine stenosis This was thought to be contributing to patient's falls at the [facility] MRI was recommended but was unable to be done as the patient wished to have it done with anesthesia MRI of the cervical spine with anesthesia done here on 02/28, severe foraminal narrowing seen at C4-C5 MRIs and CTs of the thoracic and lumbar spine also done, findings showed extensive postoperative changes but no significant stenosis Spine surgery following I spoke wit Dr. Baldwin yesterday, he is not convinced patient's symptoms can be explained by stenosis alone, he recommends re-ordering MRI of the brain Chronic comorbidities Hypertension Hyperlipidemia Hypothyroidism Neuropathy GERD SIGNATURE: Rena Leung DO PATIENT NAME: Tam Cervantes Nico DATE: March 07, 2025 TIME: 6:15 PM [facility] 03-07-2025 Note HNO ID: [id number] Author: TAWNYA WOLFE RN Service: Care Management Author Type: Registered Nurse Type: Care Mgt Progress Note Filed: 03/07/2025 14:50 Note Text: CARE MANAGEMENT PROGRESS NOTE SERVICE DATE: 03/07/2025 SERVICE TIME: 2:48 PM LOS: 9 days Chart reviewed. Patient presented to [facility] ED with increasing weakness. Transferred from [facility] for MRI w/ Anesthesia needs. MRI with Anesthesia completed 02/28 which showed multiple concerns in the cervical spine to include budged discs with ventral cord contact and severe narrowing. Orthopaedic Surgery consulted and there is consideration of surgical intervention to which the patient is agreeable to. Patient is AANDOX4 from Home with Spouse. Patient reports they're functionally Independent with most ADLs utilizing his DME, but provides assistance, they share IADLs, provides transport at baseline. Has PCP Tacos Dye MD [phone]. Has medical and Rx coverage. Difficulty obtaining or affording medications denied. Reports Cane, BSC, Rollator (had breaks on), shower chair, Lift chair, stair lift chair, murray lift with gait belt as DME use. Final DC plan TBD. SNF vs HHC. PT/OT are recommending SNF. [facility], [facility], or [facility]. CM sent referrals. [facility] has declined. [facility] pending. has been unable to receive a response. CM has spoken with [facility] at [phone] who directed me to [facility] at [phone]. left with call back information. 03/07 1430 [facility] notified CM that they will have a semi-private bed available on Wednesday. Patient is agreeable. PASRR completed and all forms. Facility has initiated precert. [facility] was tasked to follow. Patient will need ambulance cot transport and is agreeable to any potential out of pocket costs associated with transport. DC packet on chart. Transport pended in [facility]. CM will continue to follow for d/c planning and needs. SIGNATURE: Tawnya Wolfe RN PATIENT NAME: Tam Walsh DATE: March 07, 2025 TIME: 2:48 PM [facility] 03-06-2025 Note HNO ID: [id number] Author: KRISTOFER BALDWIN MD Service: Orthopaedic Surgery Author Type: Physician Type: Progress Notes Filed: 03/06/2025 19:02 Note Text: Orthopaedic Spine Surgery Progress Note Saw and discussed imaging findings again with the patient. Patient with longstanding foot drop, but new onset of proximal muscle weakness in the lower extremities and inability to ambulate. These represent recent changes. Patient also with significant atrophy of the bilateral hands. MRI of the cervical spine demonstrates multilevel foraminal stenosis but no significant central stenosis. No cord compression. No significant central stenosis or cord compression within the thoracic spine to explain lower extremity weakness. Imaging findings are not consistent with weakness. Recommend continued workup for other sources. Additionally reviewed imaging with multiple partners who agreed that this would not explain the patient's symptoms. Recommend imaging of the brain to rule out any pathology there or further workup of other neuromuscular explanation for weakness. Please call/page with questions. Kristofer Baldwin MD Orthopaedic Spine Surgery [facility] 03-06-2025 Note HNO ID: [id number] Author: RENA LEUNG DO Service: Hospital Medicine Author Type: Physician Type: Progress Notes Filed: 03/06/2025 14:58 Note Text: PROGRESS NOTE SERVICE DATE: 03/06/2025 SERVICE TIME: 2:57 PM PRIMARY SERVICE: Internal Medicine CHIEF COMPLAINT: Weakness INTERVAL HPI: Patient seen and examined, discussed with house staff and RN. No significant overnight issues. BP 111/70 Pulse 89 Temp (Src) 98.2 (Oral) Resp 16 Ht 5' 11 (1.80m) Wt 200 lb 13.4 oz (91.1kg) SpO2 92% BMI 28.02 kg/(m2). O2 Therapy: Room Air PHYSICAL EXAM: General: alert and oriented x3, resting comfortably Neck: supple, no hepatojugular reflux or jugular venous distention, no carotid bruits Lungs: clear to auscultation bilaterally, no wheezing, rales, or rhonchi Cardiac: regular rate and rhythm, normal S1 and S2, no murmurs, gallops, or rubs Abdomen: soft, nontender, nondistended, bowel sounds present Extremities: no edema, cyanosis, or clubbing Skin: no rashes or breakdown Lymphatic: no cervical or supraclavicular lymphadenopathy Neurologic: bilateral lower extremity weakness, cranial nerves II-XII are grossly intact Psychiatry: normal affect, no hallucinations, no suicidal ideation Current Facility-Administered Medications Medication Dose Route Frequency NaCl 0.9% iv flush bag 20 mL INTRAVENOUS PRN aspirin 81 mg chewable tab(s) 81 mg ORAL DAILY pantoprazole DR 40 mg tab(s) (PROTONIX) 40 mg ORAL DAILY polyethylene glycol 3350 17 g packet 17 g ORAL DAILY PRN acetaminophen 500 mg tab(s) (TYLENOL) 500 mg ORAL q 8 H PRN diphenhydrAMINE 25 mg capsule (BENADRYL) 25 mg ORAL AT BEDTIME PRN levothyroxine 25 mcg tab(s) (SYNTHROID) 25 mcg ORAL DAILY (6 AM) heparin 5,000 Units injection 5,000 Units SUBCUTANEOUS q 12 H oxyCODONE IR 5 mg tab(s) (ROXICODONE) 5 mg ORAL q 8 H PRN DATA: WBC (k/uL) Date Value 03/06/2025 6.15 RBC (m/uL) Date Value 03/06/2025 4.02 (L) Hemoglobin (g/dL) Date Value 03/06/2025 12.9 (L) Hematocrit (%) Date Value 03/06/2025 37.4 (L) MCV (fL) Date Value 03/06/2025 93.0 MCH (pg) Date Value 03/06/2025 32.1 MCHC (g/dL) Date Value 03/06/2025 34.5 RDW-CV (%) Date Value 03/06/2025 13.6 Platelet Count (k/uL) Date Value 03/06/2025 276 MPV (fL) Date Value 03/06/2025 10.2 Glucose (mg/dL) Date Value 03/06/2025 102 (H) BUN (mg/dL) Date Value 03/06/2025 27 (H) Creatinine (mg/dL) Date Value 03/06/2025 0.40 (L) Sodium (mmol/L) Date Value 03/06/2025 137 Potassium (mmol/L) Date Value 03/06/2025 4.2 Chloride (mmol/L) Date Value 03/06/2025 101 CO2 (mmol/L) Date Value 03/06/2025 28 Protein, Total (g/dL) Date Value 03/06/2025 6.2 Albumin (g/dL) Date Value 03/06/2025 2.9 (L) Calcium, Total (mg/dL) Date Value 03/06/2025 8.7 Alkaline Phosphatase (U/L) Date Value 03/06/2025 185 (H) Bilirubin, Total (mg/dL) Date Value 03/06/2025 0.6 AST (U/L) Date Value 03/06/2025 40 (H) ALT (U/L) Date Value 03/06/2025 58 ASSESSMENT AND PLAN: Weakness Multiple falls Patient was admitted to [facility] due to increasing weakness and multiple falls Plan was for him to work with PT/OT with possible placement on discharge Patient has worked with PT/OT here, placement has been recommended and he is agreeable Appreciate case management assistance with discharge planning Neurology following Increasing lower extremity weakness and falls are believed to be due to increasing debility in an older gentleman with prior back surgeries, upper extremity weakness is believed to be due to spinal stenosis (see below) Cervical spine stenosis This was thought to be contributing to patient's falls at the [facility] MRI was recommended but was unable to be done as the patient wished to have it done with anesthesia MRI of the cervical spine with anesthesia done here on 02/28, severe foraminal narrowing seen at C4-C5 MRIs and CTs of the thoracic and lumbar spine also done, findings showed extensive postoperative changes but no significant stenosis Spine surgery following Appreciate their recommendations going forward Chronic comorbidities Hypertension Hyperlipidemia Hypothyroidism Neuropathy GERD SIGNATURE: Rena Leung DO PATIENT NAME: Tam Cervantes Eclgriselda DATE: March 06, 2025 TIME: 2:57 PM [facility] 03-06-2025 Note HNO ID: [id number] Author: TAWNYA WOLFE RN Service: Care Management Author Type: Registered Nurse Type: Care Mgt Progress Note Filed: 03/06/2025 15:05 Note Text: CARE MANAGEMENT PROGRESS NOTE SERVICE DATE: 03/06/2025 SERVICE TIME: 2:32 PM LOS: 8 days Chart reviewed. Patient presented to [facility] ED with increasing weakness. Transferred from [facility] for MRI w/ Anesthesia needs. MRI with Anesthesia completed 02/28 which showed multiple concerns in the cervical spine to include budged discs with ventral cord contact and severe narrowing. Orthopaedic Surgery consulted and there is consideration of surgical intervention to which the patient is agreeable to. Patient is AANDOX4 from Home with Spouse. Patient reports they're functionally Independent with most ADLs utilizing his DME, but provides assistance, they share IADLs, provides transport at baseline. Has PCP Tacos Dye MD [phone]. Has medical and Rx coverage. Difficulty obtaining or affording medications denied. Reports Cane, BSC, Rollator (had breaks on), shower chair, Lift chair, stair lift chair, murray lift with gait belt as DME use. Final DC plan TBD. SNF vs HHC. PT/OT are recommending SNF. FOC provided by patient and spouse is [facility], [facility], or [facility]. CM sent referrals. [facility] has declined. [facility] does not have any beds available. [facility] pending. has been unable to receive a response. CM has spoken with [facility] at [phone] who directed me to [facility] at [phone]. left with call back information. Would nee accepting facility, precert, PASRR, and all forms. If unable to find SNF then he would like to D/C home with [facility]. Patient will need ambulance cot transport and is agreeable to any potential out of pocket costs associated with transport. CM will continue to follow for d/c planning and needs. SIGNATURE: Tawnya Wolfe RN PATIENT NAME: Tam Cervantes Eclem DATE: March 06, 2025 TIME: 2:32 PM [facility] 03-05-2025 Note HNO ID: [id number] Author: RENA LEUNG DO Service: Hospital Medicine Author Type: Physician Type: Progress Notes Filed: 03/05/2025 19:19 Note Text: PROGRESS NOTE SERVICE DATE: 03/05/2025 SERVICE TIME: 7:13 PM PRIMARY SERVICE: Internal Medicine CHIEF COMPLAINT: Weakness INTERVAL HPI: Patient seen and examined, discussed with house staff and RN. No significant overnight issues. BP 101/80 Pulse 99 Temp (Src) 98.7 (Oral) Resp 16 Ht 5' 11 (1.80m) Wt 201 lb 4.5 oz (91.3kg) SpO2 93% BMI 28.09 kg/(m2). O2 Therapy: Room Air PHYSICAL EXAM: General: alert and oriented x3, resting comfortably Neck: supple, no hepatojugular reflux or jugular venous distention, no carotid bruits Lungs: clear to auscultation bilaterally, no wheezing, rales, or rhonchi Cardiac: regular rate and rhythm, normal S1 and S2, no murmurs, gallops, or rubs Abdomen: soft, nontender, nondistended, bowel sounds present Extremities: no edema, cyanosis, or clubbing Skin: no rashes or breakdown Lymphatic: no cervical or supraclavicular lymphadenopathy Neurologic: bilateral lower extremity weakness, cranial nerves II-XII are grossly intact Psychiatry: normal affect, no hallucinations, no suicidal ideation Current Facility-Administered Medications Medication Dose Route Frequency NaCl 0.9% iv flush bag 20 mL INTRAVENOUS PRN aspirin 81 mg chewable tab(s) 81 mg ORAL DAILY pantoprazole DR 40 mg tab(s) (PROTONIX) 40 mg ORAL DAILY polyethylene glycol 3350 17 g packet 17 g ORAL DAILY PRN acetaminophen 500 mg tab(s) (TYLENOL) 500 mg ORAL q 8 H PRN diphenhydrAMINE 25 mg capsule (BENADRYL) 25 mg ORAL AT BEDTIME PRN levothyroxine 25 mcg tab(s) (SYNTHROID) 25 mcg ORAL DAILY (6 AM) heparin 5,000 Units injection 5,000 Units SUBCUTANEOUS q 12 H oxyCODONE IR 5 mg tab(s) (ROXICODONE) 5 mg ORAL q 8 H PRN DATA: WBC (k/uL) Date Value 03/04/2025 6.52 RBC (m/uL) Date Value 03/04/2025 3.89 (L) Hemoglobin (g/dL) Date Value 03/04/2025 12.5 (L) Hematocrit (%) Date Value 03/04/2025 36.8 (L) MCV (fL) Date Value 03/04/2025 94.6 MCH (pg) Date Value 03/04/2025 32.1 MCHC (g/dL) Date Value 03/04/2025 34.0 RDW-CV (%) Date Value 03/04/2025 13.6 Platelet Count (k/uL) Date Value 03/04/2025 260 MPV (fL) Date Value 03/04/2025 9.9 Glucose (mg/dL) Date Value 03/04/2025 93 BUN (mg/dL) Date Value 03/04/2025 24 Creatinine (mg/dL) Date Value 03/04/2025 0.36 (L) Sodium (mmol/L) Date Value 03/04/2025 137 Potassium (mmol/L) Date Value 03/04/2025 4.2 Chloride (mmol/L) Date Value 03/04/2025 100 CO2 (mmol/L) Date Value 03/04/2025 28 Protein, Total (g/dL) Date Value 03/03/2025 6.2 Albumin (g/dL) Date Value 03/03/2025 2.9 (L) Calcium, Total (mg/dL) Date Value 03/04/2025 9.1 Alkaline Phosphatase (U/L) Date Value 03/03/2025 159 (H) Bilirubin, Total (mg/dL) Date Value 03/03/2025 0.8 AST (U/L) Date Value 03/03/2025 37 (H) ALT (U/L) Date Value 03/03/2025 55 ASSESSMENT AND PLAN: Weakness Multiple falls Patient was admitted to an [facility] due to increasing weakness and multiple falls Plan was for him to work with PT/OT with possible placement on discharge Patient has worked with PT/OT here, placement has been recommended and he is agreeable Appreciate case management assistance with discharge planning Neurology following Increasing lower extremity weakness and falls are believed to be due to increasing debility in an older gentleman with prior back surgeries, upper extremity weakness is believed to be due to spinal stenosis (see below) Cervical spine stenosis This was thought to be contributing to patient's falls a the [facility] MRI was recommended but was unable to be done as the patient wished to have it done with anesthesia MRI of the cervical spine with anesthesia done here on 02/28, severe foraminal narrowing seen at C4-C5 MRIs and CTs of the thoracic and lumbar spine also done, findings showed extensive postoperative changes but no significant stenosis Spine surgery following Appreciate their recommendations going forward Chronic comorbidities Hypertension Hyperlipidemia Hypothyroidism Neuropathy GERD SIGNATURE: Rena Leung DO PATIENT NAME: Tam Cervantes Eclem DATE: March 05, 2025 TIME: 7:13 PM [facility] 03-05-2025 Note HNO ID: [id number] Author: NANDA JAIME MD Service: Neurology General Author Type: Physician Type: Progress Notes Filed: 03/05/2025 15:47 Note Text: Inpatient Neurology Progress Note SERVICE DATE: 03/05/2025 Current Attending Provider: Rena Leung DO 74 yo RHWM with degenerative spine disease and with multiple thoracolumbar spine surgeries, revision and removal of hardware. He has been progressively getting weak and now difficulty with ambulation. He has b/l Foot drop and has been dragging his legs since 2014. He has had multiple spine surgeries prior to 2019. His pain and ambulation never improved post surgery. He has been using walker since 2018. There is no history of bladder or bowel incontinent. He has opiate induced constipation. Advil seems to help him with his pain He has had L1- L3 Laminectomy, T11- L3 fusion, L4-L5 decompression. He has been diagnosed with Spondylosis myelopathy. He has had prior surgeries By Dr. Brenton Mccabe, Dr. Oscar Gauthier, Lumbar Re-exploration, removal of hardware ( pedicle screws at L5 ) TLIF w3ith PSF on 02/22/2020: Dr. Porras Patient has cervical spine disease as well and now difficulty with swallow reflex. Patient denies symptoms associated with the neuromuscular disorder. Patient has sensory deficits as well therefore less likely to be motor neuron disease. Patient is awake and alert following commands. Patient is very active and does do physical therapy at home. Patient is very good historian and provides minor details about his routine exercises. He is very motivated to participate in rehab in an inpatient setting. Patient denies headaches, no nausea, no vomiting, no dizziness, no diplopia, No aphasia, no dysarthria, no change in pitch and or loudness of his speech. Complaints of neck and shoulder pain Current Facility-Administered Medications Medication Dose Route Frequency NaCl 0.9% iv flush bag 20 mL INTRAVENOUS PRN aspirin 81 mg chewable tab(s) 81 mg ORAL DAILY pantoprazole DR 40 mg tab(s) (PROTONIX) 40 mg ORAL DAILY polyethylene glycol 3350 17 g packet 17 g ORAL DAILY PRN acetaminophen 500 mg tab(s) (TYLENOL) 500 mg ORAL q 8 H PRN diphenhydrAMINE 25 mg capsule (BENADRYL) 25 mg ORAL AT BEDTIME PRN levothyroxine 25 mcg tab(s) (SYNTHROID) 25 mcg ORAL DAILY (6 AM) heparin 5,000 Units injection 5,000 Units SUBCUTANEOUS q 12 H oxyCODONE IR 5 mg tab(s) (ROXICODONE) 5 mg ORAL q 8 H PRN PAST MEDICAL HISTORY Diagnosis Date Amblyopia Ankle fracture 01/21/2021 left Lumbar stenosis Pseudophakia, both eyes Spondylosis with myelopathy, lumbar region PAST SURGICAL HISTORY Procedure Laterality Date BACK SURGERY HX 12/17/2015 L3-5 lami, T11-L3 fusion by Drs. Oscar Gauthier and Brenton Mccabe BACK SURGERY HX 09/2014 L3-5 decompression, fusion by Dr. Mccabe BACK SURGERY HX 02/22/2020 lumbar re-exploration, removal of hardware (pedicle screws at L5 AND cross-link between L4/L5), L4- S1 TLIF with PSF per Dr. Sanna Porras CATARACT EXTRACTION W/ INTRAOCULAR LENS IMPLANT HX Right 08/05/2017 Dr. Morejon CATARACT EXTRACTION W/ INTRAOCULAR LENS IMPLANT HX Left 08/12/2017 Dr. Morejon HAND SURGERY HX Left 1973 Social History Tobacco Use Smoking status: Never Smokeless tobacco: Never Vaping Use Vaping status: Never Used Substance Use Topics Alcohol use: No Drug use: Never FAMILY HISTORY Problem Relation Age of Onset Cataract Mother Ovarian cancer Mother Diabetes Paternal Grandfather other (SOFT TISSUE SARCOMA) Father ALLERGIES No Known Allergies GCS:E4+V5+M6= T15 ROS: All the 13 review of systems reviewed and the pertinent ones are mentioned in HPI PHYSICAL EXAM GENERAL: Patient is awake and alert following commands HEENT: EOMI, PERRL no nystagmus, no ptosis, no lid lag, no ophthalmoplegia No convergence palsy No divergence palsy NECK: No carotid bruit, + torticollis, no adenopathy, no thyromegaly RESPIRATORY: Clear to auscultation , no stridor, no wheezing CARDIOVASCULAR: Regular rate and rhythm, no murmurs rubs or gallops GI: Nondistended, bowel sounds present, soft, nontender MUSCULOSKELETAL/EXTREMITIES: No joint swelling, + edema SKIN:no rash, no vesicles no ecchymosis, venous stasis b/l L>R B/L foot drop Neurological: MENTAL STATUS: Patient is awake and alert following commands attention ,concentration, mood, reasoning, memory, cognition, affect all appropriate No hallucinations no delusions No language dysfunction CRANIAL NERVES: CNII: Visual burns full to confrontation CNIII, IV, : Pupils equal, round and reactive to light, full extraoccular movements, without nystagmus CN V: Facial sensation intact bilaterally to fine touch and pinprick, masseter 5/5 CN VII: Facial muscles symmetric and strong, No noted facial droop CN VIII: Hears finger rub well bilaterally CN IX: Gag Reflex Not examined CN X: Palate elevates symmetrically CN XI: Full strength shoul (more content not included)... [facility] 03-05-2025 Note HNO ID: [id number] Author: ROSENDA BERUMEN RT(R) Service: Radiology Author Type: Technologist Type: Progress Notes Filed: 03/05/2025 12:22 Note Text: Summary: MRI RADIOLOGY SERVICE PROGRESS NOTE DATE OF SERVICE: March 05, 2025 TIME OF SERVICE: 1222 EVENT: Brain MRI with anesthesia scheduled for 03/06/25 at 1400 ADDITIONAL EVENT DETAILS: N/A SIGNATURE: AMALIA GoldenR)(MR) PATIENT NAME: Tam Walsh DATE: March 05, 2025 TIME: 12:22 PM PAGER/CONTACT #: [facility] 03-05-2025 Note HNO ID: [id number] Author: TAWNYA WOLFE RN Service: Care Management Author Type: Registered Nurse Type: Care Mgt Progress Note Filed: 03/05/2025 11:08 Note Text: CARE MANAGEMENT PROGRESS NOTE SERVICE DATE: 03/05/2025 SERVICE TIME: 8:40 AM LOS: 7 days Chart reviewed. Patient presented to [facility] ED with increasing weakness. Transferred from [facility] for MRI w/ Anesthesia needs. MRI with Anesthesia completed 02/28 which showed multiple concerns in the cervical spine to include budged discs with ventral cord contact and severe narrowing. Orthopaedic Surgery consulted and there is consideration of surgical intervention to which the patient is agreeable to. Patient is AANDOX4 from Home with Spouse. Patient reports they're functionally Independent with most ADLs utilizing his DME, but provides assistance, they share IADLs, provides transport at baseline. Has PCP Tacos Dye MD [phone]. Has medical and Rx coverage. Difficulty obtaining or affording medications denied. Reports Cane, BSC, Rollator (had breaks on), shower chair, Lift chair, stair lift chair, murray lift with gait belt as DME use. PT/OT evals ordered and pending ortho spine consult, and brain MRI for possible lumbar puncture. SNF and [facility] lists were provided for patient and spouse to review. No SNF choice provided yet but [facility] is [facility]. Referral sent and they are pending final DC plan to ensure they have adequate staffing. Final DC plan TBD. SNF vs [facility]. Pending Ortho spine, medical clearance, and therapy recs. CM met with patient at bedside this date to review current D/C plan. Plan is still [facility] if appropriate. If SNF is recommended then [facility] SNF is first choice followed by SNF [facility]. CM sent referrals this date-pending. Would nee accepting facility, PT/OT for precert, PASRR, and all forms. Patient will need ambulance cot transport and is agreeable to any potential out of pocket costs associated with transport. CM will continue to follow for d/c planning and needs. SIGNATURE: Tawnya Wolfe RN PATIENT NAME: Tam Cervantes Eclem DATE: March 05, 2025 TIME: 8:35 AM [facility] 03-04-2025 Note HNO ID: [id number] Author: LAKSHMI WASHINGTON DO Service: Hospital Medicine Author Type: Physician Type: Progress Notes Filed: 03/04/2025 14:51 Note Text: PROGRESS NOTE SERVICE DATE: 03/04/2025 SERVICE TIME: 3:29 PM PRIMARY SERVICE: Internal Medicine CHIEF COMPLAINT: Weakness INTERVAL HPI: Patient continued to complain of weakness of the lower extremities. Plan of care discussed with him. He requesting anesthesia for brain MRI. He declined to stay still for 15 minutes. No new complaints or overnight events. BP 124/73 Pulse 76 Temp (Src) 97.6 (Oral) Resp 18 Ht 5' 11 (1.80m) Wt 201 lb 1 oz (91.2kg) SpO2 95% BMI 28.05 kg/(m2). O2 Therapy: Room Air PHYSICAL EXAM: General: alert and oriented x3, resting comfortably Neck: supple, no hepatojugular reflux or jugular venous distention, no carotid bruits Lungs: clear to auscultation bilaterally, no wheezing, rales, or rhonchi Cardiac: regular rate and rhythm, normal S1 and S2, no murmurs, gallops, or rubs Abdomen: soft, nontender, nondistended, bowel sounds present Extremities: no edema, cyanosis, or clubbing Skin: no rashes or breakdown Lymphatic: no cervical or supraclavicular lymphadenopathy Neurologic: cranial nerves II-XII are grossly intact Psychiatry: normal affect, no hallucinations, no suicidal ideation Current Facility-Administered Medications Medication Dose Route Frequency NaCl 0.9% iv flush bag 20 mL INTRAVENOUS PRN aspirin 81 mg chewable tab(s) 81 mg ORAL DAILY pantoprazole DR 40 mg tab(s) (PROTONIX) 40 mg ORAL DAILY polyethylene glycol 3350 17 g packet 17 g ORAL DAILY PRN acetaminophen 500 mg tab(s) (TYLENOL) 500 mg ORAL q 8 H PRN diphenhydrAMINE 25 mg capsule (BENADRYL) 25 mg ORAL AT BEDTIME PRN levothyroxine 25 mcg tab(s) (SYNTHROID) 25 mcg ORAL DAILY (6 AM) heparin 5,000 Units injection 5,000 Units SUBCUTANEOUS q 12 H oxyCODONE IR 5 mg tab(s) (ROXICODONE) 5 mg ORAL q 8 H PRN iv contrast (radiology procedure) INTRAVENOUS DIRECTED PRN DATA: WBC (k/uL) Date Value 03/04/2025 6.52 RBC (m/uL) Date Value 03/04/2025 3.89 (L) Hemoglobin (g/dL) Date Value 03/04/2025 12.5 (L) Hematocrit (%) Date Value 03/04/2025 36.8 (L) MCV (fL) Date Value 03/04/2025 94.6 MCH (pg) Date Value 03/04/2025 32.1 MCHC (g/dL) Date Value 03/04/2025 34.0 RDW-CV (%) Date Value 03/04/2025 13.6 Platelet Count (k/uL) Date Value 03/04/2025 260 MPV (fL) Date Value 03/04/2025 9.9 Glucose (mg/dL) Date Value 03/04/2025 93 BUN (mg/dL) Date Value 03/04/2025 24 Creatinine (mg/dL) Date Value 03/04/2025 0.36 (L) Sodium (mmol/L) Date Value 03/04/2025 137 Potassium (mmol/L) Date Value 03/04/2025 4.2 Chloride (mmol/L) Date Value 03/04/2025 100 CO2 (mmol/L) Date Value 03/04/2025 28 Protein, Total (g/dL) Date Value 03/03/2025 6.2 Albumin (g/dL) Date Value 03/03/2025 2.9 (L) Calcium, Total (mg/dL) Date Value 03/04/2025 9.1 Alkaline Phosphatase (U/L) Date Value 03/03/2025 159 (H) Bilirubin, Total (mg/dL) Date Value 03/03/2025 0.8 AST (U/L) Date Value 03/03/2025 37 (H) ALT (U/L) Date Value 03/03/2025 55 ASSESSMENT AND PLAN: Weakness Multiple falls [facility] and multiple falls MRI of thoracic, cervical and lumber was resulted, result was reviewed, which mostly showed degenerative changes and foramina stenosis. Neurology service is consulted. Plan was for him to work with PT/OT with possible placement on discharge PT/OT evals --will d/c brain MRI Brain wo contrast since there is another neuro ordered for brain MRI w and wo contrast. Patient will need anesthesia to go with the imaging. Neurology service would like to r/o cause of progressive weakness. morning CBC and BMP has been stable for the last 72 hours, no need to repeat. Cervical spine stenosis This was thought to be contributing to patient's falls a the [facility] MRI of the cervical spine with anesthesia done on 02/28, severe foraminal narrowing seen at C4-C5 Spine surgery following Findings are not believed to be the cause of patient's leg weakness Chronic comorbidities Hypertension Hyperlipidemia Hypothyroidism Neuropathy GERD SIGNATURE: Lakshmi Washington DO PATIENT NAME: Tam Cervantes [facility] DATE: March 04, 2025 TIME: 3:29 PM [facility] 03-03-2025 Note HNO ID: [id number] Author: KEYANA US RT(R) Service: Radiology Author Type: Technologist Type: Progress Notes Filed: 03/03/2025 14:45 Note Text: Summary: MRI RADIOLOGY SERVICE PROGRESS NOTE DATE OF SERVICE: March 03, 2025 TIME OF SERVICE: 14:45 EVENT: Need MRI Screening Sheet. ADDITIONAL EVENT DETAILS: N/A SIGNATURE: RT Jarrell(Lito)(MR) PATIENT NAME: Tam Cervantes [facility] DATE: March 03, 2025 TIME: 2:45 PM PAGER/CONTACT #: [facility] 03-03-2025 Note HNO ID: [id number] Author: LAKSHMI WASHINGTON DO Service: Hospital Medicine Author Type: Physician Type: Progress Notes Filed: 03/03/2025 19:49 Note Text: PROGRESS NOTE SERVICE DATE: 03/03/2025 SERVICE TIME: 3:29 PM PRIMARY SERVICE: Internal Medicine CHIEF COMPLAINT: Weakness INTERVAL HPI: Patient continued to complain of weakness of the lower extremities. Plan of care discussed with him. He requesting anesthesia for brain MRI. He declined to stay still for 15 minutes. No new complaints or overnight events. BP 120/68 Pulse 82 Temp (Src) 98 (Oral) Resp 16 Ht 5' 11 (1.80m) Wt 199 lb 15.3 oz (90.7kg) SpO2 94% BMI 27.90 kg/(m2). O2 Therapy: Room Air PHYSICAL EXAM: General: alert and oriented x3, resting comfortably Neck: supple, no hepatojugular reflux or jugular venous distention, no carotid bruits Lungs: clear to auscultation bilaterally, no wheezing, rales, or rhonchi Cardiac: regular rate and rhythm, normal S1 and S2, no murmurs, gallops, or rubs Abdomen: soft, nontender, nondistended, bowel sounds present Extremities: no edema, cyanosis, or clubbing Skin: no rashes or breakdown Lymphatic: no cervical or supraclavicular lymphadenopathy Neurologic: cranial nerves II-XII are grossly intact Psychiatry: normal affect, no hallucinations, no suicidal ideation Current Facility-Administered Medications Medication Dose Route Frequency NaCl 0.9% iv flush bag 20 mL INTRAVENOUS PRN aspirin 81 mg chewable tab(s) 81 mg ORAL DAILY pantoprazole DR 40 mg tab(s) (PROTONIX) 40 mg ORAL DAILY polyethylene glycol 3350 17 g packet 17 g ORAL DAILY PRN acetaminophen 500 mg tab(s) (TYLENOL) 500 mg ORAL q 8 H PRN diphenhydrAMINE 25 mg capsule (BENADRYL) 25 mg ORAL AT BEDTIME PRN levothyroxine 25 mcg tab(s) (SYNTHROID) 25 mcg ORAL DAILY (6 AM) heparin 5,000 Units injection 5,000 Units SUBCUTANEOUS q 12 H oxyCODONE IR 5 mg tab(s) (ROXICODONE) 5 mg ORAL q 8 H PRN iv contrast (radiology procedure) INTRAVENOUS DIRECTED PRN DATA: WBC (k/uL) Date Value 03/03/2025 8.68 RBC (m/uL) Date Value 03/03/2025 4.06 (L) Hemoglobin (g/dL) Date Value 03/03/2025 13.2 Hematocrit (%) Date Value 03/03/2025 39.0 MCV (fL) Date Value 03/03/2025 96.1 MCH (pg) Date Value 03/03/2025 32.5 MCHC (g/dL) Date Value 03/03/2025 33.8 RDW-CV (%) Date Value 03/03/2025 13.6 Platelet Count (k/uL) Date Value 03/03/2025 254 MPV (fL) Date Value 03/03/2025 9.7 Glucose (mg/dL) Date Value 03/03/2025 91 BUN (mg/dL) Date Value 03/03/2025 22 Creatinine (mg/dL) Date Value 03/03/2025 0.41 (L) Sodium (mmol/L) Date Value 03/03/2025 138 Potassium (mmol/L) Date Value 03/03/2025 4.2 Chloride (mmol/L) Date Value 03/03/2025 101 CO2 (mmol/L) Date Value 03/03/2025 29 Protein, Total (g/dL) Date Value 03/03/2025 6.2 Albumin (g/dL) Date Value 03/03/2025 2.9 (L) Calcium, Total (mg/dL) Date Value 03/03/2025 9.2 Alkaline Phosphatase (U/L) Date Value 03/03/2025 159 (H) Bilirubin, Total (mg/dL) Date Value 03/03/2025 0.8 AST (U/L) Date Value 03/03/2025 37 (H) ALT (U/L) Date Value 03/03/2025 55 ASSESSMENT AND PLAN: Weakness Multiple falls Patient was admitted to an [facility] due to increasing weakness and multiple falls MRI of thoracic, cervical and lumber was resulted, result was reviewed, which mostly showed degenerative changes and foramina stenosis. Neurology service is consulted. Plan was for him to work with PT/OT with possible placement on discharge PT/OT evals MRI of the brain is ordered Tomorrow morning labs of CBC and BMP Cervical spine stenosis This was thought to be contributing to patient's falls a the [facility] MRI of the cervical spine with anesthesia done on 02/28, severe foraminal narrowing seen at C4-C5 Spine surgery following Findings are not believed to be the cause of patient's leg weakness Chronic comorbidities Hypertension Hyperlipidemia Hypothyroidism Neuropathy GERD SIGNATURE: Lakshmi Washington DO PATIENT NAME: Tam Walsh DATE: March 03, 2025 TIME: 3:29 PM [facility] 03-03-2025 Note HNO ID: [id number] Author: KRISTOFER BALDWIN MD Service: Orthopaedic Surgery Author Type: Physician Type: Progress Notes Filed: 03/03/2025 10:10 Note Text: Orthopaedic Spine Surgery - Imaging Review Imaging Reviewed new MRI and CT of the thoracic and lumbar spine. Imaging demonstrates multilevel foraminal stenosis, but no significant central stenosis. No cord compression or cord signal abnormality. No evidence of instability. Radiology reports reviewed. Assessment Tam Walsh is a 74 year old male with profound lower extremity weakness without significant stenosis in the cervical, thoracic, or lumbar spine to explain neurologic symptoms. Plan Recommend neurology consult and imaging of the brain, although will leave specific imaging modality choice to other consultants. Orthopaedic spine surgery to follow peripherally. Please call/page with consults. Kristofer Baldwin MD Orthopaedic Spine Surgery [facility] 03-02-2025 Note HNO ID: [id number] Author: RENA LEUNG DO Service: Hospital Medicine Author Type: Physician Type: Progress Notes Filed: 03/02/2025 15:32 Note Text: PROGRESS NOTE SERVICE DATE: 03/02/2025 SERVICE TIME: 3:29 PM PRIMARY SERVICE: Internal Medicine CHIEF COMPLAINT: Weakness INTERVAL HPI: Patient seen and examined, discussed with house staff and RN. No significant overnight issues. BP 152/64 Pulse 78 Temp (Src) 98.4 (Oral) Resp 19 Ht 5' 11 (1.80m) Wt 205 lb 0.4 oz (93.0kg) SpO2 99% BMI 28.61 kg/(m2). O2 Therapy: Room Air PHYSICAL EXAM: General: alert and oriented x3, resting comfortably Neck: supple, no hepatojugular reflux or jugular venous distention, no carotid bruits Lungs: clear to auscultation bilaterally, no wheezing, rales, or rhonchi Cardiac: regular rate and rhythm, normal S1 and S2, no murmurs, gallops, or rubs Abdomen: soft, nontender, nondistended, bowel sounds present Extremities: no edema, cyanosis, or clubbing Skin: no rashes or breakdown Lymphatic: no cervical or supraclavicular lymphadenopathy Neurologic: cranial nerves II-XII are grossly intact Psychiatry: normal affect, no hallucinations, no suicidal ideation Current Facility-Administered Medications Medication Dose Route Frequency NaCl 0.9% iv flush bag 20 mL INTRAVENOUS PRN aspirin 81 mg chewable tab(s) 81 mg ORAL DAILY pantoprazole DR 40 mg tab(s) (PROTONIX) 40 mg ORAL DAILY polyethylene glycol 3350 17 g packet 17 g ORAL DAILY PRN acetaminophen 500 mg tab(s) (TYLENOL) 500 mg ORAL q 8 H PRN diphenhydrAMINE 25 mg capsule (BENADRYL) 25 mg ORAL AT BEDTIME PRN levothyroxine 25 mcg tab(s) (SYNTHROID) 25 mcg ORAL DAILY (6 AM) heparin 5,000 Units injection 5,000 Units SUBCUTANEOUS q 12 H oxyCODONE IR 5 mg tab(s) (ROXICODONE) 5 mg ORAL q 8 H PRN Facility-Administered Medications Ordered in Other Encounters Medication Dose Route Frequency propofol injection (DIPRIVAN) INTRAVENOUS PRN NaCl 0.9% iv infusion INTRAVENOUS X (ONE-STEP ONLY) CONTINUOUS PRN DATA: WBC (k/uL) Date Value 02/27/2025 9.85 RBC (m/uL) Date Value 02/27/2025 4.12 (L) Hemoglobin (g/dL) Date Value 02/27/2025 13.4 Hematocrit (%) Date Value 02/27/2025 39.3 MCV (fL) Date Value 02/27/2025 95.4 MCH (pg) Date Value 02/27/2025 32.5 MCHC (g/dL) Date Value 02/27/2025 34.1 RDW-CV (%) Date Value 02/27/2025 13.4 Platelet Count (k/uL) Date Value 02/27/2025 242 MPV (fL) Date Value 02/27/2025 9.7 Glucose (mg/dL) Date Value 02/27/2025 90 BUN (mg/dL) Date Value 02/27/2025 14 Creatinine (mg/dL) Date Value 02/27/2025 0.34 (L) Sodium (mmol/L) Date Value 02/27/2025 136 Potassium (mmol/L) Date Value 02/26/2025 4.0 Chloride (mmol/L) Date Value 02/27/2025 100 CO2 (mmol/L) Date Value 02/27/2025 25 Protein, Total (g/dL) Date Value 02/27/2025 6.1 Albumin (g/dL) Date Value 02/27/2025 3.0 (L) Calcium, Total (mg/dL) Date Value 02/27/2025 8.9 Alkaline Phosphatase (U/L) Date Value 02/27/2025 147 (H) Bilirubin, Total (mg/dL) Date Value 02/27/2025 1.3 (H) AST (U/L) Date Value 02/26/2025 55 (H) ALT (U/L) Date Value 02/27/2025 48 ASSESSMENT AND PLAN: Weakness Multiple falls Patient was admitted to an [facility] due to increasing weakness and multiple falls Plan was for him to work with PT/OT with possible placement on discharge PT/OT evals remain pending here as we await completion of MRIs Appreciate case management assistance with discharge planning Cervical spine stenosis This was thought to be contributing to patient's falls a the [facility] MRI was recommended but was unable to be done as the patient wished to have it done with anesthesia MRI of the cervical spine with anesthesia done on 02/28, severe foraminal narrowing seen at C4-C5 Spine surgery following Findings are not believed to be the cause of patient's leg weakness Follow-up MRIs of the thoracic and lumbar spine ordered for today Chronic comorbidities Hypertension Hyperlipidemia Hypothyroidism Neuropathy GERD SIGNATURE: Rena Leung DO PATIENT NAME: Tam Cervantes Eclem DATE: March 02, 2025 TIME: 3:29 PM [facility] 03-02-2025 Note HNO ID: [id number] Author: TIM ROWAN AA Service: ? 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 Staffing Anesthesiologist: Sha Redmond MD CAA: Tim Rowan AA Performed by: GRISELDA Indications and Patient Condition Indications for airway management: anesthesia and airway protection Preoxygenated: yes anesthesia circuit Cricoid Pressure: No Manual In-Line Stabilization: No Difficult Mask: No Final Airway Details Final airway type: supraglottic airway Number of attempts at approach: 1 Final Supraglottic Airway: i-gel Size 4 Seal Adequate: yes Airway not difficult SIGNATURE: RUFINO Munson PATIENT NAME: Tam Walsh DATE: March 02, 2025 TIME: 3:01 PM CSN: [id number] [facility] 03-02-2025 Note HNO ID: [id number] Author: CONCHIS MOORE RT(R) Service: ? Author Type: Technologist Type: Progress Notes Filed: 03/02/2025 17:33 Note Text: Summary: MRI Radiology Service Progress Note PATIENT NAME: Tam Walsh DATE OF SERVICE: March 02, 2025 TIME: 2:59 PM PATIENT IDENTITY VERIFICATION COMPLETED USING TWO (2) IDENTIFIERS: Name and Date of confirmed by patient verbally and Name and Date of confirmed by identification band. FALL SCREENING: Has the patient had 2 falls in the last year or 1 fall with injury or currently using an Ambulatory Assistive Device (Walker, Cane, Wheelchair, Crutches, etc.)? Inpatient: Screened on floor PATIENT GENDER DATA: Assigned male at PATIENT RELEVANT IMPLANT DATA REVIEWED: Not Applicable PATIENT PRESENTS WITH AN IMPLANTABLE OR ATTACHED MARKET INTELLIGENCE CONSULTANT: No RADIOLOGY DEPARTMENT: MR; Exam(s) Completed: Spine: Thoracic spine and Lumbar spine. Aromatherapy Administered: No PERIPHERAL IV DATA: Inpatient: see LDA documentation SIGNED BY: RT Oskar(R) March 02, 2025 2:59 PM [facility] 03-02-2025 Note HNO ID: [id number] Author: TAWNYA WOLFE RN Service: Care Management Author Type: Registered Nurse Type: Care Mgt Progress Note Filed: 03/02/2025 07:24 Note Text: CARE MANAGEMENT PROGRESS NOTE SERVICE DATE: 03/02/2025 SERVICE TIME: 7:19 AM LOS: 4 days Chart reviewed. Patient presented to [facility] ED with increasing weakness. Transferred from [facility] for MRI w/ Anesthesia needs. MRI with Anesthesia completed 02/28 which showed multiple concerns in the cervical spine to include budged discs with ventral cord contact and severe narrowing. Orthopaedic Surgery consulted and there is consideration of surgical intervention to which the patient is agreeable to. Patient is AANDOX4 from Home with Spouse. Patient reports they're functionally Independent with most ADLs utilizing his DME, but provides assistance, they share IADLs, provides transport at baseline. Has PCP Tacos Dye MD [phone]. Has medical and Rx coverage. Difficulty obtaining or affording medications denied. Reports Cane, BSC, Rollator (had breaks on), shower chair, Lift chair, stair lift chair, murray lift with gait belt as DME use. PT/OT priti ordered and pending clearance from Ortho Spine. SNF and [facility] lists were provided for patient and spouse to review. No SNF choice provided yet but [facility] is [facility]. Referral sent and they are pending final DC plan to ensure they have adequate staffing. Final DC plan TBD. SNF vs [facility]. Pending Ortho spine, medical clearance, and therapy recs. CM will continue to follow for d/c planning and needs. SIGNATURE: Tawnya Wolfe RN PATIENT NAME: Tam Cervantes Eclem DATE: March 02, 2025 TIME: 7:19 AM [facility] 03-01-2025 Note HNO ID: [id number] Author: DUC ROSAS MRI Tech Service: Radiology Author Type: Technologist Type: Progress Notes Filed: 03/01/2025 16:31 Note Text: Summary: MRI RADIOLOGY SERVICE PROGRESS NOTE DATE OF SERVICE: March 01, 2025 TIME OF SERVICE: 1630 EVENT: Discussed case w/ OR and patient's nurse. Patient ate so MRI w/ anesthesia will be done tomorrow. Attending notified. ADDITIONAL EVENT DETAILS: N/A SIGNATURE: CHITRA Parikh PATIENT NAME: Tam Walsh DATE: March 01, 2025 TIME: 4:30 PM PAGER/CONTACT #: [facility] 03-01-2025 Note HNO ID: [id number] Author: CARLTON DHILLON DO Service: Hospital Medicine Author Type: Physician Type: Progress Notes Filed: 03/01/2025 11:19 Note Text: DEPARTMENT OF HOSPITAL MEDICINE PROGRESS NOTE SERVICE DATE: 03/01/2025 SERVICE TIME: 11:16 AM Hospital Medicine/Primary Attending: Carlton Dhillon DO PRIMARY CARE PHYSICIAN: Tacos yDe MD Readmission: Highest Readmission Risk Score: 10 Subjective INTERVAL HPI: Patient is a 74-year-old male who initially presented to the [facility] emergency department on February 23, 2025, for further evaluation of increasing weakness. He had also had multiple recent falls and admitted to utilizing his lift chair at home more frequently. He was admitted, and per my discussion with the floor provider there the plan was for the patient to work with therapy with plans for potential placement on discharge. While admitted there were concerns that the patient's known cervical spine stenosis may have been contributing to some of his symptoms. MRI was ordered, but the patient refused to have it done because he requested to have it done with anesthesia. Because of that the decision was made to transfer the patient. He personally requested to come here to [facility] instead of [facility]. MRI has been completed. It shows Multilevel cervical spine degenerative changes as detailed, without high-grade canal narrowing. Varying degrees of foraminal narrowing as detailed, noting severe foraminal narrowing on the right at C4-5. Orthopedic spine has been consulted. Current Facility-Administered Medications Medication Dose Route Frequency NaCl 0.9% iv flush bag 20 mL INTRAVENOUS PRN aspirin 81 mg chewable tab(s) 81 mg ORAL DAILY pantoprazole DR 40 mg tab(s) (PROTONIX) 40 mg ORAL DAILY polyethylene glycol 3350 17 g packet 17 g ORAL DAILY PRN acetaminophen 500 mg tab(s) (TYLENOL) 500 mg ORAL q 8 H PRN diphenhydrAMINE 25 mg capsule (BENADRYL) 25 mg ORAL AT BEDTIME PRN levothyroxine 25 mcg tab(s) (SYNTHROID) 25 mcg ORAL DAILY (6 AM) heparin 5,000 Units injection 5,000 Units SUBCUTANEOUS q 12 H oxyCODONE IR 5 mg tab(s) (ROXICODONE) 5 mg ORAL q 8 H PRN Objective PHYSICAL EXAM: BP 135/71 Pulse 77 Temp (Src) 97.5 (Oral) Resp 18 Ht 5' 11 (1.80m) Wt 205 lb 11 oz (93.3kg) SpO2 97% BMI 28.70 kg/(m2). O2 Therapy: Room Air Physical Exam Performed GENERAL: Alert, no distress, cooperative LUNGS: Lungs clear to auscultation, Good diaphragmatic excursion CARDIAC: Normal S1 and S2; no rubs, murmurs, or gallops ABDOMEN: Abdomen soft, non-tender, BS normal, No masses or organomegaly EXTREMITIES: Extremities normal, no deformities, edema, clubbing or skin discoloration. Good capillary refill., No ulcers NEURO: Grossly normal cognition, motor function, and cranial nerves III-XII Lines, Drains, and Airways Line Duration Peripheral 02/28/25 [facility] Short Right Arm 20 Gauge 1 day Peripheral 02/28/25 1225 Right 20 Gauge <1 day DATA: Diagnostic tests reviewed for today's visit: Most recent labs Most recent imaging Assessment/Plan Problem List Weakness (POA: Yes) HOSPITAL COURSE: Tam Walsh is a 74 year old male Recurrent falls - Needs placement. PT/OT Multilevel cervical spine degenerative changes as detailed, without high-grade canal narrowing with severe foraminal narrowing on the right at C4-5 - Orthopedic spine has been consulted Hypothyroidism - Continue synthroid HLD - Continue pravastatin Essential HTN - Continue triamterene-HCTZ GERD - Continue PPI DVT prophylaxis - Heparin Code status - Full code Consultants - PT/OT, Orthopedic spine DC planning - PT/OT, pending placement High risk medications reviewed for toxicity? Yes Personally discussed plan with consultants? Yes Reviewed imaging/tests? Yes Diet: Orders Placed This Encounter DIET REGULAR Standing Status: Standing Number of Occurrences: 1 02/26/25 1515 vte current anticoag therapy (mo,oh) Code Status: Code Status: Full Code Disclaimer This dictation was created using voice recognition software. Phonetic and/or minor grammatical errors may exist. SIGNATURE: Carlton Dhillon DO PATIENT NAME: Tam Walsh DATE: March 01, 2025 TIME: 11:16 AM [facility] 02-28-2025 Note HNO ID: [id number] Author: SHITAL CASTRO APRN.CRNA Service: Anesthesiology Author Type: Nurse Tool Specialist Type: Anesthesia Procedure Notes Filed: 02/28/2025 13:23 Note Text: ANESTHESIOLOGY PROCEDURE NOTE PIV General Information Procedure Start Time/Medication Administration: 02/28/2025 12:25 PM Procedure End Time: 02/28/2025 12:30 PM Patient Location: OR Staffing Anesthesiologist: Tam Ragsdale DO Performed by: anesthesiologist Preparation Sterility Preparation: hand hygiene performed prior to procedure, surgical cap used, mask used, skin prep agent completely dried prior to procedure Sterility Technique Not Completely Performed Due to Extreme Emergency: No Site Prep: alcohol Procedure Details Indication: need for IV access Needle Size/Type: 20 gauge angiocath Orientation: Right Location: Wrist Imaging Guidance Used: No SIGNATURE: Shital Castro APRN.TAG STRINGER PATIENT NAME: Tam Walsh DATE: February 28, 2025 TIME: 1:23 PM CSN: [id number] [facility] 02-28-2025 Note HNO ID: [id number] Author: ROSENDA BERUMEN RT(R) Service: Radiology Author Type: Technologist Type: Progress Notes Filed: 02/28/2025 12:47 Note Text: Summary: MRI Radiology Service Progress Note PATIENT NAME: Tam Walsh DATE OF SERVICE: February 28, 2025 TIME: 12:46 PM PATIENT IDENTITY VERIFICATION COMPLETED USING TWO (2) IDENTIFIERS: Name and Date of confirmed by patient verbally and Name and Date of confirmed by identification band. FALL SCREENING: Has the patient had 2 falls in the last year or 1 fall with injury or currently using an Ambulatory Assistive Device (Walker, Cane, Wheelchair, Crutches, etc.)? Inpatient: Screened on floor PATIENT GENDER DATA: Assigned male at PATIENT RELEVANT IMPLANT DATA REVIEWED: Yes PATIENT PRESENTS WITH AN IMPLANTABLE OR ATTACHED MARKET INTELLIGENCE CONSULTANT: No RADIOLOGY DEPARTMENT: MR; Exam(s) Completed: Spine: Cervical spine. Aromatherapy Administered: No PERIPHERAL IV DATA: Not applicable SIGNED BY: RT [place](R)(MR) February 28, 2025 12:46 PM [facility] 02-28-2025 Note HNO ID: [id number] Author: SHITAL CASTRO APRN.CRNA Service: Anesthesiology Author Type: Nurse Tool Specialist Type: Anesthesia Procedure Notes Filed: 02/28/2025 13:23 Note Text: ANESTHESIOLOGY PROCEDURE NOTE Airway General Information Procedure Start Time/Medication Administration: 02/28/2025 12:30 PM Procedure End Time: 02/28/2025 12:34 PM Patient location during procedure: OR Timeout Performed Pre-procedure: timeout performed Consent Obtained: Yes 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, 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 Staffing Anesthesiologist: Tam Ragsdale DO TAG STRINGER: Shital Castro APRN.TAG STRINGER Performed by: MARYLOU Indications and Patient Condition Indications for airway management: anesthesia Preoxygenated: yes anesthesia circuit Patient position: sniffing Method: asleep Cricoid Pressure: No Manual In-Line Stabilization: No Difficult Mask: No Final Airway Details Final airway type: supraglottic airway Number of attempts at approach: 1 Final Supraglottic Airway: i-gel Size 5 Seal Adequate: yes Failed airway: no Unrecognized esophageal intubation: no Airway not difficult SIGNATURE: Shital Castro APRN.TAG STRINGER PATIENT NAME: Tam Cervantes Eclem DATE: February 28, 2025 TIME: 12:34 PM CSN: [id number] [facility] 02-28-2025 Note HNO ID: [id number] Author: CARLTON DHILLON DO Service: Hospital Medicine Author Type: Physician Type: Progress Notes Filed: 02/28/2025 15:15 Note Text: DEPARTMENT OF HOSPITAL MEDICINE PROGRESS NOTE SERVICE DATE: 02/28/2025 SERVICE TIME: 9:54 AM Hospital Medicine/Primary Attending: Carlton Dhillon DO PRIMARY CARE PHYSICIAN: Tacos Dye MD Readmission: Highest Readmission Risk Score: 10 Subjective INTERVAL HPI: Patient is a 74-year-old male who initially presented to the [facility] emergency department on February 23, 2025, for further evaluation of increasing weakness. He had also had multiple recent falls and admitted to utilizing his lift chair at home more frequently. He was admitted, and per my discussion with the floor provider there the plan was for the patient to work with therapy with plans for potential placement on discharge. While admitted there were concerns that the patient's known cervical spine stenosis may have been contributing to some of his symptoms. MRI was ordered, but the patient refused to have it done because he requested to have it done with anesthesia. Because of that the decision was made to transfer the patient. He personally requested to come here to [facility] instead of [facility]. Current Facility-Administered Medications Medication Dose Route Frequency NaCl 0.9% iv flush bag 20 mL INTRAVENOUS PRN aspirin 81 mg chewable tab(s) 81 mg ORAL DAILY pantoprazole DR 40 mg tab(s) (PROTONIX) 40 mg ORAL DAILY polyethylene glycol 3350 17 g packet 17 g ORAL DAILY PRN acetaminophen 500 mg tab(s) (TYLENOL) 500 mg ORAL q 8 H PRN diphenhydrAMINE 25 mg capsule (BENADRYL) 25 mg ORAL AT BEDTIME PRN levothyroxine 25 mcg tab(s) (SYNTHROID) 25 mcg ORAL DAILY (6 AM) heparin 5,000 Units injection 5,000 Units SUBCUTANEOUS q 12 H oxyCODONE IR 5 mg tab(s) (ROXICODONE) 5 mg ORAL q 8 H PRN Objective PHYSICAL EXAM: BP 96/67 Pulse 84 Temp (Src) 98.1 (Oral) Resp 18 Ht 5' 11 (1.80m) Wt 205 lb 11 oz (93.3kg) SpO2 96% BMI 28.70 kg/(m2). O2 Therapy: Room Air Physical Exam Performed GENERAL: Alert, no distress, cooperative LUNGS: Lungs clear to auscultation, Good diaphragmatic excursion CARDIAC: Normal S1 and S2; no rubs, murmurs, or gallops ABDOMEN: Abdomen soft, non-tender, BS normal, No masses or organomegaly EXTREMITIES: Extremities normal, no deformities, edema, clubbing or skin discoloration. Good capillary refill., No ulcers NEURO: Grossly normal cognition, motor function, and cranial nerves III-XII Lines, Drains, and Airways Line Duration Peripheral 02/23/25 1600 External Facility Left Antecubital 18 Gauge 4 days DATA: Diagnostic tests reviewed for today's visit: Most recent labs Most recent imaging Assessment/Plan Problem List Weakness (POA: Yes) HOSPITAL COURSE: Tma Walsh is a 74 year old male Recurrent falls - Needs placement. PT/OT Cervical spine stenosis - Needs MRI C spine with anesthesia. Anesthesia consult placed. Currently NPO. Hypothyroidism - Continue synthroid HLD - Continue pravastatin Essential HTN - Continue triamterene-HCTZ GERD - Continue PPI DVT prophylaxis - Heparin Code status - Full code Consultants - None DC planning - PT/OT, pending placement High risk medications reviewed for toxicity? Yes Reviewed imaging/tests? Yes Diet: Orders Placed This Encounter DIET NPO Standing Status: Standing Number of Occurrences: 1 02/26/25 1515 vte current anticoag therapy (fl,oh) Code Status: Code Status: Full Code Plan of care discussed with Patient, Care Management, and RN Disclaimer This dictation was created using voice recognition software. Phonetic and/or minor grammatical errors may exist. SIGNATURE: Carlton Dhillon DO PATIENT NAME: Tam Cervantes Eclem DATE: February 28, 2025 TIME: 9:54 AM [facility] 02-28-2025 Note HNO ID: [id number] Author: TAWNYA WOLFE RN Service: Care Management Author Type: Registered Nurse Type: Care Mgt Progress Note Filed: 02/28/2025 09:23 Note Text: CARE MANAGEMENT PROGRESS NOTE SERVICE DATE: 02/28/2025 SERVICE TIME: 9:20 AM LOS: 2 days Chart reviewed. Patient presented to [facility] ED with increasing weakness. Transferred from [facility] for MRI w/ Anesthesia needs. Pending MRI with Anesthesia this date. Patient is AANDOX4 from Home with Spouse. Patient reports they're functionally Independent with most ADLs utilizing his DME, but provides assistance, they share IADLs, provides transport at baseline. Has PCP Tacos Dye MD [phone]. Has medical and Rx coverage. Difficulty obtaining or affording medications denied. Reports Cane, BSC, Rollator (had breaks on), shower chair, Lift chair, stair lift chair, murray lift with gait belt as DME use. PT/OT evals ordered and pending MRI results. Possible Ortho/Spine consult needed, Patient previously had lumbar surgery in 2019, known history of Spinal Stenosis. FOC list provided for SNF, patient to review with his . FOC for C is [facility], referral sent, needs acceptance and orders. Plan: MRI w/ Anesthesia 02/28, PT/OT evals pending MRI results, SNF (need FOC and Auth) vs C ([facility], need orders). Transport TBD, has no DME needs. CM will continue to follow for d/c planning and needs. SIGNATURE: Tawnya Wolfe RN PATIENT NAME: Tam Cervantes Eclem DATE: February 28, 2025 TIME: 9:20 AM [facility] 02-27-2025 Note HNO ID: [id number] Author: SHITAL AZEVEDO RN Service: Care Management Author Type: Registered Nurse Type: Care Mgt Initial Assessment Filed: 02/27/2025 12:40 Note Text: CARE MANAGEMENT: ASSESSMENT AND DISCHARGE PLAN SERVICE DATE: February 27, 2025 SERVICE TIME: 12:29 PM PCP: Tobias Pickard MD Primary Contact: Extended Emergency Contact Information Primary Emergency Contact: Mago Walsh Address: [address] [place] [address] Mobile Relation: Spouse Admission Status: Inpatient Insurance Provider: [employer] PPO Discharge Planning requested by: Per Department Practice Potential Transition Plans Home, Home Care, Home OT/PT, Correction Facility/Intermediate Care Facility, To Be Determined Advance Directives Current Advance Directive: None House Superintendent Attempted to Assist with AD Completion: Yes Action: Education Provided, Patient Unwilling Current Living Arrangements and Support Lives with: Spouse/significant other Type of Residence: Private Residence (House) Does the patient have to climb stairs at home?: No (ramp entry into [facility]) Support: Spouse/significant other How do you manage to accomplish the following: Independent: Ambulation, Medication Management Needs Assistance: Bathe/Shower, Dress, Meals/Meal Prep, Going to the bathroom Dependent: Transportation to appointments/community Current Services/Equipment Current Post-Acute Service(s): DME Current DME Type: Bedside commode, Cane, Electric scooter, Elevated toilet seat, Grab bars, Murray Lift, Rollator Scooter, Shower seat, Standard walker, Walker, Wheelchair-manual, Other: See Comment (GAIT BELT) Discharge Planning Patient Goal(s): Be able to go home, General wellness [place] of Choice Explained: [place] of [place] Given: Yes Level of Care Discussed: Correction Facility Are you interested in bedside delivery of your medications? No Discharge Planning Participant(s): Patient Patient/Family Comments: Caregiver Assessment: Caregiver is ready, willing and able to meet the patient's needs as recommended by the inter-professional team: Yes Name of Caregiver: Mago (Spouse) [phone] (Home Phone) Transport at Discharge: Transportation Arrangements: To Be Determined Needs Prior to Discharge: Needs Prior to Discharge: Procedure, OT/PT Evaluation, Accepting Facility, Insurance Authorization, To Be Determined, Home Care Order, Facility or Agency Choices, Discharge Transportation Procedure Needed: MRI WITH ANESTHESIA Post-Acute Discharge Plan: Intimate Partner Violence We have begun to talk to patients about safe and healthy relationships because it can have a large impact on your health. Do you feel safe around your partner or ex-partner?: Yes Food Insecurity Within the past 12 months, you worried that your food would run out before you got the money to buy more.: Never true Within the past 12 months, the food you bought just didn't last and you didn't have money to get more.: Never true Transportation Needs In the past 12 months, has lack of transportation kept you from medical appointments or from getting medications?: No In the past 12 months, has lack of transportation kept you from meetings, work, or from getting things needed for daily living?: No Housing Stability In the last 12 months, was there a time when you were not able to pay the mortgage or rent on time?: No At any time in the past 12 months, were you homeless or living in a fdc (including now)?: No Utilities In the past 12 months has the [employer], oil, or [employer] threatened to shut off services in your home?: No Social Information Financial Resources: Retired Chart reviewed. Patient is AANDOX4 from Home with Spouse Transferred from [facility] for MRI w/ Anesthesia needs. Patient reports they're functionally Independent with most ADLs utilizing his DME, but provides assistance, they share IADLs, provides transport at baseline. Reports Cane, BSC, Rollator (had breaks on), shower chair, Lift chair, stair lift chair, murray lift with gait belt as DME use. Current with PCP on chart and has Medical Coverage. Patient reports no concerns for safety or ability to provided basic necessities. Patient has no Advance Directives on file, per [place] law, LNOK is Mago (Spouse) [phone] (Home Phone) . Patient was educated on who their LNOK would be should the need arise and declined to fill out [facility] paperwork at this time. Patient was transferred to [facility] from [facility] for the need of a MRI with Anesthesia could not be provided at their facility. Patient originally was at [facility] since February 23 for complaints of increasing weakness. Has had multiple falls at home. Plan for MRI with Anesthesia scheduled 02/28 - 1200 PT/OT evals ordered and pending MRI results. Possible Ortho/Spine (more content not included)... [facility] 02-27-2025 Note HNO ID: [id number] Author: ROSENDA BERUMEN RT(R) Service: Radiology Author Type: Technologist Type: Progress Notes Filed: 02/27/2025 12:20 Note Text: Summary: MRI RADIOLOGY SERVICE PROGRESS NOTE DATE OF SERVICE: February 27, 2025 TIME OF SERVICE: 1220 EVENT: MRI WITH SEDATION SCHEDULED FOR 02/28/25 AT 1200. PATIENT MUST BE NPO ADDITIONAL EVENT DETAILS: N/A SIGNATURE: RT [place](R)(MR) PATIENT NAME: Tam Walsh DATE: February 27, 2025 TIME: 12:20 PM PAGER/CONTACT #: [facility] 02-27-2025 Note HNO ID: [id number] Author: CARLTON DHILLON DO Service: Hospital Medicine Author Type: Physician Type: Progress Notes Filed: 02/27/2025 14:34 Note Text: DEPARTMENT OF HOSPITAL MEDICINE PROGRESS NOTE SERVICE DATE: 02/27/2025 SERVICE TIME: 11:01 AM Hospital Medicine/Primary Attending: Carlton Dhillon DO PRIMARY CARE PHYSICIAN: Tobias Pickard MD Readmission: Highest Readmission Risk Score: 10 Subjective INTERVAL HPI: Patient is a 74-year-old male who initially presented to the [facility] emergency department on February 23, 2025, for further evaluation of increasing weakness. He had also had multiple recent falls and admitted to utilizing his lift chair at home more frequently. He was admitted, and per my discussion with the floor provider there the plan was for the patient to work with therapy with plans for potential placement on discharge. While admitted there were concerns that the patient's known cervical spine stenosis may have been contributing to some of his symptoms. MRI was ordered, but the patient refused to have it done because he requested to have it done with anesthesia. Because of that the decision was made to transfer the patient. He personally requested to come here to [facility] instead of [facility]. Current Facility-Administered Medications Medication Dose Route Frequency NaCl 0.9% iv flush bag 20 mL INTRAVENOUS PRN aspirin 81 mg chewable tab(s) 81 mg ORAL DAILY pantoprazole DR 40 mg tab(s) (PROTONIX) 40 mg ORAL DAILY polyethylene glycol 3350 17 g packet 17 g ORAL DAILY PRN acetaminophen 500 mg tab(s) (TYLENOL) 500 mg ORAL q 8 H PRN diphenhydrAMINE 25 mg capsule (BENADRYL) 25 mg ORAL AT BEDTIME PRN levothyroxine 25 mcg tab(s) (SYNTHROID) 25 mcg ORAL DAILY (6 AM) heparin 5,000 Units injection 5,000 Units SUBCUTANEOUS q 12 H oxyCODONE IR 5 mg tab(s) (ROXICODONE) 5 mg ORAL q 8 H PRN Objective PHYSICAL EXAM: BP 101/63 Pulse 94 Temp (Src) 98.1 (Oral) Resp 16 Ht 5' 11 (1.80m) Wt 205 lb (93.0kg) SpO2 95% BMI 28.60 kg/(m2). O2 Therapy: Room Air Physical Exam Performed GENERAL: Alert, no distress, cooperative LUNGS: Lungs clear to auscultation, Good diaphragmatic excursion CARDIAC: Normal S1 and S2; no rubs, murmurs, or gallops ABDOMEN: Abdomen soft, non-tender, BS normal, No masses or organomegaly EXTREMITIES: Extremities normal, no deformities, edema, clubbing or skin discoloration. Good capillary refill., No ulcers NEURO: Grossly normal cognition, motor function, and cranial nerves III-XII Lines, Drains, and Airways None DATA: Diagnostic tests reviewed for today's visit: Most recent labs Most recent imaging Most recent EKG Assessment/Plan Problem List Weakness (POA: Yes) HOSPITAL COURSE: Tam H Eclem is a 74 year old male Recurrent falls - Needs placement. PT/OT Cervical spine stenosis - Needs MRI C spine with anesthesia. Anesthesia consult placed. Hypothyroidism - Continue synthroid HLD - Continue pravastatin Essential HTN - Continue triamterene-HCTZ GERD - Continue PPI DVT prophylaxis - Heparin Code status - Full code Consultants - None DC planning - PT/OT, pending placement High risk medications reviewed for toxicity? Yes Reviewed imaging/tests? Yes Diet: Orders Placed This Encounter DIET REGULAR Standing Status: Standing Number of Occurrences: 1 02/26/25 1515 vte current anticoag therapy (mo,mo) Code Status: Code Status: Full Code Plan of care discussed with Patient, Care Management, and RN Disclaimer This dictation was created using voice recognition software. Phonetic and/or minor grammatical errors may exist. SIGNATURE: Carlton Dhillon DO PATIENT NAME: Tam Walsh DATE: February 27, 2025 TIME: 11:01 AM [facility] 02-27-2025 Note HNO ID: [id number] Author: ROSENDA BERUMEN RT(R) Service: Radiology Author Type: Technologist Type: Progress Notes Filed: 02/27/2025 10:55 Note Text: Summary: MRI RADIOLOGY SERVICE PROGRESS NOTE DATE OF SERVICE: February 27, 2025 TIME OF SERVICE: 1054 EVENT: NEED MRI SAFETY SCREENING FORM ADDITIONAL EVENT DETAILS: N/A SIGNATURE: GRACIELA Golden)(MR) PATIENT NAME: Tam Walsh DATE: February 27, 2025 TIME: 10:54 AM PAGER/CONTACT #: [facility] 02-26-2025 Note Discharge Instructions Thank you for allowing [facility] to assist you with your healthcare needs. The following is important discharge information regarding your hospital visit. Your Care Team TACOS DYE MD Your Diagnosis Cervical spondylosis Dysphagia Falls Generalized weakness HTN (hypertension) Hypothyroidism Knee joint hypermobility Lumbar spondylosis with myelopathy Lumbar stenosis Scrotal pain Spinal stenosis Weakness What to do next The Following Activity and Diet Have Been Ordered for You No qualifying data available. No qualifying data available. The Following Equipment Has Been Ordered for You No qualifying data available. The Following Treatments Have Been Ordered for You Discharge Labs No qualifying data available. Discharge Radiology No qualifying data available. Other Therapies No qualifying data available. Post Acute Orders No qualifying data available. Someone Will Contact You Regarding These Home Health Referrals No home referrals have been ordered for you. No one will call you. Allergies NKA Medications Please ask your primary doctor or pharmacist before taking any other medication not listed, including over the counter drugs, herbal medications, vitamins and or supplements as they may interact with your home medications. What How Much When Instructions Last Dose Unchanged levothyroxine (levothyroxine 25 mcg (0.025 mg) oral tablet) 1 tab(s) by mouth Once a day Duration: 90 Days 02/26 @ 6am Unchanged multivitamin (Multiple Vitamins oral tablet) 1 tab(s) by mouth Every day 02/26 @ 12 pm Unchanged multivitamin (Super B Complex oral tablet) 1 tab(s) by mouth Once a day Not given Please take this list to your next doctor s visit. Bring all medications you take, including over the counter medications, herbals and other supplements with you to your doctor s visit. Patients and families are reminded to discard old lists and to update any records with all medication providers or retail pharmacies. Additional Information VACCINATE! IT SAVES LIVES! Members of the community who have not yet received the COVID-19 vaccine and would like to receive it can visit one of [place] vaccine clinics. There are many vaccine clinic locations within the [facility]. For locations and available times, please visit https://gettheshot.coronavirus.[place].gov/. It is important to note that some COVID mobile vaccine clinics are held outdoors and may be canceled in rainy or stormy conditions. To learn more about pediatric vaccinations (ages 5-11), we invite you to visit the [facility] webpage. [email or web address] To learn more about the COVID-19 vaccine, we invite you to visit the CDC website for a list of frequently asked questions.https://www.cdc.gov/cor onavirus/2019-ncov/vaccines/faq.h tml [facility] Patient Portal Access Instructions: Stay connected with your healthcare team and access your personal medical information anytime with the [facility] Patient Portal. Please follow the directions below to create your [facility] account: 1.Access the email account you provided upon registration to the hospital/physician office.2.Look for an invitation email from [facility].3.Open the email and access the invitation link: Accept Invitation to [facility].4.Fill in the required burns to create your account. To access your account, visit [email or web address]. Click the blue button labeled Access Patient Portal and then log in with the username and password that you created in the steps above. You will be able to view your test results, lab results, a summary of your visits, upcoming appointments and more. There is also a convenient messaging option where you can send secure messages to your provider. In addition, you will have the ability to download any documents or summaries to your computer and/or send the information securely to a physician. Remember that your healthcare information is confidential, so carefully consider who you will allow to register on the [facility] Patient Portal for access to your information. You can also access the [facility] Patient Portal on the [facility] jonah. Simply click on Patient Portal and then log into your account. If you would like to receive a full copy of your medical records, please contact the [facility] Medical Records Department by calling [phone], Wednesday through Wednesday between 8 a.m. and 4:30 p.m. HOW TO SAFELY DISPOSE OF PRESCRIPTION MEDICATIONS Please use one of the following methods to safely dispose of your unused medications. 1.Use a drug disposal kit: the drug disposal pouch allows you to safely discard your old and unused drugs. Ask your nurse to give you one when you are discharged.2.Visit a local take-back location: Many local pharmacies and police departments have programs that collect old and unwanted prescription drugs. Call your local pharmacy or go to http://Innoviti[employer]/1R8Ut4b to find one close to you.3.Make use of household items: Use cat litter or old coffee grounds to dispose medications if other options are not available. Mix your drugs with these household products, seal them in an airtight container and throw it into the garbage. Call [facility]: [phone] to be sure your drugs can be disposed of in this way. Some medicines may require a different approach.4.Never flush your medications down the toilet. IF YOU HAVE BEEN PRESCRIBED AN OPIOID FOR PAIN If you have been prescribed an opioid (such as hydrocodone, oxycodone or morphine), it is critical to understand the possible side effects and risks of opioid pain medications. Even when taken as directed, opioids can have several side effects including: Tolerance, meaning you might need to take more of a medication for the same pain relief. Nausea, vomiting and/or constipation. Sleepiness, dizziness, dry mouth, confusion, depression or itching. Physical dependence, meaning you have withdrawal symptoms when a medication is stopped, can develop within a few days. KNOW YOUR RESPONSIBILITIES It is important to know exactly how much and how often to take the opioid pain medications you are prescribed. Never take opioids in higher amounts or more often than prescribed. Do not combine opioids with alcohol or other drugs that cause drowsiness, such as benzodiazepines, also known as benzos, including diazepam and alprazolam, muscle relaxants or sleep aids. Never sell or share prescription opioids. This is illegal. Store opioids in a secure place and out of reach of others (including children, family, friends and visitors). The last page of this document has been signed and retained as a CHART COPY. Signatures Patient Education Materials Medication Leaflets My discharge plan and instructions have been reviewed and explained to me and INICO MARK H understand my current condition and have read and understand these discharge instructions. I have received a written copy of the plan/instructions. If I have questions, I am aware that I should contact my doctor. 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 Mild straightening of the cervical spine. Severe cervical spondylosis most pronounced from C4 through C7 with disc space narrowing, facet and uncovertebral joint arthropathy. There is no significant spondylolisthesis. Vertebral body heights are maintained. Prevertebral soft tissues are within normal limits. Calcifications in the bilateral paracervical soft tissues which may be related to underlying vascular/carotid calcifications. Odontoid view is suboptimal. IMPRESSION: Severe cervical spondylosis most pronounced from C4 through C7. Additional findings as above. Interpreted by: Ginna De La Cruz Preliminary Report By: Ginna De La Cruz Electronically signed By Ginna De La Cruz Dictated Date: 02/26/2025 11:21:43 AM Prelim Date: 02/26/2025 11:23:35 AM Sign Date: 02/26/2025 11:23:35 AM Ordering Provider: GINGER ANDRES Interpreted by: Ginna De La Cruz Preliminary Report By: Ginna De La Cruz Electronically signed By Ginna De La Cruz Dictated Date: 02/26/2025 11:21:43 AM Prelim Date: 02/26/2025 11:23:35 AM Sign Date: 02/26/2025 11:23:35 AM Ordering Provider: GINGER ANDRES [facility]07-07-2025 Nurse Progress note During am assessment patient stated he still experiencing 8/10 constant head pain and informed RN that he does not think he will be nyla to complete the spine MRI that is ordered due to this pain. He and his also expressed the desire to be transferred to another facility. PROCESS SAFETY MANAGEMENT ENGINEER informed. Digitally Signed by Stephanie Durham RN on 02/26/2025 09:42 AM [facility]07-07-2025 Nurse Progress note arrived at pt room with iv pain medication. pt informed me that he had turned his head to the left and briefly lost the ability to speak. pt is alert and oriented, however, he reports increased weakness in bilateral arms and is unable to apply any resistance against rn with arms. educated patient on contraindication to receiving iv narcotic pain medication while exhibiting signs of neuro impairment. at bedside. both verbalized understanding. pt is resting with easy respirations with warm blanket. no acute distress noted. Digitally Signed by SAMIA Jenkins on 02/26/2025 08:22 AM [facility]07-06-2025 Note Date of Service 02/25/2025 Chief Complaint Weakness Subjective 74-year-old male with past medical history significant for hypertension, hyperlipidemia, hypothyroidism, chronic polyneuropathy, severe spinal stenosis, left knee hyperextension requiring brace, dysphagia requiring esophageal dilation. Patient presented to [facility] emergency department 02/24/2024 with worsening weakness. 2 daysprior to ER visit patient was ambulating and had to be lowered to the ground on his buttocks. [place] he has been too weak to bear any weight. In the emergency department vital signs were stable. Labs unremarkable with the exception of a CPK of 320. X-ray chest showed linear atelectasis in the right lung base. Otherwise unremarkable. Patient was subsequently admitted for therapy evaluation. Patient is normally able to ambulate 6 to 10 feet using a rollator. He describes his walking as dragging his legs behind him and putting most of his weight on his upper body. 2 days prior to ER visit patient was ambulating. Initially reported that he had a sudden loss of weakness and had to be lowered to the ground. He then stated that he has felt something coming on and believed that he would be getting weaker. Initially he stated that this was sudden and acute but then later in the conversation he stated that he has been in much worse condition requiring upwards of 4 people to assist him to a standing position. He has had 3 spinal surgeries. Patient states that his symptoms have been p rogressively worsening over the past year. He has not followed up with his spinal surgeon since hislast surgery. He has been following with his PCP. Patient states that he has not followed up with his surgeon because it is too hard for him to get to appointments. He is easily fatigued with leavingthe house to go to appointments. He requires medical transportation for his appointments which costhim about $100 each time he uses this service. Continued bilateral lower extremity weakness. Patient was unable to assist with using Bibiana steady. States that his legs were weight. When he was in bed, he was able to bend his knees and slightly draw both of his legs up. States that this is baseline for him. Denies any new paresthesias. No loss of bowel or bladder function. Objective Vitals and Measurements T: 36.6 C (Oral) TMIN: 36.4 C (Oral) TMAX: 36.8 C (Oral) HR: 71 (Monitored) RR: 18 BP: 134/72 SpO2:98% WT: 93.8 kg Intake and Output 7AM Yesterday to 7AM Today Intake and Output (Last 24 hours) Intake Oral Intake 980.00 Output Urine Voided 600.00 Urine Count 5.00 Emesis Count 0.00 Total Summary Total Intake 980.00 Total Output 600.00 Fluid Balance 380.00 Physical Exam GEN: Appears chronically ill CHEST: Normal S1 and S2. Rhythm is regular. Clear to auscultation, without rales, rhonchi, wheezing. ABD: Positive bowel sounds x 4 quads. Soft, nondistended, nontender. EXT: No significant deformity or joint abnormality.BLE edema, R>L, chronic. NEURO: Sensation grossly intact SKIN: BLE skin discoloration PSYCH: The mental examination revealed the patient was alert and oriented x 4 Weight Current Weight Dosing Weight: 98.4 kg (02/23/25) Current Weight: 93.8 kg (02/25/25) Dosing Weight: 102 kg (02/23/25) Medications Medications (13) Active Scheduled: (3) enoxaparin 40 mg/ 0.4mL syringe 40 mg 0.4 mL, Subcutaneous, qDay levothyroxine 50 mcg tablet 25 mcg 0.5 tab(s), Oral, qDay multivitamin (Myadec) with minerals Therapeutic Multiple Vitamins with Minerals Tablet 1 tab(s), Oral, qDayM Continuous: (0) PRN: (10) acetaminophen 325 mg Tablet 650 mg 2 tab(s), Oral, q4h acetaminophen 325 mg Tablet 650 mg 2 tab(s), Oral, q4h albuterol - ipratropium 2.5 mg-0.5 mg/3 mL Inhal Aletha UD 3 mL, Inhalation, q4hRT benzonatate 100 mg Capsule 100 mg 1 cap(s), Oral, TID calcium carbonate 500 mg Chewable 500 mg 1 tab(s), Chewed, TID guaifenesin 100 mg/5 mL Liquid 120 mL 200 mg 10 mL, Oral, q4h LORAZEPam 2 mg/mL 1 mL vial 0.5 mg 0.25 mL, IV Push, Once LORAZEPam 2 mg/mL 1 mL vial 0.5 mg 0.25 mL, IV Push, Once melatonin 3 mg tablet 6 mg 2 tab(s), Oral, qHS ondansetron 2 mg/ 1 mL 2 mL INJ 4 mg 2 mL, IV Push, q4h Lab Results 02/25 05:21 Glucose Level: 86 Sodium Level: 139 Potassium Level: 4.2 BUN: 18 Creatinine Lvl (s): 0.38 L 02/24 05:27 Glucose Level: 91 Sodium Level: 140 Potassium Level: 4.4 BUN: 16 Creatinine Lvl (s): 0.39 L Imaging Results and Diagnostics XR Chest 1 View Result Date: February 23, 2025 Verified By: SANFORD BARTON MD CLINICAL STATEMENT: IMPRESSION: Linear atelectasis in the right lung base. Otherwise, no acute radiographicfindings. Assessment/Plan 1. Weakness 2. Lumbar stenosis 3. Knee joint hypermobility 4. Scrotal pain 5. Dysphagia Patient with severe lumbar stenosis presents with persistent lower extremity weakness, but no new sensory changes or sphincter dysfunction. History is inconsistent, with initial report of sudden weakness later contradicted by prior similar episodes and prodromal symptoms. He has not followed up with spine surgery since his last operation, and has deferred recommended electromyography and neurology evaluation due to physical difficulty leaving his home and cost. Despite repeated counseling and therapy recommendations, he has not engaged in outpatient follow-up, and now reports further decline in ambulation. MRI is planned to assess for progression. Patient states he may require anesthesia to undergo MRI. He can't recall if he had a sedative last time. He is willing to try sedative prior toMRI. The patient s ongoing nonadherence to outpatient follow-up and recommended care is a significant barrier to management. Patient was evaluated by therapy services with recommendation for SNF. He has a great deal of support at home with Bibiana Gao, motorized wheelchair. At baseline he isable to ambulate 6 to 10 feet and describes this as bearing all of his weight on his upper extremities using a rollator with the brakes locked. States that he drags his feet to ambulate but uses mostly upper body strength. he further clarified that he puts duct tape around the toes of his grippy socks so that he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 Please call [phone]. Belle Brock CMA [facility]05-23-2024 Telephone encounter Note* Telephone Encounter - Sonya Edwards MSW - 01/13/2024 4:57 PM EDT Sw received message from patient requesting call back to see about home visiting physician providers. This Sw called patient back and left message that [facility] physicians do not provide home visiting physician services. [facility]05-23-2024 Miscellaneous Notes* Telephone Encounter - Sonya Edwards MSW - 01/13/2024 4:57 PM EDT Abbe received message from patient requesting call back to see about home visiting physician providers. This Sw called patient back and left message that [facility] physicians do not provide home visiting physician services. [facility] Progress note Author Rena Calixto [facility] August 18, 2023 11:32am Note Date/Time August 18, 2023 11:32am [facility] [address] [place] [address] Progress Note - Wound Care 08/18/23 1128 MR#: [id number] Acct: [id number] Name: TAM WALSH Rep #:[id number] : 1950 72 From: Rena PALMER PCP: Dr. Samson Clement, DO Status:R EG RCR Location: History of Present Illness Date of Service: 08/18/23 Chief Complaint: Non healing right leg ulcer History of Wound: Patient is 71 year old male who has had a non healing wound onhis right anterior leg. He has had this ulcer for approximately 9 months. He has been cleaning it daily with hydrogen peroxide and then placing antibiotic ointment. He has issues with bilateral lower extremity edema. He states he wears compression socks and an KRISTEN wrap to help his chronic edema. He does sleepin a recliner. He has a history of spinal stenosis with surgeries 12/05, 10/08, and 02/09 and hypothyroidism and polyneuropathy from the back pain, and also has lower extremity leg weakness from his back pain. Obtained a wound culture on 03/26/22 which was positive for Staphylococcus aureus and he was treated Doxycycline. Venous studies obtained 05/13/22 which showed Chronic deep vein thrombosis is noted in the right tibio-peroneal trunk. Chronic superficial vein thrombosis is noted in the left greater saphenous vein. The right greater saphenous vein demonstrates valvular incompetence below the knee. The right accessory saphenousvein demonstrates valvular incompetence. The left saphenofemoral junction, greater saphenous vein, and accessory saphenous vein demonstrate valvular incompetence. Arterial studies obtained on 05/13/22 show Right SINDY 1.48 and Left SINDY 1.46 with Dopppler/PVR waveforms normal at rest bilaterally. He saw Dr. Pang on 05/28/22 and he states that the patient's wounds are improving with compression, he will hold further imaging/intervention unless wounds regress or recur and the patient is to follow up with him in 2 months or sooner if things worsen. Wound care - Collagen hydrogel covered with Hessmer SAP. Wear compression stockings with and KRISTEN wrap over the the right compression stocking. Today he denies fever, chills, nausea and vomiting. He states he has a good appetite. Subjective Subjective Mr. Walsh is a 72-year-old male presenting to wound care center today for follow-up evaluation of left digital wounds. Patient has been doing his home dressing changes as instructed. He is following up with Dr. Pang sometime in the new year. He states great improvement to his wound. He denies trauma. Denies constitutional symptoms. He states that he is getting a small rash on his bilateral arms secondary to the antibiotic and will stop that because of thepruritus. He denies trauma. Denies constitutional symptoms. No other pedal complaints at this time. Objective Data Objective Data Vital Signs: Vital Signs Temp Pulse Resp BP O2 Del Method 97.2 F L 79 18 118/67 Room Air 08/18/23 10:43 08/18/23 10:43 08/18/23 10:43 08/18/23 10:43 08/18/23 10:43 Oxygen Delivery Method Room Air Weight: 95.708 kg Body Mass Index (BMI) 29.4 Physical Exam Narrative Vascular: DP and PT pulses are palpable. CFT is brisk. Blanchable erythema appreciated to the dorsal aspect of the right foot, improved. Nonpitting edema appreciated to the left lower extremity, improved. Skin temperature gradient warm to warm from proximal ankle to distal digit. Neurological: Light touch intact. Patient responds to painful stimuli. Dermatological: Full-thickness ulceration appreciated to the hallux which is healed. Full-thickness ulceration appreciated to the second digit to the left foot measuring 0.8 x 0.4 x 0.1 cm. Wound base is granular nature. No drainage. Evidence of interdigital maceration in all 4 webspaces of the left foot, improved. Excision debridement down to and including subcutaneous tissue with a number 5 mm dermal curette to the left second digit. Predebridement measurement is 0.6 x0.3 x 0.1 cm. Postdebridement measurement is 0.8 x 0.4 x 0.1 cm. Musculoskeletal: Moderate palpatory tenderness appreciated to the hallux and second digit full-thickness ulceration. No pain with calf compression. Debridement Note Debridement Note Debridement Free Text: Excision debridement down to and including subcutaneous tissue with a number 5 mm dermal curette to the left second digit. Predebridement measurement is 0.6 x 0.3 x 0.1 cm. Postdebridement measurement is 0.8 x 0.4 x 0.1 cm. Post-Debridement Measurements and Additional Note: Post-Debridement Measurements/Treatment WC - Nurse 1 - General Ulcer Assessment Start: 08/04/23 10:14 Freq: Status: Active Protocol: [email or web address] Activity Type Activity Date Activity User E-sign Co-sign Detail Recorded Client Recorded Date Recorded By Document 08/04/23 10:15 [facility] Desktop 08/04/23 10:27 [facility] Document 08/18/23 10:43 Desktop 08/18/23 10:50 08/04/23 08/18/23 10:15 10:43 - Today's Visit Information Type of service Follow-up Visit Follow-up Visit (Physician/DIRECTOR OF SUPPLY CHAIN (Physician/DIRECTOR OF SUPPLY CHAIN ) ) Arrival Mode Wheelchair Wheelchair Transfer Assistance None None Accompanied by stays in chair Patient Identification Verified (Name & Yes Yes ) Patient Requires Transmission-Based No No Precautions Height and Weight Body Mass Index (BMI) 29.4 29.4 BMI Classification Overweight Overweight Vital Signs Temperature (97.8 F-99.1 F) 97.1 F L 97.2 F L Temperature Source Temporal Temporal Pulse Rate (60-100) 86 79 Pulse Location Monitor Monitor Respiratory Rate (12-18) 16 18 Respiratory rate source Observation Observation Oxygen Delivery Method Room Air Room Air Blood Pressure (90/60-120/80) 112/60 118/67 Blood Pressure Mean (mm Hg) 77 84 Source Monitor Monitor Position Sitting Sitting Blood Pressure Location Right Arm Right Arm History Since Last Visit- (Skip if this is Patient's initial visit) Have you changed medications since your No No last visit? Any new allergies or adverse reactions No No Had a fall/change in ADL's that may No No increase risk of falls Signs or symptoms of abuse and/or No No neglect since last visit Have you been in the hospital since your Yes last visit? Has dressing in place as prescribed Yes Yes Has compression in place as prescribed N/A Yes Has offloadiing in place as prescribed N/A Yes Experienced any changes in pain level or No No management Left Footwear Slipper Other Footwear (Comment) Right Footwear Slipper No Footwear Other Footwear socks over kristen wrap Pain Scale: 0-10 Numeric Is Patient Pain Free? Yes No - Nurse 1 - General Ulcer Measurement Start: 08/04/23 10:14 Freq: Status: Active Protocol: Activity Type Activity Date Activity User E-sign Co-sign Detail Recorded Client Recorded Date Recorded By Document 08/04/23 10:15 [facility] Desktop 08/04/23 10:27 [facility] Document 08/18/23 10:43 Desktop 08/18/23 10:50 08/04/23 08/18/23 10:15 10:43 Wound Center Nurse 1 #4 Hallux med -Combined with other wound No -Current Size (cm) - Length 0.5 1.0 -Current Size (cm) - Width 0.3 0.5 -Current Size (cm) - Depth 0.1 0.1 -Total Square Cm 0.15 0.50 -Date of Last Picture (Recall this 08/04/23 field) -Photo Taken Yes No -Epithelialization Large 67-100% Small 1-33% -Tunneling No No -Undermining/Tunneling No No -Circular Undermining No No -Exudate Amt Small -Exudate Type Serous -Wound Margin Distinct, Distinct, Outline Outline Attached Attached -Granulation Amt Medium (34-66%) Medium (34-66%) -Granulation Quality Red Red -Slough/Fibrin Yes -Necrosis Amt Medium (34-66%) Medium (34-66%) -Necrotic Tissue Type Eschar -Structure Exposed N/A -Texture (Taylor-wound Skin Appearance) Assessed, Assessed Localized Edema -Moisture (Taylor-wound Skin Appearance) Assessed,Dry/ Assessed Scaly -Color (Taylor-wound Skin Appearance) Assessed Assessed -Temperature (Taylor-wound Skin No Abnormality No Abnormality Appearance) (Pt Warm) (Pt Warm) -Tenderness on Palpation (Taylor-wound No No Skin Appearance) -Ulcer Cleansing Rinsed/ Soap and Water Irrigated with Saline -Foul Odor after Cleansing No No -Anesthetic Used 5% Lidocaine 5% Lidocaine Gel Gel #5 2nd toe -Combined with other wound No -Current Size (cm) - Length 0.8 1.0 -Current Size (cm) - Width 0.4 1.0 -Current Size (cm) - Depth 0.1 0.1 -Total Square Cm 0.32 1.00 -Date of Last Picture (Recall this 08/04/23 field) -Photo Taken Yes No -Epithelialization Large 67-100% Medium 34-66% -Tunneling No No -Undermining/Tunneling No No -Circular Undermining No No -Exudate Amt Small Medium -Exudate Type Serous Yellow/Green -Wound Margin Distinct, Distinct, Outline Outline Attached Attached -Granulation Amt Medium (34-66%) Medium (34-66%) -Granulation Quality Red Red -Slough/Fibrin Yes -Necrosis Amt Medium (34-66%) Small (1-33%) -Necrotic Tissue Type Eschar Adherent Slough -Structure Exposed None/Limited to Skin Breakdown -Texture (Taylor-wound Skin Appearance) Assessed, Assessed Scarring -Moisture (Taylor-wound Skin Appearance) Assessed,Dry/ Assessed Scaly -Color (Taylor-wound Skin Appearance) Assessed Assessed -Temperature (Taylor-wound Skin No Abnormality No Abnormality Appearance) (Pt Warm) (Pt Warm) -Tenderness on Palpation (Taylor-wound No Skin Appearance) -Ulcer Cleansing Rinsed/ Soap and Water Irrigated with Saline -Foul Odor after Cleansing No -Anesthetic Used 5% Lidocaine 5% Lidocaine Gel Gel Left Calf (cm) 35.5 Left Ankle (cm) 23.5 WC - Nurse 2 - General Ulcer CM Notes Start: 08/04/23 10:14 Freq: Status: Active Protocol: Activity Type Activity Date Activity User E-sign Co-sign Detail Recorded Client Recorded Date Recorded By Document 08/04/23 10:35 Desktop 08/04/23 10:36 Document 08/18/23 10:58 Laptop 08/18/23 11:01 08/04/23 08/18/23 10:35 10:58 Wound Center Nurse 2 #4 [facility] med -Time 10:36 -Correct Patient Yes No -Correct Side, Site, Position Yes No -Correct Procedure Yes No -Procedure Performed Yes No -Type of Procedure Debridement -Clinical Debridement Subcutaneous -Tissue Removed Subcutaneous -Post Debridement (cm) - Length 2.0 0 -Post Debridement (cm) - Width 0.5 0 -Post Debridement (cm) - Depth 0.1 0 -Total Square (Post) (cm) 1.00 0 -Area of Debridement (cm) - Length 2.0 0 -Area of Debridement (cm) - Width 0.5 0 -Total Square (Area) (cm) 1.00 0 -Tunneling No -Undermining/Tunneling No -Circular Undermining No -Wound/Ulcer Outcome Not Healed Healed- Epithelialized -Ulcer Cleansing Rinsed/ Irrigated with Saline -Foul Odor after Cleansing No -Bioengineered Tissue No -Bleeding Controlled with Pressure -Treatment Response Procedure Tolerated Well -Offloading No -Debridement - Subq, 1st 20sq cm No #5 2nd toe -Time 10:35 11:00 -Correct Patient Yes Yes -Correct Side, Site, Position Yes Yes -Correct Procedure Yes Yes -Procedure Performed Yes Yes -Type of Procedure Debridement Debridement -Clinical Debridement Subcutaneous Subcutaneous -Tissue Removed Subcutaneous Subcutaneous -Post Debridement (cm) - Length 1 0.8 -Post Debridement (cm) - Width 0.7 0.4 -Post Debridement (cm) - Depth 0.1 0.1 -Total Square (Post) (cm) 0.7 0.32 -Area of Debridement (cm) - Length 1.0 0.8 -Area of Debridement (cm) - Width 0.7 0.4 -Total Square (Area) (cm) 0.70 0.32 -Tunneling No No -Undermining/Tunneling No No -Circular Undermining No No -Wound/Ulcer Outcome Not Healed Not Healed -Ulcer Cleansing Rinsed/ Rinsed/ Irrigated with Irrigated with Saline Saline -Foul Odor after Cleansing No No -Bioengineered Tissue No No -Bleeding Controlled with Pressure Pressure -Treatment Response Procedure Procedure Tolerated Well Tolerated Well -Offloading No No -Debridement - Subq, 1st 20sq cm Yes Yes Pain Scale: 0-10 Numeric Is Patient Pain Free? Yes Yes - Nurse 3 - General Ulcer D/C NN Start: 08/04/23 10:14 Freq: Status: Active Protocol: Activity Type Activity Date Activity User E-sign Co-sign Detail Recorded Client Recorded Date Recorded By Document 08/04/23 11:09 Desktop 08/04/23 11:09 08/04/23 11:09 Wound Care Center Nurse 3 #4 Hallux med -Primary Dressing Covered/Secured with Dry Gauze & Roll Gauze, Secured with Tape #5 2nd toe -Primary Dressing Covered/Secured with Dry Gauze & Roll Gauze, Secured with Tape Pain Scale: 0-10 Numeric Is Patient Pain Free? Yes Assessment/Plan Assessment/Plan (1) Non-pressure chronic ulcer of other part of left foot with fat layer exposed: CODE(S): L97.522 - Non-pressure chronic ulcer of other part of left foot with fat layer exposed PLAN: Patient was examined and evaluated. All findings were discussed with the patient. All questions were answered to the patient's satisfaction. Excision debridement down to and including subcutaneous tissue with a number 5 mm dermal curette to the left second digit. Predebridement measurement is 0.6 x0.3 x 0.1 cm. Postdebridement measurement is 0.8 x 0.4 x 0.1 cm. Continue Betadine paint and gauze with compression to the left lower extremity. Follow-up at the wound care center with Dr. Calixto in 2 week. (2) Venous insufficiency of left lower extremity: CODE(S): I87.2 - Venous insufficiency (chronic) (peripheral) 08/18/23 1132 <Electronically signed by Rena Calixto DPM> Cosigner Signature (if applicable): CC: ~ Signed [facility] Work Phone: [phone] 767-241812-13-2023 Progress note Author Rena Calixto [facility] August 04, 2023 12:39pm Note Date/Time August 04, 2023 12:39pm [facility] [address] [place] [address] Progress Note - Wound Care 08/04/23 1235 MR#: [id number] Acct: [id number] Name: TAM WALSH Rep #:[id number] : 1950 72 From: Rena Calixto D PM PCP: Dr. Samson Clement, DO Status:R EG RCR Location: History of Present Illness Date of Service: 08/04/23 Chief Complaint: Non healing right leg ulcer History of Wound: Patient is 71 year old male who has had a non healing wound onhis right anterior leg. He has had this ulcer for approximately 9 months. He has been cleaning it daily with hydrogen peroxide and then placing antibiotic ointment. He has issues with bilateral lower extremity edema. He states he wears compression socks and an KRISTEN wrap to help his chronic edema. He does sleepin a recliner. He has a history of spinal stenosis with surgeries 12/05, 10/08, and 02/09 and hypothyroidism and polyneuropathy from the back pain, and also has lower extremity leg weakness from his back pain. Obtained a wound culture on 03/26/22 which was positive for Staphylococcus aureus and he was treated Doxycycline. Venous studies obtained 05/13/22 which showed Chronic deep vein thrombosis is noted in the right tibio-peroneal trunk. Chronic superficial vein thrombosis is noted in the left greater saphenous vein. The right greater saphenous vein demonstrates valvular incompetence below the knee. The right accessory saphenousvein demonstrates valvular incompetence. The left saphenofemoral junction, greater saphenous vein, and accessory saphenous vein demonstrate valvular incompetence. Arterial studies obtained on 05/13/22 show Right SINDY 1.48 and Left SINDY 1.46 with Dopppler/PVR waveforms normal at rest bilaterally. He saw Dr. Pang on 05/28/22 and he states that the patient's wounds are improving with compression, he will hold further imaging/intervention unless wounds regress or recur and the patient is to follow up with him in 2 months or sooner if things worsen. Wound care - Collagen hydrogel covered with Hessmer SAP. Wear compression stockings with and KRISTEN wrap over the the right compression stocking. Today he denies fever, chills, nausea and vomiting. He states he has a good appetite. Subjective Subjective Mr. Walsh is a 72-year-old male presenting to wound care center today for follow-up evaluation of left digital wounds. Patient was seen last week at [facility] where he was admitted for knee pain and eventually presorted to a [facility] facility for [facility]hab. Since being at the rehab the patient has rest and elevate his left lower extremity has noticed his swelling has improved as well as his wounds. He has been getting dressing changes at the facility as well as taking his oral ciprofloxacin antibiotic that was prescribedby Dr. Calixto. he denies any trauma. Denies constitutional symptoms. No other pedal complaints at this time. Objective Data Objective Data Vital Signs: Vital Signs Temp Pulse Resp BP O2 Del Method 97.1 F L 86 16 112/60 Room Air 08/04/23 10:15 08/04/23 10:15 08/04/23 10:15 08/04/23 10:15 08/04/23 10:15 Oxygen Delivery Method Room Air Weight: 95.708 kg Body Mass Index (BMI) 29.4 Physical Exam Narrative Vascular: DP and PT pulses are palpable. CFT is brisk. Blanchable erythema appreciated to the dorsal aspect of the right foot, improved. Nonpitting edema appreciated to the left lower extremity, improved. Skin temperature gradient warm to warm from proximal ankle to distal digit. Neurological: Light touch intact. Patient responds to painful stimuli. Dermatological: Full-thickness ulceration appreciated to the hallux measuring 2.0 x 0.5 x 0.1 cm. Wound base is fibrogranular nature. No drainage. Full-thickness ulceration appreciated to the second digit to the left foot measuring 1.0 x 0.7 x 0.1 cm. Wound base is granular nature. No drainage. Both wounds show no evidence of probe to bone or sign of infection at this time. Evidence of interdigital maceration in all 4 webspaces of the left foot. Malodor improved. Excisional debridement down to and including subcutaneous tissue with a number 5mm dermal curette to the left hallux. Predebridement measurement is 1.9 x 0.4 x0.1 cm. Postdebridement measurement is 2.0 x 0.5 x 0.1 cm. Excision debridement down to and including subcutaneous tissue with a number 5 mm dermal curette to the left second digit. Predebridement measurement is 0.8 x0.5 x 0.1 cm. Postdebridement measurement is 1.0 x 0.7 x 0.1 cm. Musculoskeletal: Moderate palpatory tenderness appreciated to the hallux and second digit full-thickness ulceration. No pain with calf compression. Debridement Note Debridement Note Debridement Free Text: Excisional debridement down to and including subcutaneoustissue with a number 5 mm dermal curette to the left hallux. Predebridement measurement is 1.9 x 0.4 x 0.1 cm. Postdebridement measurement is 2.0 x 0.5 x 0.1 cm. Excision debridement down to and including subcutaneous tissue with a number 5 mm dermal curette to the left second digit. Predebridement measurement is 0.8 x0.5 x 0.1 cm. Postdebridement measurement is 1.0 x 0.7 x 0.1 cm. Post-Debridement Measurements and Additional Note: Post-Debridement Measurements/Treatment - Nurse 1 - General Ulcer Assessment Start: 08/04/23 10:14 Freq: Status: Active Protocol: GREGORY Activity Type Activity Date Activity User E-sign Co-sign Detail Recorded Client Recorded Date Recorded By Document 08/04/23 10:15 [facility] Desktop 08/04/23 10:27 [facility] 08/04/23 10:15 - Today's Visit Information Type of service Follow-up Visit (Physician/DIRECTOR OF SUPPLY CHAIN ) Arrival Mode Wheelchair Transfer Assistance None Accompanied by stays in chair Patient Identification Verified (Name & Yes ) Patient Requires Transmission-Based No Precautions Height and Weight Body Mass Index (BMI) 29.4 BMI Classification Overweight Vital Signs Temperature (97.8 F-99.1 F) 97.1 F L Temperature Source Temporal Pulse Rate (60-100) 86 Pulse Location Monitor Respiratory Rate (12-18) 16 Respiratory rate source Observation Oxygen Delivery Method Room Air Blood Pressure (90/60-120/80) 112/60 Blood Pressure Mean (mm Hg) 77 Source Monitor Position Sitting Blood Pressure Location Right Arm History Since Last Visit- (Skip if this is Patient's initial visit) Have you changed medications since your No last visit? Any new allergies or adverse reactions No Had a fall/change in ADL's that may No increase risk of falls Signs or symptoms of abuse and/or No neglect since last visit Have you been in the hospital since your Yes last visit? Has dressing in place as prescribed Yes Has compression in place as prescribed N/A Has offloadiing in place as prescribed N/A Experienced any changes in pain level or No management Left Footwear Slipper Right Footwear Slipper Pain Scale: 0-10 Numeric Is Patient Pain Free? Yes WC - Nurse 1 - General Ulcer Measurement Start: 08/04/23 10:14 Freq: Status: Active Protocol: Activity Type Activity Date Activity User E-sign Co-sign Detail Recorded Client Recorded Date Recorded By Document 08/04/23 10:15 [facility] Desktop 08/04/23 10:27 [facility] 08/04/23 10:15 Wound Center Nurse 1 #5 2nd toe -Combined with other wound No -Current Size (cm) - Length 0.8 -Current Size (cm) - Width 0.4 -Current Size (cm) - Depth 0.1 -Total Square Cm 0.32 -Date of Last Picture (Recall this 08/04/23 field) -Photo Taken Yes -Epithelialization Large 67-100% -Tunneling No -Undermining/Tunneling No -Circular Undermining No -Exudate Amt Small -Exudate Type Serous -Wound Margin Distinct, Outline Attached -Granulation Amt Medium (34-66%) -Granulation Quality Red -Slough/Fibrin Yes -Necrosis Amt Medium (34-66%) -Necrotic Tissue Type Eschar -Texture (Taylor-wound Skin Appearance) Assessed, Scarring -Moisture (Taylor-wound Skin Appearance) Assessed,Dry/ Scaly -Color (Taylor-wound Skin Appearance) Assessed -Temperature (Taylor-wound Skin No Abnormality Appearance) (Pt Warm) -Tenderness on Palpation (Taylor-wound No Skin Appearance) -Ulcer Cleansing Rinsed/ Irrigated with Saline -Foul Odor after Cleansing No -Anesthetic Used 5% Lidocaine Gel #4 Hallux med -Combined with other wound No -Current Size (cm) - Length 0.5 -Current Size (cm) - Width 0.3 -Current Size (cm) - Depth 0.1 -Total Square Cm 0.15 -Date of Last Picture (Recall this 08/04/23 field) -Photo Taken Yes -Epithelialization Large 67-100% -Tunneling No -Undermining/Tunneling No -Circular Undermining No -Exudate Amt Small -Exudate Type Serous -Wound Margin Distinct, Outline Attached -Granulation Amt Medium (34-66%) -Granulation Quality Red -Slough/Fibrin Yes -Necrosis Amt Medium (34-66%) -Necrotic Tissue Type Eschar -Texture (Taylor-wound Skin Appearance) Assessed, Localized Edema -Moisture (Taylor-wound Skin Appearance) Assessed,Dry/ Scaly -Color (Taylor-wound Skin Appearance) Assessed -Temperature (Taylor-wound Skin No Abnormality Appearance) (Pt Warm) -Tenderness on Palpation (Taylor-wound No Skin Appearance) -Ulcer Cleansing Rinsed/ Irrigated with Saline -Foul Odor after Cleansing No -Anesthetic Used 5% Lidocaine Gel WC - Nurse 2 - General Ulcer CM Notes Start: 08/04/23 10:14 Freq: Status: Active Protocol: Activity Type Activity Date Activity User E-sign Co-sign Detail Recorded Client Recorded Date Recorded By Document 08/04/23 10:35 Desktop 08/04/23 10:36 08/04/23 10:35 Wound Center Nurse 2 #5 2nd toe -Time 10:35 -Correct Patient Yes -Correct Side, Site, Position Yes -Correct Procedure Yes -Procedure Performed Yes -Type of Procedure Debridement -Clinical Debridement Subcutaneous -Tissue Removed Subcutaneous -Post Debridement (cm) - Length 1 -Post Debridement (cm) - Width 0.7 -Post Debridement (cm) - Depth 0.1 -Total Square (Post) (cm) 0.7 -Area of Debridement (cm) - Length 1.0 -Area of Debridement (cm) - Width 0.7 -Total Square (Area) (cm) 0.70 -Tunneling No -Undermining/Tunneling No -Circular Undermining No -Wound/Ulcer Outcome Not Healed -Ulcer Cleansing Rinsed/ Irrigated with Saline -Foul Odor after Cleansing No -Bioengineered Tissue No -Bleeding Controlled with Pressure -Treatment Response Procedure Tolerated Well -Offloading No -Debridement - Subq, 1st 20sq cm Yes #4 Hallux med -Time 10:36 -Correct Patient Yes -Correct Side, Site, Position Yes -Correct Procedure Yes -Procedure Performed Yes -Type of Procedure Debridement -Clinical Debridement Subcutaneous -Tissue Removed Subcutaneous -Post Debridement (cm) - Length 2.0 -Post Debridement (cm) - Width 0.5 -Post Debridement (cm) - Depth 0.1 -Total Square (Post) (cm) 1.00 -Area of Debridement (cm) - Length 2.0 -Area of Debridement (cm) - Width 0.5 -Total Square (Area) (cm) 1.00 -Tunneling No -Undermining/Tunneling No -Circular Undermining No -Wound/Ulcer Outcome Not Healed -Ulcer Cleansing Rinsed/ Irrigated with Saline -Foul Odor after Cleansing No -Bioengineered Tissue No -Bleeding Controlled with Pressure -Treatment Response Procedure Tolerated Well -Offloading No -Debridement - Subq, 1st 20sq cm No Pain Scale: 0-10 Numeric Is Patient Pain Free? Yes - Nurse 3 - General Ulcer D/C NN Start: 08/04/23 10:14 Freq: Status: Active Protocol: Activity Type Activity Date Activity User E-sign Co-sign Detail Recorded Client Recorded Date Recorded By Document 08/04/23 11:09 Desktop 08/04/23 11:09 08/04/23 11:09 [facility] Nurse 3 #5 2nd toe -Primary Dressing Covered/Secured with Dry Gauze & Roll Gauze, Secured with Tape #4 Hallux med -Primary Dressing Covered/Secured with Dry Gauze & Roll Gauze, Secured with Tape Pain Scale: 0-10 Numeric Is Patient Pain Free? Yes Assessment/Plan Assessment/Plan (1) Non-pressure chronic ulcer of other part of left foot with fat layer exposed: CODE(S): L97.522 - Non-pressure chronic ulcer of other part of left foot with fat layer exposed PLAN: Patient was examined and evaluated. All findings were discussed with the patient. All questions were answered to the patient's satisfaction. Excisional debridement down to and including subcutaneous tissue with a number 5mm dermal curette to the left hallux. Predebridement measurement is 1.9 x 0.4 x0.1 cm. Postdebridement measurement is 2.0 x 0.5 x 0.1 cm. Excision debridement down to and including subcutaneous tissue with a number 5 mm dermal curette to the left second digit. Predebridement measurement is 0.8 x0.5 x 0.1 cm. Postdebridement measurement is 1.0 x 0.7 x 0.1 cm. Both wounds were dressed with Betadine wet-to-dry. Educated the patient that hewill need to have the nurses at the facility change these daily as well as continue take his oral antibiotic, ciprofloxacin as written. Patient will follow-up with Dr. Pang for procedure on 08/25/2023. Follow-up in 2 weeks. (2) Venous insufficiency of left lower extremity: CODE(S): I87.2 - Venous insufficiency (chronic) (peripheral) (3) Cellulitis of left foot: CODE(S): L03.116 - Cellulitis of left lower limb 08/04/23 1239 <Electronically signed by Rena Calixto DPM> Rebeler Signature (if applicable): CC: ~ Signed [facility] Work Phone: [phone] 322-242612-06-2023 Note Discharge Instructions Thank you for allowing [facility] to assist you with your healthcare needs. The following is importantdischarge information regarding your hospital visit. Your Care Team Sabrina Nixon CNP Your Diagnosis Chronic polyneuropathy HTN (hypertension) Hypothyroidism Knee pain-swelling What to do next Instructions From Your Doctor Patient was admitted on Wednesday due to intractable knee pain and the inability to ambulate. We performed an MRI of the left knee which revealed a degenerative tear of the lateral meniscus. Patient wasseen by Dr. Tacos Bartlett, orthopedics, who stated patient is not a surgical candidate. He recommended steroids to help with pain as well as intensive PT and OT to get moving again. Patient to follow-up with Dr. Bartlett as an outpatient to possibly be fitted for a knee brace. He is medically optimized for discharge today to continue PT and OT in a skilled facility. Scheduled Follow-Up Appointments Appointment Type When With Where Contact Information[facility] Medicare with Labs 01/25/2024 01:00PM RENÉE MATIAS DO [facility] Follow Up Appointments Follow Up with TACOS BARTLETT MD When 08/06/2023 10:00 AM EST Why: This is your post-hospital orthopedic appointment to be fit for a brace. It is in the [facility]. Where: [address] [place] [address]- [phone] The Following Activity and Diet Have Been Ordered for You Transfer of Care Activity - Ordered -- As instructed by therapy, 07/28/23 15:25:00 EST Transfer of Care Diet - Ordered -- Type of Diet: Regular Diet, 07/28/23 15:25:00 EST The Following Equipment Has Been Ordered for You Discharge Home Equipment Transfer of Care Wound Care - Ordered -- Cleanse left foot wound with soap and water, rinse, pat dry and apply betadine to wound bed. Place gauze between toes and wrap foot with kerlix., 07/28/23 15:25:00 EST The Following Treatments Have Been Ordered for You Discharge Labs No qualifying data available. Discharge Radiology No qualifying data available. Other Therapies Transfer of Care OT - Ordered -- Reason for therapy: weakness, 07/28/23 15:25:00 EST Transfer of Care PT - Ordered -- Reason for therapy: Weakness, 07/28/23 15:25:00 EST Post Acute Orders Transfer of Care Admission Level of Care - Ordered -- Level of Care SNF, 07/28/23 15:25:34 EST Transfer of Care Code Status - Ordered -- Full Code, Constant Order Transfer of Care Orders Electronically Signed By - Ordered -- 07/28/23 15:25:00 EST, SABRINA NIXON APRN-DIRECTOR OF SUPPLY CHAIN Transfer of Care Prognosis - Ordered -- Fair, Patient Aware: Yes Transfer of Care Rehab Potential - Ordered -- Rehab potential fair, 07/28/23 15:25:34 EST Allergies NKA Immunizations This Visit Given Vaccine Dateinfluenza virus vaccine, inactivated 07/26/2023 Medications Please ask your primary doctor or pharmacist before taking any other medication not listed, including over the counter drugs, herbal medications, vitamins and or supplements as they may interact withyour home medications. What How Much When Instructions Last Dose New predniSONE (prednisone 10mg tab (TAPER)) 32-40-83-97-43-46-5mg x 2days/dose by mouth Once a day Duration: 14 Days [id number],[id number],9P1blam,9Y1hipp,1A5osum,0L2wwtj, X2 days. Unchanged aspirin (aspirin 325 mg oral tablet) 1 tab(s) by mouth Every day Unchanged ciprofloxacin (ciprofloxacin 750 mg oral tablet) See instructions 1 tab(s) Oral q12h Unchanged herbal/ nutritional product (Probiotic) Every 24 hours Unchanged hydrochlorothiazide-triamterene (hydrochlorothiazide-triamterene 25 mg-37.5 mg oral tablet) 1 tab(s) by mouth Once a day Unchanged levothyroxine (levothyroxine 25 mcg (0.025 mg) oral tablet) 1 tab(s) by mouth Once a day Unchanged multivitamin (Multiple Vitamins oral tablet) 1 tab(s) by mouth Every day Unchanged multivitamin (Vitamin B Complex oral capsule) 1 cap by mouth Every day Unchanged pantoprazole (Protonix 40 mg oral enteric coated tablet) 1 tab(s) by mouth Once a day Please take this list to your next doctor s visit. Bring all medications you take, including over the counter medications, herbals and other supplements with you to your doctor s visit. Patients and families are reminded to discard old lists and to update any records with all medication providers or retail pharmacies. Medication Leaflets prednisone (PRED panchito bautista) Salas What is the most important information I should know about prednisone? You should not use prednisone if you have a fungal infection anywhere in your body. You should not stop using prednisone suddenly. Follow your doctor's instructions about tapering your dose. What is prednisone? Prednisone is a steroid that reduces inflammation in the body, and also suppresses your immune system. Prednisone is used to treat many different conditions such as hormonal disorders, skin diseases, arthritis, lupus, psoriasis, allergic conditions, ulcerative colitis, Crohn's disease, eye diseases, lung diseases, asthma, tuberculosis, blood cell disorders, kidney disorders, leukemia, lymphoma, multi ple sclerosis, organ transplant rejection, swelling from a brain tumor or injury. Prednisone may also be used for purposes not listed in this medication guide. What should I discuss with my healthcare provider before taking prednisone? You should not use prednisone if you are allergic to it, or if you have a fungal infection anywherein your body. Steroid medication can weaken your immune system, making it easier for you to get an infection or worsening an infection you already have. Tell your doctor about any illness or infection you've had within the past several weeks. Tell your doctor if you have ever had: heart problems, high blood pressure, or a heart attack; glaucoma or cataracts; herpes infection of the eyes; past or present tuberculosis; a parasite infection that causes diarrhea (such as threadworms); any illness that causes diarrhea; underactive thyroid; diabetes; a stomach ulcer, diverticulitis; a colostomy or ileostomy; osteoporosis or low bone mineral density (steroid medication can increase your risk of bone loss); low levels of calcium or potassium in your blood; cirrhosis or other liver disease; mental illness or psychosis; or a muscle disorder such as myasthenia gravis. Long-term use of steroids may lead to bone loss (osteoporosis), especially if you smoke or drink alcohol, if you do not exercise, or if you do not get enough vitamin D or calcium in your diet. It is not known whether this medicine will harm an unborn baby. Tell your doctor if you are or plan to become . You should not breastfeed while using prednisone. How should I take prednisone? Follow all directions on your prescription label and read all medication guides or instruction sheets. Your doctor may occasionally change your dose. Use the medicine exactly as directed. Prednisone is taken daily or every other day, depending on the condition being treated. You may need to take the medicine at a certain time of day. Follow your doctor's instructions about when and how often to take this medicine. Take with food if prednisone upsets your stomach. Measure liquid medicine carefully. Use the dosing syringe provided, or use a medicine dose-measuring device (not a kitchen spoon). Swallow the delayed-release tablet whole and do not crush, chew, or break it. Prednisone can weaken (suppress) your immune system, and you may get an infection more easily. Callyour doctor if you have signs of infection (fever, weakness, cold or flu symptoms, skin sores, diarrhea, frequent or recurring illness). If you have major surgery or a severe injury or infection, your prednisone dose needs may change. Make sure any doctor caring for you knows you are using this medicine. If you use this medicine long-term, you may need medical tests and vision exams. In case of emergency, wear or carry medical identification to let others know you use a steroid. You should not stop using prednisone suddenly. Follow your doctor's instructions about tapering your dose. Store at room temperature away from moisture, heat, and light. What happens if I miss a dose? Take the medicine as soon as you can, but skip the missed dose if it is almost time for your next dose. Do not take two doses at one time. What happens if I overdose? Seek emergency medical attention or call the Poison Help line at . High doses or long-term use of prednisone can lead to thinning skin, easy bruising, changes in bodyfat (especially in your face, neck, back, and waist), increased acne or facial hair, menstrual problems, impotence, or loss of interest in sex. What should I avoid while taking prednisone? Do not receive a 'live' vaccine while using prednisone. The vaccine may not work as well and may not fully protect you from disease. Live vaccines include measles, mumps, rubella (MMR), polio, rotavirus, typhoid, yellow fever, varicella (chickenpox), zoster (shingles), and nasal flu (influenza) vaccine. Avoid being near people who are sick or have infections. Call your doctor for preventive treatment if you are exposed to chickenpox or measles. These conditions can be serious or even fatal in peoplewho are using steroid medicine. Avoid drinking alcohol. What are the possible side effects of prednisone? Get emergency medical help if you have signs of an allergic reaction: hives; difficult breathing; swelling of your face, lips, tongue, or throat. Call your doctor at once if you have: muscle pain or weakness; blurred vision, tunnel vision, eye pain, or seeing halos around lights; severe depression, changes in personality, unusual thoughts or behavior; bloody or tarry stools, coughing up blood or vomit that looks like coffee grounds; swelling, rapid weight gain, feeling short of breath; irregular heartbeats; severe headache, pounding in your neck or ears; decreased adrenal gland hormones--muscle weakness, tiredness, diarrhea, nausea, menstrual changes, skin discoloration, craving salty foods, and feeling light- headed; or low potassium level--leg cramps, constipation, irregular heartbeats, fluttering in your chest, increased thirst or urination, numbness or tingling, muscle weakness or limp feeling. Prednisone can affect growth in children. Tell your doctor if your child is not growing at a normalrate while using this medicine. Common side effects may include: weight gain (especially in your face or your upper back and torso); increased appetite; mood changes, trouble sleeping; changes in your menstrual periods; problems with memory or thought; muscle or joint pain; weakness; headache, dizziness, spinning sensation; nausea, bloating, loss of appetite; slow wound healing; or acne, increased sweating, thinning skin, bruising, pinpoint spots under your skin. This is not a complete list of side effects and others may occur. Call your doctor for medical advice about side effects. You may report side effects to FDA at 0-179-LSR-6049. What other drugs will affect prednisone? Sometimes it is not safe to use certain medications at the same time. Some drugs can affect your blood levels of other drugs you take, which may increase side effects or make the medications less effective. Tell your doctor about all your current medicines. Many drugs can affect prednisone, especially: bupropion; cyclosporine; digoxin; ketoconazole; an antibiotic; control pills or hormone replacement therapy; a diuretic or 'water pill'; insulin or oral diabetes medicine; a blood thinner--warfarin, Coumadin, Jantoven; or NSAIDs (nonsteroidal anti-inflammatory drugs)--aspirin, ibuprofen (Advil, Motrin), naproxen (Aleve), celecoxib, diclofenac, indomethacin, meloxicam, and others. This list is not complete and many other drugs may affect prednisone. This includes prescription and kooz-iou-pgweaor medicines, vitamins, and herbal products. Not all possible drug interactions are listed here. Where can I get more information? Your pharmacist can provide more information about prednisone. Remember, keep this and all other medicines out of the reach of children, never share your medicines with others, and use this medication only for the indication prescribed. Every effort has been made to ensure that the information provided by [employer]. ('[employer]') is accurate, up-to-date, and complete, but no guarantee is made to that effect. Drug information contained herein may be time sensitive. [employer] information has been compiled for use by healthcare practitioners and consumers in the [place] and therefore [employer] does not warrant that uses outside of the [place] are appropriate, unless specifically indicated otherwise. [employer] drug information does not endorse drugs, diagnose patients or recommend therapy. [employer] drug information isan informational resource designed to assist licensed healthcare practitioners in caring for their p atients and/or to serve consumers viewing this service as a supplement to, and not a substitute for, the expertise, skill, knowledge and judgment of healthcare practitioners. The absence of a warningfor a given drug or drug combination in no way should be construed to indicate that the drug or drug combination is safe, effective or appropriate for any given patient. [employer] does not assume any responsibility for any aspect of healthcare administered with the aid of information [employer] provides. The information contained herein is not intended to cover all possible uses, directions, precautions, warnings, drug interactions, allergic reactions, or adverse effects. If you have questions about the drugs you are taking, check with your doctor, nurse or pharmacist. Copyright [id number] [facility]. Version: 10.. Revision Date: 11/17/2018. influenza virus vaccine (injection) (IN floo EN za VYE romelia VAK seen) Afluria PF Quadrivalent , Afluria Quadrivalent , Fluad Quadrivalent PF ,Fluarix PF Quadrivalent , Flublok Quadrivalent , Flucelvax PF Quadrivalent , Flucelvax Quadrivalent , FluLaval PF Quadrivalent , Fluzone High-Dose Quadrivalent PF , Fluzone PF Quadrivalent , Fluzone Quadrivalent What is the most important information I should know about this vaccine? Influenza virus vaccine is made from 'killed viruses' and will not cause you to become ill with theflu virus. What is influenza virus vaccine? Influenza virus ('the flu') is a contagious disease caused by a virus that can spread from one person to another through the air or on surfaces. Flu symptoms include fever, chills, tiredness, aches, sore throat, cough, vomiting, and diarrhea. The flu can also cause sinus infections, ear infections,bronchitis, or serious complications such as pneumonia. Influenza causes thousands of deaths each year, and hundreds of thousands of hospitalizations. Influenza is most dangerous in children, women, older adults, and people with weak immune systems or health problems such as diabetes, heart disease, or cancer. Influenza virus vaccine is for use in adults and children at least 6 months old, to prevent infection caused by influenza virus. This vaccine helps your body develop immunity to the disease, but willnot treat an active infection you already have. Influenza virus vaccine is redeveloped each year to contain specific strains of inactivated (killed) flu virus that are recommended by public health officials for that year. The injectable influenza virus vaccine (flu shot) is made from 'killed viruses.' Influenza virus vaccine is also available in a nasal spray form, which is a 'live virus' vaccine. This medication guide addresses only the injectable form of this vaccine. Like any vaccine, influenza virus vaccine may not provide protection from disease in every person. What should I discuss with my healthcare provider before receiving this vaccine? You may not be able to receive this vaccine if you are allergic to eggs, or if you have ever had a severe allergic reaction to a flu vaccine. Tell your vaccination provider if you have: a weak immune system (caused by disease or by using certain medicine); or a history of Guillain-Renville syndrome (within 6 weeks after receiving a flu vaccine). You can still receive a vaccine if you have a minor cold. In the case of a more severe illness witha fever or any type of infection, wait until you get better before receiving this vaccine. Tell your vaccination provider if you are or . The Centers for Disease Control and Prevention recommends that women get a flu shot duringany trimester of to protect themselves and their babies from flu. The nasal sprayform of influenza vaccine is not recommended for use in women. How is this vaccine given? Some brands of this vaccine are made for use in adults and not in children. Your child's vaccination provider can recommend the best influenza virus vaccine for your child. This vaccine is given as an injection (shot) into a muscle. Children 6 months to 8 years old may need a second flu shot 4 weeks after receiving the first vaccine. The influenza virus vaccine is usually given in May or June. Follow your doctor's instructions or the schedule recommended by your local health department. Since the influenza virus vaccine is redeveloped each year for specific strains of influenza, you should receive a flu vaccine every year. What happens if I miss a dose? Call your doctor if you forget to receive your yearly flu shot in May or June, or if your child misses a booster dose. What happens if I overdose? An overdose of this vaccine is unlikely to occur. What should I avoid before or after receiving this vaccine? Follow your vaccination provider's instructions about any restrictions on food, beverages, or activity. What are the possible side effects of influenza virus vaccine? Get emergency medical help if you have signs of an allergic reaction: hives; difficulty breathing; swelling of your face, lips, tongue, or throat. You should not receive a booster vaccine if you had a life threatening allergic reaction after the first shot. Keep track of any and all side effects you have. If you receive an influenza virus vaccine in the future, you will need to tell the vaccination provider if the previous shot caused any side effects. Influenza virus vaccine is made from 'killed viruses' and will not cause you to become ill with theflu virus. You may have flu-like symptoms at any time during flu season that may be caused by otherstrains of influenza virus. Call your doctor at once if you have: a light-headed feeling, like you might pass out; severe weakness or unusual feeling in your arms and legs; numbness, pain, tingling, burning or prickly feeling; vision or hearing problems; or a fever higher than 101 degrees F. Common side effects may include: pain, redness, tenderness, swelling, bruising, or a hard lump where the shot was given; diarrhea, loss of appetite; muscle pain; headache, tiredness; or fussiness, crying, or drowsiness in a child. This is not a complete list of side effects and others may occur. Call your doctor for medical advice about side effects. You may report vaccine side effects to the [place] Department of Health and Human Services at . What other drugs will affect influenza virus vaccine? If you are using any of these medications, you may not be able to receive the vaccine, or may need to wait until the other treatments are finished: steroid medicine; medications to treat psoriasis, rheumatoid arthritis, or other autoimmune disorders; or medicines to treat or prevent organ transplant rejection. This list is not complete. Other drugs may affect influenza virus vaccine, including prescription and ymwo-kjo-rirtdrw medicines, vitamins, and herbal products. Not all possible drug interactions arelisted here. Where can I get more information? Your vaccination provider, pharmacist, or doctor can provide more information about this vaccine. Additional information is available from your local health department or the Centers for Disease Control and Prevention. Remember, keep this and all other medicines out of the reach of children, never share your medicines with others, and use this medication only for the indication prescribed. Every effort has been made to ensure that the information provided by [employer]. ('[employer]') is accurate, up-to-date, and complete, but no guarantee is made to that effect. Drug information contained herein may be time sensitive. [employer] information has been compiled for use by healthcare practitioners and consumers in the [place] and therefore [employer] does not warrant that uses outside of the [place] are appropriate, unless specifically indicated otherwise. [employer] drug information does not endorse drugs, diagnose patients or recommend therapy. [employer] drug information isan informational resource designed to assist licensed healthcare practitioners in caring for their p atients and/or to serve consumers viewing this service as a supplement to, and not a substitute for, the expertise, skill, knowledge and judgment of healthcare practitioners. The absence of a warningfor a given drug or drug combination in no way should be construed to indicate that the drug or drug combination is safe, effective or appropriate for any given patient. [employer] does not assume any responsibility for any aspect of healthcare administered with the aid of information [employer] provides. The information contained herein is not intended to cover all possible uses, directions, precautions, warnings, drug interactions, allergic reactions, or adverse effects. If you have questions about the drugs you are taking, check with your doctor, nurse or pharmacist. Copyright 7865-4376 [employer]. Version: 12.. Revision Date: 03/24/2023. Education Materials Acute Knee Pain, Adult Acute knee pain is sudden and may be caused by damage, swelling, or irritation of the muscles and tissues that support your knee. The injury may result from: A fall. An injury to your knee from twisting motions. A hit to the knee. Infection. Acute knee pain may go away on its own with time and rest. If it does not, your health care provider may order tests to find the cause of the pain. These may include: Imaging tests, such as an X-ray, MRI, or ultrasound. Joint aspiration. In this test, fluid is removed from the knee. Arthroscopy. In this test, a lighted tube is inserted into the knee and an image is projected onto a TV screen. Biopsy. In this test, a sample of tissue is removed from the body and studied under a microscope. Follow these instructions at home: Pay attention to any changes in your symptoms. Take these actions to relieve your pain. If you have a knee sleeve or brace: Wear the sleeve or brace as told by your health care provider. Remove it only as told by your health care provider. Loosen the sleeve or brace if your toes tingle, become numb, or turn cold and blue. Keep the sleeve or brace clean. If the sleeve or brace is not waterproof: ? Do not let it get wet. ? Cover it with a watertight covering when you take a bath or shower. Activity Rest your knee. Do not do things that cause pain or make pain worse. Avoid high-impact activities or exercises, such as running, jumping rope, or doing jumping jacks. Work with a physical therapist to make a safe exercise program, as recommended by your health care provider. Do exercises as told by your physical therapist. Managing pain, stiffness, and swelling If directed, put ice on the knee: ? Put ice in a plastic bag. ? Place a towel between your skin and the bag. ? Leave the ice on for 20 minutes, 2 3 times a day. If directed, use an elastic bandage to put pressure (compression) on your injured knee. This may control swelling, give support, and help with discomfort. General instructions Take ikjj-dik-pnhxawx and prescription medicines only as told by your health care provider. Raise (elevate) your knee above the level of your heart when you are sitting or lying down. Sleep with a pillow under your knee. Do not use any products that contain nicotine or tobacco, such as cigarettes, e- cigarettes, and chewing tobacco. These can delay healing. If you need help quitting, ask your health care provider. If you are overweight, work with your health care provider and a dietitian to set a weight-loss goal that is healthy and reasonable for you. Extra weight can put pressure on your knee. Keep all follow-up visits as told by your health care provider. This is important. Contact a health care provider if: Your knee pain continues, changes, or gets worse. You have a fever along with knee pain. Your knee feels warm to the touch. Your knee luana or locks up. Get help right away if: Your knee swells, and the swelling becomes worse. You cannot move your knee. You have severe pain in your knee. Summary Acute knee pain can be caused by a fall, an injury, an infection, or damage, swelling, or irritation of the tissues that support your knee. Your health care provider may perform tests to find out the cause of the pain. Pay attention to any changes in your symptoms. Relieve your pain with rest, medicines, light activity, and use of ice. Get help if your pain continues or becomes worse, your knee swells, or you cannot move your knee. This information is not intended to replace advice given to you by your health care provider. Make sure you discuss any questions you have with your health care provider. Document Released: 06/05/2008 Document Revised: 01/19/2019 Document Reviewed: 01/19/2019 [employer] Patient Education 2020 [employer] Additional Information VACCINATE! IT SAVES LIVES! Members of the community who have not yet received the COVID-19 vaccine and would like to receive it can visit one of [place] vaccine clinics. There are many vaccine clinic locations within the [facility]. For locations and available times, please visit https://[email or web address].[place].gov/. It is important to note that some COVID mobile vaccine clinics are held outdoors and may be canceled in rainy or stormy conditions. To learn more about pediatric vaccinations (ages 5-11), we invite you to visit the [facility] webpage. [email or web address]/[email or web address]-[email or web address]-Qiqpxbrgus-[email or web address] stions.htmlTo learn more about the COVID-19 vaccine, we invite you to visit the CDC website for a list of frequently asked questions.https://www.cdc.gov/coronavirus/2019-ncov/vaccines/faq.html [facility] Patient Portal Access Instructions: Stay connected with your healthcare team and access your personal medical information anytime with the [facility] Patient Portal. Please follow the directions below to create your [employer] account: 1.Access the email account you provided upon registration to the hospital/physician office.2.Look for an invitation email from [facility].3.Open the email and access the invitation link: AcceptInvitation to [employer].4.Fill in the required burns to create your account. To access your account, visit [email or web address]. Click the blue button labeled Access Patient Portal and then log in with the username and password that you created in the steps above. You will be able to view your test results, lab results, a summary of your visits, upcoming appointments and more. There is also a convenient messaging option where you can send secure messages to your [employer]. In addition, you will have the ability to download any documents or summaries to your computer and/or send the information securely to a physician. Remember that your healthcare information is confidential, so carefully consider who you will allowto register on the [facility] Patient Portal for access to your information. You can also access the [facility] Patient Portal on the [facility]onah. Simply click on Patient Portal and then log into your account. If you would like to receive a full copy of your medical records, please contact the [facility] Medical Records Department by calling [phone], Wednesday through Wednesday between 8 a.m. and 4:30 p.m. HOW TO SAFELY DISPOSE OF PRESCRIPTION MEDICATIONS Please use one of the following methods to safely dispose of your unused medications. 1.Use a drug disposal kit: the drug disposal pouch allows you to safely discard your old and unuseddrugs. Ask your nurse to give you one when you are discharged.2.Visit a local take-back location: Many local pharmacies and police departments have programs that collect old and unwanted prescriptiondrugs. Call your local pharmacy or go to http://bit.ly/1E7Om0d to find one close to you.3.Make use of household items: Use cat litter or old coffee grounds to dispose medications if other options arenot available. Mix your drugs with these household products, seal them in an airtight container andthrow it into the garbage. Call [facility]: [phone] to be sure your drugs can be disposed of in this way. Some medicines may require a different approach.4.Never flush your medications down the toilet. IF YOU HAVE BEEN PRESCRIBED AN OPIOID FOR PAIN If you have been prescribed an opioid (such as hydrocodone, oxycodone or morphine), it is critical to understand the possible side effects and risks of opioid pain medications. Even when taken as directed, opioids can have several side effects including: Tolerance, meaning you might need to take more of a medication for the same pain relief. Nausea, vomiting and/or constipation. Sleepiness, dizziness, dry mouth, confusion, depression or itching. Physical dependence, meaning you have withdrawal symptoms when a medication is stopped, can develop within a few days. KNOW YOUR RESPONSIBILITIES It is important to know exactly how much and how often to take the opioid pain medications you are prescribed. Never take opioids in higher amounts or more often than prescribed. Do not combine opioids with alcohol or other drugs that cause drowsiness, such as benzodiazepines, also known as benzos, including diazepam and alprazolam, muscle relaxants or sleep aids. Never sell or share prescription opioids. This is illegal. Store opioids in a secure place and out of reach of others (including children, family, friends and visitors). The last page of this document has been signed and retained as a CHART COPY. Signatures Patient Education Materials Acute Knee Pain, Adult Medication Leaflets prednisone, influenza virus vaccine, inactivated adjuvanted preservative-free quadrivalent intramuscular suspens My discharge plan and instructions have been reviewed and explained to me and I,TAM WALSH understand my current condition and have read and understand these discharge instructions. I have received a written copy of the plan/instructions. If I have questions, I am aware that I should contact my d octor. 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 He again states that he has no pain with just lying in bed. Patient was seen by Dr. Tacos Bartlett, orthopedics, yesterday who stated thatpatient is not a surgical candidate. He recommended steroids and physical therapy to get moving better. Patient to follow-up with Dr. Bartlett in the office to possibly get fitted for a knee brace. Patient denies any physical complaints this morning including fever, chills, cough, shortness of breath, chest pain, abdominal pain, nausea or dysuria. Will start a steroid taper today to continue at Pending sale to [facility]. He is medically optimized for discharge to facility today pending insurance approval. All quest ions answered. Objective Vitals and Measurements T: 36.6 C (Oral) TMIN: 36.2 C (Oral) TMAX: 36.7 C (Oral) HR: 86(Monitored) RR: 16 BP: 116/65 SpO2: 94% WT: 90.3 kg Intake and Output 7AM Yesterday to 7AM Today Intake and Output (Last 24 hours) Intake Oral Intake 480.00 Output Urine Voided 850.00 Stool Count 2.00 Urine Count 3.00 Total Summary Total Intake 480.00 Total Output 850.00 Fluid Balance -370.00 Physical Exam General: No acute distress. Patient is alert, chronically ill-appearing. Skin: No rash. Skin is warm, dry and intact. HEENT: Head is normocephalic, atraumatic. Pupils are equal, round and reactive. Neck: Supple. No lymphadenopathy, thyromegaly. Lungs: Bilaterally clear but diminished without crepitation or wheeze. Unlabored. Heart: Heart is regular rhythm, S1, S2. No murmurs, gallops or rubs. Abdomen: Abdomen is soft, nontender. Bowels sounds present in all quadrants. Extremities: No clubbing, cyanosis; edema noted around left knee. Peripheral pulses palpable. No calf tenderness. Bilateral lower extremities discolored (chronic). Ulcer noted on left foot. Neurological: Patient is awake and alert to person, place and time. Following simple commands, moving all extremities. [1] Weight Current Weight Dosing Weight: 88 kg (07/25/23) Current Weight: 90.3 kg (07/27/23) Dosing Weight: 88 kg (07/25/23) Medications Medications (15) Active Scheduled: (7) aspirin 325 mg tablet 325 mg 1 tab(s), Oral, Daily ciprofloxacin 500 mg Tablet 750 mg 1.5 tab(s), Oral, q12h heparin 5,000 units/mL (1 mL) vial 5,000 unit(s) 1 mL, Subcutaneous, q12h levothyroxine 50 mcg tablet 25 mcg 0.5 tab(s), Oral, qDay pantoprazole 20 mg EC tablet 40 mg 2 tab(s), Oral, qDay predniSONE 20 mg tablet 60 mg 3 tab(s), Oral, qDay triamterene-hctz 37.5 mg-25 mg (Dyazide) 1 cap(s), Oral, qDayM Continuous: (0) PRN: (8) acetaminophen 325 mg Tablet 650 mg 2 tab(s), Oral, q4h acetaminophen 325 mg Tablet 650 mg 2 tab(s), Oral, q4h acetaminophen-HYDROcodone 325-5 mg tablet 1 tab(s), Oral, q4h benzonatate 100 mg Capsule 100 mg 1 cap(s), Oral, TID calcium carbonate 500 mg Chewable 500 mg 1 tab(s), Chewed, TID guaifenesin 100 mg/5 mL Liquid SUGAR-FREE 120 mL 200 mg 10 mL, Oral, q4h melatonin 3 mg tablet 6 mg 2 tab(s), Oral, qHS ondansetron 2 mg/ 1 mL 2 mL INJ 4 mg 2 mL, IV Push, q4h Lab Results 07/26 05:11 WBC: 6.2 Hgb: 12.1 L Hct: 35.8 L Platelet: 279 Neutrophil %: 50.3 Glucose Level: 96 Sodium Level: 138 Potassium Level: 4.2 BUN: 16 Creatinine Lvl (s): 0.69 L Imaging Results and Diagnostics .radimp MRI Knee w/o Contrast Left Result Date: July 26, 2023 Verified By: KAROL QUINTANILLA, ANGUS Galvez CLINICAL STATEMENT: IMPRESSION: Prominent edema involving the tibial spines and lateral plateau of the tibia without a definite fracture line. There may be a subchondral cyst in this region. With further concern, CT maybe obtained Complex degenerative tearing involving the anterior horn and body of the lateral meniscus Prominent degenerative signal in the anterior cruciate ligament Multifocal cartilage loss is mostsevere in the patellofemoral compartment Moderate joint effusion Edema in the popliteus muscle could relate to a strain Tendinosis of the patellar tendon. Nonspecific subchondral edema noted in the anterior patella Small Jean-Baptiste's cyst XR Knee 1 or 2 Views Left Result Date: July 25, 2023 Verified By: YARA ACOSTA MD CLINICAL STATEMENT: IMPRESSION: No acute finding seen. EKG No qualifying data available. Assessment/Plan 1. Knee pain-swelling Acute, new onset last Wednesday without any known injury. Described pain as sharp/burning and excruciating when bearing weight. Patient typically uses a walker to ambulate at home but unable to bear weight on left knee. X-ray of left knee shows nothing acute, possible effusion. Consult placed to orthopedics for recommendation. Dr. Huy Small recommended an MRI of the left knee to better evaluate it - shows lateral degenerative tearing of meniscus. Patient seen by Dr. Bartlett who stated patient is not a good surgical candidate. Recommending conservative management. Consult placed to PT and OT to evaluate and treat - recommending SNF. social human services assistants following for discharge planning needs. C ontinue [place] 1 tab PO q6 hours PRN for pain. ESR and CRP only mildly elevated. 2. HTN (hypertension) Chronic, controlled. Continue current home antihypertensives. SBP goal of 140 or less. 3. Hypothyroidism Chronic. Continue Levothyroxine at current. 4. Chronic polyneuropathy Chronic. Continue current home medications. chronic left foot ulcer - cleanse wound with soap and water, pat dry and pain with betadine daily. Guaze pads between toes and wrap with compression wraps. Patient is medically optimized for discharge to SNF today pending insurance approval. DVT prophylaxis with heparin sc. Code status: Full Code. Labs, diagnostic test and progress notes reviewed as noted in HPI. Plan of care discussed with patient. All questions answered. Patient verbalizes understanding and is agreeable with plan of care. This case was discussed with collaborating physician, Dr. Joey Melton. Time Spent 35 minutes spent reviewing past diagnostic tests, reviewing lab results, vital sign trends, medicalhistory, reviewing medications and ordering home medications, examining patient, discussed plan of care with nursing, social media manager and therapy, collaborating with physician, and documenting in chart. [1] Discharge Summary with PE; SABRINA NIXON 07/27/2023 09:39 EST Digitally Signed by SABRINA NIXON on 07/27/2023 04:01 PM [facility]12-05-2023 Hospital Discharge instructions Patient Education 07/27/2023 09:18:05 Acute Knee Pain, Adult Acute Knee Pain, Adult Acute knee pain is sudden and may be caused by damage, swelling, or irritation of the muscles and tissues that support your knee. The injury may result from: A fall. An injury to your knee from twisting motions. A hit to the knee. Infection. Acute knee pain may go away on its own with time and rest. If it does not, your health care provider may order tests to find the cause of the pain. These may include: Imaging tests, such as an X-ray, MRI, or ultrasound. Joint aspiration. In this test, fluid is removed from the knee. Arthroscopy. In this test, a lighted tube is inserted into the knee and an image is projected onto a TV screen. Biopsy. In this test, a sample of tissue is removed from the body and studied under a microscope. Follow these instructions at home: Pay attention to any changes in your symptoms. Take these actions to relieve your pain. If you have a knee sleeve or brace: Wear the sleeve or brace as told by your health care provider. Remove it only as told by your health care provider. Loosen the sleeve or brace if your toes tingle, become numb, or turn cold and blue. Keep the sleeve or brace clean. If the sleeve or brace is not waterproof: ?Do not let it get wet. ?Cover it with a watertight covering when you take a bath or shower. Activity Rest your knee. Do not do things that cause pain or make pain worse. Avoid high-impact activities or exercises, such as running, jumping rope, or doing jumping jacks. Work with a physical therapist to make a safe exercise program, as recommended by your health care provider. Do exercises as told by your physical therapist. Managing pain, stiffness, and swelling If directed, put ice on the knee: ?Put ice in a plastic bag. ?Place a towel between your skin and the bag. ?Leave the ice on for 20 minutes, 2 3 times a day. If directed, use an elastic bandage to put pressure (compression) on your injured knee. This may control swelling, give support, and help with discomfort. General instructions Take jjub-gls-bqfwyjy and prescription medicines only as told by your health care provider. Raise (elevate) your knee above the level of your heart when you are sitting or lying down. Sleep with a pillow under your knee. Do not use any products that contain nicotine or tobacco, such as cigarettes, e- cigarettes, and chewing tobacco. These can delay healing. If you need help quitting, ask your health care provider. If you are overweight, work with your health care provider and a dietitian to set a weight-loss goal that is healthy and reasonable for you. Extra weight can put pressure on your knee. Keep all follow-up visits as told by your health care provider. This is important. Contact a health care provider if: Your knee pain continues, changes, or gets worse. You have a fever along with knee pain. Your knee feels warm to the touch. Your knee luana or locks up. Get help right away if: Your knee swells, and the swelling becomes worse. You cannot move your knee. You have severe pain in your knee. Summary Acute knee pain can be caused by a fall, an injury, an infection, or damage, swelling, or irritation of the tissues that support your knee. Your health care provider may perform tests to find out the cause of the pain. Pay attention to any changes in your symptoms. Relieve your pain with rest, medicines, light activity, and use of ice. Get help if your pain continues or becomes worse, your knee swells, or you cannot move your knee. This information is not intended to replace advice given to you by your health care provider. Make sure you discuss any questions you have with your health care provider. Document Released: 06/05/2008 Document Revised: 01/19/2019 Document Reviewed: 01/19/2019 [employer] Patient Education 2020 [employer]. Follow Up Care 07/25/2023 12:07:45 With:TACOS BARTLETT MD Address: [address] [place] [phone] When:08/06/2023 10:00:00 Comments:This is your post-hospital orthopedic appointment to be fit for a brace. It is in the [facility] office. [facility] 12-04-2023 Note ORIGINAL EXAMINATION: MRI OF THE LEFT KNEE WITHOUT CONTRAST 07/26/2023 10:24 am TECHNIQUE: Multiplanar multisequence MRI of the left knee was performed without the administration of intravenous contrast. COMPARISON: None. HISTORY: ORDERING SYSTEM PROVIDED HISTORY: Reason for Exam: left knee pain . Swelling. No reported trauma FINDINGS: Increased signal noted in the anterior cruciate ligament. The posterior cruciate ligament is grossly unremarkable. The medial collateral ligament, lateral collateral ligament and iliotibial band are intact. Mild thinning of the lateral tibiofemoral cartilage noted. Complex tearing is seen of the anterior horn and body of the lateral meniscus. Discoid configuration noted of the medial meniscus. Moderate attenuation of the medial tibiofemoral cartilage. No medial meniscus tear. Increased signal noted of the patellar tendon. The quadriceps tendon is normal. Fluid signal noted in the anterior patella. Moderate to high-grade patellofemoral cartilage loss seen. There is lateral tilt of the patella. A moderate joint effusion seen. A small Jean-Baptiste's cyst is identified. Edema seen in the popliteus muscle. Popliteus tendon, pes anserine tendons and conjoined tendon are intact. Prominent subchondral edema is noted near the tibial spines and lateral plateau of the tibia. No visible fracture lines seen. Mild edema noted near the anterior aspect of the medial femoral condyle/trochlea IMPRESSION: Prominent edema involving the tibial spines and lateral plateau of the tibia without a definite fracture line. There may be a subchondral cyst in this region. With further concern, CT may be obtained Complex degenerative tearing involving the anterior horn and body of the lateral meniscus Prominent degenerative signal in the anterior cruciate ligament Multifocal cartilage loss is most severe in the patellofemoral compartment Moderate joint effusion Edema in the popliteus muscle could relate to a strain Tendinosis of the patellar tendon. Nonspecific subchondral edema noted in the anterior patella Small Jean-Baptiste's cyst Interpreted by: Angus Luis MD Preliminary Report By: Angus Luis MD Electronically signed By Angus Luis MD Dictated Date: 07/26/2023 12:30:25 PM Prelim Date: 07/26/2023 12:44:43 PM Sign Date: 07/26/2023 12:44:43 PM Ordering Provider: SABRINA [facility] [id number] Note Date of Service 07/26/2023 Chief Complaint left knee pain Subjective Patient seen and evaluated this morning while resting in bed. He states that he is doing well this morning and reiterates that he only has pain with bearing weight. Patient updated that this providerspoke with Dr. Huy Small, orthopedics, today and he recommended an MRI of the left knee to get a better look at it. He is in surgery all day so will be unable to come over to see patient until later afternoon. We will have PT and OT see patient this morning and get their recommendation. Patientappears to have edema of the left knee. Patient denies any fever, chills, cough, shortness of breath, chest pain, abdominal pain, nausea or dysuria. All questions answered. PT and OT both recommended a SNF as patient would not bear weight on left leg. social human services assistants working on discharge plan. Objective Vitals and Measurements T: 36.6 C (Oral) TMIN: 36.6 C (Oral) TMAX: 37 C (Oral) HR: 73(Monitored) RR: 18 BP: 125/70 SpO2: 96% HT: 180.3 cm WT: 88.0 kg BMI: 27.07 Intake and Output 7AM Yesterday to 7AM Today Intake and Output (Last 24 hours) Intake Oral Intake 240.00 Output Urine Voided 495.00 Total Summary Total Intake 240.00 Total Output 495.00 Physical Exam General: No acute distress. Patient is alert, chronically ill-appearing. Skin: No rash. Skin is warm, dry and intact. HEENT: Head is normocephalic, atraumatic. Pupils are equal, round and reactive. Neck: Supple. No lymphadenopathy, thyromegaly. Lungs: Bilaterally clear but diminished without crepitation or wheeze. Unlabored. Heart: Heart is regular rhythm, S1, S2. No murmurs, gallops or rubs. Abdomen: Abdomen is soft, nontender. Bowels sounds present in all quadrants. Extremities: No clubbing, cyanosis, or edema. Peripheral pulses palpable. No calf tenderness. Edemanoted of left knee without any erythema. Wound noted between toes on left foot. Discoloration notedto left lower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 Debridement Subcutaneous Subcutaneous -Tissue Removed Subcutaneous Subcutaneous -Post Debridement (cm) - Length 2.2 1.8 -Post Debridement (cm) - Width 1.5 1.7 -Post Debridement (cm) - Depth 0.1 0.1 -Total Square (Post) (cm) 3.30 3.06 -Area of Debridement (cm) - Length 2.2 1.8 -Area of Debridement (cm) - Width 1.5 1.7 -Total Square (Area) (cm) 3.30 3.06 -Tunneling No No -Undermining/Tunneling No No -Circular Undermining No No -Wound/Ulcer Outcome Not Healed Not Healed -Ulcer Cleansing Rinsed/ Rinsed/ Irrigated with Irrigated with Saline Saline -Foul Odor after Cleansing No No -Bioengineered Tissue No No -Bleeding Controlled with Pressure Pressure -Treatment Response Procedure Procedure Tolerated Well Tolerated Well -Offloading No -Debridement - Subq, 1st 20sq cm No No #4 Hallux med -Time 09:15 10:00 -Correct Patient Yes Yes -Correct Side, Site, Position Yes Yes -Correct Procedure Yes Yes -Procedure Performed Yes Yes -Type of Procedure Debridement Debridement -Clinical Debridement Subcutaneous Subcutaneous -Tissue Removed Subcutaneous Subcutaneous -Post Debridement (cm) - Length 1.5 2.5 -Post Debridement (cm) - Width 1.4 1.4 -Post Debridement (cm) - Depth 0.1 0.1 -Total Square (Post) (cm) 2.10 3.50 -Area of Debridement (cm) - Length 1.5 2.5 -Area of Debridement (cm) - Width 1.4 1.4 -Total Square (Area) (cm) 2.10 3.50 -Tunneling No No -Undermining/Tunneling No No -Circular Undermining No No -Wound/Ulcer Outcome Not Healed Not Healed -Ulcer Cleansing Rinsed/ Rinsed/ Irrigated with Irrigated with Saline Saline -Foul Odor after Cleansing No No -Bioengineered Tissue No No -Bleeding Controlled with Pressure Pressure -Treatment Response Procedure Procedure Tolerated Well Tolerated Well -Offloading No -Debridement - Subq, 1st 20sq cm Yes Yes Pain Scale: 0-10 Numeric Is Patient Pain Free? Yes Yes - Nurse 3 - General Ulcer D/C NN Start: 07/14/23 09:15 Freq: Status: Active Protocol: Activity Type Activity Date Activity User E-sign Co-sign Detail Recorded Client Recorded Date Recorded By Document 07/14/23 09:52 Desktop 07/14/23 09:53 07/14/23 09:52 Wound Care Center Nurse 3 #5 2nd toe -Ulcer Cleansing Not Cleansed -Foul Odor after Cleansing No -Primary Dressing Covered/Secured with Dry Gauze & Roll Gauze, Secured with Tape #4 Hallux med -Ulcer Cleansing Not Cleansed -Foul Odor after Cleansing No -Primary Dressing Covered/Secured with Dry Gauze & Roll Gauze, Secured with Tape Pain Scale: 0-10 Numeric Is Patient Pain Free? Yes Teaching: Wound Center Dressing Your Wound -Person Taught Patient,Family -Teaching Method Discussion, Demonstration -Response to teaching Verbalize understanding WC - Visit Discharge Discharge Condition Stable Ambulatory Status Wheelchair Transportation Private Auto Medication Reconcilliation completed & Yes provided to patient/care provider Clinical Summary of Care Provided Yes Assessment/Plan Assessment/Plan (1) Non-pressure chronic ulcer of other part of left foot with fat layer exposed: CODE(S): L97.522 - Non-pressure chronic ulcer of other part of left foot with fat layer exposed PLAN: Patient was examined evaluated. All findings were discussed with the patient. All questions were answered to the patient's satisfaction Excisional debridement down to and including subcutaneous tissue with a number 5mm dermal curette to the left hallux. Predebridement measurement is 2.3 x 1.3 x0.1 cm. Postdebridement measurement is 2.5 x 1.4 x 0.1 cm. Excision debridement down to and including subcutaneous tissue with a number 5 mm dermal curette to the left second digit. Predebridement measurement is 1.7 x1.6 x 0.1 cm. Postdebridement measurement is 1.8 x 1.7 x 0.1 cm. Betadine paint was applied to all web spaces to the left foot followed by Betadine soaked gauze to the first and second digit of the left foot. Followed by 4 x 4's and dry sterile dressing and compression wrap. Patient was instructed to change his dressing daily. He was understanding of this. Patient will follow-up in 2 weeks. Patient will be placed on ciprofloxacin due to his bacterial growth based on themicrobiology ensitivity and culture results. Patient is grateful for his care. (2) Tinea pedis: CODE(S): B35.3 - Tinea pedis QUALIFIERS: Laterality: left Qualified Code(s): B35.3 - Tinea pedis (3) Edema of left lower extremity due to peripheral venous insufficiency: CODE(S): I87.2 - Venous insufficiency (chronic) (peripheral) (4) Cellulitis of left foot: CODE(S): L03.116 - Cellulitis of left lower limb 07/21/23 1018 <Electronically signed by Rena Calixto DPM> Cosigner Signature (if applicable): CC: ~ Signed [facility] Work Phone: 1(232) 233-563111-22-2023 History and physical note Author Rena Calixto [facility] July 14, 2023 10:09am Note Date/Time July 14, 2023 10:09am [facility] [address] [place] [address] H&P Exam - Wound Care 07/14/23 1003 MR#: [id number] Acct: [id number] Name: TAM WALSH Rep #:[id number] : 1950 72 From: Rena Horn PM PCP: Dr. Samson Clement, DO Status:R EG RCR Location: History of Present Illness Date of Service: 07/14/23 Chief Complaint: Non healing right leg ulcer History of Wound: Patient is 71 year old male who has had a non healing wound onhis right anterior leg. He has had this ulcer for approximately 9 months. He has been cleaning it daily with hydrogen peroxide and then placing antibiotic ointment. He has issues with bilateral lower extremity edema. He states he wears compression socks and an KRISTEN wrap to help his chronic edema. He does sleepin a recliner. He has a history of spinal stenosis with surgeries 12/05, 10/08, and 02/09 and hypothyroidism and polyneuropathy from the back pain, and also has lower extremity leg weakness from his back pain. Obtained a wound culture on 03/26/22 which was positive for Staphylococcus aureus and he was treated Doxycycline. Venous studies obtained 05/13/22 which showed Chronic deep vein thrombosis is noted in the right tibio-peroneal trunk. Chronic superficial vein thrombosis is noted in the left greater saphenous vein. The right greater saphenous vein demonstrates valvular incompetence below the knee. The right accessory saphenousvein demonstrates valvular incompetence. The left saphenofemoral junction, greater saphenous vein, and accessory saphenous vein demonstrate valvular incompetence. Arterial studies obtained on 05/13/22 show Right SINDY 1.48 and Left SINDY 1.46 with Dopppler/PVR waveforms normal at rest bilaterally. He saw Dr. Pang on 05/28/22 and he states that the patient's wounds are improving with compression, he will hold further imaging/intervention unless wounds regress or recur and the patient is to follow up with him in 2 months or sooner if things worsen. Wound care - Collagen hydrogel covered with Hessmer SAP. Wear compression stockings with and KRISTEN wrap over the the right compression stocking. Today he denies fever, chills, nausea and vomiting. He states he has a good appetite. Progress of Wound: Mr. Walsh is a 47-year-old male following up to clinic for second opinion to left digital ulcerations and maceration. Patient was seen by outside vascular surgery who has placed the patient on antifungal cream as well as oral antibiotics. Patient seems to have reaction to either the antibiotic, fungal cream or both. He has stopped all medications at this time. He has a well history of peripheral arterial as well as vascular disease. His wounds are appreciated to the first and second digit and unsure how that happened. He alsocomplains of interdigital maceration that was treated with antifungal without improvement. He denies trauma. He does not ambulate well. He denies constitutional symptoms. No other pedal complaints at this time. [facility] Medical History Back pain with history of spinal surgery Edema of both lower extremities Hypothyroidism Polyneuropathy Spinal stenosis Home Medications aspirin 325 mg tablet,delayed release 325 mg PO DAILY 05/28/22 [History Last Taken 04/14/23] levothyroxine 25 mcg tablet 25 mcg PO DAILY 05/28/22 [History Last Taken Unknown] bpkulreplfzk-vijozxxu-lgqrrd tablet 1 tab PO DAILY 05/28/22 [History Last Taken Unknown] pantoprazole 40 mg tablet,delayed release 40 mg PO DAILY 05/28/22 [History Last Taken Unknown] triamterene 37.5 mg-hydrochlorothiazide 25 mg tablet 1 tab PO DAILY 05/28/22 [History Last Taken Unknown] vitamin B complex 1 tab PO DAILY 05/28/22 [History Last Taken Unknown] pravastatin 10 mg tablet mg PO DAILY gerd 04/14/23 [History Last Taken Unknown] clotrimazole 1 % topical cream 1 applic topical BID #45 grams 06/30/23 [Rx Last Taken Unknown] doxycycline hyclate 100 mg capsule 100 mg PO BID 14 days #28 caps 07/08/23 [Rx Last Taken Unknown] Lactobacillus acidophilus-Bifidobac.animalis 2.5 billion cell capsule (Daily Probiotic) cap PO DAILY 07/14/23 [History Last Taken Unknown] Allergy/AdvReac Type Severity Reaction Status Date / Time No Known Allergies Allergy Verified 07/14/23 09:58 Surgical History H/O lumbosacral spine surgery (~11/2014) Social History Smoking Status: Never smoker Vital Signs Vital Signs Vital Signs: 07/14/23 09:19 Temperature 97.6 F L Temperature Source Temporal Pulse Rate 93 Respiratory Rate 18 Blood Pressure 118/76 Blood Pressure Mean 90 Weight Weight: 95.708 kg Body Mass Index (BMI) 29.4 Physical Exam Narrative Vascular: DP and PT pulses are palpable. CFT is brisk. Blanchable erythema appreciated to the dorsal aspect of the right foot. Nonpitting edema appreciated to the left lower extremity. Skin temperature gradient warm to warmfrom proximal ankle to distal digit. Neurological: Light touch intact. Patient responds to painful stimuli. Dermatological: Full-thickness ulceration appreciated to the hallux measuring 2.2 x 1.5 x 0.1 cm. Wound base is fibrogranular nature. No drainage. Full-thickness ulceration appreciated to the second digit to the left foot measuring 1.5 x 1.4 x 0.1 cm. Wound base is fibrogranular nature. No drainage. Both wounds show no evidence of probe to bone or sign of infection at this time. Evidence of interdigital maceration in all 4 webspaces of the left foot. Malodor is appreciated to the interspaces. Excisional debridement down to and including subcutaneous tissue with a number 5mm dermal curette to the left hallux. Predebridement measurement is 2.1 x 1.4 x0.1 cm. Postdebridement measurement is 2.2 x 1.5 x 0.1 cm. Excision debridement down to and including subcutaneous tissue with a number 5 mm dermal curette to the left second digit. Predebridement measurement is 1.4 x1.3 x 0.1 cm. Postdebridement measurement is 1.5 x 1.4 x 0.1 cm. Musculoskeletal: Moderate palpatory tenderness appreciated to the hallux and second digit full-thickness ulceration. No pain with calf compression. Debridement Note Debridement Note Debridement Free Text: Excisional debridement down to and including subcutaneoustissue with a number 5 mm dermal curette to the left hallux. Predebridement measurement is 2.1 x 1.4 x 0.1 cm. Postdebridement measurement is 2.2 x 1.5 x 0.1 cm. Excision debridement down to and including subcutaneous tissue with a number 5 mm dermal curette to the left second digit. Predebridement measurement is 1.4 x1.3 x 0.1 cm. Postdebridement measurement is 1.5 x 1.4 x 0.1 cm. Post-Debridement Measurements and Additional Note: Post-Debridement Measurements/Treatment - Nurse 1 - General Ulcer Assessment Start: 07/14/23 09:15 Freq: Status: Active Protocol: GREGORY Activity Type Activity Date Activity User E-sign Co-sign Detail Recorded Client Recorded Date Recorded By Document 07/14/23 09:19 PL Tablet 07/14/23 09:32 PL 07/14/23 09:19 WC - Today's Visit Information Type of service Initial Visit Arrival Mode Wheelchair Transfer Assistance None Patient Identification Verified (Name & Yes ) Patient Requires Transmission-Based No Precautions Safety Precautions NA Height and Weight Height 5 ft 11 in Weight 95.708 kg Weight in Pounds 211.0 lbs Weight Measurement Method Estimated by Patient Body Mass Index (BMI) 29.4 BMI Classification Overweight BSA - Keke 2.16 Vital Signs Temperature (97.8 F-99.1 F) 97.6 F L Temperature Source Temporal Pulse Rate (60-100) 93 Respiratory Rate (12-18) 18 Blood Pressure (90/60-120/80) 118/76 Blood Pressure Mean 90 History Since Last Visit- (Skip if this is Patient's initial visit) Have you changed medications since your No last visit? Any new allergies or adverse reactions No Had a fall/change in ADL's that may No increase risk of falls Signs or symptoms of abuse and/or No neglect since last visit Have you been in the hospital since your No last visit? Pain Scale: 0-10 Numeric Is Patient Pain Free? Yes - Nurse 1 - General Ulcer Measurement Start: 07/14/23 09:15 Freq: Status: Active Protocol: Activity Type Activity Date Activity User E-sign Co-sign Detail Recorded Client Recorded Date Recorded By Document 07/14/23 09:19 PL Tablet 07/14/23 09:32 PL 07/14/23 09:19 Wound Center Nurse 1 #5 1st left toe -Current Size (cm) - Length 2.0 -Current Size (cm) - Width 1.0 -Current Size (cm) - Depth 0.1 -Total Square Cm 2.00 #4 Hallux med -Current Size (cm) - Length 2.5 -Current Size (cm) - Width 2.5 -Current Size (cm) - Depth 0.1 -Total Square Cm 6.25 - Nurse 3 - General Ulcer D/C NN Start: 07/14/23 09:15 Freq: Status: Active Protocol: Activity Type Activity Date Activity User E-sign Co-sign Detail Recorded Client Recorded Date Recorded By Document 07/14/23 09:52 Desktop 07/14/23 09:53 07/14/23 09:52 Wound Care Center Nurse 3 #5 1st left toe -Ulcer Cleansing Not Cleansed -Foul Odor after Cleansing No -Primary Dressing Covered/Secured with Dry Gauze & Roll Gauze, Secured with Tape #4 Hallux med -Ulcer Cleansing Not Cleansed -Foul Odor after Cleansing No -Primary Dressing Covered/Secured with Dry Gauze & Roll Gauze, Secured with Tape Pain Scale: 0-10 Numeric Is Patient Pain Free? Yes Teaching: Wound Center Dressing Your Wound -Person Taught Patient,Family -Teaching Method Discussion, Demonstration -Response to teaching Verbalize understanding WC - Visit Discharge Discharge Condition Stable Ambulatory Status Wheelchair Transportation Private Auto Medication Reconcilliation completed & Yes provided to patient/care provider Clinical Summary of Care Provided Yes Assessment/Plan Assessment/Plan (1) Non-pressure chronic ulcer of other part of left foot with fat layer exposed: CODE(S): L97.522 - Non-pressure chronic ulcer of other part of left foot with fat layer exposed PLAN: Patient was examined evaluated. All findings were discussed with the patient. All questions were answered to the patient's satisfaction Excisional debridement down to and including subcutaneous tissue with a number 5mm dermal curette to the left hallux. Predebridement measurement is 2.1 x 1.4 x0.1 cm. Postdebridement measurement is 2.2 x 1.5 x 0.1 cm. Excision debridement down to and including subcutaneous tissue with a number 5 mm dermal curette to the left second digit. Predebridement measurement is 1.4 x1.3 x 0.1 cm. Postdebridement measurement is 1.5 x 1.4 x 0.1 cm. Educated the patient to stop his antifungal cream as well as antibiotic. A culture was taken from the ulcerations and we will give her antibiotics based onmicrobiology culture and sensitivity. The left foot and ulcerations were dressed with a Betadine paint and gauze placed in between all interspaces. Followed by dry sterile dressing. Patient is to change dressing daily. He will follow-up in 1 week for evaluation. He left the office pleased with the visit. (2) Tinea pedis: CODE(S): B35.3 - Tinea pedis QUALIFIERS: Laterality: left Qualified Code(s): B35.3 - Tinea pedis (3) Edema of left lower extremity due to peripheral venous insufficiency: CODE(S): I87.2 - Venous insufficiency (chronic) (peripheral) PLAN: Patient is continue to wear his compression wraps. Educated the patient continue to rest and elevate his by the lower extremity to help decrease leg swelling. He was understanding of this. 07/14/23 1009 <Electronically signed by Rena Calixto DPM> Cosigner Signature (if applicable): CC: ~ Signed [facility] Work Phone: 1(150) 428-953409-23-2023 Hospital Discharge instructions Patient Education 05/15/2023 15:09:22 Laceration, Scalp: Sutures or [place] Scalp Laceration: Sutures or Tatiana A laceration is a cut through the skin. A scalp laceration may require stitches (sutures) or tatiana. There are a lot of blood vessels in the scalp. Because of this, significant bleeding is common with scalp cuts. Home care The following guidelines will help you care for your laceration at home: During the first 2 days you may carefully rinse your hair in the shower to remove blood and glass or dirt particles. After 2 days you may shower and shampoo your hair normally. Have someone help you clean your wound every day: oIn the shower, wash the area with soap and water. Use a wet cotton swab to loosen and remove any blood or crust that forms. oAfter cleaning, keep the wound clean and dry. Talk with your doctor about applying antibiotic ointment to the wound. Apply a fresh bandage. Don't put your head underwater until the stitches or tatiana have been removed. This means no swimming. Your doctor may prescribe an antibiotic cream or ointment to prevent infection. Do not stop taking this medication until you have finished the prescribed course or your doctor tells you to stop. Your doctor may prescribe medications for pain. If no pain medicines were prescribed, you can use [id number] pain medicines. Follow instructions for taking these medications. Talk with your doctor before using these medicines if you have chronic liver or kidney disease. Also talk with your doctor if you have ever had a stomach ulcer or GI bleeding. Follow-up care Follow up with your healthcare provider, or as advised. Check the wound daily for the signs of infection listed below. Stitches or tatiana are usually removed from the scalp in about 7 to 14 days. Call 911 Call 911 if any of these occur: Bleeding can't be controlled by direct pressure When to seek medical advice Call your healthcare provider right away if any of these occur: Signs of infection, including increasing pain in the wound, redness, swelling, or pus coming from the wound Fever of 100.4 F (38 C) or higher, or as directed by your healthcare provider Stitches or tatiana come apart or fall out before your next appointment Wound edges re-open [phone] [employer]. [address] [place] [address]. All rights reserved. This information is not intended as a substitute for professional medical care. Always follow yourhealthcare professional's instructions. 05/15/2023 15:08:54 Head Injury (Adult) Head Injury (Adult) You have a head injury. It does not appear serious at this time. But symptoms of a more serious problem, such as a mild brain injury (concussion) or bruising or bleeding in the brain, may appear later. For this reason, you or someone caring for you will need to watch for the symptoms listed below. Once you re home, also be sure to follow any care instructions you re given. Home care Watch for the following symptoms Seek emergency medical care if you have any of these symptoms over the next hours to days: Headache Nausea or vomiting Dizziness Sensitivity to light or noise Unusual sleepiness or grogginess Trouble falling asleep Personality changes Vision changes Memory loss Confusion Trouble walking or clumsiness Loss of consciousness (even for a short time) Inability to be awakened Stiff neck Weakness or numbness in any part of the body Seizures General care If you were prescribed medicines for pain, use them as directed. Note: Don t take other medicines for pain without talking to your provider first. To help reduce swelling and pain, apply a cold source to the injured area for up to 20 minutes at atime. Do this as often as directed. Use a cold pack or bag of ice wrapped in a thin towel. Never apply a cold source directly to the skin. If you have cuts or scrapes as a result of your head injury, care for them as directed. For the next 24 hours (or longer, if instructed): oDon t drink alcohol or use sedatives or other medicines that make you sleepy. oDon t drive or operate machinery. oDon t do anything strenuous, such as heavy lifting or straining. oLimit tasks that require concentration. This includes reading, using a smartphone or computer, watching TV, and playing video games. oDon t return to sports or other activities that could result in another head injury. Follow-up care Follow up with your healthcare provider, or as directed. If imaging tests were done, they will be reviewed by a doctor. You will be told the results and any new findings that may affect your care. When to seek medical advice Call your healthcare provider right away if any of these occur: Pain doesn t get better or worsens New or increased swelling or bruising Fever of 100.4 F (38 C) or higher, or as directed by your provider Increased redness, warmth, drainage, or bleeding from the injured area Fluid drainage or bleeding from the nose or ears Any depression or bony abnormality in the injured area Persistent confusion or lethargy Bruising behind the ears or bruising around the eyes [phone] [employer]. [address] [place] [address], [place] [address]. All rights reserved. This information is not intended as a substitute for professional medical care. Always follow yourhealthcare professional's instructions. Follow Up Care 05/15/2023 12:55:48 With:RENÉE CLEMENT DO Address: [address] [place] [address] [address] [facility] [place] [address] [phone] When:2-4 days [facility] 09-23-2023 Emergency department Discharge summary Discharge Instructions Thank you for allowing [facility] to assist you with your healthcare needs. The following is importantdischarge information regarding your hospital visit. Diagnosis from Today's Visit Fall What to Do Next Instructions from Your Care Team No qualifying data available. Post Acute Orders No qualifying data available. You Need to Schedule the Following Appointments Follow Up with RENÉE CLEMENT DO When Within 2-4 days Where: [address] [facility] [address] [facility] [place] [address] [phone] Allergies NKA Medications Please ask your primary doctor or pharmacist before taking any other medication not listed, including over the counter drugs, herbal medications, vitamins and or supplements as they may interact withyour home medications. What How Much When Instructions Last Dose Unchanged aspirin (aspirin 325 mg oral tablet) 1 tab(s) by mouth Every day Unchanged hydrochlorothiazide-triamterene (hydrochlorothiazide-triamterene 25 mg-37.5 mg oral tablet) 1 tab(s) by mouth Once a day Unchanged levothyroxine (levothyroxine 25 mcg (0.025 mg) oral tablet) 1 tab(s) by mouth Once a day Unchanged multivitamin (Multiple Vitamins oral tablet) 1 tab(s) by mouth Every day Unchanged multivitamin (Vitamin B Complex oral capsule) 1 cap by mouth Every day Unchanged pantoprazole (Protonix 40 mg oral enteric coated tablet) 1 tab(s) by mouth Once a day Please take this list to your next doctor s visit. Bring all medications you take, including over the counter medications, herbals and other supplements with you to your doctor s visit. Patients and families are reminded to discard old lists and to update any records with all medication providers or retail pharmacies. Education Materials Scalp Laceration: Sutures or Tatiana A laceration is a cut through the skin. A scalp laceration may require stitches (sutures) or tatiana. There are a lot of blood vessels in the scalp. Because of this, significant bleeding is common with scalp cuts. Home care The following guidelines will help you care for your laceration at home: During the first 2 days you may carefully rinse your hair in the shower to remove blood and glass or dirt particles. After 2 days you may shower and shampoo your hair normally. Have someone help you clean your wound every day: oIn the shower, wash the area with soap and water. Use a wet cotton swab to loosen and remove any blood or crust that forms. oAfter cleaning, keep the wound clean and dry. Talk with your doctor about applying antibiotic ointment to the wound. Apply a fresh bandage. Don't put your head underwater until the stitches or tatiana have been removed. This means no swimming. Your doctor may prescribe an antibiotic cream or ointment to prevent infection. Do not stop taking this medication until you have finished the prescribed course or your doctor tells you to stop. Your doctor may prescribe medications for pain. If no pain medicines were prescribed, you can use [id number] pain medicines. Follow instructions for taking these medications. Talk with your doctor before using these medicines if you have chronic liver or kidney disease. Also talk with your doctor if you have ever had a stomach ulcer or GI bleeding. Follow-up care Follow up with your healthcare provider, or as advised. Check the wound daily for the signs of infection listed below. Stitches or tatiana are usually removed from the scalp in about 7 to 14 days. Call 911 Call 911 if any of these occur: Bleeding can't be controlled by direct pressure When to seek medical advice Call your healthcare provider right away if any of these occur: Signs of infection, including increasing pain in the wound, redness, swelling, or pus coming from the wound Fever of 100.4 F (38 C) or higher, or as directed by your healthcare provider Stitches or tatiana come apart or fall out before your next appointment Wound edges re-open [phone] [employer]. [address] [place], [place] [address]. All rights reserved. This information is not intended as a substitute for professional medical care. Always follow yourhealthcare professional's instructions. Head Injury (Adult) You have a head injury. It does not appear serious at this time. But symptoms of a more serious problem, such as a mild brain injury (concussion) or bruising or bleeding in the brain, may appear later. For this reason, you or someone caring for you will need to watch for the symptoms listed below. Once you re home, also be sure to follow any care instructions you re given. Home care Watch for the following symptoms Seek emergency medical care if you have any of these symptoms over the next hours to days: Headache Nausea or vomiting Dizziness Sensitivity to light or noise Unusual sleepiness or grogginess Trouble falling asleep Personality changes Vision changes Memory loss Confusion Trouble walking or clumsiness Loss of consciousness (even for a short time) Inability to be awakened Stiff neck Weakness or numbness in any part of the body Seizures General care If you were prescribed medicines for pain, use them as directed. Note: Don t take other medicines for pain without talking to your provider first. To help reduce swelling and pain, apply a cold source to the injured area for up to 20 minutes at atime. Do this as often as directed. Use a cold pack or bag of ice wrapped in a thin towel. Never apply a cold source directly to the skin. If you have cuts or scrapes as a result of your head injury, care for them as directed. For the next 24 hours (or longer, if instructed): oDon t drink alcohol or use sedatives or other medicines that make you sleepy. oDon t drive or operate machinery. oDon t do anything strenuous, such as heavy lifting or straining. oLimit tasks that require concentration. This includes reading, using a smartphone or computer, watching TV, and playing video games. oDon t return to sports or other activities that could result in another head injury. Follow-up care Follow up with your healthcare provider, or as directed. If imaging tests were done, they will be reviewed by a doctor. You will be told the results and any new findings that may affect your care. When to seek medical advice Call your healthcare provider right away if any of these occur: Pain doesn t get better or worsens New or increased swelling or bruising Fever of 100.4 F (38 C) or higher, or as directed by your provider Increased redness, warmth, drainage, or bleeding from the injured area Fluid drainage or bleeding from the nose or ears Any depression or bony abnormality in the injured area Persistent confusion or lethargy Bruising behind the ears or bruising around the eyes [phone] [employer]. [address] [place] [address], [place] [address]. All rights reserved. This information is not intended as a substitute for professional medical care. Always follow yourhealthcare professional's instructions. Additional Information VACCINATE! IT SAVES LIVES! Members of the community who have not yet received the COVID-19 vaccine and would like to receive it can visit one of [place] vaccine clinics. There are many vaccine clinic locations within the [facility]. For locations and available times, please visit www.gettheshot.coronavirus.[place].gov/. It is important to note that some COVID mobile vaccine clinics are held outdoors and may be canceled in rainy or stormy conditions. To learn more about pediatric vaccinations (ages 5-11), we invite you to visit the [facility] webpage. https://www.[facility].org/pages/4675-Kudlp-Nipbeoxxuhv-Onfrnlkirl-Gcbzs-Ogn stions.htmlTo learn more about the COVID-19 vaccine, we invite you to visit the CDC website for a list of frequently asked questions. https://www.cdc.gov/coronavirus/2019-ncov/vaccines/faq.html [facility] Patient Portal Access Instructions: Stay connected with your healthcare team and access your personal medical information anytime with the [facility] Patient Portal. If you would like a full copy of your medical records please contact the [facility] Medical Records Department Wednesday through Wednesday between 8a.m. and 4:30p.m. Please follow the directions below to access the portal: 1.Access the email account you provided upon registration to the [facility].2.Look for an invitation email from [facility].3.Open the email and access the invitation link: Accept Invitation to [facility]4.Fill in the required burns to create your account. Sign into www.[employer] with your username and password that you created in the above steps to stay up to date. You can then view a summary of results, a summary of your visits, and the ability to download your summaries to your computer or send the information securely to a physician. Remember that your healthcare information is confidential, so carefully consider who you will allow to register on the [facility] Patient Portal for access to your information. You can also access the [facility] Patient Portal on the [employer]. Simply click on Health Records under [employer] and then click on the [employer] logo. HOW TO SAFELY DISPOSE OF PRESCRIPTION MEDICATIONS Please use one of the following methods to safely dispose of your unused medications. 1.Use a drug disposal kit: the drug disposal pouch allows you to safely discard your old and unuseddrugs. Ask your nurse to give you one when you are discharged.2.Visit a local take-back location: Many local pharmacies and police departments have programs that collect old and unwanted prescriptiondrugs. Call your local pharmacy or go to http://[employer]/4G2Wx4j to find one close to you.3.Make use of household items: Use cat litter or old coffee grounds to dispose medications if other options arenot available. Mix your drugs with these household products, seal them in an airtight container andthrow it into the garbage. Call [facility]: [phone] to be sure your drugs can be disposed of in this way. Some medicines may require a different approach.4.Never flush your medications down the toilet. IF YOU HAVE BEEN PRESCRIBED AN OPIOIDS FOR PAIN If you have been prescribed an opioid (such as hydrocodone, oxycodone or morphine), it is critical to understand the possible side effects and risks of opioid pain medications. Even when taken as directed, opioids can have several side effects including: Tolerance, meaning you might need to take more of a medication for the same pain relief. Nausea, vomiting and/or constipation. Sleepiness, dizziness, dry mouth, confusion, depression or itching. Physical dependence, meaning you have withdrawal symptoms when a medication is stopped ? this can develop within a few days. KNOW YOUR RESPONSIBILITIES It is important to know exactly how much and how often to take the opioid pain medications you are prescribed. Never take opioids in higher amounts or more often than prescribed. Do not combine opioids with alcohol or other drugs that cause drowsiness, such as benzodiazepines, also known as benzos,including diazepam and alprazolam, muscle relaxants or sleep aids. Never sell or share prescriptionopioids. This is illegal. Store opioids in a secure place and out of reach of others (including children, family, friends and visitors). The last page(s) of this document has been signed and retained as a CHART COPY Signatures Patient Education Materials Laceration, Scalp: Sutures or Tatiana Head Injury (Adult) Medication Leaflets My discharge plan and instructions have been reviewed and explained to me and INICO MARK H understand my current condition and have read and understand these discharge instructions. I have received a written copy of the plan/instructions. If I have questions, I am aware that I should contact my d maxineor. 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 This exam was performed according to our departmental dose optimization program, and includes the following measures where applicable: automated exposure control, adjustment of the mAs and/or kVp according to patient size and/or exam, and an iterative reconstruction algorithm. FINDINGS: There are no acute fractures or dislocations. There is straightening of the upper cervical lordosis. The individual vertebral bodies are intact. The prevertebral soft tissues are unremarkable in appearance. IMPRESSION: No acute fracture. Interpreted by: Kevin Gaxiola MD Preliminary Report By: Kevin Gaxiola MD Electronically signed By Kevin Gaxiola MD Dictated Date: 05/15/2023 3:29:26 PM Prelim Date: 05/15/2023 3:30:36 PM Sign Date: 05/15/2023 3:30:36 PM [facility] ORIGINAL EXAMINATION: CT OF THE HEAD WITHOUT CONTRAST 05/15/2023 3:10 pm TECHNIQUE: CT of the head was performed without the administration of intravenous contrast. Automated exposure control, iterative reconstruction, and/or weight based adjustment of the mA/kV was utilized to reduce the radiation dose to as low as reasonably achievable. COMPARISON: 02/19/2021 HISTORY: ORDERING SYSTEM PROVIDED HISTORY: Reason for Exam: PT FELL AND STRUCK POST HEAD REGION. POST HEAD LAC/SWELLING. HX SPINAL STENOSIS. LIMITED MOBILITY ON LEGS/WEAKNESS. DENIES LOC, DENIES NEURO HX. TAKES ASPIRIN DAILY fall FINDINGS: There is no acute intracranial hemorrhage, mass, mass effect or abnormal extra-axial fluid collection. There is no CT evidence of acute infarct. The density in the larger dural venous sinuses is grossly normal. Scattered parenchymal hypodensities in the cerebral white matter are nonspecific but statistically most consistent with mild chronic microvascular angiopathy. Atherosclerotic calcifications are present in the cavernous carotid arteries bilaterally. There is proportionate enlargement of the ventricular system and cortical sulci compatible with parenchymal volume loss. Lacunar type defects in the bilateral thalamus and bilateral basal ganglia regions are similar to the prior study. The skull base and calvarium demonstrate no abnormality. The paranasal sinuses are clear. Included mastoid air cells are clear. Posterior left parietal scalp contusion/laceration seen. IMPRESSION: Scalp laceration/contusion. No intracranial hemorrhage or mass effect White matter disease is likely related to microvascular angiopathy. Numerous lacunar type infarcts are similar to the prior study Interpreted by: Angus Luis MD Preliminary Report By: Angus Luis MD Electronically signed By Angus Luis MD Dictated Date: 05/15/2023 3:12:53 PM Prelim Date: 05/15/2023 3:16:15 PM Sign Date: 05/15/2023 3:16:15 PM Ordering Provider: [facility]08-24-2023 [facility]10-12-2021 NoteHNO ID: [id number] Author: Syed Porras MD Service: ? Author Type: Physician Type: Progress Notes Filed: 06/03/2021 11:04 AM Note Text: NEUROSURGERY FOLLOW UP OFFICE NOTE Syed Porras MD Date of visit: June 03, 2021 Patient Name: Mr.Mark Billy Walsh Date of : 1950 Current Age: [age] year old Sex: male MRN/E# [id number] Last Office Visit: Visit date not found Chief Complaint: Patient presents with: Established Patient SUBJECTIVE: Mr. Walsh presents to the office today for a routine follow up visit with imaging following a lumbar re-exploration, removal of hardware (pedicle screws at L5 AND cross-link between L4/L5), L4-?S1 TLIF with PSF on 02/22/2020. He was last seen on 07/26/2020 and noted continued right lower extremity weakness. He continued home exercises and was having gradual improvement. X-rays of the lumbar spine were reviewed and were satisfactory. He was asked to follow up in 6 months for routine x-rays and follow up, prompting his visit today. Today he states overall he continues to slowly improve. He had a setback this summer in which he fell and broke his left foot AND ankle. He continues to do home exercises and is pleased with this progress. He denies low back or leg pain. He presents for evaluation and plan of care. Symptoms: bilateral lower extremity weakness PREVIOUS CONSERVATIVE TREATMENTS: Physical therapy Home exercise ? PREVIOUS SURGERY: SURGERY #3:?lumbar re-exploration, removal of hardware (pedicle screws at L5 AND cross-link between L4/L5), L4-?S1 TLIF with PSF on 02/22/2020 ? SURGERY #2:?L1-L3 laminectomy, T11-L3 fusion on 12/18/[address] Oscar Gauthier and Brenton Mccabe ? ? SURGERY #1:?L3-5 decompression fusion in?09/[address] Brenton Mccabe PAIN EVALUATION No data found in the last 1 encounters. PAST MEDICAL HISTORY Diagnosis Date - Amblyopia - Ankle fracture 01/21/2021 left - Lumbar stenosis - Pseudophakia, both eyes - Spondylosis with myelopathy, lumbar region PAST SURGICAL HISTORY Procedure Laterality Date - BACK SURGERY HX 12/17/2015 L3-5 lami, T11-L3 fusion by Drs. Oscar Gauthier and Brenton Mccabe - BACK SURGERY HX 09/2014 L3-5 decompression, fusion by Dr. Mccabe - CATARACT EXTRACTION W/ INTRAOCULAR LENS IMPLANT HX Right 08/05/2017 Dr. Morejon - CATARACT EXTRACTION W/ INTRAOCULAR LENS IMPLANT HX Left 08/12/2017 Dr. Morejon - HAND SURGERY HX Left 1974 FAMILY HISTORY Problem Relation Age of Onset - Cataract Mother - Ovarian cancer Mother - Diabetes Paternal Grandfather - other (SOFT TISSUE SARCOMA) Father ALLERGIES No Known Allergies Current Outpatient Medications Medication Sig Dispense Refill - pravastatin (PRAVACHOL) 10 mg tablet - levothyroxine (SYNTHROID) 25 mcg tablet - triamterene-hydroCHLOROthiazide (MAXZIDE-25) 37.5-25 mg per tablet Take 1 tablet by mouth once daily. - aspirin 325 mg cap Take 1 capsule by mouth once daily. - acetaminophen (TYLENOL EXTRA STRENGTH) 500 mg tablet Take 500 mg by mouth every 8 hours as needed. - ibuprofen (ADVIL) 200 mg tablet Take 200 mg by mouth every 6 hours as needed. - aspirin (ASPIR-81 ORAL) Take by mouth. - multivit-min/FA/lycopen/lutein (CENTRUM SILVER MEN ORAL) Take by mouth. - pantoprazole DR (PROTONIX) 40 mg tablet Take 40 mg by mouth once daily. - VITAMIN B COMPLEX (B-COMPLEX ORAL) Take by mouth once daily. - polyethylene glycol 3350 (MIRALAX, GLYCOLAX) 17 gram packet Take 1 Packet by mouth once daily as needed. (Patient not taking: Reported on 06/03/2021 ) - fluticasone (FLONASE ALLERGY RELIEF) 50 mcg/actuation nasal spray Use 1 Disputanta in each nostril once daily. (Patient not taking: Reported on 06/03/2021 ) - PEG 400-propylene glycol (SYSTANE ULTRA) 0.4-0.3 % ophthalmic solution Use in both eyes as needed. (Patient not taking: Reported on 06/03/2021 ) - diphenhydrAMINE (ZZZQUIL) 25 mg capsule Take 25 mg by mouth at bedtime as needed. (Patient not taking: Reported on 06/03/2021 ) No current facility-administered medications for this visit. REVIEW OF SYSTEMS Review of Systems Constitutional: Negative for chills, diaphoresis and fever. HENT: Positive for postnasal drip. Negative for congestion, ear pain and sinus pressure. Eyes: Negative for discharge and redness. Respiratory: Negative for cough, shortness of breath and wheezing. Cardiovascular: Positive for leg swelling. Negative for chest pain and palpitations. Gastrointestinal: Positive for diarrhea. Negative for constipation and nausea. Endocrine: Negative for cold intolerance and heat intolerance. Genitourinary: Negative for difficulty urinating, frequency and urgency. Musculoskeletal: Negative for back pain, gait problem and neck pain. Skin: Negative for rash and wound. Allergic/Immunologic: Negative for environmental allergies and food allergies. Neurological: Negative for dizziness, weakness and numbness (more content not included)...[facility]12-04-2020 NoteHNO ID: [id number] Author: Syed Porras Service: ? Author Type: Physician Type: Progress Notes Filed: 07/26/2020 12:05 PM Note Text: NEUROSURGERY FOLLOW UP OFFICE NOTE Syed Porras MD Date of visit: July 26, 2020 Patient Name: Mr.Mark Billy Walsh Date of : 1950 Current Age: [age] year old Sex: male MRN/E# [id number] Last Office Visit: 04/26/2020 Chief Complaint: Patient presents with: Follow Up Tests Results SUBJECTIVE: Mr. Walsh presents to the office today for a routine follow up visit with imaging following a lumbar re-exploration, removal of hardware (pedicle screws at L5 AND cross-link between L4/L5), L4-?S1 TLIF with PSF on 02/22/2020. He was last seen on 04/26/2020 by Qian Richardson CNP and noted some continued right lower extremity weakness. It was recommended that he continue to work with physical therapy and return in 3 months with xrays, prompting his visit today. Today he states symptoms are basically unchanged. He is doing home exercises with bands and has an exercise bike. Improvement is gradual. He presents for image review, evaluation and plan of care. Symptoms: low back pain, bilateral lower extremity weakness, right lateral leg pain? PREVIOUS CONSERVATIVE TREATMENTS: Physical therapy PREVIOUS SURGERY: SURGERY #3:?lumbar re-exploration, removal of hardware (pedicle screws at L5 AND cross-link between L4/L5), L4-?S1 TLIF with PSF on 02/22/2020 SURGERY #2:?L1-L3 laminectomy, T11-L3 fusion on 12/18/[address] Oscar Gauthier and Brenton Mccabe ? ? SURGERY #1:?L3-5 decompression fusion in?09/[address] Brenton Mccabe ? PAIN EVALUATION No data found in the last 1 encounters. PAST MEDICAL HISTORY Diagnosis Date - Amblyopia - Lumbar stenosis - Pseudophakia, both eyes - Spondylosis with myelopathy, lumbar region PAST SURGICAL HISTORY Procedure Laterality Date - BACK SURGERY HX 12/17/2015 L3-5 lami, T11-L3 fusion by Drs. Oscar Gauthier and Brenton Mccabe - BACK SURGERY HX 09/2014 L3-5 decompression, fusion by Dr. Mccabe - CATARACT EXTRACTION W/ INTRAOCULAR LENS IMPLANT HX Right 08/05/2017 Dr. Morejon - CATARACT EXTRACTION W/ INTRAOCULAR LENS IMPLANT HX Left 08/12/2017 Dr. Morejon - HAND SURGERY HX Left 1974 FAMILY HISTORY Problem Relation Age of Onset - Cataract Mother - Ovarian cancer Mother - Diabetes Paternal Grandfather - other (SOFT TISSUE SARCOMA) Father ALLERGIES No Known Allergies Current Outpatient Medications Medication Sig Dispense Refill - aspirin (ASPIR-81 ORAL) Take by mouth. - multivit-min/FA/lycopen/lutein (CENTRUM SILVER MEN ORAL) Take by mouth. - polyethylene glycol 3350 (MIRALAX, GLYCOLAX) 17 gram packet Take 1 Packet by mouth once daily as needed. - fluticasone (FLONASE ALLERGY RELIEF) 50 mcg/actuation nasal spray Use 1 Disputanta in each nostril once daily. - PEG 400-propylene glycol (SYSTANE ULTRA) 0.4-0.3 % ophthalmic solution Use in both eyes as needed. - pantoprazole DR (PROTONIX) 40 mg tablet Take 40 mg by mouth once daily. - diphenhydrAMINE (ZZZQUIL) 25 mg capsule Take 25 mg by mouth at bedtime as needed. - VITAMIN B COMPLEX (B-COMPLEX ORAL) Take by mouth once daily. No current facility-administered medications for this visit. REVIEW OF SYSTEMS Review of Systems Constitutional: Negative for chills, diaphoresis (Negative for night sweats.) and fever. HENT: Negative for ear discharge and rhinorrhea. Eyes: Negative for discharge. Respiratory: Negative for cough, shortness of breath and wheezing. Cardiovascular: Negative for chest pain, palpitations and leg swelling. Gastrointestinal: Negative for constipation, diarrhea, nausea and vomiting. Endocrine: Negative for cold intolerance and heat intolerance. Genitourinary: Negative for frequency. Negative for urinary incontinence and urinary retention. Musculoskeletal: Positive for back pain and gait problem. Negative for joint swelling, myalgias and neck pain. Skin: Negative for rash (Negative for hives and skin lesions.). Allergic/Immunologic: Negative for environmental allergies and food allergies. Negative for contact allergy, seasonal allergies. Neurological: Positive for weakness and numbness (Negative for numbness in extremities.). Negative for dizziness, seizures, syncope, light-headedness and headaches. Hematological: Does not bruise/bleed easily. Psychiatric/Behavioral: The patient is not nervous/anxious. Negative for depression. OBJECTIVE: Temp 97 PHYSICAL EXAM: Mental State : Alert, memory function unremarkable. Attention span and concentration normal for patient's age. Speech normal, no receptive or expressive speech deficit. Recent and remote memory normal. Orientation : Oriented to person, place and time. Higher Cortical Function : Intact speech and language. Spontaneous speech and comprehension normal. Fund of knowledge intact for pt level of education. Cranial N (more content not included)...[facility] Appointment Date:01/25/2024 01:00:00 PM Scheduled Provider:RENÉE CLEMENT DO Location:[facility] Appointment Type:PC Wellness Medicare with Labs [facility] Evaluation + Plan note Future Appointments Appointment Date:04/05/2024 11:30:00 AM Scheduled Provider:TACOS DYE MD [facility] Appointment Type:Telehealth Future Scheduled Tests Laboratory* Calcium Level Ionized 03/22/24 [facility] Evaluation + Plan note Future Appointments Appointment Date:07/25/2024 02:00:00 PM Scheduled Provider:TACOS DYE MD [facility] Appointment Type:Telehealth Future Scheduled Tests Laboratory* Testosterone,Free and Total 04/26/24 * Calcium Level Ionized 03/22/24 * C-Reactive Protein 04/26/24 * Thyroid Stimulating Hormone 04/26/24 * Free T4 04/26/24 * Complete Blood Count 04/26/24 * Sedimentation Rate Automated 04/26/24 * Complete Metabolic Panel 04/26/24 [facility] evaluation note* Diagnosis Onset Date Resolution Status Edema of both lower extremities acute Polyneuropathy acute Ulcer of right lower extremity with fat layer exposed acute [facility] Work Phone: Evaluation note* Diagnosis Onset Date Resolution Status Edema of both lower extremities acute Polyneuropathy acute Ulcer of right lower extremity with fat layer exposed acute Edema of both lower extremities acute Polyneuropathy acute Ulcer of right lower extremity with fat layer exposed acute Wound of right lower extremity acute [facility] Work Phone: evaluation note* Diagnosis Onset Date Resolution Status Edema of both lower extremities acute Polyneuropathy acute Ulcer of right lower extremity with fat layer exposed acute Edema of both lower extremities acute Polyneuropathy acute Ulcer of right lower extremity with fat layer exposed acute Wound of right lower extremity acute Venous ulcer of right leg ch ronic Edema of both lower extremities acute Polyneuropathy acute Ulcer of right lower extremity with fat layer exposed acute Wound of right lower extremity acute [facility] Work Phone: Evaluation note* Diagnosis Onset Date Resolution Status Edema of both lower extremities acute Polyneuropathy acute Ulcer of right lower extremity with fat layer exposed acute Edema of both lower extremities acute Polyneuropathy acute Ulcer of right lower extremity with fat layer exposed acute Wound of right lower extremity acute Venous ulcer of right leg ch ronic Edema of both lower extremities acute Polyneuropathy acute Ulcer of right lower extremity with fat layer exposed acute Wound of right lower extremity acute Edema of both lower extremities acute Polyneuropathy acute Ulcer of right lower extremity with fat layer exposed acute Wound of right lower extremity acute [facility] Work Phone: Evaluation note* Diagnosis Onset Date Resolution Status Edema of both lower extremities acute Polyneuropathy acute Ulcer of right lower extremity with fat layer exposed acute Wound of right lower extremity acute Venous ulcer of right leg ch ronic Edema of both lower extremities acute Polyneuropathy acute Ulcer of right lower extremity with fat layer exposed acute Wound of right lower extremity acute Edema of both lower extremities acute Polyneuropathy acute Ulcer of right lower extremity with fat layer exposed acute Wound of right lower extremity acute Venous ulcer of right leg ch ronic Edema of both lower extremities acute Polyneuropathy acute Tear of skin of multiple sites of right lower extremit y acute Ulcer of right lower extremity with fat layer exposed acute Wound of right lower extremity acute [facility] Work Phone: Evaluation note* Diagnosis Onset Date Resolution Status Edema of both lower extremities acute Polyneuropathy acute Ulcer of right lower extremity with fat layer exposed acute Wound of right lower extremity acute Venous ulcer of right leg ch ronic Edema of both lower extremities acute Polyneuropathy acute Ulcer of right lower extremity with fat layer exposed acute Wound of right lower extremity acute Edema of both lower extremities acute Polyneuropathy acute Ulcer of right lower extremity with fat layer exposed acute Wound of right lower extremity acute Venous ulcer of right leg ch ronic Edema of both lower extremities acute Polyneuropathy acute Tear of skin of multiple sites of right lower extremit y acute Ulcer of right lower extremity with fat layer exposed acute Wound of right lower extremity acute Edema of both lower extremities acute Polyneuropathy acute Tear of skin of multiple sites of right lower extremit y acute Ulcer of right lower extremity with fat layer exposed acute Wound of right lower extremity acute [facility] Work Phone: Evaluation note* Diagnosis Onset Date Resolution Status Venous ulcer of right leg ch ronic [facility] Work Phone: Evaluation note* Diagnosis Onset Date Resolution Status Venous ulcer of right leg ch ronic Venous ulcer of right leg ch ronic Edema of left lower extremit y due to peripheral venous insufficiency acute Scalp laceration noneactive Dysuria acute Edema of left lower extremit y due to peripheral venous insufficiency acute Pedal edema acute Wound of left foot acute [facility] Work Phone: Evaluation note* Diagnosis Onset Date Resolution Status Venous ulcer of right leg ch ronic Edema of left lower extremit y due to peripheral venous insufficiency acute Scalp laceration noneactive Dysuria acute Edema of left lower extremit y due to peripheral venous insufficiency acute Pedal edema acute Wound of left foot acute Edema of left lower extremit y due to peripheral venous insufficiency acute Wound of left foot acute Cellulitis of left foot acut e Edema of left lower extremit y due to peripheral venous insufficiency acute Tinea pedis acute Non-pressure chronic ulcer o f other part of left foot with fat layer exposed chronic [facility] Work Phone: Evaluation note* Diagnosis Onset Date Resolution Status Edema of left lower extremit y due to peripheral venous insufficiency acute Scalp laceration noneactive Dysuria acute Edema of left lower extremit y due to peripheral venous insufficiency acute Pedal edema acute Wound of left foot acute Edema of left lower extremit y due to peripheral venous insufficiency acute Wound of left foot acute Cellulitis of left foot acut e Edema of left lower extremit y due to peripheral venous insufficiency acute Tinea pedis acute Non-pressure chronic ulcer o f other part of left foot with fat layer exposed chronic Cellulitis of left foot acut e Venous insufficiency of left lower extremity acute Non-pressure chronic ulcer o f other part of left foot with fat layer exposed chronic [facility] Work Phone: Evaluation note* Diagnosis Weakness- Primary Other malaise and fatigue Recurrent falls Personal history of fall Cervical stenosis of spine Spinal stenosis in cervical region Hypertension, unspecified type Hyperlipidemia, unspecified hyperlipidemia type Other dysphagia Hypothyroidism, unspecified type Gastroesophageal reflux disease, unspecified whether esophagitis present Debility Debility, unspecified documented in this encounter [facility] note* Diagnosis Weakness- Primary Other malaise and fatigue Recurrent falls Personal history of fall Cervical stenosis of spine Spinal stenosis in cervical region Hypertension, unspecified type Other dysphagia Hyperlipidemia, unspecified hyperlipidemia type Hypothyroidism, unspecified type Gastroesophageal reflux disease, unspecified whether esophagitis present Debility Debility, unspecified documented in this encounter [facility] note* Diagnosis OPENED IN ERROR- Primary To allow closing an encounter opened in error (used in SmartSet) documented in this encounter [facility] course Narrative No data available for this section [facility] Discharge instructions No data available for this section [facility] Progress note No data available for this section [facility] Summary Purpose Family History No Family History Records FoundNo Family History Records FoundNo Family History Records Found No data available for this section No data available for this section No data available for this section No Family History Records Found No data available for this section No data available for this section No Family History Records FoundNo Family History Records FoundNo Family History Records Found No data available for this section No Family History Records Found Advance Directives No Advanced Directives Records Found Advance Directive Response Recorded Date/ Time Advance Directives No April 15, 2023 7:21am Living Will No April 15 7:21am Power of Clinical Staff Pharmacist No April 15, 023 7:21am Advance Directive Response Recorded Date/ Time Advance Directives No April 12:32pm Living Will No May 19, 2023 12:32pm Power of Clinical Staff Pharmacist No April 12:32pm Advance Directive Response Recorded Date/ Time Advance Directives No April 11:32am Living Will No May 19, 2023 11:32am Power of Clinical Staff Pharmacist No April 11:32am Date Activated Date Inactivated Comments 02/26/2025 3:07 PM 03/10/2025 4:16 PM Question Answer Comments Full Code Order Discussed With: Patient Chief Complaint and Reason for Visit Chief Complaint wound wound wound wound wound Reason for Visit Edema of both lower extremities Polyneuropathy Ulcer of right lower extremity with fat layer exposed Chief Complaint wound wound wound wound wound wound wound wound wound wound Reason for Visit Edema of both lower extremities Polyneuropathy Ulcer of right lower extremity with fat layer exposed Edema of both lower extremities Polyneuropathy Ulcer of right lower extremity with fat layer exposed Wound of right lower extremity Chief Complaint wound wound wound wound wound wound wound wound wound wound wound consult from wound center wound wound wound Reason for Visit Edema of both lower extremities Polyneuropathy Ulcer of right lower extremity with fat layer exposed Edema of both lower extremities Polyneuropathy Ulcer of right lower extremity with fat layer exposed Wound of right lower extremity Venous ulcer of right leg Edema of both lower extremities Polyneuropathy Ulcer of right lower extremity with fat layer exposed Wound of right lower extremity Chief Complaint wound wound wound wound wound wound wound wound wound wound wound consult from wound center wound wound wound wound wound wound Reason for Visit Edema of both lower extremities Polyneuropathy Ulcer of right lower extremity with fat layer exposed Edema of both lower extremities Polyneuropathy Ulcer of right lower extremity with fat layer exposed Wound of right lower extremity Venous ulcer of right leg Edema of both lower extremities Polyneuropathy Ulcer of right lower extremity with fat layer exposed Wound of right lower extremity Edema of both lower extremities Polyneuropathy Ulcer of right lower extremity with fat layer exposed Wound of right lower extremity Chief Complaint wound wound wound wound wound consult from wound center wound wound wound wound wound wound wound 2 M FU wound wound Reason for Visit Edema of both lower extremities Polyneuropathy Ulcer of right lower extremity with fat layer exposed Wound of right lower extremity Venous ulcer of right leg Edema of both lower extremities Polyneuropathy Ulcer of right lower extremity with fat layer exposed Wound of right lower extremity Edema of both lower extremities Polyneuropathy Ulcer of right lower extremity with fat layer exposed Wound of right lower extremity Venous ulcer of right leg Edema of both lower extremities Polyneuropathy Tear of skin of multiple sites of right lower extremity Ulcer of right lower extremity with fat layer exposed Wound of right lower extremity Chief Complaint wound wound wound wound wound consult from wound center wound wound wound wound wound wound wound 2 M FU wound wound wound wound Reason for Visit Edema of both lower extremities Polyneuropathy Ulcer of right lower extremity with fat layer exposed Wound of right lower extremity Venous ulcer of right leg Edema of both lower extremities Polyneuropathy Ulcer of right lower extremity with fat layer exposed Wound of right lower extremity Edema of both lower extremities Polyneuropathy Ulcer of right lower extremity with fat layer exposed Wound of right lower extremity Venous ulcer of right leg Edema of both lower extremities Polyneuropathy Tear of skin of multiple sites of right lower extremity Ulcer of right lower extremity with fat layer exposed Wound of right lower extremity Edema of both lower extremities Polyneuropathy Tear of skin of multiple sites of right lower extremity Ulcer of right lower extremity with fat layer exposed Wound of right lower extremity Chief Complaint LEG EDEMA/ULCERS WOR SENING Varicose veins POSSIBLE INTERVENTION Varicose veins POSSIBLE INTERVENTION Reason for Visit Venous ulcer of righ t leg Chief Complaint LEG EDEMA/ULCERS WOR SENING Varicose veins POSSIBLE INTERVENTION Varicose veins POSSIBLE INTERVENTION SUTURE REMOVAL VARICOSE VEINS/stat labs VARICOSE VEINS/stat labs Venous insufficiency (chronic) (peripheral) F/U 4 W POST-OP INT LABS Reason for Visit Venous ulcer of righ t leg Venous ulcer of right leg Edema of left lower extremity due to peripheral venous insufficiency Scalp laceration Dysuria Edema of left lower extremity due to peripheral venous insufficiency Pedal edema Wound of left foot Chief Complaint Varicose veins POSSI BLE INTERVENTION Varicose veins POSSIBLE INTERVENTION SUTURE REMOVAL VARICOSE VEINS/stat labs VARICOSE VEINS/stat labs Venous insufficiency (chronic) (peripheral) F/U 4 W POST-OP INT LABS 2 W FU wound Reason for Visit Venous ulcer of righ t leg Edema of left lower extremity due to peripheral venous insufficiency Scalp laceration Dysuria Edema of left lower extremity due to peripheral venous insufficiency Pedal edema Wound of left foot Edema of left lower extremity due to peripheral venous insufficiency Wound of left foot Cellulitis of left foot Edema of left lower extremity due to peripheral venous insufficiency Tinea pedis Non-pressure chronic ulcer of other part of left foot with fat layer exposed Chief Complaint VARICOSE VEINS/stat labs VARICOSE VEINS/stat labs Venous insufficiency (chronic) (peripheral) F/U 4 W POST-OP INT LABS 2 W FU wound wound Reason for Visit Edema of left lower extremity due to peripheral venous insufficiency Scalp laceration Dysuria Edema of left lower extremity due to peripheral venous insufficiency Pedal edema Wound of left foot Edema of left lower extremity due to peripheral venous insufficiency Wound of left foot Cellulitis of left foot Edema of left lower extremity due to peripheral venous insufficiency Tinea pedis Non-pressure chronic ulcer of other part of left foot with fat layer exposed Cellulitis of left foot Venous insufficiency of left lower extremity Non-pressure chronic ulcer of other part of left foot with fat layer exposed Additional Source Comments (unrecognized sect ion and content) No Status Records FoundNo Status Records FoundNo Status Records FoundNo Status Records FoundNo Status Records FoundNo Status Records FoundNo Status Records FoundNo Status Records Found INFORMATION SOURCE (unrecogn ized section and content) DATE CREATED AUTHOR 02/15/2018 [facility] DATE CREATED AUTHOR AUTHOR'S ORGANIZ ATION 06/05/2021 [facility] DATE CREATED AUTHOR AUTHOR'S ORGANIZ ATION 06/08/2021 [facility] DATE CREATED AUTHOR AUTHOR'S ORGANIZ ATION 04/03/2024 [facility] ([place]) DATE CREATED AUTHOR AUTHOR'S ORGANIZ ATION 03/16/2025 [facility] DATE CREATED AUTHOR AUTHOR'S ORGANIZ ATION 03/16/2025 [facility] nt DATE CREATED AUTHOR AUTHOR'S ORGANIZ ATION 03/19/2025 [facility] DATE CREATED AUTHOR AUTHOR'S ORGANIZ ATION 04/12/2025 [facility] Goals (unrecognized section and content) Goals may be documented in a n alternate sectionGoals may be documented in an alternate sectionGoals may be documented in an alternate sectionGoals may be documented in an alternate sectionGoals may be documented in an alternate sectionGoals may be documented in an alternate sectionGoals may be documented in an alternate section No data available for this sectionGoals may be documented in an alternate sectionGoals may be documented in an alternate section No data available for this sectionGoals may be documented in an alternate section No data available for this section No data available for this section No data available for this section No data available for this section Care Teams (unrecognized sec tion and content) Team Status: Active Member Role Status Dates Out of [facility] Doctor Family Provider Active Dr. Samson Clement , DO Primary Care Provider Active Team Status: Inactive Member Role Status Dates Dr. Samson Clement , DO Primary Care Provider, Refer ring Provider Active Dr. Brandt Pang MD Attending Provider Active Team Status: Active Member Role Status Dates Dr. Samson Clement , DO Primary Care Provider Active Dr. Brandt Pang MD Attending Provider, Referring Provider, Other Provider Active Team Status: Inactive Member Role Status Dates Dr. Samson Clement , DO Primary Care Provider Active Dr. Brandt Pang MD Attending Provider, Referring Pro vider Active Team Status: Inactive Member Role Status Dates Dr. Samson Clement , DO Primary Care Provider, Refer ring Provider Active JORDI Cedillo Attending Provider Active Team Status: Active Member Role Status Dates Dr. Samson Clement , Primary Care Provider Active Dr. Brandt Pang MD Attending Provider Active Team Status: Inactive Member Role Status Dates Dr. Samson Clement DO Primary Care Provider Active JORDI Cedillo Attending Provider, Referring Provid er Active Team Status: Active Member Role Status Dates Dr. Samson Clement , DO Primary Care Provider Active Dr. Brandt Pang MD Attending Provider Active JORDI Cedillo Referring Provider Active Team Status: Inactive Member Role Status Dates Dr. Samson Clement , DO Primary Care Provider Active JORDI Cedillo Referring Provider Active Dr. Rena Calixto DPM Attending Provider Active Otolaryngologist Relationship Specialty Start Date End Date Tobias Pickard MD PCP - General Family Medicine 07/01/17 Otolaryngologist Relationship Specialty Start Date End Date Tobias Pickard MD PCP - General Family Medicine 07/01/17 Otolaryngologist Relationship Specialty Start Date End Date Tacos Dye MD [address] [place] [address] PCP - General Family Medicine 02/27/25 Otolaryngologist Relationship Specialty Start Date End Date Tacos Dye MD [address] [place] [address] PCP - General Family Medicine 02/27/25 Otolaryngologist Relationship Specialty Start Date End Date Tacos Dye MD [address] [place] [address] PCP - General Family Medicine 02/27/25 Source Comments (unrecognize d section and content) In the event this informatio n is protected by the Federal Confidentiality of Alcohol and Drug Abuse Patient Records regulations: The Federal rules restrict any use of the information to criminally investigate or prosecute any alcohol or drug abuse patient.[facility] the event this information is protected by the Federal Confidentiality of Alcohol and Drug Abuse Patient Records regulations: The Federal rules restrict any use of the information to criminally investigate or prosecute any alcohol or drug abuse patient.[facility] the event this information is protected by the Federal Confidentiality of Alcohol and Drug Abuse Patient Records regulations: The Federal rules restrict any use of the information to criminally investigate or prosecute any alcohol or drug abuse patient.[facility] the event this information is protected by the Federal Confidentiality of Alcohol and Drug Abuse Patient Records regulations: The Federal rules restrict any use of the information to criminally investigate or prosecute any alcohol or drug abuse patient.[facility] the event this information is protected by the Federal Confidentiality of Alcohol and Drug Abuse Patient Records regulations: The Federal rules restrict any use of the information to criminally investigate or prosecute any alcohol or drug abuse patient.[facility] Reason for Visit (unrecogniz ed section and content) Reason Comments Initial Consult [address] FOR RECORDS PERTAINING TO PATIENTS WHO ARE OR HAVE BEEN ENROLLED IN A CHEMICAL DEPENDENCY/SUBSTANCEABUSE PROGRAM, SOME INFORMATION MAY BE OMITTED. This clinical summary was aggregated from multiple sources. Caution should be exercised in using it in the provision of clinical care. This summary normalizes information from multiple sources, and as a consequence, information in this document may materially change the coding, format and clinical context of patient data. In addition, data may be omitted in some cases. CLINICAL DECISIONS SHOULD BE BASED ON THE PRIMARY CLINICAL RECORDS. [facility] [employer] [facility]. provides no warranty or guarantee of the accuracy or completeness of information in this document.
[2025-04-30 11:16] LABS: Hematocrit 41.8 % (40-54); Hemoglobin 14.5 g/dL (13.0-16.5); Mean Corp Hgb Conc 34.7 g/dL (32-36); Mean Corpuscular Volume 91.7 fL (80-94); Mean Platelet Vol. 9.4 fl (6.2-12.0); Platelet Count 293 K/mm3 (150-450); RBC Distribution Width CV 13.5 % (11.6-14.6); RBC Distribution Width SD 45.3 fl (35.1-43.9); Red Blood Count 4.56 M/mm3 (4.6-6.2); White Blood Count 7.3 K/mm3 (4.4-11.0)
[2025-04-30 12:24] LABS: AST(SGOT) 41 U/L (<=37); Alanine Aminotransfer ALT/SGPT 30 U/L (<=46); Albumin, Serum 3.8 g/dL (3.4-4.8); Alkaline Phosphatase 181 U/L (40-129); Anion Gap 13 (5-15); BUN 19 mg/dL (4-19); BUN/Creat Ratio 54.7 RATIO (10-20); CRP 4.10 mg/L (0.0-3.0); Calcium,Total 9.5 mg/dL (7.6-11.0); Carbon Dioxide 20.2 mmol/L (21.0-32.0); Chloride 101 mmol/L (98-108); Cholesterol 230 mg/dL (<=200); Globulin 3.3 g/dL (2.2-4.2); Glucose 93 mg/dL (70-99); Low Density Lipoprotein Calc. 142 mg/dL; PSA,Total - Annual Screen 2.21 ng/mL (0.02-4.00); Potassium 4.2 mmol/L (3.3-5.1); Triglycerides 100 mg/dL; Very Low Density Lipoprotein 20 mg/dL (5-40); cholesterol:hdl ratio screen 3.40
== END | disposition home or self-care (01) ==
LOC: LAB.FUTURE 04:08 → LAB 04:11
PROVIDERS: PCP Family Medicine; Referring Provider Nurse Practitioner Primary Care; Visit Provider Nurse Practitioner Primary Care
DX: Z13.9 Encounter for screening, unspecified (principal); J32.9 Chronic sinusitis, unspecified; R29.898 Other symptoms and signs involving the musculoskeletal system; G62.9 Polyneuropathy, unspecified; M48.00 Spinal stenosis, site unspecified
CPT/HCPCS: 36415; 80053; 80061; 84153; 84402; 84403; 84439; 84443; 85027; 85652; 86140; G0103